=== PATIENT | female | born 1955 | race Caucasian/White ===

== ENCOUNTER 2019-10-25 16:50 | Emergency (ER) | payer MEDICARE, SELFPAY ==
[2019-10-25 16:54] VITALS: BP 123/104; PULSE 82; RESP 19; TEMP 36.8; O2SAT 89; BMI 40.4
--- NOTE | 2019-10-25 17:11 | ED.VIS.GEN ---
History of Present Illness Chief Complaint: Fall Informant: Patient Onset: Today Current Severity: Moderate Maximum Severity: Severe Narrative: Patient presents after a fall down 2 steps at home. She states she lost her balance and fell backwards. She complaining of pain to her right arm and her back. She had a reverse right shoulder replacement last year at the [facility]. She is right-hand dominant. - Past Medical History (1) Presence of IVC filter Status: Chronic (2) Kidney stone Status: Chronic (3) Hypothyroid Status: Chronic (4) Anxiety Status: Chronic Past Medical History - Allergies and Home Meds Allergies/Adverse Reactions: Allergies Sulfa (Sulfonamide Antibiotics) Allergy (Verified 10/25/19 16:52) Rash erythromycin base Adverse Reaction (Verified 10/25/19 16:52) Abd cramps/diarrhea Penicillins Adverse Reaction (Verified 10/25/19 16:52) Abd cramps/diarrhea Primary Care Physician: Sixto Viera III, MD [Primary Care Provider] - Prior records reviewed: Yes Surgical History: appendectomy, cholecystectomy, gastric bypass, - - Reverse right shoulder replacement Lives: Spouse/ Significant Other Review of Systems General: Denies: Chills, Fever Eyes: Denies: Visual changes - bilaterally ENT: Denies: Bilateral ear pain Cardiovascular: Denies: Chest pain Respiratory: Denies: Dyspnea Gastrointestinal: Denies: Abdominal pain Musculoskeletal: Reports: Back pain, Extremity Pain Neurological: Denies: Headache, Parasthesia Hematologic: Denies: Easy bruising, Easy bleeding Allergy: Denies: Uticaria Physical Exam Vital Signs/Narrative: Vital Signs Temp Pulse Resp BP Pulse Ox 10/25/19 16:54 98.2 F 82 19 H 123/104 H 89 Inital Vital Signs reviewed: Yes General: Well nourished, Well developed Head: Normocephalic ENT: Moist mucous membranes Neck: Supple Cardiovascular: Regular rate, Regular rhythm Respiratory: No distress, CTA bilaterally Abdomen: Soft, Nontender Extremities: - - Tenderness of the right proximal humerus with deformity noted. Strong distal pulses. No tenderness at the wrist or elbow. Can wiggle fingers. Neurological: Alert, Oriented x3 Psychological: Normal affect Diagnostic/Tx/Re-eval Portable chest x-ray per my review shows no pneumothorax. Right humerus fracture shows a midshaft humerus periprosthetic fracture. - Medical Decision Making Patient was given morphine and Zofran for pain control. X-ray results are discussed with her. She does have a periprosthetic midshaft humerus fracture. I will speak with orthopedics at [facility] where she had her procedure done for transfer. On repeat exam patient continues to have good distal pulses and can wiggle fingers. ED Disposition - Plan for ED Patient: Disposition: [facility] - Main Diagnosis: Periprosthetic fracture around internal prosthetic right shoulder joint Referrals: Sixto Viera III, MD [Primary Care Provider] -
[2019-10-25 17:13] VITALS: O2SAT 96
[2019-10-25] MEDS: Ondansetron 4 MG/2 ML Vial IV (17:55)
[2019-10-25] MEDS: 0.9% Normal Saline 1,000 ML 15 ML IV (17:55)
[2019-10-25] MEDS: Morphine 4 MG/ML Syringe IV (17:56)
[2019-10-25 18:03] LABS: Absolute Lymphocyte Count 1.55 X10^3/uL (0.83-4.51); Absolute Neutrophil Count 16.1 X10^3/uL (2.0-7.7); Basophil# 0.08 X10^3/uL; Basophil% 0.4 % (0-1); Eosinophil# 0.09 X10^3/uL; Eosinophils% 0.5 % (0-5); Hematocrit 42.5 % (37-47); Hemoglobin 13.7 g/dL (12.0-15.0); Lymphocyte # 1.55 X10^3/ul (4.0); Lymphocyte % 8.2 % (19-41); Mean Corp Hgb Conc 32.2 g/dL (32-36); Mean Corpuscular Hgb 31.1 pg (27.0-32.0); Mean Corpuscular Volume 96.6 fL (81-99); Mean Platelet Vol. 10.6 fl (6.2-12.0); Monocyte# 0.99 X10^3/uL; Monocyte% 5.2 % (0-10); NRBC Flagged by Analyzer 0 % (0-5); Neutrophil % 85.1 % (47-70); Platelet Count 268 K/mm3 (150-450); RBC Distribution Width CV 14.1 % (11.6-14.6); RBC Distribution Width SD 50.5 fl (35.1-43.9); White Blood Count 18.9 K/mm3 (4.4-11.0)
[2019-10-25 18:16] LABS: Anion Gap 4 (5-15); BUN 22 mg/dL (7-18); BUN/Creat Ratio 26.5 RATIO (10-20); Calcium,Total 8.5 mg/dL (8.5-10.1); Chloride 108 mmol/L (98-107); Creatinine, Serum 0.83 mg/dL (0.55-1.02); EST Glomerular Filtration Rate 73 mL/min (>60); Est Glom Filt Rate - Afr Amer 89 mL/min (>60); Estimated Creatinine Clearance 58.35 ml/min; Glucose 133 mg/dL (74-106); Potassium 4.7 mmol/L (3.5-5.1); Sodium Level 142 mmol/L (136-145)
--- NOTE | 2019-10-25 18:20 | RAD_ITS ---
STUDY: X-RAY - RIGHT HUMERUS REASON FOR EXAM: Female, 64 years old. Fall today. Rt arm pain. TECHNIQUE: 3 view(s) of the humerus. COMPARISON: None. FINDINGS: Examination is extremely limited due to positioning, body habitus and technique. There is shoulder prosthesis with probable fracture and angulation of the mid humerus. RAD/Humerus min 2 Views IMPRESSION: Possible mid humeral fracture at the prosthesis tip. Extremely limited exam. Refer to proper diagnostic imaging. Electronically Signed: Aleks Pérez, at 19:25 EDT Tel , Service support ,
--- NOTE | 2019-10-25 18:20 | RAD_ITS ---
STUDY: X-RAY CHEST REASON FOR EXAM: Female, 64 years old. fall today. Rt arm pain TECHNIQUE: Frontal view of the chest COMPARISON: None. FINDINGS: The lungs are clear and expanded. There is no demonstrated pleural abnormality. Normal size heart. Normal mediastinum and frida. Normal visualized pulmonary arteries. Normal visualized aortic arch and descending thoracic aorta. Normal visualized thoracic spine. Normal visualized ribs, clavicles, and shoulders. There is no demonstrated abnormality of the visualized soft tissue structures of the upper abdomen. RAD/Chest 1 View (Portable) IMPRESSION: Normal x-ray examination of the chest. Electronically Signed: Aleks Pérez, at 19:26 EDT Tel , Service support ,
[2019-10-25 20:02] VITALS: BP 113/65; PULSE 72; RESP 16; TEMP 37.3; O2SAT 98
[2019-10-25 23:00] VITALS: BP 108/79; PULSE 79; RESP 16; O2SAT 93
[2019-10-26] VITALS: BP 120/70; PULSE 82; RESP 18; O2SAT 96
[2019-10-26] MEDS: Morphine 4 MG/ML Syringe IV ×2 (01:54→07:40)
[2019-10-26 02:00] VITALS: BP 103/59; PULSE 78; RESP 15; O2SAT 96
[2019-10-26 04:00] VITALS: BP 122/76; PULSE 78; RESP 17; O2SAT 97
[2019-10-26 06:00] VITALS: BP 117/76; PULSE 72; RESP 13; O2SAT 99
--- NOTE | 2019-10-26 07:18 | ED.RN ---
[facility] TRANSFER LINE CONTACTED REGARDING STATUS OF BED AVAILABILITY, STATES PATIENT REMAINS ON LIST AND WAITING FOR DISCHARGES PRIOR TO BED ASSIGNMENT. WILL CONTINUE TO FOLLOW UP.
[2019-10-26 08:10] VITALS: BP 120/64; PULSE 81; RESP 12; O2SAT 98
--- NOTE | 2019-10-26 08:10 | ED.RN ---
BED ASSIGNMENT OBTAINED FROM [facility]. H-70 BED 38. [facility] 30 MIN ETA.
== END 2019-10-26 09:17 | disposition short-term general hospital (02) ==
PROVIDERS: Emergency Provider Emergency Medicine; PCP Family Medicine
DX: M97.31XA Periprosthetic fracture around internal prosthetic right shoulder joint, initial encounter (principal); S42.301A Unspecified fracture of shaft of humerus, right arm, initial encounter for closed fracture; W10.9XXA Fall (on) (from) unspecified stairs and steps, initial encounter; Y93.9 Activity, unspecified; Y92.009 Unspecified place in unspecified non-institutional (private) residence as the place of occurrence of the external cause; Y99.9 Unspecified external cause status; E03.9 Hypothyroidism, unspecified; F41.9 Anxiety disorder, unspecified; Z79.01 Long term (current) use of anticoagulants; Z79.899 Other long term (current) drug therapy; Z98.84 Bariatric surgery status; Z87.442 Personal history of urinary calculi
CPT/HCPCS: 51702; 71045; 73060; 80048; 85025; 96360; 96361; 96374; 96375; 96376; 99285; J7030; A4216; J2405

== ENCOUNTER 2019-11-17 10:53 | Emergency (ER) | payer MEDICARE, SELFPAY ==
[2019-11-17 10:54] VITALS: BP 136/69; PULSE 73; RESP 18; TEMP 36.8; O2SAT 93; BMI 37.8
--- NOTE | 2019-11-17 11:08 | ED.VIS.GEN ---
History of Present Illness Chief Complaint: Fever Informant: Patient, Significant Other Onset: Yesterday - T-max 101.6 ?F Context: Sudden Onset Timing: Intermittent Quality: Fever Location: Not applicable Current Severity: - - Presently no elevated temperature Maximum Severity: Moderate Worsened by: Nothing Relieved by: Nothing Associated Symptoms: No associated symptoms Narrative: Patient is a 64-year-old woman who was admitted 2 weeks ago to the [facility] due to a right arm fracture, finger fracture and multiple rib fractures. She presents because of documented temperature 101.6 ?F last evening as a T-max. She denies headache. She denies photophobia, neck pain or neck stiffness. She denies rhinorrhea, congestion postnasal drainage. Denies change in smell or taste. She denies ear pain or drainage. She denies cough or shortness of breath. She denies nausea, vomiting or diarrhea. She denies dysuria, frequency, urgency or hematuria. She has not noted any rashes. She has no ill contacts. Prior similar symptoms: No Recent Illness/Hospitalization: Yes - Past Medical History (1) Hypothyroid Status: Chronic (2) Kidney stone Status: Chronic (3) Presence of IVC filter Status: Chronic Past Medical History - Allergies and Home Meds Allergies/Adverse Reactions: Allergies Sulfa (Sulfonamide Antibiotics) Allergy (Verified 11/17/19 10:57) Rash erythromycin base Adverse Reaction (Verified 11/17/19 10:57) Abd cramps/diarrhea Penicillins Adverse Reaction (Verified 11/17/19 10:57) Abd cramps/diarrhea Primary Care Physician: Sixto Viera III, MD [Primary Care Provider] - Prior records reviewed: Yes Surgical History: appendectomy, cholecystectomy, gastric bypass, - - Reverse right shoulder replacement Lives: Spouse/ Significant Other Smoking Status: Never smoker Alcohol: None Drugs: None Review of Systems General: Reports: Fever. Denies: Chills, Malaise, Subjective, Sweats, Weight loss, - Eyes: Denies: Visual changes - bilaterally, Blurred Vision - bilaterally ENT: Denies: Bilateral ear pain, Rhinorrhea, Sore throat Cardiovascular: Reports: Chest pain - Due to multiple rib fractures on the right.. Denies: Palpitations Respiratory: Denies: Dyspnea, Cough, Dyspnea on exertion Gastrointestinal: Denies: Abdominal pain, Nausea, Vomiting, Diarrhea, Melena, Hematochezia Genitourinary: Denies: Dysuria, Hematuria, Frequency Musculoskeletal: Denies: Myalgias, Arthralgias, Neck pain, Back pain, Swelling, Extremity Pain Skin: Denies: Rash, Wounds Neurological: Denies: Headache, Weakness, Numbness Endocrine: Denies: Polyuria, Polydipsia Hematologic: Denies: Easy bruising, Easy bleeding Physical Exam Vital Signs/Narrative: Vital Signs Temp Pulse Resp BP Pulse Ox 11/17/19 10:54 98.3 F 73 18 136/69 H 93 Inital Vital Signs reviewed: Yes General: Well nourished, Well developed, Obese, No Acute Distress Head: Normocephalic, Atraumatic Eyes: Perrl, EOMI ENT: Moist mucous membranes, No rhinorrhea Neck: Supple, Nontender, No lymphadenopathy, No JVD Cardiovascular: Regular rate, Regular rhythm, No murmurs, Normal S1, Normal S2 Respiratory: No distress, CTA bilaterally, Chest tenderness Abdomen: Soft, Nontender, Nondistended, Normal bowel sounds Rectal: Deferred Back: Nontender, Normal Inspection. Negative for: CVA tenderness Extremities: Nontender, Edema - Pitting 2 mm Skin: Normal color, No rash, No Trauma. Negative for: Cyanosis, Diaphoresis, Jaundice Neurological: Alert, Oriented x3, Cranial nerves II-XII grossly intact, Normal Strength, Normal Sensation Psychological: Normal affect, Normal Mood Diagnostic/Tx/Re-eval Impressions Chest X-Ray 11/17/19 11:50 IMPRESSION: Small right pleural effusion with right basilar atelectasis/infiltrate. Stable increased linear markings at the left lung base. Electronically Signed: Carlos Villareal, at 12:12 EDT , Service support , 11/17/19 11:50 Chest PA and Lateral [RAD] Stat Laboratory Results 11/17/19 11/17/19 11/17/19 11:44 11:44 11:44 WBC 14.6 H RBC 4.04 L Hgb 12.4 Hct 39.3 MCV 97.3 MCH 30.7 MCHC 31.6 L RDW Std Deviation 53.8 H RDW Coeff of Steffany 15.0 H Plt Count 361 MPV 10.0 Immature Gran % (Auto) 1.000 H Neut % (Auto) 88.9 H Lymph % (Auto) 4.8 L [place] % (Auto) 4.7 Eos % (Auto) 0.1 Baso % (Auto) 0.5 Absolute Neuts (auto) 12.9 H Absolute Lymphs (auto) 0.70 L Nucleated RBC % 0 Sodium 138 Potassium 4.3 Chloride 103 Carbon Dioxide 32.0 Anion Gap 3 L BUN 16 Creatinine 0.74 Estim Creat Clear Calc 65.45 Est GFR (MDRD) Af Amer 101 Est GFR (MDRD) Non-Af 84 BUN/Creatinine Ratio 21.6 H Glucose 109 H Lactic Acid 1.4 Calcium 8.8 Urine Color Urine Clarity Urine pH Ur Specific [place] Urine Protein Urine Glucose (UA) Urine Ketones Urine Occult Blood Urine Nitrite Urine Bilirubin Urine Urobilinogen Ur Leukocyte Esterase Urine RBC Urine WBC Ur Squamous Epith Cells Urine Bacteria Urine Mucus 11/17/19 12:25 WBC RBC Hgb Hct MCV MCH MCHC RDW Std Deviation RDW Coeff of Steffany Plt Count MPV Immature Gran % (Auto) Neut % (Auto) Lymph % (Auto) [place] % (Auto) Eos % (Auto) Baso % (Auto) Absolute Neuts (auto) Absolute Lymphs (auto) Nucleated RBC % Sodium Potassium Chloride Carbon Dioxide Anion Gap BUN Creatinine Estim Creat Clear Calc Est GFR (MDRD) Af Amer Est GFR (MDRD) Non-Af BUN/Creatinine Ratio Glucose Lactic Acid Calcium Urine Color Yellow Urine Clarity Cloudy Urine pH 7.0 Ur Specific [place] 1.010 Urine Protein 15 H Urine Glucose (UA) Normal Urine Ketones Negative Urine Occult Blood 50 H Urine Nitrite Positive H Urine Bilirubin Negative Urine Urobilinogen 1 H Ur Leukocyte Esterase 500 H Urine RBC 0 SEEN Urine WBC 10-25 SEEN Ur Squamous Epith Cells 0 SEEN Urine Bacteria 2+ Urine Mucus 0 SEEN Urine appears to be the source. However because there is concern for right lower lobe infiltrate and she also has symptoms of diarrhea rhinorrhea COVID test was obtained. She was discharged with prescription for Augmentin and azithromycin. This will cover both urologic and respiratory pathogens. - Medical Decision Making Patient with complaint of fever. This may represent atelectasis versus pneumonia since she has multiple rib fracture on the right. Chest x-ray was obtained. Will obtain urine to evaluate for urinary tract infection since she is an elderly woman. Appropriate blood work was obtained. She has no symptoms to suggest COVID. Cover test was not performed. ED Disposition - Plan for ED Patient: Disposition: Home or Assisted Living Diagnosis: Suspected 2019 novel coronavirus infection, Infiltrate of lower lobe of right lung present on imaging study, Complicated urinary tract infection Instructions: ED CYSTITIS Female Adult, ED PNEUMONITIS Adult, ED URI Viral Prescriptions: Amox/Clavulanate Tablet [Augmentin Tablet] 875 mg PO Q12H #14 tab Transmission Status: Pending to [id number] Azithromycin [Zithromax Z-Dajuan] 250 mg PO UD #1 box Transmission Status: Pending to [id number] Referrals: Sixto Viera III, MD [Primary Care Provider] - 3-5 Days if not improving Additional Instructions: You should self quarantine yourself until your COVID test returns.
--- NOTE | 2019-11-17 11:50 | RAD_ITS ---
STUDY: X-RAY CHEST REASON FOR EXAM: Female, 64 years old. Recent fall with fx to right humerus, discharged from [facility] 2 weeks ago, today has fever and pain TECHNIQUE: PA and lateral views of the chest. COMPARISON: Comparison is made with prior examination of 10/25/2019. FINDINGS: EKG electrodes are seen. Small right pleural effusion with right basilar atelectasis and/or early infiltrate. Minimal increased linear markings at the left lung base suggestive of atelectasis. Normal size heart. Normal mediastinum and frida. Normal visualized pulmonary arteries. There is atherosclerotic calcification of the aortic arch with tortuosity. Normal visualized thoracic spine. The patient is status post right shoulder replacement. There is no demonstrated abnormality of the visualized soft tissue structures of the upper abdomen. RAD/Chest PA and Lateral IMPRESSION: Small right pleural effusion with right basilar atelectasis/infiltrate. Stable increased linear markings at the left lung base. Electronically Signed: Carlos Villareal, at 12:12 EDT , Service support ,
[2019-11-17 11:56] LABS: Absolute Neutrophil Count 12.9 X10^3/uL (2.0-7.7); Basophil# 0.07 X10^3/uL; Basophil% 0.5 % (0-1); Eosinophil# 0.02 X10^3/uL; Eosinophils% 0.1 % (0-5); Hematocrit 39.3 % (37-47); Hemoglobin 12.4 g/dL (12.0-15.0); Lymphocyte % 4.8 % (19-41); Mean Corp Hgb Conc 31.6 g/dL (32-36); Mean Corpuscular Hgb 30.7 pg (27.0-32.0); Mean Corpuscular Volume 97.3 fL (81-99); Monocyte# 0.69 X10^3/uL; Monocyte% 4.7 % (0-10); NRBC Flagged by Analyzer 0 % (0-5); Neutrophil # 12.94 X10^3/uL (2.7-7.7); Neutrophil % 88.9 % (47-70); Platelet Count 361 K/mm3 (150-450); RBC Distribution Width SD 53.8 fl (35.1-43.9); Red Blood Count 4.04 M/mm3 (4.2-5.4); White Blood Count 14.6 K/mm3 (4.4-11.0)
[2019-11-17 12:15] LABS: Anion Gap 3 (5-15); BUN 16 mg/dL (7-18); BUN/Creat Ratio 21.6 RATIO (10-20); Calcium,Total 8.8 mg/dL (8.5-10.1); Chloride 103 mmol/L (98-107); Creatinine, Serum 0.74 mg/dL (0.55-1.02); EST Glomerular Filtration Rate 84 mL/min (>60); Est Glom Filt Rate - Afr Amer 101 mL/min (>60); Estimated Creatinine Clearance 65.45 ml/min; Glucose 109 mg/dL (74-106); Potassium 4.3 mmol/L (3.5-5.1); Sodium Level 138 mmol/L (136-145)
[2019-11-17 12:18] LABS: Lactic Acid 1.4 mmol/L (0.4-1.9)
[2019-11-17 12:35] LABS: Mucous, Urine 0 SEEN /hpf (<or=2+); Red Blood Cells-Urine 0 SEEN /hpf (0-5); Squamous Epithelial Cells - UA 0 SEEN /hpf (5-10)
[2019-11-17 12:37] LABS: Color, Urine Yellow (Yellow); Glucose, Dipstick Normal (Normal); Ketone-Dipstick Negative (Negative); Leukocyte Esterase-Dipstick 500 /ul (Negative); Nitrite-Dipstick Positive (Negative); Occult Blood-Urine 50 /ul (Negative); Protein-Dipstick 15 mg/dl (Negative); Urine Bilirubin Dipstick Negative (Negative); Urine Clarity Cloudy (Clear); Urine Urobilinogen 1 mg/dl (Normal)
[2019-11-17 12:43] LABS: Bacteria 2+ /hpf (None Seen); White Blood Cells 10-25 SEEN /hpf (0-5)
[2019-11-17 12:53] VITALS: PULSE 85; RESP 18; O2SAT 93
[2019-11-17] MEDS: Ceftriaxone 1 GM/50 ML BAG IV (13:33)
[2019-11-17 13:55] VITALS: BP 95/33; PULSE 83; RESP 18; O2SAT 93
== END 2019-11-17 14:30 | disposition home or self-care (01) ==
PROVIDERS: Emergency Provider Emergency Medicine; PCP Family Medicine
DX: R50.9 Fever, unspecified (principal); E03.9 Hypothyroidism, unspecified; N39.0 Urinary tract infection, site not specified; R91.8 Other nonspecific abnormal finding of lung field; S22.49XD Multiple fractures of ribs, unspecified side, subsequent encounter for fracture with routine healing; S42.301D Unspecified fracture of shaft of humerus, right arm, subsequent encounter for fracture with routine healing; S62.609D Fracture of unspecified phalanx of unspecified finger, subsequent encounter for fracture with routine healing; X58.XXXD Exposure to other specified factors, subsequent encounter; Z79.899 Other long term (current) drug therapy; Z79.01 Long term (current) use of anticoagulants
CPT/HCPCS: 71046; 80048; 81001; 83605; 85025; 87086; 87088; 87186; 87635; 94799; 96365; 99285; J7040; P9612; A4216; U0003

== ENCOUNTER 2020-09-03 14:20 | Inpatient (IN) | payer MEDICARE, SELFPAY ==
[2020-09-03] VITALS (9 sets, daily range): BP systolic 90–103; BP diastolic 46–72; PULSE 58–89; RESP 15–20; TEMP 36.2–37.1; O2SAT 90–96; BMI 39.3; BMI 40.3
--- NOTE | 2020-09-03 15:29 | EKG12_ITS ---
Test Reason : Blood Pressure : / mmHG Vent. Rate : 073 BPM Atrial Rate : 073 BPM P-R Int : 174 ms QRS Dur : 132 ms QT Int : 432 ms P-R-T Axes : 039 072 022 degrees QTc Int : 475 ms Sinus rhythm with Premature atrial complexes Right bundle branch block Abnormal ECG Confirmed by KELLIE GONZALEZ, LILIANA ([id number]), editorial project manager TROY MARCELO ([id number]) on 09/07/2020 2:00:47 PM Referred By: SAKINA Confirmed By:LILIANA HOPKINS MD
--- NOTE | 2020-09-03 15:47 | EX.ED.DYSGE1 ---
HPI History of Present Illness Chief Complaint: Fever Narrative Narrative: 64-year-old female presenting with shortness of breath, fevers, myalgias, cough, malaise since Sunday. Patient states that she does not have any chest pain. Patient states that she normally has to use 1.5 L of O2 via nasal cannula at nighttime when she is sleeping because she had a sleep study that showed she was hypoxic at night. She states that she has had to use this during the week during waking hours. She keeps having to turn it up. Patient states that she does have history of pulmonary embolism and is on Coumadin. She checks her INR levels at home and they have been therapeutic. Patient denies a history of CHF or cardiac issues. She does not know new leg swelling. Patient also complains of dysuria and urinary frequency. She is concerned she might have a urinary tract infection. [facility] Medical History (Updated 09/03/20 @ 22:16 by Elke Varma) Anxiety Arthritis Asthma Cancer Chronic pain DVT (deep venous thrombosis) GERD (gastroesophageal reflux disease) [place] filter in place History of diabetes mellitus resolved following bariatric surgery Kidney disease On home oxygen therapy Pulmonary embolism Home Medications allopurinol 100 mg PO BID 10/25/19 [History Last Taken Unknown] cholecalciferol (vitamin D3) 2,000 unit PO DAILY 10/25/19 [History Last Taken Unknown] fluoxetine 20 mg PO DAILY 10/25/19 [History Last Taken Unknown] warfarin 5 mg PO DAILY 10/25/19 [History Last Taken Unknown] levothyroxine 100 mcg PO DAILY 09/03/20 [History Last Taken Unknown] Allergy/AdvReac Type Severity Reaction Status Date / Time Sulfa (Sulfonamide Allergy Rash Verified 09/03/20 14:23 Antibiotics) erythromycin base AdvReac Abd Verified 09/03/20 14:23 cramps/diarrhea Penicillins AdvReac Abd Verified 09/03/20 14:23 cramps/diarrhea Surgical History (Updated 09/03/20 @ 22:16 by Elke Varma) History of appendectomy History of cholecystectomy History of embolic filter insertion History of reverse total replacement of shoulder joint Hx of gastric bypass Knee joint replacement status Social History Smoking Status: Former smoker ROS ROS ED Constitutional Constitutional ED: Reports chills and fever(s); Denies sweats Eyes Eyes: Denies blurry vision or change in vision ENT ENT ED: Denies ear pain, rhinorrhea or sore throat Cardiovascular Cardiovascular: Denies chest pain, palpitations or racing heartbeat Respiratory/Chest Respiratory/Chest: Reports cough, dyspnea and dyspnea on exertion; Denies sputum Gastrointestinal Gastrointestinal: Denies abdominal pain, constipation, diarrhea or vomiting Genitourinary Genitourinary ED: Reports dysuria and urinary frequency; Denies hematuria Musculoskeletal Musculoskeletal: Reports myalgias; Denies arthralgias or neck pain Integumentary Denies abscess, Abrasions or rash Neurologic Neurologic: Denies headache(s), paresthesias or weakness Psychiatric Psychiatric: Denies anxiety, depression, suicidal ideation or suicidal thoughts Endocrine Endocrinology: Denies polydipsia or polyuria EXAM Physical Exam Const Vital Signs: 09/03/20 14:21 09/03/20 15:29 09/03/20 16:07 Temperature 98.3 F 98.7 F Temperature Source Temporal Oral Pulse Rate 89 77 Respiratory Rate 17 19 H Respiratory Effort Normal Respiratory Pattern Normal Blood Pressure 98/54 L 102/62 Blood Pressure Mean 68 75 Pulse Ox 90 96 Oxygen Delivery Method Room Air Room Air 09/03/20 16:31 09/03/20 17:34 09/03/20 18:27 Temperature 98.4 F 98.3 F Temperature Source Oral Oral Pulse Rate 73 62 68 Respiratory Rate 20 H 18 16 Respiratory Effort Respiratory Pattern Blood Pressure 94/46 L 95/52 L 96/59 L Blood Pressure Mean 62 66 71 Pulse Ox 95 95 96 Oxygen Delivery Method Room Air Room Air Room Air 09/03/20 20:40 Temperature 97.2 F L Temperature Source Temporal Pulse Rate 73 Respiratory Rate 15 Respiratory Effort Respiratory Pattern Blood Pressure 97/63 Blood Pressure Mean 74 Pulse Ox 96 Oxygen Delivery Method Room Air Positive obese General Appearance ED: NAD; Negative for cyanotic or pallor Nutritional Appearance: obese HEENT Reports normocephalic, head/scalp atraumatic and moist mucous membranes Negative for trauma Eyes PERRL and EOMs intact bilaterally Resp normal respiratory effort and clear to auscultation bilaterally Auscultation: Negative for rales, rhonchi or wheezes Cardio regular rate and regular rhythm GI normal to inspection, nondistended, normoactive bowel sounds and non-distended Auscultation: normoactive bowel sounds Palpation: soft Narrative: Deferred Back/Spine Cervical Spine: cervical spine tenderness Extremity normal to inspection General Extremety ED: Negative for edema or tenderness General Extremity: Negative for edema Neuro oriented x3 and CN's II-XII intact bilaterally Sensorium / Orientation: alert Motor Exam: strength 5/5 throughout Psych mental status grossly normal Attitude: No agitated Skin no rashes or lesions noted and no wounds General Skin Exam: Negative for jaundice or pallor MDM MDM MDM Narrative Medical decision making narrative: Patient presenting with shortness of breath. She states she normally only wears oxygen at night and she said this is only 1.5 L via nasal cannula. Patient states she has been having to wear her oxygen around the house because she is dyspneic. She describes dyspnea on exertion but not orthopnea. She also claims she has had fevers at home. She complains of body aches. Patient also is concerned for UTI. Patient's lab work today shows a leukocytosis of 14.4, hemoglobin hematocrit stable, platelets normal INR is 2.2 so she is therapeutic for her pulmonary embolism. She does have an acute kidney injury with a creatinine of 1.90 previously 0.7. She was initially given 500 cc of IV fluids while pending her Covid testing. After testing was negative she was given another liter of fluids. Patient's LFTs are slightly elevated. Her troponin is 0.154. I did speak with the patient again and she states she has not had any sort of chest pain. I rechecked her troponin and it had gone down 0.117. Patient's chest x-ray is interpreted by myself shows no acute cardiopulmonary process as interpreted by myself and radiologist does agree.. Patient's EKG is sinus rhythm at 73 bpm with PACs but there is no sign of ischemic change and no significant interval change from previous EKG performed 20 April 2007 as interpreted by myself. Patient does have urinary tract infection. Given her initial vitals she was pancultured. These are pending. She is started on Rocephin. Impression: 1. UTI 2. Acute kidney injury 3. Elevated troponin 4. Leukocytosis Lab Data Labs: Laboratory Results - last 24 hr 09/03/20 09/03/20 09/03/20 15:40 15:40 15:40 WBC 14.9 H RBC 4.23 Hgb 13.0 Hct 40.0 MCV 94.6 MCH 30.7 MCHC 32.5 RDW Std Deviation 49.3 H RDW Coeff of Steffany 14.1 Plt Count 168 MPV 12.0 Immature Gran % (Auto) 0.700 Neut % (Auto) 91.2 H Lymph % (Auto) 2.7 L [place] % (Auto) 4.2 Eos % (Auto) 0.9 Baso % (Auto) 0.3 Absolute Neuts (auto) 13.6 H Absolute Lymphs (auto) 0.40 L Nucleated RBC % 0 Differential Comment SCANNED PT 23.6 H INR 2.2 APTT 38.9 H Sodium 134 L Potassium 4.2 Chloride 101 Carbon Dioxide 25.0 Anion Gap 8 BUN 33 H Creatinine 1.90 H Estim Creat Clear Calc 25.49 Est GFR (MDRD) Af Amer 34 L Est GFR (MDRD) Non-Af 28 L BUN/Creatinine Ratio 17.4 Glucose 130 H Lactic Acid Calcium 8.5 Total Bilirubin 0.60 AST 189 H ALT 76 H Alkaline Phosphatase 121 H Troponin I 0.154 H Total Protein 6.2 L Albumin 2.4 L Globulin 3.8 Albumin/Globulin Ratio 0.6 L Urine Color Urine Clarity Urine pH Ur Specific [place] Urine Protein Urine Glucose (UA) Urine Ketones Urine Occult Blood Urine Nitrite Urine Bilirubin Urine Urobilinogen Ur Leukocyte Esterase Urine RBC Urine WBC Ur Squamous Epith Cells Amorphous Sediment Urine Bacteria Urine Mucus COVID-19 (ADRIEN) 09/03/20 09/03/20 09/03/20 15:40 16:00 16:40 WBC RBC Hgb Hct MCV MCH MCHC RDW Std Deviation RDW Coeff of Steffany Plt Count MPV Immature Gran % (Auto) Neut % (Auto) Lymph % (Auto) [place] % (Auto) Eos % (Auto) Baso % (Auto) Absolute Neuts (auto) Absolute Lymphs (auto) Nucleated RBC % Differential Comment PT INR APTT Sodium Potassium Chloride Carbon Dioxide Anion Gap BUN Creatinine Estim Creat Clear Calc Est GFR (MDRD) Af Amer Est GFR (MDRD) Non-Af BUN/Creatinine Ratio Glucose Lactic Acid 1.5 Calcium Total Bilirubin AST ALT Alkaline Phosphatase Troponin I Total Protein Albumin Globulin Albumin/Globulin Ratio Urine Color Yellow Urine Clarity Sl. Cloudy Urine pH 5.0 Ur Specific [place] 1.020 Urine Protein 30 H Urine Glucose (UA) Normal Urine Ketones 5 H Urine Occult Blood 25 H Urine Nitrite Negative Urine Bilirubin 1 H Urine Urobilinogen 1 H Ur Leukocyte Esterase 500 H Urine RBC 0-5 SEEN Urine WBC 50-100 SEEN Ur Squamous Epith Cells 5-10 SEEN Amorphous Sediment 1+ URATE Urine Bacteria 3+ Urine Mucus 0 SEEN COVID-19 (ADRIEN) Not Detected 09/03/20 19:25 WBC RBC Hgb Hct MCV MCH MCHC RDW Std Deviation RDW Coeff of Steffany Plt Count MPV Immature Gran % (Auto) Neut % (Auto) Lymph % (Auto) [place] % (Auto) Eos % (Auto) Baso % (Auto) Absolute Neuts (auto) Absolute Lymphs (auto) Nucleated RBC % Differential Comment PT INR APTT Sodium Potassium Chloride Carbon Dioxide Anion Gap BUN Creatinine Estim Creat Clear Calc Est GFR (MDRD) Af Amer Est GFR (MDRD) Non-Af BUN/Creatinine Ratio Glucose Lactic Acid Calcium Total Bilirubin AST ALT Alkaline Phosphatase Troponin I 0.117 H Total Protein Albumin Globulin Albumin/Globulin Ratio Urine Color Urine Clarity Urine pH Ur Specific [place] Urine Protein Urine Glucose (UA) Urine Ketones Urine Occult Blood Urine Nitrite Urine Bilirubin Urine Urobilinogen Ur Leukocyte Esterase Urine RBC Urine WBC Ur Squamous Epith Cells Amorphous Sediment Urine Bacteria Urine Mucus COVID-19 (ADRIEN) Radiography Diagnostic Testing: Radiology Impression Chest X-Ray 09/03/20 16:12 IMPRESSION: No active disease. Electronically Signed: Vivek Thomason MD at 16:27 EDT Tel , Service support , Discharge Plan Disposition Disposition: Acute Care Hospital [facility] Discharge Date/Time: 09/03/20 21:26
--- NOTE | 2020-09-03 16:12 | RAD_ITS ---
STUDY: X-RAY CHEST REASON FOR EXAM: Female, 64 years old. dyspnea TECHNIQUE: Single AP portable view of the chest. COMPARISON: 11/17/2019 FINDINGS: The lungs are clear and expanded. There is no demonstrated pleural abnormality. Normal size heart. Normal mediastinum and frida. Normal visualized pulmonary arteries. Normal visualized aortic arch and descending thoracic aorta. Normal visualized thoracic spine. Status post right shoulder reverse arthroplasty. There is no demonstrated abnormality of the visualized soft tissue structures of the upper abdomen. RAD/Chest 1 View (Portable) IMPRESSION: No active disease. Electronically Signed: Vivek Thomason MD at 16:27 EDT Tel , Service support ,
[2020-09-03 16:14] LABS: Absolute Neutrophil Count 13.6 X10^3/uL (2.0-7.7); Basophil# 0.04 X10^3/uL; Basophil% 0.3 % (0-1); Eosinophil# 0.13 X10^3/uL; Eosinophils% 0.9 % (0-5); Lymphocyte % 2.7 % (19-41); Mean Corp Hgb Conc 32.5 g/dL (32-36); Mean Corpuscular Hgb 30.7 pg (27.0-32.0); Mean Corpuscular Volume 94.6 fL (81-99); Monocyte# 0.62 X10^3/uL; Monocyte% 4.2 % (0-10); NRBC Flagged by Analyzer 0 % (0-5); Neutrophil # 13.58 X10^3/uL (2.7-7.7); Neutrophil % 91.2 % (47-70); POSITIVE DIFFERENTIAL YES; Platelet Count 168 K/mm3 (150-450); RBC Distribution Width CV 14.1 % (11.6-14.6); RBC Distribution Width SD 49.3 fl (35.1-43.9); Red Blood Count 4.23 M/mm3 (4.2-5.4); White Blood Count 14.9 K/mm3 (4.4-11.0)
[2020-09-03 16:19] LABS: Differential Indicated SCAN CRITERIA MET
[2020-09-03 16:31] LABS: International Normalized Ratio 2.2; Prothrombin Time (Protime)PT. 23.6 SECONDS (11.7-14.9)
[2020-09-03 16:32] LABS: ALB/GLOB Ratio 0.6 RATIO (0.9-2.4); AST(SGOT) 189 U/L (15-37); Alanine Aminotransfer ALT/SGPT 76 U/L (13-56); Albumin, Serum 2.4 g/dL (3.2-5.0); Alkaline Phosphatase 121 U/L (45-117); Anion Gap 8 (5-15); BUN 33 mg/dL (7-18); BUN/Creat Ratio 17.4 RATIO (10-20); Calcium,Total 8.5 mg/dL (8.5-10.1); Chloride 101 mmol/L (98-107); EST Glomerular Filtration Rate 28 mL/min (>60); Est Glom Filt Rate - Afr Amer 34 mL/min (>60); Estimated Creatinine Clearance 25.49 ml/min; Globulin 3.8 g/dL (2.2-4.2); Glucose 130 mg/dL (74-106); Potassium 4.2 mmol/L (3.5-5.1); Protein, Total 6.2 g/dL (6.4-8.2); Sodium Level 134 mmol/L (136-145)
[2020-09-03 16:33] LABS: Partial Thromboplast Time 38.9 Seconds (24.1-36.2)
[2020-09-03 16:43] LABS: Differential Comment SCANNED
[2020-09-03 16:44] LABS: Lactic Acid 1.5 mmol/L (0.4-1.9)
[2020-09-03 16:51] LABS: Mucous, Urine 0 SEEN /hpf (<or=2+)
[2020-09-03 16:58] LABS: Color, Urine Yellow (Yellow); Glucose, Dipstick Normal (Normal); Ketone-Dipstick 5 mg/dl (Negative); Leukocyte Esterase-Dipstick 500 /ul (Negative); Nitrite-Dipstick Negative (Negative); Occult Blood-Urine 25 /ul (Negative); Protein-Dipstick 30 mg/dl (Negative); Urine Clarity Sl. Cloudy (Clear); Urine Urobilinogen 1 mg/dl (Normal)
[2020-09-03 17:04] LABS: Urine Bilirubin Dipstick 1 mg/dL (Negative)
[2020-09-03 17:06] LABS: Red Blood Cells-Urine 0-5 SEEN /hpf (0-5); Squamous Epithelial Cells - UA 5-10 SEEN /hpf (5-10); White Blood Cells 50-100 SEEN /hpf (0-5)
[2020-09-03 17:07] LABS: Amorphous Sediment 1+ URATE; Bacteria 3+ /hpf (None Seen)
[2020-09-03] MEDS: Aspirin 81 MG TAB.CHEW 324 MG PO (17:32)
[2020-09-03] MEDS: Ceftriaxone 1 GM/50 ML BAG IV (17:44)
--- NOTE | 2020-09-03 21:05 | HP.PCM.HOS_ITS ---
[facility] - General General Date of Admission: 09/03/20 Date of Service: 09/03/20 Chief Complaint: Chills, dizziness and subjective fever. [facility] Narrative BEAU VENTURA, is a 64 F with past medical history as mentioned above presented to the emergency room mainly because of dizziness and chills. Her illness started 4 days ago with chills, associated with subjective fever as well as dizziness. She has been getting dizzy and lightheaded upon standing. She denied syncope or presyncope. She reported exertional shortness of breath over the last 4 days as well, with moderate activity, associated with dry cough, needed to use her oxygen up to 3 L although she has been using oxygen only at night at 1.5 L and she stated that her pulse during daytime without oxygen in the mid 80s percent. She denied chest pain, palpitation. In the emergency department, she has been afebrile, blood pressure was borderline, not tachycardic, pulse ox was 96% on room air. Her routine blood work was remarkable for leukocytosis, BUN of 33, creatinine is 1.90. LFT revealed elevated liver transaminases. EKG revealed normal sinus rhythm, RBBB, no acute ischemic changes. Troponin 0 0.117. Urinalysis revealed cloudy urine, there was 500 leukocyte esterase, 50-100 WBCs and 3+ bacteria seen. Chest x-ray showed no acute findings. She is being admitted for acute cystitis, acute kidney injury and abnormal cardiac enzymes as well as elevated LFT. [facility] Medical History (Updated 09/03/20 @ 21:[address] Esperanza Culver MD) Arthritis Asthma [place] filter in place History of diabetes mellitus resolved following bariatric surgery Home Medications allopurinol 100 mg PO BID 10/25/19 [History Last Taken Unknown] cholecalciferol (vitamin D3) 2,000 unit PO DAILY 10/25/19 [History Last Taken Unknown] fluoxetine 20 mg PO DAILY 10/25/19 [History Last Taken Unknown] warfarin 5 mg PO DAILY 10/25/19 [History Last Taken Unknown] Allergy/AdvReac Type Severity Reaction Status Date / Time Sulfa (Sulfonamide Allergy Rash Verified 09/03/20 14:23 Antibiotics) erythromycin base AdvReac Abd Verified 09/03/20 14:23 cramps/diarrhea Penicillins AdvReac Abd Verified 09/03/20 14:23 cramps/diarrhea no significant family history Surgical History (Updated 09/03/20 @ 16:29 by Mine Kee) History of appendectomy History of cholecystectomy History of reverse total replacement of shoulder joint Hx of gastric bypass Knee joint replacement status Social History Smoking Status: Former smoker ROS Constitutional Constitutional: Reports chills, fever(s) and malaise; Denies anorexia or fatigue Eyes Eyes: Denies blurry vision, change in eye color, change in vision, double vision or eye pain ENT HEENT: Denies ear pain, epistaxis, headache(s), nasal congestion, post nasal drip or sore throat Cardiovascular Cardiovascular: Reports lightheadedness; Denies chest pain, dyspnea on exertion, edema, orthopnea, palpitations, paroxysmal nocturnal dyspnea or syncope Respiratory/Chest Respiratory/Chest: Reports cough and shortness of breath with exertion; Denies dyspnea, hemoptysis, productive cough or wheezing Gastrointestinal Gastrointestinal: Denies abdominal pain, constipation, diarrhea, hematemesis, hematochezia, melena, nausea or vomiting Genitourinary Genitourinary: Reports burning urination and dysuria; Denies hematuria, urinary hesitancy or urinary urgency Musculoskeletal Musculoskeletal: Denies arthralgias, back pain, joint pain, joint swelling, myalgias or neck pain Neurologic Neurologic: Reports dizziness; Denies confusion, focal weakness, headache(s), numbness, paresthesias, seizures, tingling or tremor(s) Psychiatric Psychiatric: Reports depression; Denies anxiety, hallucinations, homicidal ideation or suicidal ideation Endocrine Endocrinology: Denies change in body appearance, cold intolerance, heat intolerance, polydipsia or polyuria Hematologic/Lymphatic Hematologic/Lymphatic: Denies easy bleeding, easy bruising or lymphadenopathy Allergic/Immunologic Allergic/Immunologic: Denies itchy eyes, rhinitis, throat swelling, tongue swelling, hives, urticaria or wheezing Vital Signs Vital Signs Vital Signs: 09/03/20 14:21 09/03/20 15:29 09/03/20 16:07 Temperature 98.3 F 98.7 F Temperature Source Temporal Oral Pulse Rate 89 77 Respiratory Rate 17 19 H Respiratory Effort Normal Respiratory Pattern Normal Blood Pressure 98/54 L 102/62 Blood Pressure Mean 68 75 Pulse Ox 90 96 Oxygen Delivery Method Room Air Room Air 09/03/20 16:31 09/03/20 17:34 09/03/20 18:27 Temperature 98.4 F 98.3 F Temperature Source Oral Oral Pulse Rate 73 62 68 Respiratory Rate 20 H 18 16 Respiratory Effort Respiratory Pattern Blood Pressure 94/46 L 95/52 L 96/59 L Blood Pressure Mean 62 66 71 Pulse Ox 95 95 96 Oxygen Delivery Method Room Air Room Air Room Air 09/03/20 20:40 Temperature 97.2 F L Temperature Source Temporal Pulse Rate 73 Respiratory Rate 15 Respiratory Effort Respiratory Pattern Blood Pressure 97/63 Blood Pressure Mean 74 Pulse Ox 96 Oxygen Delivery Method Room Air Weight Weight: 229 lb Body Mass Index (BMI) 39.3 Physical Exam Const alert, oriented x3, no apparent distress and no limitations General Appearance: cooperative, comfortable and well kempt HEENT normocephalic, head/scalp atraumatic and moist oral mucous membranes Head and Scalp: normocephalic and atraumatic Eyes PERRL, EOMs intact bilaterally, conjunctivae normal and no scleral icterus General Eye: normal appearance of both eyes Periorbital: periorbital findings normal Neck no lymphadenopathy, supple, no meningeal signs, no JVD and no carotid bruits General: trachea midline Thyroid: thyroid normal Resp normal respiratory effort, normal air movement and clear to auscultation bilaterally Auscultation: Negative for crackles, rales, rhonchi or wheezes Cardio regular rate, regular rhythm, S1 normal heart sound, S2 normal heart sound, no murmurs and no JVD Peripheral Pulses: pulses 2+ throughout GI normal to inspection, nondistended, normoactive bowel sounds, soft to palpation, non-tender and non-distended; Negative for hepatosplenomegaly Auscultation: normoactive bowel sounds Extremity normal to inspection, full ROM and no clubbing, cyanosis or edema Skin no rashes or lesions noted, no wounds and no petechiae Neuro oriented x3, CN's II-XII intact bilaterally and moves all extremities Sensorium / Orientation: alert Speech: speech normal Motor Exam: strength 5/5 throughout Psych mental status grossly normal, affect normal and denies hallucinations Lab / Micro Data Result Diagrams: 09/03/20 15:40 09/03/20 15:40 Labs: Laboratory Results - last 24 hr 05/28/21 05/28/21 05/28/21 15:40 15:40 15:40 WBC 14.9 H RBC 4.23 Hgb 13.0 Hct 40.0 MCV 94.6 MCH 30.7 MCHC 32.5 RDW Std Deviation 49.3 H RDW Coeff of Steffany 14.1 Plt Count 168 MPV 12.0 Immature Gran % (Auto) 0.700 Neut % (Auto) 91.2 H Lymph % (Auto) 2.7 L Dundy % (Auto) 4.2 Eos % (Auto) 0.9 Baso % (Auto) 0.3 Absolute Neuts (auto) 13.6 H Absolute Lymphs (auto) 0.40 L Nucleated RBC % 0 Differential Comment SCANNED PT 23.6 H INR 2.2 APTT 38.9 H Sodium 134 L Potassium 4.2 Chloride 101 Carbon Dioxide 25.0 Anion Gap 8 BUN 33 H Creatinine 1.90 H Estim Creat Clear Calc 25.49 Est GFR (MDRD) Af Amer 34 L Est GFR (MDRD) Non-Af 28 L BUN/Creatinine Ratio 17.4 Glucose 130 H Lactic Acid Calcium 8.5 Total Bilirubin 0.60 AST 189 H ALT 76 H Alkaline Phosphatase 121 H Troponin I 0.154 H Total Protein 6.2 L Albumin 2.4 L Globulin 3.8 Albumin/Globulin Ratio 0.6 L Urine Color Urine Clarity Urine pH Ur Specific [place] Urine Protein Urine Glucose (UA) Urine Ketones Urine Occult Blood Urine Nitrite Urine Bilirubin Urine Urobilinogen Ur Leukocyte Esterase Urine RBC Urine WBC Ur Squamous Epith Cells Amorphous Sediment Urine Bacteria Urine Mucus COVID-19 (ADRIEN) 09/03/20 09/03/20 09/03/20 15:40 16:00 16:40 WBC RBC Hgb Hct MCV MCH MCHC RDW Std Deviation RDW Coeff of Steffany Plt Count MPV Immature Gran % (Auto) Neut % (Auto) Lymph % (Auto) Dundy % (Auto) Eos % (Auto) Baso % (Auto) Absolute Neuts (auto) Absolute Lymphs (auto) Nucleated RBC % Differential Comment PT INR APTT Sodium Potassium Chloride Carbon Dioxide Anion Gap BUN Creatinine Estim Creat Clear Calc Est GFR (MDRD) Af Amer Est GFR (MDRD) Non-Af BUN/Creatinine Ratio Glucose Lactic Acid 1.5 Calcium Total Bilirubin AST ALT Alkaline Phosphatase Troponin I Total Protein Albumin Globulin Albumin/Globulin Ratio Urine Color Yellow Urine Clarity Sl. Cloudy Urine pH 5.0 Ur Specific [place] 1.020 Urine Protein 30 H Urine Glucose (UA) Normal Urine Ketones 5 H Urine Occult Blood 25 H Urine Nitrite Negative Urine Bilirubin 1 H Urine Urobilinogen 1 H Ur Leukocyte Esterase 500 H Urine RBC 0-5 SEEN Urine WBC 50-100 SEEN Ur Squamous Epith Cells 5-10 SEEN Amorphous Sediment 1+ URATE Urine Bacteria 3+ Urine Mucus 0 SEEN COVID-19 ([facility]) Not Detected 09/03/20 19:25 WBC RBC Hgb Hct MCV MCH MCHC RDW Std Deviation RDW Coeff of Steffany Plt Count MPV Immature Gran % (Auto) Neut % (Auto) Lymph % (Auto) Dundy % (Auto) Eos % (Auto) Baso % (Auto) Absolute Neuts (auto) Absolute Lymphs (auto) Nucleated RBC % Differential Comment PT INR APTT Sodium Potassium Chloride Carbon Dioxide Anion Gap BUN Creatinine Estim Creat Clear Calc Est GFR (MDRD) Af Amer Est GFR (MDRD) Non-Af BUN/Creatinine Ratio Glucose Lactic Acid Calcium Total Bilirubin AST ALT Alkaline Phosphatase Troponin I 0.117 H Total Protein Albumin Globulin Albumin/Globulin Ratio Urine Color Urine Clarity Urine pH Ur Specific [place] Urine Protein Urine Glucose (UA) Urine Ketones Urine Occult Blood Urine Nitrite Urine Bilirubin Urine Urobilinogen Ur Leukocyte Esterase Urine RBC Urine WBC Ur Squamous Epith Cells Amorphous Sediment Urine Bacteria Urine Mucus COVID-19 ([facility]) Radiology Impression Chest X-Ray 09/03/20 16:12 IMPRESSION: No active disease. Electronically Signed: Vivek Thomason MD at 16:27 EDT Tel , Service support , Assessment & Plan Assessment/Plan (1) Elevated LFTs: (2) Abnormal cardiac enzyme level: (3) REGINE (acute kidney injury): (4) Acute cystitis: (5) Hypothyroidism: (6) History of DVT (deep vein thrombosis): (7) Gout: (8) History of pulmonary embolism: (9) Presence of IVC filter: PLAN: This is a 64 years old female patient presented to the emergency room because of chills, dizziness, cough and shortness of breath, found to have acute cystitis, acute kidney injury as well as abnormal cardiac enzymes and she is being admitted for evaluation and treatment. #1 abnormal cardiac enzymes: EKG reviewed, revealed a right bundle branch block, no acute ST elevation. Patient denied any chest pain. She had no history of CAD. Chest x-ray was unremarkable. Blood pressure was borderline, mean audie rial pressure is 80. Lactic acid was normal. No evidence of septic shock. Plan: Admit to PCU, cardiac monitoring, serial cardiac enzymes, repeat EKG tomorrow morning, 2D echocardiogram, start baby aspirin, Lipitor, IV fluids, Zofran as needed, repeat CBC, CMP and INR tomorrow morning, PT OT evaluation and treatment. #2 acute cystitis: Start urine culture, start IV Rocephin, IV fluids. #3 acute kidney injury: Likely due to borderline hypotension and poor oral intake. Baseline kidney function is normal. Plan: IV fluids, input output chart, avoid nephrotoxic drugs, repeat BMP tomorrow morning. #4 elevated LFT: She history of cholecystectomy. Denied right upper quadrant pain. Plan: IV fluids, monitor LFT tomorrow morning. #5 history of PE/DVT/status post IVC filter: She is on Coumadin, INR is therapeutic. Currently, she is not hypoxic, not tachycardic. #6 hypothyroidism: Continue levothyroxine. #7 depression: Continue fluoxetine. #8 DVT prophylaxis: INR is 2.2. This note was generated with [employer] dictation software. It may contain incorrect words, spelling, and punctuation that were not noted in checking the note before signing. Visit Charges Inpatient E&M: 94801 Init Hosp L3
[2020-09-03] MEDS: 0.9% Normal Saline 1,000 ML 100 ML IV (22:15)
--- NOTE | 2020-09-03 23:05 | NURSING ---
THIS RN HAD TO REORDER ADMISSIONS ORDERS DUE TO THEM ALL GETTING CANCELLED.
[2020-09-03 23:11] LABS: Lipase 49 U/L (73-393)
[2020-09-03 23:17] LABS: Hemoglobin A1c 5.7 % (3.8-5.6)
[2020-09-04] VITALS (15 sets, daily range): BP systolic 88–126; BP diastolic 54–65; PULSE 61–85; RESP 16–18; TEMP 36.8–38.3; O2SAT 95–99
--- NOTE | 2020-09-04 00:29 | ECHOCS_ITS ---
Reason For Study: Abnn Cardiac Enzymes Procedure This was a 2D Doppler, Color Flow transthoracic echocardiogram. Contrast injection was performed. Exam performed portable in patient room. Left Ventricle Normal left ventricle. The estimated ejection fraction is EF 55-60% %. Right Ventricle Normal right ventricle. Atria Normal left atrium. Normal right atrium. Mitral Valve The mitral valve is structurally normal. No prolapse or stenosis seen. Tricuspid Valve Normal tricuspid valve. Aortic Valve Aortic sclerosis, no stenosis. Pulmonic Valve The pulmonic valve is not well visualized. Great Vessels Normal aortic root. Pericardium/Pleural No pericardial effusion. Medication Diluted definity 3ml given slow IV push to enhance endocardial definition. MMode/2D Measurements & Calculations LVIDd: 4.1 cm IVSd: 1.0 cm Ao root diam: 3.3 cm LVIDs: 2.1 cm LVPWd: 1.1 cm RVDd: 3.7 cm FS: 48.5 % LAV(MOD-bp): 50.6 ml LVAd ap4: 28.8 cm2 SV(MOD-sp4): 61.6 ml LAV(MOD-bp) Indexed: 24.2 ml/m2 LVLd ap4: 7.4 cm LAV(MOD-sp2): 47.9 ml EDV(MOD-sp4): 89.7 ml LAV(MOD-sp4): 52.3 ml EDV(sp4-el): 95.1 ml LVAs ap4: 14.6 cm2 LVLs ap4: 6.3 cm ESV(MOD-sp4): 28.1 ml ESV(sp4-el): 28.7 ml EF(MOD-sp4): 68.7 % EF(sp4-el): 69.9 % SV(sp4-el): 66.4 ml LA A4 area: 19.0 cm2 LA dimension(2D): 3.6 cm RA A4 area: 18.1 cm2 Doppler Measurements & Calculations MV E max rishi: 100.0 cm/sec Lat Peak E' Rishi: 13.6 cm/sec Med Peak E' Rishi: 13.4 cm/sec MV A max rishi: 120.2 cm/sec E/E' lat: 7.3 E/E' med: 7.5 MV E/A: 0.83 Ao V2 max: 158.3 cm/sec LV V1 max: 127.9 cm/sec PA V2 max: 93.4 cm/sec Ao max P.0 mmHg LV V1 max P.7 mmHg Ao V2 mean: 107.1 cm/sec Ao mean P.1 mmHg Ao V2 VTI: 29.1 cm TR max rishi: 292.4 cm/sec TR max P.2 mmHg ECHO/Echo Complete W/ Contrast Interpretation Summary The estimated ejection fraction is EF 55-60% %. Normal LV function No prior echo to compare Ordering Physician: Esperanza Culver Referring Physician: Sixto Viera Performed By: Andie Kimble, CHUY, RVT
--- NOTE | 2020-09-04 05:55 | EKG12_ITS ---
Test Reason : ABN LABS Blood Pressure : / mmHG Vent. Rate : 064 BPM Atrial Rate : 064 BPM P-R Int : 000 ms QRS Dur : 144 ms QT Int : 490 ms P-R-T Axes : 000 097 042 degrees QTc Int : 505 ms Sinus Rhythm with occasional PSVC's Right bundle branch block Abnormal ECG Confirmed by CAMELIA GONZALEZ, TIFFANY ([id number]), managing editor TROY MARCELO ([id number]) on 09/08/2020 1:13:42 PM Referred By: JAMES Confirmed By:TIFFANY DENISE MD
[2020-09-04 08:28] LABS: Absolute Lymphocyte Count 0.79 X10^3/uL (0.83-4.51); Absolute Neutrophil Count 9.1 X10^3/uL (2.0-7.7); Basophil# 0.04 X10^3/uL; Basophil% 0.4 % (0-1); Eosinophil# 0.11 X10^3/uL; Hematocrit 37.7 % (37-47); Lymphocyte # 0.79 X10^3/ul (0.83-4.51); Lymphocyte % 7.1 % (19-41); Mean Corp Hgb Conc 31.8 g/dL (32-36); Mean Corpuscular Hgb 30.8 pg (27.0-32.0); Mean Corpuscular Volume 96.9 fL (81-99); Mean Platelet Vol. 11.9 fl (6.2-12.0); Monocyte# 0.98 X10^3/uL; Monocyte% 8.8 % (0-10); NRBC Flagged by Analyzer 0 % (0-5); Neutrophil # 9.12 X10^3/uL (2.7-7.7); Neutrophil % 81.9 % (47-70); Platelet Count 180 K/mm3 (150-450); RBC Distribution Width CV 14.2 % (11.6-14.6); RBC Distribution Width SD 50.4 fl (35.1-43.9); Red Blood Count 3.89 M/mm3 (4.2-5.4); White Blood Count 11.1 K/mm3 (4.4-11.0)
[2020-09-04] MEDS: 0.9% Normal Saline 1,000 ML 100 ML IV ×2 (08:31→17:44)
[2020-09-04] MEDS: FLUoxetine 20 MG Capsule PO (08:34)
[2020-09-04 08:35] LABS: ALB/GLOB Ratio 0.6 RATIO (0.9-2.4); AST(SGOT) 75 U/L (15-37); Alanine Aminotransfer ALT/SGPT 62 U/L (13-56); Albumin, Serum 2.1 g/dL (3.2-5.0); Alkaline Phosphatase 104 U/L (45-117); Anion Gap 5 (5-15); BUN 34 mg/dL (7-18); BUN/Creat Ratio 20.7 RATIO (10-20); Chloride 106 mmol/L (98-107); Creatinine, Serum 1.64 mg/dL (0.55-1.02); EST Glomerular Filtration Rate 33 mL/min (>60); Est Glom Filt Rate - Afr Amer 40 mL/min (>60); Estimated Creatinine Clearance 29.53 ml/min; Globulin 3.6 g/dL (2.2-4.2); Glucose 84 mg/dL (74-106); Potassium 4.3 mmol/L (3.5-5.1); Protein, Total 5.7 g/dL (6.4-8.2); Sodium Level 139 mmol/L (136-145)
[2020-09-04 08:45] LABS: International Normalized Ratio 2.6; Prothrombin Time (Protime)PT. 27.2 SECONDS (11.7-14.9)
--- NOTE | 2020-09-04 09:50 | CASEMGMT ---
DAVIDA MARTÍNEZ Assessment: RN MAURICIO in to pt room for initial transition planning/care coordination assessment. DAVIDA MARTÍNEZ introduced self and role at [facility], pt voices understanding and consents to assessment. Pt sitting up in chair with in no distress. Care providers, pharmacy, and demographics verified/updated. Admitting Dx: acute cystitis, REGINE, abn cardiac enzymes PCP: Armida- Physician has retired. Pt is staying with practice but unsure who will be her PCP. Specialists: Tu pancreas MD in [place]; [facility]; Ivanna, bariatric Preferred Pharmacy: [facility] [place] Insurance: [facility] Prescription Benefit: yes LW/HPOA: Pt states she does have LW/DPOA. States DPOA is her and he is to bring in paperwork when he visits today. Aware that it is not on file at [facility]. LNOK: Norbert Pabon, ; Sherin Mccallum, dtr Living Arrangements: Pt lives in the bottom floor of a house with her and it has a ramp to enter. Pt states her son and his family live in the rest of the house. Pt is I in ADL's. Pt denies concerns at home. Transportation: Pt drives self and denies issues with transportation. DME/HHC/SNF: Pt has O2 at home through [facility]. She states she wears 1.5 L only at hs. States she has had HHC in the apst and is unsure who it was provided by. Pt denies SNF stays. Pt states no further concerns/needs. CM to follow O2 needs. Advised pt to contact CM if any further question/concerns/needs arise, voices understanding. Pt Goal: Home Plan: Home with family support, follow for increased O2 needs.
[2020-09-04] MEDS: Ceftriaxone 1 GM/50 ML BAG IV (10:23)
[2020-09-04] MEDS: Levothyroxine 100 MCG Tablet PO (10:24)
--- NOTE | 2020-09-04 16:27 | PN.HOSP_ITS ---
Subjective Subjective Patient reports that she feels much better today. When I arrived in the room she was walking around the room independently rearranging things. She has no complaints this morning other than she continues to be thirsty. Objective Data Objective Data Vital Signs: Vital Signs Temp Pulse Resp BP Pulse Ox 100.9 F H 61 18 126/61 H 96 09/04/20 14:45 09/04/20 14:45 09/04/20 14:45 09/04/20 14:45 09/04/20 14:45 Oxygen Flow Rate (L/min) 2 Oxygen Delivery Method Room Air Weight: 106.6 kg Body Mass Index (BMI) 40.3 Intake & Output: Intake and Output for Last 24 Hours 09/02/20 09/03/20 09/04/20 23:59 23:59 23:59 Intake Total 1050 / 1050 1050 / 1050 Balance 1050 / 1050 1050 / 1050 Lab / Micro Data Result Diagrams: 09/04/20 08:00 09/04/20 08:00 Labs: Laboratory Results - last 24 hr 09/03/20 09/03/20 09/03/20 15:40 15:40 15:40 WBC RBC Hgb Hct MCV MCH MCHC RDW Std Deviation RDW Coeff of Steffany Plt Count MPV Immature Gran % (Auto) Neut % (Auto) Lymph % (Auto) Beadle % (Auto) Eos % (Auto) Baso % (Auto) Absolute Neuts (auto) Absolute Lymphs (auto) Nucleated RBC % Differential Comment SCANNED PT 23.6 H INR 2.2 APTT 38.9 H Sodium 134 L Potassium 4.2 Chloride 101 Carbon Dioxide 25.0 Anion Gap 8 BUN 33 H Creatinine 1.90 H Estim Creat Clear Calc 25.49 Est GFR (MDRD) Af Amer 34 L Est GFR (MDRD) Non-Af 28 L BUN/Creatinine Ratio 17.4 Glucose 130 H Hemoglobin A1c Lactic Acid Calcium 8.5 Total Bilirubin 0.60 AST 189 H ALT 76 H Alkaline Phosphatase 121 H Troponin I 0.154 H Total Protein 6.2 L Albumin 2.4 L Globulin 3.8 Albumin/Globulin Ratio 0.6 L Lipase Urine Color Urine Clarity Urine pH Ur Specific [place] Urine Protein Urine Glucose (UA) Urine Ketones Urine Occult Blood Urine Nitrite Urine Bilirubin Urine Urobilinogen Ur Leukocyte Esterase Urine RBC Urine WBC Ur Squamous Epith Cells Amorphous Sediment Urine Bacteria Urine Mucus COVID-19 (ADRIEN) 09/03/20 09/03/20 09/03/20 15:40 16:00 16:40 WBC RBC Hgb Hct MCV MCH MCHC RDW Std Deviation RDW Coeff of Steffany Plt Count MPV Immature Gran % (Auto) Neut % (Auto) Lymph % (Auto) Beadle % (Auto) Eos % (Auto) Baso % (Auto) Absolute Neuts (auto) Absolute Lymphs (auto) Nucleated RBC % Differential Comment PT INR APTT Sodium Potassium Chloride Carbon Dioxide Anion Gap BUN Creatinine Estim Creat Clear Calc Est GFR (MDRD) Af Amer Est GFR (MDRD) Non-Af BUN/Creatinine Ratio Glucose Hemoglobin A1c Lactic Acid 1.5 Calcium Total Bilirubin AST ALT Alkaline Phosphatase Troponin I Total Protein Albumin Globulin Albumin/Globulin Ratio Lipase Urine Color Yellow Urine Clarity Sl. Cloudy Urine pH 5.0 Ur Specific [place] 1.020 Urine Protein 30 H Urine Glucose (UA) Normal Urine Ketones 5 H Urine Occult Blood 25 H Urine Nitrite Negative Urine Bilirubin 1 H Urine Urobilinogen 1 H Ur Leukocyte Esterase 500 H Urine RBC 0-5 SEEN Urine WBC 50-100 SEEN Ur Squamous Epith Cells 5-10 SEEN Amorphous Sediment 1+ URATE Urine Bacteria 3+ Urine Mucus 0 SEEN COVID-19 ([facility]RIEN) Not Detected 09/03/20 09/03/20 09/03/20 19:25 22:33 22:33 WBC RBC Hgb Hct MCV MCH MCHC RDW Std Deviation RDW Coeff of Steffany Plt Count MPV Immature Gran % (Auto) Neut % (Auto) Lymph % (Auto) Beadle % (Auto) Eos % (Auto) Baso % (Auto) Absolute Neuts (auto) Absolute Lymphs (auto) Nucleated RBC % Differential Comment PT INR APTT Sodium Potassium Chloride Carbon Dioxide Anion Gap BUN Creatinine Estim Creat Clear Calc Est GFR (MDRD) Af Amer Est GFR (MDRD) Non-Af BUN/Creatinine Ratio Glucose Hemoglobin A1c 5.7 H Lactic Acid Calcium Total Bilirubin AST ALT Alkaline Phosphatase Troponin I 0.117 H Total Protein Albumin Globulin Albumin/Globulin Ratio Lipase 49 L Urine Color Urine Clarity Urine pH Ur Specific [place] Urine Protein Urine Glucose (UA) Urine Ketones Urine Occult Blood Urine Nitrite Urine Bilirubin Urine Urobilinogen Ur Leukocyte Esterase Urine RBC Urine WBC Ur Squamous Epith Cells Amorphous Sediment Urine Bacteria Urine Mucus COVID-19 ([facility]RIEN) 09/03/20 09/04/20 09/04/20 22:33 08:00 08:00 WBC 11.1 H RBC 3.89 L Hgb 12.0 Hct 37.7 MCV 96.9 MCH 30.8 MCHC 31.8 L RDW Std Deviation 50.4 H RDW Coeff of Steffany 14.2 Plt Count 180 MPV 11.9 Immature Gran % (Auto) 0.800 Neut % (Auto) 81.9 H Lymph % (Auto) 7.1 L Beadle % (Auto) 8.8 Eos % (Auto) 1.0 Baso % (Auto) 0.4 Absolute Neuts (auto) 9.1 H Absolute Lymphs (auto) 0.79 L Nucleated RBC % 0 Differential Comment PT INR APTT Sodium Potassium Chloride Carbon Dioxide Anion Gap BUN Creatinine Estim Creat Clear Calc Est GFR (MDRD) Af Amer Est GFR (MDRD) Non-Af BUN/Creatinine Ratio Glucose Hemoglobin A1c Lactic Acid Calcium Total Bilirubin AST ALT Alkaline Phosphatase Troponin I 0.080 H 0.037 Total Protein Albumin Globulin Albumin/Globulin Ratio Lipase Urine Color Urine Clarity Urine pH Ur Specific [place] Urine Protein Urine Glucose (UA) Urine Ketones Urine Occult Blood Urine Nitrite Urine Bilirubin Urine Urobilinogen Ur Leukocyte Esterase Urine RBC Urine WBC Ur Squamous Epith Cells Amorphous Sediment Urine Bacteria Urine Mucus COVID-19 ([facility]) 09/04/20 09/04/20 08:00 08:00 WBC RBC Hgb Hct MCV MCH MCHC RDW Std Deviation RDW Coeff of Steffany Plt Count MPV Immature Gran % (Auto) Neut % (Auto) Lymph % (Auto) Beadle % (Auto) Eos % (Auto) Baso % (Auto) Absolute Neuts (auto) Absolute Lymphs (auto) Nucleated RBC % Differential Comment PT 27.2 H INR 2.6 APTT Sodium 139 Potassium 4.3 Chloride 106 Carbon Dioxide 28.0 Anion Gap 5 BUN 34 H Creatinine 1.64 H Estim Creat Clear Calc 29.53 Est GFR (MDRD) Af Amer 40 L Est GFR (MDRD) Non-Af 33 L BUN/Creatinine Ratio 20.7 H Glucose 84 Hemoglobin A1c Lactic Acid Calcium 8.0 L Total Bilirubin 0.30 AST 75 H ALT 62 H Alkaline Phosphatase 104 Troponin I Total Protein 5.7 L Albumin 2.1 L Globulin 3.6 Albumin/Globulin Ratio 0.6 L Lipase Urine Color Urine Clarity Urine pH Ur Specific [place] Urine Protein Urine Glucose (UA) Urine Ketones Urine Occult Blood Urine Nitrite Urine Bilirubin Urine Urobilinogen Ur Leukocyte Esterase Urine RBC Urine WBC Ur Squamous Epith Cells Amorphous Sediment Urine Bacteria Urine Mucus COVID-19 ([facility]) Micro: Microbiology 09/03/20 16:40 Urine, Clean Catch Urine Culture - Preliminary GNR lactose pelletizer tender 09/03/20 16:03 Blood Culture (Wb) - Left Hand Blood Culture - Preliminary Radiography Diagnostic Testing: Radiology Impression Chest X-Ray 09/03/20 16:12 IMPRESSION: No active disease. Electronically Signed: Vivek Thomason MD at 16:27 EDT Tel , Service support , Echocardiogram 09/04/20 00:29 Interpretation Summary The estimated ejection fraction is EF 55-60% %. Normal LV function No prior echo to compare Ordering Physician: Esperanza Culver Referring Physician: Sixto Viera Performed By: Andie Kimble, ELLYNCS, RVT Physical Exam Const alert, oriented x3 and no apparent distress Constitutional Narrative: Obese white female walking independently around her hospital room rearranging things. Appears well, nontoxic Exam Limitations: no limitations HEENT head/scalp atraumatic Head and Scalp: normocephalic Mouth: dry mucous membranes Eyes PERRL, EOMs intact bilaterally and conjunctivae normal Neck no lymphadenopathy, supple and no JVD Resp normal respiratory effort, no retractions, no use of accessory muscles and clear to auscultation bilaterally Auscultation: Negative for crackles, rales, rhonchi or wheezes Cardio regular rate, regular rhythm, S1 normal heart sound, S2 normal heart sound, no murmurs, no rub, no gallops, no clicks and no JVD GI normal to inspection, nondistended, normoactive bowel sounds, soft to palpation, non-tender and non-distended Extremity normal to inspection and no clubbing, cyanosis or edema Peripheral Pulses: Yes pulses 2+ throughout Skin no rashes or lesions noted, no wounds, skin turgor normal, no jaundice, no pe techiae and no mottling Neuro oriented x3, CN's II-XII intact bilaterally and moves all extremities Neuro Narrative: Ambulating independently around the room without any gait abnormalities Sensorium / Orientation: awake, alert, oriented to person, oriented to place and oriented to time Speech: speech normal Motor Exam: strength 5/5 throughout Psych affect normal Assessment & Plan Assessment/Plan (1) Acute cystitis: (2) REGINE (acute kidney injury): PLAN: Acute cystitis/UTI -Urine cultures current growth is gram-negative rafael-lactose pelletizer tender -Continue ceftriaxone -Await identification and sensitivities -We will convert to oral antibiotics once able -Leukocytosis is improved -Suspect patient will be able to be discharged tomorrow REGINE -Baseline serum creatinine is 0.7-0.9 -Serum creatinine on admission was 1.9 and has now trended down to 1.64 -Continue IV fluids -Recheck BMP in a.m. Lightheadedness -Suspect related to dehydration -Resolved -Echo performed and showed an ejection fraction of 55 to 60% and normal LV function without any valvular abnormalities Troponin elevation in the indeterminate range - trended do and now normalized - suspect related to REGINE - echo performed and shows no wall motion abnormality Hypokalemia -Resolved likely related to hypovolemia Transaminitis -Resolved -Likely related to dehydration History of DVT/PE -Status post IVC filter -Patient is currently on Coumadin -INR is therapeutic at 2.6 -Repeat INR in a.m. with antibiotic use patient may end up supratherapeutic History of gout -Continue allopurinol Hypothyroidism -Continue levothyroxine Vitamin D deficiency -Continue 2000 units daily Depression -Continue fluoxetine CODE STATUS -Full code Visit Charges Inpatient E&M: 12172 Subs Hosp L2
[2020-09-04] MEDS: Acetaminophen 325 MG Tablet 650 MG PO (21:25)
[2020-09-05] VITALS (7 sets, daily range): BP systolic 116–133; BP diastolic 54–81; PULSE 55–72; RESP 14–18; TEMP 36.4–36.9; O2SAT 93–99
[2020-09-05] MEDS: 0.9% Normal Saline 1,000 ML 100 ML IV (02:32)
[2020-09-05] MEDS: Levothyroxine 100 MCG Tablet PO (06:29)
[2020-09-05 06:31] LABS: Anion Gap 4 (5-15); BUN 28 mg/dL (7-18); BUN/Creat Ratio 17.2 RATIO (10-20); Calcium,Total 8.1 mg/dL (8.5-10.1); Chloride 110 mmol/L (98-107); Creatinine, Serum 1.63 mg/dL (0.55-1.02); EST Glomerular Filtration Rate 34 mL/min (>60); Est Glom Filt Rate - Afr Amer 41 mL/min (>60); Estimated Creatinine Clearance 29.71 ml/min; Glucose 89 mg/dL (74-106); Potassium 4.3 mmol/L (3.5-5.1); Sodium Level 139 mmol/L (136-145)
[2020-09-05] MEDS: FLUoxetine 20 MG Capsule PO (08:36)
[2020-09-05] MEDS: Acetaminophen 325 MG Tablet 650 MG PO (08:38)
--- NOTE | 2020-09-05 08:48 | CT_ITS ---
STUDY: CT ABDOMEN AND PELVIS WITHOUT CONTRAST REASON FOR EXAM: Female, 64 years old. flank pain RADIATION DOSAGE (If Supplied By Facility): CTDIvol = ( 23.15 ) mGy, DLP = ( 1151.14 ) mGycm TECHNIQUE: Transaxial images were obtained from the dome of the diaphragm to the symphysis pubis without oral contrast, and without intravenous contrast. Sagittal and coronal images were reconstructed. Individualized dose optimization techniques were used for this CT. COMPARISON: None. FINDINGS: Tiny bilateral pleural effusions with some bibasilar atelectasis. The visualized portions of the heart are within normal limits. Normal liver. There are surgical clips in the gallbladder fossa consistent with a prior cholecystectomy. Normal spleen. Normal pancreas. Normal bilateral adrenal glands. 15 mm obstructing stone of the proximal right ureter with severe hydronephrosis and perinephric edema. Normal left kidney. Status post gastric surgery likely gastric bypass. Normal small intestine. There are multiple colonic diverticula consistent with diverticulosis. There is non-visualization of the appendix. Normal abdominal aorta. There is an IVC filter in place. Normal retroperitoneum. Normal urinary bladder. Normal abdominal wall. Moderate levoscoliosis lumbar spine with degenerative disc disease. CT/Abdomen/Pelvis without Cont IMPRESSION: 15 mm obstructing stone of the proximal right ureter with severe hydronephrosis and perinephric edema. Electronically Signed: Vivek Thomason MD at 9:27 EDT Tel , Service support ,
[2020-09-05] MEDS: 0.9% Saline Lock 10 ML Syringe IV (10:21)
[2020-09-05] MEDS: Ceftriaxone 1 GM/50 ML BAG IV (10:21)
--- NOTE | 2020-09-05 13:02 | DS.PCM_ITS ---
Providers Date of Admission: 09/03/20 Primary Care Physician: Dr. Sixto Viera III, MD Reason For Visit: ACUTE CYSTITIS, REGINE, ABNORMAL CARDIAC ENZYMES Diagnosis Discharge Diagnosis (1) Acute cystitis: Status: Acute Code(s): N30.00 - Acute cystitis without hematuria (2) REGINE (acute kidney injury): Status: Acute Code(s): N17.9 - Acute kidney failure, unspecified (3) Hydronephrosis concurrent with and due to calculi of kidney and ureter: Status: Acute Code(s): N13.2 - Hydronephrosis with renal and ureteral calculous obstruction (4) Kidney stone: Status: Chronic Code(s): N20.0 - Calculus of kidney Medications at Discharge Home Medications allopurinol 100 mg PO BID 10/25/19 cholecalciferol (vitamin D3) 2,000 unit PO DAILY 10/25/19 fluoxetine 20 mg PO DAILY 10/25/19 warfarin 5 mg PO DAILY 10/25/19 levothyroxine 100 mcg PO DAILY 09/03/20 Hospital Course Operations None Procedures 2-D Echocardiogram (Ejection fraction 55 to 60%, normal LV function) and - (CT abdomen and pelvis without contrast-15 mm obstructing stone in the proximal right ureter with severe hydronephrosis and perinephritic edema) Summary of Care Provided Minutes Spent on Discharge: 50 Hospital Course: Mrs. Dong is a 64-year-old white female presented to the emergency department at [facility] on 09/03/2020 with a chief complaint of chills, lightheadedness, and fever. On admission she reported that she started having symptoms 4 days prior with chills and associated subjective fever as well as lightheadedness. She reported that she had been getting dizzy/lightheaded upon standing but denied any syncope or presyncopal episodes. She also complained of some exertional shortness of breath, dry cough and increased oxygen utilization. Upon admission her vital signs were stable. Her CBC was remarkable for a leukocytosis, elevated BUN and creatinine, mild transaminitis and a mildly elevated troponin. Her urinalysis was concerning for urinary tract infection and the patient was admitted to the medical floor for treatment for her acute urinary tract infection, kidney injury and to be further evaluated given her mild cardiac enzyme elevation. Her cardiac enzymes at their highest were 0.8 and trended down to normal. We suspect this was related to stress-induced ischemia with her infection. She was placed on ceftriaxone on admission and this was continued throughout her hospital course. Her serum creatinine improved from 1.9-1.64 within 24 hours but then stagnated at 1.63 and with this and subjective history of kidney stones a CT of the abdomen and pelvis was obtained. The CT of her abdomen pelvis showed severe right-sided hydronephrosis with a 15 mm stone and perinephritic stranding/edema. An echocardiogram was performed during her hospitalization given her slightly e levated cardiac enzymes but showed no wall motion abnormality and a normal EF at 55 to 60%. She is on chronic anticoagulation for history of PE/DVT. She also has an IVC filter in place. Her INR on 09/04/2020 was 2.6. Her last dose of Coumadin was on 09/04. Urology is not available this weekend here and we therefore transferred the patient for urological evaluation. She was discharged in stable condition on 09/05/2020 to [facility] with the accepting physician being Dr. Moody from urology. 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 Severe right-sided hydronephrosis Obstructive nephrolithiasis-right REGINE Troponin elevation Transaminitis Hypokalemia History of PE/DVT History of gout Hypothyroidism Vitamin D deficiency Depression Physical Exam Const alert, oriented x3, no apparent distress and no limitations Constitutional Narrative: Obese white female, sitting in bed, appears comfortable, eating breakfast and watching television, nontoxic-appearing General Appearance: cooperative, comfortable, well kempt and well developed Orientation / Consciousness: awake, oriented to person, oriented to place and oriented to time Exam Limitations: no limitations HEENT normocephalic and head/scalp atraumatic Eyes PERRL, EOMs intact bilaterally, conjunctivae normal and no scleral icterus General Eye: normal appearance of both eyes Periorbital: periorbital findings normal Neck no lymphadenopathy, supple and no meningeal signs General: trachea midline Thyroid: thyroid normal Resp normal respiratory effort, normal air movement, no retractions, no use of accessory muscles and clear to auscultation bilaterally Auscultation: Negative for crackles, rales, rhonchi or wheezes Cardio regular rate, regular rhythm, S1 normal heart sound, S2 normal heart sound, no murmurs, no rub, no gallops, no clicks and no JVD Peripheral Pulses: pulses 2+ throughout GI normal to inspection, nondistended, normoactive bowel sounds, soft to palpation, non-tender and non-distended; Negative for hepatosplenomegaly Auscultation: normoactive bowel sounds Extremity normal to inspection, full ROM and no clubbing, cyanosis or edema Skin no rashes or lesions noted, no wounds, skin turgor normal, no jaundice, no petechiae and no mottling Neuro oriented x3, CN's II-XII intact bilaterally and moves all extremities Neuro Narrative: Ambulating independently around the room without any gait abnormalities Sensorium / Orientation: awake, alert, oriented to person, oriented to place and oriented to time Speech: speech normal Psych mental status grossly normal, affect normal and denies hallucinations ABG / Lab / Microbiology Data Result Diagrams: 09/04/20 08:00 09/05/20 05:48 Laboratory: Laboratory Results - last 24 hr 09/05/20 05:48 Sodium 139 Potassium 4.3 Chloride 110 H Carbon Dioxide 25.0 Anion Gap 4 L BUN 28 H Creatinine 1.63 H Estim Creat Clear Calc 29.71 Est GFR (MDRD) Af Amer 41 L Est GFR (MDRD) Non-Af 34 L BUN/Creatinine Ratio 17.2 Glucose 89 Calcium 8.1 L Microbiology: Microbiology 09/03/20 16:40 Urine Culture - Final Urine, Clean Catch Escherichia coli Microbiology 09/03/20 16:40 Urine, Clean Catch Urine Culture - Final Escherichia coli 09/03/20 16:03 Blood Culture (Wb) - Left Hand Blood Culture - Preliminary Radiography Diagnostic Testing: Radiology Impression Echocardiogram 09/04/20 00:29 Interpretation Summary The estimated ejection fraction is EF 55-60% %. Normal LV function No prior echo to compare Ordering Physician: Ashelfah, Ghasem Referring Physician: Sixto Viera Performed By: Andie Kimble, CHUY, RVT Abdomen/Pelvis CT 09/05/20 08:48 IMPRESSION: 15 mm obstructing stone of the proximal right ureter with severe hydronephrosis and perinephric edema. Electronically Signed: Vivek Thomason MD at 9:27 EDT Tel , Service support , Meaningful Use Info Meaningful Use Diagnoses (Choose all that apply): None applicable Discharge Plan Admission Admit Date/Time: 09/03/20 20:59 Primary Reason for Your Visit: UTI Attending Provider: Alexa Cazares Primary Care Provider: Sixto Viera III Discharge Orders/Prescriptions Prescriptions: No Action allopurinol 100 MG tablet 100 mg PO BID RF: 0 warfarin 5 MG tablet 5 mg PO DAILY RF: 0 fluoxetine 20 MG capsule 20 mg PO DAILY RF: 0 cholecalciferol (vitamin D3) 2,000 UNIT capsule 2,000 unit PO DAILY RF: 0 levothyroxine 100 mcg Tablet 100 mcg PO DAILY RF: 0 Referrals / Follow Up: Sixto Viera III, MD [Primary Care Provider] - In 1 Week Disposition Disposition (needs filled in before D/C Order can be placed): Acute Care Hospital Visit Charges Inpatient E&M: 09255 Disch Hosp
--- NOTE | 2020-09-05 13:16 | NURSING ---
REPORT CALLED TO [place] AT [facility]. CONSENT SIGNED BY PT.
== END 2020-09-05 14:10 | disposition short-term general hospital (02) | DRG 690 ==
LOC: ED 16:48 → PCU 20:50
PROVIDERS: Admitting Provider Hospitalist; Emergency Provider Student in an Organized Health Care Education/Training Program; PCP Family Medicine; Visit Provider Internal Medicine
DX: N13.6 Pyonephrosis (principal); Z68.41 Body mass index [BMI] 40.0-44.9, adult; N17.9 Acute kidney failure, unspecified; K21.9 Gastro-esophageal reflux disease without esophagitis; F41.9 Anxiety disorder, unspecified; M19.90 Unspecified osteoarthritis, unspecified site; J45.909 Unspecified asthma, uncomplicated; E03.9 Hypothyroidism, unspecified; M10.9 Gout, unspecified; R79.89 Other specified abnormal findings of blood chemistry; I45.10 Unspecified right bundle-branch block; F32.9 Major depressive disorder, single episode, unspecified; E55.9 Vitamin D deficiency, unspecified; E66.9 Obesity, unspecified; Z79.01 Long term (current) use of anticoagulants; Z86.711 Personal history of pulmonary embolism; Z79.899 Other long term (current) drug therapy; Z86.718 Personal history of other venous thrombosis and embolism; Z98.84 Bariatric surgery status; Z86.39 Personal history of other endocrine, nutritional and metabolic disease; Z87.891 Personal history of nicotine dependence
CPT/HCPCS: 36415; 71045; 74176; 80048; 80053; 81001; 83036; 83605; 83690; 84484; 85025; 85610; 85730; 87040; 87077; 87086; 87088; 87186; 87635; 93005; 93306; 97161; 97166; 97802; 99251; 99285; J7030; J7040; Q9957; U0005; A4216; C8929; G0463; J3490; U0003

== ENCOUNTER 2021-05-18 07:59 | Outpatient (CLI) | payer MEDICARE, SELFPAY ==
--- NOTE | 2021-05-18 08:15 | RAD_ITS ---
STUDY: X-RAY - LUMBAR SPINE REASON FOR EXAM: Female, 65 years old. Back plane. TECHNIQUE: 3 view(s) of the lumbar spine were obtained. COMPARISON: None FINDINGS: Osteopenia. Normal lumbar lordosis. Rotatory levoscoliosis. 7 mm of anterolisthesis of L3 on L2, 1 cm of anterolisthesis of L4 on L3 and 9 mm of anterolisthesis of L5 on L4. Endplate concavities of multiple vertebral bodies compatible with osteoporosis. Anterior wedge compression deformity of L3, age undetermined. Diffuse intervertebral disc space narrowing with osteophyte formation. Clips in the right upper and left upper quadrants of the abdomen. IVC filter. Vascular calcification. RAD/Lumbar Spine 2 or 3 Views IMPRESSION: Osteopenia with diffuse moderate lumbosacral spondylosis. Anterior wedge compression deformity of L3, age undetermined. No evidence of fusion or erosive changes. Electronically Signed: Gordon Niño MD at 10:31 EST ,
--- NOTE | 2021-05-18 08:30 | RAD_ITS ---
STUDY: X-RAY - LEFT KNEE REASON FOR EXAM: Female, 65 years old. Knee pain. TECHNIQUE: 4 view(s) of the knee. COMPARISON: None. FINDINGS: Osteopenia. Moderate medial compartmental arthrosis with osteophyte formation. Moderate arthrosis of the lateral compartment with osteophyte formation. Slight lateral tilt and subluxation of the patella with moderate arthrosis of the patellofemoral compartment. Chondrocalcinosis. RAD/Knee 4 or More Views IMPRESSION: Osteopenia with tricompartmental arthrosis. Chondrocalcinosis. No acute abnormality or erosive changes. Electronically Signed: Gordon Niño MD at 10:29 EST ,
== END 2021-05-18 23:59 | disposition home or self-care (01) ==
PROVIDERS: PCP Family Medicine; Referring Provider Anesthesiology Pain Medicine; Visit Provider Anesthesiology Pain Medicine
DX: M54.9 Dorsalgia, unspecified (principal); M17.12 Unilateral primary osteoarthritis, left knee
CPT/HCPCS: 72100; 73564

== ENCOUNTER → 2022-11-03 | Outpatient (CLI) | payer MEDICARE, SELFPAY ==
[2022-11-03 16:35] LABS: Absolute Lymphocyte Count 2.85 X10^3/uL (0.83-4.51); Absolute Neutrophil Count 4.9 X10^3/uL (2.0-7.7); Basophil# 0.09 X10^3/uL; Eosinophil# 0.18 X10^3/uL; Eosinophils% 2.1 % (0-5); Hematocrit 44.3 % (37-47); Hemoglobin 13.8 g/dL (12.0-15.0); Lymphocyte # 2.85 X10^3/ul (0.83-4.51); Lymphocyte % 32.6 % (19-41); Mean Corp Hgb Conc 31.2 g/dL (32-36); Mean Corpuscular Hgb 30.5 pg (27.0-32.0); Mean Corpuscular Volume 97.8 fL (81-99); Mean Platelet Vol. 10.8 fl (6.2-12.0); Monocyte# 0.67 X10^3/uL; Monocyte% 7.7 % (0-10); NRBC Flagged by Analyzer 0 % (0-5); Neutrophil # 4.93 X10^3/uL (2.7-7.7); Neutrophil % 56.4 % (47-70); Platelet Count 284 K/mm3 (150-450); RBC Distribution Width CV 14.2 % (11.6-14.6); RBC Distribution Width SD 51.2 fl (35.1-43.9); Red Blood Count 4.53 M/mm3 (4.2-5.4); White Blood Count 8.7 K/mm3 (4.4-11.0)
[2022-11-03 16:50] LABS: Vitamin D,25 Hydroxy 75.8 ng/mL
[2022-11-03 16:52] LABS: Uric Acid 4.7 mg/dL (2.6-6.0)
[2022-11-03 16:57] LABS: AST(SGOT) 20 U/L (15-37); Alanine Aminotransfer ALT/SGPT 30 U/L (13-56); Albumin, Serum 3.5 g/dL (3.2-5.0); Alkaline Phosphatase 84 U/L (45-117); Anion Gap 5 (5-15); BUN 28 mg/dL (7-18); BUN/Creat Ratio 26.4 RATIO (10-20); Calcium,Total 9.5 mg/dL (8.5-10.1); Chloride 107 mmol/L (98-107); Cholesterol 189 mg/dL (200); Creatinine, Serum 1.06 mg/dL (0.55-1.02); EST Glomerular Filtration Rate 55 mL/min (>60); Est Glom Filt Rate - Afr Amer 66 mL/min (>60); Globulin 3.5 g/dL (2.2-4.2); Glucose 97 mg/dL (74-106); High Density Lipoprotein 51 mg/dL; Potassium 5.2 mmol/L (3.5-5.1); Sodium Level 142 mmol/L (136-145); Thyroid Stim Hormone (TSH) 0.85 uIU/mL (0.358-3.74); Triglycerides 125 mg/dL; Very Low Density Lipoprotein 25 mg/dL (5-40)
== END | disposition home or self-care (01) ==
PROVIDERS: PCP Internal Medicine; Referring Provider Internal Medicine; Visit Provider Internal Medicine
DX: M81.0 Age-related osteoporosis without current pathological fracture (principal); E11.9 Type 2 diabetes mellitus without complications; E03.9 Hypothyroidism, unspecified; I10 Essential (primary) hypertension; M10.9 Gout, unspecified
CPT/HCPCS: 36415; 80053; 80061; 82306; 83036; 84443; 84550; 85025

== ENCOUNTER → 2022-11-15 | Outpatient (CLI) | payer MEDICARE, SELFPAY | END | disposition home or self-care (01) | PROVIDERS: PCP Internal Medicine; Referring Provider Internal Medicine; Visit Provider Internal Medicine | DX: G47.10 Hypersomnia, unspecified (principal) | CPT/HCPCS: 95810 ==

== ENCOUNTER → 2023-01-10 | Outpatient (CLI) | payer MEDICARE, SELFPAY ==
[2023-01-10 13:31] LABS: Anion Gap 4 (5-15); BUN 28 mg/dL (7-18); Calcium,Total 9.4 mg/dL (8.5-10.1); Chloride 108 mmol/L (98-107); Creatinine, Serum 0.93 mg/dL (0.55-1.02); EST Glomerular Filtration Rate 63 mL/min (>60); Est Glom Filt Rate - Afr Amer 77 mL/min (>60); Glucose 99 mg/dL (74-106); Potassium 4.6 mmol/L (3.5-5.1); Sodium Level 142 mmol/L (136-145)
== END | disposition home or self-care (01) ==
LOC: BIMLAB 09:03
PROVIDERS: PCP Internal Medicine; Referring Provider Internal Medicine; Visit Provider Internal Medicine
DX: I10 Essential (primary) hypertension (principal)
CPT/HCPCS: 36415; 80048

== ENCOUNTER → 2023-02-06 | Outpatient (CLI) | payer MEDICARE, SELFPAY ==
--- NOTE | 2023-02-07 07:56 | PFT ---
INTRODUCTION: The patient is a 67-year-old female who presents for pulmonary function studies secondary to a diagnosis of respiratory disorder. Respiratory therapy reported good patient effort. Bronchodilators were used during testing. INTERPRETATION: Forced expiration spirometry demonstrates the presence of a mild large airways obstructive ventilatory defect. There was no significant response to aerosolized bronchodilators. Spirograms are of good quality and plateau gradually. Body plethysmography was performed and revealed lung volumes to be within normal limits. Diffusing capacity by single breath CO was also within normal limits. IMPRESSION: Irreversible mild large airways obstructive ventilatory defect with preserved lung volumes and diffusion capacity.
== END | disposition home or self-care (01) ==
LOC: PSN 09:45
PROVIDERS: PCP Internal Medicine; Referring Provider Internal Medicine Critical Care Medicine; Visit Provider Internal Medicine Critical Care Medicine
DX: G47.34 Idiopathic sleep related nonobstructive alveolar hypoventilation (principal)
CPT/HCPCS: 94060; 94726; 94729

== ENCOUNTER → 2023-02-08 | Outpatient (CLI) | payer MEDICARE, SELFPAY ==
[2023-02-08 12:50] VITALS: PULSE 107; PULSE 110; PULSE 63; PULSE 70; PULSE 85; PULSE 90; PULSE 92; PULSE 93; O2SAT 88; O2SAT 89; O2SAT 91; O2SAT 93; O2SAT 94; O2SAT 95; O2SAT 97
--- NOTE | 2023-02-08 12:52 | CPS ---
Patient wears O2 at home, currently only at night. DME provider Jose Juan. Patient walked a little over 500 feet in the first 3 minutes on room air before dropping to 88%. Patient recovered quickly upon stopping. Placed patient on 2 lpm O2 for the remainder of the walk. She was able to walk 600 ft in the last 3 minutes, maintaining an SpO2 >90%.
--- NOTE | 2023-02-09 10:33 | PCM.PSN.6M ---
PSN 6 Minute Walk Test 6 Minute Walk Test 6 Minute Walk Test: 6 Minute Walk Test PSN:6-Minute Walk Test Start: 02/08/23 12:50 Freq: Status: Active Protocol: [id number] Document 02/08/23 12:50 CHUYITA (Rec: 02/08/23 12:55 CHUYITA [id number]) 6 Minute Walk Test Date Performed 02/08/23 Time Performed 12:30 Height 5 ft 4 in Weight: 234 lb Weight in Pounds 234.0 lbs Assistive device used: None Pre-test Oxygen Delivery Method Room Air Pulse Ox 94 Pulse Rate (60-100) 63 Dyspnea Viri Scale (0-10) 0.5 Exertion Viri Scale (6-20) 6 1st minute Oxygen Delivery Method Room Air Pulse Ox 93 Pulse Rate (60-100) 85 2nd minute Oxygen Delivery Method Room Air Pulse Ox 89 Pulse Rate (60-100) 107 H 3rd minute Oxygen Delivery Method Room Air Pulse Ox 88 Pulse Rate (60-100) 110 H 4th minute Oxygen Flow Rate (L/min) 2 Oxygen Delivery Method Nasal Cannula Pulse Ox 95 Pulse Rate (60-100) 90 5th minute Oxygen Flow Rate (L/min) 2 Oxygen Delivery Method Nasal Cannula Pulse Ox 93 Pulse Rate (60-100) 92 6th minute Oxygen Flow Rate (L/min) 2 Oxygen Delivery Method Nasal Cannula Pulse Ox 91 Pulse Rate (60-100) 93 Dyspnea Viri Scale (0-10) 3 Exertion Viri Scale (6-20) 13 Post-test Oxygen Flow Rate (L/min) 2 Oxygen Delivery Method Nasal Cannula Pulse Ox 97 Pulse Rate (60-100) 70 Full Laps Walked 20 Partial Lap, Number of Tiles Walked 15 Total Distance Walked (ft) 1195 02/08/23 12:52 Cardiopulmonary Services by Ebony Lemus Patient wears O2 at home, currently only at night. DME provider Jose Juan. Patient walked a little over 500 feet in the first 3 minutes on room air before dropping to 88%. Patient recovered quickly upon stopping. Placed patient on 2 lpm O2 for the remainder of the walk. She was able to walk 600 ft in the last 3 minutes, maintaining an SpO2 >90%. Initialized on 02/08/23 12:52 - END OF NOTE Interpretation Interpretation: The patient ambulated 1195 feet over the course of 6 minutes beginning on room air without assistive devices. Pretesting oxygen saturation was noted to be 94% on room air. With ambulation, the elder oxygen saturation was 88%. 2 L/min of supplemental oxygen was applied, and the patient was able to complete the remainder of the test while maintaining appropriate oxygen saturations. Recommendations Recommendations: 2 L/min of supplemental oxygen should be utilized with exertion.
== END | disposition home or self-care (01) ==
PROVIDERS: PCP Internal Medicine; Referring Provider Internal Medicine Critical Care Medicine; Visit Provider Internal Medicine Critical Care Medicine
DX: G47.34 Idiopathic sleep related nonobstructive alveolar hypoventilation (principal)
CPT/HCPCS: 94618

== ENCOUNTER → 2023-02-21 | Outpatient (CLI) | payer MEDICARE, SELFPAY ==
--- NOTE | 2023-02-21 13:14 | BI_ITS ---
MAMMOGRAPHY - BILATERAL SCREENING REASON FOR EXAM: Female, 67 years old. Routine annual screening examination. PERTINENT HISTORY: Non-contributory. TECHNIQUE: Digital bilateral breast kamaljit (3D mammographic acquisition) in the CC and MLO projections. 2-D mediolateral oblique (MLO) and craniocaudad (CC) views of both breasts were obtained. CAD: Full Field Digital Mammography with Computer Added Detection was performed. COMPARISON: Comparison is made with prior abdomen examination dated April 27, 2021. FINDINGS: Breast Composition: The breasts are almost entirely fatty. There are no dominant masses or suspicious calcifications. Stable small benign-appearing bilateral axillary lymph nodes. No other significant abnormalities are identified. There has been no significant change since the prior study. BI/SCRN MAMM (CAD)W/KAMALJIT BILAT IMPRESSION: Stable bilateral screening mammogram. Yearly follow-up mammogram recommended. (A) ASSESSMENT CATEGORY: BIRADS Category 2: Benign. A letter regarding these results will be sent to the patient by the facility within 30 days. Approximately 10% of breast cancers are not detected by mammography. A normal mammogram should not delay biopsy of a clinically suspicious abnormality. [id number] Electronically Signed: Carlos Villareal MD at 15:24 EST ,
== END | disposition home or self-care (01) ==
LOC: OPBI 13:13
PROVIDERS: PCP Internal Medicine; Referring Provider Internal Medicine; Visit Provider Internal Medicine
DX: Z12.31 Encounter for screening mammogram for malignant neoplasm of breast (principal)
CPT/HCPCS: 77063; 77067

== ENCOUNTER → 2023-03-12 | Outpatient (CLI) | payer MEDICARE, SELFPAY ==
--- NOTE | 2023-03-12 13:44 | ECHOCS_ITS ---
Reason For Study: PHTN Procedure This was a 2D Doppler, Color Flow transthoracic echocardiogram. The study was technically difficult. Due to body habitus. Contrast injection was performed. Exam performed in department. Left Ventricle Normal LV size. Mild concentric left ventricular hypertrophy. The left ventricular ejection fraction is 65 %. Normal diastology for age. Right Ventricle Normal right ventricle. Atria The left and right atria are normal. Mitral Valve The mitral valve is structurally normal. No prolapse or stenosis seen. Tricuspid Valve Normal tricuspid valve. Aortic Valve Trisinus/trileaflet aortic valve. Pulmonic Valve The pulmonic valve is not well visualized. Great Vessels Normal sized aortic root. Pericardium/Pleural No pericardial effusion. Medication 22 gauge I.V. with prn adaptor inserted into left arm. Diluted definity 2.0ml given slow IV push to enhance endocardial definition. MMode/2D Measurements & Calculations LVIDd: 4.2 cm IVSd: 1.2 cm Ao root diam: 3.4 cm LVIDs: 2.8 cm LVPWd: 1.0 cm FS: 33.3 % LAV(MOD-bp): 53.5 ml LVAd ap4: 32.7 cm2 LVAd ap2: 28.1 cm2 LAV(MOD-bp) Indexed: 25.6 ml/m2 LVLd ap4: 8.3 cm LVLd ap2: 7.8 cm LAV(MOD-sp2): 56.3 ml EDV(MOD-sp4): 107.3 ml EDV(MOD-sp2): 82.3 ml LAV(MOD-sp4): 48.2 ml EDV(sp4-el): 108.9 ml EDV(sp2-el): 85.2 ml LVAs ap4: 16.5 cm2 LVAs ap2: 15.6 cm2 LVLs ap4: 7.0 cm LVLs ap2: 6.3 cm ESV(MOD-sp4): 32.2 ml ESV(MOD-sp2): 32.1 ml ESV(sp4-el): 33.2 ml ESV(sp2-el): 33.2 ml EF(MOD-sp4): 70.0 % EF(MOD-sp2): 61.0 % EF(sp4-el): 69.5 % SV(MOD-sp4): 75.2 ml SV(MOD-sp2): 50.2 ml SV(sp4-el): 75.7 ml LA A4 area: 17.3 cm2 LA dimension(2D): 3.7 cm RA A4 area: 14.4 cm2 TAPSE: 1.8 cm Time Measurements MV dec time: 0.25 sec Doppler Measurements & Calculations MV E max rishi: 83.8 cm/sec Lat Peak E' Rishi: 12.7 cm/sec Med Peak E' Rishi: 8.7 cm/sec MV A max rishi: 117.8 cm/sec E/E' lat: 6.6 E/E' med: 9.6 MV E/A: 0.71 MV V2 max: 118.3 cm/sec MV P1/2t max rishi: 91.3 cm/sec Ao V2 max: 138.1 cm/sec MV max P.6 mmHg MV P1/2t: 69.9 msec Ao max P.6 mmHg MV V2 mean: 64.1 cm/sec Ao V2 mean: 86.9 cm/sec MV mean P.9 mmHg MV dec slope: 382.4 cm/sec2 Ao mean P.5 mmHg MV V2 VTI: 37.1 cm MVA(P1/2t): 3.1 cm2 Ao V2 VTI: 30.3 cm AV (velocity ratio): 0.93 LV V1 max: 128.3 cm/sec PA V2 max: 87.4 cm/sec LV V1 max P.6 mmHg PA V2 mean: 64.8 cm/sec LV V1 mean P.3 mmHg LV V1 mean: 87.4 cm/sec LV V1 VTI: 28.1 cm ECHO/Echo Complete W/ Contrast Interpretation Summary Mild concentric left ventricular hypertrophy. The left ventricular ejection fraction is 65 %. Unable to assess pulmonary artery pressures as no tricuspid regurgitant jet not ed. Ordering Physician: Raghavendra Carrasco Referring Physician: Yanique Espinosa Performed By: Natasha Engel RDCS, RVT
== END | disposition home or self-care (01) ==
PROVIDERS: PCP Internal Medicine; Referring Provider Internal Medicine Critical Care Medicine; Visit Provider Internal Medicine Critical Care Medicine
DX: G47.34 Idiopathic sleep related nonobstructive alveolar hypoventilation (principal); Z86.711 Personal history of pulmonary embolism
CPT/HCPCS: 93306; Q9957; A4216; C8929

== ENCOUNTER → 2023-05-07 | Outpatient (CLI) | payer MEDICARE, SELFPAY ==
--- OUTSIDE RECORDS SUMMARY | 2023-05-07 14:50 | XMS RPT_ITS | CCD ---
Author Name Unknown Address [address] [place] [address] Organization [facility] Care Team Providers Care Curtain Cleaner Name Role Phone VIVIANE MAE Attending Unavailable IMCA Referring Unavailable CEBUL, SIXTO Primary Care Unavailable VIVIANE MAE Referring Unavailable CEBUL, SIXTO Primary Care Unavailable VIVIANE MAE Attending Unavailable IMCA Referring Unavailable CEBUShannan, SIXTO Primary Care Unavailable 13, Pharmacist Unavailable Bg Beverly MD Primary Care Provider 13, Pharmacist Unavailable Bg Beverly MD Primary Care Provider 13, Pharmacist Unavailable Bg Beverly MD Primary Care Provider 13, Pharmacist Unavailable Bg Beverly MD Primary Care Provider MORENO STILES DO Attending Unavailable MORENO STILES DO Primary Care Unavailable MORENO STILES DO Admitting Unavailable YOHANA COLLAZO Attending Unavailable BG BEVERLY Primary Care Unavailab Isai GONZALEZ, Yanique Adame Primary Care Provider VIVIANE MAE Referring Unavailable BG BEVERLY Primary Care Unavailab stoddard Allergies Allergy Classification Reported Allergen(s) Allergy Type Date of Onset Reaction(s) Facility (20 sources) Aspartame; Translations: [ASPARTAME] Drug Allergy 6 Other: See Comments [facility] Repository (20 sources) celecoxib; Translations: [CELECOXIB] Drug Allergy 5 Rash [facility] Repository (20 sources) Estrogens; Translations: [ESTROGENS] Drug Allergy 5 Shortness of Breath [facility] Repository (20 sources) Lisinopril; Translations: [LISINOPRIL] Drug Allergy 8 Cough [facility] Repository (20 sources) NSAIDs; Translations: [NSAIDS (NON-STEROIDAL ANTI-INFLAMMATOR Y DRUG)] Propensity to adverse reactions (disorder) 9 Unknown [facility] Repository (20 sources) Penicillins; Translations: [PENICILLINS] Propensity to adverse reactions (disorder) 5 Diarrhea [facility] Repository (20 sources) Sulfonamides (Antibiotic); Translations: [SULFA (SULFONAMIDE ANTIBIOTICS)] Propensity to adverse reactions (disorder) 5 Rash [facility] Repository (20 sources) ERYTHROMYCIN BASE; Translations: [ERYTHROMYCIN BASE] Propensity to adverse reactions (disorder) 5 Diarrhea [facility] Medications Current Medications Medication Drug Class(es) Dates Sig (Normalized) Sig (Original) traZODone hydrochloride 50 mg oral tablet (17 sources) Serotonin Reuptake Inhibitor Start: 04-29-2021 End: 12-06-2021 take 1 tablet by mouth once daily at bedtime traZODone (DESYREL) 50 mg tablet Indications: Chronic insomnia Take 1 tablet by mouth daily at bedtime. 90 tablet 1 06/09/2021 12/06/2021 Active Completed/Discontinued Medications Medication Drug Class(es) Dates Sig (Normalized) Sig (Original) 200 actuat albuterol 0.09 mg/actuat dry powder inhaler (20 sources) beta2-Adrenergic Agonist Start: 04-29-2021 End: 12-13-2022 take 2 puff(s) by inhalation every four hours as needed ProAir RespiClick 90 mcg/actuation breath activated (albuterol sulfate) Inhale 2 Puffs as instructed every 4 hours as needed. 1 Inhaler 1 06/09/2021 12/13/2022 Discontinued Problems Active Problems Problem Classification Problem Date Documented Da te Episodic/Chronic Anxiety disorders (20 sources) Mixed anxiety and depressive disorder; Translations: [Anxiety disorder, unspecified] Onset: 9 04-25-2018 Chronic Coagulation and hemorrhagic disorders (20 sources) Heterozygous Factor V Leiden mutation; Translations: [Activated protein C resistance] Onset: 3 Chronic Conduction disorders (20 sources) Right bundle branch block; Translations: [Unspecified right bundle-branch block] Onset: 2 08-14-2011 Chronic Diabetes mellitus without complication (20 sources) Type 2 diabetes mellitus without complication; Translations: [Type 2 diabetes mellitus without complications] Onset: 5 09-13-2017 Chronic Disorders of lipid metabolism (20 sources) Hyperlipidemia; Translations: [Hyperlipidemia, unspecified] Onset: 5 04-05-2015 Chronic Esophageal disorders (20 sources) Gastroesophageal reflux disease; Translations: [Gastro-esophageal reflux disease without esophagitis] 12-26-2004 Chronic Essential hypertension (20 sources) Benign essential hypertension; Translations: [Essential (primary) hypertension] Onset: 6 07-07-2005 Chronic Gout and other crystal arthropathies (20 sources) Gout; Translations: [Gout, unspecified] Onset: 6 02-19-2006 Chronic Immunizations and screening for infectious disease (1 source) Encounter for screening for other viral diseases; Translations: [Encounter for screening for other viral diseases] Onset: 3 Episodic Miscellaneous mental health disorders (1 source) Chronic insomnia; Translations: [Psychophysiologic insomnia] Chronic Mood disorders (20 sources) Recurrent major depression in partial remission; Translations: [Major depressive disorder, recurrent, in partial remission] Onset: 0 01-13-2020 Chronic Osteoarthritis (20 sources) Arthritis of shoulder region joint; Translations: [Primary osteoarthritis, unspecified shoulder] Onset: 6 04-25-2018 Chronic Other connective tissue disease (20 sources) History of right shoulder arthroplasty; Translations: [Presence of right artificial shoulder joint] Onset: 9 11-28-2018 Chronic Other gastrointestinal disorders (1 source) Bariatric surgery status; Translations: [Bariatric surgery status] Onset: 3 Episodic Other inflammatory condition of skin (20 sources) Rosacea; Translations: [Rosacea, unspecified] Onset: 2 03-25-2012 Chronic Other nutritional; endocrine; and metabolic disorders (20 sources) Metabolic syndrome X; Translations: [Metabolic syndrome] Onset: 6 04-04-2006 Chronic Other nutritional; endocrine; and metabolic disorders (20 sources) Body mass index 40+ - severely obese; Translations: [Morbid (severe) obesity due to excess calories] Onset: 8 01-09-2020 Chronic Other nutritional; endocrine; and metabolic disorders (20 sources) Obese class II; Translations: [Obesity, unspecified] Onset: 1 09-06-2020 Chronic Other nutritional; endocrine; and metabolic disorders (1 source) Body mass index (BMI) 40.0-44.9, adult; Translations: [Body mass index (BMI) 40.0-44.9, adult (HCC)] Onset: 3 Chronic Prolapse of female genital organs (20 sources) Instability of pelvic floor; Translations: [Other female genital prolapse] Onset: 0 04-24-2019 Chronic Residual codes; unclassified (20 sources) Hypoxia; Translations: [Idiopathic sleep related nonobstructive alveolar hypoventilation] Onset: 0 01-21-2020 Chronic Spondylosis; intervertebral disc disorders; other back problems (20 sources) Lumbar spondylosis; Translations: [Spondylosis without myelopathy or radiculopathy, lumbar region] Onset: 0 03-17-2010 Chronic Thyroid disorders (20 sources) Hypothyroidism; Translations: [Hypothyroidism, unspecified] Onset: 5 04-05-2015 Chronic Past or Other Problems Problem Classification Problem Date Documented Da te Episodic/Chronic Calculus of urinary tract (20 sources) Kidney stone; Translations: [Calculus of kidney] Onset: 02-24-2010 02-24-2010 Episodic Cancer of uterus (20 sources) History of malignant neoplasm of uterine body; Translations: [Personal history of malignant neoplasm of other parts of uterus] Onset: 09-14-2006 01-09-2020 Episodic Fracture of upper limb (20 sources) Fracture of shaft of humerus ; Translations: [Displaced comminuted fracture of shaft of humerus, left arm, subsequent encounter for fracture with routine healing] Onset: 10-26-2019 02-05-2020 Episodic Intestinal obstruction without hernia (20 sources) Obstructive defecation syndrome; Translations: [Fecal impaction] Onset: 05-07-2019 05-07-2019 Episodic Neoplasms of unspecified nature or uncertain behavior (20 sources) Benign neoplasm of pancreas; Translations: [Neoplasm of unspecified behavior of digestive system] Onset: 03-25-2012 03-25-2012 Episodic Other aftercare (20 sources) H/O: anticoagulant therapy; Translations: [detention (current) use of anticoagulants] Onset: 08-05-2018 08-05-2018 Episodic Other aftercare (20 sources) Post-discharge follow-up; Translations: [Encounter for follow-up examination after completed treatment for conditions other than malignant neoplasm] Onset: 01-13-2020 01-13-2020 Episodic Other aftercare (20 sources) Long-term current use of anticoagulant; Translations: [detention (current) use of anticoagulants] Onset: 10-05-2021 10-05-2021 Episodic Other and unspecified benign neoplasm (20 sources) Benign neoplasm of colon; Translations: [Benign neoplasm of colon, unspecified] Onset: 08-03-2006 08-03-2006 Episodic Other connective tissue disease (20 sources) Pelvic floor tension; Translations: [Other specified disorders of muscle] Onset: 05-07-2019 05-07-2019 Episodic Other gastrointestinal disorders (20 sources) History of bypass of stomach; Translations: [Bariatric surgery status] Onset: 03-16-2014 03-16-2014 Episodic Other gastrointestinal disorders (20 sources) Slow transit constipation; Translations: [Slow transit constipation] Onset: 05-07-2019 05-07-2019 Episodic Other gastrointestinal disorders (20 sources) Irregular bowel habits; Translations: [Other specified symptoms and signs involving the digestive system and abdomen] Onset: 05-07-2019 05-07-2019 Episodic Other lower respiratory disease (20 sources) Desaturation of blood; Translations: [Hypoxemia] Onset: 10-31-2019 10-31-2019 Episodic Pancreatic disorders (not diabetes) (20 sources) Cyst of pancreas; Translations: [Cyst and pseudocyst of pancreas] Onset: 04-04-2016 04-04-2016 Episodic Pulmonary heart disease (20 sources) H/O: pulmonary embolus; Translations: [Personal history of pulmonary embolism] Onset: 03-18-2013 Episodic Residual codes; unclassified (20 sources) Insomnia; Translations: [Insomnia, unspecified] Onset: 04-05-2015 04-05-2015 Episodic Spondylosis; intervertebral disc disorders; other back problems (20 sources) Chronic low back pain; Translations: [Chronic midline low back pain without sciatica] Onset: 09-26-2017 09-26-2017 Episodic Results Test Name Value Interpretation Reference Range Facil ity Encounters Encounter Date Encounter Type Care Provider Facility Start: 03-28-2023 Telephone encounter Pharmacist Pha [facility] Procedures Date Procedure Procedure Detail Performing Clinician Start: 12-06-2022 Mri abdomen w/o & w/contrast material Viviane Mae MD Work Phone: Start: 03-03-2022 Prothrombin time [facility] Start: 02-03-2022 Prothrombin time [facility] Start: 10-21-2021 Mri abdomen w/o & w/contrast material Viviane Mae MD Work Phone: Start: 07-06-2021 Prothrombin time [facility] Start: 04-27-2021 Mammography Raminshon england [facility] Start: 03-14-2019 Colonoscopy Ramin england [facility] Start: 11-28-2018 H/O: 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 [facility] Plan of Treatment Date Care Activity Detail Author Start: 03-14-2029 Colonoscopy COLONOSCOPY [facility] Start: 03-14-2029 COLORECTAL CANCER SCREENING COLORECTAL CANCER SCREENING [facility] Start: 03-14-2029 Screening for malignant neoplasm of colon [facility] Start: 04-24-2027 Urine microalbumin profile [facility] Start: 12-14-2023 End: 01-12-2024 Mri abdomen w/o & w/contrast material MRI PANC/ZAYRA WO/W IVCON Radiology Routine IPMN (intraductal papillary mucinous neoplasm) Expected: 12/14/2023, Expires: 01/12/2024 [facility] Work Phone: Immunizations Immunization Date Immunization Notes Care Provider Fa josie 01-23-2022 influenza virus vacc ine, unspecified formulation Ramin [facility] 02-25-2021 influenza, high dose seasonal, preservative-free Ramin [facility] 11-08-2020 COVID-19 vaccine, ag e 12+ yr (PFIZER-BIONTRebtel - PURPLE TOP) Ramin [facility] Work Phone: 01-13-2020 influenza, high-dose , quadrivalent vaccine (FLUZONE HIGH DOSE QUADRIVALENT) [facility] 04-24-2019 influenza, injectabl e, quadrivalent, contains preservative [facility] 04-25-2018 influenza, injectabl e, quadrivalent, contains preservative [facility] 04-23-2017 tetanus and diphther ia toxoids, adsorbed, preservative free, for adult use (5 Lf of tetanus toxoid and 2 Lf of diphtheria toxoid) [facility] 01-31-2017 influenza, injectabl e, quadrivalent, contains preservative [facility] 04-07-2016 influenza, injectabl e, quadrivalent, contains preservative [facility] 04-05-2015 influenza, injectabl e, quadrivalent, contains preservative [facility] 03-30-2014 influenza, seasonal, injectable [facility] 03-27-2013 influenza virus vacc ine, unspecified formulation [facility] 03-25-2012 influenza virus vacc ine, unspecified formulation [facility] 11-24-2010 pneumococcal polysaccharide vaccine, 23 valent [facility] 02-19-2006 tetanus and diphther ia toxoids, adsorbed, preservative free, for adult use (2 Lf of tetanus toxoid and 2 Lf of diphtheria toxoid) [facility] Work Phone: Payers Date Payer Category Payer Medicare UHC AARP MEDICAR E UHC AARP MEDICARE PPO [id number] 2020-Present [phone] [address] [address] [place] [address] PPO [id number] 2020 Medicare UHC AARP MEDICAR E UHC AARP MEDICARE PPO [id number] 2020-Present [phone] [address] [address] [place] [address] PPO [id number] 2020 Medicare [id number] 1955 Unknown [id number] 1955 Unknown [id number] 1954 Unknown [id number] 1955 Unknown [id number] Medicare [id number] Unknown [id number] Social History Date Type Detail Facility Start: 05-05-2019 Tobacco smoking status NHIS Ex-smoker [facility] Start: 05-05-2019 Tobacco use and exposure Smokeless tobacco non-user [facility] Start: 06-10-2021 End: 12-13-2022 Alcohol intake Current drinker of alcohol (finding) [facility] Start: 11-12-2020 End: 06-10-2021 History SDOH Alcohol Frequency 2 [facility] Start: 11-12-2020 End: 06-10-2021 History SDOH Alcohol Std Drinks 1 [facility] Start: 04-05-2015 History SDOH Alcohol Comment rarely [facility] Start: 11-12-2020 History SDOH Social Connections Phone 5 [facility] Start: 11-12-2020 History SDOH Social Connections [facility] 3 [facility] Start: 11-12-2020 Education 15 [facility] Start: 05-05-2019 Tobacco Comment Quit @ age 19 [facility] Start: 1955 Sex Assigned At Female [facility] Start: 05-10-2021 End: 11-29-2021 Exposure to SARS-CoV-2 (event) Not sure [facility] Start: 09-03-2021 End: 09-13-2021 Exposure to SARS-CoV-2 (event) Unable to assess [facility] History of tobacco use Current smoker [facility] Start: 04-25-2022 End: 12-13-2022 History of Social function [facility] Work Phone: Start: 04-25-2022 End: 12-13-2022 Area Deprivation Index [facility] Work Phone: National Score (1-10 0), lower number is lower risk 47 [facility] Work Phone: Start: 04-30-2020 Gender identity Identifies as female gender (finding) [facility] Start: 04-30-2020 Sexual orientation Heterosexual (finding) [facility] Do you belong to any clubs or organizations such as congregational groups, unions, fraSidelines or athletic groups, or school groups? Yes [facility] Work Phone: Are you now , , , , never or living with a partner? [facility] Work Phone: How often to you hav e a drink containing alcohol? Monthly or less [facility] Work Phone: How many standard dr inks containing alcohol do you have on a typical day? 1 or 2 [facility] Work Phone: How often do you hav e 6 or more drinks on 1 occasion? Never [facility] Work Phone: Do you feel stress - tense, restless, nervous, or anxious, or unable to sleep at night because your mind is troubled all the time - these days [OSQ] Only a little [facility] Work Phone: (I/We) worried wheth er (my/our) food would run out before (I/we) got money to buy more. Never true [facility] Work Phone: In the past 12 month s, was there a time when you were not able to pay the mortgage or rent on time? No [facility] Medical Equipment Procedure Code Equipment Code Equipment Origin al Text Equipment Identifier Dates Cable Lcp 1.7mm Stainless Steel 750mm Orthopedic Crimp Cerclage Sterile - [id number] Start: 10-28-2019 Graft Dbx Bone V oid Allograft Freeze Dried Putty 5ml - [id number] Start: 10-28-2019 Humeral Stem, Sm all Shell 12 X 108 Mm [id number] Start: 09-06-2018 Small Socket Ins ert 32 Mm Neutral +4 [id number] Start: 09-06-2018 Head Rsp 32mm -4 mm Offset Glenoid Retain Screw - [id number] Start: 09-06-2018 Pin Lcp 4.5mm Stainless Steel Positioning Cerclage Threaded Sterile - [id number] Start: 10-28-2019 Baseplate Rsp P2 30mm Glenoid Sterile - [id number] Start: 09-06-2018 Plate Lcp Narrow Stainless Steel 152x13.5x4.2mm Bone 8 Hole Limit Contact - [id number] Start: 10-28-2019 Screw Rsp 5mm 26 mm Bone Lock Glenoid Baseplate Shoulder - [id number] Start: 09-06-2018 Screw Rsp 5mm 18 mm Bone Lock Glenoid Baseplate Shoulder - [id number] Start: 09-06-2018 Screw Rsp 5mm 30 mm Bone Lock Glenoid Baseplate Shoulder - [id number] Start: 09-06-2018 Screw Rsp 5mm 34 mm Bone Lock Glenoid Baseplate Shoulder - [id number] Start: 09-06-2018 Screw Lcp 4.5mm 8mm Stainless Steel 30mm Bone Self Tapping Large Hexagonal - [id number] Start: 10-28-2019 Screw Lcp 4.5mm 8mm Stainless Steel 36mm Bone Self Tapping Large Hexagonal - [id number] Start: 10-28-2019 Screw Lcp 4.5mm Stainless Steel 28mm Bone Self Tapping Pediatric Large - [id number] Start: 10-28-2019 Screw Lcp 5mm Fu ll Thread T25 Stainless Steel 14mm Bone Lock Self Tap Tip - [id number] Start: 10-28-2019 Screw Lcp 5mm 4. 4mm T25 Blunt Cone Stainless Steel 12mm Bone Self Tap - [id number] Start: 10-28-2019 Start: 06-14-2021 End: 12-11-2021 Clinical Notes 09-06-2018 to 03-28-2023 Telephone Encounter - Barney Garcia RPh - 03/28/2023 12:15 PM ESTTelephone Encounter - Mimi [email or web address] Ernst - 03/28/2023 11:56 AM Yohana Denise MD - 12/13/2022 4:54 PM EDT Note Date & Type Note Facility 03-28-2023 Miscellaneous Notes The following approved medication requests have been transmitted electronically. Requested Prescriptions Signed Prescriptions Disp Refills warfarin (COUMADIN) 5 mg tablet 90 tablet 3 Sig: Take 5mg (1 tab) by mouth daily or as directed by [facility] Authorizing Provider: BG BEVERLY Ordering User: BARNEY GARCIA RPh PATIENT CALL Patient called call center regarding refill Patient requested a medication refill. Patient's pharmacy is [facility]. Refill Medication: warfarin 5 mg tablet(s) Refill request sent to pharmacist Yes PT INR (no units) Date Value 03/03/2022 1.5 biotel 02/03/2022 3.7 07/06/2021 2.4 (biotel) INR Home CoaguChek (no units) Date Value 03/22/2023 3.0 03/08/2023 4.9 02/19/2023 2.4 Kofi Le ([email or web address]) documented in this encounter [facility] 03-22-2023 Miscellaneous Notes [facility] Ambulatory Pharm[facility] Anticoagulation Clinic Anticoagulation Episode Summary Anticoagulation Care Providers Provider Role Specialty Phone number Bg Beverly MD Referring Family Medicine [phone] Ashley Pabon is a 67 year old year old female patient being evaluated today for a Telemanagement visit. Patient is currently on the following anticoagulant(s) Warfarin. Labs PT INR (no units) Date Value 03/03/2022 1.5 biotel 02/03/2022 3.7 07/06/2021 2.4 (biotel) INR Home CoaguChek (no units) Date Value 03/22/2023 3.0 03/08/2023 4.9 02/19/2023 2.4 Hemoglobin (g/dL) Date Value 11/26/2020 12.8 Hematocrit (%) Date Value 11/26/2020 42.2 Platelet Count (k/uL) Date Value 11/26/2020 352 Creatinine (mg/dL) Date Value 06/10/2021 0.83 04/27/2021 0.84 11/26/2020 0.89 09/13/2020 0.89 Bilirubin, Total (mg/dL) Date Value 06/10/2021 0.2 04/27/2021 0.4 ALT (U/L) Date Value 06/10/2021 23 04/27/2021 16 AST (U/L) Date Value 06/10/2021 23 04/27/2021 22 CrCl cannot be calculated (Patient's most recent lab result is older than the maximum 180 days allowed.). 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 Patient denies need for refills. Katie Ott RPh Clinical Pharmacist, Pharmacy Anticoagulation Clinic Pharmacy [facility] Pager: [phone]. documented in this encounter [facility] 03-08-2023 Miscellaneous Notes [facility]ulatory [facility] Anticoagulation Clinic Anticoagulation Episode Summary Anticoagulation Care Providers Provider Role Specialty Phone number Bg Beverly MD Referring Family Medicine [phone] Ashley Pabon is a 67 year old year old female patient being evaluated today for a Telemanagement visit. Patient is currently on the following anticoagulant(s) Warfarin. Labs PT INR (no units) Date Value 03/03/2022 1.5 biotel 02/03/2022 3.7 07/06/2021 2.4 (biotel) INR Home CoaguChek (no units) Date Value 03/08/2023 4.9 02/19/2023 2.4 02/08/2023 1.9 Hemoglobin (g/dL) Date Value 11/26/2020 12.8 Hematocrit (%) Date Value 11/26/2020 42.2 Platelet Count (k/uL) Date Value 11/26/2020 352 Creatinine (mg/dL) Date Value 06/10/2021 0.83 04/27/2021 0.84 11/26/2020 0.89 09/13/2020 0.89 Bilirubin, Total (mg/dL) Date Value 06/10/2021 0.2 04/27/2021 0.4 ALT (U/L) Date Value 06/10/2021 23 04/27/2021 16 AST (U/L) Date Value 06/10/2021 23 04/27/2021 22 CrCl cannot be calculated (Patient's most recent lab result is older than the maximum 180 days allowed.). 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 Patient denies need for refills. Katie Ott RPh Clinical Pharmacist, Pharmacy Anticoagulation Clinic Pharmacy Anticoagulation Clinic Pager: [phone]. documented in this encounter [facility] 02-19-2023 Miscellaneous Notes [facility] Ambulatory Pharmacy Anticoagulation Clinic Anticoagulation Episode Summary Anticoagulation Care Providers Provider Role Specialty Phone number Bg Beverly MD Referring Family Medicine [phone] Ashley Pabon is a 67 year old year old female patient being evaluated today for a Telemanagement visit. Patient is currently on the following anticoagulant(s) Warfarin. Labs PT INR (no units) Date Value 03/03/2022 1.5 biotel 02/03/2022 3.7 07/06/2021 2.4 (biotel) INR Home CoaguChek (no units) Date Value 02/19/2023 2.4 02/08/2023 1.9 02/01/2023 1.6 CrCl cannot be calculated (Patient's most recent lab result is older than the maximum 180 days allowed.). ALLERGIES Allergen Reactions Alesse-21 [Estrogen* Shortness of Breath Aspartame Other: See Comments headache Celebrex [Celecoxib] Rash Erythromycin [Eryth* Diarrhea Lisinopril Cough Nsaids (Non-Steroid* Unknown Due to bypass surgery Penicillins Diarrhea Sulfa (Sulfonamide * Rash Indication for Warfarin: Anticoagulation Episode Summary Current INR goal: 2.0-3.0 Assessment: INR result of 2.4 is therapeutic Plan: Current Warfarin Dosing As of 02/19/2023 Full warfarin instructions: 2.5 mg every Tue; 5 mg all other days Left voice message Advised patient to continue current weekly dose as noted above Next INR check due on 03/05/2023 Patient instructed to call [facility] at [phone] with any questions or concerns. Min Wells RPh Clinical Pharmacist, Pharmacy Anticoagulation Clinic [facility] Pager: [phone] documented in this encounter [facility] 02-12-2023 Note HNO ID: [id number] Author: Amanda Peralta Service: ? Author Type: ? Type: Progress Notes Filed: 02/12/2023 2:05 PM Note Text: POPULATION HEALTH NAVIGATION OUTREACH Action/FYI Updated PCP field per care everywhere documents. Patient Identified by Name and : NO Outreach Outcome/Action PCP field updated Did you use a PCP flex slot to schedule this appointment? N/A Reason for Outreach HCC or suspected condition Amanda Cerrato Population Health Navigjames February 12, 2023 2:04 PM [facility] 02-12-2023 History of Present illness Narrative POPULATION HEALTH NAVIGATION OUTREACH Action/FYI Updated PCP field per care everywhere documents. Patient Identified by Name and : NO Outreach Outcome/Action PCP field updated Did you use a PCP flex slot to schedule this appointment? N/A Reason for Outreach HCC or suspected condition Amanda Cerrato Population Health Magdalena February 12, 2023 2:04 PM documented in this encounter [facility] 02-12-2023 Note Patient Outreach (NE TNAV) ASHLEY PABON ([id number]) 1955 F Date Time Provider Department 02/12/23 AMANDA CERRATO During your visit today, we recorded the following information about you: Amanda Peralta 02/12/2023 2:05 PM Signed POPULATION HEALTH NAVIGATION OUTREACH Action/FYI Updated PCP field per care everywhere documents. Patient Identified by Name and : NO Outreach Outcome/Action PCP field updated Did you use a PCP flex slot to schedule this appointment? N/A Reason for Outreach HCC or suspected condition Amanda Cerrato Population Health Navigator February 12, 2023 2:04 PM Allergies As of Date: 02/12/2023 Noted Allergy Reaction ALESSE-21 (ESTROGENS) 05/16/2004 12 - Shortness of Breath ASPARTAME 03/28/2006 14 - Other: See Comments Comments: headache CELEBREX (CELECOXIB) 05/16/2004 2 - Rash ERYTHROMYCIN (ERYTHROMYCIN BASE) 05/16/2004 6 - Diarrhea LISINOPRIL 01/09/2008 3 - Cough NSAIDS (NON-STEROIDAL ANTI-INFLAM*02/09/2009 16 - Unknown Comments: Due to bypass surgery PENICILLINS 05/16/2004 6 - Diarrhea SULFA (SULFONAMIDE ANTIBIOTICS) 05/16/2004 2 - Rash Date Reviewed: 12/13/2022 Reviewed by: Yohana Collazo MD - Fully Assessed Reason for Visit: Population Health Navigation Outreach [3910] Cmt: HCC Prescriptions as of 02/20/2023 - iv contrast (will be provided with radiology test) MRI PANC/ZAYRA Inject, intravenously, once for 1 dose. No IV access, insert saline lock prior to the beginning of sedation, infusion, injection of imaging exam. Discontinue saline lock post exam. If Pt. has a central line or IVAD, may access for administration according to line specific nursing protocol. Once exam is complete flush line and de-access according to line specific nursing protocol in the MR contrast administration guidelines link. - warfarin (COUMADIN) 5 mg tablet Take 5mg (1 tab) by mouth daily or as directed by Coumadin Clinic - Lancets lancets Test blood sugar(s) 1 times daily. Dx: Type 2 DM - Controlled E11.9 Insulin: No - traMADol (ULTRAM) 50 mg tablet Take 1 tablet by mouth twice daily as needed. - levothyroxine (SYNTHROID) 100 mcg tablet Take 1 tablet by mouth once daily. Take on empty stomach - allopurinol (ZYLOPRIM) 100 mg tablet Take 2 tablets by mouth once daily. - OXYGEN, HOME THERAPY, Inhale as instructed as directed. 2L PM - diphenhyd/phenyleph/acetaminop (TYLENOL ALLERGY M-S NIGHTTIME ORAL) Take by mouth. - cyanocobalamin (VITAMIN B-12) 100 mcg tab Take 100 mcg by mouth once daily. - biotin 1 mg cap Take by mouth once daily. - Cholecalciferol, Vitamin D3, (VITAMIN D-3) 50 mcg (2,000 unit) cap Take 1 capsule by mouth once daily. - ferrous sulfate (IRON ORAL) Take by mouth once daily. Problem List As Of Date 02/12/2023 Noted Resolved PMH - PAST MEDICAL HISTORY OF 01/09/2020 ESOPHAGEAL REFLUX [K21.9] PULM EMBOLISM/INFARCT NOS [I26.99] 12/26/2004 04/14/2013 Hypothyroidism [E03.9] 02/16/2005 BENIGN HYPERTENSION [I10] 07/07/2005 Arthritis of shoulder [M19.019] 02/19/2006 GOUT NOS [M10.9] 02/19/2006 Screening for malignant neoplasm of the cervix *03/30/2006 04/14/2013 DYSMETABOLIC SYNDROME X [E88.810] 04/04/2006 BENIGN NEOPLASM LG BOWEL [D12.6] 08/03/2006 History of cancer of uterus [Z85.42] 09/14/2006 Renal calculus, right [N20.0] 02/24/2010 Right flank pain [R10.9] 02/24/2010 04/14/2013 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] 03/17/2010 Primary localized osteoarthrosis, lower leg [M1*12/27/2010 Right bundle branch block [I45.10] 08/14/2011 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] 03/25/2012 Rosacea [L71.9] 03/25/2012 Factor 5 Leiden mutation, heterozygous [D68.51] 02/18/2013 Kidney stones [N20.0] 02/27/2013 History of pulmonary embolus (PE) [Z86.711] 03/18/2013 Osteoarthritis [M19.90] 03/27/2013 01/09/2020 Fracture of humerus, proximal, left, closed [S4*10/15/2013 01/31/2017 History of gastric bypass [Z98.84] 03/16/2014 Hyperlipidemia LDL goal <100 [E78.5] 04/05/2015 Controlled type 2 diabetes mellitus without com*04/05/2015 DDD (degenerative disc disease), lumbar [M51.36]04/05/2015 Osteoarthritis of spine with radiculopathy, cer*04/05/2015 Insomnia [G47.00] 04/05/2015 Cyst and pseudocyst of pancreas [K86.2, K86.3] 04/04/2016 Anemia [D64.9] 01/31/2017 04/25/2018 Vitamin D deficiency [E55.9] 04/23/2017 04/25/2018 Hyperparathyroidism due to vitamin D deficiency*04/23/2017 04/25/2018 Pulmonary embolism on long-term anticoagulation*04/25/2017 01/09/2020 Morbid obesity with body mass index (BMI) of 40*08/22/2017 Chronic midline low back pain without sciatica *09/26/2017 Acute pain of right shoulder [M25.511] 09/26/2017 01/09/2020 Anxiety and depression [F41.9, F32.A] 04/25/2018 Rotator cuff tear arthropathy, right [M75.101, *08/01/2018 01/09/2020 On bridging treatment with lovenox (more content not included)... [facility] 02-01-2023 Miscellaneous Notes [facility] Ambulatory Pharmacy Anticoagulation Clinic Anticoagulation Episode Summary Anticoagulation Care Providers Provider Role Specialty Phone number Bg Beverly MD Referring Family Medicine [phone] Ashley Pabon is a 67 year old year old female patient being evaluated today for a Telemanagement visit. Patient is currently on the following anticoagulant(s) Warfarin. Labs PT INR (no units) Date Value 03/03/2022 1.5 biotel 02/03/2022 3.7 07/06/2021 2.4 (biotel) INR Home CoaguChek (no units) Date Value 02/01/2023 1.6 01/05/2023 3.2 12/20/2022 2.7 Hemoglobin (g/dL) Date Value 11/26/2020 12.8 Hematocrit (%) Date Value 11/26/2020 42.2 Platelet Count (k/uL) Date Value 11/26/2020 352 Creatinine (mg/dL) Date Value 06/10/2021 0.83 04/27/2021 0.84 11/26/2020 0.89 09/13/2020 0.89 Bilirubin, Total (mg/dL) Date Value 06/10/2021 0.2 04/27/2021 0.4 ALT (U/L) Date Value 06/10/2021 23 04/27/2021 16 AST (U/L) Date Value 06/10/2021 23 04/27/2021 22 CrCl cannot be calculated (Patient's most recent lab result is older than the maximum 180 days allowed.). ALLERGIES Allergen Reactions Alesse-21 [Estrogen* Shortness of Breath Aspartame Other: See Comments headache Celebrex [Celecoxib] Rash Erythromycin [Eryth* Diarrhea Lisinopril Cough Nsaids (Non-Steroid* Unknown Due to bypass surgery Penicillins Diarrhea Sulfa (Sulfonamide * Rash Indication for Warfarin: Anticoagulation Episode Summary Current INR goal: 2.0-3.0 Assessment: INR result of 1.6 is SUBtherapeutic due to: Increased vitamin k intake Plan: Current Warfarin Dosing As of 02/01/2023 Full warfarin instructions: 02/01: 7.5 mg; Otherwise 2.5 mg every e, Sun; 5 mg all other days Called and spoke to patient/caregiver Advised patient to increase dose for 1 day only then resume weekly regimen Next home INR check scheduled on 02/08/2023 Patient verbalizes understanding of the plan. Patient denies need for refills. Adriane Rivera RPh Clinical Pharmacist, Pharmacy Anticoagulation Clinic Pharmacy Anticoagulation Clinic Pager: [phone]. documented in this encounter [facility] 01-19-2023 Miscellaneous Notes Patient due to test INR today. Will continue to monitor for results. Zenobia Robertson RPh documented in this encounter [facility] 01-05-2023 Miscellaneous Notes [facility] Pharm[facility] Anticoagulation Clinic Anticoagulation Episode Summary Anticoagulation Care Providers Provider Role Specialty Phone number Bg Beverly MD Referring Family Medicine [phone] Ashley Pabon is a 67 year old year old female patient being evaluated today for a Telemanagement visit. Patient is currently on the following anticoagulant(s) Warfarin. Labs PT INR (no units) Date Value 03/03/2022 1.5 biotel 02/03/2022 3.7 07/06/2021 2.4 (biotel) INR Home CoaguChek (no units) Date Value 01/05/2023 3.2 12/20/2022 2.7 12/11/2022 4.8 Hemoglobin (g/dL) Date Value 11/26/2020 12.8 Hematocrit (%) Date Value 11/26/2020 42.2 Platelet Count (k/uL) Date Value 11/26/2020 352 Creatinine (mg/dL) Date Value 06/10/2021 0.83 04/27/2021 0.84 11/26/2020 0.89 09/13/2020 0.89 Bilirubin, Total (mg/dL) Date Value 06/10/2021 0.2 04/27/2021 0.4 ALT (U/L) Date Value 06/10/2021 23 04/27/2021 16 AST (U/L) Date Value 06/10/2021 23 04/27/2021 22 CrCl cannot be calculated (Patient's most recent lab result is older than the maximum 180 days allowed.). 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 Patient denies need for refills. Zenobia Robertson RPh Clinical Pharmacist, Pharmacy Anticoagulation Clinic Pharmacy Anticoagulation Clinic Pager: [phone]. documented in this encounter [facility] 12-20-2022 Miscellaneous Notes [facility] Anticoagulation Clinic Anticoagulation Episode Summary Anticoagulation Care Providers Provider Role Specialty Phone number Bg Beverly MD Referring Family Medicine [phone] Ashley Pabon is a 67 year old year old female patient being evaluated today for a Telemanagement visit. Patient is currently on the following anticoagulant(s) Warfarin. Labs PT INR (no units) Date Value 03/03/2022 1.5 biotel 02/03/2022 3.7 07/06/2021 2.4 (biotel) INR Home CoaguChek (no units) Date Value 12/20/2022 2.7 12/11/2022 4.8 11/27/2022 2.3 Hemoglobin (g/dL) Date Value 11/26/2020 12.8 Hematocrit (%) Date Value 11/26/2020 42.2 Platelet Count (k/uL) Date Value 11/26/2020 352 Creatinine (mg/dL) Date Value 06/10/2021 0.83 04/27/2021 0.84 11/26/2020 0.89 09/13/2020 0.89 Bilirubin, Total (mg/dL) Date Value 06/10/2021 0.2 04/27/2021 0.4 ALT (U/L) Date Value 06/10/2021 23 04/27/2021 16 AST (U/L) Date Value 06/10/2021 23 04/27/2021 22 CrCl cannot be calculated (Patient's most recent lab result is older than the maximum 180 days allowed.). ALLERGIES Allergen Reactions Alesse-21 [Estrogen* Shortness of Breath Aspartame Other: See Comments headache Celebrex [Celecoxib] Rash Erythromycin [Eryth* Diarrhea Lisinopril Cough Nsaids (Non-Steroid* Unknown Due to bypass surgery Penicillins Diarrhea Sulfa (Sulfonamide * Rash Indication for Warfarin: Anticoagulation Episode Summary Current INR goal: 2.0-3.0 Assessment: INR result of 2.7 is therapeutic following recent dose decrease. She said she hasn't restarted shakes with vitamin K. She didn't restart the hemp gummies that she started in early- also. Plan: Current Warfarin Dosing As of 12/12/2022 Full warfarin instructions: 2.5 mg every Tue, Fri; 5 mg all other days Called and spoke to patient/caregiver Advised patient to continue current weekly dose as noted above Next home INR check scheduled on Patient verbalizes understanding of the plan. Patient denies need for refills. Ramin Dorsey RPh Clinical Pharmacist, Pharmacy Anticoagulation Clinic Pharmacy Anticoagulation Clinic Pager: [phone]. documented in this encounter [facility] 12-13-2022 Note HNO ID: [id number] Author: Yohana Collazo MD Service: ? Author Type: Physician Type: Progress Notes Filed: 12/13/2022 8:50 PM Note Text: Yohana Collazo M.D. Surgical Oncology [address] [facility], [address] [place] [address] TELEPHONE VISIT NOTE SUBJECTIVE Ashley Pabon is a 67 year old female presenting for the follow-up of an IPMN Patient was last seen in clinic approximately 1 year ago. She has stable biliary and pancreatic ductal dilation with multiple small pancreatic cysts. She underwent her annual MRI surveillance and presents today to discuss these results. She reports no significant changes to her medical history since her last visit and no new or worsening symptoms. The ROS, medical, surgical, family, and social history were reviewed by Yohana Collazo MD Plan 67-year-old woman with IPMN. I reviewed patient's MRI personally and the report. Advised patient that there does not appear to be any significant changes to her pancreatic findings. Given her stable disease at this time over several years I would recommend continuing with annual surveillance. Answered all of her questions to her satisfaction and she was agreeable to this plan. Total time of telephone encounter: 15 minutes Yohana Collazo MD 12/13/2022 4:57 PM [facility] 12-13-2022 History of Present illness Narrative Images from the original note were not included. Yohana Collazo M.D. Surgical Oncology [address] [facility], [address] [place] [address] TELEPHONE VISIT NOTE SUBJECTIVE Ashley Pabon is a 67 year old female presenting for the follow-up of an IPMN Patient was last seen in clinic approximately 1 year ago. She has stable biliary and pancreatic ductal dilation with multiple small pancreatic cysts. She underwent her annual MRI surveillance and presents today to discuss these results. She reports no significant changes to her medical history since her last visit and no new or worsening symptoms. The ROS, medical, surgical, family, and social history were reviewed by Yohana Collazo MD Plan 67-year-old woman with IPMN. I reviewed patient's MRI personally and the report. Advised patient that there does not appear to be any significant changes to her pancreatic findings. Given her stable disease at this time over several years I would recommend continuing with annual surveillance. Answered all of her questions to her satisfaction and she was agreeable to this plan. Total time of telephone encounter: 15 minutes Yohana Collazo MD 12/13/2022 4:57 PM documented in this encounter [facility] 12-12-2022 Miscellaneous Notes [facility]ulatory Pharmacy Anticoagulation Clinic Anticoagulation Episode Summary Anticoagulation Care Providers Provider Role Specialty Phone number Bg Beverly MD Referring Family Medicine [phone] Ashley Pabon is a 67 year old year old female patient being evaluated today for a Telemanagement visit. Patient is currently on the following anticoagulant(s) Warfarin. Labs PT INR (no units) Date Value 03/03/2022 1.5 biotel 02/03/2022 3.7 07/06/2021 2.4 (biotel) INR Home CoaguChek (no units) Date Value 12/11/2022 4.8 11/27/2022 2.3 11/22/2022 6.4 Hemoglobin (g/dL) Date Value 11/26/2020 12.8 Hematocrit (%) Date Value 11/26/2020 42.2 Platelet Count (k/uL) Date Value 11/26/2020 352 Creatinine (mg/dL) Date Value 06/10/2021 0.83 04/27/2021 0.84 11/26/2020 0.89 09/13/2020 0.89 Bilirubin, Total (mg/dL) Date Value 06/10/2021 0.2 04/27/2021 0.4 ALT (U/L) Date Value 06/10/2021 23 04/27/2021 16 AST (U/L) Date Value 06/10/2021 23 04/27/2021 22 CrCl cannot be calculated (Patient's most recent lab result is older than the maximum 180 days allowed.). ALLERGIES Allergen Reactions Alesse-21 [Estrogen* Shortness of Breath Aspartame Other: See Comments headache Celebrex [Celecoxib] Rash Erythromycin [Eryth* Diarrhea Lisinopril Cough Nsaids (Non-Steroid* Unknown Due to bypass surgery Penicillins Diarrhea Sulfa (Sulfonamide * Rash Indication for Warfarin: Anticoagulation Episode Summary Current INR goal: 2.0-3.0 Assessment: INR result of 4.8 is SUPRAtherapeutic due to: Decreased vitamin k intake Protein shakes she has now do not contain vit K Plan: Current Warfarin Dosing As of 12/12/2022 Full warfarin instructions: 2.5 mg every Tue, Fri; 5 mg all other days Called and spoke to patient/caregiver Advised patient to hold 1 dose then decrease current regimen Next home INR check scheduled on 12/21/2022 Patient verbalizes understanding of the plan. Jelena Cobb RPh Clinical Pharmacist, Pharmacy Anticoagulation Clinic Pharmacy Anticoagulation Clinic Pager: [phone]. Patient returned the call and can be reached at [phone]. Linsey Cartagena RN Pharmacy Anticoagulation Clinic The patient was called to discuss recent INR test results. A voice message was left on patient's Home telephone voice mail. The patient was advised to call the Coumadin Clinic at [phone] and hold x1 (12/12). PT INR (no units) Date Value 03/03/2022 1.5 biotel 02/03/2022 3.7 07/06/2021 2.4 (biotel) INR Home CoaguChek (no units) Date Value 12/11/2022 4.8 11/27/2022 2.3 11/22/2022 6.4 Jelena Cobb, PharmD,CACP documented in this encounter [facility] 12-06-2022 Note HNO ID: [id number] Author: Megan Romero RT(Kanwal) Service: ? Author Type: Technologist Type: Progress Notes Filed: 12/06/2022 9:16 AM Note Text: Radiology Service Progress Note DATE OF SERVICE: December 06, 2022 TIME: 9:16 AM PATIENT IDENTITY VERIFICATION COMPLETED USING TWO (2) STANDARD IDENTIFIERS: Name and Date of confirmed by patient verbally. FALL SCREENING: Has the patient had 2 falls in the last year or 1 fall with injury or currently using an Ambulatory Assistive Device (Walker, Cane, Wheelchair, Crutches, etc.)? No PATIENT GENDER DATA: Female. status: : No status: NO. PATIENT RELEVANT IMPLANT DATA REVIEWED: Yes ALLERGIES: Reviewed and unchanged CONTRAST ALLERGY: NO. EXAM: MRI - CONTRAST TYPE: GROUP II PERIPHERAL IV DATA: Ambulatory: A peripheral IV was started in the Left antecubital site with a Angio cath: 22 gauge. RADIOLOGY DEPARTMENT: MR; Exam(s) Completed: Body: Pancreas/Biliary SIGNATURE: RT Glenda(R) PATIENT NAME: Ashley Pabon DATE: December 06, 2022 TIME: 9:16 AM [facility] 12-06-2022 History of Present illness Narrative Radiology Service Progress Note DATE OF SERVICE: December 06, 2022 TIME: 9:16 AM PATIENT IDENTITY VERIFICATION COMPLETED USING TWO (2) STANDARD IDENTIFIERS: Name and Date of confirmed by patient verbally. FALL SCREENING: Has the patient had 2 falls in the last year or 1 fall with injury or currently using an Ambulatory Assistive Device (Walker, Cane, Wheelchair, Crutches, etc.)? No PATIENT GENDER DATA: Female. status: : No status: NO. PATIENT RELEVANT IMPLANT DATA REVIEWED: Yes ALLERGIES: Reviewed and unchanged CONTRAST ALLERGY: NO. EXAM: MRI - CONTRAST TYPE: GROUP II PERIPHERAL IV DATA: Ambulatory: A peripheral IV was started in the Left antecubital site with a Angio cath: 22 gauge. RADIOLOGY DEPARTMENT: MR; Exam(s) Completed: Body: Pancreas/Biliary SIGNATURE: RT Glenda(R) PATIENT NAME: Ashley Pabon DATE: December 06, 2022 TIME: 9:16 AM documented in this encounter [facility] 11-27-2022 Miscellaneous Notes [facility] Ambulatory Pharmacy Anticoagulation Clinic Anticoagulation Episode Summary Anticoagulation Care Providers Provider Role Specialty Phone number Bg eBverly MD Referring Family Medicine [phone] Ashley Pabon is a 67 year old year old female patient being evaluated today for a Telemanagement visit. Patient is currently on the following anticoagulant(s) Warfarin. Labs PT INR (no units) Date Value 03/03/2022 1.5 biotel 02/03/2022 3.7 07/06/2021 2.4 (biotel) INR Home CoaguChek (no units) Date Value 11/27/2022 2.3 11/22/2022 6.4 10/27/2022 2.8 CrCl cannot be calculated (Patient's most recent lab result is older than the maximum 180 days allowed.). ALLERGIES Allergen Reactions Alesse-21 [Estrogen* Shortness of Breath Aspartame Other: See Comments headache Celebrex [Celecoxib] Rash Erythromycin [Eryth* Diarrhea Lisinopril Cough Nsaids (Non-Steroid* Unknown Due to bypass surgery Penicillins Diarrhea Sulfa (Sulfonamide * Rash Indication for Warfarin: Anticoagulation Episode Summary Current INR goal: 2.0-3.0 Assessment: INR result of 2.3 is therapeutic Plan: Current Warfarin Dosing As of 11/27/2022 Full warfarin instructions: 5 mg every day Left voice message Advised patient to continue current weekly dose as noted above Next INR check due on 12/12/2022 Patient instructed to call [facility] at [phone] with any questions or concerns. Min Wells RPh Clinical Pharmacist, Pharmacy Anticoagulation Clinic Pharmacy Anticoagulation Clinic Pager: [phone] documented in this encounter [facility] 11-22-2022 Miscellaneous Notes Kris's called regarding inr result from today. Result was addressed in 11/10/2022 encounter. No action needed. Kofi Le, Molding Fitter (treatment technician) Pharmacy Anticoagulation Clinic documented in this encounter [facility] 11-10-2022 Miscellaneous Notes Patient due to test INR today. Will continue to monitor for results. Zenobia Robertson RPh documented in this encounter [facility] 10-02-2022 Miscellaneous Notes [facility] Ambulatory Pharmacy Anticoagulation Clinic Anticoagulation Episode Summary Anticoagulation Care Providers Provider Role Specialty Phone number Bg Beverly MD Referring Family Medicine [phone] Ashley Pabon is a 67 year old year old female patient being evaluated today for a Telemanagement visit. Patient is currently on the following anticoagulant(s) Warfarin. Labs PT INR (no units) Date Value 03/03/2022 1.5 biotel 02/03/2022 3.7 07/06/2021 2.4 (biotel) INR Home CoaguChek (no units) Date Value 09/30/2022 3.2 09/13/2022 2.5 08/21/2022 3.1 CrCl cannot be calculated (Patient's most recent lab result is older than the maximum 180 days allowed.). ALLERGIES Allergen Reactions Alesse-21 [Estrogen* Shortness of Breath Aspartame Other: See Comments headache Celebrex [Celecoxib] Rash Erythromycin [Eryth* Diarrhea Lisinopril Cough Nsaids (Non-Steroid* Unknown Due to bypass surgery Penicillins Diarrhea Sulfa (Sulfonamide * Rash Indication for Warfarin: Anticoagulation Episode Summary Current INR goal: 2.0-3.0 Assessment: INR result of 3.2 is SUPRAtherapeutic due to: No obvious cause Plan: Current Warfarin Dosing As of 10/02/2022 Full warfarin instructions: 10/02: 2.5 mg; Otherwise 5 mg every day Called and spoke to patient/caregiver Advised patient to decrease dose for 1 day only then resume weekly regimen Next INR check due on 10/16/2022 Patient verbalizes understanding of the plan. Min Wells RPh Clinical Pharmacist, Pharmacy Anticoagulation Clinic Pharmacy Anticoagulation Clinic Pager: [phone]. documented in this encounter [facility] 09-13-2022 Miscellaneous Notes [facility] Ambulatory Pharmacy Anticoagulation Clinic Anticoagulation Episode Summary Anticoagulation Care Providers Provider Role Specialty Phone number Bg Beverly MD Referring Family Medicine [phone] Ashley Pabon is a 66 year old year old female patient being evaluated today for a Telemanagement visit. Patient is currently on the following anticoagulant(s) Warfarin. Labs PT INR (no units) Date Value 03/03/2022 1.5 biotel 02/03/2022 3.7 07/06/2021 2.4 (biotel) INR Home CoaguChek (no units) Date Value 09/13/2022 2.5 08/21/2022 3.1 08/01/2022 2.3 Hemoglobin (g/dL) Date Value 11/26/2020 12.8 Hematocrit (%) Date Value 11/26/2020 42.2 Platelet Count (k/uL) Date Value 11/26/2020 352 Creatinine (mg/dL) Date Value 06/10/2021 0.83 04/27/2021 0.84 11/26/2020 0.89 09/13/2020 0.89 Bilirubin, Total (mg/dL) Date Value 06/10/2021 0.2 04/27/2021 0.4 ALT (U/L) Date Value 06/10/2021 23 04/27/2021 16 AST (U/L) Date Value 06/10/2021 23 04/27/2021 22 CrCl cannot be calculated (Patient's most recent lab result is older than the maximum 180 days allowed.). ALLERGIES Allergen Reactions Alesse-21 [Estrogen* Shortness of Breath Aspartame Other: See Comments headache Celebrex [Celecoxib] Rash Erythromycin [Eryth* Diarrhea Lisinopril Cough Nsaids (Non-Steroid* Unknown Due to bypass surgery Penicillins Diarrhea Sulfa (Sulfonamide * Rash Indication for Warfarin: detention current use of anticoagulant History of pulmonary embolus (pe) Factor 5 leiden mutation, heterozygous (hcc) Anticoagulation Episode Summary Current INR goal: 2.0-3.0 Assessment: INR result of 2.5 is therapeutic Plan: Current Warfarin Dosing As of 09/12/2022 Full warfarin instructions: 5 mg every day Called and spoke to patient/caregiver Advised patient to continue current weekly dose as noted above She said she is drinking slim fast a couple times per week. Next home INR check scheduled on 09/27/2022 Patient verbalizes understanding of the plan. Patient denies need for refills. Ramin Dorsey RPh Clinical Pharmacist, Pharmacy Anticoagulation Clinic Pharmacy Anticoagulation Clinic Pager: [phone]. Ashley Pabon was called and reminded to test INR today or as soon as possible. Jelena Cobb RPh documented in this encounter [facility] 08-21-2022 Miscellaneous Notes [facility] Ambulatory Pharmacy Anticoagulation Clinic Anticoagulation Episode Summary Anticoagulation Care Providers Provider Role Specialty Phone number Bg Beverly MD Referring Family Medicine [phone] Ashley Pabon is a 66 year old year old female patient being evaluated today for a Telemanagement visit. Patient is currently on the following anticoagulant(s) Warfarin. Labs PT INR (no units) Date Value 03/03/2022 1.5 biotel 02/03/2022 3.7 07/06/2021 2.4 (biotel) INR Home CoaguChek (no units) Date Value 08/21/2022 3.1 08/01/2022 2.3 07/13/2022 2.7 CrCl cannot be calculated (Patient's most recent lab result is older than the maximum 180 days allowed.). ALLERGIES Allergen Reactions Alesse-21 [Estrogen* Shortness of Breath Aspartame Other: See Comments headache Celebrex [Celecoxib] Rash Erythromycin [Eryth* Diarrhea Lisinopril Cough Nsaids (Non-Steroid* Unknown Due to bypass surgery Penicillins Diarrhea Sulfa (Sulfonamide * Rash Indication for Warfarin: Anticoagulation Episode Summary Current INR goal: 2.0-3.0 Assessment: INR result of 3.1 is SUPRAtherapeutic due to: No obvious cause Plan: Current Warfarin Dosing As of 08/21/2022 Full warfarin instructions: 08/21: 2.5 mg; Otherwise 5 mg every day Called and spoke to patient/caregiver Advised patient to decrease dose for 1 day only then resume weekly regimen Next INR check due on 09/04/2022 Patient verbalizes understanding of the plan. Min Wells RPh Clinical Pharmacist, Pharmacy Anticoagulation Clinic Pharmacy Anticoagulation Clinic Pager: [phone]. documented in this encounter [facility] 08-01-2022 Miscellaneous Notes [facility] Ambulatory Pharmacy Anticoagulation Clinic Anticoagulation Episode Summary Anticoagulation Care Providers Provider Role Specialty Phone number Bg Beverly MD Referring Family Medicine [phone] Ashley Pabon is a 66 year old year old female patient being evaluated today for a Telemanagement visit. Patient is currently on the following anticoagulant(s) Warfarin. Labs PT INR (no units) Date Value 03/03/2022 1.5 biotel 02/03/2022 3.7 07/06/2021 2.4 (biotel) INR Home CoaguChek (no units) Date Value 08/01/2022 2.3 07/13/2022 2.7 06/29/2022 2.4 Hemoglobin (g/dL) Date Value 11/26/2020 12.8 Hematocrit (%) Date Value 11/26/2020 42.2 Platelet Count (k/uL) Date Value 11/26/2020 352 Creatinine (mg/dL) Date Value 06/10/2021 0.83 04/27/2021 0.84 11/26/2020 0.89 09/13/2020 0.89 Bilirubin, Total (mg/dL) Date Value 06/10/2021 0.2 04/27/2021 0.4 ALT (U/L) Date Value 06/10/2021 23 04/27/2021 16 AST (U/L) Date Value 06/10/2021 23 04/27/2021 22 CrCl cannot be calculated (Patient's most recent lab result is older than the maximum 180 days allowed.). ALLERGIES Allergen Reactions Alesse-21 [Estrogen* Shortness of Breath Aspartame Other: See Comments headache Celebrex [Celecoxib] Rash Erythromycin [Eryth* Diarrhea Lisinopril Cough Nsaids (Non-Steroid* Unknown Due to bypass surgery Penicillins Diarrhea Sulfa (Sulfonamide * Rash Indication for Warfarin: Anticoagulation Episode Summary Current INR goal: 2.0-3.0 Assessment: INR result of 2.3 is therapeutic Plan: Current Warfarin Dosing As of 08/01/2022 Full warfarin instructions: 5 mg every day Called and spoke to patient/caregiver Advised patient to continue current weekly dose as noted above Next home INR check scheduled on 08/15/2022 Patient verbalizes understanding of the plan. Jelena Cobb RPh Clinical Pharmacist, Pharmacy Anticoagulation Clinic Pharmacy Anticoagulation Clinic Pager: [phone]. documented in this encounter [facility] 07-13-2022 Miscellaneous Notes [facility] Ambulatory Pharmacy Anticoagulation Clinic Anticoagulation Episode Summary Anticoagulation Care Providers Provider Role Specialty Phone number Bg Beverly MD Referring Family Medicine [phone] Ashley Pabon is a 66 year old year old female patient being evaluated today for a Telemanagement visit. Patient is currently on the following anticoagulant(s) Warfarin. Labs PT INR (no units) Date Value 03/03/2022 1.5 biotel 02/03/2022 3.7 07/06/2021 2.4 (biotel) INR Home CoaguChek (no units) Date Value 07/13/2022 2.7 06/29/2022 2.4 06/20/2022 2.5 Hemoglobin (g/dL) Date Value 11/26/2020 12.8 Hematocrit (%) Date Value 11/26/2020 42.2 Platelet Count (k/uL) Date Value 11/26/2020 352 Creatinine (mg/dL) Date Value 06/10/2021 0.83 04/27/2021 0.84 11/26/2020 0.89 09/13/2020 0.89 Bilirubin, Total (mg/dL) Date Value 06/10/2021 0.2 04/27/2021 0.4 ALT (U/L) Date Value 06/10/2021 23 04/27/2021 16 AST (U/L) Date Value 06/10/2021 23 04/27/2021 22 CrCl cannot be calculated (Patient's most recent lab result is older than the maximum 180 days allowed.). ALLERGIES Allergen Reactions Alesse-21 [Estrogen* Shortness of Breath Aspartame Other: See Comments headache Celebrex [Celecoxib] Rash Erythromycin [Eryth* Diarrhea Lisinopril Cough Nsaids (Non-Steroid* Unknown Due to bypass surgery Penicillins Diarrhea Sulfa (Sulfonamide * Rash Indication for Warfarin: detention current use of anticoagulant History of pulmonary embolus (pe) Factor 5 leiden mutation, heterozygous (hcc) Anticoagulation Episode Summary Current INR goal: 2.0-3.0 Assessment: INR result of 2.7 is therapeutic Plan: Current Warfarin Dosing As of 07/13/2022 Full warfarin instructions: 2.5 mg every Sun; 5 mg all other days Left voice message Advised patient to continue current weekly dose as noted above Next home INR check scheduled on 07/27/2022 Katie Ott RPh Clinical Pharmacist, Pharmacy Anticoagulation Clinic Pharmacy Anticoagulation Clinic Pager: [phone]. documented in this encounter [facility] 06-29-2022 Miscellaneous Notes [facility] Ambulatory Pharmacy Anticoagulation Clinic Anticoagulation Episode Summary Anticoagulation Care Providers Provider Role Specialty Phone number Bg Beverly MD Referring Family Medicine [phone] Ashley Pabon is a 66 year old year old female patient being evaluated today for a Telemanagement visit. Patient is currently on the following anticoagulant(s) Warfarin. Labs PT INR (no units) Date Value 03/03/2022 1.5 biotel 02/03/2022 3.7 07/06/2021 2.4 (biotel) INR Home CoaguChek (no units) Date Value 06/29/2022 2.4 06/20/2022 2.5 06/13/2022 2.1 Hemoglobin (g/dL) Date Value 11/26/2020 12.8 Hematocrit (%) Date Value 11/26/2020 42.2 Platelet Count (k/uL) Date Value 11/26/2020 352 Creatinine (mg/dL) Date Value 06/10/2021 0.83 04/27/2021 0.84 11/26/2020 0.89 09/13/2020 0.89 Bilirubin, Total (mg/dL) Date Value 06/10/2021 0.2 04/27/2021 0.4 ALT (U/L) Date Value 06/10/2021 23 04/27/2021 16 AST (U/L) Date Value 06/10/2021 23 04/27/2021 22 CrCl cannot be calculated (Patient's most recent lab result is older than the maximum 180 days allowed.). ALLERGIES Allergen Reactions Alesse-21 [Estrogen* Shortness of Breath Aspartame Other: See Comments headache Celebrex [Celecoxib] Rash Erythromycin [Eryth* Diarrhea Lisinopril Cough Nsaids (Non-Steroid* Unknown Due to bypass surgery Penicillins Diarrhea Sulfa (Sulfonamide * Rash Indication for Warfarin: detention current use of anticoagulant History of pulmonary embolus (pe) Factor 5 leiden mutation, heterozygous (hcc) Anticoagulation Episode Summary Current INR goal: 2.0-3.0 Assessment: INR result of 2.4 is therapeutic Plan: Current Warfarin Dosing As of 06/29/2022 Full warfarin instructions: 2.5 mg every Wed; 5 mg all other days Left voice message Advised patient to continue current weekly dose as noted above Next home INR check scheduled on 07/13/2022 Katie Ott [facility] Clinical Pharmacist, Pharmacy Anticoagulation Clinic Pharmacy Anticoagulation Clinic Pager: [phone]. documented in this encounter [facility] 06-13-2022 Miscellaneous Notes [facility] Ambulatory Pharmacy Anticoagulation Clinic Anticoagulation Episode Summary Anticoagulation Care Providers Provider Role Specialty Phone number Bg Beverly MD Referring Family Medicine [phone] Ashley Pabon is a 66 year old year old female patient being evaluated today for a Telemanagement visit. Patient is currently on the following anticoagulant(s) Warfarin. Labs PT INR (no units) Date Value 03/03/2022 1.5 biotel 02/03/2022 3.7 07/06/2021 2.4 (biotel) INR Home CoaguChek (no units) Date Value 06/13/2022 2.1 06/06/2022 4.0 05/29/2022 2.7 Hemoglobin (g/dL) Date Value 11/26/2020 12.8 Hematocrit (%) Date Value 11/26/2020 42.2 Platelet Count (k/uL) Date Value 11/26/2020 352 Creatinine (mg/dL) Date Value 06/10/2021 0.83 04/27/2021 0.84 11/26/2020 0.89 09/13/2020 0.89 Bilirubin, Total (mg/dL) Date Value 06/10/2021 0.2 04/27/2021 0.4 ALT (U/L) Date Value 06/10/2021 23 04/27/2021 16 AST (U/L) Date Value 06/10/2021 23 04/27/2021 22 CrCl cannot be calculated (Patient's most recent lab result is older than the maximum 180 days allowed.). ALLERGIES Allergen Reactions Alesse-21 [Estrogen* Shortness of Breath Aspartame Other: See Comments headache Celebrex [Celecoxib] Rash Erythromycin [Eryth* Diarrhea Lisinopril Cough Nsaids (Non-Steroid* Unknown Due to bypass surgery Penicillins Diarrhea Sulfa (Sulfonamide * Rash Indication for Warfarin: Anticoagulation Episode Summary Current INR goal: 2.0-3.0 Assessment: INR result of 2.1 is therapeutic Plan: Current Warfarin Dosing As of 06/13/2022 Full warfarin instructions: 2.5 mg every Wed; 5 mg all other days Left voice message Advised patient to continue current weekly dose as noted above Next home INR check scheduled on 06/27/2022 Jelena Cobb RPh Clinical Pharmacist, Pharmacy Anticoagulation Clinic Pharmacy Anticoagulation Clinic Pager: [phone]. documented in this encounter [facility] 05-31-2022 Note Patient Outreach (IN [facility]) ASHLEY PABON ([id number]) 1955 F Date Time Provider Department 05/31/22 BG BEVERLY During your visit today, we recorded the following information about you: Allergies As of Date: 05/31/2022 Noted Allergy Reaction ALESSE-21 (ESTROGENS) 05/16/2004 12 - Shortness of Breath ASPARTAME 03/28/2006 14 - Other: See Comments Comments: headache CELEBREX (CELECOXIB) 05/16/2004 2 - Rash ERYTHROMYCIN (ERYTHROMYCIN BASE) 05/16/2004 6 - Diarrhea LISINOPRIL 01/09/2008 3 - Cough NSAIDS (NON-STEROIDAL ANTI-INFLAM*02/09/2009 16 - Unknown Comments: Due to bypass surgery PENICILLINS 05/16/2004 6 - Diarrhea SULFA (SULFONAMIDE ANTIBIOTICS) 05/16/2004 2 - Rash Date Reviewed: 06/10/2021 Reviewed by: Rosa Maria Jay LPN - Fully Assessed Visit Diagnosis:Encounter for screening mammogram for breast cancer [Z12.31] Order(s):[facility] SCREENING [[id number]] Order #: [id number] FUTURE Prescriptions as of 06/05/2022 - warfarin (COUMADIN) 5 mg tablet Take 5mg (1 tab) by mouth daily or as directed by Coumadin Clinic - Lancets lancets Test blood sugar(s) 1 times daily. Dx: Type 2 DM - Controlled E11.9 Insulin: No - traMADol (ULTRAM) 50 mg tablet Take 1 tablet by mouth twice daily as needed. - FLUoxetine (PROZAC) 20 mg capsule Take 1 capsule by mouth once daily. - levothyroxine (SYNTHROID) 100 mcg tablet Take 1 tablet by mouth once daily. Take on empty stomach - allopurinol (ZYLOPRIM) 100 mg tablet Take 2 tablets by mouth once daily. - ProAir RespiClick 90 mcg/actuation breath activated (albuterol sulfate) Inhale 2 Puffs as instructed every 4 hours as needed. - OXYGEN, HOME THERAPY, Inhale as instructed as directed. 2L PM - diphenhyd/phenyleph/acetaminop (TYLENOL ALLERGY M-S NIGHTTIME ORAL) Take by mouth. - alendronate (FOSAMAX) 70 mg tablet Take 1 tablet by mouth one time a week. Take with a full glass of water, on an empty stomach; do NOT lie down for 30minutes. - cyanocobalamin (VITAMIN B-12) 100 mcg tab Take 100 mcg by mouth once daily. - biotin 1 mg cap Take by mouth once daily. - Cholecalciferol, Vitamin D3, (VITAMIN D-3) 50 mcg (2,000 unit) cap Take 1 capsule by mouth once daily. - ferrous sulfate (IRON ORAL) Take by mouth once daily. - furosemide (LASIX) 20 mg tablet TAKE 1 TABLET DAILY NEEDED FOR EDEMA - PEPSIN/BETAINE HCL (PEPSIN-BETAINE ORAL) Take 1 tablet by mouth as needed. Problem List As Of Date 05/31/2022 Noted Resolved PMH - PAST MEDICAL HISTORY OF 01/09/2020 ESOPHAGEAL REFLUX [K21.9] PULM EMBOLISM/INFARCT NOS [I26.99] 12/26/2004 04/14/2013 Hypothyroidism [E03.9] 02/16/2005 BENIGN HYPERTENSION [I10] 07/07/2005 Arthritis of shoulder [M19.019] 02/19/2006 GOUT NOS [M10.9] 02/19/2006 Screening for malignant neoplasm of the cervix *03/30/2006 04/14/2013 DYSMETABOLIC SYNDROME X [E88.81] 04/04/2006 BENIGN NEOPLASM LG BOWEL [D12.6] 08/03/2006 History of cancer of uterus [Z85.42] 09/14/2006 Renal calculus, right [N20.0] 02/24/2010 Right flank pain [R10.9] 02/24/2010 04/14/2013 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] 03/17/2010 Primary localized osteoarthrosis, lower leg [M1*12/27/2010 Right bundle branch block [I45.10] 08/14/2011 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] 03/25/2012 Rosacea [L71.9] 03/25/2012 Factor 5 Leiden mutation, heterozygous [D68.51] 02/18/2013 Kidney stones [N20.0] 02/27/2013 History of pulmonary embolus (PE) [Z86.711] 03/18/2013 Osteoarthritis [M19.90] 03/27/2013 01/09/2020 Fracture of humerus, proximal, left, closed [S4*10/15/2013 01/31/2017 History of gastric bypass [Z98.84] 03/16/2014 Hyperlipidemia LDL goal <100 [E78.5] 04/05/2015 Controlled type 2 diabetes mellitus without com*04/05/2015 DDD (degenerative disc disease), lumbar [M51.36]04/05/2015 Osteoarthritis of spine with radiculopathy, cer*04/05/2015 Insomnia [G47.00] 04/05/2015 Cyst and pseudocyst of pancreas [K86.2, K86.3] 04/04/2016 Anemia [D64.9] 01/31/2017 04/25/2018 Vitamin D deficiency [E55.9] 04/23/2017 04/25/2018 Hyperparathyroidism due to vitamin D deficiency*04/23/2017 04/25/2018 Pulmonary embolism on long-term anticoagulation*04/25/2017 01/09/2020 Morbid obesity with body mass index (BMI) of 40*08/22/2017 Chronic midline low back pain without sciatica *09/26/2017 Acute pain of right shoulder [M25.511] 09/26/2017 01/09/2020 Anxiety and depression [F41.9, F32.A] 04/25/2018 Rotator cuff tear arthropathy, right [M75.101, *08/01/2018 01/09/2020 On bridging treatment with lovenox [Z79.01] 08/05/2018 Obesity, Class II, BMI 35-39.9 [E66.9] 09/06/2018 01/09/2020 Status post replacement of right shoulder joint*11/28/2018 Pelvic floor weakness in female [N81.89] 04/24/2019 Obstructive defecation [K56.41] 05/07/2019 Slow transit constipation [K59.01] 05/07/2019 Irregular bowel habits [R19.8] 05/07/2019 Pelvic floor tension [M6 (more content not included)... [facility] 05-24-2022 Miscellaneous Notes Ashley Pabon was called for anticoagulation follow-up. PT INR (no units) Date Value 03/03/2022 1.5 biotel 02/03/2022 3.7 07/06/2021 2.4 (biotel) INR Home CoaguChek (no units) Date Value 05/22/2022 5.1 05/05/2022 1.6 04/21/2022 2.9 Pt said she was ill for 3 days last week. Her appetite was down a little. Still is still taking nyquil at this time but starting to feel better and eat more normally. No bleeding/bruising/falls/injuries noted. Advised her to take 2.5mg today and then resume her normal dose. She will retest by 05/29. Ramin Dorsey PharmD Pharmacy Anticoagulation Clinic PATIENT CALL Patient called call center regarding message. Patient stated she was taking Dayquil/ Nyquil for about four days along with mucinex. Patient stated she did hold warfarin yesterday. Patient can be reached at [phone] Kofi Le ([place]) The patient was called to discuss recent INR test results. A voice message was left on patient's Home telephone voice mail. The patient was advised to call the Coumadin Clinic at [phone], hold warfarin today and go to ED if any bleeding or bruising. PT INR (no units) Date Value 03/03/2022 1.5 biotel 02/03/2022 3.7 07/06/2021 2.4 (biotel) INR Home CoaguChek (no units) Date Value 05/22/2022 5.1 05/05/2022 1.6 04/21/2022 2.9 Jelena Cobb, Pharmacist documented in this encounter [facility] 05-23-2022 Miscellaneous Notes PATIENT CALL Biot called call center regarding results PT INR (no units) Date Value 03/03/2022 1.5 biotel 02/03/2022 3.7 07/06/2021 2.4 (biotel) INR Home CoaguChek (no units) Date Value 05/22/2022 5.1 05/05/2022 1.6 04/21/2022 2.9 Patient can be reached at [phone] Kofi Le ([place]) Pt was due to test INR today. No result received. Will continue to monitor for result. documented in this encounter [facility] 05-05-2022 Miscellaneous Notes Davie Carey left a regarding the patient's INR result on 05/05. Noted result has been addressed below. Nga Cartagena, DAVIDA [facility] Ambulatory Pharmacy Anticoagulation Clinic Anticoagulation Episode Summary Anticoagulation Care Providers Provider Role Specialty Phone number Bg Beverly MD Referring Family Medicine [phone] Ashley Pabon is a 66 year old year old female patient being evaluated today for a Telemanagement visit. Patient is currently on the following anticoagulant(s) Warfarin. Labs PT INR (no units) Date Value 03/03/2022 1.5 biotel 02/03/2022 3.7 07/06/2021 2.4 (biotel) INR Home CoaguChek (no units) Date Value 05/05/2022 1.6 04/21/2022 2.9 04/06/2022 2.6 Hemoglobin (g/dL) Date Value 11/26/2020 12.8 Hematocrit (%) Date Value 11/26/2020 42.2 Platelet Count (k/uL) Date Value 11/26/2020 352 Creatinine (mg/dL) Date Value 06/10/2021 0.83 04/27/2021 0.84 11/26/2020 0.89 09/13/2020 0.89 Bilirubin, Total (mg/dL) Date Value 06/10/2021 0.2 04/27/2021 0.4 ALT (U/L) Date Value 06/10/2021 23 04/27/2021 16 AST (U/L) Date Value 06/10/2021 23 04/27/2021 22 CrCl cannot be calculated (Patient's most recent lab result is older than the maximum 180 days allowed.). ALLERGIES Allergen Reactions Alesse-21 [Estrogen* Shortness of Breath Aspartame Other: See Comments headache Celebrex [Celecoxib] Rash Erythromycin [Eryth* Diarrhea Lisinopril Cough Nsaids (Non-Steroid* Unknown Due to bypass surgery Penicillins Diarrhea Sulfa (Sulfonamide * Rash Indication for Warfarin: detention current use of anticoagulant History of pulmonary embolus (pe) Factor 5 leiden mutation, heterozygous (hcc) Anticoagulation Episode Summary Current INR goal: 2.0-3.0 Assessment: INR result of 1.6 is SUBtherapeutic due to: unknown cause - did not speak to patient Plan: Current Warfarin Dosing As of 05/05/2022 Full warfarin instructions: 05/05: 7.5 mg; Otherwise 5 mg every day; Starting 05/05/2022 Left voice message Advised patient to increase dose for 1 day only then resume weekly regimen Next home INR check scheduled on 05/19/2022. Zenobia Robertson RPh Clinical Pharmacist, Pharmacy Anticoagulation Clinic Pharmacy Anticoagulation Clinic Pager: [phone]. documented in this encounter [facility] 05-04-2022 Miscellaneous Notes Patient due to test INR today. Will continue to monitor for results. Katie Ott RPh documented in this encounter [facility] 04-21-2022 Miscellaneous Notes [facility] Ambulatory Pharmacy Anticoagulation Clinic Anticoagulation Episode Summary Anticoagulation Care Providers Provider Role Specialty Phone number Bg Beverly MD Referring Family Medicine [phone] Ashley Pabon is a 66 year old year old female patient being evaluated today for a Telemanagement visit. Patient is currently on the following anticoagulant(s) Warfarin. Labs PT INR (no units) Date Value 03/03/2022 1.5 biotel 02/03/2022 3.7 07/06/2021 2.4 (biotel) INR Home CoaguChek (no units) Date Value 04/21/2022 2.9 04/06/2022 2.6 03/30/2022 4.2 Hemoglobin (g/dL) Date Value 11/26/2020 12.8 Hematocrit (%) Date Value 11/26/2020 42.2 Platelet Count (k/uL) Date Value 11/26/2020 352 Creatinine (mg/dL) Date Value 06/10/2021 0.83 04/27/2021 0.84 11/26/2020 0.89 09/13/2020 0.89 Bilirubin, Total (mg/dL) Date Value 06/10/2021 0.2 04/27/2021 0.4 ALT (U/L) Date Value 06/10/2021 23 04/27/2021 16 AST (U/L) Date Value 06/10/2021 23 04/27/2021 22 CrCl cannot be calculated (Patient's most recent lab result is older than the maximum 180 days allowed.). ALLERGIES Allergen Reactions Alesse-21 [Estrogen* Shortness of Breath Aspartame Other: See Comments headache Celebrex [Celecoxib] Rash Erythromycin [Eryth* Diarrhea Lisinopril Cough Nsaids (Non-Steroid* Unknown Due to bypass surgery Penicillins Diarrhea Sulfa (Sulfonamide * Rash Indication for Warfarin: detention current use of anticoagulant History of pulmonary embolus (pe) Factor 5 leiden mutation, heterozygous (hcc) Anticoagulation Episode Summary Current INR goal: 2.0-3.0 Assessment: INR result of 2.9 is therapeutic Plan: Current Warfarin Dosing As of 04/20/2022 Full warfarin instructions: 5 mg every day; Starting 04/20/2022 Called and spoke to patient/caregiver Advised patient to continue current weekly dose as noted above Next home INR check scheduled on 05/04/2022 Patient verbalizes understanding of the plan. Patient denies need for refills. Katie Ott RPh Clinical Pharmacist, Pharmacy Anticoagulation Clinic Pharmacy Anticoagulation Clinic Pager: [phone]. Patient due to test INR today. Will continue to monitor for results. Katie Ott RPh documented in this encounter [facility] 04-06-2022 Miscellaneous Notes [facility] Ambulatory Pharmacy Anticoagulation Clinic Anticoagulation Episode Summary Anticoagulation Care Providers Provider Role Specialty Phone number Bg Beverly MD Referring Family Medicine [phone] Ashley Pabon is a 66 year old year old female patient being evaluated today for a Telemanagement visit. Patient is currently on the following anticoagulant(s) Warfarin. Labs PT INR (no units) Date Value 03/03/2022 1.5 biotel 02/03/2022 3.7 07/06/2021 2.4 (biotel) INR Home CoaguChek (no units) Date Value 04/06/2022 2.6 03/30/2022 4.2 03/23/2022 2.9 Hemoglobin (g/dL) Date Value 11/26/2020 12.8 Hematocrit (%) Date Value 11/26/2020 42.2 Platelet Count (k/uL) Date Value 11/26/2020 352 Creatinine (mg/dL) Date Value 06/10/2021 0.83 04/27/2021 0.84 11/26/2020 0.89 09/13/2020 0.89 Bilirubin, Total (mg/dL) Date Value 06/10/2021 0.2 04/27/2021 0.4 ALT (U/L) Date Value 06/10/2021 23 04/27/2021 16 AST (U/L) Date Value 06/10/2021 23 04/27/2021 22 CrCl cannot be calculated (Patient's most recent lab result is older than the maximum 180 days allowed.). 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 Patient denies need for refills. Katie Ott RPh Clinical Pharmacist, Pharmacy Anticoagulation Clinic Pharmacy Anticoagulation Clinic Pager: [phone]. documented in this encounter [facility] 03-30-2022 Miscellaneous Notes [facility] Ambulatory Pharmacy Anticoagulation Clinic Anticoagulation Episode Summary Anticoagulation Care Providers Provider Role Specialty Phone number Bg Beverly MD Referring Family Medicine [phone] Ashley Craven is a 66 year old year old female patient being evaluated today for a Telemanagement visit. Patient is currently on the following anticoagulant(s) Warfarin. Labs PT INR (no units) Date Value 03/03/2022 1.5 biotel 02/03/2022 3.7 07/06/2021 2.4 (biotel) INR Home CoaguChek (no units) Date Value 03/30/2022 4.2 03/23/2022 2.9 03/16/2022 1.7 Hemoglobin (g/dL) Date Value 11/26/2020 12.8 Hematocrit (%) Date Value 11/26/2020 42.2 Platelet Count (k/uL) Date Value 11/26/2020 352 Creatinine (mg/dL) Date Value 06/10/2021 0.83 04/27/2021 0.84 11/26/2020 0.89 09/13/2020 0.89 Bilirubin, Total (mg/dL) Date Value 06/10/2021 0.2 04/27/2021 0.4 ALT (U/L) Date Value 06/10/2021 23 04/27/2021 16 AST (U/L) Date Value 06/10/2021 23 04/27/2021 22 CrCl cannot be calculated (Patient's most recent lab result is older than the maximum 180 days allowed.). 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 But following recent dose increase. She has been drinking various drinks instead of just slimfast. She may stick with this but she will keep it up daily. Plan: Current Warfarin Dosing As of 03/30/2022 Full warfarin instructions: 5 mg every day; Starting 03/30/2022 Called and spoke to patient/caregiver Advised patient to hold 1 dose then continue current regimen Next home INR check scheduled on 04/06/2022 Patient verbalizes understanding of the plan. Patient denies need for refills. Ramin Dorsey [facility] Clinical Pharmacist, Pharmacy Anticoagulation Clinic Pharmacy Anticoagulation Clinic Pager: [phone]. documented in this encounter [facility] 03-23-2022 Miscellaneous Notes [facility] Ambulatory Pharmacy Anticoagulation Clinic Anticoagulation Episode Summary Anticoagulation Care Providers Provider Role Specialty Phone number Bg Beverly MD Referring Family Medicine [phone] Ashley Pabon is a 66 year old year old female patient being evaluated today for a Telemanagement visit. Patient is currently on the following anticoagulant(s) Warfarin. Labs PT INR (no units) Date Value 03/03/2022 1.5 biotel 02/03/2022 3.7 07/06/2021 2.4 (biotel) INR Home CoaguChek (no units) Date Value 03/23/2022 2.9 03/16/2022 1.7 03/09/2022 1.7 Hemoglobin (g/dL) Date Value 11/26/2020 12.8 Hematocrit (%) Date Value 11/26/2020 42.2 Platelet Count (k/uL) Date Value 11/26/2020 352 Creatinine (mg/dL) Date Value 06/10/2021 0.83 04/27/2021 0.84 11/26/2020 0.89 09/13/2020 0.89 Bilirubin, Total (mg/dL) Date Value 06/10/2021 0.2 04/27/2021 0.4 ALT (U/L) Date Value 06/10/2021 23 04/27/2021 16 AST (U/L) Date Value 06/10/2021 23 04/27/2021 22 CrCl cannot be calculated (Patient's most recent lab result is older than the maximum 180 days allowed.). ALLERGIES Allergen Reactions Alesse-21 [Estrogen* Shortness of Breath Aspartame Other: See Comments headache Celebrex [Celecoxib] Rash Erythromycin [Eryth* Diarrhea Lisinopril Cough Nsaids (Non-Steroid* Unknown Due to bypass surgery Penicillins Diarrhea Sulfa (Sulfonamide * Rash Indication for Warfarin: detention current use of anticoagulant History of pulmonary embolus (pe) Factor 5 leiden mutation, heterozygous (hcc) Anticoagulation Episode Summary Current INR goal: 2.0-3.0 Assessment: INR result of 2.9 is therapeutic Plan: Current Warfarin Dosing As of 03/23/2022 Full warfarin instructions: 5 mg every day; Starting 03/23/2022 Called and spoke to patient/caregiver Advised patient to continue current weekly dose as noted above Next home INR check scheduled on 03/30/2022 Patient verbalizes understanding of the plan. Patient denies need for refills. Katie Ott RPh Clinical Pharmacist, Pharmacy Anticoagulation Clinic Pharmacy Anticoagulation Clinic Pager: [phone]. documented in this encounter [facility] 03-16-2022 Miscellaneous Notes [facility] Ambulatory Pharmacy Anticoagulation Clinic Anticoagulation Episode Summary Anticoagulation Care Providers Provider Role Specialty Phone number Bg Beverly MD Referring Family Medicine [phone] Ashley Pabon is a 66 year old year old female patient being evaluated today for a Telemanagement visit. Patient is currently on the following anticoagulant(s) Warfarin. Labs PT INR (no units) Date Value 03/03/2022 1.5 biotel 02/03/2022 3.7 07/06/2021 2.4 (biotel) INR Home CoaguChek (no units) Date Value 03/16/2022 1.7 03/09/2022 1.7 03/03/2022 1.5 Hemoglobin (g/dL) Date Value 11/26/2020 12.8 Hematocrit (%) Date Value 11/26/2020 42.2 Platelet Count (k/uL) Date Value 11/26/2020 352 Creatinine (mg/dL) Date Value 06/10/2021 0.83 04/27/2021 0.84 11/26/2020 0.89 09/13/2020 0.89 Bilirubin, Total (mg/dL) Date Value 06/10/2021 0.2 04/27/2021 0.4 ALT (U/L) Date Value 06/10/2021 23 04/27/2021 16 AST (U/L) Date Value 06/10/2021 23 04/27/2021 22 CrCl cannot be calculated (Patient's most recent lab result is older than the maximum 180 days allowed.). 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 Pt states he has been using this for the last couple of weeks now. Counseled on consistency. Plan: Current Warfarin Dosing As of 03/16/2022 Full warfarin instructions: 03/16: 7.5 mg; Otherwise 5 mg every day; Starting 03/16/2022 Called and spoke to patient/caregiver Advised patient to increase dose for 1 day and increase total weekly regimen Next home INR check scheduled on 03/23/2022 Patient verbalizes understanding of the plan. Patient denies need for refills. Katie Ott RP Clinical Pharmacist, Pharmacy Anticoagulation Clinic Pharmacy Anticoagulation Clinic Pager: [phone]. documented in this encounter [facility] 03-09-2022 Miscellaneous Notes PATIENT CALL [facility] called call center regarding results. Result has been addressed below. Kofi Le ([place]) [facility] Ambulatory Pharmacy Anticoagulation Clinic Anticoagulation Episode Summary Anticoagulation Care Providers Provider Role Specialty Phone number Bg Beverly MD Referring Family Medicine [phone] Ashley Pabon is a 66 year old year old female patient being evaluated today for a Telemanagement visit. Patient is currently on the following anticoagulant(s) Warfarin. Labs PT INR (no units) Date Value 03/03/2022 1.5 biotel 02/03/2022 3.7 07/06/2021 2.4 (biotel) INR Home CoaguChek (no units) Date Value 03/09/2022 1.7 03/03/2022 1.5 02/23/2022 2.0 Hemoglobin (g/dL) Date Value 11/26/2020 12.8 Hematocrit (%) Date Value 11/26/2020 42.2 Platelet Count (k/uL) Date Value 11/26/2020 352 Creatinine (mg/dL) Date Value 06/10/2021 0.83 04/27/2021 0.84 11/26/2020 0.89 09/13/2020 0.89 Bilirubin, Total (mg/dL) Date Value 06/10/2021 0.2 04/27/2021 0.4 ALT (U/L) Date Value 06/10/2021 23 04/27/2021 16 AST (U/L) Date Value 06/10/2021 23 04/27/2021 22 CrCl cannot be calculated (Patient's most recent lab result is older than the maximum 180 days allowed.). ALLERGIES Allergen Reactions Alesse-21 [Estrogen* Shortness of Breath Aspartame Other: See Comments headache Celebrex [Celecoxib] Rash Erythromycin [Eryth* Diarrhea Lisinopril Cough Nsaids (Non-Steroid* Unknown Due to bypass surgery Penicillins Diarrhea Sulfa (Sulfonamide * Rash Indication for Warfarin: detention current use of anticoagulant History of pulmonary embolus (pe) Factor 5 leiden mutation, heterozygous (hcc) Anticoagulation Episode Summary Current INR goal: 2.0-3.0 Assessment: INR result of 1.7 is SUBtherapeutic due to: No obvious cause Plan: Current Warfarin Dosing As of 03/09/2022 Full warfarin instructions: 03/09: 7.5 mg; Otherwise 2.5 mg every Wed; 5 mg all other days; Starting 03/09/2022 Called and spoke to patient/caregiver Advised patient to increase dose for 1 day and increase total weekly regimen Next home INR check scheduled on 03/16/2022 Patient verbalizes understanding of the plan. Patient denies need for refills. Katie Ott RPh Clinical Pharmacist, Pharmacy Anticoagulation Clinic Pharmacy Anticoagulation Clinic Pager: [phone]. documented in this encounter [facility] 03-03-2022 Miscellaneous Notes [facility] Ambulatory Pharmacy Anticoagulation Clinic Anticoagulation Episode Summary Anticoagulation Care Providers Provider Role Specialty Phone number Bg Beverly MD Referring Family Medicine [phone] Ashley Pabon is a 66 year old year old female patient being evaluated today for a Telemanagement visit. Patient is currently on the following anticoagulant(s) Warfarin. Labs PT INR (no units) Date Value 03/03/2022 1.5 biotel 02/03/2022 3.7 07/06/2021 2.4 (biotel) INR Home CoaguChek (no units) Date Value 02/23/2022 2.0 02/17/2022 2.3 02/10/2022 3.9 Hemoglobin (g/dL) Date Value 11/26/2020 12.8 Hematocrit (%) Date Value 11/26/2020 42.2 Platelet Count (k/uL) Date Value 11/26/2020 352 Creatinine (mg/dL) Date Value 06/10/2021 0.83 04/27/2021 0.84 11/26/2020 0.89 09/13/2020 0.89 Bilirubin, Total (mg/dL) Date Value 06/10/2021 0.2 04/27/2021 0.4 ALT (U/L) Date Value 06/10/2021 23 04/27/2021 16 AST (U/L) Date Value 06/10/2021 23 04/27/2021 22 CrCl cannot be calculated (Patient's most recent lab result is older than the maximum 180 days allowed.). 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 Patient denies need for refills. Susan Chao RPh Clinical Pharmacist, Pharmacy Anticoagulation Clinic Pharmacy Anticoagulation Clinic Pager: [phone]. documented in this encounter [facility] 02-23-2022 Miscellaneous Notes [facility] Ambulatory Pharmacy Anticoagulation Clinic Anticoagulation Episode Summary Anticoagulation Care Providers Provider Role Specialty Phone number Bg Beverly MD Referring Family Medicine [phone] Ashley Pabon is a 66 year old year old female patient being evaluated today for a Telemanagement visit. Patient is currently on the following anticoagulant(s) Warfarin. Labs PT INR (no units) Date Value 02/03/2022 3.7 07/06/2021 2.4 (biotel) 06/07/2021 1.4 INR Home CoaguChek (no units) Date Value 02/23/2022 2.0 02/17/2022 2.3 02/10/2022 3.9 Hemoglobin (g/dL) Date Value 11/26/2020 12.8 Hematocrit (%) Date Value 11/26/2020 42.2 Platelet Count (k/uL) Date Value 11/26/2020 352 Creatinine (mg/dL) Date Value 06/10/2021 0.83 04/27/2021 0.84 11/26/2020 0.89 09/13/2020 0.89 Bilirubin, Total (mg/dL) Date Value 06/10/2021 0.2 04/27/2021 0.4 ALT (U/L) Date Value 06/10/2021 23 04/27/2021 16 AST (U/L) Date Value 06/10/2021 23 04/27/2021 22 CrCl cannot be calculated (Patient's most recent lab result is older than the maximum 180 days allowed.). 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 Patient denies need for refills. Katie Ott RPh Clinical Pharmacist, Pharmacy Anticoagulation Clinic Pharmacy Anticoagulation Clinic Pager: [phone]. documented in this encounter [facility] 02-17-2022 Miscellaneous Notes [facility] Ambulatory Pharmacy Anticoagulation Clinic Anticoagulation Episode Summary Anticoagulation Care Providers Provider Role Specialty Phone number Bg Beverly MD Referring Family Medicine [phone] Ashley Pabon is a 66 year old year old female patient being evaluated today for a Telemanagement visit. Patient is currently on the following anticoagulant(s) Warfarin. Labs PT INR (no units) Date Value 02/03/2022 3.7 07/06/2021 2.4 (biotel) 06/07/2021 1.4 INR Home CoaguChek (no units) Date Value 02/17/2022 2.3 02/10/2022 3.9 01/27/2022 3.3 Hemoglobin (g/dL) Date Value 11/26/2020 12.8 Hematocrit (%) Date Value 11/26/2020 42.2 Platelet Count (k/uL) Date Value 11/26/2020 352 Creatinine (mg/dL) Date Value 06/10/2021 0.83 04/27/2021 0.84 11/26/2020 0.89 09/13/2020 0.89 Bilirubin, Total (mg/dL) Date Value 06/10/2021 0.2 04/27/2021 0.4 ALT (U/L) Date Value 06/10/2021 23 04/27/2021 16 AST (U/L) Date Value 06/10/2021 23 04/27/2021 22 CrCl cannot be calculated (Patient's most recent lab result is older than the maximum 180 days allowed.). 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 documented in this encounter [facility] 02-10-2022 Miscellaneous Notes [facility] Ambulatory Pharmacy Anticoagulation Clinic Anticoagulation Episode Summary Anticoagulation Care Providers Provider Role Specialty Phone number Bg Beverly MD Referring Family Medicine [phone] Ashley Pabon is a 66 year old year old female patient being evaluated today for a Telemanagement visit. Patient is currently on the following anticoagulant(s) Warfarin. Labs PT INR (no units) Date Value 02/03/2022 3.7 07/06/2021 2.4 (biotel) 06/07/2021 1.4 INR Home CoaguChek (no units) Date Value 02/10/2022 3.9 01/27/2022 3.3 01/21/2022 3.3 Hemoglobin (g/dL) Date Value 11/26/2020 12.8 Hematocrit (%) Date Value 11/26/2020 42.2 Platelet Count (k/uL) Date Value 11/26/2020 352 Creatinine (mg/dL) Date Value 06/10/2021 0.83 04/27/2021 0.84 11/26/2020 0.89 09/13/2020 0.89 Bilirubin, Total (mg/dL) Date Value 06/10/2021 0.2 04/27/2021 0.4 ALT (U/L) Date Value 06/10/2021 23 04/27/2021 16 AST (U/L) Date Value 06/10/2021 23 04/27/2021 22 CrCl cannot be calculated (Patient's most recent lab result is older than the maximum 180 days allowed.). ALLERGIES Allergen Reactions Alesse-21 [Estrogen* Shortness of Breath Aspartame Other: See Comments headache Celebrex [Celecoxib] Rash Erythromycin [Eryth* Diarrhea Lisinopril Cough Nsaids (Non-Steroid* Unknown Due to bypass surgery Penicillins Diarrhea Sulfa (Sulfonamide * Rash Indication for Warfarin: detention current use of anticoagulant History of pulmonary embolus (pe) Factor 5 leiden mutation, heterozygous (hcc) Anticoagulation Episode Summary Current INR goal: 2.0-3.0 Assessment: INR result of 3.9 is SUPRAtherapeutic due to: No obvious cause Patient denies possible explanations for supratherapeutic INR such as decreased vitamin K intake, accidental overdose, change in OTC (including apap) / herbal products, change in warfarin stunt double, recent nausea/vomiting/diarrhea/fever, increased SOB or edema, recent change in alcohol consumption, or grapefruit/cranberry/pomegranate consumption. Plan: Current Warfarin Dosing As of 02/10/2022 Full warfarin instructions: 02/10: Hold; Otherwise 5 mg every Sun, Wed, Sun; 2.5 mg all other days Called and spoke to patient/caregiver Advised patient to hold 1 dose then decrease current regimen Next home INR check scheduled on 02/17/2022 Patient verbalizes understanding of the plan. Patient denies need for refills. Zenobia Robertson RPh Clinical Pharmacist, Pharmacy Anticoagulation Clinic Pharmacy Anticoagulation Clinic Pager: [phone]. documented in this encounter [facility] 02-03-2022 Miscellaneous Notes [facility] Ambulatory Pharmacy Anticoagulation Clinic Anticoagulation Episode Summary Anticoagulation Care Providers Provider Role Specialty Phone number Bg Beverly MD Referring Family Medicine [phone] Ashley Pabon is a 66 year old year old female patient being evaluated today for a Telemanagement visit. Patient is currently on the following anticoagulant(s) Warfarin. Labs PT INR (no units) Date Value 02/03/2022 3.7 07/06/2021 2.4 (biotel) 06/07/2021 1.4 INR Home CoaguChek (no units) Date Value 01/27/2022 3.3 01/21/2022 3.3 01/13/2022 4.3 Hemoglobin (g/dL) Date Value 11/26/2020 12.8 Hematocrit (%) Date Value 11/26/2020 42.2 Platelet Count (k/uL) Date Value 11/26/2020 352 Creatinine (mg/dL) Date Value 06/10/2021 0.83 04/27/2021 0.84 11/26/2020 0.89 09/13/2020 0.89 Bilirubin, Total (mg/dL) Date Value 06/10/2021 0.2 04/27/2021 0.4 ALT (U/L) Date Value 06/10/2021 23 04/27/2021 16 AST (U/L) Date Value 06/10/2021 23 04/27/2021 22 CrCl cannot be calculated (Patient's most recent lab result is older than the maximum 180 days allowed.). ALLERGIES Allergen Reactions Alesse-21 [Estrogen* Shortness of Breath Aspartame Other: See Comments headache Celebrex [Celecoxib] Rash Erythromycin [Eryth* Diarrhea Lisinopril Cough Nsaids (Non-Steroid* Unknown Due to bypass surgery Penicillins Diarrhea Sulfa (Sulfonamide * Rash Indication for Warfarin: detention current use of anticoagulant History of pulmonary embolus (pe) Factor 5 leiden mutation, heterozygous (hcc) Anticoagulation Episode Summary Current INR goal: 2.0-3.0 Assessment: INR result of 3.7 is SUPRAtherapeutic due to: No obvious cause Plan: Current Warfarin Dosing As of 02/03/2022 Full warfarin instructions: 02/03: Hold; Otherwise 2.5 mg every Mon, [place]; 5 mg all other days Called and spoke to patient/caregiver Advised patient to hold 1 dose then decrease current regimen Next home INR check scheduled on 02/10/2022 Patient verbalizes understanding of the plan. Patient denies need for refills. Zenobia Robertson RPh Clinical Pharmacist, Pharmacy Anticoagulation Clinic Pharmacy Anticoagulation Clinic Pager: [phone]. documented in this encounter [facility] 01-27-2022 Miscellaneous Notes [facility] Ambulatory Pharmacy Anticoagulation Clinic Anticoagulation Episode Summary Anticoagulation Care Providers Provider Role Specialty Phone number Bg Beverly MD Referring Family Medicine [phone] Ashley Pabon is a 66 year old year old female patient being evaluated today for a Telemanagement visit. Patient is currently on the following anticoagulant(s) Warfarin. Labs PT INR (no units) Date Value 07/06/2021 2.4 (biotel) 06/07/2021 1.4 04/07/2021 2.5 biotel INR Home CoaguChek (no units) Date Value 01/27/2022 3.3 01/21/2022 3.3 01/13/2022 4.3 Hemoglobin (g/dL) Date Value 11/26/2020 12.8 Hematocrit (%) Date Value 11/26/2020 42.2 Platelet Count (k/uL) Date Value 11/26/2020 352 Creatinine (mg/dL) Date Value 06/10/2021 0.83 04/27/2021 0.84 11/26/2020 0.89 09/13/2020 0.89 Bilirubin, Total (mg/dL) Date Value 06/10/2021 0.2 04/27/2021 0.4 ALT (U/L) Date Value 06/10/2021 23 04/27/2021 16 AST (U/L) Date Value 06/10/2021 23 04/27/2021 22 CrCl cannot be calculated (Patient's most recent lab result is older than the maximum 180 days allowed.). ALLERGIES Allergen Reactions Alesse-21 [Estrogen* Shortness of Breath Aspartame Other: See Comments headache Celebrex [Celecoxib] Rash Erythromycin [Eryth* Diarrhea Lisinopril Cough Nsaids (Non-Steroid* Unknown Due to bypass surgery Penicillins Diarrhea Sulfa (Sulfonamide * Rash Indication for Warfarin: detention current use of anticoagulant History of pulmonary embolus (pe) Factor 5 leiden mutation, heterozygous (hcc) Anticoagulation Episode Summary Current INR goal: 2.0-3.0 Assessment: INR result of 3.3 is SUPRAtherapeutic due to: No obvious cause Plan: Current Warfarin Dosing As of 01/27/2022 Full warfarin instructions: 01/27: Hold; Otherwise 2.5 mg every Fri; 5 mg all other days Called and spoke to patient/caregiver Advised patient to hold 1 dose then continue current regimen Next home INR check scheduled on 02/03/2022 Patient verbalizes understanding of the plan. Patient denies need for refills. Zenobia Robertson RPh Clinical Pharmacist, Pharmacy Anticoagulation Clinic Pharmacy [facility] Pager: [phone]. documented in this encounter [facility] 01-20-2022 Miscellaneous Notes Patient due to test INR today. Will continue to monitor for results. Zenobia Robertson RPh documented in this encounter [facility] 01-13-2022 Miscellaneous Notes [facility] Ambulatory Pharmacy Anticoagulation Clinic Anticoagulation Episode Summary Anticoagulation Care Providers Provider Role Specialty Phone number Bg Beverly MD Referring Family Medicine [phone] Ashley Pabon is a 66 year old year old female patient being evaluated today for a Telemanagement visit. Patient is currently on the following anticoagulant(s) Warfarin. Labs PT INR (no units) Date Value 07/06/2021 2.4 (biotel) 06/07/2021 1.4 04/07/2021 2.5 biotel INR Home CoaguChek (no units) Date Value 01/13/2022 4.3 12/28/2021 2.5 12/06/2021 3.6 Hemoglobin (g/dL) Date Value 11/26/2020 12.8 Hematocrit (%) Date Value 11/26/2020 42.2 Platelet Count (k/uL) Date Value 11/26/2020 352 Creatinine (mg/dL) Date Value 06/10/2021 0.83 04/27/2021 0.84 11/26/2020 0.89 09/13/2020 0.89 Bilirubin, Total (mg/dL) Date Value 06/10/2021 0.2 04/27/2021 0.4 ALT (U/L) Date Value 06/10/2021 23 04/27/2021 16 AST (U/L) Date Value 06/10/2021 23 04/27/2021 22 CrCl cannot be calculated (Patient's most recent lab result is older than the maximum 180 days allowed.). ALLERGIES Allergen Reactions Alesse-21 [Estrogen* Shortness of Breath Aspartame Other: See Comments headache Celebrex [Celecoxib] Rash Erythromycin [Eryth* Diarrhea Lisinopril Cough Nsaids (Non-Steroid* Unknown Due to bypass surgery Penicillins Diarrhea Sulfa (Sulfonamide * Rash Indication for Warfarin: detention current use of anticoagulant History of pulmonary embolus (pe) Factor 5 leiden mutation, heterozygous (hcc) Anticoagulation Episode Summary Current INR goal: 2.0-3.0 Assessment: INR result of 4.3 is SUPRAtherapeutic due to: Medication change or drug interaction and Decreased vitamin k intake Patient started on tramadol Plan: Current Warfarin Dosing As of 01/13/2022 Full warfarin instructions: 5 mg every day Called and spoke to patient/caregiver Advised patient to hold 1 dose then continue current regimen Next home INR check scheduled on 01/20/2022 Patient verbalizes understanding of the plan. Patient denies need for refills. Zenobia Robertson RPh Clinical Pharmacist, Pharmacy Anticoagulation Clinic Pharmacy Anticoagulation Clinic Pager: [phone]. documented in this encounter [facility] 01-11-2022 Miscellaneous Notes Patient was due to test INR today will continue to monitor for results. Ramin Dorsey PharmD Pharmacy Anticoagulation Clinic documented in this encounter [facility] 12-06-2021 History of Present illness Narrative VIRTUAL VISIT PROGRESS NOTE This is a virtual visit using [employer] video visit. It required patient-provider interaction for the medical decision making as documented below. Ashley Pabon is a 66 year old female seen for follow-up from pancreas cyst. She has no pain. She has no nausea or vomiting. She denies any jaundice.. HISTORY REVIEWED (electronic chart updated): PAST MEDICAL HISTORY Diagnosis Date Anxiety Arthritis Asthma Benign neoplasm of colon Blood dyscrasia Bowel incontinence Cyst and pseudocyst of pancreas 04/04/2016 Depressive disorder Diabetes mellitus type 2, controlled, without complications (HCC) 04/05/2015 DVT (deep venous thrombosis) (HCC) 2003 dvt and pulmonary embolus after train ride Esophageal reflux Factor 5 Leiden mutation, heterozygous (HCC) 02/18/2013 Factor H deficiency (HCC) Generalized anxiety disorder Gout elevated uric acid History of Tab-en-Y gastric bypass Hypertension Hypothyroid IBS (irritable bowel syndrome) Intraductal papillary mucinous tumor 03/25/2012 Malignant neoplasm of uterus, part unspecified (HCC) 2004 no mets, choriocarcinoma Morbid obesity (HCC) Obstruction of bile duct Osteoarthritis of lumbar spine 03/17/2010 Osteopenia of both hips 12/24/2020 Pancreatic cyst Pulmonary embolism (HCC) Pulmonary embolism on long-term anticoagulation therapy (HCC) 04/25/2017 in 2003 Pure hypercholesterolemia Right bundle branch block 08/14/2011 Rosacea 03/25/2012 Sleep apnea Pt reports she wears O2 @ @ 1.5lnc/c @ bedtime Unspecified constipation Urinary incontinence Uterus cancer (HCC) 2004 PAST SURGICAL HISTORY Procedure Laterality Date APPENDECTOMY 1982 ARTHROPLASTY TOTAL SHOULDER Right 09/06/2018 reverse ARTHRP KNE CONDYLE&PLATU MEDIAL&LAT COMPARTMENTS Right 2011 Knee replacement, total CHOLECYSTECTOMY 2008 COLONOSCOPY FLX DX W/COLLJ SPEC WHEN PFRMD 03/14/2019 Colonoscopy COLONOSCOPY W/BIOPSY SINGLE/MULTIPLE 08/03/2006 ESOPHAGOGASTRODUODENOSCOPY TRANSORAL DIAGNOSTIC EGD GASTRIC BYPASS HX 2008 GSTRCT TOT W/TAB-EN-Y RCNSTJ 02/01/2009 IR KANNAN FILTER FEMORAL 12/18/2008 Insert IVC filter LITHOTRIPSY XTRCORP SHOCK WAVE 2003 Lithotripsy LX REPAIR RECURRENT VENTRAL HERNIA MIDLINE INSERTION/CONSULT 10/27/2019 PAST SURGICAL HISTORY OF 2018 Dental sx REMOVAL SKN TAGS SENIOR PRICING ANALYST FIBRQ TAGS ANY AREA UPW/15 05/02/2006 Multiple tags TOTAL ABDOMINAL HYSTERECT W/WO RMVL TUBE OVARY 2004 Hysterectomy, ELMER, & Panniculectomy VAGINAL DELIVERY HX 1985 FAMILY HISTORY Problem Relation Age of Onset None Mother auto accident Coronary Artery Disease Father VT 51 DVT Father Hypertension Sister other (DDD) Sister Narcolepsy Sister other (pancreatic cyst) Sister Hypertension Sister other (Cancer of larynx) Brother DVT Brother other (CABG) Brother Ischemic Heart Disease Brother Accidental Brother No Known Problems Maternal Grandmother No Known Problems Maternal Grandfather No Known Problems Paternal Grandmother Thyroid Other other (Osteoarthritis) Other other (Heart disease) Other Social History Tobacco Use Smoking status: Former Smokeless tobacco: Never Tobacco comments: Quit @ age 19 Vaping Use Vaping Use: Never used Substance Use Topics Alcohol use: Yes Comment: rarely Drug use: Never Current Outpatient Medications Medication Sig iv contrast (will be provided with radiology test) MRI PANC/ZAYRA Inject, intravenously, once for 1 dose. No IV access, insert saline lock prior to the beginning of sedation, infusion, injection of imaging exam. Discontinue saline lock post exam. If Pt. has a central line or IVAD, may access for administration according to line specific nursing protocol. Once exam is complete flush line and de-access according to line specific nursing protocol in the MR contrast administration guidelines link. warfarin (COUMADIN) 5 mg tablet Take 5mg (1 tab) by mouth daily or as directed by Coumadin Clinic blood sugar diagnostic (ONETOUCH ULTRA TEST) test strip 1 Strip once daily. Pt has OneTouch Ultra 2 Meter. Lancets lancets Test blood sugar(s) 1 times daily. Dx: Type 2 DM - Controlled E11.9 Insulin: No traMADol (ULTRAM) 50 mg tablet Take 1 tablet by mouth twice daily as needed. FLUoxetine (PROZAC) 20 mg capsule Take 1 capsule by mouth once daily. levothyroxine (SYNTHROID) 100 mcg tablet Take 1 tablet by mouth once daily. Take on empty stomach allopurinol (ZYLOPRIM) 100 mg tablet Take 2 tablets by mouth once daily. ProAir RespiClick 90 mcg/actuation breath activated (albuterol sulfate) Inhale 2 Puffs as instructed every 4 hours as needed. traZODone (DESYREL) 50 mg tablet Take 1 tablet by mouth daily at bedtime. OXYGEN, HOME THERAPY, Inhale as instructed as directed. 2L PM diphenhyd/phenyleph/acetaminop (TYLENOL ALLERGY M-S NIGHTTIME ORAL) Take by mouth. alendronate (FOSAMAX) 70 mg tablet Take 1 tablet by mouth one time a week. Take with a full glass of water, on an empty stomach; do NOT lie down for 30minutes. cyanocobalamin (VITAMIN B-12) 100 mcg tab Take 100 mcg by mouth once daily. biotin 1 mg cap Take by mouth once daily. Cholecalciferol, Vitamin D3, (VITAMIN D-3) 50 mcg (2,000 unit) cap Take 1 capsule by mouth once daily. ferrous sulfate (IRON ORAL) Take by mouth once daily. furosemide (LASIX) 20 mg tablet TAKE 1 TABLET DAILY NEEDED FOR EDEMA PEPSIN/BETAINE HCL (PEPSIN-BETAINE ORAL) Take 1 tablet by mouth as needed. No current facility-administered medications for this visit. ALLERGIES Allergen Reactions Alesse-21 [Estrogen* Shortness of Breath Aspartame Other: See Comments headache Celebrex [Celecoxib] Rash Erythromycin [Eryth* Diarrhea Lisinopril Cough Nsaids (Non-Steroid* Unknown Due to bypass surgery Penicillins Diarrhea Sulfa (Sulfonamide * Rash REVIEW OF SYSTEMS: GENERAL: feeling well without fatigue, no recent change in weight HEENT: denies ROCA, change in hearing or vision, no other ENT complaints GI: normal appetite, tolerating PO well, BMs normal, and no abdominal pain PHYSICAL EXAMINATION: VIDEO EXAM: (if completed, performed via video enabled technology) No exam performed ASSESSMENT: (D49.0) IPMN (intraductal papillary mucinous neoplasm) (primary encounter diagnosis) (K85.90) Acute pancreatitis, unspecified complication status, unspecified pancreatitis type PLAN: I reviewed her recent MRI. There is no change in her dilated bile duct and her cyst in her pancreas. I had a long discussion with her and told her that she can be safely monitored with a repeat MRI in 1 year. This will be form closer to home for her. I will see her after that. There are no Patient Instructions on file for this visit. I spent a total of 30 minutes on the date of the service which included preparing to see the patient, [id number] patient care, completing clinical documentation, obtaining and/or reviewing separately obtained history, counseling and educating the patient/family/caregiver, ordering medications, tests, or procedures, independently interpreting results (not separately reported), and communicating results to the patient/family/caregiver Viviane Mae MD documented in this encounter [facility] 12-02-2021 Miscellaneous Notes Patient due to test INR today. Will continue to monitor for results. Zenobia Robertson RPh documented in this encounter [facility] 11-01-2021 Miscellaneous Notes Patient was due to test INR today. Will continue to monitor for results. Adriane Rivera PharmD documented in this encounter [facility] 10-25-2021 Miscellaneous Notes [facility] Ambulatory Pharmacy Anticoagulation Clinic Anticoagulation Episode Summary Anticoagulation Care Providers Provider Role Specialty Phone number Bg Beverly MD Referring [facility] [phone] Ashley Pabon is a 66 year old year old female patient being evaluated today for a Telemanagement visit. Patient is currently on the following anticoagulant(s) Warfarin. Labs PT INR (no units) Date Value 07/06/2021 2.4 (biotel) 06/07/2021 1.4 04/07/2021 2.5 biotel INR Home CoaguChek (no units) Date Value 10/25/2021 3.1 10/12/2021 2.3 10/05/2021 3.9 Hemoglobin (g/dL) Date Value 11/26/2020 12.8 Hematocrit (%) Date Value 11/26/2020 42.2 Platelet Count (k/uL) Date Value 11/26/2020 352 Creatinine (mg/dL) Date Value 06/10/2021 0.83 04/27/2021 0.84 11/26/2020 0.89 09/13/2020 0.89 Bilirubin, Total (mg/dL) Date Value 06/10/2021 0.2 04/27/2021 0.4 ALT (U/L) Date Value 06/10/2021 23 04/27/2021 16 AST (U/L) Date Value 06/10/2021 23 04/27/2021 22 CrCl cannot be calculated (Unknown ideal weight.). ALLERGIES Allergen Reactions Alesse-21 [Estrogen* Shortness of Breath Aspartame Other: See Comments headache Celebrex [Celecoxib] Rash Erythromycin [Eryth* Diarrhea Lisinopril Cough Nsaids (Non-Steroid* Unknown Due to bypass surgery Penicillins Diarrhea Sulfa (Sulfonamide * Rash Indication for Warfarin: detention current use of anticoagulant History of pulmonary embolus (pe) Factor 5 leiden mutation, heterozygous (hcc) Anticoagulation Episode Summary Current INR goal: 2.0-3.0 Assessment: INR result of 3.1 is slightly supra therapeutic Plan: Current Warfarin Dosing As of 10/25/2021 Warfarin maintenance plan: 5 mg (5 mg x 1) every day Called and spoke to patient/caregiver Advised patient to continue current weekly dose as noted above Next home INR check scheduled on 11/01/2021 Patient verbalizes understanding of the plan. Patient denies need for refills. Ramin Dorsey RPh Clinical Pharmacist, Pharmacy Anticoagulation Clinic Pharmacy Anticoagulation Clinic Pager: [phone] . documented in this encounter [facility] 10-21-2021 History of Present illness Narrative Radiology Service Progress Note DATE OF SERVICE: October 21, 2021 TIME: 10:03 AM PATIENT IDENTITY VERIFICATION COMPLETED USING TWO (2) STANDARD IDENTIFIERS: Name and Date of confirmed by patient verbally. FALL SCREENING: Has the patient had 2 falls in the last year or 1 fall with injury or currently using an Ambulatory Assistive Device (Walker, Cane, Wheelchair, Crutches, etc.)? No PATIENT GENDER DATA: Female. status: : No status: NO. PATIENT RELEVANT IMPLANT DATA REVIEWED: Not Applicable ALLERGIES: Reviewed and unchanged CONTRAST ALLERGY: NO. EXAM: MRI - CONTRAST TYPE: GROUP II PERIPHERAL IV DATA: Ambulatory: A peripheral IV was started in the Right forearm with a Angio cath: 22 gauge. RADIOLOGY DEPARTMENT: MR; Exam(s) Completed: Body: Pancreas/Biliary SIGNATURE: RT Isidro(R) PATIENT NAME: Ashley Pabon DATE: October 21, 2021 TIME: 10:03 AM documented in this encounter [facility] 10-12-2021 Miscellaneous Notes [facility] Ambulatory Pharmacy Anticoagulation Clinic Anticoagulation Episode Summary Anticoagulation Care Providers Provider Role Specialty Phone number Bg Beverly MD Referring [facility] [phone] Ashley Pabon is a 66 year old year old female patient being evaluated today for a Telemanagement visit. Patient is currently on the following anticoagulant(s) Warfarin. Labs PT INR (no units) Date Value 07/06/2021 2.4 (biotel) 06/07/2021 1.4 04/07/2021 2.5 biotel INR Home CoaguChek (no units) Date Value 10/12/2021 2.3 10/05/2021 3.9 09/28/2021 2.7 Hemoglobin (g/dL) Date Value 11/26/2020 12.8 Hematocrit (%) Date Value 11/26/2020 42.2 Platelet Count (k/uL) Date Value 11/26/2020 352 Creatinine (mg/dL) Date Value 06/10/2021 0.83 04/27/2021 0.84 11/26/2020 0.89 09/13/2020 0.89 Bilirubin, Total (mg/dL) Date Value 06/10/2021 0.2 04/27/2021 0.4 ALT (U/L) Date Value 06/10/2021 23 04/27/2021 16 AST (U/L) Date Value 06/10/2021 23 04/27/2021 22 CrCl cannot be calculated (Unknown ideal weight.). ALLERGIES Allergen Reactions Alesse-21 [Estrogen* Shortness of Breath Aspartame Other: See Comments headache Celebrex [Celecoxib] Rash Erythromycin [Eryth* Diarrhea Lisinopril Cough Nsaids (Non-Steroid* Unknown Due to bypass surgery Penicillins Diarrhea Sulfa (Sulfonamide * Rash Indication for Warfarin: detention current use of anticoagulant History of pulmonary embolus (pe) Factor 5 leiden mutation, heterozygous (hcc) Anticoagulation Episode Summary Current INR goal: 2.0-3.0 Assessment: INR result of 2.3 is therapeutic following recent held dose. Plan: Current Warfarin Dosing As of 10/12/2021 Warfarin maintenance plan: 5 mg (5 mg x 1) every day Left voice message Advised patient to continue current weekly dose as noted above Next home INR check scheduled on 10/26/2021 Ramin Dorsey RPh Clinical Pharmacist, Pharmacy Anticoagulation Clinic Pharmacy Anticoagulation Clinic Pager: [phone] . documented in this encounter [facility] 10-05-[address] Beverly, Please sign the Prior Authorization Form to update you as the patient's current PCP and referring physican. The PAF can be found under the letters tab in the patient's chart. Under comments it will show Home INR meter PAF. The PAF may be printed from there and once signed can be faxed back to the Pharmacy Anticoagulation Clinic at [phone]. If you have any questions about the home INR program, also known as the Pharmacist Managed Telemanagement Anticoagulation (PAC) service, please contact a member of our pharmacy team at [phone] Option #2. Thank you, Linsey Cartagena RN Pharmacy Anticoagulation Clinic Received call from Megan Broderick Remote INR to report home meter result for patient. [facility] has already addressed this result (see below); nothing further needed at this time. Hope Farah CPhT (Molding Fitter) Pharmacy Anticoagulation Clinic [facility] Ambulatory Pharmacy Anticoagulation Clinic Anticoagulation Episode Summary Anticoagulation Care Providers Provider Role Specialty Phone number Sixto Viera III, MD Referring Family Practice Ashley Pabon is a 66 year old year old female patient being evaluated today for a Telemanagement visit. Patient is currently on the following anticoagulant(s) Warfarin. Labs PT INR (no units) Date Value 07/06/2021 2.4 (biotel) 06/07/2021 1.4 04/07/2021 2.5 biotel INR Home CoaguChek (no units) Date Value 10/05/2021 3.9 09/28/2021 2.7 09/21/2021 5.1 Hemoglobin (g/dL) Date Value 11/26/2020 12.8 Hematocrit (%) Date Value 11/26/2020 42.2 Platelet Count (k/uL) Date Value 11/26/2020 352 Creatinine (mg/dL) Date Value 06/10/2021 0.83 04/27/2021 0.84 11/26/2020 0.89 09/13/2020 0.89 Bilirubin, Total (mg/dL) Date Value 06/10/2021 0.2 04/27/2021 0.4 ALT (U/L) Date Value 06/10/2021 23 04/27/2021 16 AST (U/L) Date Value 06/10/2021 23 04/27/2021 22 CrCl cannot be calculated (Unknown ideal weight.). ALLERGIES Allergen Reactions Alesse-21 [Estrogen* Shortness of Breath Aspartame Other: See Comments headache Celebrex [Celecoxib] Rash Erythromycin [Eryth* Diarrhea Lisinopril Cough Nsaids (Non-Steroid* Unknown Due to bypass surgery Penicillins Diarrhea Sulfa (Sulfonamide * Rash Indication for Warfarin: History of pulmonary embolus (pe) Factor 5 leiden mutation, heterozygous (hcc) Anticoagulation Episode Summary Current INR goal: 2.0-3.0 Assessment: INR result of 3.9 is SUPRAtherapeutic due to: a tylenol PM every night, maybe a little less vitamin K Plan: Called and spoke to patient/caregiver Advised patient to hold 1 dose then continue current regimen Next home INR check scheduled on 10/12/21 Patient verbalizes understanding of the plan. Patient requests need for refills. Ramin Dorsey RPh Clinical Pharmacist, Pharmacy Anticoagulation Clinic Pharmacy Anticoagulation Clinic Pager: [phone] . documented in this encounter [facility] 10-05-2021 Miscellaneous Notes Updated anticoag navigator. Will send updated PAF for Dr. Beverly's signature upon his return. Linsey Cartagena RN Pharmacy Anticoagulation Clinic Yes. He is out of the office this week. Krystal Schroeder APRN.RAFAEL Satnam Rice: Just confirming Dr. Beverly will be the referring physician on record? It has your name listed, so wanted to clarify. Thank you, Linsey Cartagena RN Pharmacy Anticoagulation Clinic I placed order to continue with the home coumadin monitoring with pharmacy. Thanks, Krystal Schroeder APRN.CNP Pharm phone call placed. Linsey Cartagena RN Pharmacy Anticoagulation Clinic Hi Dr. Beverly, Ashley Pabon [phone] was originally referred to the Pharmacy Anticoagulation Clinic by Dr. Viera who is no longer involved in the patient s care. It appears that you are the [facility] physician most involved in the patient's care. Would you agree to serve as referring physician for our ongoing anticoagulation follow up? Please place a new referral to Anticoagulation/Coumadin Clinic Pharm (order #[id number].) Diagnosis:Primary Hypercoagulable State: Factor V Leiden mutation ( heterozygous ) and Pulmonary Embolism INR Range: 2 to 3 Duration: Indefinite Please feel free to call/email/page if you have questions or concerns. Thank you, Ramin Dorsey PharmD Pharmacy Anticoagulation Clinic documented in this encounter [facility] 10-05-2021 Miscellaneous Notes The following approved medication requests have been transmitted electronically. Signed Prescriptions Disp Refills warfarin (COUMADIN) 5 mg tablet 90 tablet 1 Sig: Take 5mg (1 tab) by mouth daily or as directed by Coumadin Clinic PETRA: No Authorizing Provider: BG BEVERLY Ordering User: RAMIN DORSEY Pharmacy e- [facility] [place] [address] - [address] [place] [address] [address] [address] Ramin Dorsey RPh documented in this encounter [facility] 09-28-2021 Miscellaneous Notes [facility] Ambulatory Pharmacy Anticoagulation Clinic Anticoagulation Episode Summary Anticoagulation Care Providers Provider Role Specialty Phone number Sixto Viera III, MD Referring Family Practice Ashley Pabon is a 66 year old year old female patient being evaluated today for a Telemanagement visit. Patient is currently on the following anticoagulant(s) Warfarin. Labs PT INR (no units) Date Value 07/06/2021 2.4 (biotel) 06/07/2021 1.4 04/07/2021 2.5 biotel INR Home CoaguChek (no units) Date Value 09/28/2021 2.7 09/21/2021 5.1 09/14/2021 4.4 Hemoglobin (g/dL) Date Value 11/26/2020 12.8 Hematocrit (%) Date Value 11/26/2020 42.2 Platelet Count (k/uL) Date Value 11/26/2020 352 Creatinine (mg/dL) Date Value 06/10/2021 0.83 04/27/2021 0.84 11/26/2020 0.89 09/13/2020 0.89 Bilirubin, Total (mg/dL) Date Value 06/10/2021 0.2 04/27/2021 0.4 ALT (U/L) Date Value 06/10/2021 23 04/27/2021 16 AST (U/L) Date Value 06/10/2021 23 04/27/2021 22 CrCl cannot be calculated (Unknown ideal weight.). ALLERGIES Allergen Reactions Alesse-21 [Estrogen* Shortness of Breath Aspartame Other: See Comments headache Celebrex [Celecoxib] Rash Erythromycin [Eryth* Diarrhea Lisinopril Cough Nsaids (Non-Steroid* Unknown Due to bypass surgery Penicillins Diarrhea Sulfa (Sulfonamide * Rash Indication for Warfarin: History of pulmonary embolus (pe) Factor 5 leiden mutation, heterozygous (hcc) Anticoagulation Episode Summary Current INR goal: 2.0-3.0 Assessment: INR result of 2.7 is therapeutic Following held and lower dose this past week. Plan: Called and spoke to patient/caregiver Advised patient to decrease total weekly regimen Next home INR check scheduled on 10/05/2021 Patient verbalizes understanding of the plan. Patient denies need for refills. Ramin Dorsey RPh Clinical Pharmacist, Pharmacy Anticoagulation Clinic Pharmacy Anticoagulation Clinic Pager: [phone] . documented in this encounter [facility] 09-14-2021 Miscellaneous Notes [facility] Ambulatory Pharmacy Anticoagulation Clinic Anticoagulation Episode Summary Anticoagulation Care Providers Provider Role Specialty Phone number Sixto Viera III, MD Referring Family Practice Ashley Pabon is a 65 year old year old female patient being evaluated today for a Telemanagement visit. Patient is currently on the following anticoagulant(s) Warfarin. Labs PT INR (no units) Date Value 07/06/2021 2.4 (biotel) 06/07/2021 1.4 04/07/2021 2.5 biotel INR Home CoaguChek (no units) Date Value 09/14/2021 4.4 09/06/2021 2.3 09/02/2021 6.8 Hemoglobin (g/dL) Date Value 11/26/2020 12.8 Hematocrit (%) Date Value 11/26/2020 42.2 Platelet Count (k/uL) Date Value 11/26/2020 352 Creatinine (mg/dL) Date Value 06/10/2021 0.83 04/27/2021 0.84 11/26/2020 0.89 09/13/2020 0.89 Bilirubin, Total (mg/dL) Date Value 06/10/2021 0.2 04/27/2021 0.4 ALT (U/L) Date Value 06/10/2021 23 04/27/2021 16 AST (U/L) Date Value 06/10/2021 23 04/27/2021 22 CrCl cannot be calculated (Unknown ideal weight.). ALLERGIES Allergen Reactions Alesse-21 [Estrogen* Shortness of Breath Aspartame Other: See Comments headache Celebrex [Celecoxib] Rash Erythromycin [Eryth* Diarrhea Lisinopril Cough Nsaids (Non-Steroid* Unknown Due to bypass surgery Penicillins Diarrhea Sulfa (Sulfonamide * Rash Indication for Warfarin: History of pulmonary embolus (pe) Factor 5 leiden mutation, heterozygous (hcc) Anticoagulation Episode Summary Current INR goal: 2.0-3.0 Assessment: INR result of 4.4 is SUPRAtherapeutic due to: No obvious cause Pt denies medication change, grapefruit/cranberry ingestion, OTC medication use, accidental overdosage, change in Warfarin tablet shape or color, change in Vit K consumption, recent illness or fever, increased edema, NVD, or EtOH consumption. She was on a lower dose in the past. Plan: Called and spoke to patient/caregiver Advised patient to hold 1 dose then decrease current regimen Next point of care INR check scheduled on 09/21/2021 Patient verbalizes understanding of the plan. Patient denies need for refills. Ramin Dorsey RPh Clinical Pharmacist, Pharmacy Anticoagulation Clinic Pharm[facility] Pager: [phone] . Ashley Pabon was called and reminded to test INR today or as soon as possible. Jelena Cobb RPh documented in this encounter [facility] 09-02-2021 Miscellaneous Notes [facility] Ambulatory Pharmacy Anticoagulation Clinic Anticoagulation Episode Summary Anticoagulation Care Providers Provider Role Specialty Phone number Sixto Viera III, MD Referring [facility] Ashley Pabon is a 65 year old year old female patient being evaluated today for a Telemanagement visit. Patient is currently on the following anticoagulant(s) Warfarin. Labs PT INR (no units) Date Value 07/06/2021 2.4 (biotel) 06/07/2021 1.4 04/07/2021 2.5 biotel INR Home CoaguChek (no units) Date Value 09/02/2021 6.8 08/15/2021 3.1 07/28/2021 3.1 Hemoglobin (g/dL) Date Value 11/26/2020 12.8 Hematocrit (%) Date Value 11/26/2020 42.2 Platelet Count (k/uL) Date Value 11/26/2020 352 Creatinine (mg/dL) Date Value 06/10/2021 0.83 04/27/2021 0.84 11/26/2020 0.89 09/13/2020 0.89 Bilirubin, Total (mg/dL) Date Value 06/10/2021 0.2 04/27/2021 0.4 ALT (U/L) Date Value 06/10/2021 23 04/27/2021 16 AST (U/L) Date Value 06/10/2021 23 04/27/2021 22 Estimated Creatinine Clearance: 74.9 mL/min (based on SCr of 0.83 mg/dL). ALLERGIES Allergen Reactions Alesse-21 [Estrogen* Shortness of Breath Aspartame Other: See Comments headache Celebrex [Celecoxib] Rash Erythromycin [Eryth* Diarrhea Lisinopril Cough Nsaids (Non-Steroid* Unknown Due to bypass surgery Penicillins Diarrhea Sulfa (Sulfonamide * Rash Indication for Warfarin: History of pulmonary embolus (pe) Factor 5 leiden mutation, heterozygous (hcc) Anticoagulation Episode Summary Current INR goal: 2.0-3.0 Assessment: INR result of 6.8 is SUPRAtherapeutic due to: No obvious cause o Mitocore started 08/29 - unsure if this is the cause for high INR; the ingredient list includes resveratrol, which has been shown to possibly increase INR o Denies change in OTC/herbal/nutritional supplement use, accidental overdosage, change in warfarin stunt double, recent N/V/D/Fever, increased SOB or edema, recent change in alcohol consumption, or grapefruit/cranberry consumption o Patient does endorse small bruises, but no major bruising or bleeding Plan: Called and spoke to patient/caregiver Advised patient to hold warfarin x3 doses, then take 5mg on 09/05 Next home INR check scheduled on Patient verbalizes understanding of the plan. Patient denies need for refills. Zenobia Robertson RPh Clinical Pharmacist, Pharmacy Anticoagulation Clinic Pharmacy Anticoagulation Clinic Pager: [phone] . documented in this encounter [facility] 07-28-2021 Miscellaneous Notes [facility] Ambulatory Pharmacy Anticoagulation Clinic Anticoagulation Episode Summary Anticoagulation Care Providers Provider Role Specialty Phone number Sixto Viera III, MD Referring Family Practice Ashley Pabon is a 65 year old year old female patient being evaluated today for a Telemanagement visit. Patient is currently on the following anticoagulant(s) Warfarin. Labs PT INR (no units) Date Value 07/06/2021 2.4 (biotel) 06/07/2021 1.4 04/07/2021 2.5 biotel INR Home CoaguChek (no units) Date Value 07/28/2021 3.1 06/22/2021 2.1 06/13/2021 1.5 Hemoglobin (g/dL) Date Value 11/26/2020 12.8 Hematocrit (%) Date Value 11/26/2020 42.2 Platelet Count (k/uL) Date Value 11/26/2020 352 Creatinine (mg/dL) Date Value 06/10/2021 0.83 04/27/2021 0.84 11/26/2020 0.89 09/13/2020 0.89 Bilirubin, Total (mg/dL) Date Value 06/10/2021 0.2 04/27/2021 0.4 ALT (U/L) Date Value 06/10/2021 23 04/27/2021 16 AST (U/L) Date Value 06/10/2021 23 04/27/2021 22 Estimated Creatinine Clearance: 74.9 mL/min (based on SCr of 0.83 mg/dL). ALLERGIES Allergen Reactions Alesse-21 [Estrogen* Shortness of Breath Aspartame Other: See Comments headache Celebrex [Celecoxib] Rash Erythromycin [Eryth* Diarrhea Lisinopril Cough Nsaids (Non-Steroid* Unknown Due to bypass surgery Penicillins Diarrhea Sulfa (Sulfonamide * Rash Indication for Warfarin: History of pulmonary embolus (pe) Factor 5 leiden mutation, heterozygous (hcc) Anticoagulation Episode Summary Current INR goal: 2.0-3.0 Assessment: INR result of 3.1 is SUPRAtherapeutic due to: unknown cause - did not speak to patient Plan: Left voice message Advised patient to decrease dose for 1 day only then resume weekly regimen Next home INR check scheduled on 08/10/2021 Advised pt to Call Coumadin Clinic at [phone] to confirm dosing and follow-up Susan Chao RPh Clinical Pharmacist, Pharmacy Anticoagulation Clinic Pharmacy Anticoagulation Clinic Pager: [phone] . Ashley Pabon was called and reminded to test INR today or as soon as possible. LM for pt on her home number. Ramin Dorsey PharmD Pharmacy Anticoagulation Clinic Patient was due to test INR today will continue to monitor for results. Ramin Dorsey PharmD documented in this encounter [facility] 07-06-2021 Miscellaneous Notes [facility] Ambulatory Pharmacy Anticoagulation Clinic Anticoagulation Episode Summary Anticoagulation Care Providers Provider Role Specialty Phone number Sixto Viera III, MD Referring Family Practice Ashley Pabon is a 65 year old year old female patient being evaluated today for a Telemanagement visit. Patient is currently on the following anticoagulant(s) Warfarin. Labs PT INR (no units) Date Value 07/06/2021 2.4 (biotel) 06/07/2021 1.4 04/07/2021 2.5 biotel INR Home CoaguChek (no units) Date Value 06/22/2021 2.1 06/13/2021 1.5 05/31/2021 1.1 Hemoglobin (g/dL) Date Value 11/26/2020 12.8 Hematocrit (%) Date Value 11/26/2020 42.2 Platelet Count (k/uL) Date Value 11/26/2020 352 Creatinine (mg/dL) Date Value 06/10/2021 0.83 04/27/2021 0.84 11/26/2020 0.89 09/13/2020 0.89 Bilirubin, Total (mg/dL) Date Value 06/10/2021 0.2 04/27/2021 0.4 ALT (U/L) Date Value 06/10/2021 23 04/27/2021 16 AST (U/L) Date Value 06/10/2021 23 04/27/2021 22 Estimated Creatinine Clearance: 74.9 mL/min (based on SCr of 0.83 mg/dL). 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 documented in this encounter [facility] 06-09-2021 Miscellaneous Notes Patient states the 5 pended scripts were to be sent to [facility] on 04/29/21 however patient states the pharmacy states they never received the scripts. Patient asking them to be resent. Thank you. documented in this encounter [facility] documented as of this encounter (statuses as of 07/06/2021) [facility] History of Past illness Narrative* Problem Noted Date Resolved Date Obesity, Class II, BMI 35-39.9 09/06/2018 1 Rotator cuff tear arthropathy, right 08/01/2018 01/09/2020 Acute pain of right shoulder 09/26/201705/2019 Pulmonary embolism on long-term anticoagulation therapy 04/25/2017 01/09/2020 Vitamin D deficiency 04/23/2017 04/25/2018 Hyperparathyroidism due to vitamin D deficiency 04/23/2017 04/25/2018 Anemia 01/31/2017 04/25/2018 Fracture of humerus, proximal, left, closed 12/201301/31/2017 Osteoarthritis 03/27/2013 01/09/2020 Right flank pain 02/24/2010 04/14/2013 Screening for malignant neoplasm of the cervix 1 05/31/2005 04/14/2013 PULM EMBOLISM/INFARCT NOS 12/26/20042013 [facility] - PAST MEDICAL HISTORY OF Overview: hypothyriod documented as of this encounter (statuses as of 07/28/2021) [facility] History of Past illness Narrative* Problem Noted Date Resolved Date Obesity, Class II, BMI 35-39.9 09/06/2018 1 Rotator cuff tear arthropathy, right 08/01/2018 01/09/2020 Acute pain of right shoulder 09/26/201705/2019 Pulmonary embolism on long-term anticoagulation therapy 04/25/2017 01/09/2020 Vitamin D deficiency 04/23/2017 04/25/2018 Hyperparathyroidism due to vitamin D deficiency 04/23/2017 04/25/2018 Anemia 01/31/2017 04/25/2018 Fracture of humerus, proximal, left, closed 07/0 12/201301/31/2017 Osteoarthritis 03/27/2013 01/09/2020 Right flank pain 02/24/2010 04/14/2013 Screening for malignant neoplasm of the cervix 1 05/31/2005 04/14/2013 PULM EMBOLISM/INFARCT NOS 12/26/20042013 [facility] - PAST MEDICAL HISTORY OF Overview: hypothyriod documented as of this encounter (statuses as of 09/01/2021) [facility] History of Past illness Narrative* Problem Noted Date Resolved Date Obesity, Class II, BMI 35-39.9 09/06/2018 1 Rotator cuff tear arthropathy, right 08/01/2018 01/09/2020 Acute pain of right shoulder 09/26/201705/2019 Pulmonary embolism on long-term anticoagulation therapy 04/25/2017 01/09/2020 Vitamin D deficiency 04/23/2017 04/25/2018 Hyperparathyroidism due to vitamin D deficiency 04/23/2017 04/25/2018 Anemia 01/31/2017 04/25/2018 Fracture of humerus, proximal, left, closed 07/0 12/201301/31/2017 Osteoarthritis 03/27/2013 01/09/2020 Right flank pain 02/24/2010 04/14/2013 Screening for malignant neoplasm of the cervix 1 05/31/2005 04/14/2013 PULM EMBOLISM/INFARCT NOS 12/26/20042013 [facility] - PAST MEDICAL HISTORY OF Overview: hypothyriod documented as of this encounter (statuses as of 09/02/2021) [facility] History of Past illness Narrative* Problem Noted Date Resolved Date Obesity, Class II, BMI 35-39.9 09/06/2018 1 Rotator cuff tear arthropathy, right 08/01/2018 01/09/2020 Acute pain of right shoulder 09/26/201705/2019 Pulmonary embolism on long-term anticoagulation therapy 04/25/2017 01/09/2020 Vitamin D deficiency 04/23/2017 04/25/2018 Hyperparathyroidism due to vitamin D deficiency 04/23/2017 04/25/2018 Anemia 01/31/2017 04/25/2018 Fracture of humerus, proximal, left, closed 07/0 12/201301/31/2017 Osteoarthritis 03/27/2013 01/09/2020 Right flank pain 02/24/2010 04/14/2013 Screening for malignant neoplasm of the cervix 1 05/31/2005 04/14/2013 PULM EMBOLISM/INFARCT NOS 12/26/20042013 [facility] - PAST MEDICAL HISTORY OF Overview: hypothyriod documented as of this encounter (statuses as of 09/14/2021) [facility] History of Past illness Narrative* Problem Noted Date Resolved Date Obesity, Class II, BMI 35-39.9 09/06/2018 1 Rotator cuff tear arthropathy, right 08/01/2018 01/09/2020 Acute pain of right shoulder 09/26/201705/2019 Pulmonary embolism on long-term anticoagulation therapy 04/25/2017 01/09/2020 Vitamin D deficiency 04/23/2017 04/25/2018 Hyperparathyroidism due to vitamin D deficiency 04/23/2017 04/25/2018 Anemia 01/31/2017 04/25/2018 Fracture of humerus, proximal, left, closed 07/0 12/201301/31/2017 Osteoarthritis 03/27/2013 01/09/2020 Right flank pain 02/24/2010 04/14/2013 Screening for malignant neoplasm of the cervix 1 05/31/2005 04/14/2013 PULM EMBOLISM/INFARCT NOS 12/26/20042013 [facility] - PAST MEDICAL HISTORY OF Overview: hypothyriod documented as of this encounter (statuses as of 09/28/2021) [facility] History of Past illness Narrative* Problem Noted Date Resolved Date Obesity, Class II, BMI 35-39.9 09/06/2018 1 Rotator cuff tear arthropathy, right 08/01/2018 01/09/2020 Acute pain of right shoulder 09/26/201705/2019 Pulmonary embolism on long-term anticoagulation therapy 04/25/2017 01/09/2020 Vitamin D deficiency 04/23/2017 04/25/2018 Hyperparathyroidism due to vitamin D deficiency 04/23/2017 04/25/2018 Anemia 01/31/2017 04/25/2018 Fracture of humerus, proximal, left, closed 07/0 12/201301/31/2017 Osteoarthritis 03/27/2013 01/09/2020 Right flank pain 02/24/2010 04/14/2013 Screening for malignant neoplasm of the cervix 1 05/31/2005 04/14/2013 PULM EMBOLISM/INFARCT NOS 12/26/20042013 [facility] - PAST MEDICAL HISTORY OF Overview: hypothyriod documented as of this encounter (statuses as of 10/05/2021) [facility] History of Past illness Narrative* Problem Noted Date Resolved Date Obesity, Class II, BMI 35-39.9 09/06/2018 1 Rotator cuff tear arthropathy, right 08/01/2018 01/09/2020 Acute pain of right shoulder 09/26/201705/2019 Pulmonary embolism on long-term anticoagulation therapy 04/25/2017 01/09/2020 Vitamin D deficiency 04/23/2017 04/25/2018 Hyperparathyroidism due to vitamin D deficiency 04/23/2017 04/25/2018 Anemia 01/31/2017 04/25/2018 Fracture of humerus, proximal, left, closed 07/0 12/201301/31/2017 Osteoarthritis 03/27/2013 01/09/2020 Right flank pain 02/24/2010 04/14/2013 Screening for malignant neoplasm of the cervix 1 05/31/2005 04/14/2013 PULM EMBOLISM/INFARCT NOS 12/26/20042013 [facility] - PAST MEDICAL HISTORY OF Overview: hypothyriod documented as of this encounter (statuses as of 10/05/2021) [facility] History of Past illness Narrative* Problem Noted Date Resolved Date Obesity, Class II, BMI 35-39.9 09/06/2018 1 Rotator cuff tear arthropathy, right 08/01/2018 01/09/2020 Acute pain of right shoulder 09/26/201705/2019 Pulmonary embolism on long-term anticoagulation therapy 04/25/2017 01/09/2020 Vitamin D deficiency 04/23/2017 04/25/2018 Hyperparathyroidism due to vitamin D deficiency 04/23/2017 04/25/2018 Anemia 01/31/2017 04/25/2018 Fracture of humerus, proximal, left, closed 07/0 12/201301/31/2017 Osteoarthritis 03/27/2013 01/09/2020 Right flank pain 02/24/2010 04/14/2013 Screening for malignant neoplasm of the cervix 1 05/31/2005 04/14/2013 PULM EMBOLISM/INFARCT NOS 12/26/20042013 [facility] - PAST MEDICAL HISTORY OF Overview: hypothyriod documented as of this encounter (statuses as of 10/05/2021) [facility] History of Past illness Narrative* Problem Noted Date Resolved Date Obesity, Class II, BMI 35-39.9 09/06/2018 1 Rotator cuff tear arthropathy, right 08/01/2018 01/09/2020 Acute pain of right shoulder 09/26/201705/2019 Pulmonary embolism on long-term anticoagulation therapy 04/25/2017 01/09/2020 Vitamin D deficiency 04/23/2017 04/25/2018 Hyperparathyroidism due to vitamin D deficiency 04/23/2017 04/25/2018 Anemia 01/31/2017 04/25/2018 Fracture of humerus, proximal, left, closed 07/0 12/201301/31/2017 Osteoarthritis 03/27/2013 01/09/2020 Right flank pain 02/24/2010 04/14/2013 Screening for malignant neoplasm of the cervix 1 05/31/2005 04/14/2013 PULM EMBOLISM/INFARCT NOS 12/26/20042013 [facility] - PAST MEDICAL HISTORY OF Overview: hypothyriod documented as of this encounter (statuses as of 10/12/2021) [facility] History of Past illness Narrative* Problem Noted Date Resolved Date Obesity, Class II, BMI 35-39.9 09/06/2018 1 Rotator cuff tear arthropathy, right 08/01/2018 01/09/2020 Acute pain of right shoulder 09/26/201705/2019 Pulmonary embolism on long-term anticoagulation therapy 04/25/2017 01/09/2020 Vitamin D deficiency 04/23/2017 04/25/2018 Hyperparathyroidism due to vitamin D deficiency 04/23/2017 04/25/2018 Anemia 01/31/2017 04/25/2018 Fracture of humerus, proximal, left, closed 07/0 12/201301/31/2017 Osteoarthritis 03/27/2013 01/09/2020 Right flank pain 02/24/2010 04/14/2013 Screening for malignant neoplasm of the cervix 1 05/31/2005 04/14/2013 PULM EMBOLISM/INFARCT NOS 12/26/20042013 [facility] - PAST MEDICAL HISTORY OF Overview: hypothyriod documented as of this encounter (statuses as of 10/22/2021) [facility] History of Past illness Narrative* Problem Noted Date Resolved Date Obesity, Class II, BMI 35-39.9 09/06/2018 1 Rotator cuff tear arthropathy, right 08/01/2018 01/09/2020 Acute pain of right shoulder 09/26/201705/2019 Pulmonary embolism on long-term anticoagulation therapy 04/25/2017 01/09/2020 Vitamin D deficiency 04/23/2017 04/25/2018 Hyperparathyroidism due to vitamin D deficiency 04/23/2017 04/25/2018 Anemia 01/31/2017 04/25/2018 Fracture of humerus, proximal, left, closed 07/0 12/201301/31/2017 Osteoarthritis 03/27/2013 01/09/2020 Right flank pain 02/24/2010 04/14/2013 Screening for malignant neoplasm of the cervix 1 05/31/2005 04/14/2013 PULM EMBOLISM/INFARCT NOS 12/26/20042013 [facility] - PAST MEDICAL HISTORY OF Overview: hypothyriod documented as of this encounter (statuses as of 10/25/2021) [facility] History of Past illness Narrative* Problem Noted Date Resolved Date Obesity, Class II, BMI 35-39.9 09/06/2018 1 Rotator cuff tear arthropathy, right 08/01/2018 01/09/2020 Acute pain of right shoulder 09/26/201705/2019 Pulmonary embolism on long-term anticoagulation therapy 04/25/2017 01/09/2020 Vitamin D deficiency 04/23/2017 04/25/2018 Hyperparathyroidism due to vitamin D deficiency 04/23/2017 04/25/2018 Anemia 01/31/2017 04/25/2018 Fracture of humerus, proximal, left, closed 12/201301/31/2017 Osteoarthritis 03/27/2013 01/09/2020 Right flank pain 02/24/2010 04/14/2013 Screening for malignant neoplasm of the cervix 1 05/31/2005 04/14/2013 PULM EMBOLISM/INFARCT NOS 12/26/20042013 [facility] - PAST MEDICAL HISTORY OF Overview: hypothyriod documented as of this encounter (statuses as of 11/02/2021) [facility] History of Past illness Narrative* Problem Noted Date Resolved Date Obesity, Class II, BMI 35-39.9 09/06/2018 1 Rotator cuff tear arthropathy, right 08/01/2018 01/09/2020 Acute pain of right shoulder 09/26/201705/2019 Pulmonary embolism on long-term anticoagulation therapy 04/25/2017 01/09/2020 Vitamin D deficiency 04/23/2017 04/25/2018 Hyperparathyroidism due to vitamin D deficiency 04/23/2017 04/25/2018 Anemia 01/31/2017 04/25/2018 Fracture of humerus, proximal, left, closed 12/201301/31/2017 Osteoarthritis 03/27/2013 01/09/2020 Right flank pain 02/24/2010 04/14/2013 Screening for malignant neoplasm of the cervix 1 05/31/2005 04/14/2013 PULM EMBOLISM/INFARCT NOS 12/26/20042013 [facility] - PAST MEDICAL HISTORY OF Overview: hypothyriod documented as of this encounter (statuses as of 12/02/2021) [facility] of Past illness Narrative* Problem Noted Date Resolved Date Obesity, Class II, BMI 35-39.9 09/06/2018 1 Rotator cuff tear arthropathy, right 08/01/2018 01/09/2020 Acute pain of right shoulder 09/26/201705/2019 Pulmonary embolism on long-term anticoagulation therapy 04/25/2017 01/09/2020 Vitamin D deficiency 04/23/2017 04/25/2018 Hyperparathyroidism due to vitamin D deficiency 04/23/2017 04/25/2018 Anemia 01/31/2017 04/25/2018 Fracture of humerus, proximal, left, closed 07/12/201301/31/2017 Osteoarthritis 03/27/2013 01/09/2020 Right flank pain 02/24/2010 04/14/2013 Screening for malignant neoplasm of the cervix 1 05/31/2005 04/14/2013 PULM EMBOLISM/INFARCT NOS 12/26/20042013 [facility] - PAST MEDICAL HISTORY OF Overview: hypothyriod documented as of this encounter (statuses as of 12/06/2021) [facility] of Past illness Narrative* Problem Noted Date Resolved Date Obesity, Class II, BMI 35-39.9 09/06/2018 1 Rotator cuff tear arthropathy, right 08/01/2018 01/09/2020 Acute pain of right shoulder 09/26/201705/2019 Pulmonary embolism on long-term anticoagulation therapy 04/25/2017 01/09/2020 Vitamin D deficiency 04/23/2017 04/25/2018 Hyperparathyroidism due to vitamin D deficiency 04/23/2017 04/25/2018 Anemia 01/31/2017 04/25/2018 Fracture of humerus, proximal, left, closed 07/0 12/201301/31/2017 Osteoarthritis 03/27/2013 01/09/2020 Right flank pain 02/24/2010 04/14/2013 Screening for malignant neoplasm of the cervix 1 05/31/2005 04/14/2013 PULM EMBOLISM/INFARCT NOS 12/26/20042013 [facility] - PAST MEDICAL HISTORY OF Overview: hypothyriod documented as of this encounter (statuses as of 01/13/2022) [facility] of Past illness Narrative* Problem Noted Date Resolved Date Obesity, Class II, BMI 35-39.9 09/06/2018 1 Rotator cuff tear arthropathy, right 08/01/2018 01/09/2020 Acute pain of right shoulder 09/26/201705/2019 Pulmonary embolism on long-term anticoagulation therapy 04/25/2017 01/09/2020 Vitamin D deficiency 04/23/2017 04/25/2018 Hyperparathyroidism due to vitamin D deficiency 04/23/2017 04/25/2018 Anemia 01/31/2017 04/25/2018 Fracture of humerus, proximal, left, closed 07/0 12/201301/31/2017 Osteoarthritis 03/27/2013 01/09/2020 Right flank pain 02/24/2010 04/14/2013 Screening for malignant neoplasm of the cervix 1 05/31/2005 04/14/2013 PULM EMBOLISM/INFARCT NOS 12/26/20042013 [facility] - PAST MEDICAL HISTORY OF Overview: hypothyriod documented as of this encounter (statuses as of 01/20/2022) [facility] of Past illness Narrative* Problem Noted Date Resolved Date Obesity, Class II, BMI 35-39.9 09/06/2018 1 Rotator cuff tear arthropathy, right 08/01/2018 01/09/2020 Acute pain of right shoulder 09/26/201705/2019 Pulmonary embolism on long-term anticoagulation therapy 04/25/2017 01/09/2020 Vitamin D deficiency 04/23/2017 04/25/2018 Hyperparathyroidism due to vitamin D deficiency 04/23/2017 04/25/2018 Anemia 01/31/2017 04/25/2018 Fracture of humerus, proximal, left, closed 07/0 12/201301/31/2017 Osteoarthritis 03/27/2013 01/09/2020 Right flank pain 02/24/2010 04/14/2013 Screening for malignant neoplasm of the cervix 1 05/31/2005 04/14/2013 PULM EMBOLISM/INFARCT NOS 12/26/20042013 [facility] - PAST MEDICAL HISTORY OF Overview: hypothyriod documented as of this encounter (statuses as of 01/27/2022) [facility] of Past illness Narrative* Problem Noted Date Resolved Date Obesity, Class II, BMI 35-39.9 09/06/2018 1 Rotator cuff tear arthropathy, right 08/01/2018 01/09/2020 Acute pain of right shoulder 09/26/201705/2019 Pulmonary embolism on long-term anticoagulation therapy 04/25/2017 01/09/2020 Vitamin D deficiency 04/23/2017 04/25/2018 Hyperparathyroidism due to vitamin D deficiency 04/23/2017 04/25/2018 Anemia 01/31/2017 04/25/2018 Fracture of humerus, proximal, left, closed 07/0 12/201301/31/2017 Osteoarthritis 03/27/2013 01/09/2020 Right flank pain 02/24/2010 04/14/2013 Screening for malignant neoplasm of the cervix 1 05/31/2005 04/14/2013 PULM EMBOLISM/INFARCT NOS 12/26/20042013 [facility] - PAST MEDICAL HISTORY OF Overview: hypothyriod documented as of this encounter (statuses as of 02/03/2022) [facility] Past illness Narrative* Problem Noted Date Resolved Date Obesity, Class II, BMI 35-39.9 09/06/2018 1 Rotator cuff tear arthropathy, right 08/01/2018 01/09/2020 Acute pain of right shoulder 09/26/201705/2019 Pulmonary embolism on long-term anticoagulation therapy 04/25/2017 01/09/2020 Vitamin D deficiency 04/23/2017 04/25/2018 Hyperparathyroidism due to vitamin D deficiency 04/23/2017 04/25/2018 Anemia 01/31/2017 04/25/2018 Fracture of humerus, proximal, left, closed 07/0 12/201301/31/2017 Osteoarthritis 03/27/2013 01/09/2020 Right flank pain 02/24/2010 04/14/2013 Screening for malignant neoplasm of the cervix 1 05/31/2005 04/14/2013 PULM EMBOLISM/INFARCT NOS 12/26/20042013 PMH - PAST MEDICAL HISTORY OF Overview: hypothyriod documented as of this encounter (statuses as of 02/10/2022) [facility] History of Past illness Narrative* Problem Noted Date Resolved Date Obesity, Class II, BMI 35-39.9 09/06/2018 1 Rotator cuff tear arthropathy, right 08/01/2018 01/09/2020 Acute pain of right shoulder 09/26/201705/2019 Pulmonary embolism on long-term anticoagulation therapy 04/25/2017 01/09/2020 Vitamin D deficiency 04/23/2017 04/25/2018 Hyperparathyroidism due to vitamin D deficiency 04/23/2017 04/25/2018 Anemia 01/31/2017 04/25/2018 Fracture of humerus, proximal, left, closed 07/0 12/201301/31/2017 Osteoarthritis 03/27/2013 01/09/2020 Right flank pain 02/24/2010 04/14/2013 Screening for malignant neoplasm of the cervix 1 05/31/2005 04/14/2013 PULM EMBOLISM/INFARCT NOS 12/26/20042013 PMH - PAST MEDICAL HISTORY OF Overview: hypothyriod documented as of this encounter (statuses as of 02/17/2022) [facility] History of Past illness Narrative* Problem Noted Date Resolved Date Obesity, Class II, BMI 35-39.9 09/06/2018 1 Rotator cuff tear arthropathy, right 08/01/2018 01/09/2020 Acute pain of right shoulder 09/26/201705/2019 Pulmonary embolism on long-term anticoagulation therapy 04/25/2017 01/09/2020 Vitamin D deficiency 04/23/2017 04/25/2018 Hyperparathyroidism due to vitamin D deficiency 04/23/2017 04/25/2018 Anemia 01/31/2017 04/25/2018 Fracture of humerus, proximal, left, closed 07/0 12/201301/31/2017 Osteoarthritis 03/27/2013 01/09/2020 Right flank pain 02/24/2010 04/14/2013 Screening for malignant neoplasm of the cervix 1 05/31/2005 04/14/2013 PULM EMBOLISM/INFARCT NOS 12/26/20042013 PMH - PAST MEDICAL HISTORY OF Overview: hypothyriod documented as of this encounter (statuses as of 02/23/2022) [facility] History of Past illness Narrative* Problem Noted Date Resolved Date Obesity, Class II, BMI 35-39.9 09/06/2018 1 Rotator cuff tear arthropathy, right 08/01/2018 01/09/2020 Acute pain of right shoulder 09/26/201705/2019 Pulmonary embolism on long-term anticoagulation therapy 04/25/2017 01/09/2020 Vitamin D deficiency 04/23/2017 04/25/2018 Hyperparathyroidism due to vitamin D deficiency 04/23/2017 04/25/2018 Anemia 01/31/2017 04/25/2018 Fracture of humerus, proximal, left, closed 07/0 12/201301/31/2017 Osteoarthritis 03/27/2013 01/09/2020 Right flank pain 02/24/2010 04/14/2013 Screening for malignant neoplasm of the cervix 1 05/31/2005 04/14/2013 PULM EMBOLISM/INFARCT NOS 12/26/20042013 PMH - PAST MEDICAL HISTORY OF Overview: hypothyriod documented as of this encounter (statuses as of 03/03/2022) [facility] History of Past illness Narrative* Problem Noted Date Resolved Date Obesity, Class II, BMI 35-39.9 09/06/2018 1 Rotator cuff tear arthropathy, right 08/01/2018 01/09/2020 Acute pain of right shoulder 09/26/201705/2019 Pulmonary embolism on long-term anticoagulation therapy 04/25/2017 01/09/2020 Vitamin D deficiency 04/23/2017 04/25/2018 Hyperparathyroidism due to vitamin D deficiency 04/23/2017 04/25/2018 Anemia 01/31/2017 04/25/2018 Fracture of humerus, proximal, left, closed 07/0 12/201301/31/2017 Osteoarthritis 03/27/2013 01/09/2020 Right flank pain 02/24/2010 04/14/2013 Screening for malignant neoplasm of the cervix 1 05/31/2005 04/14/2013 PULM EMBOLISM/INFARCT NOS 12/26/20042013 PMH - PAST MEDICAL HISTORY OF Overview: hypothyriod documented as of this encounter (statuses as of 03/09/2022) [facility] History of Past illness Narrative* Problem Noted Date Resolved Date Obesity, Class II, BMI 35-39.9 09/06/2018 1 Rotator cuff tear arthropathy, right 08/01/2018 01/09/2020 Acute pain of right shoulder 09/26/201705/2019 Pulmonary embolism on long-term anticoagulation therapy 04/25/2017 01/09/2020 Vitamin D deficiency 04/23/2017 04/25/2018 Hyperparathyroidism due to vitamin D deficiency 04/23/2017 04/25/2018 Anemia 01/31/2017 04/25/2018 Fracture of humerus, proximal, left, closed 07/0 12/201301/31/2017 Osteoarthritis 03/27/2013 01/09/2020 Right flank pain 02/24/2010 04/14/2013 Screening for malignant neoplasm of the cervix 1 05/31/2005 04/14/2013 PULM EMBOLISM/INFARCT NOS 12/26/20042013 PMH - PAST MEDICAL HISTORY OF Overview: hypothyriod documented as of this encounter (statuses as of 03/13/2022) [facility] History of Past illness Narrative* Problem Noted Date Resolved Date Obesity, Class II, BMI 35-39.9 09/06/2018 1 Rotator cuff tear arthropathy, right 08/01/2018 01/09/2020 Acute pain of right shoulder 09/26/201705/2019 Pulmonary embolism on long-term anticoagulation therapy 04/25/2017 01/09/2020 Vitamin D deficiency 04/23/2017 04/25/2018 Hyperparathyroidism due to vitamin D deficiency 04/23/2017 04/25/2018 Anemia 01/31/2017 04/25/2018 Fracture of humerus, proximal, left, closed 07/0 12/201301/31/2017 Osteoarthritis 03/27/2013 01/09/2020 Right flank pain 02/24/2010 04/14/2013 Screening for malignant neoplasm of the cervix 1 05/31/2005 04/14/2013 PULM EMBOLISM/INFARCT NOS 12/26/20042013 PMH - PAST MEDICAL HISTORY OF Overview: hypothyriod documented as of this encounter (statuses as of 03/16/2022) [facility] History of Past illness Narrative* Problem Noted Date Resolved Date Obesity, Class II, BMI 35-39.9 09/06/2018 1 Rotator cuff tear arthropathy, right 08/01/2018 01/09/2020 Acute pain of right shoulder 09/26/201705/2019 Pulmonary embolism on long-term anticoagulation therapy 04/25/2017 01/09/2020 Vitamin D deficiency 04/23/2017 04/25/2018 Hyperparathyroidism due to vitamin D deficiency 04/23/2017 04/25/2018 Anemia 01/31/2017 04/25/2018 Fracture of humerus, proximal, left, closed 07/0 12/201301/31/2017 Osteoarthritis 03/27/2013 01/09/2020 Right flank pain 02/24/2010 04/14/2013 Screening for malignant neoplasm of the cervix 1 05/31/2005 04/14/2013 PULM EMBOLISM/INFARCT NOS 12/26/20042013 PMH - PAST MEDICAL HISTORY OF Overview: hypothyriod documented as of this encounter (statuses as of 03/23/2022) [facility] History of Past illness Narrative* Problem Noted Date Resolved Date Obesity, Class II, BMI 35-39.9 09/06/2018 1 Rotator cuff tear arthropathy, right 08/01/2018 01/09/2020 Acute pain of right shoulder 09/26/201705/2019 Pulmonary embolism on long-term anticoagulation therapy 04/25/2017 01/09/2020 Vitamin D deficiency 04/23/2017 04/25/2018 Hyperparathyroidism due to vitamin D deficiency 04/23/2017 04/25/2018 Anemia 01/31/2017 04/25/2018 Fracture of humerus, proximal, left, closed 07/0 12/201301/31/2017 Osteoarthritis 03/27/2013 01/09/2020 Right flank pain 02/24/2010 04/14/2013 Screening for malignant neoplasm of the cervix 1 05/31/2005 04/14/2013 PULM EMBOLISM/INFARCT NOS 12/26/20042013 PMH - PAST MEDICAL HISTORY OF Overview: hypothyriod documented as of this encounter (statuses as of 03/31/2022) [facility] History of Past illness Narrative* Problem Noted Date Resolved Date Obesity, Class II, BMI 35-39.9 09/06/2018 1 Rotator cuff tear arthropathy, right 08/01/2018 01/09/2020 Acute pain of right shoulder 09/26/201705/2019 Pulmonary embolism on long-term anticoagulation therapy 04/25/2017 01/09/2020 Vitamin D deficiency 04/23/2017 04/25/2018 Hyperparathyroidism due to vitamin D deficiency 04/23/2017 04/25/2018 Anemia 01/31/2017 04/25/2018 Fracture of humerus, proximal, left, closed 07/0 12/201301/31/2017 Osteoarthritis 03/27/2013 01/09/2020 Right flank pain 02/24/2010 04/14/2013 Screening for malignant neoplasm of the cervix 1 05/31/2005 04/14/2013 PULM EMBOLISM/INFARCT NOS 12/26/20042013 PMH - PAST MEDICAL HISTORY OF Overview: hypothyriod documented as of this encounter (statuses as of 04/12/2022) [facility] History of Past illness Narrative* Problem Noted Date Resolved Date Obesity, Class II, BMI 35-39.9 09/06/2018 1 Rotator cuff tear arthropathy, right 08/01/2018 01/09/2020 Acute pain of right shoulder 09/26/201705/2019 Pulmonary embolism on long-term anticoagulation therapy 04/25/2017 01/09/2020 Vitamin D deficiency 04/23/2017 04/25/2018 Hyperparathyroidism due to vitamin D deficiency 04/23/2017 04/25/2018 Anemia 01/31/2017 04/25/2018 Fracture of humerus, proximal, left, closed 07/0 12/201301/31/2017 Osteoarthritis 03/27/2013 01/09/2020 Right flank pain 02/24/2010 04/14/2013 Screening for malignant neoplasm of the cervix 1 05/31/2005 04/14/2013 PULM EMBOLISM/INFARCT NOS 12/26/20042013 PMH - PAST MEDICAL HISTORY OF Overview: hypothyriod documented as of this encounter (statuses as of 04/21/2022) [facility] History of Past illness Narrative* Problem Noted Date Resolved Date Obesity, Class II, BMI 35-39.9 09/06/2018 1 Rotator cuff tear arthropathy, right 08/01/2018 01/09/2020 Acute pain of right shoulder 09/26/201705/2019 Pulmonary embolism on long-term anticoagulation therapy 04/25/2017 01/09/2020 Vitamin D deficiency 04/23/2017 04/25/2018 Hyperparathyroidism due to vitamin D deficiency 04/23/2017 04/25/2018 Anemia 01/31/2017 04/25/2018 Fracture of humerus, proximal, left, closed 07/0 12/201301/31/2017 Osteoarthritis 03/27/2013 01/09/2020 Right flank pain 02/24/2010 04/14/2013 Screening for malignant neoplasm of the cervix 1 05/31/2005 04/14/2013 PULM EMBOLISM/INFARCT NOS 12/26/20042013 PMH - PAST MEDICAL HISTORY OF Overview: hypothyriod documented as of this encounter (statuses as of 05/05/2022) [facility] History of Past illness Narrative* Problem Noted Date Resolved Date Obesity, Class II, BMI 35-39.9 09/06/2018 1 Rotator cuff tear arthropathy, right 08/01/2018 01/09/2020 Acute pain of right shoulder 09/26/201705/2019 Pulmonary embolism on long-term anticoagulation therapy 04/25/2017 01/09/2020 Vitamin D deficiency 04/23/2017 04/25/2018 Hyperparathyroidism due to vitamin D deficiency 04/23/2017 04/25/2018 Anemia 01/31/2017 04/25/2018 Fracture of humerus, proximal, left, closed 07/0 12/201301/31/2017 Osteoarthritis 03/27/2013 01/09/2020 Right flank pain 02/24/2010 04/14/2013 Screening for malignant neoplasm of the cervix 1 05/31/2005 04/14/2013 PULM EMBOLISM/INFARCT NOS 12/26/20042013 PMH - PAST MEDICAL HISTORY OF Overview: hypothyriod documented as of this encounter (statuses as of 05/05/2022) [facility] History of Past illness Narrative* Problem Noted Date Resolved Date Obesity, Class II, BMI 35-39.9 09/06/2018 1 Rotator cuff tear arthropathy, right 08/01/2018 01/09/2020 Acute pain of right shoulder 09/26/201705/2019 Pulmonary embolism on long-term anticoagulation therapy 04/25/2017 01/09/2020 Vitamin D deficiency 04/23/2017 04/25/2018 Hyperparathyroidism due to vitamin D deficiency 04/23/2017 04/25/2018 Anemia 01/31/2017 04/25/2018 Fracture of humerus, proximal, left, closed 07/0 12/201301/31/2017 Osteoarthritis 03/27/2013 01/09/2020 Right flank pain 02/24/2010 04/14/2013 Screening for malignant neoplasm of the cervix 1 05/31/2005 04/14/2013 PULM EMBOLISM/INFARCT NOS 12/26/20042013 PMH - PAST MEDICAL HISTORY OF Overview: hypothyriod documented as of this encounter (statuses as of 05/23/2022) [facility] History of Past illness Narrative* Problem Noted Date Resolved Date Obesity, Class II, BMI 35-39.9 09/06/2018 1 Rotator cuff tear arthropathy, right 08/01/2018 01/09/2020 Acute pain of right shoulder 09/26/201705/2019 Pulmonary embolism on long-term anticoagulation therapy 04/25/2017 01/09/2020 Vitamin D deficiency 04/23/2017 04/25/2018 Hyperparathyroidism due to vitamin D deficiency 04/23/2017 04/25/2018 Anemia 01/31/2017 04/25/2018 Fracture of humerus, proximal, left, closed 07/0 12/201301/31/2017 Osteoarthritis 03/27/2013 01/09/2020 Right flank pain 02/24/2010 04/14/2013 Screening for malignant neoplasm of the cervix 1 05/31/2005 04/14/2013 PULM EMBOLISM/INFARCT NOS 12/26/20042013 PMH - PAST MEDICAL HISTORY OF Overview: hypothyriod documented as of this encounter (statuses as of 05/24/2022) [facility] History of Past illness Narrative* Problem Noted Date Resolved Date Obesity, Class II, BMI 35-39.9 09/06/2018 1 Rotator cuff tear arthropathy, right 08/01/2018 01/09/2020 Acute pain of right shoulder 09/26/201705/2019 Pulmonary embolism on long-term anticoagulation therapy 04/25/2017 01/09/2020 Vitamin D deficiency 04/23/2017 04/25/2018 Hyperparathyroidism due to vitamin D deficiency 04/23/2017 04/25/2018 Anemia 01/31/2017 04/25/2018 Fracture of humerus, proximal, left, closed 07/0 12/201301/31/2017 Osteoarthritis 03/27/2013 01/09/2020 Right flank pain 02/24/2010 04/14/2013 Screening for malignant neoplasm of the cervix 1 05/31/2005 04/14/2013 PULM EMBOLISM/INFARCT NOS 12/26/20042013 PMH - PAST MEDICAL HISTORY OF Overview: hypothyriod documented as of this encounter (statuses as of 06/13/2022) [facility] History of Past illness Narrative* Problem Noted Date Resolved Date Obesity, Class II, BMI 35-39.9 09/06/2018 1 Rotator cuff tear arthropathy, right 08/01/2018 01/09/2020 Acute pain of right shoulder 09/26/201705/2019 Pulmonary embolism on long-term anticoagulation therapy 04/25/2017 01/09/2020 Vitamin D deficiency 04/23/2017 04/25/2018 Hyperparathyroidism due to vitamin D deficiency 04/23/2017 04/25/2018 Anemia 01/31/2017 04/25/2018 Fracture of humerus, proximal, left, closed 07/0 12/201301/31/2017 Osteoarthritis 03/27/2013 01/09/2020 Right flank pain 02/24/2010 04/14/2013 Screening for malignant neoplasm of the cervix 1 05/31/2005 04/14/2013 PULM EMBOLISM/INFARCT NOS 12/26/20042013 PMH - PAST MEDICAL HISTORY OF Overview: hypothyriod documented as of this encounter (statuses as of 06/30/2022) [facility] History of Past illness Narrative* Problem Noted Date Resolved Date Obesity, Class II, BMI 35-39.9 09/06/2018 1 Rotator cuff tear arthropathy, right 08/01/2018 01/09/2020 Acute pain of right shoulder 09/26/201705/2019 Pulmonary embolism on long-term anticoagulation therapy 04/25/2017 01/09/2020 Vitamin D deficiency 04/23/2017 04/25/2018 Hyperparathyroidism due to vitamin D deficiency 04/23/2017 04/25/2018 Anemia 01/31/2017 04/25/2018 Fracture of humerus, proximal, left, closed 07/0 12/201301/31/2017 Osteoarthritis 03/27/2013 01/09/2020 Right flank pain 02/24/2010 04/14/2013 Screening for malignant neoplasm of the cervix 1 05/31/2005 04/14/2013 PULM EMBOLISM/INFARCT NOS 12/26/20042013 PMH - PAST MEDICAL HISTORY OF Overview: hypothyriod documented as of this encounter (statuses as of 07/13/2022) [facility] History of Past illness Narrative* Problem Noted Date Resolved Date Obesity, Class II, BMI 35-39.9 09/06/2018 1 Rotator cuff tear arthropathy, right 08/01/2018 01/09/2020 Acute pain of right shoulder 09/26/201705/2019 Pulmonary embolism on long-term anticoagulation therapy 04/25/2017 01/09/2020 Vitamin D deficiency 04/23/2017 04/25/2018 Hyperparathyroidism due to vitamin D deficiency 04/23/2017 04/25/2018 Anemia 01/31/2017 04/25/2018 Fracture of humerus, proximal, left, closed 07/0 12/201301/31/2017 Osteoarthritis 03/27/2013 01/09/2020 Right flank pain 02/24/2010 04/14/2013 Screening for malignant neoplasm of the cervix 1 05/31/2005 04/14/2013 PULM EMBOLISM/INFARCT NOS 12/26/20042013 PMH - PAST MEDICAL HISTORY OF Overview: hypothyriod documented as of this encounter (statuses as of 08/01/2022) [facility] History of Past illness Narrative* Problem Noted Date Resolved Date Obesity, Class II, BMI 35-39.9 09/06/2018 1 Rotator cuff tear arthropathy, right 08/01/2018 01/09/2020 Acute pain of right shoulder 09/26/201705/2019 Pulmonary embolism on long-term anticoagulation therapy 04/25/2017 01/09/2020 Vitamin D deficiency 04/23/2017 04/25/2018 Hyperparathyroidism due to vitamin D deficiency 04/23/2017 04/25/2018 Anemia 01/31/2017 04/25/2018 Fracture of humerus, proximal, left, closed 07/0 12/201301/31/2017 Osteoarthritis 03/27/2013 01/09/2020 Right flank pain 02/24/2010 04/14/2013 Screening for malignant neoplasm of the cervix 1 05/31/2005 04/14/2013 PULM EMBOLISM/INFARCT NOS 12/26/20042013 PMH - PAST MEDICAL HISTORY OF Overview: hypothyriod documented as of this encounter (statuses as of 08/22/2022) [facility] History of Past illness Narrative* Problem Noted Date Resolved Date Obesity, Class II, BMI 35-39.9 09/06/2018 1 Rotator cuff tear arthropathy, right 08/01/2018 01/09/2020 Acute pain of right shoulder 09/26/201705/2019 Pulmonary embolism on long-term anticoagulation therapy 04/25/2017 01/09/2020 Vitamin D deficiency 04/23/2017 04/25/2018 Hyperparathyroidism due to vitamin D deficiency 04/23/2017 04/25/2018 Anemia 01/31/2017 04/25/2018 Fracture of humerus, proximal, left, closed 07/0 12/201301/31/2017 Osteoarthritis 03/27/2013 01/09/2020 Right flank pain 02/24/2010 04/14/2013 Screening for malignant neoplasm of the cervix 1 05/31/2005 04/14/2013 PULM EMBOLISM/INFARCT NOS 12/26/20042013 PMH - PAST MEDICAL HISTORY OF Overview: hypothyriod documented as of this encounter (statuses as of 09/13/2022) [facility] History of Past illness Narrative* Problem Noted Date Resolved Date Obesity, Class II, BMI 35-39.9 09/06/2018 1 Rotator cuff tear arthropathy, right 08/01/2018 01/09/2020 Acute pain of right shoulder 09/26/201705/2019 Pulmonary embolism on long-term anticoagulation therapy 04/25/2017 01/09/2020 Vitamin D deficiency 04/23/2017 04/25/2018 Hyperparathyroidism due to vitamin D deficiency 04/23/2017 04/25/2018 Anemia 01/31/2017 04/25/2018 Fracture of humerus, proximal, left, closed 07/0 12/201301/31/2017 Osteoarthritis 03/27/2013 01/09/2020 Right flank pain 02/24/2010 04/14/2013 Screening for malignant neoplasm of the cervix 1 05/31/2005 04/14/2013 PULM EMBOLISM/INFARCT NOS 12/26/20042013 PMH - PAST MEDICAL HISTORY OF Overview: hypothyriod documented as of this encounter (statuses as of 10/02/2022) [facility] History of Past illness Narrative* Problem Noted Date Diagnosed Date Resolved Date Obesity, Class II, BMI 35-39.9 09/06/2018 01/09/2020 Rotator cuff tear arthropathy, right 08/01/2018 01/09/2020 Acute pain of right shoulder 09/26/2017 01/09/2020 Pulmonary embolism on long-t erm anticoagulation therapy 04/25/2017 01/09/2020 Vitamin D deficiency 04/23/2017 019 Hyperparathyroidism due to v itamin D deficiency 04/23/2017 04/25/2018 Anemia 01/31/2017 04/25/2018 Fracture of humerus, proximal, left, closed 10/15/2013 01/31/2017 Osteoarthritis 03/27/2013 01/09/2020 Right flank pain 02/24/2010 04/14/2013 Screening for malignant neop lasm of the cervix 03/30/2006 04/14/2013 PULM EMBOLISM/INFARCT NOS 12/26/2004 PMH - PAST MEDICAL HISTORY OF 01/09/2020 Overview: hypothyriod documented as of this encounter (statuses as of 11/10/2022) [facility] of Past illness Narrative* Problem Noted Date Diagnosed Date Resolved Date Obesity, Class II, BMI 35-39.9 09/06/2018 01/09/2020 Rotator cuff tear arthropathy, right 08/01/2018 01/09/2020 Acute pain of right shoulder 09/26/2017 01/09/2020 Pulmonary embolism on long-t erm anticoagulation therapy 04/25/2017 01/09/2020 Vitamin D deficiency 04/23/2017 019 Hyperparathyroidism due to v itamin D deficiency 04/23/2017 04/25/2018 Anemia 01/31/2017 04/25/2018 Fracture of humerus, proximal, left, closed 10/15/2013 01/31/2017 Osteoarthritis 03/27/2013 01/09/2020 Right flank pain 02/24/2010 04/14/2013 Screening for malignant neop lasm of the cervix 03/30/2006 04/14/2013 PULM EMBOLISM/INFARCT NOS 12/26/2004 PMH - PAST MEDICAL HISTORY OF 01/09/2020 Overview: hypothyriod documented as of this encounter (statuses as of 11/22/2022) [facility] History of Past illness Narrative* Problem Noted Date Diagnosed Date Resolved Date Obesity, Class II, BMI 35-39.9 09/06/2018 01/09/2020 Rotator cuff tear arthropathy, right 08/01/2018 01/09/2020 Acute pain of right shoulder 09/26/2017 01/09/2020 Pulmonary embolism on long-t erm anticoagulation therapy 04/25/2017 01/09/2020 Vitamin D deficiency 04/23/2017 019 Hyperparathyroidism due to v itamin D deficiency 04/23/2017 04/25/2018 Anemia 01/31/2017 04/25/2018 Fracture of humerus, proximal, left, closed 10/15/2013 01/31/2017 Osteoarthritis 03/27/2013 01/09/2020 Right flank pain 02/24/2010 04/14/2013 Screening for malignant neop lasm of the cervix 03/30/2006 04/14/2013 PULM EMBOLISM/INFARCT NOS 12/26/2004 PMH - PAST MEDICAL HISTORY OF 01/09/2020 Overview: hypothyriod documented as of this encounter (statuses as of 11/28/2022) [facility] History of Past illness Narrative* Problem Noted Date Diagnosed Date Resolved Date Obesity, Class II, BMI 35-39.9 09/06/2018 01/09/2020 Rotator cuff tear arthropathy, right 08/01/2018 01/09/2020 Acute pain of right shoulder 09/26/2017 01/09/2020 Pulmonary embolism on long-t erm anticoagulation therapy 04/25/2017 01/09/2020 Vitamin D deficiency 04/23/2017 019 Hyperparathyroidism due to v itamin D deficiency 04/23/2017 04/25/2018 Anemia 01/31/2017 04/25/2018 Fracture of humerus, proximal, left, closed 10/15/2013 01/31/2017 Osteoarthritis 03/27/2013 01/09/2020 Right flank pain 02/24/2010 04/14/2013 Screening for malignant neop lasm of the cervix 03/30/2006 04/14/2013 PULM EMBOLISM/INFARCT NOS 12/26/2004 PMH - PAST MEDICAL HISTORY OF 01/09/2020 Overview: hypothyriod documented as of this encounter (statuses as of 12/12/2022) [facility] History of Past illness Narrative* Problem Noted Date Diagnosed Date Resolved Date Obesity, Class II, BMI 35-39.9 09/06/2018 01/09/2020 Rotator cuff tear arthropathy, right 08/01/2018 01/09/2020 Acute pain of right shoulder 09/26/2017 01/09/2020 Pulmonary embolism on long-t erm anticoagulation therapy 04/25/2017 01/09/2020 Vitamin D deficiency 04/23/2017 019 Hyperparathyroidism due to v itamin D deficiency 04/23/2017 04/25/2018 Anemia 01/31/2017 04/25/2018 Fracture of humerus, proximal, left, closed 10/15/2013 01/31/2017 Osteoarthritis 03/27/2013 01/09/2020 Right flank pain 02/24/2010 04/14/2013 Screening for malignant neop lasm of the cervix 03/30/2006 04/14/2013 PULM EMBOLISM/INFARCT NOS 12/26/2004 PMH - PAST MEDICAL HISTORY OF 01/09/2020 Overview: hypothyriod documented as of this encounter (statuses as of 12/14/2022) [facility] History of Past illness Narrative* Problem Noted Date Diagnosed Date Resolved Date Obesity, Class II, BMI 35-39.9 09/06/2018 01/09/2020 Rotator cuff tear arthropathy, right 08/01/2018 01/09/2020 Acute pain of right shoulder 09/26/2017 01/09/2020 Pulmonary embolism on long-t erm anticoagulation therapy 04/25/2017 01/09/2020 Vitamin D deficiency 04/23/2017 019 Hyperparathyroidism due to v itamin D deficiency 04/23/2017 04/25/2018 Anemia 01/31/2017 04/25/2018 Fracture of humerus, proximal, left, closed 10/15/2013 01/31/2017 Osteoarthritis 03/27/2013 01/09/2020 Right flank pain 02/24/2010 04/14/2013 Screening for malignant neop lasm of the cervix 03/30/2006 04/14/2013 PULM EMBOLISM/INFARCT NOS 12/26/2004 PMH - PAST MEDICAL HISTORY OF 01/09/2020 Overview: hypothyriod documented as of this encounter (statuses as of 12/21/2022) [facility] History of Past illness Narrative* Problem Noted Date Diagnosed Date Resolved Date Obesity, Class II, BMI 35-39.9 09/06/2018 01/09/2020 Rotator cuff tear arthropathy, right 08/01/2018 01/09/2020 Acute pain of right shoulder 09/26/2017 01/09/2020 Pulmonary embolism on long-t erm anticoagulation therapy 04/25/2017 01/09/2020 Vitamin D deficiency 04/23/2017 019 Hyperparathyroidism due to v itamin D deficiency 04/23/2017 04/25/2018 Anemia 01/31/2017 04/25/2018 Fracture of humerus, proximal, left, closed 10/15/2013 01/31/2017 Osteoarthritis 03/27/2013 01/09/2020 Right flank pain 02/24/2010 04/14/2013 Screening for malignant neop lasm of the cervix 03/30/2006 04/14/2013 PULM EMBOLISM/INFARCT NOS 12/26/2004 PMH - PAST MEDICAL HISTORY OF 01/09/2020 Overview: hypothyriod documented as of this encounter (statuses as of 01/06/2023) [facility] History of Past illness Narrative* Problem Noted Date Diagnosed Date Resolved Date Obesity, Class II, BMI 35-39.9 09/06/2018 01/09/2020 Rotator cuff tear arthropathy, right 08/01/2018 01/09/2020 Acute pain of right shoulder 09/26/2017 01/09/2020 Pulmonary embolism on long-t erm anticoagulation therapy (HCC) 04/25/2017 01/09/2020 Vitamin D deficiency 04/23/2017 019 Hyperparathyroidism due to v itamin D deficiency 04/23/2017 04/25/2018 Anemia 01/31/2017 04/25/2018 Fracture of humerus, proximal, left, closed 10/15/2013 01/31/2017 Osteoarthritis 03/27/2013 01/09/2020 Right flank pain 02/24/2010 04/14/2013 Screening for malignant neop lasm of the cervix 03/30/2006 04/14/2013 PULM EMBOLISM/INFARCT NOS 12/26/2004 PMH - PAST MEDICAL HISTORY OF 01/09/2020 Overview: hypothyriod documented as of this encounter (statuses as of 01/19/2023) [facility] History of Past illness Narrative* Problem Noted Date Diagnosed Date Resolved Date Obesity, Class II, BMI 35-39.9 09/06/2018 01/09/2020 Rotator cuff tear arthropathy, right 08/01/2018 01/09/2020 Acute pain of right shoulder 09/26/2017 01/09/2020 Pulmonary embolism on long-t erm anticoagulation therapy (HCC) 04/25/2017 01/09/2020 Vitamin D deficiency 04/23/2017 019 Hyperparathyroidism due to v itamin D deficiency 04/23/2017 04/25/2018 Anemia 01/31/2017 04/25/2018 Fracture of humerus, proximal, left, closed 10/15/2013 01/31/2017 Osteoarthritis 03/27/2013 01/09/2020 Right flank pain 02/24/2010 04/14/2013 Screening for malignant neop lasm of the cervix 03/30/2006 04/14/2013 PULM EMBOLISM/INFARCT NOS 12/26/2004 PMH - PAST MEDICAL HISTORY OF 01/09/2020 Overview: hypothyriod documented as of this encounter (statuses as of 02/01/2023) [facility] History of Past illness Narrative* Problem Noted Date Diagnosed Date Resolved Date Obesity, Class II, BMI 35-39.9 09/06/2018 01/09/2020 Rotator cuff tear arthropathy, right 08/01/2018 01/09/2020 Acute pain of right shoulder 09/26/2017 01/09/2020 Pulmonary embolism on long-t erm anticoagulation therapy 04/25/2017 01/09/2020 Vitamin D deficiency 04/23/2017 019 Hyperparathyroidism due to v itamin D deficiency 04/23/2017 04/25/2018 Anemia 01/31/2017 04/25/2018 Fracture of humerus, proximal, left, closed 10/15/2013 01/31/2017 Osteoarthritis 03/27/2013 01/09/2020 Right flank pain 02/24/2010 04/14/2013 Screening for malignant neop lasm of the cervix 03/30/2006 04/14/2013 PULM EMBOLISM/INFARCT NOS 12/26/2004 PMH - PAST MEDICAL HISTORY OF 01/09/2020 Overview: hypothyriod documented as of this encounter (statuses as of 02/11/2023) [facility] History of Past illness Narrative* Problem Noted Date Diagnosed Date Resolved Date Obesity, Class II, BMI 35-39.9 09/06/2018 01/09/2020 Rotator cuff tear arthropathy, right 08/01/2018 01/09/2020 Acute pain of right shoulder 09/26/2017 01/09/2020 Pulmonary embolism on long-t erm anticoagulation therapy (HCC) 04/25/2017 01/09/2020 Vitamin D deficiency 04/23/2017 019 Hyperparathyroidism due to v itamin D deficiency 04/23/2017 04/25/2018 Anemia 01/31/2017 04/25/2018 Fracture of humerus, proximal, left, closed 10/15/2013 01/31/2017 Osteoarthritis 03/27/2013 01/09/2020 Right flank pain 02/24/2010 04/14/2013 Screening for malignant neop lasm of the cervix 03/30/2006 04/14/2013 PULM EMBOLISM/INFARCT NOS 12/26/2004 PMH - PAST MEDICAL HISTORY OF 01/09/2020 Overview: hypothyriod documented as of this encounter (statuses as of 02/13/2023) [facility] History of Past illness Narrative* Problem Noted Date Diagnosed Date Resolved Date Obesity, Class II, BMI 35-39.9 09/06/2018 01/09/2020 Rotator cuff tear arthropathy, right 08/01/2018 01/09/2020 Acute pain of right shoulder 09/26/2017 01/09/2020 Pulmonary embolism on long-t erm anticoagulation therapy (HCC) 04/25/2017 01/09/2020 Vitamin D deficiency 04/23/2017 019 Hyperparathyroidism due to v itamin D deficiency 04/23/2017 04/25/2018 Anemia 01/31/2017 04/25/2018 Fracture of humerus, proximal, left, closed 10/15/2013 01/31/2017 Osteoarthritis 03/27/2013 01/09/2020 Right flank pain 02/24/2010 04/14/2013 Screening for malignant neop lasm of the cervix 03/30/2006 04/14/2013 PULM EMBOLISM/INFARCT NOS 12/26/2004 PMH - PAST MEDICAL HISTORY OF 01/09/2020 Overview: hypothyriod documented as of this encounter (statuses as of 02/19/2023) [facility] History of Past illness Narrative* Problem Noted Date Diagnosed Date Resolved Date Obesity, Class II, BMI 35-39.9 09/06/2018 01/09/2020 Rotator cuff tear arthropathy, right 08/01/2018 01/09/2020 Acute pain of right shoulder 09/26/2017 01/09/2020 Pulmonary embolism on long-t erm anticoagulation therapy (HCC) 04/25/2017 01/09/2020 Vitamin D deficiency 04/23/2017 019 Hyperparathyroidism due to v itamin D deficiency 04/23/2017 04/25/2018 Anemia 01/31/2017 04/25/2018 Fracture of humerus, proximal, left, closed 10/15/2013 01/31/2017 Osteoarthritis 03/27/2013 01/09/2020 Right flank pain 02/24/2010 04/14/2013 Screening for malignant neop lasm of the cervix 03/30/2006 04/14/2013 PULM EMBOLISM/INFARCT NOS 12/26/2004 PMH - PAST MEDICAL HISTORY OF 01/09/2020 Overview: hypothyriod documented as of this encounter (statuses as of 03/08/2023) [facility] History of Past illness Narrative* Problem Noted Date Diagnosed Date Resolved Date Obesity, Class II, BMI 35-39.9 09/06/2018 01/09/2020 Rotator cuff tear arthropathy, right 08/01/2018 01/09/2020 Acute pain of right shoulder 09/26/2017 01/09/2020 Pulmonary embolism on long-t erm anticoagulation therapy (HCC) 04/25/2017 01/09/2020 Vitamin D deficiency 04/23/2017 019 Hyperparathyroidism due to v itamin D deficiency 04/23/2017 04/25/2018 Anemia 01/31/2017 04/25/2018 Fracture of humerus, proximal, left, closed 10/15/2013 01/31/2017 Osteoarthritis 03/27/2013 01/09/2020 Right flank pain 02/24/2010 04/14/2013 Screening for malignant neop lasm of the cervix 03/30/2006 04/14/2013 PULM EMBOLISM/INFARCT NOS 12/26/2004 PMH - PAST MEDICAL HISTORY OF 01/09/2020 Overview: hypothyriod documented as of this encounter (statuses as of 03/22/2023) [facility] History of Past illness Narrative* Problem Noted Date Diagnosed Date Resolved Date Obesity, Class II, BMI 35-39.9 09/06/2018 01/09/2020 Rotator cuff tear arthropathy, right 08/01/2018 01/09/2020 Acute pain of right shoulder 09/26/2017 01/09/2020 Pulmonary embolism on long-t erm anticoagulation therapy (HCC) 04/25/2017 01/09/2020 Vitamin D deficiency 04/23/2017 019 Hyperparathyroidism due to v itamin D deficiency 04/23/2017 04/25/2018 Anemia 01/31/2017 04/25/2018 Fracture of humerus, proximal, left, closed 10/15/2013 01/31/2017 Osteoarthritis 03/27/2013 01/09/2020 Right flank pain 02/24/2010 04/14/2013 Screening for malignant neop lasm of the cervix 03/30/2006 04/14/2013 PULM EMBOLISM/INFARCT NOS 12/26/2004 PMH - PAST MEDICAL HISTORY OF 01/09/2020 Overview: hypothyriod documented as of this encounter (statuses as of 03/29/2023) [facility] Diagnosis History of pulmonary embolus (PE) Personal history of pulmonary embolism Factor 5 Leiden mutation, heterozygous (HCC) Primary hypercoagulable state [facility] in this encounter [facility] Diagnosis History of pulmonary embolus (PE) Personal history of pulmonary embolism Factor 5 Leiden mutation, heterozygous (HCC) Primary hypercoagulable state [facility] encounter [facility] Diagnosis History of pulmonary embolus (PE) Personal history of pulmonary embolism Factor 5 Leiden mutation, heterozygous (HCC) Primary hypercoagulable state [facility] Diagnosis History of pulmonary embolus (PE) Personal history of pulmonary embolism Factor 5 Leiden mutation, heterozygous (HCC) Primary hypercoagulable state [facility] Diagnosis History of pulmonary embolus (PE) Personal history of pulmonary embolism Factor 5 Leiden mutation, heterozygous (HCC) Primary hypercoagulable state documented in this encounter [facility] note* Diagnosis detention current use of anticoagulant- Primary Long-term (current) use of anticoagulants History of pulmonary embolus (PE) Personal history of pulmonary embolism Factor 5 Leiden mutation, heterozygous (HCC) Primary hypercoagulable state [facility] Diagnosis Hypothyroidism, unspecified type Chronic insomnia Insomnia, unspecified [facility] 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 Long-term (current) use of anticoagulants History of pulmonary embolus (PE) Personal history of pulmonary embolism Factor 5 Leiden mutation, heterozygous (HCC) Primary hypercoagulable state [facility]* Diagnosis Pancreatic cyst Cyst and pseudocyst of pancreas [facility] 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 Long-term (current) use of anticoagulants History of pulmonary embolus (PE) Personal history of pulmonary embolism Factor 5 Leiden mutation, heterozygous (HCC) Primary hypercoagulable state [facility] Diagnosis IPMN (intraductal papillary mucinous neoplasm)- Primary Neoplasm of unspecified nature of digestive system Acute pancreatitis, unspecified complication status, unspecified pancreatitis type [facility]* Diagnosis detention current use of anticoagulant Long-term (current) use of anticoagulants History of pulmonary embolus (PE) Personal history of pulmonary embolism Factor 5 Leiden mutation, heterozygous (HCC) Primary hypercoagulable state [facility] 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 Long-term (current) use of anticoagulants History of pulmonary embolus (PE) Personal history of pulmonary embolism Factor 5 Leiden mutation, heterozygous (HCC) Primary hypercoagulable state documented in this encounter [facility] note* Diagnosis detention current use of anticoagulant Long-term (current) use of anticoagulants History of pulmonary embolus (PE) Personal history of pulmonary embolism Factor 5 Leiden mutation, heterozygous (HCC) Primary hypercoagulable state documented in this encounter [facility] note* Diagnosis detention current use of anticoagulant Long-term (current) use of anticoagulants History of pulmonary embolus (PE) Personal history of pulmonary embolism Factor 5 Leiden mutation, heterozygous (HCC) Primary hypercoagulable state documented in this encounter [facility] note* Diagnosis Factor 5 Leiden mutation, heterozygous (HCC)- Primary Primary hypercoagulable state History of pulmonary embolus (PE) Personal history of pulmonary embolism 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 Long-term (current) use of anticoagulants documented in this encounter [facility] note* Diagnosis IPMN (intraductal papillary mucinous neoplasm)- Primary Neoplasm of unspecified nature of digestive system Body mass index (BMI) 40.0-44.9, adult (HCC) documented in this encounter [facility] note* Diagnosis Factor 5 Leiden mutation, heterozygous (HCC)- Primary Primary hypercoagulable state History of pulmonary embolus (PE) Personal history of pulmonary embolism 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 Long-term (current) use of anticoagulants documented in this encounter [facility] note* Diagnosis Factor 5 Leiden mutation, heterozygous (HCC)- Primary Primary hypercoagulable state History of pulmonary embolus (PE) Personal history of pulmonary embolism 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 Long-term (current) use of anticoagulants documented in this encounter [facility] note* Diagnosis IPMN (intraductal papillary mucinous neoplasm) Neoplasm of unspecified nature of digestive system documented in this encounter [facility] note* Diagnosis Factor 5 Leiden mutation, heterozygous (HCC)- Primary Primary hypercoagulable state History of pulmonary embolus (PE) Personal history of pulmonary embolism 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 Long-term (current) use of anticoagulants documented in this encounter [facility] for referral (narrative)* Diagnostic Procedure Only (Routine) - Closed Specialty Diagnoses / Procedures Referred By Contbessy t Referred To Contact MR IMAGING Diagnoses Pancreatic cyst Procedures MRI ABDOMEN WO/W IVCON MRI,ABDOMEN,W&WO Viviane Sarmiento MD [address] [address] Mr Imaging Referral ID Status Reason Start Date Expiration Date V isits Requested Visits Authorized [id number] Closed Auto-Generate d Referral 10/05/2020 11/04/2021 1 1 [facility] for visit Narrative* Diagnostic Procedure Only (Routine) - Closed Specialty Diagnoses / Procedures Referred By Nichol bro Referred To Contact MR IMAGING Diagnoses Pancreatic cyst Procedures MRI ABDOMEN WO/W IVCON MRI,ABDOMEN,W&WO Viviane Sarmiento MD [address] [address] Mr Imaging Referral ID Status Reason Start Date Expiration Date V isits Requested Visits Authorized [id number] Closed Auto-Generate d Referral 10/05/2020 11/04/2021 1 1 [facility] Summary Purpose Family History No Family History Records FoundNo Family History Records FoundNo Family History Records FoundNo Family History Records Found Advance Directives No Advanced Directives Records FoundDocuments on File Type Date Recorded Patient Director Of Primary Expl anation Advance Directive(s) 11/01/2020 9:52 AM Advance Directive(s) 09/24/2020 7:04 AM AD V DIR ON FILE 2011 Advance Directive(s) 09/06/2020 11:18 AM Advance Directive(s) 09/05/2020 12:54 PM Advance Directive(s) 11/02/2019 8:12 AM Advance Directive(s) 03/14/2019 6:31 AM Advance Directive(s) 03/03/2019 2:06 PM Advance Directive(s) 08/30/2018 11:39 AM Advance Directive(s) 08/19/2018 3:39 PM Advance Directive(s) 11/29/2011 6:39 PM Documents on File Type Date Recorded Patient Director Of Primary Expl anation Advance Directive(s) 11/01/2020 9:52 AM Advance Directive(s) 09/24/2020 7:04 AM AD V DIR ON FILE 2011 Advance Directive(s) 09/06/2020 11:18 AM Advance Directive(s) 09/05/2020 12:54 PM Advance Directive(s) 11/02/2019 8:12 AM Advance Directive(s) 03/14/2019 6:31 AM Advance Directive(s) 03/03/2019 2:06 PM Advance Directive(s) 08/30/2018 11:39 AM Advance Directive(s) 08/19/2018 3:39 PM Advance Directive(s) 11/29/2011 6:39 PM Documents on File Type Date Recorded Patient Director Of Primary Expl anation Advance Directive(s) 11/29/2011 6:39 PM Documents on File Type Date Recorded Patient Director Of Primary Expl anation Advance Directive(s) 11/29/2011 6:39 PM Reason for Referral Specialty Diagnoses / Procedures Referred By Contac t Referred To Contact MR IMAGING Diagnoses IPMN (intraductal papillary mucinous neoplasm) Procedures MRI PANC/ZAYRA WO/W IVCON MRI ABDOMEN W/O & W/CONTRAST MATERIAL Viviane Mae MD [address] [place] [address] Mr Imaging Referral ID Status Reason Start Date Expiration Date Visits Requested Visits Authorized [id number] Pending Review Auto-Generat ed Referral 12/06/2022 01/05/2023 1 1 Specialty Diagnoses / Procedures Referred By Contac t Referred To Contact MR IMAGING Diagnoses IPMN (intraductal papillary mucinous neoplasm) Procedures MRI 3D POST PROCESSING 3D RENDERING W/INTERP&POSTPROC DIFF WORK STATION Yohana Collazo MD [address] [place] [address] Mr Imaging [facility] Referral ID Status Reason Start Date Expiration Date Visits Requested Visits Authorized [id number] Pending Review Auto-Generat ed Referral 12/13/2022 01/12/2024 1 1 Specialty Diagnoses / Procedures Referred By Contac t Referred To Contact MR IMAGING Diagnoses IPMN (intraductal papillary mucinous neoplasm) Procedures MRI PANC/ZAYRA WO/W IVCON MRI ABDOMEN W/O & W/CONTRAST MATERIAL Yohana Collazo MD [address] [place] [address] [place] [address] Referral ID Status Reason Start Date Expiration Date Visits Requested Visits Authorized [id number] Pending Review Auto-Generat ed Referral 12/14/2023 01/12/2024 1 1 [facility]ty Diagnoses / [facility] To Contact MR [facility]AG[facility] Diagnoses IPMN (intraductal papillary mucinous neoplasm) Procedures MRI PANC/ZAYRA WO/W IVCON MRI ABDOMEN W/O & W/CONTRAST MATERIAL Viviane Mae MD [address] [place] [address] [place] [id number] Referral ID Status Reason Start Date Expiration Date V isits Requested Visits Authorized [id number] Closed Auto-Generate d Referral 12/06/2022 01/05/2023 1 1 Additional Source Comments INFORMATION SOURCE (unrecogn ized section and content) DATE CREATED AUTHOR AUTHOR'S ORGANIZ ATION 08/10/2022 [place] [facility] DATE CREATED AUTHOR AUTHOR'S ORGANIZ ATION 12/17/2022 [facility] DATE CREATED AUTHOR AUTHOR'S ORGANIZ ATION 05/04/2023 [facility] Source Comments (unrecognize d section and content) In the event this informatio n is protected by the Federal Confidentiality of Alcohol and Drug Abuse Patient Records regulations: The Federal rules restrict any use of the information to criminally investigate or prosecute any alcohol or drug abuse patient.[facility] the event this information is protected by the Federal Confidentiality of Alcohol and Drug Abuse Patient Records regulations: The Federal rules restrict any use of the information to criminally investigate or prosecute any alcohol or drug abuse patient.[facility] the event this information is protected by the Federal Confidentiality of Alcohol and Drug Abuse Patient Records regulations: The Federal rules restrict any use of the information to criminally investigate or prosecute any alcohol or drug abuse patient.[facility] the event this information is protected by the Federal Confidentiality of Alcohol and Drug Abuse Patient Records regulations: The Federal rules restrict any use of the information to criminally investigate or prosecute any alcohol or drug abuse patient.[facility] the event this information is protected by the Federal Confidentiality of Alcohol and Drug Abuse Patient Records regulations: The Federal rules restrict any use of the information to criminally investigate or prosecute any alcohol or drug abuse patient.[facility] the event this information is protected by the Federal Confidentiality of Alcohol and Drug Abuse Patient Records regulations: The Federal rules restrict any use of the information to criminally investigate or prosecute any alcohol or drug abuse patient.[facility] the event this information is protected by the Federal Confidentiality of Alcohol and Drug Abuse Patient Records regulations: The Federal rules restrict any use of the information to criminally investigate or prosecute any alcohol or drug abuse patient.[facility] the event this information is protected by the Federal Confidentiality of Alcohol and Drug Abuse Patient Records regulations: The Federal rules restrict any use of the information to criminally investigate or prosecute any alcohol or drug abuse patient.[facility] the event this information is protected by the Federal Confidentiality of Alcohol and Drug Abuse Patient Records regulations: The Federal rules restrict any use of the information to criminally investigate or prosecute any alcohol or drug abuse patient.[facility] the event this information is protected by the Federal Confidentiality of Alcohol and Drug Abuse Patient Records regulations: The Federal rules restrict any use of the information to criminally investigate or prosecute any alcohol or drug abuse patient.[facility] the event this information is protected by the Federal Confidentiality of Alcohol and Drug Abuse Patient Records regulations: The Federal rules restrict any use of the information to criminally investigate or prosecute any alcohol or drug abuse patient.[facility] the event this information is protected by the Federal Confidentiality of Alcohol and Drug Abuse Patient Records regulations: The Federal rules restrict any use of the information to criminally investigate or prosecute any alcohol or drug abuse patient.[facility] the event this information is protected by the Federal Confidentiality of Alcohol and Drug Abuse Patient Records regulations: The Federal rules restrict any use of the information to criminally investigate or prosecute any alcohol or drug abuse patient.[facility] the event this information is protected by the Federal Confidentiality of Alcohol and Drug Abuse Patient Records regulations: The Federal rules restrict any use of the information to criminally investigate or prosecute any alcohol or drug abuse patient.[facility] the event this information is protected by the Federal Confidentiality of Alcohol and Drug Abuse Patient Records regulations: The Federal rules restrict any use of the information to criminally investigate or prosecute any alcohol or drug abuse patient.[facility] the event this information is protected by the Federal Confidentiality of Alcohol and Drug Abuse Patient Records regulations: The Federal rules restrict any use of the information to criminally investigate or prosecute any alcohol or drug abuse patient.[facility] the event this information is protected by the Federal Confidentiality of Alcohol and Drug Abuse Patient Records regulations: The Federal rules restrict any use of the information to criminally investigate or prosecute any alcohol or drug abuse patient.[facility] the event this information is protected by the Federal Confidentiality of Alcohol and Drug Abuse Patient Records regulations: The Federal rules restrict any use of the information to criminally investigate or prosecute any alcohol or drug abuse patient.[facility] the event this information is protected by the Federal Confidentiality of Alcohol and Drug Abuse Patient Records regulations: The Federal rules restrict any use of the information to criminally investigate or prosecute any alcohol or drug abuse patient.[facility] the event this information is protected by the Federal Confidentiality of Alcohol and Drug Abuse Patient Records regulations: The Federal rules restrict any use of the information to criminally investigate or prosecute any alcohol or drug abuse patient.[facility] Hospital[facility] the event this information is protected by the Federal Confidentiality of Alcohol and Drug Abuse Patient Records regulations: The Federal rules restrict any use of the information to criminally investigate or prosecute any alcohol or drug abuse patient.[facility] HospitalIn the event this information is protected by the Federal Confidentiality of Alcohol and Drug Abuse Patient Records regulations: The Federal rules restrict any use of the information to criminally investigate or prosecute any alcohol or drug abuse patient.[facility] HospitalIn the event this information is protected by the Federal Confidentiality of Alcohol and Drug Abuse Patient Records regulations: The Federal rules restrict any use of the information to criminally investigate or prosecute any alcohol or drug abuse patient.[facility] HospitalIn the event this information is protected by the Federal Confidentiality of Alcohol and Drug Abuse Patient Records regulations: The Federal rules restrict any use of the information to criminally investigate or prosecute any alcohol or drug abuse patient.[facility] HospitalIn the event this information is protected by the Federal Confidentiality of Alcohol and Drug Abuse Patient Records regulations: The Federal rules restrict any use of the information to criminally investigate or prosecute any alcohol or drug abuse patient.[facility] HospitalIn the event this information is protected by the Federal Confidentiality of Alcohol and Drug Abuse Patient Records regulations: The Federal rules restrict any use of the information to criminally investigate or prosecute any alcohol or drug abuse patient.[facility] HospitalIn the event this information is protected by the Federal Confidentiality of Alcohol and Drug Abuse Patient Records regulations: The Federal rules restrict any use of the information to criminally investigate or prosecute any alcohol or drug abuse patient.[facility] HospitalIn the event this information is protected by the Federal Confidentiality of Alcohol and Drug Abuse Patient Records regulations: The Federal rules restrict any use of the information to criminally investigate or prosecute any alcohol or drug abuse patient.[facility] HospitalIn the event this information is protected by the Federal Confidentiality of Alcohol and Drug Abuse Patient Records regulations: The Federal rules restrict any use of the information to criminally investigate or prosecute any alcohol or drug abuse patient.[facility] HospitalIn the event this information is protected by the Federal Confidentiality of Alcohol and Drug Abuse Patient Records regulations: The Federal rules restrict any use of the information to criminally investigate or prosecute any alcohol or drug abuse patient.[facility] HospitalIn the event this information is protected by the Federal Confidentiality of Alcohol and Drug Abuse Patient Records regulations: The Federal rules restrict any use of the information to criminally investigate or prosecute any alcohol or drug abuse patient.[facility] HospitalIn the event this information is protected by the Federal Confidentiality of Alcohol and Drug Abuse Patient Records regulations: The Federal rules restrict any use of the information to criminally investigate or prosecute any alcohol or drug abuse patient.[facility] HospitalIn the event this information is protected by the Federal Confidentiality of Alcohol and Drug Abuse Patient Records regulations: The Federal rules restrict any use of the information to criminally investigate or prosecute any alcohol or drug abuse patient.[facility] HospitalIn the event this information is protected by the Federal Confidentiality of Alcohol and Drug Abuse Patient Records regulations: The Federal rules restrict any use of the information to criminally investigate or prosecute any alcohol or drug abuse patient.[facility] HospitalIn the event this information is protected by the Federal Confidentiality of Alcohol and Drug Abuse Patient Records regulations: The Federal rules restrict any use of the information to criminally investigate or prosecute any alcohol or drug abuse patient.[facility] HospitalIn the event this information is protected by the Federal Confidentiality of Alcohol and Drug Abuse Patient Records regulations: The Federal rules restrict any use of the information to criminally investigate or prosecute any alcohol or drug abuse patient.[facility] HospitalIn the event this information is protected by the Federal Confidentiality of Alcohol and Drug Abuse Patient Records regulations: The Federal rules restrict any use of the information to criminally investigate or prosecute any alcohol or drug abuse patient.[facility] HospitalIn the event this information is protected by the Federal Confidentiality of Alcohol and Drug Abuse Patient Records regulations: The Federal rules restrict any use of the information to criminally investigate or prosecute any alcohol or drug abuse patient.[facility] HospitalIn the event this information is protected by the Federal Confidentiality of Alcohol and Drug Abuse Patient Records regulations: The Federal rules restrict any use of the information to criminally investigate or prosecute any alcohol or drug abuse patient.[facility] HospitalIn the event this information is protected by the Federal Confidentiality of Alcohol and Drug Abuse Patient Records regulations: The Federal rules restrict any use of the information to criminally investigate or prosecute any alcohol or drug abuse patient.[facility] HospitalIn the event this information is protected by the Federal Confidentiality of Alcohol and Drug Abuse Patient Records regulations: The Federal rules restrict any use of the information to criminally investigate or prosecute any alcohol or drug abuse patient.[facility] HospitalIn the event this information is protected by the Federal Confidentiality of Alcohol and Drug Abuse Patient Records regulations: The Federal rules restrict any use of the information to criminally investigate or prosecute any alcohol or drug abuse patient.[facility] HospitalIn the event this information is protected by the Federal Confidentiality of Alcohol and Drug Abuse Patient Records regulations: The Federal rules restrict any use of the information to criminally investigate or prosecute any alcohol or drug abuse patient.[facility] HospitalIn the event this information is protected by the Federal Confidentiality of Alcohol and Drug Abuse Patient Records regulations: The Federal rules restrict any use of the information to criminally investigate or prosecute any alcohol or drug abuse patient.[facility] HospitalIn the event this information is protected by the Federal Confidentiality of Alcohol and Drug Abuse Patient Records regulations: The Federal rules restrict any use of the information to criminally investigate or prosecute any alcohol or drug abuse patient.[facility] HospitalIn the event this information is protected by the Federal Confidentiality of Alcohol and Drug Abuse Patient Records regulations: The Federal rules restrict any use of the information to criminally investigate or prosecute any alcohol or drug abuse patient.[facility] HospitalIn the event this information is protected by the Federal Confidentiality of Alcohol and Drug Abuse Patient Records regulations: The Federal rules restrict any use of the information to criminally investigate or prosecute any alcohol or drug abuse patient.[facility] HospitalIn the event this information is protected by the Federal Confidentiality of Alcohol and Drug Abuse Patient Records regulations: The Federal rules restrict any use of the information to criminally investigate or prosecute any alcohol or drug abuse patient.[facility] HospitalIn the event this information is protected by the Federal Confidentiality of Alcohol and Drug Abuse Patient Records regulations: The Federal rules restrict any use of the information to criminally investigate or prosecute any alcohol or drug abuse patient.[facility] HospitalIn the event this information is protected by the Federal Confidentiality of Alcohol and Drug Abuse Patient Records regulations: The Federal rules restrict any use of the information to criminally investigate or prosecute any alcohol or drug abuse patient.[facility] HospitalIn the event this information is protected by the Federal Confidentiality of Alcohol and Drug Abuse Patient Records regulations: The Federal rules restrict any use of the information to criminally investigate or prosecute any alcohol or drug abuse patient.[facility] HospitalIn the event this information is protected by the Federal Confidentiality of Alcohol and Drug Abuse Patient Records regulations: The Federal rules restrict any use of the information to criminally investigate or prosecute any alcohol or drug abuse patient.[facility] HospitalIn the event this information is protected by the Federal Confidentiality of Alcohol and Drug Abuse Patient Records regulations: The Federal rules restrict any use of the information to criminally investigate or prosecute any alcohol or drug abuse patient.[facility] HospitalIn the event this information is protected by the Federal Confidentiality of Alcohol and Drug Abuse Patient Records regulations: The Federal rules restrict any use of the information to criminally investigate or prosecute any alcohol or drug abuse patient.[facility] HospitalIn the event this information is protected by the Federal Confidentiality of Alcohol and Drug Abuse Patient Records regulations: The Federal rules restrict any use of the information to criminally investigate or prosecute any alcohol or drug abuse patient.[facility] HospitalIn the event this information is protected by the Federal Confidentiality of Alcohol and Drug Abuse Patient Records regulations: The Federal rules restrict any use of the information to criminally investigate or prosecute any alcohol or drug abuse patient.[facility] HospitalIn the event this information is protected by the Federal Confidentiality of Alcohol and Drug Abuse Patient Records regulations: The Federal rules restrict any use of the information to criminally investigate or prosecute any alcohol or drug abuse patient.[facility] Reason for Visit (unrecogniz ed section and content) Reason Comments Anticoagulation Telephone Fu Home INR Reason Comments Opened In Error Reason Comments Anticoagulation Telephone Fu INR Home Te st Result Reason Comments Anticoagulation Telephone Fu Reason Onset Date Comments Refill Request 10/05/2021 Reason Comments Referral Update Reason Onset Date Comments Refill Request 06/09/2021 Reason Comments Anticoagulation Telephone Fu Home INR re sul Reason Comments Pancreatic Mass Reason Onset Date Comments Anticoagulation Telephone Fu 02/23/2022 Stephany e INR result Reason Onset Date Comments Anticoagulation Telephone Fu 03/09/2022 Stephany e INR result Reason Comments Anticoagulation Telephone Fu Home INR re sult expected Reason Onset Date Comments Anticoagulation Telephone Fu 03/16/2022 Stephany e INR result Reason Onset Date Comments Anticoagulation Telephone Fu 03/23/2022 Stephany e INR result Reason Onset Date Comments Anticoagulation Telephone Fu 04/06/2022 Stephany e INR result Reason Onset Date Comments Anticoagulation Telephone Fu 04/20/2022 Stephany e INR Reason Onset Date Comments Anticoagulation Telephone Fu 05/04/2022 Stephany e INR Reason Onset Date Comments Anticoagulation Telephone Fu 05/19/2022 Stephany e INR expected Reason Onset Date Comments Anticoagulation Telephone Fu 06/29/2022 Stephany e INR Reason Onset Date Comments Anticoagulation Telephone Fu 07/13/2022 Stephany e INR Reason Onset Date Comments Anticoagulation Telephone Fu 08/21/2022 Stephany e INR Result Reason Onset Date Comments Anticoagulation Telephone Fu 10/02/2022 Stephany e INR Result Reason Onset Date Comments Anticoagulation Telephone Fu 11/27/2022 Stephany e INR Result Reason Comments Results Reason Comments Anticoagulation Telephone Fu Home INR re sult Reason Comments Anticoagulation Telephone Fu Home INR Specialty Diagnoses / Procedures Referred By Nichol bro Referred To Contact MR IMAGING Diagnoses IPMN (intraductal papillary mucinous neoplasm) Procedures MRI PANC/ZAYRA WO/W IVCON MRI ABDOMEN W/O & W/CONTRAST MATERIAL Viviane Mae MD [address] [place] [address] [place] [address] Referral ID Status Reason Start Date Expiration Date V isits Requested Visits Authorized [id number] Closed Auto-Generate d Referral 12/06/2022 01/05/2023 1 1 Reason Onset Date Comments Population Health Navigation Outreach 02/12/2023 HCC Reason Onset Date Comments Anticoagulation Telephone Fu 02/19/2023 Stephany e INR Result Reason Onset Date Comments Anticoagulation Telephone Fu 03/08/2023 Stephany e INR Reason Onset Date Comments Anticoagulation Telephone Fu 03/22/2023 Stephany e INR Reason Comments Refill Request Care Teams (unrecognized sec tion and content) Curtain Cleaner Relationship Specialty Start Date End Date Bg Beverly MD [address] [place] [address] PCP - General Family Practice 09/23/20 13, Pharmacist [id number] [place] [address] Pharmacist Pharmacy 11/13/19 Curtain Cleaner Relationship Specialty Start Date End Date Bg Beverly MD [address] [place] [address] PCP - General Family Practice 09/23/20 13, Pharmacist [id number] [place] [address] Pharmacist Pharmacy 11/13/19 Curtain Cleaner Relationship Specialty Start Date End Date Bg Beverly MD [address] [place] [address] PCP - General Family Practice 09/23/20 13, Pharmacist [id number] [place] [address] Pharmacist Pharmacy 11/13/19 Curtain Cleaner Relationship Specialty Start Date End Date Bg Beverly MD [address] [place] [address] PCP - General Family Practice 09/23/20 13, Pharmacist [phone] [place] [address] Pharmacist Pharmacy 11/13/19 Curtain Cleaner Relationship Specialty Start Date End Date Bg Beverly MD [address] [place] [address] PCP - General Family Practice 09/23/20 13, Pharmacist [phone] [place] [address] Pharmacist Pharmacy 11/13/19 Curtain Cleaner Relationship Specialty Start Date End Date Bg Beverly MD [address] [facility] [place] [address] PCP - General Family Practice 09/23/20 13, Pharmacist [phone] [place] [address] Pharmacist Pharmacy 11/13/19 Curtain Cleaner Relationship Specialty Start Date End Date Bg Beverly MD [address] [place] [address] PCP - General Family Practice 09/23/20 13, Pharmacist [id number] [place] [address] Pharmacist Pharmacy 11/13/19 Curtain Cleaner Relationship Specialty Start Date End Date Bg Beverly MD [address] [facility] [place] [address] PCP - General Family Practice 09/23/20 13, Pharmacist [phone] [place] [address] Pharmacist Pharmacy 11/13/19 Curtain Cleaner Relationship Specialty Start Date End Date Bg Beverly MD [address] [place] [address] PCP - General Family Practice 09/23/20 13, Pharmacist [phone] [place] [address] Pharmacist Pharmacy 11/13/19 Curtain Cleaner Relationship Specialty Start Date End Date Bg Beverly MD [address] [facility] [place] [address] PCP - General Family Medicine 09/23/20 13, Pharmacist [phone] [place] [address] Pharmacist Pharmacy 11/13/19 Curtain Cleaner Relationship Specialty Start Date End Date Bg Beverly MD [address] [facility] [place] [address] PCP - General Family Medicine 09/23/20 13, Pharmacist [phone] [place] [address] Pharmacist Pharmacy 11/13/19 Curtain Cleaner Relationship Specialty Start Date End Date Bg Beverly MD [address] [facility] [place] [address] PCP - General Family Medicine 09/23/20 13, Pharmacist [phone] [place] [address] Pharmacist Pharmacy 11/13/19 Curtain Cleaner Relationship Specialty Start Date End Date Bg Beverly MD [address] [place] [address] PCP - General Family Medicine 09/23/20 13, Pharmacist [phone] [place] [address] Pharmacist Pharmacy 11/13/19 Curtain Cleaner Relationship Specialty Start Date End Date Bg Beverly MD [address] [facility] [address] PCP - General Family Medicine 09/23/20 13, Pharmacist [phone] [place] [address] Pharmacist Pharmacy 11/13/19 Curtain Cleaner Relationship Specialty Start Date End Date Bg Beverly MD [address] [facility] [address] PCP - General Family Medicine 09/23/20 13, Pharmacist [phone] [place] [address] Pharmacist Pharmacy 11/13/19 Curtain Cleaner Relationship Specialty Start Date End Date Bg Beverly MD [address] [facility] [address] PCP - General Family Medicine 09/23/20 13, Pharmacist [phone] [place] [address] Pharmacist Pharmacy 11/13/19 Curtain Cleaner Relationship Specialty Start Date End Date Bg Beverly MD [address] [place] [address] PCP - General Family Medicine 09/23/20 13, Pharmacist [phone] [place] [address] Pharmacist Pharmacy 11/13/19 Curtain Cleaner Relationship Specialty Start Date End Date Bg Beverly MD [address] [place] [address] PCP - General Family Medicine 09/23/20 13, Pharmacist [phone] [place] [address] Pharmacist Pharmacy 11/13/19 Curtain Cleaner Relationship Specialty Start Date End Date Bg Beverly MD [address] [place] [address] PCP - General Family Medicine 09/23/20 13, Pharmacist [phone] [place] [address] Pharmacist Pharmacy 11/13/19 Curtain Cleaner Relationship Specialty Start Date End Date Bg Beverly MD [address] [place] [address] PCP - General Family Medicine 09/23/20 13, Pharmacist [phone] [place] [address] Pharmacist Pharmacy 11/13/19 Curtain Cleaner Relationship Specialty Start Date End Date Bg Beverly MD [address] [place] [address] PCP - General Family Medicine 09/23/20 13, Pharmacist [phone] [place] [address] Pharmacist Pharmacy 11/13/19 Curtain Cleaner Relationship Specialty Start Date End Date Bg Beverly MD [address] [place] [address] PCP - General Family Medicine 09/23/20 13, Pharmacist [phone] [place] [address] Pharmacist Pharmacy 11/13/19 Curtain Cleaner Relationship Specialty Start Date End Date Yanique Espinosa MD [address] [address] PCP - General Internal Medicine 02/12/23 13, Pharmacist [phone] [place] [address] Pharmacist Pharmacy 11/13/19 Curtain Cleaner Relationship Specialty Start Date End Date Yanique Espinosa MD [address] [address] PCP - General Internal Medicine 02/12/23 13, Pharmacist [id number] [place] [address] Pharmacist Pharmacy 11/13/19 Curtain Cleaner Relationship Specialty Start Date End Date Yanique Espinosa MD [address] [address] PCP - General Internal Medicine 02/12/23 13, Pharmacist [phone] [place] [address] Pharmacist Pharmacy 11/13/19 Curtain Cleaner Relationship Specialty Start Date End Date Yanique Espinosa MD [address] [place] [address] PCP - General Internal Medicine 02/12/23 13, Pharmacist [phone] [address] [place] [place] [address] Pharmacist Pharmacy 11/13/19 FOR RECORDS PERTAINING TO PATIENTS WHO ARE OR HAVE BEEN ENROLLED IN A CHEMICAL DEPENDENCY/SUBSTANCEABUSE PROGRAM, SOME INFORMATION MAY BE OMITTED. This clinical summary was aggregated from multiple sources. Caution should be exercised in using it in the provision of clinical care. This summary normalizes information from multiple sources, and as a consequence, information in this document may materially change the coding, format and clinical context of patient data. In addition, data may be omitted in some cases. CLINICAL DECISIONS SHOULD BE BASED ON THE PRIMARY CLINICAL RECORDS. [facility]. provides no warranty or guarantee of the accuracy or completeness of information in this document.
[2023-05-07 16:32] LABS: Absolute Lymphocyte Count 2.63 X10^3/uL (0.83-4.51); Absolute Neutrophil Count 5.3 X10^3/uL (2.0-7.7); Basophil# 0.09 X10^3/uL; Eosinophil# 0.17 X10^3/uL; Eosinophils% 1.9 % (0-5); Hematocrit 43.7 % (37-47); Hemoglobin 13.8 g/dL (12.0-15.0); Lymphocyte # 2.63 X10^3/ul (0.83-4.51); Lymphocyte % 29.9 % (19-41); Mean Corp Hgb Conc 31.6 g/dL (32-36); Mean Corpuscular Hgb 30.9 pg (27.0-32.0); Mean Corpuscular Volume 97.8 fL (81-99); Mean Platelet Vol. 11.3 fl (6.2-12.0); Monocyte# 0.55 X10^3/uL; Monocyte% 6.3 % (0-10); NRBC Flagged by Analyzer 0 % (0-5); Neutrophil # 5.33 X10^3/uL (2.7-7.7); Neutrophil % 60.6 % (47-70); Platelet Count 321 K/mm3 (150-450); RBC Distribution Width CV 13.5 % (11.6-14.6); RBC Distribution Width SD 48.3 fl (35.1-43.9); Red Blood Count 4.47 M/mm3 (4.2-5.4); White Blood Count 8.8 K/mm3 (4.4-11.0)
[2023-05-07 17:12] LABS: Anion Gap 3 (5-15); BUN 42 mg/dL (7-18); BUN/Creat Ratio 40.4 RATIO (10-20); Calcium,Total 9.6 mg/dL (8.5-10.1); Chloride 108 mmol/L (98-107); Creatinine, Serum 1.04 mg/dL (0.55-1.02); EST Glomerular Filtration Rate 56 mL/min (>60); Est Glom Filt Rate - Afr Amer 68 mL/min (>60); Glucose 115 mg/dL (74-106); Potassium 4.9 mmol/L (3.5-5.1); Sodium Level 139 mmol/L (136-145); Thyroid Stim Hormone (TSH) 0.24 uIU/mL (0.358-3.74)
== END | disposition home or self-care (01) ==
LOC: BIMLAB 14:29
PROVIDERS: PCP Internal Medicine; Referring Provider Internal Medicine; Visit Provider Internal Medicine
DX: E11.9 Type 2 diabetes mellitus without complications (principal); M81.0 Age-related osteoporosis without current pathological fracture; E03.9 Hypothyroidism, unspecified
CPT/HCPCS: 36415; 80048; 84443; 85025

== ENCOUNTER → 2023-06-12 | Outpatient (CLI) | payer MEDICARE, SELFPAY ==
--- NOTE | 2023-06-12 08:23 | BD_ITS ---
STUDY: DUAL ENERGY X-RAY ABSORPTIOMETRY / DXA REASON FOR EXAM: Female, 67 years old. Osteoporosis TECHNIQUE: Bone Mineral Density (BMD) measurements of lumbar spine and bilateral hips were obtained. COMPARISON: None. FINDINGS: Lumbar Spine (L1-L4): g/cm2 (1.083) / T-score (0.2) / Z-score (2.) Findings are suggestive of normal bone density with a low fracture risk. Left Femur Total: g/cm2 (0.719) / T-score (-1.8) / Z-score (-0.4) Left Femoral Neck: g/cm2 (0.615) / T-score (-2.1) / Z-score (-0.4) Right Femur Total: g/cm2 (0.757) / T-score (-1.5) / Z-score (-0.1) Right Femoral Neck: g/cm2 (0.650) / T-score (-1.8) / Z-score (-0.1) BD/Dexa Bone Density Study IMPRESSION: The patient is considered osteopenic as outlined below according to World [employer] Organization (WHO) criteria with a high fracture risk. Reference Information: The T-score is the number of standard deviations above or below the standard which is normal for young adults at their peak bone mineral density. The World Health Organization (WHO) interprets the T-scores as follows: Above -1 Normal bone density Between -1 and -2.5 Osteopenia Equal to / or below -2.5 Osteoporosis As a practical clinical guideline, osteopenia may be graded as follows: Mild -1 through -1.5 Moderate -1.6 through -2.0 Severe -2.1 through -2.4 The Z-score is the number of standard deviations above or below age-matched controls. A Z-score of less than -1.5 would be considered abnormal. References: 1. NIH Osteoporosis and Related Bone Diseases www osteo.org 2. International Society for Clinical Densitometry www iscd.org 3. National Osteoporosis Foundation www nof.org Electronically Signed: Carlos Villareal MD at 9:55 EDT ,
== END | disposition home or self-care (01) ==
LOC: OPBD 08:17
PROVIDERS: PCP Internal Medicine; Referring Provider Internal Medicine; Visit Provider Internal Medicine
DX: M81.0 Age-related osteoporosis without current pathological fracture (principal)
CPT/HCPCS: 77080

== ENCOUNTER → 2023-06-20 | Outpatient (CLI) | payer MEDICARE, SELFPAY ==
[2023-06-20 12:53] LABS: Thyroid Stim Hormone (TSH) 0.46 uIU/mL (0.358-3.74)
== END | disposition home or self-care (01) ==
LOC: BIMLAB 09:14
PROVIDERS: PCP Internal Medicine; Visit Provider Internal Medicine
DX: E03.9 Hypothyroidism, unspecified (principal)
CPT/HCPCS: 36415; 84443

== ENCOUNTER → 2023-08-06 | Outpatient (CLI) | payer MEDICARE, SELFPAY ==
[2023-08-06 15:48] LABS: Anion Gap 5 (5-15); BUN 27 mg/dL (7-18); BUN/Creat Ratio 29.6 RATIO (10-20); Chloride 105 mmol/L (98-107); Creatinine, Serum 0.91 mg/dL (0.55-1.02); EST Glomerular Filtration Rate 65 mL/min (>60); Est Glom Filt Rate - Afr Amer 79 mL/min (>60); Glucose 84 mg/dL (74-106); Potassium 4.9 mmol/L (3.5-5.1); Sodium Level 141 mmol/L (136-145)
== END | disposition home or self-care (01) ==
PROVIDERS: PCP Internal Medicine; Visit Provider Internal Medicine
DX: E11.9 Type 2 diabetes mellitus without complications (principal)
CPT/HCPCS: 36415; 80048

== ENCOUNTER → 2023-08-14 | Outpatient (CLI) | payer MEDICARE, SELFPAY ==
--- NOTE | 2023-08-14 09:10 | US_ITS ---
STUDY: ABDOMINAL ULTRASOUND - RIGHT UPPER QUADRANT REASON FOR VISIT: Female, 67 years old RUQ Pain. Hx of cholecystectomy. TECHNIQUE: Ultrasound evaluation of the right upper quadrant was performed with real-time and static alvarado-scale imaging. TECHNICAL QUALITY: Adequate. COMPARISON: None. FINDINGS: Liver: The liver measures 15.7 cm. There is normal echogenicity of the liver. The bile ducts are within normal limits. There is hepatic color flow. The direction of portal flow is hepatopetal. There is no demonstrated mass lesion. Gallbladder: The patient is status post cholecystectomy. Common Bile Duct (C.B.D.): The common bile duct is dilated and measures 18 mm proximally and tapers to 6.4 mm distally. Pancreas: Multiple small cystic changes are seen in the pancreas. The largest measures 8 mm x 7 mm x 5 mm. There is normal echogenicity of the pancreas. Correlation with a CT scan of the pancreas is recommended. Right Kidney: There is atrophy of the right kidney. The right kidney measures 8.9 cm x 4.3 cm x 3.9 cm. There is thinning of the renal cortex. The right cortex measures 0.9 cm. There is no demonstrated renal mass or cyst. There is no right hydronephrosis. There is a 6 mm x 7 mm x 4 mm nonobstructive calculus in the lower pole. US/Abdomen Limited IMPRESSION: Status post cholecystectomy with dilatation of the proximal portion of the common bile duct with distal tapering. Multiple small cystic changes seen in the pancreas. Correlation with CT scan is recommended. Mild right renal atrophy with nonobstructive intrarenal calculus. Electronically Signed: Carlos Villareal MD at 10:48 EDT ,
== END | disposition home or self-care (01) ==
LOC: US 09:08
PROVIDERS: PCP Internal Medicine; Referring Provider Internal Medicine; Visit Provider Internal Medicine
DX: R10.11 Right upper quadrant pain (principal); Z90.49 Acquired absence of other specified parts of digestive tract
CPT/HCPCS: 76705

== ENCOUNTER → 2023-08-29 | Outpatient (CLI) | payer MEDICARE, SELFPAY ==
--- NOTE | 2023-08-29 14:10 | CT_ITS ---
EXAM: CT ABDOMEN WITHOUT INTRAVENOUS CONTRAST CLINICAL INDICATION: Abnormal US. Pancreatic Cysts TECHNIQUE: Helically acquired images were obtained of the abdomen without intravenous contrast. This CT exam was performed using one or more of the following dose reduction techniques: automated exposure control, adjustment of the mA and/or kV according to patient size, and/or use of iterative reconstruction technique. COMPARISON: CT Abdomen dated 09/05/2020 FINDINGS: LOWER THORAX: Normal. Lung bases are clear. No cardiomegaly. No significant pericardial effusion. LIVER: Normal. Homogeneous. GALLBLADDER AND BILE DUCTS: Cholecystectomy clips are in place. Stable prominence of the common bile duct within the range of normal for postcholecystectomy patient. PANCREAS: Stable two 12 mm cyst within the head of the pancreas. SPLEEN: Normal. Normal size without focal cystic or solid mass. ADRENALS: Normal. No nodules. KIDNEYS AND URETERS: Interval resolution of the large obstructing stone of the right renal pelvis. Take nonobstructive stones noted within both kidneys. 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 INTRAPERITONEAL SPACE: Normal. No ascites or other fluid collection. No free air. BONES/JOINTS: No suspicious lytic or blastic abnormality. SOFT TISSUES: Normal. No discrete abdominal wall hernia. VASCULATURE: IVC filter in place in satisfactory position. Please assess for management plan for the patient''s IVC filter. If no plan in place referral to interventional clinician on a nonemergent basis for evaluation is recommended. Abdominal aorta is non-dilated. LYMPH NODES: No enlarged lymph nodes. CT/Abdomen WITH ORAL Cont Only IMPRESSION: 1. Stable cystic change of the head of the pancreas. 2. Stable postcholecystectomy changes of the biliary tree. Electronically Signed: Gaurav Simons MD at 17:13 EDT ,
== END | disposition home or self-care (01) ==
LOC: CT 14:09
PROVIDERS: PCP Internal Medicine; Referring Provider Internal Medicine; Visit Provider Internal Medicine
DX: R10.9 Unspecified abdominal pain (principal); K86.2 Cyst of pancreas; R93.5 Abnormal findings on diagnostic imaging of other abdominal regions, including retroperitoneum
CPT/HCPCS: 74150

== ENCOUNTER 2023-09-12 13:03 | Outpatient (RCR) | payer MEDICARE, SELFPAY | END 2023-10-07 23:59 | LOC: NS 13:03 | PROVIDERS: PCP Internal Medicine; Visit Provider Internal Medicine | DX: Z71.3 Dietary counseling and surveillance (principal); E66.9 Obesity, unspecified; E11.9 Type 2 diabetes mellitus without complications; Z86.718 Personal history of other venous thrombosis and embolism; Z86.711 Personal history of pulmonary embolism | CPT/HCPCS: 97802 ==

== ENCOUNTER → 2023-10-04 | Outpatient (CLI) | payer MEDICARE, SELFPAY ==
--- NOTE | 2023-10-04 12:37 | ECHOCS_ITS ---
Reason For Study: DYSPNEA Procedure This was a 2D Doppler, Color Flow transthoracic echocardiogram. The study was technically difficult. Contrast injection was performed. Exam performed in department. Left Ventricle Normal LV size. Mild concentric left ventricular hypertrophy. The left ventricular ejection fraction is 55 %. No evidence for diastolic dysfunction. Right Ventricle Normal right ventricle. Atria Normal left atrium. The right atrium is mildly enlarged. Bubble contrast study is negative for PFO/ASD. Mitral Valve Trivial mitral valve insufficiency. Tricuspid Valve Normal tricuspid valve. Aortic Valve Trisinus/trileaflet aortic valve. Pulmonic Valve The pulmonic valve is not well visualized. Great Vessels Normal sized aortic root. Pericardium/Pleural No pericardial effusion. Medication 22 gauge I.V. with prn adaptor inserted into right arm. Diluted definity 1.5ml given slow IV push to enhance endocardial definition. Performed a rapid injection of agitated mix of 9 cc saline and 1cc air to assess for atrial septal defect. MMode/2D Measurements & Calculations LVIDd: 4.4 cm IVSd: 1.4 cm Ao root diam: 3.5 cm LVIDs: 2.9 cm LVPWd: 1.2 cm FS: 33.6 % LAV(MOD-bp): 47.8 ml LVAd ap4: 29.2 cm2 SV(MOD-sp4): 45.6 ml LAV(MOD-bp) Indexed: 23.3 ml/m2 LVLd ap4: 8.0 cm LAV(MOD-sp2): 35.8 ml EDV(MOD-sp4): 85.7 ml LAV(MOD-sp4): 52.4 ml EDV(sp4-el): 90.4 ml LVAs ap4: 18.1 cm2 LVLs ap4: 6.6 cm ESV(MOD-sp4): 40.1 ml ESV(sp4-el): 42.2 ml EF(MOD-sp4): 53.2 % EF(sp4-el): 53.3 % SV(sp4-el): 48.2 ml LA A4 area: 20.2 cm2 LA dimension(2D): 3.3 cm RA A4 area: 24.1 cm2 TAPSE: 2.5 cm Time Measurements MV dec time: 0.25 sec Doppler Measurements & Calculations MV E max rishi: 74.6 cm/sec Lat Peak E' Rishi: 10.9 cm/sec Med Peak E' Rishi: 11.1 cm/sec MV A max rishi: 116.4 cm/sec E/E' lat: 6.8 E/E' med: 6.7 MV E/A: 0.64 MV V2 max: 106.3 cm/sec MV dec slope: 302.9 cm/sec2 Ao V2 max: 133.0 cm/sec MV max P.5 mmHg Ao max P.1 mmHg MV V2 mean: 61.0 cm/sec Ao V2 mean: 84.3 cm/sec MV mean P.7 mmHg Ao mean P.4 mmHg MV V2 VTI: 41.5 cm Ao V2 VTI: 31.6 cm AV (velocity ratio): 0.80 LV V1 max: 117.0 cm/sec PA V2 max: 82.8 cm/sec LV V1 max P.5 mmHg PA V2 mean: 55.5 cm/sec LV V1 mean P.6 mmHg LV V1 mean: 74.1 cm/sec LV V1 VTI: 25.4 cm ECHO/Echo Complete W/ Contrast Interpretation Summary Mild concentric left ventricular hypertrophy. The left ventricular ejection fraction is 55 %. The right atrium is mildly enlarged. Ordering Physician: Harley Urbina Referring Physician: Harley Urbina Performed By: Tamica Emanuel RCS
== END | disposition home or self-care (01) ==
LOC: CVS 12:36
PROVIDERS: PCP Internal Medicine; Referring Provider Internal Medicine Critical Care Medicine; Visit Provider Internal Medicine Critical Care Medicine
DX: R06.02 Shortness of breath (principal)
CPT/HCPCS: 36415; 85610; 93306; Q9957; A4216; C8929

== ENCOUNTER → 2023-10-04 | Outpatient (CLI) | payer MEDICARE, SELFPAY ==
[2023-10-04 16:39] LABS: International Normalized Ratio 1.4; Prothrombin Time (Protime)PT. 17.2 SECONDS (11.7-14.9)
== END | disposition home or self-care (01) ==
LOC: BIMLAB 15:13
PROVIDERS: PCP Internal Medicine; Referring Provider Internal Medicine; Visit Provider Internal Medicine
DX: Z00.00 Encounter for general adult medical examination without abnormal findings (principal)
CPT/HCPCS: 36415; 85610

== ENCOUNTER → 2023-11-05 | Outpatient (CLI) | payer MEDICARE, SELFPAY ==
[2023-11-05 17:00] LABS: Anion Gap 2 (5-15); BUN 19 mg/dL (7-18); Calcium,Total 9.5 mg/dL (8.5-10.1); Chloride 107 mmol/L (98-107); Creatinine, Serum 0.95 mg/dL (0.55-1.02); EST Glomerular Filtration Rate 62 mL/min (>60); Est Glom Filt Rate - Afr Amer 75 mL/min (>60); Glucose 86 mg/dL (74-106); Potassium 5.3 mmol/L (3.5-5.1); Sodium Level 142 mmol/L (136-145); Thyroid Stim Hormone (TSH) 0.26 uIU/mL (0.358-3.74)
== END | disposition home or self-care (01) ==
LOC: BIMLAB 14:17
PROVIDERS: PCP Internal Medicine; Referring Provider Internal Medicine; Visit Provider Internal Medicine
DX: E03.9 Hypothyroidism, unspecified (principal); E11.69 Type 2 diabetes mellitus with other specified complication
CPT/HCPCS: 36415; 80048; 84443

== ENCOUNTER → 2024-01-14 | Outpatient (CLI) | payer MEDICARE, SELFPAY ==
[2024-01-14 16:28] LABS: Absolute Lymphocyte Count 2.15 X10^3/uL (0.83-4.51); Absolute Neutrophil Count 2.9 X10^3/uL (2.0-7.7); Basophil# 0.05 X10^3/uL; Basophil% 0.9 % (0-1); Eosinophil# 0.18 X10^3/uL; Eosinophils% 3.1 % (0-5); Hematocrit 41.7 % (37-47); Lymphocyte # 2.15 X10^3/ul (0.83-4.51); Lymphocyte % 37.1 % (19-41); Mean Corp Hgb Conc 31.2 g/dL (32-36); Mean Corpuscular Hgb 31.4 pg (27.0-32.0); Mean Corpuscular Volume 100.7 fL (81-99); Mean Platelet Vol. 11.2 fl (6.2-12.0); Monocyte# 0.47 X10^3/uL; Monocyte% 8.1 % (0-10); NRBC Flagged by Analyzer 0 % (0-5); Neutrophil # 2.94 X10^3/uL (2.7-7.7); Neutrophil % 50.6 % (47-70); Platelet Count 252 K/mm3 (150-450); RBC Distribution Width CV 13.6 % (11.6-14.6); RBC Distribution Width SD 50.8 fl (35.1-43.9); Red Blood Count 4.14 M/mm3 (4.2-5.4); White Blood Count 5.8 K/mm3 (4.4-11.0)
[2024-01-14 16:48] LABS: Vitamin D,25 Hydroxy 56.2 ng/mL
[2024-01-14 17:01] LABS: Uric Acid 3.7 mg/dL (2.6-6.0)
[2024-01-14 17:08] LABS: ALB/GLOB Ratio 1.1 RATIO (0.9-2.4); AST(SGOT) 21 U/L (15-37); Alanine Aminotransfer ALT/SGPT 26 U/L (13-56); Albumin, Serum 3.5 g/dL (3.2-5.0); Alkaline Phosphatase 81 U/L (45-117); Anion Gap 3 (5-15); BUN 24 mg/dL (7-18); Calcium,Total 9.6 mg/dL (8.5-10.1); Chloride 104 mmol/L (98-107); Creatinine, Serum 0.92 mg/dL (0.55-1.02); EST Glomerular Filtration Rate 64 mL/min (>60); Est Glom Filt Rate - Afr Amer 78 mL/min (>60); Globulin 3.1 g/dL (2.2-4.2); Glucose 89 mg/dL (74-106); Potassium 5.6 mmol/L (3.5-5.1); Protein, Total 6.6 g/dL (6.4-8.2); Sodium Level 139 mmol/L (136-145)
== END | disposition home or self-care (01) ==
LOC: BIMLAB 14:54
PROVIDERS: PCP Internal Medicine; Referring Provider Internal Medicine; Visit Provider Internal Medicine
DX: E03.9 Hypothyroidism, unspecified (principal); E11.69 Type 2 diabetes mellitus with other specified complication; I10 Essential (primary) hypertension; M10.9 Gout, unspecified; M85.80 Other specified disorders of bone density and structure, unspecified site
CPT/HCPCS: 36415; 80053; 82306; 84443; 84550; 85025

== ENCOUNTER → 2024-02-08 | Outpatient (CLI) | payer MEDICARE, SELFPAY ==
[2024-02-08 15:24] LABS: Anion Gap 1 (5-15); BUN 28 mg/dL (7-18); BUN/Creat Ratio 34.2 RATIO (10-20); Calcium,Total 9.4 mg/dL (8.5-10.1); Chloride 106 mmol/L (98-107); Creatinine, Serum 0.82 mg/dL (0.55-1.02); EST Glomerular Filtration Rate 74 mL/min (>60); Est Glom Filt Rate - Afr Amer 89 mL/min (>60); Glucose 102 mg/dL (74-106); Potassium 5.8 mmol/L (3.5-5.1); Sodium Level 140 mmol/L (136-145)
== END | disposition home or self-care (01) ==
LOC: BIMLAB 11:25
PROVIDERS: PCP Internal Medicine; Referring Provider Internal Medicine; Visit Provider Internal Medicine
DX: E87.5 Hyperkalemia (principal)
CPT/HCPCS: 36415; 80048

== ENCOUNTER → 2024-03-18 | Outpatient (CLI) | payer MEDICARE, SELFPAY ==
[2024-03-18 12:53] LABS: Anion Gap 2 (5-15); BUN 24 mg/dL (7-18); Calcium,Total 9.5 mg/dL (8.5-10.1); Chloride 108 mmol/L (98-107); Creatinine, Serum 0.89 mg/dL (0.55-1.02); EST Glomerular Filtration Rate 67 mL/min (>60); Est Glom Filt Rate - Afr Amer 81 mL/min (>60); Glucose 95 mg/dL (74-106); Osmolality, Serum 318 mOsm/KG (280-301); Osmolality, Urine 810 mOsm/KG; Potassium 4.9 mmol/L (3.5-5.1); Sodium Level 142 mmol/L (136-145)
[2024-03-18 19:26] LABS: Microalbumin,Random Urine 29.6 mg/L (NO RANGE EST.); Microalbumin:Creatinine Ratio 16.3 mg/g CRE (<30 mg/g CRE)
[2024-03-25 08:09] LABS: Aldosterone, Serum 4.1 ng/dL (0.0-30.0)
== END | disposition home or self-care (01) ==
PROVIDERS: PCP Internal Medicine; Visit Provider Internal Medicine Nephrology
DX: E87.5 Hyperkalemia (principal); E11.9 Type 2 diabetes mellitus without complications
CPT/HCPCS: 36415; 80048; 82043; 82088; 82570; 83930; 83935; 84133

== ENCOUNTER → 2024-05-20 | Outpatient (CLI) | payer MEDICARE, SELFPAY ==
[2024-05-20 11:55] LABS: Anion Gap 2 (5-15); BUN 32 mg/dL (7-18); BUN/Creat Ratio 40.2 RATIO (10-20); Calcium,Total 9.3 mg/dL (8.5-10.1); Chloride 110 mmol/L (98-107); EST Glomerular Filtration Rate 76 mL/min (>60); Est Glom Filt Rate - Afr Amer 92 mL/min (>60); Glucose 80 mg/dL (74-106); Potassium 4.4 mmol/L (3.5-5.1); Sodium Level 142 mmol/L (136-145)
== END | disposition home or self-care (01) ==
LOC: POLAB3 11:22
PROVIDERS: PCP Internal Medicine; Visit Provider Internal Medicine Nephrology
DX: E87.5 Hyperkalemia (principal)
CPT/HCPCS: 36415; 80048

== ENCOUNTER → 2024-08-21 | Outpatient (CLI) | payer MEDICARE, SELFPAY ==
--- NOTE | 2024-08-21 12:00 | BI_ITS ---
EXAM: SCRN MAMM (CAD)W/KAMALJIT BILAT DATE: 08/21/2024 CLINICAL HISTORY: F, Age 68 y/o , BREAST CANCER SCREENING No family history. BREAST CANCER RISK ASSESSMENT: Not assessed. TECHNIQUE: Bilateral screening digital breast tomosynthesis with 2D and 3D images. Computer aided detection. COMPARISON: Prior exam(s) dated February 21, 2023.. FINDINGS: TISSUE DENSITY: The breast tissue is almost entirely fatty. Bilateral Breast Mammographic Findings: No significant masses, calcifications or other abnormalities are identified. No suspicious masses, areas of developing architectural distortion, or suspicious calcifications. There has been no significant interval change. BI/SCRN MAMM (CAD)W/KAMALJIT BILAT IMPRESSION: OVERALL FINAL ASSESSMENT: BIRADS 1 NEGATIVE RECOMMENDATION: Routine annual follow-up in 1 Year A letter with findings and recommendations will be mailed to the patient. Reading Location: [id number]
== END | disposition home or self-care (01) ==
LOC: OPBI 11:43
PROVIDERS: PCP Internal Medicine; Referring Provider Internal Medicine; Visit Provider Internal Medicine
DX: Z12.31 Encounter for screening mammogram for malignant neoplasm of breast (principal)
CPT/HCPCS: 77063; 77067

== ENCOUNTER → 2024-12-02 | Outpatient (CLI) | payer MEDICARE, SELFPAY ==
[2024-12-02 17:57] LABS: Hematocrit 40.4 % (37-47); Hemoglobin 13.0 g/dL (12.0-15.0); Immature Granulocytes Count 0.020 X10^3/uL (0.0-0.0); Mean Corp Hgb Conc 32.2 g/dL (32-36); Mean Corpuscular Volume 100.2 fL (81-99); Mean Platelet Vol. 11.4 fl (6.2-12.0); NRBC Flagged by Analyzer 0 % (0-5); Platelet Count 217 K/mm3 (150-450); RBC Distribution Width CV 13.5 % (11.6-14.6); RBC Distribution Width SD 50.4 fl (35.1-43.9); Red Blood Count 4.03 M/mm3 (4.2-5.4); White Blood Count 6.4 K/mm3 (4.4-11.0)
[2024-12-02 18:20] LABS: AST(SGOT) 28 U/L (<=31); Alanine Aminotransfer ALT/SGPT 35 U/L (<=34); Albumin, Serum 4.0 g/dL (3.4-4.8); Alkaline Phosphatase 72 U/L (35-104); Anion Gap 8 (5-15); BUN 13 mg/dL (4-19); BUN/Creat Ratio 16.9 RATIO (10-20); Calcium,Total 9.3 mg/dL (7.6-11.0); Carbon Dioxide 27.3 mmol/L (21.0-32.0); Chloride 105 mmol/L (98-108); Globulin 2.3 g/dL (2.2-4.2); Glucose 88 mg/dL (70-99); Potassium 5.9 mmol/L (3.3-5.1)
--- OUTSIDE RECORDS SUMMARY | 2024-12-02 21:51 | XMS RPT_ITS | CCD ---
Author Organization [facility] Care Team Providers Care Fitter'S Assistant Name Role Phone VIVIANE MAE S Attending Unavailable IMCA Referring Unavailable CEBUL, ANASTACIA Primary Care Unavailable ALIOSBALDOAMAN S Referring Unavailable CEBUL, ANASTACIA Primary Care Unavailable ALIVIVIANE S Attending Unavailable IMCA Referring Unavailable CEBUL, ANASTACIA Primary Care Unavailable 13, Pharmacist Unavailable Bg Beverly MD Primary Care Provider 13, Pharmacist Unavailable Bg Beverly MD Primary Care Provider 13, Pharmacist Unavailable Bg Beverly MD Primary Care Provider 13, Pharmacist Unavailable Bg Beverly MD Primary Care Provider MORENO STILES DO Attending Unavailable MORENO STILES DO Primary Care Unavailable MORENO STILES DO Admitting Unavailable Dr. Yanique Espinosa Attending Provider [phone] Dr. Yanique Espinosa Attending Provider [phone] Dr. Yanique Espinosa Primary Care Provider Dr. Yanique Espinosa Referring Provider [phone] Dr. Raghavendra Carrasco Attending Provider Dr. Sabas Beverly Referring Provider Dr. Raghavendra Carrasco Referring Provider Dr. Raghavendra Carrasco Other Provider Dr. Harley Urbina Attending Provider Yanique Espinosa MD Primary Care Provider [phone] Dr. Yanique Espinosa Attending Provider [phone] Dr. José Luis Vaca Attending Provider [phone] [place] INFORMATION SYSTEMS AUDIT MANAGER, INFORMATION SYSTEMS AUDIT MANAGER-C Glenys Attending Provider Dr. Yanique Espinosa Primary Care Provider [phone] Dr. Yanique Espinosa Referring Provider [phone] Dr. Sabas Beverly Referring Provider Dr. Yanique Espinosa Attending Provider [phone] Dr. Yanique Espinosa Primary Care Provider [phone] Dr. José Luis Vaca Attending Provider [phone] Dr. Yanique Espinosa Referring Provider [phone] [place]la INFORMATION SYSTEMS AUDIT MANAGER, INFORMATION SYSTEMS AUDIT MANAGER-C Glenys Attending Provider Dr. Sabas Beverly Referring Provider Dr. Yanique Espinosa Attending Provider [phone] Yanique Espinosa MD Primary Care Provider [phone] Dr. Yanique Espinosa Primary Care Provider [phone] Dr. Yanique Espinosa Referring Provider [phone] VIVIANE MAE Referring Unavailable BG BEVERYL Primary Care Unavailab arlyn Viera III, MD, Anastacia Guillen Primary Care Provider Mindy vailable 13, Pharmacist Unavailable Dr. Yanique Espinosa MD Primary Care Provider Dr. Yanique Espinosa MD Attending Provider [phone] Dr. Yanique Espinosa MD Referring Provider [phone] Dr. Rajani Cazares DO Attending Provider Dr. Yanique Espinosa MD Primary Care Provider Francisca GONZALEZ, Dr. Chanel Attending Provider [phone] Francisca GONZALEZ, Dr. Chanel Referring Provider [phone] Dr. Harley Urbina DO Attending Provider Francisca GONZALEZ, Dr. Chanel Primary Care Provider Oleghe, Efewongbe Attending Unavailable Oleghe, Efewongbe Referring Unavailable Oleghe, Efewongbe Primary Care Unavailable Oleghe, Efewongbe Primary Care Unavailable Oleghe, Efewongbe Attending Unavailable Oleghe, Efewongbe Referring Unavailable Oleghe, Efewongbe Primary Care Unavailable Oleghe, Efewongbe Attending Unavailable Oleghe, Efewongbe Referring Unavailable Oleghe, Efewongbe Primary Care Unavailable Rajani Cazares Attending Unavailable Rajani Cazares Attending Unavailable Oleghe, Efewongbe Primary Care Unavailable Oleghe, Efewongbe Primary Care Unavailable Oleghe, Efewongbe Attending Unavailable Oleghe, Efewongbe Referring Unavailable Oleghe, Efewongbe Primary Care Unavailable Oleghe, Efewongbe Attending Unavailable Oleghe, Efewongbe Primary Care Unavailable Oleghe, Efewongbe Referring Unavailable Harley Urbina Attending Unavailable Oleghe, Efewongbe Primary Care Unavailable Oleghe, Efewongbe Attending Unavailable Oleghe, Efewongbe Referring Unavailable Oleghe, Efewongbe Primary Care Unavailable Oleghe, Efewongbe Attending Unavailable Oleghe, Efewongbe Referring Unavailable Oleghe, Efewongbe Primary Care Unavailable Glenys Kulkarni NP Attending Unavailable Oleghe, Efewongbe Referring Unavailable Oleghe, Efewongbe Primary Care Unavailable Oleghe, Efewongbe Attending Unavailable Oleghe, Efewongbe Referring Unavailable Allergies Allergy Classification Reported Allergen(s) Allergy Type Date of Onset Reaction(s) Facility Angiotensin Converting Enzyme (CARMEN) Inhibitors (1 source) Lisinopril Drug Allergy 8 Cough [facility] Aspartame (1 source) Aspartame Drug Allergy 6 Other: See Comments [facility] Estrogens (1 source) Estrogens Drug Allergy 5 Shortness of Breath [facility] Work Phone: Macrolides (antibiotic) (1 source) Erythromycin Drug Allergy 5 Diarrhea [facility] NSAIDs (1 source) celecoxib Drug Allergy 5 Rash [facility] Penicillins (antibiotic) (1 source) Penicillins Drug Allergy 5 Diarrhea [facility] Sulfonamides (antibiotic) (1 source) Sulfonamides (Antibiotic) Drug Allergy 5 [facility] (20 sources) Aspartame; Translations: [ASPARTAME] Drug Allergy 6 Other: See Comments [facility] (20 sources) celecoxib; Translations: [CELECOXIB] Drug Allergy 5 Rash [facility] (20 sources) Estrogens; Translations: [ESTROGENS] Drug Allergy 5 Shortness of Breath [facility] (20 sources) Lisinopril; Translations: [LISINOPRIL] Drug Allergy 8 Cough [facility] (20 sources) NSAIDs; Translations: [NSAIDS (NON-STEROIDAL ANTI-INFLAMMATOR Y DRUG)] Propensity to adverse reactions (disorder) 9 Unknown [facility] (20 sources) Penicillins; Translations: [PENICILLINS] Propensity to adverse reactions (disorder) 5 Diarrhea [facility] Comment on above: Has tolerated short term. (20 sources) Sulfonamides (Antibiotic); Translations: [SULFA (SULFONAMIDE ANTIBIOTICS)] Propensity to adverse reactions (disorder) 5 [facility] Repository (20 sources) ERYTHROMYCIN BASE; Translations: [ERYTHROMYCIN BASE] Propensity to adverse reactions (disorder) 5 Diarrhea [facility] Medications Current Medications Medication Drug Class(es) Dates Sig (Normalized) Sig (Original) acetaminophen 500 mg / diphenhydrAMINE hydrochloride 25 mg oral tablet (13 sources) Histamine-1 Receptor Antagonist Start: 11-03-2022 Diphenhydramine-Ac etaminophen (Tylenol Pm Extra Strength) 25-500 mg tablet Active 1 {tbl} PO AT BEDTIME as needed November 03, 2022 12:00am allopurinol 100 mg oral tablet (20 sources) Xanthine Oxidase Inhibitor Start: 04-29-2021 End: 02-05-2023 take 2 tablets by mouth once daily Allopurinol 100 mg tablet Discontinued 100 mg PO DAILY November 03, 2022 12:00am February 05, 2023 8:05am 2 tabs daily Start: 10-25-2019 End: 09-29-2024 take 1 tablet by mouth twice daily Allopurinol 100 mg tablet Active 100 mg PO TWICE A DAY 200 2 September 29, 2024 1:50pm Start: 10-23-2019 End: 09-13-2020 take 2 tablets by mouth once daily allopurinol (ZYLOPRIM) 100 mg tablet Take 2 tablets by mouth once daily. 180 tablet 3 10/23/2019 09/13/2020 Discontinued Comment on above: Take 2 tablets by mo ut once daily. cetirizine hydrochloride 10 mg oral tablet (11 sources) Histamine-1 Receptor Antagonist Start: 02-06-20 take 1 tablet by mouth twice daily Cetirizine 10 mg tablet Active 10 mg PO TWICE A DAY February 05, 2023 12:00am Cholecalciferol (20 sources) Vitamin D Start: 02-06-20 take 1 capsule by mouth once daily Cholecalciferol (Vitamin D3) 62.5 mcg (2,500 unit) capsule Active 2500 ug PO DAILY February 05, 2023 12:00am Start: 02-05-2023 take 2500 ug by mout h once daily Cholecalciferol (Vitamin D3) Active 2500 MCG PO DAILY February 05, 2023 12:00am Start: 02-05-2023 take 2500 ug by mout h once daily Cholecalciferol (Vitamin D3) Active 2500 MCG PO DAILY February 04, 2023 11:00pm Start: 11-03-2022 End: 02-05-2023 take 1 capsule by mouth once daily Cholecalciferol (Vitamin D3) 50 mcg (2,000 unit) capsule Discontinued 50 ug PO DAILY November 03, 2022 12:00am February 05, 2023 8:07am Start: 10-23-2019 End: 02-05-2023 take 1 capsule by mouth once daily Cholecalciferol (Vitamin D3) 2,000 UNIT capsule Discontinued 2000 U PO DAILY October 25, 2019 12:00am February 05, 2023 8:06am Comment on above: Take 1 capsule by mo uth once daily. 1 ml denosumab 60 mg/ml prefilled syringe (14 sources) RANK Ligand Inhibitor Start: 12-04-2022 End: 02-13-2024 Denosumab (Prolia) 60 mg/mL syringe Active 60 mg SC every 6 months 1 2 February 13, 2024 4:39pm diphenhyd/phenyleph/carmen taminop (TYLENOL ALLERGY M-S NIGHTTIME ORAL) (20 sources) diphenhyd/phenyl eph/carmen taminop (TYLENOL ALLERGY M-S NIGHTTIME ORAL) Take by mouth. Active diphenhyd/phenyl eph/acetaminop (TYLENOL ALLERGY M-S NIGHTTIME ORAL) Take by mouth. 0 Active Comment on above: Take by mouth. ferrous sulfate 325 mg oral tablet (20 sources) Start: 11-03-2022 take 1 tablet by mouth once daily Ferrous Sulfate 325 mg (65 mg iron) tablet Active 325 mg PO DAILY November 03, 2022 12:00am ferrous sulfate (IRON ORAL) Take by mouth once daily. Active ferrous sulfate (IRON ORAL) Take by mouth once daily. 0 Active Comment on above: Take by mouth once d aily. fluocinonide 0.0005 mg/mg topical ointment (20 sources) Corticosteroid Start: 02-06-20 End: 02-06-20 Fluocinonide 0.05 % ointment Active 1 NMA TOPICAL TWICE A DAY as needed for rash 60 February 05, 2023 1:41pm FLUoxetine 20 mg oral capsule (20 sources) Serotonin Reuptake Inhibitor Start: 10-23-19 End: 09-19-19 take 1 capsule by mouth once daily Fluoxetine 20 mg capsule Active 20 mg PO DAILY 90 3 September 18, 2024 8:09am Comment on above: Take 1 capsule by [facility] once daily. iv contrast (will be provided with radiology test) (20 sources) Start: 12-14-19 iv contrast (will be provided with radiology [...] in the MR contrast administration guidelines link. 1 Each 12/13/2022 Active Start: 12-13-2022 iv contrast (w ill be provided with radiology test) MRI PANC/ZAYRA [...] in the MR contrast administration guidelines link. 1 Each 0 12/13/2022 Active Start: 12-06-2021 End: 12-07-2021 iv contrast (will be provide d with radiology test) Indications: IPMN (intraductal papillary mucinous neoplasm) MRI PANC/ZAYRA Inject, intravenously, once for 1 [...] in the MR contrast administration guidelines link. 1 Each 0 12/06/2021 12/07/2021 Active Comment on above: MRI PANC/ZAYRA Inject, intravenously, once for 1 [...] in the MR contrast administration guidelines link. levothyroxine sodium 0.088 mg oral tablet (20 sources) l-Thyroxine Start: 03-11-20 End: 09-30-19 take 1 tablet by mouth once daily Levothyroxine 88 mcg tablet Active 88 ug PO daily 90 September 29, 2024 1:50pm Hypothyroidism Hypothyroidism, unspecified Start: 11-06-2023 End: 03-11-2024 take 1 tablet by mouth once daily Levothyroxine 75 mcg tablet Discontinued 75 ug PO DAILY 60 November 06, 2023 11:01am March 11, 2024 11:48am Start: 05-09-2023 End: 11-06-2023 take 1 tablet by mouth once daily Levothyroxine 88 mcg tablet Discontinued 88 ug PO DAILY 90 2 July 12, 2023 8:45am July 12, 2023 12:52pm Start: 11-03-2022 End: 02-19-2023 take 1 capsule by mouth once daily Levothyroxine 100 mcg capsule Discontinued 100 ug PO DAILY 90 1 February 05, 2023 10:54am February 19, 2023 5:33pm Start: 10-23-2019 End: 05-09-2023 take 1 tablet by mouth once daily Levothyroxine 100 mcg tablet Discontinued 100 ug PO DAILY 90 2 February 19, 2023 1:00am May 09, 2023 3:21pm Comment on above: Take 1 tablet by binta th once daily. Take on empty stomach OXYGEN, HOME THERAPY, (20 sources) OXYGEN, HOME THE RAPY, Inhale as instructed as directed. 2L PM Active OXYGEN, HOME THE RAPY, Inhale as instructed as directed. 2L PM 0 Active Comment on above: Inhale as instructed as directed. 2L PM traZODone hydrochloride 50 mg oral tablet (17 sources) Serotonin Reuptake Inhibitor Start: 2 End: 2 take 1 tablet by mouth once daily at bedtime traZODone (DESYREL) 50 mg tablet Indications: Chronic insomnia Take 1 tablet by mouth daily at bedtime. 90 tablet 1 06/09/2021 12/06/2021 Active Comment on above: Take 1 tablet by binta th daily at bedtime. Vitamin B Complex (B Complex-Vitamin B12) tablet (13 sources) Start: Vitamin B Complex (B Complex-Vitamin B12) tablet Active 1 {tbl} PO DAILY November 03, 2022 12:00am Start: 11-03-2022 take 1 tablet by binta th once daily Vitamin B Complex (B Complex-Vitamin B12) tablet Active 1 TABLET PO DAILY November 02, 2022 11:00pm Start: 11-03-2022 take 1 tablet by binta th once daily Vitamin B Complex (B Complex-Vitamin B12) tablet Active 1 TABLET PO DAILY November 03, 2022 12:00am vitamin b12 0.1 mg oral tablet (20 sources) Vitamin B12 take 1 tablet by mouth once daily cyanocobalamin (VITAMIN B-12) 100 mcg tab Take 100 mcg by mouth once daily. Active Comment on above: Take 100 mcg by mout h once daily. warfarin sodium 5 mg oral tablet (20 sources) Vitamin K Antagonist Start: Warfarin 5 mg tablet Active 0 PO DAILY November 05, 2024 2:29pm Take 5 mg 6 days a week and 2.5 mg 1 day a week Start: 03-11-2024 End: 11-05-2024 take 1 tablet by mouth once daily Warfarin 5 mg tablet Discontinued 0 PO DAILY July 14, 2024 9:52am November 05, 2024 2:29pm 5 mg daily Start: 12-07-2023 End: 03-11-2024 Warfarin 5 mg tablet Discont inued 0 PO DAILY December 07, 2023 11:03am March 11, 2024 11:50am 5 mg for 6 days; 2.5 mg on day 7 Start: 11-05-2023 End: 12-07-2023 Warfarin 5 mg tablet Discont inued 0 PO DAILY November 05, 2023 1:26pm December 07, 2023 11:03am orally daily; 5mg Start: 05-13-2021 End: 08-15-2021 warfarin (COUMADIN) 5 mg tab let 7.5 mg every Mon, Fri; 5 mg all other days 0 05/13/2021 08/15/2021 Discontinued (Adjust Sig - Block E-Cancel) Start: 10-25-2019 End: 11-05-2023 take 1 tablet by mouth once daily, then take 2.5 mg by mouth every month Warfarin 5 mg tablet Discontinued 0 PO DAILY September 11, 2023 11:12am November 05, 2023 1:27pm orally daily; 5mg Turner---SA, 2.5mg ---Turner Comment on above: 7.5 mg every Sun, i; 5 mg all other days 5 mg every [place], Sat; 7.5 mg all other days Take 5mg (1 tab) by mouth daily or as directed by [facility] Completed/Discontinued Medications Medication Drug Class(es) Dates Sig (Normalized) Sig (Original) 200 actuat albuterol 0.09 mg/actuat dry powder inhaler (20 sources) beta2-Adrenergic Agonist Start: 04-17-2019 End: 12-13-2022 take 2 puff(s) by inhalation every four hours as needed ProAir RespiClick 90 mcg/actuation breath activated (albuterol sulfate) Inhale 2 Puffs as instructed every 4 hours as needed. 1 Inhaler 1 06/09/2021 12/13/2022 Discontinued Comment on above: Inhale 2 Puffs as in structed every 4 hours as needed. alendronic acid 70 mg oral tablet (20 sources) Bisphosphonate Start: 12-24-2020 End: 12-13-2022 take 1 tablet by mouth every week alendronate (FOSAMAX) 70 mg tablet Take 1 tablet by mouth one time a week. Take with a full glass of water, on an empty stomach; do NOT lie down for 30minutes. 12 tablet 3 12/24/2020 12/13/2022 Discontinued Comment on above: Take 1 tablet by binta th one time a week. Take with a full glass of water, on an empty stomach; do NOT lie down for 30minutes. amoxicillin 500 mg oral capsule (5 sources) Penicillin-class Antibacterial Start: 08-08-2023 End: 01-14-2024 take 4 capsules by mouth once Amoxicillin 500 mg capsule Discontinued 2000 mg PO ONCE 4 0 August 08, 2023 12:00am January 14, 2024 2:26pm Start: 08-08-2023 take 2000 mg by mouth once Monika xicillin Active 2000 MG PO ONCE 4 August 08, 2023 12:00am Start: 10-23-2019 End: 04-29-2021 take 4 capsules by mouth every hour amoxicillin (POLYMOX, AMOXIL) 500 mg capsule 4 CAPSULES BY MOUTH ONE HOUR PRIOR TO DENTAL PROCEDURES 12 capsule 5 10/23/2019 04/29/2021 Discontinued biotin 1 mg oral capsule (20 sources) Start: 11-03-2022 End: 02-05-2023 take 1 capsule by mouth once daily Biotin 1 mg capsule Discontinued 1 mg PO DAILY November 03, 2022 12:00am February 05, 2023 8:06am Comment on above: Take by mouth once d aily. COD LIVER OIL ORAL (1 source) End: 05-16-2020 take 1 [tsp_us] by mouth once daily COD LIVER OIL ORAL Take by mouth once daily. 1 tsp daily 05/16/2020 Discontinued (Discontinued by Patient) desonide 0.5 mg/ml topical lotion (1 source) Corticosteroid Start: 04-23-2017 End: 09-13-2020 desonide (DESOWEN) 0.05 % lotion Daily only if needed to the face 180 mL 04/23/2017 09/13/2020 Discontinued furosemide 20 mg oral tablet (20 sources) Loop Diuretic Start: 04-21-2019 End: 06-09-2024 take 1 tablet by mouth once daily Furosemide 20 mg tablet Discontinued 20 mg PO daily April 17, 2024 10:30am June 09, 2024 2:21pm Comment on above: TAKE 1 TABLET DAILY NEEDED FOR EDEMA gabapentin 300 mg oral capsule (20 sources) Anti-epileptic Agent Start: 02-05-2023 End: 11-01-2023 take 2 capsules by mouth twice daily at bedtime Gabapentin 300 mg capsule Discontinued 0 PO TWICE A DAY 270 February 05, 2023 10:54am November 01, 2023 7:39am 1 cap in am; 2 cap at HS orally twice a day; Start: 02-05-2023 End: 02-05-2023 take 2 capsules by mouth twice daily at bedtime Gabapentin Discontinued 0 PO TWICE A DAY February 05, 2023 12:00am February 05, 2023 10:54am 1 cap in am; 2 cap at HS orally twice a day; Start: 02-05-2023 End: 02-05-2023 take 2 capsules by mouth twice daily at bedtime Gabapentin Discontinued 0 PO TWICE A DAY February 04, 2023 11:00pm February 05, 2023 9:54am 1 cap in am; 2 cap at HS orally twice a day; hydrocortisone 25 mg/ml topical cream (11 sources) Corticosteroid Start: 02-05-2023 End: 05-07-2023 Hydrocortisone 2.5 % cream Discontinued 1 NMA TOPICAL TWICE A DAY as needed for rash 08 05February 05, 2023 12:00am May 07, 2023 2:44pm Apply to face as needed hydrOXYzine hydrochloride 25 mg oral tablet (20 sources) Antihistamine Start: 02-05-2023 End: 09-11-2023 take 1 tablet by mouth at bedtime Hydroxyzine Hcl 25 mg tablet Discontinued 25 mg PO AT BEDTIME February 05, 2023 10:55am September 11, 2023 11:12am naloxone hydrochloride 40 mg/ml nasal spray (1 source) Opioid Antagonist Start: 10-31-2019 End: 05-16-2020 naloxone 4 mg/actuation nasal spray (NARCAN) Use 1 spray in one nostril as needed for overdose. May repeat every 2 to 3 min in alternating nostrils until medical assistance is available 1 Box 10/31/2019 05/16/2020 Discontinued (Discontinued by Patient) Omeprazole (1 source) Proton Pump Inhibitor End: 05-16-2020 omeprazole magnesium (PRILOSEC ORAL) Take by mouth once daily. OTC 05/16/2020 Discontinued (Discontinued by Patient) PEPSIN/BETAINE HCL (PEPSIN-BETAINE ORAL) (20 sources) End: 12-13-2022 PEPSIN/BETAINE HCL (PEPSIN-BETAINE ORAL) Take 1 tablet by mouth as needed. 12/13/2022 Discontinued End: 12-13-2022 PEPSIN/BETAINE HCL (PEPSIN-B ETAINE ORAL) Take 1 tablet by mouth as needed. 0 12/13/2022 Discontinued PEPSIN/BETAINE H CL (PEPSIN-BETAINE ORAL) Take 1 tablet by mouth as needed. 0 Active Comment on above: Take 1 tablet by binta th as needed. traMADol hydrochloride 50 mg oral tablet (20 sources) Opioid Agonist Start: 2 End: 4 take 1 tablet by mouth twice daily as needed for pain Tramadol 50 mg tablet Discontinued 50 mg PO TWICE A DAY as needed for pain 60 0 February 21, 2023 5:02pm August 06, 2023 2:26pm Osteoarthritis Unspecified osteoarthritis, unspecified site Comment on above: Take 1 tablet by binta th twice daily as needed. zolpidem tartrate 5 mg oral tablet (13 sources) gamma-Aminobutyr ic Acid-ergic Agonist Start: 3 End: 3 take 1 tablet by mouth at bedtime Zolpidem (Ambien) 5 mg tablet Discontinued 5 mg PO AT BEDTIME 1 0 November 10, 2022 12:00am February 05, 2023 8:09am Problems Active Problems Problem Classification Problem Date Documented Da te Episodic/Chronic Abdominal pain (12 sources) Right flank pain; Translations: [Unspecified abdominal pain] Onset: 0 Resolved: 4 04-14-2013 Episodic Acute and unspecified renal failure (18 sources) Injury of kidney; Translations: [Acute kidney failure, unspecified] 09-03-2020 Episodic Allergic reactions (20 sources) Urticaria; Translations: [Urticaria, unspecified] 11-07-2022 Episodic Anxiety disorders (20 sources) Mixed anxiety and depressive disorder; Translations: [Anxiety disorder, unspecified] Onset: 9 04-25-2018 Chronic Biliary tract disease (13 sources) Gallstone; Translations: [Calculus of gallbladder without cholecystitis without obstruction] 11-07-2022 Episodic Calculus of urinary tract (20 sources) Kidney stone; Translations: [Calculus of kidney] Onset: 0 02-24-2010 Episodic Chronic obstructive pulmonary disease and bronchiectasis (10 sources) Mild chronic obstructive pulmonary disease; Translations: [Chronic obstructive pulmonary disease, unspecified] 04-10-2023 Chronic Coagulation and hemorrhagic disorders (20 sources) Heterozygous Factor V Leiden mutation; Translations: [Activated protein C resistance] Onset: 3 Chronic Complications of surgical procedures or medical care (13 sources) Periprosthetic fracture; Translations: [Periprosthetic fracture around internal prosthetic right shoulder joint, initial encounter] 10-27-2019 Episodic Conduction disorders (20 sources) Right bundle branch block; Translations: [Unspecified right bundle-branch block] Onset: 2 08-14-2011 Chronic Diabetes mellitus with complications (1 source) Type 2 diabetes mellitus with other specified complication; Translations: [Type 2 diabetes mellitus with other specified complication] Onset: 5 Chronic Diabetes mellitus without complication (20 sources) [...] hypertension; Translations: [Essential (primary) hypertension] Onset: 6 03-31-2006 Chronic Fracture of upper limb (20 sources) Fracture of shaft of humerus ; Translations: [Displaced comminuted fracture of shaft of humerus, left arm, subsequent encounter for fracture with routine healing] Onset: 4 Resolved: 7 02-05-2020 Episodic Genitourinary symptoms and ill-defined conditions (13 sources) History of urinary tract infection; Translations: [Personal history of urinary (tract) infections] 11-07-2022 Episodic Gout and other crystal arthropathies (20 sources) Gout; Translations: [Gout, unspecified] Onset: 6 02-19-2006 Chronic Immunizations and screening for infectious disease (14 sources) Encounter for screening for other viral diseases; Translations: [Suspected disease caused by 2019-nCoV] Onset: 3 11-18-2019 Episodic Malaise and fatigue (16 sources) Fatigue; Translations: [Chronic fatigue, unspecified] 02-05-2023 Chronic Malignant neoplasm without specification of site (13 sources) Malignant neoplastic disease; Translations: [Malignant (primary) neoplasm, unspecified] 11-07-2022 Chronic Miscellaneous mental health disorders (1 source) Chronic insomnia; Translations: [Psychophysiologic insomnia] Chronic Mood disorders (20 sources) Recurrent major depression in partial remission; Translations: [Major depressive disorder, recurrent, in partial remission] Onset: 0 01-13-2020 Chronic Osteoarthritis (20 sources) Arthritis of shoulder region joint; Translations: [Primary osteoarthritis, unspecified shoulder] Onset: 6 Resolved: 0 04-25-2018 Chronic Osteoporosis (20 sources) Osteoporosis; Translations: [Age-related osteoporosis without current pathological fracture] Onset: 5 11-07-2022 Chronic Other bone disease and musculoskeletal deformities (13 sources) Osteopenia; Translations: [Other specified disorders of bone density and structure, unspecified site] 11-07-2022 Episodic Other circulatory disease (13 sources) Inferior vena cava filter in situ; Translations: [Presence of other vascular implants and grafts] 10-25-2019 Chronic Other connective tissue disease (20 sources) History of right shoulder arthroplasty; Translations: [Presence of right artificial shoulder joint] Onset: 9 11-28-2018 Chronic Other connective tissue disease (3 sources) H/O: back problem; Translations: [Personal history of other diseases of the musculoskeletal system and connective tissue] 11-07-2022 Episodic Other diseases of kidney and ureters (13 sources) Hydronephrosis co-occurrent and due to calculus of kidney and ureter; Translations: [Hydronephrosis with renal and ureteral calculous obstruction] 09-05-2020 Episodic Other gastrointestinal disorders (13 sources) Irritable bowel syndrome; Translations: [Irritable bowel syndrome without diarrhea] 11-07-2022 Chronic Other gastrointestinal disorders (1 source) Bariatric surgery status; Translations: [Bariatric surgery status] Onset: Episodic Other gastrointestinal disorders (13 sources) Gastrointestinal tract problem; Translations: [Other specified symptoms and signs involving the digestive system and abdomen] 11-07-2022 Episodic Other gastrointestinal disorders (4 sources) Incontinence of feces; Translations: [Full incontinence of feces] 08-06-2023 Episodic Other gastrointestinal disorders (1 source) Full incontinence of feces; Translations: [Full incontinence of feces] 08-06-2023 Episodic Other inflammatory condition of skin (20 sources) Rosacea; Translations: [Rosacea, unspecified] Onset: 2 03-25-2012 Chronic Other injuries and conditions due to external causes (13 sources) H/O: fracture; Translations: [Personal history of (healed) traumatic fracture] 11-07-2022 Episodic Other liver diseases (13 sources) Cardiac enzymes abnormal; Translations: [Abnormal levels of other serum enzymes] 09-03-2020 Episodic Other liver diseases (5 sources) Abnormal levels of other serum enzymes; Translations: [Other nonspecific abnormal serum enzyme levels] 11-03-2022 Episodic Other lower respiratory disease (13 sources) Single lobe lung infiltrate; Translations: [Other nonspecific abnormal finding of lung field] 11-18-2019 Episodic Other nutritional; endocrine; and metabolic disorders (20 sources) Metabolic syndrome X; Translations: [Metabolic syndrome] Onset: 6 04-04-2006 Chronic Other nutritional; endocrine; and metabolic disorders (20 sources) Body mass index 40+ - severely obese; Translations: [Morbid (severe) obesity due to excess calories] Onset: 8 01-09-2020 Chronic Other nutritional; endocrine; and metabolic disorders (7 sources) Obesity; Translations: [Obesity, unspecified] 04-10-2023 Chronic Other nutritional; endocrine; and metabolic disorders (3 sources) Obesity, unspecified; Translations: [Obesity, unspecified] 04-10-2023 Chronic Other screening for suspected conditions (not mental disorders or infectious disease) (20 sources) Other specified abnormal findings of blood chemistry; Translations: [Elevated liver function tests] Onset: 6 Resolved: 4 09-03-2020 Episodic Pancreatic disorders (not diabetes) (20 sources) Cyst of pancreas; Translations: [Cyst and pseudocyst of pancreas] Onset: 6 04-04-2016 Episodic Prolapse of female genital organs (20 sources) Instability of pelvic floor; Translations: [Other female genital prolapse] Onset: 0 04-24-2019 Chronic Pulmonary heart disease (20 sources) H/O: pulmonary embolus; Translations: [Personal history of pulmonary embolism] Onset: 5 Resolved: 0 Episodic Residual codes; unclassified (20 sources) Hypoxia; Translations: [Idiopathic sleep related nonobstructive alveolar hypoventilation] Onset: 0 01-21-2020 Chronic Residual codes; unclassified (13 sources) Hypersomnia; Translations: [Hypersomnia, unspecified] 11-07-2022 Chronic Residual codes; unclassified (10 sources) Idiopathic sleep related nonobstructive alveolar hypoventilation; Translations: [Idiopathic sleep related non-obstructive alveolar hypoventilation] 02-05-2023 Chronic Residual codes; unclassified (1 source) FH: premature coronary heart disease; Translations: [Family history of ischemic heart disease and other diseases of the circulatory system] 11-17-2024 Episodic Residual codes; unclassified (1 source) Family history of ischemic heart disease and other diseases of the circulatory system; Translations: [Family history of ischemic heart disease and other diseases of the circulatory system] Onset: 5 Episodic Respiratory failure; insufficiency; arrest (adult) (1 source) Chronic respiratory failure with hypoxia; Translations: [Chronic respiratory failure with hypoxia] Onset: 4 Chronic Respiratory failure; insufficiency; arrest (adult) (18 sources) Hypoxemic respiratory failure; Translations: [Respiratory failure, unspecified with hypoxia] 04-10-2023 Episodic Comment on above: 1 LPM 2 LPM Spondylosis; intervertebral disc disorders; other back problems (20 sources) Lumbar spondylosis; Translations: [Spondylosis without myelopathy or radiculopathy, lumbar region] Onset: 0 03-17-2010 Chronic Thyroid disorders (20 sources) Hypothyroidism; Translations: [Hypothyroidism, unspecified] Onset: 5 04-05-2015 Chronic Unclassified (10 sources) H/O: back problem; Translations: [History of back problems] 11-07-2022 Urinary tract infections (20 sources) Acute cystitis; Translations: [Acute cystitis without hematuria] 09-03-2020 Episodic Past or Other Problems Problem Classification Problem Date Documented Date Episodic/Chronic Cancer of uterus (20 sources) History of malignant neoplasm of uterine body; Translations: [Personal history of malignant neoplasm of other parts of uterus] Onset: 7 01-09-2020 Episodic Deficiency and other anemia (7 sources) Anemia; Translations: [Anemia, unspecified] Onset: 7 Resolved: 9 04-25-2018 Episodic Fluid and electrolyte disorders (4 sources) Hyperkalemia; Translations: [Hyperkalemia] Onset: 5 01-15-2024 Episodic Intestinal obstruction without hernia (20 sources) Obstructive defecation syndrome; Translations: [Fecal impaction] Onset: 0 05-07-2019 Episodic Neoplasms of unspecified nature or uncertain behavior (20 sources) Benign neoplasm of pancreas; Translations: [Neoplasm of unspecified behavior of digestive system] Onset: 2 03-25-2012 Episodic Nutritional deficiencies (7 sources) Vitamin D deficiency; Translations: [Vitamin D deficiency, unspecified] Onset: 8 Resolved: 9 04-25-2018 Chronic Other aftercare (20 sources) H/O: anticoagulant therapy; Translations: [buttermaker continuous churn (current) use of anticoagulants] Onset: 9 08-05-2018 Episodic Other aftercare (20 sources) Post-discharge follow-up; Translations: [Encounter for follow-up examination after completed treatment for conditions other than malignant neoplasm] Onset: 0 01-13-2020 Episodic Other aftercare (20 sources) Long-term current use of anticoagulant; Translations: [buttermaker continuous churn (current) use of anticoagulants] Onset: 2 10-05-2021 Episodic Other and unspecified benign neoplasm (20 sources) Benign neoplasm of colon; Translations: [Benign neoplasm of colon, unspecified] Onset: 7 08-03-2006 Episodic Other bone disease and musculoskeletal deformities (1 source) Other specified disorders of bone density and structure, unspecified site; Translations: [Other specified disorders of bone density and structure, unspecified site] Onset: 4 Episodic Other connective tissue disease (20 sources) Pelvic floor tension; Translations: [Other specified disorders of muscle] Onset: 0 05-07-2019 Episodic Other connective tissue disease (7 sources) Rotator cuff arthropathy of right shoulder; Translations: [Unspecified rotator cuff tear or rupture of right shoulder, not specified as traumatic] Onset: 9 Resolved: 0 01-09-2020 Episodic Other endocrine disorders (7 sources) Hyperparathyroidism due to vitamin D deficiency; Translations: [Secondary hyperparathyroidism, not elsewhere classified] Onset: 8 Resolved: 9 04-25-2018 Chronic Other gastrointestinal disorders (20 sources) History of bypass of stomach; Translations: [Bariatric surgery status] Onset: 4 03-16-2014 Episodic Other gastrointestinal disorders (20 sources) Slow transit constipation; Translations: [Slow transit constipation] Onset: 0 05-07-2019 Episodic Other gastrointestinal disorders (20 sources) Irregular bowel habits; Translations: [Other specified symptoms and signs involving the digestive system and abdomen] Onset: 0 05-07-2019 Episodic Other lower respiratory disease (20 sources) Desaturation of blood; Translations: [Hypoxemia] Onset: 0 10-31-2019 Episodic Other non-traumatic joint disorders (7 sources) Pain in right shoulder; Translations: [Pain in joint, shoulder region] Onset: 8 Resolved: 0 01-09-2020 Episodic Other nutritional; endocrine; and metabolic disorders (20 sources) Obese class II; Translations: [Obesity, unspecified] Onset: 9 Resolved: 0 09-06-2020 Chronic Phlebitis; thrombophlebitis and thromboembolism (20 sources) H/O: Deep vein thrombosis; Translations: [Personal history of other venous thrombosis and embolism] Onset: 4 09-03-2020 Episodic Residual codes; unclassified (20 sources) Insomnia; Translations: [Insomnia, unspecified] Onset: 5 04-05-2015 Episodic Spondylosis; intervertebral disc disorders; other back problems (20 sources) Chronic low back pain; Translations: [Chronic midline low back pain without sciatica] Onset: 8 09-26-2017 Episodic Unclassified (7 sources) PMH - PAST MEDICAL HISTORY OF Resolved: 0 01-09-2020 Results Test Name Value Interpretation Reference Range Facility Internal Medicine Office Vis true 11-17-2024 Internal Medicine Office Visit [facility] [place] [address] [place] [address] OFFICE VISIT Date of Service: 11/17/24 MR#: [id number] Acct: [id number] Name: ASHLEY PABON Rep #: [id number] : 1955 Provider: Dr. Yanique mccord MD Age/Sex: 69/F Location: [facility] Status: Signed Intake Vital Signs 08/06/24 14:31 09/17/24 08:45 11/17/24 10:02 Height 5 ft 4 in 5 ft 4 in 5 ft 4 in Weight: 213 lb BMI 36.6 BP 108/58 L Blood Pressure Location Lt brachial Position Sitting Respiration 16 Pulse 63 Pulse Source Monitor Temp 97.4 F L Temp Source Temporal Pulse Oximetry (%) 94 Oxygen Delivery Method room air Intake Visit Reasons: 3 M FU Chief Complaint: 3 M FU [employer] [place] Attendant Required: No Accompanied by: Self Is patient in pain?: No Allergies Sulfa (Sulfonamide Antibiotics) Allergy (Verified 11/17/24 10:03) Rash erythromycin base Adverse Reaction (Verified 11/17/24 10:03) Abd cramps/diarrhea Penicillins Adverse Reaction (Verified 11/17/24 10:03) Abd cramps/diarrhea Medications ???Medication ???Instructions ???Recorded ???Confirmed ???Type diphenhydramine 25 1 tab PO QHS PRN 11/03/22 11/17/24 History mg-acetaminophen 500 mg tablet (Tylenol PM Extra Strength) ferrous sulfate 325 mg (65 mg 325 mg PO DAILY 11/03/22 11/17/24 History iron) tablet vitamin B complex (B 1 tab PO DAILY 11/03/22 11/17/24 H istory Complex-Vitamin B12 tablet) cetirizine 10 mg tablet 10 mg PO BID 02/05/23 11/17/24 His tory cholecalciferol (vitamin D3) 62.5 2,500 mcg PO DAILY 02/05/2311/17 History mcg (2,500 unit) capsule fluocinonide 0.05 % topical 1 applic topical BID PRN rash #60 02/05/23 11/17/24 Rx ointment grams tramadol 50 mg tablet 50 mg PO BID PRN pain #60 tabs 11/17/24 Rx gabapentin 300 mg capsule See Rx Instructions PO BID #270 11/17/24 Rx caps denosumab 60 mg/mL subcutaneous 60 mg subcut [id number] #1 mL 11/17/24 Rx syringe (Prolia) furosemide 20 mg tablet 20 mg PO QDAY #90 tabs 06/09/24 Rx fluoxetine 20 mg capsule 20 mg PO DAILY #90 caps 09/18/24 0 11/17/24 Rx allopurinol 100 mg tablet 100 mg PO BID #200 TABLETS 5 11/17/24 Rx levothyroxine 88 mcg tablet 88 mcg PO QDAY #90 tabs 09/29/24 0 11/17/24 Rx warfarin 5 mg tablet See Rx Instructions PO DAILY #90 0 11/05/24 11/17/24 Rx tabs Have you fallen in the past year?: No Nurse's Note: Patient presents for a 3 month FU. Has no concerns. [facility] Medical History (Updated 11/17/24 @ 10:[address] Yanique Espinosa MD) Family history of early CAD Hyperkalemia Hypertension Abnormal US (ultrasound) of abdomen Pancreatic cyst Bowel incontinence Abdominal pain Chronic fatigue Nocturnal hypoxemia Health care maintenance Hypothyroidism Type 2 diabetes mellitus Hypersomnolence GERD (gastroesophageal reflux disease) Osteoporosis Osteopenia Osteoarthritis Kidney stones Irritable bowel syndrome Hives Gout Gastrointestinal problem Gallstones Diabetes Cancer Hx of blood clots Hx: UTI (urinary tract infection) Hx of fracture History of back problems Arthritis Allergies Cancer Anxiety Chronic pain Kidney disease GERD (gastroesophageal reflux disease) On home oxygen therapy Pulmonary embolism DVT (deep venous thrombosis) Arthritis Kannan filter in place Asthma History of diabetes mellitus resolved following bariatric surgery Surgical History History of embolic filter insertion 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 History of cholecystectomy History of appendectomy Hx of gastric bypass Family History Brother Bleeding disorder Cancer throat Diabetes Father Bleeding disorder factor 5 Diabetes Grandfather Diabetes Sister CVA (cerebral vascular accident) Other Anxiety Arthritis Bowel disease Heart disease Hx of blood clots Hypertension Kidney disease Myocardial infarction Thyroid disorder Social History Smoking Status: Former smoker alcohol intake: current details: 1-2 a year substance use type: does not use what type of physical activity do you participate in: walking and bicycling HPI HPI Chief Complaint: 3 M FU Details: ASHLEY PABON, is a 69 F who presents to the office today for follow-up of her chronic medical conditions. No acute concerns at this time. History of hypertension, blood pressure today is at 108/58 mmHg. At another visit, she states that her systolic was in the 90s. No significant concerns for near syncopal episodes but she states that she occasionally catches herself being unst (more content not included)... [facility] Pulmonary Visit Reporton Pulmonary Visit Report [facility] [address] [place] [address] OFFICE VISIT Date of Service: 09/17/24 MR#: [id number] Acct: [id number] Name: ASHLEY PABON Rep #: [id number] : 1955 Provider: Dr. Harley Urbina DO Age/Sex: 69/F Location: [facility] Status: Signed Assessment and Plan Assessment and Plan (1) Hypoxic respiratory failure: Status: Chronic Qualifiers: Chronicity: chronic Qualified Code(s): J96.11 - Chronic respiratory failure with hypoxia Comment: 2 LPM Plan: The patient has a history of chronic hypoxemic respiratory failure requiring supplemental oxygen with exertion and nightly. She has no history of sleep apnea. She has no significant parenchymal lung disease on chest imaging. Echocardiogram has never been able to estimate RVSP, but has showed intact systolic function without evidence for cardiac level shunt. She remains systemically anticoagulated. Given that her respiratory symptoms are minimal, we will hold off on initiating any type of inhaler regimen for her COPD. The patient is not overtly interested in pursuing any additional cardiac workup or heart catheterization at this time. Plan Details Follow Up: 1 Year HPI HPI Comments Details: The patient is a 69-year-old female who presents to the clinic today for a routine scheduled follow- up office visit. If you recall, the patient was previously under the care of Dr. Carrasco until his departure. She was being followed due to the presence of nocturnal hypoxemia. The patient completed a prior sleep study, which failed to demonstrate evidence for sleep apnea, but did document persistent hypoxemia for an over an hour. She has a known history of factor V Leiden. She has a very limited smoking history, having quit completely in her 20s. Sleep study completed on 11/15/2022 showing no significant sleep apnea with an AHI of 1.2 events per hour, periodic limb movements of 41.3, but none resulting in arousals. Of concern, patient spent over an hour with saturations less than 88%. Pulmonary function studies completed in February 2023 demonstrated an irreversible mild large airways obstructive ventilatory defect with preserved lung volumes and diffusing capacity. 6-minute walk test demonstrated the need for 2 L/min of supplemental oxygen with exertion. Surface echocardiogram completed in March 2023 demonstrated mild concentric LVH with an ejection fraction of 65%. Today, the patient continues to only reporting mild degree of exertional shortness of breath. Her weight and appetite have been stable. She has remained compliant with use of her supplemental oxygen and prescribed anticoagulation regimen. 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 Intake Vital Signs 03/11/24 07:42 09/17/24 08:45 Height 5 ft 4 in 5 ft 4 in Weight: 226 lb BMI 38.7 BP 116/64 Blood Pressure Location Lt brachial Position Sitting Respiration 20 H Pulse 70 Pulse Source Monitor Temp 97.4 F L Temperature Source Temporal Artery Pulse Oximetry (%) 97 Oxygen Delivery Method nasal canula Oxygen Flow Rate (L/min) 2 Intake Visit Reasons: 6 m fu Chief Complaint: Follow-up chronic conditions [employer] [place] Attendant Required: No HAO Vendor: Radhaesme Accompanied by: Self Allergies Sulfa (Sulfonamide Antibiotics) Allergy (Verified 09/17/24 10:35) Rash erythromycin base Adverse Reaction (Verified 09/17/24 10:35) Abd cramps/diarrhea Penicillins Adverse Reaction (Verified 09/17/24 10:35) Abd cramps/diarrhea Medications ???Medication ???Instructions ???Recorded ???Confirmed ???Type diphenhydramine 25 1 tab PO QHS PRN 11/03/22 09/17/24 History mg-acetaminophen 500 mg tablet (Tylenol PM Extra Strength) ferrous sulfate 325 mg (65 mg 325 mg PO DAILY 11/03/22 09/17/24 History iron) tablet vitamin B complex (B 1 tab PO DAILY 11/03/22 09/17/24 H istory Complex-Vitamin B12 tablet) cetirizine 10 mg tablet 10 mg PO BID 02/05/23 09/17/24 His tory cholecalciferol (vitamin D3) 62.5 2,500 mcg PO DAILY 02/05/2309/17 History mcg (2,500 unit) capsule fluocinonide 0.05 % topical 1 applic topical BID PRN rash #60 02/05/23 09/17/24 Rx ointment grams allopurinol 100 mg tablet 100 mg PO BID #200 TABLETS 4 09/17/24 Rx tramadol 50 mg tablet 50 mg PO BID PRN pain #60 tabs 09/17/24 Rx gabapentin 300 mg capsule See Rx Instructions PO BID #270 09/17/24 Rx caps fluoxetine 20 mg capsule 20 mg PO DAILY #90 caps 11/08/23 0 09/17/24 Rx denosumab 60 mg/mL subcutaneous 60 mg subcut [id number] #1 mL 09/17/24 Rx syringe (Prolia) levothyroxine 88 mcg tablet 88 mcg PO QDAY 03/11/24 09/17/24 H istory furosemide 20 mg tablet 20 mg PO QDAY #90 tabs 06/09/24 Rx (more content not included)... [facility] Breast imaging reportOrdered By: Carlos Villareal on 08-21-2024 Study report [facility] Imaging Services [address] [place] [address] SCRN MAMM (CAD)W/KAMALJIT BILAT MR#: [id number] Acct: [id number] Name: ASHLEY PABON Rep #: [id number] : 1955 F 68 From: Fidel Villareal MD PCP: Dr. Yanique Espinosa MD Status: R EG CLI Study:SCRN MAMM (CAD)W/KAMALJIT BILAT Date of Exa m: 08/21/24 Exam# [id number] Ordering Dr: Marky Espinosa MD EXAM: SCRN MAMM (CAD)W/KAMALJIT BILAT DATE: 08/21/2024 CLINICAL HISTORY: F, Age 68 y/o , BREAST CANCER SCREENING No family history. BREAST CANCER RISK ASSESSMENT: Not assessed. TECHNIQUE: Bilateral screening digital breast tomosynthesis with 2D and 3D images. Computeraided detection. COMPARISON: Prior exam(s) dated February 21, 2023.. FINDINGS: TISSUE DENSITY: The breast tissue is almost entirely fatty. Bilateral Breast Mammographic Findings: No significant masses, calcifications or other abnormalities are identified. No suspicious masses, areas of developing architectural distortion, or suspicious calcifications. There has been no significant interval change. BI/SCRN MAMM (CAD)W/KAMALJIT BILAT IMPRESSION: OVERALL FINAL ASSESSMENT: BIRADS 1 NEGATIVE RECOMMENDATION: Routine annual follow-up in 1 Year A letter with findings and recommendations will be mailed to the patient. Reading Location: [id number] CC: Dr. Yanique Espinosa MD ~ Track Worker: Signed [facility] SCRN MAMM (CAD)W/KAMALJIT BILATo n 08-21-2024 SCRN MAMM (CAD)W/KAMALJIT BILAT [facility] Imaging Services [address] [place], [place] [address] SCRN MAMM (CAD)W/KAMALJIT BILAT MR#: [id number] Acct: [id number] Name: ASHLEY PABON Rep #: [id number] : 1955 F 68 From: Carlos snyder MD PCP: Dr. Yanique Espinosa MD Status: REG CLI Study: SCRN MAMM (CAD)W/KAMALJIT BILAT Date of Exam: 08/07 08/31 Exam# [id number] Ordering Dr: Yanique Espinosa MD EXAM: SCRN MAMM (CAD)W/KAMALJIT BILAT DATE: 08/21/2024 CLINICAL HISTORY: F, Age 68 y/o , BREAST CANCER SCREENING No family history. BREAST CANCER RISK ASSESSMENT: Not assessed. TECHNIQUE: Bilateral screening digital breast tomosynthesis with 2D and 3D images. Computer aided detection. COMPARISON: Prior exam(s) dated February 21, 2023.. FINDINGS: TISSUE DENSITY: The breast tissue is almost entirely fatty. Bilateral Breast Mammographic Findings: No significant masses, calcifications or other abnormalities are identified. No suspicious masses, areas of developing architectural distortion, or suspicious calcifications. There has been no significant interval change. BI/SCRN MAMM (CAD)W/KAMALJIT BILAT IMPRESSION: OVERALL FINAL ASSESSMENT: BIRADS 1 NEGATIVE RECOMMENDATION: Routine annual follow-up in 1 Year A letter with findings and recommendations will be mailed to the patient. Reading Location: [facility] CC: Dr. Yanique Espinosa MD Track Worker: Signed [facility] Internal Medicine Office Vis [facility] 08-06-2024 Internal Medicine Office Visit [facility] [place], [place] [address] OFFICE VISIT Date of Service: 08/06/24 MR#: [id number] Acct: [id number] Name: ASHLEY PABON Rep #: [id number] : 1955 Provider: Dr. Yanique mccord MD Age/Sex: 68/F Location: [facility] Status: Signed with Addenda ADDENDUM by JAROD Huitron on 08/11/24 at 1342 Office Procedure Documentation entered by Nga Huitron MA 08/11/24 13:42: Results POC A1C POC A1C Cancelled % Last Edit by Nga Huitron MA on 08/11/24 13:42 POC A1C previously reported as 6.0 Nga Huitron 08/11/24 13:42 CANCELLED duplicate Date cc: * Signed Intake Vital Signs 05/07/24 09:13 08/06/24 14:31 Height 5 ft 4 in 5 ft 4 in Weight: 220 lb 8 oz BMI 37.8 BP 138/78 H Blood Pressure Location Lt brachial Position Sitting Respiration 16 Pulse 67 Pulse Source Monitor Temp 97 F L Temp Source Temporal Pulse Oximetry (%) 67 Oxygen Delivery Method room air Intake Visit Reasons: 3 M FU Chief Complaint: Follow-up chronic conditions [place] Attendant Required: No Accompanied by: Allergies Sulfa (Sulfonamide Antibiotics) Allergy (Verified 08/06/24 14:18) Rash erythromycin base Adverse Reaction (Verified 08/06/24 14:18) Abd cramps/diarrhea Penicillins Adverse Reaction (Verified 08/06/24 14:18) Abd cramps/diarrhea Medications ???Medication ???Instructions ???Recorded ???Confirmed ???Type diphenhydramine 25 1 tab PO QHS PRN 11/03/22 08/06/24 History mg-acetaminophen 500 mg tablet (Tylenol PM Extra Strength) ferrous sulfate 325 mg (65 mg 325 mg PO DAILY 11/03/22 08/06/24 History iron) tablet vitamin B complex (B 1 tab PO DAILY 11/03/22 08/06/24 H istory Complex-Vitamin B12 tablet) cetirizine 10 mg tablet 10 mg PO BID 02/05/23 08/06/24 His tory cholecalciferol (vitamin D3) 62.5 2,500 mcg PO DAILY 02/05/2308/06 History mcg (2,500 unit) capsule fluocinonide 0.05 % topical 1 applic topical BID PRN rash #60 02/05/23 08/06/24 Rx ointment grams allopurinol 100 mg tablet 100 mg PO BID #200 TABLETS 4 08/06/24 Rx tramadol 50 mg tablet 50 mg PO BID PRN pain #60 tabs 08/06/24 Rx gabapentin 300 mg capsule See Rx Instructions PO BID #270 08/06/24 Rx caps fluoxetine 20 mg capsule 20 mg PO DAILY #90 caps 11/08/23 0 08/06/24 Rx denosumab 60 mg/mL subcutaneous 60 mg subcut [id number] #1 mL 08/06/24 Rx syringe (Prolia) levothyroxine 88 mcg tablet 88 mcg PO QDAY 03/11/24 08/06/24 H istory furosemide 20 mg tablet 20 mg PO QDAY #90 tabs 06/09/24 Rx warfarin 5 mg tablet See Rx Instructions PO DAILY #90 0 07/14/24 08/06/24 Rx tabs Have you fallen in the past year?: No PFSH Medical History Hyperkalemia Hypertension Abnormal US (ultrasound) of abdomen Pancreatic cyst Bowel incontinence Abdominal pain Chronic fatigue Nocturnal hypoxemia Health care maintenance Hypothyroidism Type 2 diabetes mellitus Hypersomnolence GERD (gastroesophageal reflux disease) Osteoporosis Osteopenia Osteoarthritis Kidney stones Irritable bowel syndrome Hives Gout Gastrointestinal problem Gallstones Diabetes Cancer Hx of blood clots Hx: UTI (urinary tract infection) Hx of fracture History of back problems Arthritis Allergies Cancer Anxiety Chronic pain Kidney disease GERD (gastroesophageal reflux disease) On home oxygen therapy Pulmonary embolism DVT (deep venous thrombosis) Arthritis Kannan filter in place Asthma History of diabetes mellitus resolved following bariatric surgery Surgical History History of embolic filter insertion 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 History of cholecystectomy History of appendectomy Hx of gastric bypass Family History Brother Bleeding disorder Cancer throat Diabetes Father Bleeding disorder factor 5 Diabetes Grandfather Diabetes Sister CVA (cerebral vascular accident) Other Anxiety Arthritis Bowel disease Heart disease Hx of blood clots Hypertension Kidney disease Myocardial infarction Thyroid disorder Social History Smoking Status: Former smoker alcohol intake: current details: 1-2 a year substance use type: does not use what type of physical activity do you participate in: walking and bicycling HPI HPI Chief Complaint: Follow-up chronic conditions Details: ASHLEY FERRER (more content not included)... Normal [facility] - Hematology and Cell countsOrdered By: Yanique Espinosa on 08-06-2024 HbA1c (Bld) [Mass fraction] 6.0 % 4.2-6.3 [facility] Basic Metabolic Profile (BMP )on 05-20-2024 BUN/CRE 40.2 RATIO High 10-20 [facility] Comment on above: Performed By: #### L 500.2500 ####[facility] [address] [place], [address] CA,Total 9.3 mg/dL Normal 8.5-10.1 [facility] Comment on above: Performed By: #### L 500.2500 ####[facility] [address] [place], [address] Chloride [Moles/Vol] 110 mmol/L High 98-107 [facility] Comment on above: Performed By: #### L 500.2500 ####[facility] [address] [place], [address] CO2 [Moles/Vol] 30.0 mmol/L Normal 21.0-32.0 [facility] Comment on above: Performed By: #### L 500.2500 ####[facility] [address] [place], [address] Creatinine [Mass/Vol] 0.80 mg/dL Normal 0.55-1.[address] [facility] Comment on above: Result Comment: The validity of the calculated GFR GFRAA in patients over 70 years has not been determined. Clinical correlation is essential. Performed By: #### L 500.2500 ####[facility] [address] [place], [address] EST GFR - AA 92 mL/min Normal >60 [facility] Comment on above: Result Comment: Afri can Egyptian GFR Calc Performed By: #### L 500.2500 ####[facility] [address] [place], [address] GAP 2 Low 5-15 [facility] Comment on above: Performed By: #### L 500.2500 ####[facility] [address] [place], [address] GFR/1.73 sq M.predicted among non-blacks MDRD (S/P/Bld) [Vol rate/Area] 76 mL/min/{1.73_m2} Normal >60 [facility] Comment on above: Result Comment: Non- GFR Calc Performed By: #### L 500.2500 ####[facility] [address] [place], [address] Glucose [Mass/Vol] 80 mg/dL Normal 74-106 [facility] Comment on above: Performed By: #### L 500.2500 ####[facility] [address] [place], [address] Potassium [Moles/Vol] 4.4 mmol/L Normal 3.5-5.[address] [facility] Comment on above: Performed By: #### L 500.2500 ####[facility] [address] [place], [address] Sodium [Moles/Vol] 142 mmol/L Normal 136-145 [facility] Comment on above: Performed By: #### L 500.2500 ####[facility] [address] [place], [address] Urea nitrogen [Mass/Vol] 32 mg/dL High 7-18 [facility] Comment on above: Performed By: #### L 500.2500 ####[facility] [address] [place], [address] Blood urea nitrogen (BUN)/cr eatinine ratioOrdered By: Rajani hung 05-20-2024 Urea nitrogen/Creatinine [Mass ratio] 40.2 mg/mg High 10-20 [facility] Carbon dioxide measurementOr dered By: Rajani Cazares on 05-20-2024 CO2 [Moles/Vol] 30.0 mmol/L 21.0-32.0 [facility] Chloride measurementOrdered By: Rajani Cazares on 05-20-2024 Chloride [Moles/Vol] 110 mmol/L High 98-107 [facility] Glomerular filtration rate ( GFR) estimationOrdered By: Rajani Cazares on 05-20-2024 GFR/1.73 sq M.predicted among non-blacks MDRD (S/P/Bld) [Vol rate/Area] 76 mL/min/{1.73_m2} >60 [facility] Comment on above: Non- GFR Calc Glucose measurementOrdered B y: Rajani Cazares on 05-20-2024 Glucose [Mass/Vol] 80 mg/dL 74-106 [facility] Potassium measurementOrdered By: Rajani Cazares on 05-20-2024 Potassium [Moles/Vol] 4.4 mmol/L 3.5-5.[address] [facility] Serum anion gap measurementO rdered By: Rajani Cazares on 05-20-2024 Anion gap [Moles/Vol] 2 mmol/L Low 5-[address] [facility] Serum or plasma calcium des urement (mass/volume)Ordered By: Rajani Cazares on 05-20-2024 Calcium [Mass/Vol] 9.3 mg/dL 8.5-10.1 [facility] Serum or plasma creatinine m easurement (mass/volume)Ordered By: Rajani Cazares on 05-20-2024 Creatinine [Mass/Vol] 0.80 mg/dL 0.55-1.[address] [facility] Comment on above: The validity of the calculated GFR & GFRAA in patients over 70 years has not been determined. Clinical correlation is essential. Serum or plasma urea nitroge n measurement (mass/volume)Ordered By: Rajani Cazares on 05-20-2024 Urea nitrogen [Mass/Vol] 32 mg/dL High 7-18 [facility] Sodium levelOrdered By: Ariela Cazares on 05-20-2024 Sodium [Moles/Vol] 142 mmol/L 136-145 [facility] Vis iton 05-07-2024 Internal Medicine Office Visit [facility] [address] [place], [place] [address] OFFICE VISIT Date of Service: 05/07/24 MR#: [id number] Acct: [id number] Name: ASHLEY PABON Rep #: [id number] : 1955 Provider: Dr. Yanique mccord MD Age/Sex: 68/F Location: [facility] Status: Signed Intake Vital Signs 11/05/23 13:33 03/11/24 07:42 05/07/24 09:13 Height 5 ft 4 in 5 ft 4 in 5 ft 4 in Weight: 230 lb 225 lb 7 oz BMI 39.4 38.7 BP 120/77 110/62 Blood Pressure Location Lt brachial Lt brachial Position Sitting Sitting Respiration 22 H 14 Pulse 97 67 Pulse Source Monitor Monitor Temp 97.7 F L 96.8 F L Temp Source Temporal Pulse Oximetry (%) 94 98 Oxygen Delivery Method nasal canula room air Oxygen Flow Rate (L/min) 2 Intake Visit Reasons: 6 M FU Chief Complaint: FU Chronic Conditions Accompanied by: Is patient in pain?: No Allergies Sulfa (Sulfonamide Antibiotics) Allergy (Verified 05/07/24 09:03) Rash erythromycin base Adverse Reaction (Verified 05/07/24 09:03) Abd cramps/diarrhea Penicillins Adverse Reaction (Verified 05/07/24 09:03) Abd cramps/diarrhea Medications ???Medication ???Instructions ???Recorded ???Confirmed ???Type diphenhydramine 25 1 tab PO QHS PRN 11/03/22 05/07/24 History mg-acetaminophen 500 mg tablet (Tylenol PM Extra Strength) ferrous sulfate 325 mg (65 mg 325 mg PO DAILY 11/03/22 05/07/24 History iron) tablet vitamin B complex (B 1 tab PO DAILY 11/03/22 05/07/24 History Complex-Vitamin B12 tablet) cetirizine 10 mg tablet 10 mg PO BID 02/05/23 05/07/24 History cholecalciferol (vitamin D3) 62.5 2,500 mcg PO DAILY 02/05/23 05/07/24 History mcg (2,500 unit) capsule fluocinonide 0.05 % topical 1 applic topical BID PRN rash #60 02/05/23 05/07/24 Rx ointment grams allopurinol 100 mg tablet 100 mg PO BID #200 TABLETS 06/21/23 05/07/24 Rx tramadol 50 mg tablet 50 mg PO BID PRN pain #60 tabs 08/06/23 05/07/24 Rx gabapentin 300 mg capsule See Rx Instructions PO BID #270 11/01/23 05/07/24 Rx caps fluoxetine 20 mg capsule 20 mg PO DAILY #90 caps 11/08/23 05/07/24 Rx denosumab 60 mg/mL subcutaneous 60 mg subcut [id number] #1 mL 02/13/24 05/07/24 Rx syringe (Prolia) levothyroxine 88 mcg tablet 88 mcg PO QDAY 03/11/24 05/07/24 History warfarin 5 mg tablet See Rx Instructions PO DAILY 03/11/24 05/07/24 History furosemide 20 mg tablet 20 mg PO QDAY #90 tabs 04/17/24 05/07/24 Rx Have you fallen in the past year?: Yes Nurse's Note: no injuries attributes falling to being clumsiness antibiotics needed for dental appts [facility] Medical History Hyperkalemia Hypertension Abnormal US (ultrasound) of abdomen Pancreatic cyst Bowel incontinence Abdominal pain Chronic fatigue Nocturnal hypoxemia Health care maintenance Hypothyroidism Type 2 diabetes mellitus Hypersomnolence GERD (gastroesophageal reflux disease) Osteoporosis Osteopenia Osteoarthritis Kidney stones Irritable bowel syndrome Hives Gout Gastrointestinal problem Gallstones Diabetes Cancer Hx of blood clots Hx: UTI (urinary tract infection) Hx of fracture History of back problems Arthritis Allergies Cancer Anxiety Chronic pain Kidney disease GERD (gastroesophageal reflux disease) On home oxygen therapy Pulmonary embolism DVT (deep venous thrombosis) Arthritis [place] filter in place Asthma History of diabetes mellitus resolved following bariatric surgery Surgical History History of embolic filter insertion 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 History of cholecystectomy History of appendectomy Hx of gastric bypass Family History Brother Bleeding disorder Cancer throat Diabetes Father Bleeding disorder factor 5 Diabetes Grandfather Diabetes Sister CVA (cerebral vascular accident) Other Anxiety Arthritis Bowel disease Heart disease Hx of blood clots Hypertension Kidney disease Myocardial infarction Thyroid disorder Social History Smoking Status: Former smoker alcohol intake: current details: 1-2 a year substance use type: does not use what type of physical activity do you participate in: walking and bicycling HPI HPI Chief Complaint: FU Chronic Conditions Details: ASHLEY PABON, is a 68 F who presents to the office today for follow-up of her chronic conditions. No acute concerns at this time. History of hypertension, blood pressure today is at 110/62 mmHg. Currently takes furosemide daily, no chest pain, palpitation syncopal and near syncopal episodes. Als (more content not included)... Normal [facility] Aldosterone, Serumon 024 ALDOSTERONE,S 4.1 ng/dL Normal 0.0-30.0 [facility] Comment on above: Order Comment: Test( s) [id number] developed and its performance characteristicsdetermined by [facility]. It has not been cleared or approvedby the Food and Drug Administration. Result Comment: Perf ormed at: - [facility] [id number] Hotel Staff Member: Niall Du MD, Phone: [phone] Performed By: #### L 501.7300, L501.5800, L500.2500, L3300.1100, L501.7400, L502.0250 ####[facility] [address] [place], [place], [id number] Basic Metabolic Profile (BMP )on 03-18-2024 BUN/CRE 27.0 RATIO High 01-26 [facility] Comment on above: Performed By: #### L 501.7300, L501.5800, L500.2500, L3300.1100, L501.7400, L502.0250 #### [facility] [address] [place], [place], [id number] CA,Total 9.5 mg/dL Normal 8.5-10.1 [facility] Comment on above: Performed By: #### L 501.7300, L501.5800, L500.2500, L3300.1100, L501.7400, L502.0250 #### [facility] [address] [place], [address] Chloride [Moles/Vol] 108 mmol/L High 98-107 [facility] Comment on above: Performed By: #### L 501.7300, L501.5800, L500.2500, L3300.1100, L501.7400, L502.0250 #### [facility] [address] [place], [address] CO2 [Moles/Vol] 32.0 mmol/L Normal 21.0-32.0 [facility] Comment on above: Performed By: #### L 501.7300, L501.5800, L500.2500, L3300.1100, L501.7400, L502.0250 #### [facility] [address] [place], [address] Creatinine [Mass/Vol] 0.89 mg/dL Normal 0.55-1.[address] [facility] Comment on above: Result Comment: The validity of the calculated GFR GFRAA in patients over 70 years has not been determined. Clinical correlation is essential. Performed By: #### L 501.7300, L501.5800, L500.2500, L3300.1100, L501.7400, L502.0250 #### [facility] [address] [place], [address] EST GFR - AA 81 mL/min Normal >60 [facility] Comment on above: Result Comment: Afri can Egyptian GFR Calc Performed By: #### L 501.7300, L501.5800, L500.2500, L3300.1100, L501.7400, L502.0250 #### [facility] [address] [place], [address] GAP 2 Low 5-15 [facility] Comment on above: Performed By: #### L 501.7300, L501.5800, L500.2500, L3300.1100, L501.7400, L502.0250 #### [facility] [address] [place], [address] GFR/1.73 sq M.predicted among non-blacks MDRD (S/P/Bld) [Vol rate/Area] 67 mL/min/{1.73_m2} Normal >60 [facility] Comment on above: Result Comment: Non- GFR Calc Performed By: #### L 501.7300, L501.5800, L500.2500, L3300.1100, L501.7400, L502.0250 #### [facility] [address] [place], [address] Glucose [Mass/Vol] 95 mg/dL Normal 74-106 [facility] Comment on above: Performed By: #### L 501.7300, L501.5800, L500.2500, L3300.1100, L501.7400, L502.0250 #### [facility] [address] [place], [address] Potassium [Moles/Vol] 4.9 mmol/L Normal 3.5-5.[address] [facility] Comment on above: Result Comment: Slig ht Hemolysis, Result may be falsely increased. Performed By: #### L 501.7300, L501.5800, L500.2500, L3300.1100, L501.7400, L502.0250 #### [facility] [address] [place], [address] Sodium [Moles/Vol] 142 mmol/L Normal 136-145 [facility] Comment on above: Performed By: #### L 501.7300, L501.5800, L500.2500, L3300.1100, L501.7400, L502.0250 #### [facility] [address] [place], [address] Urea nitrogen [Mass/Vol] 24 mg/dL High 7-18 [facility] Comment on above: Performed By: #### L 501.7300, L501.5800, L500.2500, L3300.1100, L501.7400, L502.0250 #### [facility] [address] [place], [address] Microalb:Creat Ratio,Random URon 03-18-2024 Creatinine [Mass/Vol] 182.00 mg/dL Normal NO RAN GE EST. [facility] Comment on above: Performed By: #### L 501.7300, L501.5800, L500.2500, L3300.1100, L501.7400, L502.0250 ####[facility] [address] [place], [address] MALB:CRE 16.3 mg/g CRE Normal <30 mg/g CRE [facility] Comment on above: Performed By: #### L 501.7300, L501.5800, L500.2500, L3300.1100, L501.7400, L502.0250 ####[facility] [address] [place], [address] MICROALBUMIN,UR 29.6 mg/L Normal NO RANGE EST. [facility] Comment on above: Performed By: #### L 501.7300, L501.5800, L500.2500, L3300.1100, L501.7400, L502.0250 ####[facility] [address] [place], [address] Osmolality, Serumon 03-18-20 24 OSMOLALITY,SER 318 mOsm/KG High 280-301 [facility] Comment on above: Performed By: #### L 501.7300, L501.5800, L500.2500, L3300.1100, L501.7400, L502.0250 #### [facility] [address] [place], [address] Osmolality, Urineon 03-18-20 24 OSMOLALITY,UR 810 mOsm/KG Normal [facility] Comment on above: Result Comment: Normal Urine Reference Ranges Random: 50 - 1200 mOsm/kg H20 depending on fluid intake Random: >850 mOsm/kg after 12 hour fluid restriction 24 hour: 300 - 900 mOsm/kg H2O Performed By: #### L 501.7300, L501.5800, L500.2500, L3300.1100, L501.7400, L502.0250 #### [facility] [address] [place], [place], [address] Urine Potassiumon 03-18-2024 UR K 82.0 mmol/L Normal Not Establ. [facility] Comment on above: Performed By: #### L 501.7300, L501.5800, L500.2500, L3300.1100, L501.7400, L502.0250 #### [facility] [address] [place], [address] Pulmonary Visit Reporton Pulmonary Visit Report [facility] [place] [address] [place] [address] OFFICE VISIT Date of Service: 03/11/24 MR#: [id number] Acct: [id number] Name: ASHLEY PABON Rep #: [id number] : 1955 Provider: LUIS FERNANDO Kulkarni Age/Sex: 68/F [facility] Status: Signed Assessment and Plan Assessment and Plan (1) Hypoxic respiratory failure: Status: Chronic Qualifiers: Chronicity: chronic Qualified Code(s): J96.11 - Chronic respiratory failure with hypoxia Comment: 1 LPM Plan: Of unclear etiology, suspect pulmonary hypertension. Echocardiogram was unrevealing. The patient is using and benefiting from oxygen. Continue to utilize to maintain a saturation of 89-92%. We discussed that the gold standard for evaluating pulmonary hypertension is a right-sided heart catheterization. 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 She reports that in the next few months she will be working 50 to 70 hours a week. She would prefer to delay additional testing. She has agreed to follow-up with Dr. Urbina in 6 months. They can discuss further testing at that time. She will contact the office with any new or worsening symptoms in the meantime. 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 (3) Obesity: Status: Chronic Qualifiers: Obesity type: due to excess calories Obesity classification: adult class 2 (BMI 35 - 39.9) Serious obesity comorbidity presence: with serious comorbidity Body mass index: BMI 39.0-39.9 Qualified Code(s): E66.01 - Morbid (severe) obesity due to excess calories; Z68.39 - Body mass index [BMI] 39.0-39.9, adult Plan: Continue to encourage weight loss. Plan Details Follow Up: 6 Months (DMB) HPI 6 M FU Chief Complaint: Shortness of breath HPI Comments Details: This patient presents to the office today to discuss recent test results. She is ambulatory, currently on supplemental oxygen and accompanied today by her . She has not recently been seen in the ED or urgent care for any respiratory illness. She has not required any antibiotics or prednisone for any breathing problems. She is not currently on any maintenance inhalers. She does not use albuterol. She is compliant with Lasix 20 mg daily. She does not add salt to her food. However, seems hesitant when asked if she is watching low-sodium diet. She does have shortness of breath on exertion. She has an occasional nonproductive cough. She denies any wheezing, chest tightness, chest pain or palpitations. She has not had any fever, chills or body aches. She is compliant with 2 L/min of supplemental oxygen on exertion and with sleep. Test results personally reviewed with the patient: Echocardiogram completed on October 04, 2023. EF of 55%. No evidence of diastolic dysfunction. Right atrium is mildly enlarged. Intake Vital Signs 09/11/23 07:43 01/14/24 14:28 03/11/24 07:42 Height 5 ft 4 in 5 ft 4 in 5 ft 4 in Weight: 230 lb BMI 39.4 BP 120/77 Blood Pressure Location Lt brachial Position Sitting Respiration 22 H Pulse 97 Pulse Source Monitor Temp 97.7 F L Temperature Source Temporal Artery Pulse Oximetry (%) 94 Oxygen Delivery Method nasal canula Oxygen Flow Rate (L/min) 2 Intake Visit Reasons: 6 M FU Chief Complaint: FU Chronic Conditions [employer] [place] Attendant Required: No DME Vendor: [employer] Accompanied by: Allergies Sulfa (Sulfonamide Antibiotics) Allergy (Verified 03/11/24 10:47) Rash erythromycin base Adverse Reaction (Verified 03/11/24 10:47) Abd cramps/diarrhea Penicillins Adverse Reaction (Verified 03/11/24 10:47) Abd cramps/diarrhea Medications ???Medication ???Instructions ???Recorded ???Confirmed ???Type diphenhydramine 25 1 tab PO QHS PRN 11/03/22 03/11/24 History mg-acetaminophen 500 mg tablet (Tylenol PM Extra Strength) ferrous sulfate 325 mg (65 mg 325 mg PO DAILY 11/03/22 03/11/24 History iron) tablet vitamin B complex (B 1 tab PO DAILY 11/03/22 03/11/24 History Complex-Vitamin B12 tablet) cetirizine 10 mg tablet 10 mg PO BID 02/05/23 03/11/24 History cholecalciferol (vitamin D3) 62.5 2,500 mcg PO DAILY 02/05/23 03/11/24 History mcg (2,500 unit) capsule fluocinonide 0.05 % topical 1 applic topical BID PRN rash #60 02/05/23 03/11/24 Rx ointment grams allopurinol 100 mg tablet 100 mg PO BID #200 TABLETS 06/21/23 03/11/24 Rx tramadol 50 mg tablet 50 mg PO BID PRN pain #60 tabs 08/06/23 03/11/24 Rx gabapentin 300 mg capsule See Rx Instructions PO BID #270 11/01/23 03/11/24 Rx caps fluoxetine 20 mg capsule 20 mg PO DAILY #90 caps 11/08/23 03/11/24 Rx furosemide 20 mg tablet 20 mg PO QDAY #90 (more content not included)... Normal [facility] Basic Metabolic Profile (BMP )on 02-08-2024 BUN/CRE 34.2 RATIO High 01-26 [facility] Comment on above: Performed By: #### L 500.2500 ####[facility] [address] [place], [address] CA,Total 9.4 mg/dL Normal 8.5-10.1 [facility] Comment on above: Performed By: #### L 500.2500 ####[facility] [address] [place], [address] Chloride [Moles/Vol] 106 mmol/L Normal 98-107 [facility] Comment on above: Performed By: #### L 500.2500 ####[facility] [address] [place], [address] CO2 [Moles/Vol] 32.0 mmol/L Normal 21.0-32.0 [facility] Comment on above: Performed By: #### L 500.2500 ####[facility] [address] [place], [address] Creatinine [Mass/Vol] 0.82 mg/dL Normal 0.55-1.[address] [facility] Comment on above: Result Comment: The validity of the calculated GFR GFRAA in patients over 70 years has not been determined. Clinical correlation is essential. Performed By: #### L 500.2500 ####[facility] [address] [place], [address] EST GFR - AA 89 mL/min Normal >60 [facility] Comment on above: Result Comment: Afri can Egyptian GFR Calc Performed By: #### L 500.2500 ####[facility] [address] [place], [address] GAP 1 Low 5-15 [facility] Comment on above: Performed By: #### L 500.2500 ####[facility] [address] [place], [address] GFR/1.73 sq M.predicted among non-blacks MDRD (S/P/Bld) [Vol rate/Area] 74 mL/min/{1.73_m2} Normal >60 [facility] Comment on above: Result Comment: Non- GFR Calc Performed By: #### L 500.2500 ####[facility] [address] [place], [address] Glucose [Mass/Vol] 102 mg/dL Normal 74-106 [facility] Comment on above: Result Comment: Fast ing Glucose result from 100 to 125 mg/dL suggests IMPAIRED HOMEOSTASIS per A.D.A. criteria. Performed By: #### L 500.2500 ####[facility] [address] [place], [address] Potassium [Moles/Vol] 5.8 mmol/L High 3.5-5.[address] [facility] Comment on above: Performed By: #### L 500.2500 ####[facility] [address] [place], [address] Sodium [Moles/Vol] 140 mmol/L Normal 136-145 [facility] Comment on above: Performed By: #### L 500.2500 ####[facility] [address] [place], [address] Urea nitrogen [Mass/Vol] 28 mg/dL High 7-18 [facility] Comment on above: Performed By: #### L 500.2500 ####[facility] [address] [place], [address] CBC W/Diff, Automatedon 10-0 Absolute Lymph 2.15 X10 3/uL Normal 0.83-4.51 [facility] Comment on above: Performed By: #### L 500.4050, L100.0100, L501.9520 #### [facility] [address] [place], [address] Absolute Neut 2.9 X10 3/uL Normal 2.0-7.7 [facility] Comment on above: Performed By: #### L 500.4050, L100.0100, L501.9520 #### [facility] [address] [place], [address] Basophils/100 WBC (Bld) 0.9 % Normal 0-1 [facility] Comment on above: Performed By: #### L 500.4050, L100.0100, L501.9520 #### [facility] [address] [place], [address] Eosinophils/100 WBC (Bld) 3.1 % Normal 0-5 [facility] Comment on above: Performed By: #### L 500.4050, L100.0100, L501.9520 #### [facility] [address] [place], [address] Erythrocyte distribution width (RBC) [Ratio] 13.6 % Normal 11.6-14.6 [facility] Comment on above: Performed By: #### L 500.4050, L100.0100, L501.9520 #### [facility] [address] [place], [address] Hematocrit (Bld) [Volume fraction] 41.7 % Normal 37-47 [facility] Comment on above: Performed By: #### L 500.4050, L100.0100, L501.9520 #### [facility] [address] [place], [address] Hemoglobin (Bld) [Mass/Vol] 13.0 g/dL Normal 12.0-15.0 [facility] Comment on above: Performed By: #### L 500.4050, L100.0100, L501.9520 #### [facility] [address] [place], [address] IG% 0.200 Normal 0.0-0.9 [facility] Comment on above: Result Comment: IG% - Immature Granulocytes (promyelocytes, myelocytes and metamyelocytes) > 1% indicates that a LEFT SHIFT is Present. Performed By: #### L 500.4050, L100.0100, L501.9520 #### [facility] [address] [place], [address] Lymphocytes/100 WBC (Bld) 37.1 % Normal 19-41 [facility] Comment on above: Performed By: #### L 500.4050, L100.0100, L501.9520 #### [facility] [address] [place], [address] MCH (RBC) [Entitic mass] 31.4 pg Normal 27.0-32.0 [facility] Comment on above: Performed By: #### L 500.4050, L100.0100, L501.9520 #### [facility] [address] [place], [address] MCHC (RBC) [Mass/Vol] 31.2 g/dL Low 32-[address] [facility] Comment on above: Performed By: #### L 500.4050, L100.0100, L501.9520 #### [facility] [address] [place], [address] MCV (RBC) [Entitic vol] 100.7 fL High 81-99 [facility] Comment on above: Performed By: #### L 500.4050, L100.0100, L501.9520 #### [facility] [address] [place], [address] Monocytes/100 WBC (Bld) 8.1 % Normal 0-10 [facility] Comment on above: Performed By: #### L 500.4050, L100.0100, L501.9520 #### [facility] [address] [place], [address] Neutrophils/100 WBC (Bld) 50.6 % Normal 47-70 [facility] Comment on above: Performed By: #### L 500.4050, L100.0100, L501.9520 #### [facility] [address] [place], [address] Nucleated RBC (Bld) [#/Vol] 0 10*3/uL Normal 0-5 [facility] Comment on above: Performed By: #### L 500.4050, L100.0100, L501.9520 #### [facility] [address] [place], [address] Platelet mean volume (Bld) [Entitic vol] 11.2 fL Normal 6.2-12.0 [facility] Comment on above: Performed By: #### L 500.4050, L100.0100, L501.9520 #### [facility] [address] [place], [address] Platelets (Bld) [#/Vol] 252 10*3/uL Normal 150-450 [facility] Comment on above: Performed By: #### L 500.4050, L100.0100, L501.9520 #### [facility] [address] [place], [address] RBC (Bld) [#/Vol] 4.14 10*6/uL Low 4.2-5.4 [facility] Comment on above: Performed By: #### L 500.4050, L100.0100, L501.9520 #### [facility] [address] [place], [address] RDW SD 50.8 fl High 35.1-43.9 [facility] Comment on above: Performed By: #### L 500.4050, L100.0100, L501.9520 #### [facility] [address] [place], [address] WBC (Bld) [#/Vol] 5.8 10*3/uL Normal 4.4-11.0 [facility] Comment on above: Performed By: #### L 500.4050, L100.0100, L501.9520 #### [facility] [address] [place], [address] Comprehensive Metabolic Prof ilon 01-14-2024 Albumin [Mass/Vol] 3.5 g/dL Normal 3.2-5.0 [facility] Comment on above: Performed By: #### L 500.4050, L100.0100, L501.9520 #### [facility] [address] [place], [address] Albumin/Globulin [Mass ratio] 1.1 {ratio} Normal 0.9-2.4 [facility] Comment on above: Performed By: #### L 500.4050, L100.0100, L501.9520 #### [facility] [address] [place], [address] ALK P 81 U/L Normal 45-117 [facility] Comment on above: Performed By: #### L 500.4050, L100.0100, L501.9520 #### [facility] [address] [place], [address] ALT [Catalytic activity/Vol] 26 U/L Normal 13-56 [facility] Comment on above: Performed By: #### L 500.4050, L100.0100, L501.9520 #### [facility] [address] [place], [address] AST [Catalytic activity/Vol] 21 U/L Normal 15-37 [facility] Comment on above: Performed By: #### L 500.4050, L100.0100, L501.9520 #### [facility] [address] [place], [address] Bilirubin [Mass/Vol] 0.40 mg/dL Normal 0.20-1.00 [facility] Comment on above: Result Comment: For patients on eltrombopag therapy, use of Dimension Hardin TBIL is not recommended. Performed By: #### L 500.4050, L100.0100, L501.9520 #### [facility] [address] [place], [address] BUN/CRE 26.0 RATIO High 10-20 [facility] Comment on above: Performed By: #### L 500.4050, L100.0100, L501.9520 #### [facility] [address] [place], [address] CA,Total 9.6 mg/dL Normal 8.5-10.1 [facility] Comment on above: Performed By: #### L 500.4050, L100.0100, L501.9520 #### [facility] [address] [place], [address] Chloride [Moles/Vol] 104 mmol/L Normal 98-107 [facility] Comment on above: Performed By: #### L 500.4050, L100.0100, L501.9520 #### [facility] [address] [place], [address] CO2 [Moles/Vol] 32.0 mmol/L Normal 21.0-32.0 [facility] Comment on above: Performed By: #### L 500.4050, L100.0100, L501.9520 #### [facility] [address] [place], [address] Creatinine [Mass/Vol] 0.92 mg/dL Normal 0.55-1.[address] [facility] Comment on above: Result Comment: The validity of the calculated GFR GFRAA in patients over 70 years has not been determined. Clinical correlation is essential. Performed By: #### L 500.4050, L100.0100, L501.9520 #### [facility] [address] [place], [address] EST GFR - AA 78 mL/min Normal >60 [facility] Comment on above: Result Comment: Afri can Egyptian GFR Calc Performed By: #### L 500.4050, L100.0100, L501.9520 #### [facility] [address] [place], [address] GAP 3 Low 5-15 [facility] Comment on above: Performed By: #### L 500.4050, L100.0100, L501.9520 #### [facility] [address] [place], [address] GFR/1.73 sq M.predicted among non-blacks MDRD (S/P/Bld) [Vol rate/Area] 64 mL/min/{1.73_m2} Normal >60 [facility] Comment on above: Result Comment: Non- GFR Calc Performed By: #### L 500.4050, L100.0100, L501.9520 #### [facility] [address] [place], [address] Globulin (S) [Mass/Vol] 3.1 g/dL Normal 2.2-4.2 [facility] Comment on above: Performed By: #### L 500.4050, L100.0100, L501.9520 #### [facility] [address] [place], [address] Glucose [Mass/Vol] 89 mg/dL Normal 74-106 [facility] Comment on above: Performed By: #### L 500.4050, L100.0100, L501.9520 #### [facility] [address] [place], [address] Potassium [Moles/Vol] 5.6 mmol/L High 3.5-5.[address] [facility] Comment on above: Performed By: #### L 500.4050, L100.0100, L501.9520 #### [facility] [address] [place], [address] Sodium [Moles/Vol] 139 mmol/L Normal 136-145 [facility] Comment on above: Performed By: #### L 500.4050, L100.0100, L501.9520 #### [facility] [address] [place], [address] T PROT 6.6 g/dL Normal 6.4-8.2 [facility] Comment on above: Performed By: #### L 500.4050, L100.0100, L501.9520 #### [facility] [address] [place], [address] Urea nitrogen [Mass/Vol] 24 mg/dL High 7-18 [facility] Comment on above: Performed By: #### L 500.4050, L100.0100, L501.9520 #### [facility] [address] [place], [address] Internal Medicine Office Vis itokevin 01-14-2024 Internal Medicine Office Visit [facility] [address] [place] [address] [place] [address] OFFICE VISIT Date of Service: 01/14/24 MR#: [id number] Acct: [id number] Name: ASHLEY PABON Rep #: [id number] : 1955 Provider: Dr. 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: No Is patient in pain?: No Allergies Sulfa (Sulfonamide Antibiotics) Allergy (Verified 01/14/24 14:16) Rash erythromycin base Adverse Reaction (Verified 01/14/24 14:16) Abd cramps/diarrhea Penicillins Adverse Reaction (Verified 01/14/24 14:25) Abd cramps/diarrhea Medications ???Medication ???Instructions ???Recorded ???Confirmed ???Type diphenhydramine 25 1 tab PO QHS PRN 11/03/22 01/14/24 History mg-acetaminophen 500 mg tablet (Tylenol PM Extra Strength) ferrous sulfate 325 mg (65 mg 325 mg PO DAILY 11/03/22 01/14/24 History iron) tablet furosemide 20 mg tablet 20 mg PO .PRN 11/03/22 01/14/24 History vitamin B complex (B 1 tab PO DAILY 11/03/22 01/14/24 History Complex-Vitamin B12 tablet) denosumab 60 mg/mL subcutaneous 60 mg subcut [id number] #1 mL 12/04/22 01/14/24 Rx syringe (Prolia) cetirizine 10 mg tablet 10 mg PO BID 02/05/23 01/14/24 History cholecalciferol (vitamin D3) 62.5 2,500 mcg PO DAILY 02/05/23 01/14/24 History mcg (2,500 unit) capsule fluocinonide 0.05 % topical 1 applic topical BID PRN rash #60 02/05/23 01/14/24 Rx ointment grams allopurinol 100 mg tablet 100 mg PO BID #200 TABLETS 06/21/23 01/14/24 Rx tramadol 50 mg tablet 50 mg PO BID PRN pain #60 tabs 08/06/23 01/14/24 Rx gabapentin 300 mg capsule See Rx Instructions PO BID #270 11/01/23 01/14/24 Rx caps levothyroxine 75 mcg tablet 75 mcg PO DAILY #60 tabs 11/06/23 01/14/24 Rx fluoxetine 20 mg capsule 20 mg PO DAILY #90 caps 11/08/23 01/14/24 Rx warfarin 5 mg tablet See Rx Instructions PO DAILY 12/07/23 01/14/24 History Have you fallen in the past year?: Yes (12/2023) [facility] Medical History Hypertension Abnormal US (ultrasound) of abdomen Pancreatic cyst Bowel incontinence Abdominal pain Chronic fatigue Nocturnal hypoxemia Health care maintenance Hypothyroidism Type 2 diabetes mellitus Hypersomnolence GERD (gastroesophageal reflux disease) Osteoporosis Osteopenia Osteoarthritis Kidney stones Irritable bowel syndrome Hives Gout Gastrointestinal problem Gallstones Diabetes Cancer Hx of blood clots Hx: UTI (urinary tract infection) Hx of fracture History of back problems Arthritis Allergies Cancer Anxiety Chronic pain Kidney disease GERD (gastroesophageal reflux disease) On home oxygen therapy Pulmonary embolism DVT (deep venous thrombosis) Arthritis Kannan filter in place Asthma History of diabetes mellitus resolved following bariatric surgery Surgical History History of embolic filter insertion 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 History of cholecystectomy History of appendectomy Hx of gastric bypass Family History Brother Bleeding disorder Cancer throat Diabetes Father Bleeding disorder factor 5 Diabetes Grandfather Diabetes Sister CVA (cerebral vascular accident) Other Anxiety Arthritis Bowel disease Heart disease Hx of blood clots Hypertension Kidney disease Myocardial infarction Thyroid disorder Social History Smoking Status: Former smoker alcohol intake: current details: 1-2 a year substance use type: does not use what type of physical activity do you participate in: walking and bicycling HPI HPI Chief Complaint: FU Chronic Conditions Details: ASHLEY PABON, is a 68 F who presents to the office today for follow-up of her chronic medical conditions. No acute concerns at this time. History of osteoporosis on Prolia. Received her injection today and tolerated it well. No recent fractures. Also on calcium and vitamin D supplements. History of DVT/PE on Coumadin, checks her INR at home and she states that her INR today was at 4.8. Denies increased bleeding or bruising. Admits t (more content not included)... Normal [facility] Thyroid Stim Hormone (TSH)on 01-14-2024 TSH 1.180 uIU/mL Normal 0.358-3.740 [facility] Comment on above: Performed By: #### L 500.4050, L100.0100, L501.9520 #### [facility] [address] [place], [address] Uric Acidon 01-14-2024 URIC 3.7 mg/dL Normal 2.6-6.0 [facility] Comment on above: Result Comment: The drugs N-Acetylcysteine and Metamizole may falsely depress this assay. Performed By: #### L 506.1000, L501.1400 ####[facility] [id number] [place], [place], [address] Vitamin D,25 Hydroxyon 01-13 Vitamin D 25-OH 56.2 ng/mL Normal [facility] Comment on above: Result Comment: Greta min D 25(OH) Status Range Deficiency <20 ng/mL (50nmol/L) Insufficiency 20 - 30 ng/mL (50 - 75 nmol/L) Sufficiency 30 - 100 ng/mL (75 - 250 nmol/L) Toxicity >100 ng/mL (>250 nmol/L) Performed By: #### L 506.1000, L501.1400 ####[facility] [id number] [place], [place], [address] [facility] ASHLEY PABON ([id number]) 1955 F Date Time Provider Department 12/28/23 BLAS BARBA3 During your visit today, we recorded the following information about you: Jossy Han 12/28/2023 9:29 AM Signed Called to go over Scheduled Imaging appt and to schedule follow up appt with nataliaChidi Calin Han. 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 - Lancets lancets Test blood sugar(s) 1 [...] as instructed as directed. 2L PM - diphenhyd/phenyleph/acetami nop (TYLENOL ALLERGY M-S NIGHTTIME ORAL) Take by [...] once daily. Problem List As Of Date 12/28/2023 Noted Resolved PMH - PAST MEDICAL HISTORY [...] bowel habits [R19.8] 05/07/2019 Pelvic floor tension [M62.89] more content not included)... [facility] Telephone (PHAMTE) ASHLEY PABON ([id number]) 1955 F Date Time Provider Department 11/23/23 SILVA COBB During your visit today, we recorded the following information about you: Silva Cobb [facility] 11/23/2023 3:00 PM Signed Spoke to Kathia in Dr. Espinosa's office. Patient's INRs and warfarin are managed by that office since october. Will discharge her from coumadin clinic. Mimi (Shrimping Boat Captain)Kofi 11/23/2023 3:02 PM Signed Pharmacy Anticoagulation Clinic Discharge completed at this time. Patient may be re-referred, if deemed appropriate. Kofi Le, Tennis Ball Coverer Hand (manager internet) [facility] Allergies As of Date: 11/23/2023 Noted Allergy Reaction ALESSE-21 (ESTROGENS) 05/16/2004 12 [...] - Rash Date Reviewed: 12/13/2022 Reviewed by: Blas Barba MD - Fully Assessed Reason for Visit: PAC TRANSFER OF CARE [Other] Prescriptions as of 11/23/2023 - warfarin (COUMADIN) 5 mg tablet Take 5mg (1 tab) by mouth daily or as directed by Coumadin Clinic - iv contrast (will be provided with [...] the MR contrast administration guidelines link. - Lancets lancets Test blood sugar(s) 1 [...] as instructed as directed. 2L PM - diphenhyd/phenyleph/acetami nop (TYLENOL ALLERGY M-S NIGHTTIME ORAL) Take by [...] once daily. Problem List As Of Date 11/23/2023 Noted Resolved PMH - PAST MEDICAL HISTORY [...] *08/01/2018 01/09/2020 On bridging treatment with lovenox [Z79.01 (more content not included)... Normal [facility] CNPNon 10-26-2023 CNPN Telephone (PHAMTE) PEPPERASHLEY Shannan ([id number]) 1955 F Date Time Provider Department 10/26/23 DINA ANGULO During your visit today, we recorded the following information about you: Dina Angulo [facility] 10/26/2023 1:37 PM Signed [facility] Anticoagulation Episode Summary Anticoagulation Care Providers Provider Role Specialty Phone number Bg Beverly MD Referring Family Medicine [phone] Ashley Campbell Pepper is a 68 year old year old female patient being evaluated today for a Telemanagement visit. Patient is currently on the following anticoagulant(s) Warfarin. 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 Dina Angulo RPh 11/09/2023 11:38 AM Signed Patient was due to test INR today. Will continue to monitor for results. Follow up in one week if no results received. 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 - Lancets lancets Test blood sugar(s) 1 [...] as instructed as directed. 2L PM - diphenhyd/phenyleph/acetami nop (TYLENOL ALLERGY M-S NIGHTTIME ORAL) Take by mouth. - cyanocobalamin (VITAMIN B-12) 100 mcg tab Take 100 mcg by mouth once daily. - biotin 1 mg cap Take by mouth once daily. - Cholecalciferol, Vitamin D3, (VITAMIN D-3) 50 mcg (2,000 unit) cap Take 1 capsule by mouth (more content not included)... Normal [facility] CNCOon 10-05-2023 CNCO Letter Text Normal [facility] CNPNon 09-07-2023 CNPN Telephone (PHAMTE) ASHLEY PABON ([id number]) 1955 F Date Time Provider Department 09/07/23 SILVA COBB PHAMTE During your visit today, we recorded the following information about you: Silva Cobb [facility] 09/07/2023 1:43 PM Signed [facility] Anticoagulation Episode Summary Anticoagulation Care Providers Provider Role Specialty Phone number Bg Beverly MD Referring Family Medicine [phone] Ashley Pabon is a 67 year old year old female patient being evaluated today for a Telemanagement visit. Patient is currently on the following anticoagulant(s) Warfarin. Labs PT INR (no units) Date Value 03/03/2022 1.5 biotel 02/03/2022 3.7 07/06/2021 2.4 (biotel) INR Home CoaguChek (no units) Date Value 09/07/2023 2.2 08/28/2023 4.3 08/14/2023 4.3 Hemoglobin (g/dL) Date Value 11/26/2020 12.8 [...] INR goal: 2.0-3.0 Assessment: INR result of 2.2 is therapeutic Plan: Current Warfarin Dosing As of 09/07/2023 Full warfarin instructions: 2.5 mg every Mon, Wed, Fri; 5 mg all other days Left voice message Advised patient to continue current weekly dose as noted above Next home INR check scheduled on 09/20/2023 Silva Cobb [facility] Clinical Pharmacist, Pharmacy Anticoagulation Clinic Pharmacy [facility]tico[facility] Clinic Pager: [phone]. Janis Ott [facility] 09/20/2023 12:18 PM Signed Patient was due to test INR today. Will continue to monitor for results. Follow up in one week if no results received. Janis Ott [facility] Janis Ott [facility] 09/27/2023 2:42 PM Signed Ashley Pabon was called and reminded to test INR today or as soon as possible. Janis Ott [facility] Janis Ott [facility] 10/04/2023 9:55 AM Signed Ashley Pabon was called, lvmx + MyChart and reminded to test INR today or as soon as possible. Patient added to discharge list Janis Ott [facility] Mimi (Kadmon)Kofi 10/05/2023 9:50 AM Signed DISCHARGE No pending home meter results. Letter sent. Updated tracker. Patient will need to either establish care with a [facility] MD PR[facility] if she responds to our letter. Patient's last OV with referring provider was in 2021 and patient no longer is established with PCP. Kofi Le (Kadmon) Allergies As of Date: 09/07/2023 Noted Allergy Reaction ALESSE-21 (ESTROGENS) 05/16/2004 12 [...] - Rash Date Reviewed: 12/13/2022 Reviewed by: Blas Barba MD - Fully Assessed Prescriptions as of 10/23/2023 - warfarin (COUMADIN) 5 mg tablet Take 5mg (1 tab) by mouth daily or as directed by Coumadin Clinic - iv contrast (will be provided with [...] the MR contrast administration guidelines link. - Lancets lancets Test blood sugar(s) 1 [...] as instructed as directed. 2L PM - diphenhyd/phenyleph/acetam (more content not included)... Normal [facility] Qiana 08-28-2023 RAFAELN Telephone (InktankPRE) ASHLEY PABON ([id number]) 1955 F Date Time Provider Department 08/28/23 SILVA COBB During your visit today, we recorded the following information about you: Silva Cobb, [facility] 08/28/2023 10:40 AM Signed [facility] Anticoagulation Clinic Anticoagulation Episode Summary Anticoagulation Care Providers Provider Role Specialty Phone number Bg Beverly MD Referring Family Medicine [phone] Ashley Pabon is a 67 year old year old female patient being evaluated today for a Telemanagement visit. Patient is currently on the following anticoagulant(s) Warfarin. Labs PT INR (no units) Date Value 03/03/2022 1.5 biotel 02/03/2022 3.7 07/06/2021 2.4 (biotel) INR Home CoaguChek (no units) Date Value 08/28/2023 4.3 08/14/2023 4.3 07/18/2023 2.7 Hemoglobin (g/dL) Date Value 11/26/2020 12.8 [...] result of 4.3 is SUPRAtherapeutic due to: APAP or NSAID use Plan: Current Warfarin Dosing As of 08/28/2023 Full warfarin instructions: 08/27: Hold; Otherwise 2.5 mg every Mon, Wed, Fri; 5 mg all other days Called and spoke to patient/caregiver Advised patient to hold 1 dose then decrease current regimen as noted above Next home INR check scheduled on 09/04/2023 Patient verbalizes understanding of the plan. Silva Cobb [facility] Clinical Pharmacist, Pharmacy Anticoagulation Clinic Pharmacy Anticoagulation Clinic Pager: [phone]. Adriane Cintron RPh 09/04/2023 3:00 PM Signed Patient was due to test INR today. Will continue to monitor for results. Follow up in one week if no results received. Adriane Cintron tae Allergies As of Date: 08/28/2023 Noted Allergy Reaction ALESSE-21 (ESTROGENS) 05/16/2004 12 [...] - Rash Date Reviewed: 12/13/2022 Reviewed by: Blas Barba MD - Fully Assessed Reason for Visit: Anticoagulation Telephone Fu [148] Cmt: Home INR result Prescriptions as of 09/04/2023 - warfarin (COUMADIN) 5 mg tablet Take 5mg (1 tab) by mouth daily or as directed by Coumadin Clinic - iv contrast (will be provided with [...] the MR contrast administration guidelines link. - Lancets lancets Test blood sugar(s) 1 [...] as instructed as directed. 2L PM - diphenhyd/phenyleph/acetami nop (TYLENOL ALLERGY M-S NIGHTTIME ORAL) Take by [...] once daily. 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 Normal [facility] 08-14-2023 CNPN Telephone (PHARST) PEPPERASHLEY Shannan ([id number]) 1955 F Date Time Provider Department 08/14/23 SILVA COBB PHARSBella During your visit today, we recorded the following information about you: Silva Cobb [facility] 08/14/2023 12:15 PM Signed [facility] Anticoagulation Episode Summary Anticoagulation Care Providers Provider Role Specialty Phone number Bg Beverly MD Referring Family Medicine [phone] sAhley Pabon is a 67 year old year old female patient being evaluated today for a Telemanagement visit. Patient is currently on the following anticoagulant(s) Warfarin. Labs PT INR (no units) Date Value 03/03/2022 1.5 biotel 02/03/2022 3.7 07/06/2021 2.4 (biotel) INR Home CoaguChek (no units) Date Value 08/14/2023 4.3 07/18/2023 2.7 07/11/2023 2.3 Hemoglobin (g/dL) Date Value 11/26/2020 12.8 [...] result of 4.3 is SUPRAtherapeutic due to: Decreased vitamin k intake Plan: Current Warfarin Dosing As of 08/14/2023 Full warfarin instructions: 08/13: Hold; Otherwise 2.5 mg every Tue; 5 mg all other days Called and spoke to patient/caregiver Advised patient to hold a dose, decrease a dose then resume current warfarin dose Next home INR check scheduled on 08/21/2023 Patient verbalizes understanding of the plan. Silva Cobb RPh Clinical Pharmacist, Pharmacy Anticoagulation Clinic [facility] Pager: [phone]. Silva Cobb RPh 08/21/2023 3:37 PM Signed Patient was due to test INR today. Will continue to monitor for results. Follow up in one week if no results received. Silva Cobb RPh Allergies As of Date: 08/14/2023 Noted Allergy Reaction ALESSE-21 (ESTROGENS) 05/16/2004 12 [...] - Rash Date Reviewed: 12/13/2022 Reviewed by: lBas Barba MD - Fully Assessed Reason for Visit: Anticoagulation Telephone Fu [148] Cmt: Home INR result Prescriptions as of 08/21/2023 - warfarin (COUMADIN) 5 mg tablet Take 5mg (1 tab) by mouth daily or as directed by [facility] - iv contrast (will be provided with [...] the MR contrast administration guidelines link. - Lancets lancets Test blood sugar(s) 1 [...] as instructed as directed. 2L PM - diphenhyd/phenyleph/acetami nop (TYLENOL ALLERGY M-S NIGHTTIME ORAL) Take by [...] once daily. 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 Normal [facility] Basophil percentageOrdered B y: Yanique Espinosa on 08-06-2023 Chloride [Moles/Vol] 105 mmol/L 98-107 [facility] Glucose [Mass/Vol] 84 mg/dL 74-106 [facility] Potassium [Moles/Vol] 4.9 mmol/L 3.5-5.[address] [facility] Sodium [Moles/Vol] 141 mmol/L 136-145 [facility] Laboratory - Chemistry and C hemistry - challengeOrdered By: Yanique Espinosa on 08-06-2023 CO2 [Moles/Vol] 31.0 mmol/L 21.0-32.0 [facility] Urea nitrogen/Creatinine [Mass ratio] 29.6 mg/mg 10-20 [facility] Laboratory - Hematology and Cell countson 08-06-2023 HbA1c (Bld) [Mass fraction] 5.8 % 4.2-6.3 [facility] No Panel InformationOrdered By: Yanique Espinosa on 08-06-2023 Estimated GFR (MDRD) Amer 79 mL/min >60 [facility] Comment on above: GFR Calc Estimated GFR (MDRD) Non-Af Amer 65 mL/min >60 [facility] Comment on above: Non- GFR Calc Serum or plasma calcium des urement (mass/volume)Ordered By: Yanique Espinosa on 08-06-2023 Calcium [Mass/Vol] 9.0 mg/dL 8.5-10.1 [facility] Serum or plasma creatinine m easurement (mass/volume)Ordered By: Yanique Espinosa on 08-06-2023 Creatinine [Mass/Vol] 0.91 mg/dL 0.55-1.[address] [facility] Comment on above: The validity of the calculated GFR & GFRAA in patients over 70 years has not been determined. Clinical correlation is essential. Serum or plasma urea nitroge n measurement (mass/volume)Ordered By: Yanique Espinosa on 08-06-2023 Urea nitrogen [Mass/Vol] 27 mg/dL 7-18 [facility] Thin prep Papanicolaou smear with manual screeningOrdered By: Yanique Espinosa on 08-06-2023 Thin prep Papanicolaou smear with manual screening 5 5-15 [facility] CNPNon 07-19-2023 CNPN Telephone (PHAMTE) ASHLEY PABON ([id number]) 1955 F Date Time Provider Department 07/19/23 JANIS OTT During your visit today, we recorded the following information about you: Janis Ott, [facility] 07/19/2023 8:22 AM Signed [facility] Anticoagulation Clinic Anticoagulation Episode Summary Anticoagulation Care Providers Provider Role Specialty Phone number Bg Beverly MD Referring Family Medicine [phone] Ashley Pabon is a 67 year old year old female patient being evaluated today for a Telemanagement visit. Patient is currently on the following anticoagulant(s) Warfarin. 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 Silva Cobb tae 07/26/2023 10:50 AM Signed Patient was due to test INR today. Will continue to monitor for results. Follow up in one week if no results received. Silva Cobb [facility] Janis Ott [facility] 08/02/2023 2:20 PM Signed Ashley Pabon was called, lvmx and reminded to test INR today or as soon as possible. Janis Ott [facility] Jains Ott [facility] 08/09/2023 12:11 PM Signed Ashley Pabon was called, lvmx and reminded to test INR today or as soon as possible. Patient added to PAC discharge list. 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 - Lancets lancets Test blood sugar(s) 1 [...] as instructed as directed. 2L PM - diphe (more content not included)... Normal [facility] 07-11-2023 CNPN Telephone (PHAPRE) ASHLEY PABON ([id number]) 1955 F Date Time Provider Department 07/11/23 MARVIN ROBERTSON During your visit today, we recorded the following information about you: Marvin Robertson [facility] 07/11/2023 10:18 AM Signed [facility] Anticoagulation Clinic Anticoagulation Episode Summary Anticoagulation Care Providers Provider Role Specialty Phone number Bg Beverly MD Referring Family Medicine [phone] Ashley Pabon is a 67 year old year old female patient being evaluated today for a Telemanagement visit. Patient is currently on the following anticoagulant(s) Warfarin. 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 Kristy Carrillo RPh 07/18/2023 10:17 AM Signed Patient was due to test INR today will continue to monitor for results. Kristy Carrillo, PharmD Pharmacy Anticoagulation Clinic Allergies As of Date: 07/11/2023 Noted Allergy Reaction ALESSE-21 (ESTROGENS) 05/16/2004 12 [...] - Rash Date Reviewed: 12/13/2022 Reviewed by: Blas Barba MD - Fully Assessed Reason for Visit: Anticoagulation Telephone Fu [148] Cmt: INR Home Test Result Primary Visit Diagnosis:Factor 5 Leiden mutation, heterozygous (HCC) [D68.51] Other Visit Diagnoses:History of pulmonary embolus (PE) [Z86.711] correction current use of anticoagulant [Z79.01] Prescriptions as of 07/18/2023 - warfarin (COUMADIN) 5 mg tablet Take 5mg (1 tab) by mouth daily or as directed by Coumadin Clinic - iv contrast (will be provided with [...] the MR contrast administration guidelines link. - Lancets lancets Test blood sugar(s) 1 [...] as instructed as directed. 2L PM - diphenhyd/phenyleph/acetami nop (TYLENOL ALLERGY M-S NIGHTTIME ORAL) Take by mouth. - cyanocobalamin (VITAMIN B-12) 100 mcg tab Take 100 mcg by mouth once daily. - biotin 1 mg cap Take by mouth once daily. - Cholecalciferol, Vitamin D3, (VITAMIN D-3) 50 mcg (2,000 unit) cap Take 1 capsule by mouth once daily. - ferrous sulfate (IRON ORAL) Take by mouth once daily. Problem List (more content not included)... Normal [facility] Serum or plasma thyroid stim ulating hormone (TSH) measurement (units/volume)Ordered By: Yanique Espinosa on 06-20-2023 TSH Qn 0.46 uIU/mL 0.358-3.74 [facility] 06-11-2023 [facility] Telephone (BONNY) ASHLEY PABON ([id number]) 1955 F Date Time Provider Department 06/11/23 ERICA TEJEDA During your visit today, we recorded the following information about you: Erica Tejeda RPh 06/11/2023 10:04 AM Signed [facility]ulatory Pharmacy Anticoagulation Clinic Anticoagulation Episode Summary Anticoagulation Care Providers Provider Role Specialty Phone number Bg Beverly MD Referring Family Medicine [phone] Ashley Pabon is a 67 year old year old female patient being evaluated today for a Telemanagement visit. Patient is currently on the following anticoagulant(s) Warfarin. Labs PT INR (no units) Date Value 03/03/2022 1.5 biotel 02/03/2022 3.7 07/06/2021 2.4 (biotel) INR Home CoaguChek (no units) Date Value 06/10/2023 3.8 05/20/2023 2.4 05/02/2023 2.3 CrCl cannot be calculated (Patient's most recent [...] INR goal: 2.0-3.0 Assessment: INR result of 3.8 is SUPRAtherapeutic due to: unknown cause - did not speak to patient Plan: Current Warfarin Dosing As of 06/11/2023 Full warfarin instructions: 06/10: 2.5 mg; Otherwise 2.5 mg every Tue; 5 mg all other days Left voice message Advised patient to decrease dose for 1 day only then resume weekly regimen Next INR check due on 06/25/2023 Patient instructed to call [facility] at [phone] with any questions or concerns. Erica Tejeda [facility] Clinical Pharmacist, Pharmacy Anticoagulation Clinic Pharmacy Anticoagulation Clinic Pager: [phone] Janis Ott [facility] 06/25/2023 2:22 PM Signed Patient was due to test INR today. Will continue to monitor for results. Follow up in one week if no results received. Janis Ott RPh Allergies As of Date: 06/11/2023 Noted Allergy Reaction ALESSE-21 (ESTROGENS) 05/16/2004 12 [...] - Rash Date Reviewed: 12/13/2022 Reviewed by: Blas Barba MD - Fully Assessed Reason for Visit: Anticoagulation Telephone Fu [148] Cmt: Home INR Result Prescriptions as of 07/02/2023 - warfarin (COUMADIN) 5 mg tablet Take 5mg (1 tab) by mouth daily or as directed by Coumadin Clinic - iv contrast (will be provided with [...] the MR contrast administration guidelines link. - Lancets lancets Test blood sugar(s) 1 [...] as instructed as directed. 2L PM - diphenhyd/phenyleph/acetami nop (TYLENOL ALLERGY M-S NIGHTTIME ORAL) Take by [...] once daily. 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 Normal [facility] CNPNon 05-21-2023 CNPN Telephone (BONNY) ASHLEY PABON ([id number]) 1955 F Date Time Provider Department 05/21/23 ERICA TEJEDA During your visit today, we recorded the following information about you: Erica Tejeda RPh 05/21/2023 11:42 AM Signed [facility]ulatory Pharmacy Anticoagulation Clinic Anticoagulation Episode Summary Anticoagulation Care Providers Provider Role Specialty Phone number Bg Beverly MD Referring Family Medicine [phone] Ashley Pabon is a 67 year old year old female patient being evaluated today for a Telemanagement visit. Patient is currently on the following anticoagulant(s) Warfarin. Labs PT INR (no units) Date Value 03/03/2022 1.5 biotel 02/03/2022 3.7 07/06/2021 2.4 (biotel) INR Home CoaguChek (no units) Date Value 05/20/2023 2.4 05/02/2023 2.3 04/12/2023 2.7 CrCl cannot be calculated (Patient's most [...] therapeutic Plan: Current Warfarin Dosing As of 05/21/2023 Full warfarin instructions: 2.5 mg every Tue; 5 mg all other days Left voice message Advised patient to continue current weekly dose as noted above Next INR check due on 06/04/2023 Patient instructed to call [facility] at [phone] with any questions or concerns. Erica Tejeda [facility] Clinical Pharmacist, Pharmacy Anticoagulation Clinic Pharmacy Anticoagulation Clinic Pager: [phone] Erica Tejeda RPh 06/04/2023 3:49 PM Signed Patient was due to test INR today. Will continue to monitor for results. Will follow up in one week if no results received. Allergies As of Date: 05/21/2023 Noted Allergy Reaction ALESSE-21 (ESTROGENS) 05/16/2004 12 [...] - Rash Date Reviewed: 12/13/2022 Reviewed by: Blas Barba MD - Fully Assessed Reason for Visit: Anticoagulation Telephone Fu [148] Cmt: Home INR Result Prescriptions as of 06/04/2023 - warfarin (COUMADIN) 5 mg tablet Take 5mg (1 tab) by mouth daily or as directed by Coumadin Clinic - iv contrast (will be provided with [...] the MR contrast administration guidelines link. - Lancets lancets Test blood sugar(s) 1 [...] as instructed as directed. 2L PM - diphenhyd/phenyleph/acetami nop (TYLENOL ALLERGY M-S NIGHTTIME ORAL) Take by [...] once daily. Problem List As Of Date 05/21/2023 Noted Resolved PMH - PAST MEDICAL HISTORY [...] [R10.9] 02/24/2010 04/14/2013 Osteoarthritis of lumbar spine (more content not included)... Normal [facility] Absolute lymphocyte countOrd ered By: Yanique Espinosa on 05-07-2023 Lymphocytes Auto (Unsp spec) [#/Vol] 2.63 10*3/uL 0.83-4.51 [facility] Automated lymphocyte count a s percentage of total leukocytesOrdered By: Yanique Wisemarky on 05-07-2023 Lymphocytes/100 WBC Auto (Unsp spec) 29.9 % 19-41 [facility] Basophil percentageOrdered B y: Deamary Farnsworthdevin on 05-07-2023 Basophils/100 WBC (Bld) 1.0 % 0-1 [facility] Chloride [Moles/Vol] 108 mmol/L 98-107 [facility] Eosinophils/100 WBC (Bld) 1.9 % 0-5 [facility] Glucose [Mass/Vol] 115 mg/dL 74-106 [facility] Comment on above: Fasting Glucose resu lt from 100 to 125 mg/dL suggests IMPAIRED HOMEOSTASIS per A.D.A. criteria. Hemoglobin (Bld) [Mass/Vol] 13.8 g/dL 12.0-15.0 [facility] Monocytes/100 WBC (Bld) 6.3 % 0-10 [facility] Neutrophils (Bld) [#/Vol] 5.3 10*3/uL 2.0-7.7 [facility] Neutrophils/100 WBC (Bld) 60.6 % 47-70 [facility] Potassium [Moles/Vol] 4.9 mmol/L 3.5-5.[address] [facility] Sodium [Moles/Vol] 139 mmol/L 136-145 [facility] WBC (Bld) [#/Vol] 8.8 10*3/uL 4.4-11.0 [facility] Determination of erythrocyte mean corpuscular volume (MCV)Ordered By: lakshmilehighmary Espinosa on 05-07-2023 MCV (RBC) [Entitic vol] 97.8 fL 81-99 [facility] Erythrocyte distribution wid th ratioOrdered By: [facility] Javadlakhwindermarky on 05-07-2023 Erythrocyte distribution width (RBC) [Ratio] 13.5 % 11.6-14.6 [facility] Erythrocyte distribution wid th standard deviationOrdered By: [facility] Javadmarky on 05-07-2023 Erythrocyte distribution width (RBC) [Entitic vol] 48.3 fL 35.1-43.9 [facility] Hematocrit Auto (Bld) [Volum e fraction]Ordered By: Yanique Espinosa on 05-07-2023 Hematocrit (Bld) [Volume fraction] 43.7 % 37-47 [facility] Immature granulocytes/100 WB C Auto (Bld)Ordered By: Yanique Espinosa on 05-07-2023 Immature granulocytes/100 WBC (Bld) 0.300 % 0.0-0.9 [facility] Comment on above: IG% - Immature Granu locytes (promyelocytes, myelocytes and metamyelocytes) > 1% indicates that a LEFT SHIFT is Present. Laboratory - Chemistry and C hemistry - challengeOrdered By: Yanique Espinosa on 05-07-2023 CO2 [Moles/Vol] 28.0 mmol/L 21.0-32.0 [facility] Urea nitrogen/Creatinine [Mass ratio] 40.4 mg/mg 10-20 [facility] Laboratory - Hematology and Cell countson 05-07-2023 HbA1c (Bld) [Mass fraction] 6.0 % 4.2-6.3 [facility] Laboratory - Hematology and Cell countsOrdered By: Yanique Espinosa on 05-07-2023 MCH (RBC) [Entitic mass] 30.9 pg 27.0-32.0 [facility] MCHC (RBC) [Mass/Vol] 31.6 g/dL 32-[address] [facility] Nucleated RBC/100 WBC (Bld) [Ratio] 0 % 0-5 [facility] Platelets (Bld) [#/Vol] 321 10*3/uL 150-450 [facility] No Panel InformationOrdered By: Yanique Espinosa on 05-07-2023 Estimated GFR (MDRD) Amer 68 mL/min >60 [facility] Comment on above: GFR Calc Estimated GFR (MDRD) Non-Af Amer 56 mL/min >60 [facility] Comment on above: Non- GFR Calc Platelet mean volume Mu-Ec ker (Bld) [Entitic vol]Ordered By: Yanique Espinosa on 05-07-2023 Platelet mean volume (Bld) [Entitic vol] 11.3 fL 6.2-12.0 [facility] RBC Auto (Bld) [#/Vol]Ordere d By: Yanique Espinosa on 05-07-2023 RBC (Bld) [#/Vol] 4.47 10*6/uL 4.2-5.4 [facility] Serum or plasma calcium des urement (mass/volume)Ordered By: Yanique Espinosa on 05-07-2023 Calcium [Mass/Vol] 9.6 mg/dL 8.5-10.1 [facility] Serum or plasma creatinine m easurement (mass/volume)Ordered By: Yanique Espinosa on 05-07-2023 Creatinine [Mass/Vol] 1.04 mg/dL 0.55-1.[address] [facility] Comment on above: The validity of the calculated GFR & GFRAA in patients over 70 years has not been determined. Clinical correlation is essential. Serum or plasma thyroid stim ulating hormone (TSH) measurement (units/volume)Ordered By: Yanique Espinosa on 05-07-2023 TSH Qn 0.24 uIU/mL 0.358-3.74 [facility] Serum or plasma urea nitroge n measurement (mass/volume)Ordered By: Yanique Espinosa on 05-07-2023 Urea nitrogen [Mass/Vol] 42 mg/dL 7-18 [facility] Thin prep Papanicolaou smear with manual screeningOrdered By: Yanique Espinosa on 05-07-2023 Thin prep Papanicolaou smear with manual screening 3 5-15 [facility] CNPNon 05-02-2023 CNPN Telephone (PHAMTE) ASHLEY PABON ([id number]) 1955 F Date Time Provider Department 05/02/23 KRISTY CARRILLO During your visit today, we recorded the following information about you: Kristy Carrillo [facility] 05/02/2023 1:43 PM Signed [facility] Pharm[facility] Anticoagulation Clinic Anticoagulation Episode Summary Anticoagulation Care Providers Provider Role Specialty Phone number Bg Beverly MD Referring Family Medicine [phone] Ashley Pabon is a 67 year old year old female patient being evaluated today for a Telemanagement visit. Patient is currently on the following anticoagulant(s) Warfarin. 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 Patient denies need for refills. Kristy Carrillo RPh Clinical Pharmacist, Pharmacy Anticoagulation Clinic Pharm[facility] Pager: [phone]. Kristy Carrillo RPh 05/16/2023 1:34 PM Signed Patient was due to test INR today will continue to monitor for results. Kristy Carrillo, PharmD Allergies As of Date: 05/02/2023 Noted Allergy Reaction ALESSE-21 (ESTROGENS) 05/16/2004 12 [...] - Rash Date Reviewed: 12/13/2022 Reviewed by: Blas Barba MD - Fully Assessed Reason for Visit: Anticoagulation Telephone Fu [148] Cmt: Home INR result Primary Visit Diagnosis:Factor 5 Leiden mutation, heterozygous (HCC) [D68.51] Other Visit Diagnoses:History of pulmonary embolus (PE) [Z86.711] correction current use of anticoagulant [Z79.01] Prescriptions as of 05/16/2023 - warfarin (COUMADIN) 5 mg tablet Take 5mg (1 tab) by mouth daily or as directed by [facility] Clinic - iv contrast (will be provided with [...] the MR contrast administration guidelines link. - Lancets lancets Test blood sugar(s) 1 [...] as instructed as directed. 2L PM - diphenhyd/phenyleph/acetami nop (TYLENOL ALLERGY M-S NIGHTTIME ORAL) Take by mouth. - cyanocobalamin (VITAMIN B-12) 100 mcg tab Take 100 mcg by mouth once daily. - biotin 1 mg cap Take by mouth once daily. - Cholecalciferol, Vitamin D3, (VITAMIN D-3) 50 mcg (2,000 unit) cap Take 1 capsule by mouth once daily. (more content not included)... Normal [facility] ASHLEY PABON ([id number]) 1955 F Date Time Provider Department 04/12/23 JANIS OTT During your visit today, we recorded the following information about you: Janis Ott [facility] 04/12/2023 1:34 PM Signed [facility] Anticoagulation [facility] Anticoagulation Episode Summary Anticoagulation Care Providers Provider Role Specialty Phone number Bg Beverly MD Referring Family Medicine [phone] Ashley Pabon is a 67 year old year old female patient being evaluated today for a Telemanagement visit. Patient is currently on the following anticoagulant(s) Warfarin. Labs PT INR (no units) Date Value 03/03/2022 1.5 biotel 02/03/2022 3.7 07/06/2021 2.4 (biotel) INR Home CoaguChek (no units) Date Value 04/12/2023 2.7 03/22/2023 3.0 03/08/2023 4.9 Hemoglobin (g/dL) Date Value 11/26/2020 12.8 Hematocrit [...] heterozygous (hcc) History of pulmonary embolus (pe) correction current use of anticoagulant Anticoagulation Episode Summary Current INR goal: 2.0-3.0 Assessment: INR result of 2.7 is therapeutic Plan: Current Warfarin Dosing As of 04/12/2023 Full warfarin instructions: 2.5 mg every Tue; 5 mg all other days Called and spoke to patient/caregiver Advised patient to continue current weekly dose as noted above Next home INR check scheduled on 04/26/2023 Patient verbalizes understanding of the plan. Patient denies need for refills. Janis Ott RPh Clinical Pharmacist, Pharmacy Anticoagulation Clinic Pharmacy [facility] Pager: [phone]. Janis Ott RPh 04/26/2023 4:30 PM Signed Patient was due to test INR today. Will continue to monitor for results. Follow up in one week if no results received. 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 - Lancets lancets Test blood sugar(s) 1 [...] as instructed as directed. 2L PM - diphenhyd/phenyleph/acetami nop (TYLENOL ALLERGY M-S NIGHTTIME ORAL) Take by mouth. - cyanocobalamin (VITAMIN B-12) 100 mcg tab Take 100 mcg by mouth once daily. - biotin 1 mg cap Take by mouth once daily. - Cholecalciferol, Vitamin D3, (VITAMIN D-3) 50 mcg (more content not included)... Normal [facility] 03-28-2023 CNPN Telephone (PHARMN) ASHLEY PABON ([id number]) 1955 F Date Time Provider Department 03/28/23 PHARMACIST PHARMN During your visit today, we recorded the following information about you: Mimi (Shrimping Boat [employer])Kofi 03/28/2023 11:57 AM Signed PATIENT CALL Patient called call center regarding refill Patient requested a medication refill. Patient's pharmacy is [facility]. Refill Medication: warfarin 5 mg tablet(s) Refill request sent to pharmacist Yes PT INR (no units) Date Value 03/03/2022 1.5 biotel 02/03/2022 3.7 07/06/2021 2.4 (biotel) INR Home CoaguChek (no units) Date Value 03/22/2023 3.0 03/08/2023 4.9 02/19/2023 2.4 Kofi Le (Kadmon) Tawny Garcia [facility] 03/28/2023 12:16 PM Signed The following approved medication requests have been transmitted electronically. Requested Prescriptions Signed Prescriptions Disp Refills warfarin (COUMADIN) 5 mg tablet 90 tablet 3 Sig: Take 5mg (1 tab) by mouth daily or as directed by Coumadin Clinic Authorizing Provider: BG BEVERLY Ordering User: TAWNY GARCIA [facility] aJnis Ott [facility] 04/05/2023 4:46 PM Signed Patient due to test INR today. Will continue to monitor for results. Janis Ott [facility] Allergies As of Date: 03/28/2023 Noted Allergy Reaction ALESSE-21 (ESTROGENS) 05/16/2004 12 [...] - Rash Date Reviewed: 12/13/2022 Reviewed by: Blas Barba MD - Fully Assessed Reason for Visit: Refill Request [94] Order(s):Order #: [id number] Prescriptions as of 04/05/2023 - warfarin (COUMADIN) 5 mg tablet Take 5mg (1 tab) by mouth daily or as directed by Coumadin Clinic - iv contrast (will be provided with [...] the MR contrast administration guidelines link. - Lancets lancets Test blood sugar(s) 1 [...] as instructed as directed. 2L PM - diphenhyd/phenyleph/acetami nop (TYLENOL ALLERGY M-S NIGHTTIME ORAL) Take by [...] once daily. Problem List As Of Date 03/28/2023 Noted Resolved PMH - PAST MEDICAL HISTORY [...] Insomnia [G47.00] 04/05/2015 Cyst and pseudocyst of [place] (more content not included)... [facility] 03-22-2023 CNPN Telephone (PHAMTE) ASHLEY PABON ([id number]) 1955 F Date Time Provider Department 03/22/23 JANIS OTT PHAMTE During your visit today, we recorded the following information about you: Janis Ott, [facility] 03/22/2023 11:10 AM Signed [facility]ulatory Pharmacy Anticoagulation Clinic Anticoagulation Episode Summary Anticoagulation Care Providers Provider Role Specialty Phone number Bg Beverly MD Referring Family Medicine [phone] Ashley Pabon is a 67 year old [...] heterozygous (hcc) History of pulmonary embolus (pe) 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 Patient denies need for refills. Janis Ott [facility] Clinical Pharmacist, Pharmacy Anticoagulation Clinic Pharmacy Anticoagulation Clinic Pager: [phone]. 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 2L PM - diphenhyd/phenyleph/acetami nop (TYLENOL ALLERGY M-S NIGHTTIME ORAL) Take by [...] once daily. Problem List As Of Date 03/22/2023 Noted Resolved PMH - PAST MEDICAL HIST (more content not included)... [facility] 03-08-2023 [facility] Telephone (PHAPHILLIPE) ASHLEY PABON ([id number]) 1955 F Date Time Provider Department 03/08/23 JANIS OTT During your visit today, we recorded the following information about you: Janis Ott, [facility] 03/08/2023 11:32 AM Signed [facility] Ambulatory Pharmacy Anticoagulation Clinic Anticoagulation Episode Summary Anticoagulation Care Providers Provider Role Specialty Phone number Bg Beverly MD Referring Family Medicine [phone] Ashley Pabon is a 67 year old [...] heterozygous (hcc) History of pulmonary embolus (pe) correction current use of anticoagulant Anticoagulation Episode Summary [...] the plan. Patient denies need for refills. Janis Ott, [facility] Clinical Pharmacist, Pharmacy Anticoagulation Clinic Pharmacy Anticoagulation Clinic Pager: [phone]. 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 2L PM - diphenhyd/phenyleph/acetami nop (TYLENOL ALLERGY M-S NIGHTTIME ORAL) Take by mouth. - cyanocobalamin (VITAMIN B-12) 100 mcg tab Take 100 mcg by mouth once daily. - biotin 1 mg cap Take by mouth once daily. - Cholecalciferol, Vitamin D3, (VITAMIN D-3) 50 mcg (2,000 unit) cap Take 1 capsule by mouth once daily. - ferrous sulfate (IRON ORAL (more content not included)... [facility] 02-19-2023 CNPN Telephone (AJITE) ASHLEY PABON ([id number]) 1955 F Date Time Provider Department 02/19/23 ERICA TEJEDA During your visit today, we recorded the following information about you: Erica Tejeda RPh 02/19/2023 1:15 PM Signed [facility] Ambulatory Pharmacy Anticoagulation Clinic Anticoagulation Episode Summary Anticoagulation Care Providers Provider Role Specialty Phone number Bg Beverly MD Referring Family Medicine [phone] Ashley Shannan Pabon is a 67 year old year [...] instructed to call [facility] at [phone] with any questions or concerns. Erica Tejeda [facility] Clinical Pharmacist, Pharmacy Anticoagulation Clinic Pharmacy Anticoagulation Clinic Pager: [phone] Silva Cobb RPh 03/05/2023 2:33 PM Signed Patient due to test INR today. Will continue to monitor for results. Silva Cobb [facility] Allergies As of Date: 02/19/2023 Noted Allergy Reaction ALESSE-21 (ESTROGENS) 05/16/2004 12 [...] - Rash Date Reviewed: 12/13/2022 Reviewed by: Blas Barba MD - Fully Assessed Reason for Visit: Anticoagulation Telephone Fu [148] Cmt: Home INR Result Prescriptions as of 03/05/2023 - iv contrast (will be provided with [...] as instructed as directed. 2L PM - diphenhyd/phenyleph/acetami nop (TYLENOL ALLERGY M-S NIGHTTIME ORAL) Take by [...] once daily. Problem List As Of Date 02/19/2023 Noted Resolved PMH - PAST MEDICAL HISTORY [...] 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] 03/17/2010 Primary localize (more content not included)... [facility] ASH[facility] PAB[facility] ([id number]) 1955 F Date Time Provider Department 02/08/23 JANIS OTT During your visit today, we recorded the following information about you: Janis Ott, [facility] 02/08/2023 12:26 PM Signed [facility] Ambulatory Pharmacy Anticoagulation Clinic Anticoagulation Episode Summary Anticoagulation Care Providers Provider Role Specialty Phone number Bg Beverly MD Referring Family Medicine [phone] Ashley Pabon is a 67 year old year old female patient being evaluated today for a Telemanagement visit. Patient is currently on the following anticoagulant(s) Warfarin. Labs PT INR (no units) Date Value 03/03/2022 1.5 biotel 02/03/2022 3.7 07/06/2021 2.4 (biotel) INR Home CoaguChek (no units) Date Value 02/08/2023 1.9 02/01/2023 1.6 01/05/2023 3.2 Hemoglobin (g/dL) Date Value 11/26/2020 12.8 Hematocrit [...] heterozygous (hcc) History of pulmonary embolus (pe) correction current use of anticoagulant Anticoagulation Episode Summary Current INR goal: 2.0-3.0 Assessment: INR result of 1.9 is SUBtherapeutic due to: unknown cause - did not speak to patient Plan: Current Warfarin Dosing As of 02/08/2023 Full warfarin instructions: 2.5 mg every Tue; 5 mg all other days Left voice message Advised patient to increase total weekly regimen Next home INR check scheduled on 02/15/2023 Janis Ott [facility] Clinical Pharmacist, Pharmacy Anticoagulation Clinic Pharmacy Anticoagulation Clinic Pager: [phone]. Janis Ott [facility] 02/15/2023 5:28 PM Signed Patient due to test INR today. Will continue to monitor for results. 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 2L PM - diphenhyd/phenyleph/acetami nop (TYLENOL ALLERGY M-S NIGHTTIME ORAL) Take by mouth. - cyanocobalamin (VITAMIN B-12) 100 mcg tab Take 100 mcg by mouth once daily. - biotin 1 mg cap Take by mouth once daily. - Cholecalciferol, Vitamin D3, (VITAMIN D-3) 50 mcg (2,000 unit) cap Take 1 capsule by mouth once daily. - ferrous sulfate (IRON ORAL) Take by mouth once d (more content not included)... Normal [facility] - Hematology and Cell countson 02-05-2023 HbA1c (Bld) [Mass fraction] 6.0 % 4.2-6.3 [facility] 02-01-2023 [facility] Telephone (PHAMTE) ASHLEY PABON ([id number]) 1955 F Date Time Provider Department 02/01/23 ADRIANE CINTRON During your visit today, we recorded the following information about you: Adriane Cintron tae 02/01/2023 9:40 AM Signed [facility] Ambulatory Pharmacy Anticoagulation Clinic Anticoagulation Episode Summary Anticoagulation Care Providers Provider Role Specialty Phone number Bg Beverly MD Referring Family Medicine [phone] Ashley Pabon is a 67 year old [...] 02/01: 7.5 mg; Otherwise 2.5 mg every Tue, Fri; 5 mg all other days Called and spoke to patient/caregiver Advised patient to increase dose for 1 day only then resume weekly regimen Next home INR check scheduled on 02/08/2023 Patient verbalizes understanding of the plan. Patient denies need for refills. Adriane Cintron [facility] Clinical Pharmacist, Pharmacy Anticoagulation Clinic Pharmacy Anticoagulation Clinic Pager: [phone]. Allergies As of Date: 02/01/2023 Noted Allergy Reaction ALESSE-21 (ESTROGENS) 05/16/2004 12 [...] - Rash Date Reviewed: 12/13/2022 Reviewed by: Blas Barba MD - Fully Assessed Reason for Visit: Anticoagulation Telephone Fu [148] Cmt: Home INR Prescriptions as of 02/01/2023 - iv contrast (will be provided with [...] as instructed as directed. 2L PM - diphenhyd/phenyleph/acetami nop (TYLENOL ALLERGY M-S NIGHTTIME ORAL) Take by [...] once daily. 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 [facility]19[facility]2023 [facility] ASHLEY PABON ([id number]) 1955 F Date Time Provider Department 01/19/23 MARVIN ROBERTSON During your visit today, we recorded the following information about you: Marvin Robertson RPh 01/19/2023 1:36 PM Signed Patient due to test INR today. Will continue to monitor for results. David Kaplan Sara, RPh 01/26/2023 3:09 PM Signed Ashley Pabon was sent [employer] message and reminded to test INR today or as soon as possible. 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 2L PM - diphenhyd/phenyleph/acetami nop (TYLENOL ALLERGY M-S NIGHTTIME ORAL) Take by [...] once daily. 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 Normal [facility] Basophil percentageOrdered B y: Yanique Espinosa on 01-10-2023 Chloride [Moles/Vol] 108 mmol/L 98-107 [facility] Glucose [Mass/Vol] 99 mg/dL 74-106 [facility] Potassium [Moles/Vol] 4.6 mmol/L 3.5-5.[address] [facility] Sodium [Moles/Vol] 142 mmol/L 136-145 [facility] Laboratory - Chemistry and C hemistry - challengeOrdered By: Yanique Espinosa on 01-10-2023 CO2 [Moles/Vol] 30.0 mmol/L 21.0-32.0 [facility] Urea nitrogen/Creatinine [Mass ratio] 30.0 mg/mg 01-26 [facility] No Panel InformationOrdered By: Yanique Espinosa on 01-10-2023 Estimated GFR (MDRD) Amer 77 mL/min >60 [facility] Comment on above: GFR Calc Estimated GFR (MDRD) Non-Af Amer 63 mL/min >60 [facility] Comment on above: Non- GFR Calc Serum or plasma calcium des urement (mass/volume)Ordered By: Yanique Espinosa on 01-10-2023 Calcium [Mass/Vol] 9.4 mg/dL 8.5-10.1 [facility] Serum or plasma creatinine m easurement (mass/volume)Ordered By: Yanique Espinosa on 01-10-2023 Creatinine [Mass/Vol] 0.93 mg/dL 0.55-1.[address] [facility] Comment on above: The validity of the calculated GFR & GFRAA in patients over 70 years has not been determined. Clinical correlation is essential. Serum or plasma urea nitroge n measurement (mass/volume)Ordered By: Yanique Espinosa on 01-10-2023 Urea nitrogen [Mass/Vol] 28 mg/dL 7-18 [facility] Thin prep Papanicolaou smear with manual screeningOrdered By: Yanique Espinosa on 01-10-2023 Thin prep Papanicolaou smear with manual screening 4 5- [facility] CNPNon 01-05-2023 CNPN Telephone (PHAMTE) PEPPERASHLEY Shannan ([id number]) 1955 F Date Time Provider Department 01/05/23 MARVIN ROBERTSON During your visit today, we recorded the following information about you: Marvin Robertson [facility] 01/05/2023 4:43 PM Signed [facility] Ambulatory Pharmacy Anticoagulation Clinic Anticoagulation Episode Summary Anticoagulation Care Providers Provider Role Specialty Phone number Bg Beverly MD Referring Family Medicine [phone] Ashley Pabon is a 67 year old [...] heterozygous (hcc) History of pulmonary embolus (pe) correction current use of anticoagulant Anticoagulation Episode Summary [...] the plan. Patient denies need for refills. Marvin Robertson [facility] Clinical Pharmacist, Pharmacy Anticoagulation Clinic Pharmacy Anticoagulation Clinic Pager: [phone]. Allergies As of Date: 01/05/2023 Noted Allergy Reaction ALESSE-21 (ESTROGENS) 05/16/2004 12 [...] - Rash Date Reviewed: 12/13/2022 Reviewed by: Blas Barba MD - Fully Assessed Reason for Visit: Anticoagulation Telephone Fu [148] Cmt: INR Home Test Result Primary Visit Diagnosis:Factor 5 Leiden mutation, heterozygous (HCC) [D68.51] Other Visit Diagnoses:History of pulmonary embolus (PE) [Z86.711] correction current use of anticoagulant [Z79.01] Prescriptions as of 01/05/2023 - iv contrast (will be provided with [...] as instructed as directed. 2L PM - diphenhyd/phenyleph/acetami nop (TYLENOL ALLERGY M-S NIGHTTIME ORAL) Take by mouth. - cyanocobalamin (VITAMIN B-12) 100 mcg tab Take 100 mcg by mouth once daily. - biotin 1 mg cap Take by mouth once daily. - Cholecalciferol, Vitamin D3, (VITAMIN D-3) 50 mcg (2,000 unit) cap Take 1 capsule by mouth once daily. - ferrous sulfate (IRON ORAL) Take by mouth once daily. Problem (more content not included)... [facility]PHAMTE[facility] ASHLEY PABON ([id number]) 1955 F Date Time Provider Department 12/20/22 KRISTY CARRILLO PHAMTE During your visit today, we recorded the following information about you: Kristy Carrillo [facility] 12/20/2022 3:03 PM Signed [facility] Ambulatory Pharmacy Anticoagulation Clinic Anticoagulation Episode Summary Anticoagulation Care Providers Provider Role Specialty Phone number Bg Beverly MD Referring Family Medicine [phone] Ashley Pabon is a 67 year old [...] hemp gummies that she started in early- Aguu also. Plan: Current Warfarin Dosing As of 12/12/2022 Full warfarin instructions: 2.5 mg every e, Fri; 5 mg all other days Called and spoke to patient/caregiver Advised patient to continue current weekly dose as noted above Next home INR check scheduled on Patient verbalizes understanding of the plan. Patient denies need for refills. Kristy Carrillo [facility] Clinical Pharmacist, Pharmacy Anticoagulation Clinic Pharmacy Anticoagulation Clinic Pager: [phone]. Kristy Carrillo [facility] 01/03/2023 11:49 AM Signed Patient was due to test INR today will continue to monitor for results. 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 2L PM - diphenhyd/phenyleph/acetami nop (TYLENOL ALLERGY M-S NIGHTTIME ORAL) Take by mouth. - cyanocobalamin (VITAMIN B-12) 100 mcg tab Take 100 mcg by mouth once daily. - biotin 1 mg cap Take by mouth once daily. - Cholecalciferol, Vitamin D3, (VITAMIN D-3) 50 mcg (2,000 unit) ca (more content not included)... Normal [facility] [place] 12-12-2022 [facility] Telephone (AJITE) ASHLEY PABON ([id number]) 1955 F Date Time Provider Department 12/12/22 SILVA COBB During your visit today, we recorded the following information about you: Silva Cobb RPh 12/12/2022 9:17 AM Signed The patient was called to discuss recent INR test results. A voice message was left on patient's Home telephone voice mail. The patient was advised to call the Coumadin Clinic at [phone] and hold x1 (12/12). PT INR (no units) Date Value 03/03/2022 1.5 biotel 02/03/2022 3.7 07/06/2021 2.4 (biotel) INR Home CoaguChek (no units) Date Value 12/11/2022 4.8 11/27/2022 2.3 11/22/2022 6.4 Silva Cobb, PharmD,CACP Nga Cartagena RN 12/12/2022 12:53 PM Signed Patient returned the call and can be reached at [phone]. Linsey Cartagena RN Pharmacy Anticoagulation Clinic Silva Cobb RPh 12/12/2022 1:05 PM Signed [facility] Ambulatory Pharmacy Anticoagulation Clinic Anticoagulation Episode Summary Anticoagulation Care Providers Provider Role Specialty Phone number Bg Beverly MD Referring Family Medicine [phone] Ashley Pabon is a 67 year old [...] 12/21/2022 Patient verbalizes understanding of the plan. Silva Cobb [facility] Clinical Pharmacist, Pharmacy Anticoagulation Clinic Pharmacy Anticoagulation Clinic Pager: [phone]. Allergies As of Date: 12/12/2022 Noted Allergy Reaction ALESSE-21 (ESTROGENS) 05/16/2004 12 [...] Rosa Maria Jay LPN - Fully Assessed Reason for Visit: Anticoagulation Telephone Fu [148] Cmt: Home INR result Prescriptions as of 12/12/2022 - warfarin (COUMADIN) 5 mg tablet Take [...] as instructed as directed. 2L PM - diphenhyd/phenyleph/acetami nop (TYLENOL ALLERGY M-S NIGHTTIME ORAL) Take by [...] Take by mouth once daily. - Cholecalciferol, (more content not included)... [facility] MRI PANC/ZAYRA WO/W IVCONon MRI PANC/ZAYRA WO/W IVCON * * *Final Report* * * DATE OF EXAM: Dec 06 2022 9:30AM WRM 0730 - MRI PANC/ZAYRA WO/W IVCON / PROCEDURE REASON: IPMN (intraductal papillary mucinous neoplasm) * * * * Physician Interpretation * * * * Examination: MRI PANC/ZAYRA WO/W IVCON History: IPMN (intraductal papillary mucinous neoplasm) Technique: MRI PANC/ZAYRA WO/W IVCON Comparison: 10/21/[address] scans of 09/05/2020 TECHNIQUE: Using the torso phased array coil, axial STIR, T1 weighted in- and lna-li-nzniz and axial and coronal HASTE (multslice MRCP) images were obtained. Thick-slab heavily T2 weighted images (projection MRCP) were also obtained. Then, using a 3-D GRE T1 weighted sequence, dynamic images were obtained before, during and after the administration of intravenous Dotarem 20 cc Three dimensional imaging was created on a dedicated stand-alone 3D workstation and supervised . RESULT: Similar appearance of dilated intrahepatic and extrahepatic biliary radicles. Common duct measures up to 1.8 cm. It tapers smoothly at the ampulla. Cystic duct is again noted to be also dilated. Stable. No filling defects within either. Main pancreatic duct is again noted to be diffusely dilated up to 0.7 cm. Stable. Numerous branch nonenhancing cystic foci up to 1.1 cm in size are seen. Stable. These are consistent with sidebranch IPMN. No pathologic enhancement or focal pancreatic enlargement. No focal hepatic lesion. No focal splenic lesion. The adrenal glands are normal. No gross obstructive uropathy or suspicious renal lesion. Several renal cysts. At or near 1 cm. 1 cm hemorrhagic left renal cyst. No suspicious renal lesion or gross obstructive uropathy. Renal scarring on the right is again noted. Lung bases are unremarkable. The aorta is normal in caliber. Celiac artery and SMA are patent. Portal vein, splenic vein and superior mesenteric vein are patent. IVC is patent. Hepatic veins are patent. Multilevel degenerative change throughout the spine, and scoliosis. Incidental duodenal diverticulum. No ascites or lymphadenopathy IMPRESSION: Numerous stable sidebranch IPMN throughout the pancreas, at or near 1 cm. Stable intrahepatic and extrahepatic biliary dilatation. No focal filling defect. Stable main duct pancreatic dilatation. No developing suspicious mass or adenopathy within the abdomen. Stable right renal cortical scarring. Renal cysts. Track Worker: PSCB Transcribe Date/Time: Dec 07 2022 3:51P Dictated by : KRIS GLOVER MD This examination was interpreted and the report reviewed and electronically signed by: KRIS GLOVER MD on Dec 07 2022 4:13PM EST [id number] Normal [facility] Qiana 11-27-2022 RAFAELN Telephone (PHAPHILLIPE) ASHLEY PABON ([id number]) 1955 F Date Time Provider Department 11/27/22 ERICA TEJEDA During your visit today, we recorded the following information about you: Erica Tejeda RPh 11/27/2022 2:11 PM Signed [facility] Anticoagulation Episode Summary Anticoagulation Care Providers Provider Role Specialty Phone number Bg Beverly MD Referring Family Medicine [phone] Ashley Pabon is a 67 year old [...] instructed to call [facility] at [phone] with any questions or concerns. Erica Tejeda [facility] Clinical Pharmacist, Pharmacy Anticoagulation Clinic Pharmacy Anticoagulation Clinic Pager: [phone] Allergies As of Date: 11/27/2022 Noted Allergy Reaction ALESSE-21 (ESTROGENS) 05/16/2004 12 [...] Rosa Maria Jay LPN - Fully Assessed Reason for Visit: Anticoagulation Telephone Fu [148] Cmt: Home INR Result Prescriptions as of 11/27/2022 - warfarin (COUMADIN) 5 mg tablet Take [...] as instructed as directed. 2L PM - diphenhyd/phenyleph/acetami nop (TYLENOL ALLERGY M-S NIGHTTIME ORAL) Take by [...] as needed. 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 Normal [facility] Absolute lymphocyte countOrd ered By: Yanique Espinosa on 11-03-2022 Lymphocytes Auto (Unsp spec) [#/Vol] 2.85 10*3/uL 0.83-4.51 [facility] Basophil percentageOrdered B y: Yanique Espinosa on 11-03-2022 Basophils/100 WBC (Bld) 1.0 % 0-1 [facility] Bilirubin [Mass/Vol] 0.30 mg/dL 0.20-1.00 [facility] Comment on above: For patients on eltr ombopag therapy, use of Dimension Hardin TBIL is not recommended. Chloride [Moles/Vol] 107 mmol/L 98-107 [facility] Cholesterol [Mass/Vol] 189 mg/dL <200 [facility] Comment on above: <200 mg/dL Desirable 200-240 mg/dL Borderline >240 mg/dL High Risk Eosinophils/100 WBC (Bld) 2.1 % 0-5 [facility] Glucose [Mass/Vol] 97 mg/dL 74-106 [facility] Neutrophils (Bld) [#/Vol] 4.9 10*3/uL 2.0-7.7 [facility] Neutrophils/100 WBC (Bld) 56.4 % 47-70 [facility] Potassium [Moles/Vol] 5.2 mmol/L 3.5-5.[address] [facility] Protein [Mass/Vol] 7.0 g/dL 6.4-8.2 [facility] Sodium [Moles/Vol] 142 mmol/L 136-145 [facility] Triglyceride [Mass/Vol] 125 mg/dL <199 [facility] Comment on above: The drugs N-Acetylcy steine and Metamizole may falsely depress this assay.Serum Triglycerides Reference Interval Normal <150 mg/dL Borderline high 150 - 199 mg/dL High 200 - 499 mg/dL Very High > or = 500 mg/dL WBC (Bld) [#/Vol] 8.7 10*3/uL 4.4-11.0 [facility] Blood erythrocytes count (nu mber/volume)Ordered By: Yanique Espinosa on 11-03-2022 RBC (Bld) [#/Vol] 4.53 10*6/uL 4.2-5.4 [facility] Blood hemoglobin measurement (mass/volume)Ordered By: Yanique Espinosa on 11-03-2022 Hemoglobin (Bld) [Mass/Vol] 13.8 g/dL 12.0-15.0 [facility] Blood lymphocytes/100 leukoc ytesOrdered By: Yanique Espinosa on 11-03-2022 Lymphocytes/100 WBC (Bld) 32.6 % 19-41 [facility] Blood monocytes/100 leukocyt esOrdered By: Yanique Espinosa on 11-03-2022 Monocytes/100 WBC (Bld) 7.7 % 0-10 [facility] Blood platelet mean volumeOr dered By: Yanique Espinosa on 11-03-2022 Platelet mean volume (Bld) [Entitic vol] 10.8 fL 6.2-12.0 [facility] Determination of erythrocyte mean corpuscular volume (MCV)Ordered By: Yanique Espinosa on 11-03-2022 MCV (RBC) [Entitic vol] 97.8 fL 81-99 [facility] Hematocrit Auto (Bld) [Volum e fraction]Ordered By: Yanique Espinosa on 11-03-2022 Hematocrit (Bld) [Volume fraction] 44.3 % 37-47 [facility] Laboratory - Chemistry and C hemistry - challengeOrdered By: Yanique Espinosa on 11-03-2022 ALP [Catalytic activity/Vol] 84 U/L 45-117 [facility] ALT [Catalytic activity/Vol] 30 U/L 13-56 [facility] CO2 [Moles/Vol] 30.0 mmol/L 21.0-32.0 [facility] Globulin (S) [Mass/Vol] 3.5 g/dL 2.2-4.2 [facility] Urea nitrogen/Creatinine [Mass ratio] 26.4 mg/mg 10-20 [facility] - Hematology and Cell countsOrdered By: Yanique Espinosa on 11-03-2022 Erythrocyte distribution width (RBC) [Entitic vol] 51.2 fL 35.1-43.9 [facility] Erythrocyte distribution width (RBC) [Ratio] 14.2 % 11.6-14.6 [facility] Immature granulocytes/100 WBC (Bld) 0.200 % 0.0-0.9 [facility] Comment on above: IG% - Immature Granu locytes (promyelocytes, myelocytes and metamyelocytes) > 1% indicates that a LEFT SHIFT is Present. MCH (RBC) [Entitic mass] 30.5 pg 27.0-32.0 [facility] Nucleated RBC/100 WBC (Bld) [Ratio] 0 % 0-5 [facility] MCHC Auto (RBC) [Mass/Vol]Or dered By: Yanique Espinosa on 11-03-2022 MCHC (RBC) [Mass/Vol] 31.2 g/dL 32-[address] [facility] No Panel InformationOrdered By: Yanique Espinosa on 11-03-2022 Estimated GFR (MDRD) Amer 66 mL/min >60 [facility] Comment on above: GFR Calc Estimated GFR (MDRD) Non-Af Amer 55 mL/min >60 [facility] Comment on above: Non- GFR Calc Thyroid Stimulating Hormone (TSH) 0.85 uIU/mL 0.358-3.74 [facility] Vitamin D 25-Hydroxy 75.8 ng/mL [facility] Comment on above: Vitamin D 25(OH) Sta tus Range Deficiency <20 ng/mL (50nmol/L) Insufficiency 20 - 30 ng/mL (50 - 75 nmol/L) Sufficiency 30 - 100 ng/mL (75 - 250 nmol/L) Toxicity >100 ng/mL (>250 nmol/L) Platelets bldOrdered By: Fredo Espinosa on 11-03-2022 Platelets (Bld) [#/Vol] 284 10*3/uL 150-450 [facility] Serum or plasma albumin des urement (mass/volume)Ordered By: Yanique Espinosa on 11-03-2022 Albumin [Mass/Vol] 3.5 g/dL 3.2-5.0 [facility] Serum or plasma albumin/glob ulin mass ratioOrdered By: Yanique Espinosa on 11-03-2022 Albumin/Globulin [Mass ratio] 1.0 {ratio} 0.9-2.4 [facility] Serum or plasma calcium des urement (mass/volume)Ordered By: Yanique Espinosa on 11-03-2022 Calcium [Mass/Vol] 9.5 mg/dL 8.5-10.1 [facility] Serum or plasma cholesterol in HDL measurement (mass/volume)Ordered By: Yanique Espinosa on 11-03-2022 Cholesterol in HDL [Mass/Vol] 51 mg/dL >40 [facility] Comment on above: The drugs N-Acetylcy steine and Metamizole may falsely depress this assay. Reference Range HDL <40 mg/dL Low HDL Cholesterol HDL >or= 60 mg/dL High HDL Cholesterol Serum or plasma cholesterol in VLDL measurement (mass/volume)Ordered By: Yanique Espinosa on 11-03-2022 Cholesterol in VLDL [Mass/Vol] 25 mg/dL 5-40 [facility] Serum or plasma creatinine m easurement (mass/volume)Ordered By: Yanique Espinosa on 11-03-2022 Creatinine [Mass/Vol] 1.06 mg/dL 0.55-1.[address] [facility] Comment on above: The validity of the calculated GFR & GFRAA in patients over 70 years has not been determined. Clinical correlation is essential. Serum or plasma low density lipoprotein (LDL) cholesterol measurement (mass/volume)Ordered By: jeffrey Espinosa on 11-03-2022 Cholesterol in LDL [Mass/Vol] 113 mg/dL 0-130 [facility] Serum or plasma urea nitroge n measurement (mass/volume)Ordered By: [facility] on 11-03-2022 Urea nitrogen [Mass/Vol] 28 mg/dL 7-18 [facility] Serum or plasma uric acid me asurement (mass/volume)Ordered By: [facility] Espinosa on 11-03-2022 Urate [Mass/Vol] 4.7 mg/dL 2.6-6.0 [facility] Comment on above: The drugs N-Acetylcy steine and Metamizole may falsely depress this assay. Thin prep Papanicolaou smear with manual screeningOrdered By: Yanique Espinosa on 11-03-2022 Thin prep Papanicolaou smear with manual screening 20 U/L 15-37 [facility] Thin prep Papanicolaou smear with manual screening 5 5-15 [facility] Whole blood hemoglobin A1c/t otal hemoglobin ratio (mass fraction)Ordered By: [facility] Espinosa on 11-03-2022 HbA1c (Bld) [Mass fraction] 6.0 % 3.8-5.6 [facility] Comment on above: Normal < 5.7 % Predi abetic 5.7 - 6.4 % Diabetic >or= 6.5 % Please note range changes. VITAMIN B6 [CCL]on 3 Vitamin B6 Plasma 20.3 nmol/L Normal 20.0-125.0 [facility] Comment on above: Result Comment: Spec imen received in the laboratory not protected from light. Test results should be interpreted with caution. Assay was performed at client's request on a sub-optimal specimen. INTERPRETIVE INFORMATION: Vitamin B6 (Pyridoxal 5-Phosphate) Pyridoxal 5'-phosphate measured in a specimen collected following an 8-hour or overnight fast accurately indicates vitamin B6 nutritional status. Non-fasting specimen concentration reflects recent vitamin intake. This test was developed and its performance characteristics determined by [facility]. It has not been cleared or approved by the US Food and Drug Administration. This test was performed in a CLIA certified laboratory and is intended for clinical purposes. Performed By: [facility] [facility] [address] [place] [address] Senior Category Manager: Henri Schaefer MD, PhD Test results should be interpreted with caution. Assay was performed at client's request on a sub-optimal specimen. [address] [address] Ashkan Caputo III, M.D. [id number] Performed By: #### 2 [id number] #### [address] [address] HEPATITIS C AB IA W/CONFIRM [CCL]on 08-04-2022 REFLEX HCQPCR? NO Normal [facility] Comment on above: Performed By: #### 2 04721 #### [place] [id number] Hepatitis C Ab IA Negative Normal Negative [facility] Comment on above: Result Comment: The result suggests no evidence of active infection with Hepatitis C virus. Should recent infection be suspected, repeat testing may be considered 4-6 weeks after this draw. [facility] [employer] [address] [place] [address] Ashkan Caputo III, M.D. [id number] Performed By: #### 2 06919 #### [address] [address] HGB A1C [CCL]on 08-04-2022 HbA1c (Bld) [Mass fraction] 5.9 % High 4.3-5.6 [facility] Comment on above: Result Comment: Amer [place] Diabetes Association guidelines indicate that patients with HgbA1c in the range 5.7-6.4% are at increased risk for development of diabetes, and intervention by lifestyle modification may be beneficial. HgbA1c greater or equal to 6.5% is considered diagnostic of diabetes. Performed By: #### 2 39152 #### [address] [address] Hemoglobin A0 123 mg/dL Normal [facility] Comment on above: Result Comment: eAG: (Estimated average glucose) is a calculated value from HgbA1c and is promotional representative of the average blood glucose level in the last 2-3 month period. [facility] [employer] [address] [place] [address] Ashkan Caputo III, M.D. [id number] Performed By: #### 2 84736 #### [facility],[address] [place] [address] VITAMIN D, 1,25 - DIHYDROXY [CCL]on 08-04-2022 Vit D,1,25 Dihydroxy 70.1 pg/mL Normal 19.9-79.3 [facility] Comment on above: Result Comment: [facility] [address] [place] [address] Ashkan Caputo III, M.D. [id number] Performed By: #### 2 27912 #### [facility],[address] [place] [address] CBC + DIFFon 08-02-2022 Baso # 0.10 x10EE3/UL Normal 0.00 - 0.10 [facility] Comment on above: Performed By: #### 2 31295 #### [facility],[address] [place] [address] Basophils/100 WBC (Bld) 1.0 % Normal 0.0 - 2.0 [facility] Comment on above: Performed By: #### 2 01758 #### [facility],[address] [place] [address] CBC + DIFF Normal [facility] Comment on above: Result Comment: CBC- COMPLETE BLOOD COUNT Performed By: #### 2 92683 #### [facility],[address] [place] [address] EO # 0.20 x10EE3/UL Normal 0.00 - 0.50 [facility] Comment on above: Performed By: #### 2 27686 #### [facility],[address] [place] [address] Eosinophils/100 WBC (Bld) 2.9 % Normal 0.0 - 7.0 [facility] Comment on above: Performed By: #### 2 77941 #### [facility],[address] [place] [address] Erythrocyte distribution width (RBC) [Ratio] 14.4 % Normal 12.0 - 15.6 [facility] Comment on above: Performed By: #### 2 27489 #### [facility],[address] [place] [address] Hematocrit (Bld) [Volume fraction] 44.9 % Normal 34.0 - 46.0 [facility] Comment on above: Performed By: #### 2 83019 #### [facility],[address] [place] [address] Hemoglobin (Bld) [Mass/Vol] 14.4 g/dL Normal 12.0 - 16.0 [facility] Comment on above: Performed By: #### 2 78998 #### [facility],[address] [place] [address] Lymph # 2.20 x10EE3/UL Normal 0.80 - 2.80 [facility] Comment on above: Performed By: #### 2 13384 #### [facility],[address] [place] [address] Lymphocytes/100 WBC (Bld) 30.2 % Normal 20.0 - 45.0 [facility] Comment on above: Performed By: #### 2 31533 #### [facility],[address] [place] [address] MANUAL DIFF N/A Normal [facility] Comment on above: Performed By: #### 2 64259 #### [facility],[address] [place] [address] MCH (RBC) [Entitic mass] 30 pg Normal 27 - 33 [facility] Comment on above: Performed By: #### 2 53813 #### [facility],[address] [place] [address] MCHC 32 X10 3 Normal 32 - 36 [facility] Comment on above: Performed By: #### 2 65116 #### [facility],[address] [place] [address] MCV (RBC) [Entitic vol] 95 fL Normal 80 - 99 [facility] Comment on above: Performed By: #### 2 78695 #### [facility],[address] [place] [address] Ceiba # 0.60 x10EE3/UL Normal 0.20 - 1.00 [facility] Comment on above: Performed By: #### 2 58597 #### [facility],[address] [place], [place] [id number] MONOS % 8.8 % Normal 0.0 - 10.0 [facility] Comment on above: Performed By: #### 2 26629 #### [facility],[address] [place] [address] Morphology Melvin (Bld) [Interp] N/A Normal [facility] Comment on above: Performed By: #### 2 58227 #### [facility],[address] [place] [address] Neut # 4.10 x10EE3/UL Normal 1.50 - 7.10 [facility] Comment on above: Performed By: #### 2 60601 #### [facility],[address] [place], [place] [id number] Neutrophils/100 WBC (Bld) 57.1 % Normal 46.0 - 76.0 [facility] Comment on above: Performed By: #### 2 34689 #### [facility],[address] [place], [place] [id number] PLATELET 272 x10EE3/UL Normal 150 - 450 [facility] Comment on above: Performed By: #### 2 56694 #### [facility],[address] [place] [address] Platelet mean volume (Bld) [Entitic vol] 10.1 fL Normal 6.6 - 10.5 [facility] Comment on above: Result Comment: AUTO MATED DIFFERENTIAL Performed By: #### 2 25685 #### [facility],[address] [place] [address] RBC 4.75 x 10EE6/UL Normal 4.10 - 5.30 [facility] Comment on above: Performed By: #### 2 46981 #### [facility],[address] [place] [address] WBC 7.2 x 10EE3/UL Normal 4.5 - 10.8 [facility] Comment on above: Performed By: #### 2 58547 #### [facility],[address] [place] [address] CMP with eGFRon 08-02-2022 AGE 66 years Normal [facility] Comment on above: Performed By: #### 2 57021 #### [facility],[address] [place] [address] Albumin [Mass/Vol] 3.9 g/dL Normal 3.4 - 5.0 [facility] Comment on above: Performed By: #### 2 69925 #### [facility],[address] [place] [address] Albumin/Globulin [Mass ratio] 1.3 {ratio} Normal 0.9 - 1.6 [facility] Comment on above: Performed By: #### 2 59341 #### [facility],[address] [place] [address] ALK PHOS 85 U/L Normal 46 - 116 [facility] Comment on above: Performed By: #### 2 19819 #### [facility],[address] [place] [address] ALT [Catalytic activity/Vol] 24 U/L Normal 14 - 59 [facility] Comment on above: Performed By: #### 2 73494 #### [facility],[address] [place] [address] Anion gap [Moles/Vol] 12 mmol/L Normal 10 - 20 [facility] Comment on above: Performed By: #### 2 62554 #### [facility],[address] [place] [address] AST [Catalytic activity/Vol] 22 U/L Normal 13 - 39 [facility] Comment on above: Performed By: #### 2 59781 #### [facility],[address] [place] [address] B/C RATIO 23 ratio Normal 0 - 30 [facility] Comment on above: Performed By: #### 2 88171 #### [facility],[address] [place] [address] Bilirubin [Mass/Vol] 0.3 mg/dL Normal 0.2 - 1.0 [facility] Comment on above: Performed By: #### 2 47863 #### [facility],[address] [place] [address] Calcium [Mass/Vol] 9.2 mg/dL Normal 8.5 - 10.1 [facility] Comment on above: Performed By: #### 2 72855 #### [facility],[address] [place] [address] Chloride [Moles/Vol] 104 mmol/L Normal 98 - 107 [facility] Comment on above: Performed By: #### 2 88022 #### [facility],[address] [place] [address] CMP with eGFR Normal [facility] Comment on above: Result Comment: COMP REHENSIVE METABOLIC PANEL Performed By: #### 2 26729 #### [facility],[address] [place] [address] CO2 [Moles/Vol] 32.1 mmol/L High 21.0 - 32.0 [facility] Comment on above: Performed By: #### 2 12184 #### [facility],[address] [place] [address] Creatinine [Mass/Vol] 0.94 mg/dL Normal 0.55 - 1.02 [facility] Comment on above: Performed By: #### 2 05430 #### [facility],[address] [place] [address]796 eGFR 59 ML/MINUTE Low 60 - 999 [facility] Comment on above: Performed By: #### 2 29806 #### [address] [address] GFR/1.73 sq M.predicted among non-blacks MDRD (S/P/Bld) [Vol rate/Area] mL/min/{1.73_m2} Normal 60 - 999 [facility] Comment on above: Result Comment: ACCO RDING TO THE NATIONAL KIDNEY DISEASE EDUCATION PROGRAM(NKDE), A NORMAL eGFR IS A VALUE GREATER THAN OR EQUAL TO 60 ML/MIN/1.73 SQ METERS. CHRONIC KIDNEY DISEASE: <60mL/MIN/1.73 SQ METERS KIDNEY FAILURE: <15mL/MIN/1.73 SQ METERS THIS TEST SHOULD ONLY BE USED FOR PATIENTS 18 YEARS OF AGE AND OLDER. Performed By: #### 2 86873 #### [facility],[address] [place] [address] Globulin (S) [Mass/Vol] 3.0 g/dL Normal 1.5 - 3.8 [facility] Comment on above: Performed By: #### 2 73258 #### [facility],[address] [place] [address] Glucose [Mass/Vol] 89 mg/dL Normal 74 - 106 [facility] Comment on above: Performed By: #### 2 65328 #### [address] [address] Potassium [Moles/Vol] 5.0 mmol/L Normal 3.5 - 5.1 [facility] Comment on above: Performed By: #### 2 28249 #### [facility],[address] [place] [address] Protein [Mass/Vol] 6.9 g/dL Normal 6.4 - 8.2 [facility] Comment on above: Performed By: #### 2 32244 #### [facility],[address] [place] [address] Sodium [Moles/Vol] 143 mmol/L Normal 136 - 145 [facility] Comment on above: Performed By: #### 2 02827 #### [facility],[address] [place] [address] Urea nitrogen [Mass/Vol] 22 mg/dL High 7 - 18 [facility] Comment on above: Performed By: #### 2 34140 #### [facility],[address] [place], [place] [id number] FERRITINon 08-02-2022 Ferritin [Mass/Vol] 73 ng/mL Normal 8 - 388 [facility] Comment on above: Performed By: #### 2 77409 #### [facility],[address] [place], [place] [id number] FOLATESon 08-02-2022 FOLATES 14.8 ng/ml Normal 8.6 - 58.9 [facility] Comment on above: Performed By: #### 2 [id number] #### [facility],[address] [place], [place] [id number] IRONon 08-02-2022 Iron [Mass/Vol] 125 ug/dL Normal 50 - 170 [facility] Comment on above: Performed By: #### 2 [id number] #### [facility],[address] [place], [place] [id number] LIPID PROFILEon 08-02-2022 Cholesterol [Mass/Vol] 188 mg/dL Normal 0 - 240 [facility] Comment on above: Performed By: #### 2 [id number] #### [facility],[address] [place] [address]66 Cholesterol in HDL [Mass/Vol] 50 mg/dL Normal 40 - 60 [facility] Comment on above: Performed By: #### 2 [id number] #### [facility],[address] [place] [address]23 Cholesterol in LDL [Mass/Vol] 113 mg/dL Normal 0 - 129 [facility] Comment on above: Performed By: #### 2 [id number] #### [facility],[address] [place] [address]2389 Cholesterol.total/Cho lesterol in HDL [Mass ratio] 3.8 {ratio} Normal 0.0 - 5.0 [facility] Comment on above: Performed By: #### 2 [id number] #### [facility],[address] [place] [address]487 Lipid 1996 panel Normal [facility] Comment on above: Result Comment: LIPI D PROFILE Performed By: #### 2 [id number] #### [facility],[address] [place] [address]27 Triglyceride [Mass/Vol] 124 mg/dL Normal 0 - 150 [facility] Comment on above: Performed By: #### 2 [id number] #### [facility],[address] [place] [address] MAGNESIUMon 08-02-2022 Magnesium [Mass/Vol] 2.0 mg/dL Normal 1.8 - 2.4 [facility] Comment on above: Performed By: #### 2 [id number] #### [facility],[address] [place] [address]86 T4-FREE (FREE THYROXINE)on 0 08-02-2022 Free T4 [Mass/Vol] 1.09 ng/dL Normal 0.76 - 1.46 [facility] Comment on above: Result Comment: P otential of falsely elevated results when biotin concentrations are > 10 ng/mL. Performed By: #### 2 [id number] #### [facility],[address] [place] [address]179 TSHon 08-02-2022 TSH Qn 0.17 m[IU]/L Low 0.35 - 3.74 [facility] Comment on above: Performed By: #### 2 [id number] #### [facility],[address] [place] [address] 14183 URIC ACIDon 08-02-2022 Urate [Mass/Vol] 3.9 mg/dL Normal 2.6 - 6.0 [facility] Comment on above: Performed By: #### 2 [id number] #### [facility],[address] [place] [address] 79390 VITAMIN B-12on 08-02-2022 Cobalamin (Vitamin B12) [Mass/Vol] 607 pg/mL Normal 193 - 986 [facility] Comment on above: Performed By: #### 2 [id number] #### [facility],[address] [place] [address] INR FINGERSTICK B/Oon 2021 INR Coag (Bld) [Relative time] 1.5 biotel [facility] INR FINGERSTICK B/Oon 2021 INR Coag (Bld) [Relative time] 3.7 {INR} [facility] INR FINGERSTICK B/Oon 2021 INR Coag (Bld) [Relative time] 2.4 (biotel) [facility] Quality Check No [facility] INR (SUKI)on 02-04-2020 INR Coag (BldC) [Relative time] 1.9 Abnormal 2.0 - 3.0 [facility] INR Coag (BldC) [Relative ti me]on 02-04-2020 Interpretation and review of laboratory results Abnormal [facility] No Panel Informationon 02-03 IMPRESSION: 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 Healing postsurgical changes right humerus. Track Worker: YVETTE Transcribe Date/Time: Feb 04 2020 1:33P Dictated by : KRISTIN BLANCO MD This examination was interpreted and the report reviewed and electronically signed by: KRISTIN BLANCO MD on Feb 04 2020 1:36PM [facility] DIVISION OF RADIOLOGY Radiology Study observation (narrative) [facility] No Panel InformationOrdered By: [facility] Provider on 02-04-2020 [facility] XR Humerus - right AP and La teralon 02-04-2020 * * *Final Report* * * DATE OF EXAM: Feb 04 2020 11:13AM WOX [id number] - XR HUMERUS 2V AP/LAT RT / PROCEDURE REASON: Closed displaced comminuted fracture of shaft of left humerus with routine heali * * * * Physician Interpretation * * * * EXAMINATION: XR SHLDR >/=3V AP/BEHZAD AP/OTHR RT, XR HUMERUS 2V AP/LAT RT CLINICAL HISTORY: recheck on healing of right humerus fx Closed displaced comminuted fracture of shaft of left humerus with routine healing, subsequent encounter Technique: XR SHLDR >/=3V AP/BEHZAD AP/OTHR RT, XR HUMERUS 2V AP/LAT RT -- RIGHT with 3 (accession [id number]), 2 (accession [id number]) views on 3 (accession [id number]), 2 (accession [id number]) images Comparison: 12/18/2019 RESULT: The reverse right total shoulder arthroplasty is unchanged in position alignment. No evidence of loosening or failure. Acromioclavicular joint is maintained. The lateral plate and screw fixation transfixing the mid humeral fracture is unchanged in position alignment; there is progressive callus formation without complete healing. No new fracture identified. Adjacent ribs and lungs are unremarkable. DIVISION OF RADIOLOGY Provider, [facility] - 02/04/2020 * * *Final Report* * * DATE OF EXAM: Feb 04 2020 11:13AM WOX [id number] - XR HUMERUS 2V AP/LAT RT / PROCEDURE REASON: Closed displaced comminuted fracture of shaft of left humerus with routine heali * * * * Physician Interpretation * * * * EXAMINATION: XR SHLDR >/=3V AP/BEHZAD AP/OTHR RT, XR HUMERUS 2V AP/LAT RT CLINICAL HISTORY: recheck on healing of right humerus fx Closed displaced comminuted fracture of shaft of left humerus with routine healing, subsequent encounter Technique: XR SHLDR >/=3V AP/BEHZAD AP/OTHR RT, XR HUMERUS 2V AP/LAT RT -- RIGHT with 3 (accession [id number]), 2 (accession [id number]) views on 3 (accession [id number]), 2 (accession [id number]) images Comparison: 12/18/2019 RESULT: The reverse right total shoulder arthroplasty is unchanged in position alignment. No evidence of loosening or failure. Acromioclavicular joint is maintained. The lateral plate and screw fixation transfixing the mid humeral fracture is unchanged in position alignment; there is progressive callus formation without complete healing. No new fracture identified. Adjacent ribs and lungs are unremarkable. 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 Healing postsurgical changes right humerus. [facility] Transcribe Date/Time: Feb 04 2020 1:33P Dictated by : KRISTIN BLANCO MD This examination was interpreted and the report reviewed and electronically signed by: KRISTIN BLANCO MD on Feb 04 2020 1:36PM EST [facility] XR Shoulder - right 3 Viewso n 02-04-2020 * * *Final Report* * * DATE OF EXAM: Feb 04 2020 11:13AM WOX 5253 - XR SHLDR >/=3V AP/BEHZAD AP/OTHR RT / PROCEDURE REASON: Closed displaced comminuted fracture of shaft of left humerus with routine heali * * * * Physician Interpretation * * * * EXAMINATION: XR SHLDR >/=3V AP/BEHZAD AP/OTHR RT, XR HUMERUS 2V AP/LAT RT CLINICAL HISTORY: recheck on healing of right humerus fx Closed displaced comminuted fracture of shaft of left humerus with routine healing, subsequent encounter Technique: XR SHLDR >/=3V AP/BEHZAD AP/OTHR RT, XR HUMERUS 2V AP/LAT RT -- RIGHT with 3 (accession [id number]), 2 (accession [id number]) views on 3 (accession [id number]), 2 (accession [id number]) images Comparison: 12/18/2019 RESULT: The reverse right total shoulder arthroplasty is unchanged in position alignment. No evidence of loosening or failure. Acromioclavicular joint is maintained. The lateral plate and screw fixation transfixing the mid humeral fracture is unchanged in position alignment; there is progressive callus formation without complete healing. No new fracture identified. Adjacent ribs and lungs are unremarkable. DIVISION OF RADIOLOGY Provider, [facility] - 02/04/2020 * * *Final Report* * * DATE OF EXAM: Feb 04 2020 11:13AM WOX 5253 - XR SHLDR >/=3V AP/BEHZAD AP/OTHR RT / PROCEDURE REASON: Closed displaced comminuted fracture of shaft of left humerus with routine heali * * * * Physician Interpretation * * * * EXAMINATION: XR SHLDR >/=3V AP/BEHZAD AP/OTHR RT, XR HUMERUS 2V AP/LAT RT CLINICAL HISTORY: recheck on healing of right humerus fx Closed displaced comminuted fracture of shaft of left humerus with routine healing, subsequent encounter Technique: XR SHLDR >/=3V AP/BEHZAD AP/OTHR RT, XR HUMERUS 2V AP/LAT RT -- RIGHT with 3 (accession [id number]), 2 (accession [id number]) views on 3 (accession [id number]), 2 (accession [id number]) images Comparison: 12/18/2019 RESULT: The reverse right total shoulder arthroplasty is unchanged in position alignment. No evidence of loosening or failure. Acromioclavicular joint is maintained. The lateral plate and screw fixation transfixing the mid humeral fracture is unchanged in position alignment; there is progressive callus formation without complete healing. No new fracture identified. Adjacent ribs and lungs are unremarkable. 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 Healing postsurgical changes right humerus. Track Worker: [facility] Transcribe Date/Time: Feb 04 2020 1:33P Dictated by : KRISTIN BLANCO MD This examination was interpreted and the report reviewed and electronically signed by: KRISTIN BLANCO MD on Feb 04 2020 1:36PM [facility] Vital Signs Date Time Vital Sign Value Performing Clinician Richard orellana 11-17-2024 10:02040 Body height 162.[address] Yanique Espinosa MD Work Phone: [facility] 11-17-2024 10:02-0400 Body mass index (BMI) [Ratio] 36.6 kg/m2 Dr. Yanique Espinosa MD Work Phone: [facility] 11-17-2024 10:02-0400 Body temperature 97.4 [degF] Dr. Yanique Espinosa MD Work Phone: [facility] 11-17-2024 10:02-0400 Body weight 96.[address] Yanique Espinosa MD Work Phone: [facility] 11-17-2024 10:02-0400 Diastolic blood pressure 58 mm[Hg] Dr. Yanique Espinosa MD Work Phone: [facility] 11-17-2024 10:02-0400 Heart rate 63 /min Dr. Yanique Espinosa MD Work Phone: [facility] 11-17-2024 10:02-0400 Respiratory rate 16 /min Dr. Yanique Espinosa MD Work Phone: [facility] 11-17-2024 10:02-0400 SaO2% (BldA) [Mass fraction] 94 % Dr. Yanique Espinosa MD Work Phone: [facility] 11-17-2024 10:02-0400 Systolic blood pressure 108 mm[Hg] Dr. Yanique Espinosa MD Work Phone: [facility] 09-17-2024 08:45-0400 Body mass index (BMI) [Ratio] 38.7 kg/m2 Dr. Yanique Espinosa MD Work Phone: [facility] 09-17-2024 08:45-0400 Body temperature 97.4 [degF] Dr. Yanique Espinosa MD Work Phone: [facility] 09-17-2024 08:45-0400 Body weight 102.[address] Yanique Espinosa MD Work Phone: [facility] 09-17-2024 08:45-0400 Diastolic blood pressure 64 mm[Hg] Dr. Yanique Espinosa MD Work Phone: [facility] 09-17-2024 08:45-0400 Heart rate 70 /min Dr. Yanique Espinosa MD Work Phone: [facility] 09-17-2024 08:45-0400 Inhaled oxygen flow rate 2 L/min Dr. Yanique Espinosa MD Work Phone: [facility] 09-17-2024 08:45-0400 Respiratory rate 20 /min Dr. Yanique Espinosa MD Work Phone: [facility] 09-17-2024 08:45-0400 SaO2% (BldA) [Mass fraction] 97 % Dr. Yanique Espinosa MD Work Phone: [facility] 09-17-2024 08:45-0400 Systolic blood pressure 116 mm[Hg] Dr. Yanique Espinosa MD Work Phone: [facility] 08-06-2024 14:31-0400 Body height 162.[address] Yanique Espinosa MD Work Phone: [facility] 08-06-2024 14:31-0400 Body mass index (BMI) [Ratio] 37.8 kg/m2 Dr. Yanique Espinosa MD Work Phone: [facility] 08-06-2024 14:31-0400 Body temperature 97 [degF] Dr. Yanique Espinosa MD Work Phone: [facility] 08-06-2024 14:31-0400 Body weight 100.[address] Yanique Espinosa MD Work Phone: [facility] 08-06-2024 14:31-0400 Diastolic blood pressure 78 mm[Hg] Dr. Yanique Espinosa MD Work Phone: [facility] 08-06-2024 14:31-0400 Heart rate 67 /min Dr. Yanique Espinosa MD Work Phone: [facility] 08-06-2024 14:31-0400 Respiratory rate 16 /min Dr. Yanique Espinosa MD Work Phone: [facility] 08-06-2024 14:31-0400 SaO2% (BldA) [Mass fraction] 67 % Dr. Yanique Espinosa MD Work Phone: [facility] 08-06-2024 14:31-0400 Systolic blood pressure 138 mm[Hg] Dr. Yanique Espinosa MD Work Phone: [facility] 05-07-2024 09:13-0500 Body mass index (BMI) [Ratio] 38.7 kg/m2 Dr. Yanique Espinosa MD Work Phone: [facility] 05-07-2024 09:13-0500 Body temperature 96.8 [degF] Dr. Yanique Espinosa MD Work Phone: [facility] 05-07-2024 09:13-0500 Body weight 102.[address] Yanique Espinosa MD Work Phone: [facility] 05-07-2024 09:13-0500 Diastolic blood pressure 62 mm[Hg] Dr. Yanique Espinosa MD Work Phone: [facility] 05-07-2024 09:13-0500 Heart rate 67 /min Dr. Yanique Espinosa MD Work Phone: [facility] 05-07-2024 09:13-0500 Respiratory rate 14 /min Dr. Yanique Espinosa MD Work Phone: [facility] 05-07-2024 09:13-0500 SaO2% (BldA) [Mass fraction] 98 % Dr. Yanique Espinosa MD Work Phone: [facility] 05-07-2024 09:13-0500 Systolic blood pressure 110 mm[Hg] Dr. Yanique Espinosa MD Work Phone: [facility] 08-06-2023 13:26-0400 Body height 162.[address] Sabas Beverly Work Phone: [facility] 08-06-2023 13:26-0400 Body mass index (BMI) [Ratio] 39.3 kg/m2 Dr. Sabas Beverly Work Phone: [facility] 08-06-2023 13:26-0400 Body temperature 98.9 [degF] Dr. Sabas Beverly Work Phone: [facility] 08-06-2023 13:26-0400 Body weight 103.[address] Sabas Beverly Work Phone: [facility] 08-06-2023 13:26-0400 Diastolic blood pressure 70 mm[Hg] Dr. Sabas Beverly Work Phone: [facility] 08-06-2023 13:26-0400 Heart rate 77 /min Dr. Sabas Beverly Work Phone: [facility] 08-06-2023 13:26-0400 Inhaled oxygen flow rate 2 L/min Dr. Sabas Beverly Work Phone: [facility] 08-06-2023 13:26-0400 Respiratory rate 16 /min Dr. Sabas Beverly Work Phone: [facility] 08-06-2023 13:26-0400 SaO2% (BldA) [Mass fraction] 97 % Dr. Sabas Beverly Work Phone: [facility] 08-06-2023 13:26-0400 Systolic blood pressure 112 mm[Hg] Dr. Sabas Beverly Work Phone: [facility] 05-07-2023 13:46-0500 Body height 162.[address] Yanique Espinosa Work Phone: [facility] 05-07-2023 13:46-0500 Body mass index (BMI) [Ratio] 38.7 kg/m2 Dr. Yanique Espinosa Work Phone: [facility] 05-07-2023 13:46-0500 Body temperature 98.5 [degF] Dr. Yanique Espinosa Work Phone: [facility] 05-07-2023 13:46-0500 Body weight 102.[address] Yanique Espinosa Work Phone: [facility] 05-07-2023 13:46-0500 Diastolic blood pressure 72 mm[Hg] Dr. Yanique Espinosa Work Phone: [facility] 05-07-2023 13:46-0500 Heart rate 75 /min Dr. Yanique Espinosa Work Phone: [facility] 05-07-2023 13:46-0500 Inhaled oxygen flow rate 2 L/min Dr. Yanique sEpinosa Work Phone: [facility] 05-07-2023 13:46-0500 Respiratory rate 16 /min Dr. Yanique Espinosa Work Phone: [facility] 05-07-2023 13:46-0500 SaO2% (BldA) [Mass fraction] 96 % Dr. Yanique Espinosa Work Phone: [facility] 05-07-2023 13:46-0500 Systolic blood pressure 100 mm[Hg] Dr. Yanique Espinosa Work Phone: [facility] 04-10-2023 07:55-0500 Body mass index (BMI) [Ratio] 39.9 kg/m2 Dr. Yanique Espinosa Work Phone: [facility] 04-10-2023 07:55-0500 Body temperature 97.3 [degF] Dr. Yanique Espinosa Work Phone: [facility] 04-10-2023 07:55-0500 Body weight 105.[address] Yanique Espinosa Work Phone: [facility] 04-10-2023 07:55-0500 Diastolic blood pressure 62 mm[Hg] Dr. Yanique Espinosa Work Phone: [facility] 04-10-2023 07:55-0500 Heart rate 59 /min Dr. Yanique Espinosa Work Phone: [facility] 04-10-2023 07:55-0500 Respiratory rate 20 /min Dr. Yanique Espinosa Work Phone: [facility] 04-10-2023 07:55-0500 SaO2% (BldA) [Mass fraction] 99 % Dr. Yanique Espinosa Work Phone: [facility] 04-10-2023 07:55-0500 Systolic blood pressure 127 mm[Hg] Dr. Yanique Espinosa Work Phone: [facility] 02-08-2023 12:50-0400 Body height 162.[address] Yanique Espinosa Work Phone: [facility] 02-08-2023 12:50-0400 Body weight 106.[address] Yanique Espinosa Work Phone: [facility] 02-08-2023 12:50-0400 Heart rate 63 /min Dr. Yanique Espinosa Work Phone: [facility] 02-08-2023 12:50-0400 Inhaled oxygen flow rate 2 L/min Dr. Yanique Espinosa Work Phone: [facility] 02-08-2023 12:50-0400 SaO2% (BldA) [Mass fraction] 94 % Dr. Yanique Espinosa Work Phone: [facility] 02-05-2023 10:26-0400 Body mass index (BMI) [Ratio] 40.3 kg/m2 Dr. Yanique Espinosa Work Phone: [facility] 02-05-2023 10:26-0400 Body temperature 97.3 [degF] Dr. Yanique Espinosa Work Phone: [facility] 02-05-2023 10:26-0400 Body weight 106.[address] Yanique Espinosa Work Phone: [facility] 02-05-2023 10:26-0400 Diastolic blood pressure 80 mm[Hg] Dr. Yanique Espinosa Work Phone: [facility] 02-05-2023 10:26-0400 Heart rate 70 /min Dr. Yanique Espinosa Work Phone: [facility] 02-05-2023 10:26-0400 Respiratory rate 16 /min Dr. Yanique Espinosa Work Phone: [facility] 02-05-2023 10:26-0400 SaO2% (BldA) [Mass fraction] 97 % Dr. Yanique Espinosa Work Phone: [facility] 02-05-2023 10:26-0400 Systolic blood pressure 128 mm[Hg] Dr. Yanique Espinosa Work Phone: [facility] 02-05-2023 08:02-0400 Body mass index (BMI) [Ratio] 40.3 kg/m2 Dr. Yanique Espinosa Work Phone: [facility] 02-05-2023 08:02-0400 Body temperature 97.4 [degF] Dr. Yanique Espinosa Work Phone: [facility] 02-05-2023 08:02-0400 Body weight 106.[address] Yanique Espinosa Work Phone: [facility] 02-05-2023 08:02-0400 Diastolic blood pressure 73 mm[Hg] Dr. Yanique Espinosa Work Phone: [facility] 02-05-2023 08:02-0400 Heart rate 74 /min Dr. Yanique Espinosa Work Phone: [facility] 02-05-2023 08:02-0400 Respiratory rate 15 /min Dr. Yanique Espinosa Work Phone: [facility] 02-05-2023 08:02-0400 SaO2% (BldA) [Mass fraction] 97 % Dr. Yanique Espinosa Work Phone: [facility] 02-05-2023 08:02-0400 Systolic blood pressure 118 mm[Hg] Dr. Yanique Espinosa Work Phone: [facility] 11-03-2022 14:45-0400 Body height 161.[address] Yanique Espinosa Work Phone: [facility] 11-03-2022 14:45-0400 Body mass index (BMI) [Ratio] 41.7 kg/m2 Dr. Yanique Espinosa Work Phone: [facility] 11-03-2022 14:45-0400 Body temperature 96.7 [degF] Dr. Yanique Espinosa Work Phone: [facility] 11-03-2022 14:45-0400 Body weight 108.[address] Yanique Espinosa Work Phone: [facility] 11-03-2022 14:45-0400 Diastolic blood pressure 76 mm[Hg] Dr. Yanique Espinosa Work Phone: [facility] 11-03-2022 14:45-0400 Heart rate 78 /min Dr. Yanique Espinosa Work Phone: [facility] 11-03-2022 14:45-0400 Respiratory rate 18 /min Dr. Yanique Espinosa Work Phone: [facility] 11-03-2022 14:45-0400 SaO2% (BldA) [Mass fraction] 96 % Dr. Yanique Espinosa Work Phone: [facility] 11-03-2022 14:45-0400 Systolic blood pressure 118 mm[Hg] Dr. Yanique Espinosa Work Phone: [facility] Encounters Encounter Date Encounter Type Care Provider Facility Start: 12-12-2024 ambulatory Yanique Decker ty:[facility] Start: 11-17-2024 End: 11-17-[address] Yanique Espinosa MD -[facility] Work Phone: Start: 11-17-2024 End: 11-17-[address] Yanique Espinosa MD Work Phone: -[facility] Start: 09-17-2024 End: 09-17-[address] Harley Urbina DO -[facility] Work Phone: Start: 09-17-2024 End: 09-17-[address] Yanique Espinosa MD Work Phone: [facility] Work Phone: Start: 08-21-2024 End: 08-21-[address] Yanique Espinosa MD Work Phone: [facility] Work Phone: Start: 08-21-2024 End: 08-21-[address] Yanique Espinosa MD -[facility] Work Phone: Start: 08-21-2024 End: 08-21-2024 ambulatory Yanique Espinosa Facility:[facility] Start: 08-06-2024 End: 08-06-[address] Yanique Espinosa MD -[facility] Work Phone: Start: 08-06-2024 End: 08-06-[address] Yanique Espinosa MD [facility] Start: 08-06-2024 End: 08-06-2024 ambulatory [facility] Facility:[facility] Start: 05-20-2024 End: 05-20-[address] Rajani Cazares DO -Laboratory Phy Office 3rd Flr Start: 05-20-2024 End: 05-20-2024 ambulatory Rajani Cazares Facility:[facility] Start: 05-07-2024 End: 05-07-[address] Yanique Espinosa MD -[facility] Work Phone: Start: 05-07-2024 End: 05-07-2024 ambulatory [facility] Facility:[facility] Start: 03-18-2024 End: 03-18-2024 ambulatory [facility] Facility:[facility] Start: 03-11-2024 End: 03-11-2024 ambulatory [facility] Facility:[facility] Start: 02-08-2024 End: 02-08-2024 ambulatory [facility] Facility:[facility] Start: 01-14-2024 Encounter for genera l adult medical examination without abnormal findings [facility] Start: 01-14-2024 End: 01-14-2024 ambulatory [facility] Facility:[facility] Start: 01-14-2024 End: 01-14-2024 ambulatory [facility] Facility:[facility] Start: 12-28-2023 End: 12-28-2023 Telephone encounter Blas Barba MD Work Phone: [facility] GENERAL SURGERY DEPARTMENT Start: 11-23-2023 Telephone encounter Silva Cobb [facility] Ambulatory Telemanagement Comment on above: PAC TRANSFER OF CARE Start: 10-26-2023 Telephone encounter Dina Angulo [facility] Pharm[facility] Ambulatory Telemanagement Comment on above: Anticoagulation Tele phone Fu Start: 09-07-2023 Telephone encounter Silva Cobb [facility] Ambulatory [facility] Start: 08-28-2023 Telephone encounter Silva Cobb [facility] Ambulatory [facility] Comment on above: Anticoagulation Tele phone Fu (Home INR result) Start: 08-14-2023 Telephone encounter Silva Cobb [facility] Comment on above: Anticoagulation Tele phone Fu (Home INR result) Start: 08-14-[address] Sabas Beverly Work Phone: [facility] Work Phone: Start: 08-06-2023 End: 08-06-[address] Sabas Beverly Work Phone: [facility] Work Phone: Start: 08-06-2023 End: 08-06-[address] Sabas Beverly Work Phone: [facility] Internal [facility] Work Phone: Start: 07-19-2023 Telephone encounter Janis Ott [facility] Ambulatory Telemanagement Comment on above: Anticoagulation Tele phone Fu (Home INR) Start: 07-12-2023 End: 07-12-[address] Sabas Beverly Work Phone: [facility] Work Phone: Start: 07-11-2023 Telephone encounter Marvin Robertson [facility] Ambulatory Telemanagement Comment on above: Anticoagulation Tele phone Fu (INR Home Test Result) Start: 06-20-2023 End: 06-20-[address] Yanique Espinosa Work Phone: [facility] Work Phone: Start: 06-20-2023 End: 06-20-[address] Yanique Espinosa Work Phone: [facility], [facility] Start: 06-12-2023 End: 06-12-[address] Yanique Espinosa Work Phone: [facility] Work Phone: Start: 06-12-2023 End: 06-12-[address] Yanique Espinosa Work Phone: [facility] Work Phone: Start: 06-11-2023 Telephone encounter [facility] Comment on above: Anticoagulation Tele phone Fu (Home INR Result ) Start: 05-21-2023 Telephone encounter [facility] Comment on above: Anticoagulation Tele phone Fu (Home INR Result ) Start: 05-07-2023 End: 05-07-[address] Yanique Espinosa Work Phone: [facility] Work Phone: Start: 05-07-2023 End: 05-07-[address] Yanique Espinosa Work Phone: [facility] Internal Medicine Work Phone: Start: 04-10-2023 End: 04-10-[address] Yanique [facility]spinosa [facility] Work Phone: Start: 03-28-2023 Telephone encounter Pharmacist [facility] Comment on above: Refill Request Start: 03-22-2023 Telephone encounter Janis Ott [facility] Ambulatory Telemanagement Comment on above: Anticoagulation Tele phone Fu (Home INR) Start: 03-12-2023 Non-patient / Non-visit Dr. Asha Espinosa Work Phone: [facility] Start: 03-12-2023 End: 03-12-[address] Yanique Espinosa Work Phone: [facility] Work Phone: Start: 03-12-2023 End: 03-12-[address] Yanique Espinosa Work Phone: [facility] Work Phone: Start: 03-08-2023 Telephone encounter Janis Ott [facility] Ambulatory Telemanagement Comment on above: Anticoagulation Tele phone Fu (Home INR) Start: 02-21-2023 End: 02-21-[address] Yanique Espinosa Work Phone: [facility] Work Phone: Start: 02-21-2023 End: 02-21-[address] Ynaique Espinosa Work Phone: [facility] Work Phone: Start: 02-19-2023 Telephone encounter [facility] Comment on above: Anticoagulation Tele phone Fu (Home INR Result ) Start: 02-12-2023 ambulatory Iftikhar Cerrato [facility] [place] Comment on above: Population Health Na vigation Outreach (HCC) Start: 02-09-2023 Non-patient / Non-visit Dr. Asha Espinosa Work Phone: [facility] Start: 02-08-2023 End: 02-08-[address] Yanique Espinosa Work Phone: [facility] Work Phone: Start: 02-08-2023 End: 02-08-[address] Yanique Espinosa Work Phone: [facility]/Neurology Work Phone: Start: 02-07-2023 Non-patient / Non-visit Dr. Asha Espinosa Work Phone: [facility] Start: 02-06-2023 End: 02-06-[address] Yanique Espinosa Work Phone: [facility] Work Phone: Start: 02-06-2023 End: 02-06-[address] Yanique Espinosa Work Phone: [facility]/Neurology Work Phone: Start: 02-05-2023 End: 02-05-[address] Yanique Espinosa Work Phone: [facility] Internal Medicine Work Phone: Start: 02-05-2023 End: 02-05-[address] Yanique Espinosa Work Phone: [facility] [place] Work Phone: Start: 02-01-2023 Telephone encounter Adriane Cintron [facility] Ambulatory Telemanagement Comment on above: Anticoagulation Tele phone Fu (Home INR) Start: 01-19-2023 Telephone encounter Marvin Robertson [facility] Ambulatory Telemanagement Comment on above: Anticoagulation Tele phone Fu Start: 01-10-2023 End: 01-10-[address] Yanique Espinosa Work Phone: [facility] Internal Medicine Work Phone: Start: 01-05-2023 Telephone encounter Marvin Robertson [facility] Ambulatory Telemanagement Comment on above: Anticoagulation Tele phone Fu (INR Home Test Result) Start: 12-20-2022 Telephone encounter [facility] Comment on above: Anticoagulation Tele phone Fu (Home INR result ) Start: 12-13-2022 End: 12-13-2022 Phys/qhp telephone evaluation 11-20 min Blas Barba MD Work Phone: [facility] Comment on above: IPMN (intraductal pa pillary mucinous neoplasm) (Primary Dx); Body mass index (BMI) 40.0-44.9, adult (HCC) Start: 12-12-2022 Telephone encounter Silva Cobb [facility] Ambulatory Telemanagement Comment on above: Anticoagulation Tele phone Fu (Home INR result) Start: 12-06-2022 End: 12-06-2022 ambulatory NOAMAN ALI Facility:[facility] Start: 12-06-2022 End: 12-06-2022 Subsequent hospital visit by physician Mri Radio Replaced By [facility] (I-Stat/1.5t) Work Phone: Radiology Comment on above: IPMN (intraductal pa pillary mucinous neoplasm) [D49.0] Start: 11-27-2022 Telephone encounter [facility] Comment on above: Anticoagulation Tele phone Fu (Home INR Result ) Start: 11-22-2022 Telephone encounter Pharmacist [facility] Comment on above: Anticoagulation Tele phone Fu Start: 11-15-2022 End: 11-15-[address] Yanique Espinosa Work Phone: [facility] Work Phone: Start: 11-15-2022 End: 11-15-[address] Yanique Espinosa Work Phone: [facility] Work Phone: Start: 11-10-2022 Telephone encounter Marvin Robertson [facility] Ambulatory Telemanagement Comment on above: Anticoagulation Tele phone Fu Start: 11-03-[address] Marky Espinosa Work Phone: [facility] Start: 11-03-2022 End: 11-03-[address] Yanique Espinosa Work Phone: [facility] Work Phone: Start: 11-03-2022 End: 11-03-[address] Yanique Espinosa Work Phone: [facility] [place] Start: 11-03-2022 End: 11-03-[address] Yanique Espinosa Work Phone: [facility] Internal Medicine Work Phone: Start: 10-02-2022 Telephone encounter [facility] Comment on above: Anticoagulation Tele phone Fu (Home INR Result ) Start: 09-12-2022 Telephone encounter Silva Cobb [facility] Ambulatory Telemanagement Comment on above: Anticoagulation Tele phone Fu (Home INR ) Start: 08-21-2022 Telephone encounter [facility] Comment on above: Anticoagulation Tele phone Fu (Home INR Result ) Start: 08-02-2022 End: 08-02-2022 ambulatory MORENO Swan [facility] Start: 08-01-2022 Telephone encounter Silva Cobb [facility] Ambulatory Telemanagement Comment on above: Anticoagulation Tele phone Fu (Home INR result) Start: 07-13-2022 Telephone encounter Janis Ott [facility] Ambulatory Telemanagement Comment on above: Anticoagulation Tele phone Fu (Home INR) Start: 06-29-2022 Telephone encounter Janis Ott [facility] Ambulatory Telemanagement Comment on above: Anticoagulation Tele phone Fu (Home INR) Start: 06-13-2022 Telephone encounter Silva Cobb [facility] Ambulatory Telemanagement Comment on above: Anticoagulation Tele phone Fu (Home INR result) Start: 05-23-2022 Telephone encounter Silva Cobb [facility] Ambulatory Telemanagement Comment on above: Anticoagulation Tele phone Fu Start: 05-19-2022 Telephone encounter Ashtyn Jackson [facility] Comment on above: Anticoagulation Tele phone Fu (Home INR expected) Start: 05-05-2022 Telephone encounter Marvin Marcelo [facility] Ambulatory Telemanagement Comment on above: Anticoagulation Tele phone Fu (INR Home Test Result) Start: 05-04-2022 Telephone encounter Janis Ott [facility] Ambulatory Telemanagement Comment on above: Anticoagulation Tele phone Fu (Home INR) Start: 04-20-2022 Telephone encounter Janis Ott [facility] Ambulatory Telemanagement Comment on above: Anticoagulation Tele phone Fu (Home INR) Start: 04-06-2022 Telephone encounter Janis Ott [facility] Ambulatory Telemanagement Comment on above: Anticoagulation Tele phone Fu (Home INR result) Start: 03-30-2022 Telephone encounter [facility] Comment on above: Anticoagulation Tele phone Fu (Home INR result) Start: 03-23-2022 Telephone encounter Janis Ott [facility] Ambulatory Telemanagement Comment on above: Anticoagulation Tele phone Fu (Home INR result) Start: 03-16-2022 Telephone encounter Janis Ott [facility] Ambulatory Telemanagement Comment on above: Anticoagulation Tele phone Fu (Home INR result) Start: 03-09-2022 Telephone encounter Janis Ott [facility] Ambulatory Telemanagement Comment on above: Anticoagulation Tele phone Fu (Home INR result) Start: 03-03-2022 Telephone encounter Susan Jeremie [facility] Ambulatory Telemanagement Comment on above: Anticoagulation Tele phone Fu Start: 02-23-2022 Telephone encounter Janis Ott [facility]ulatory Telemanagement Comment on above: Anticoagulation Tele phone Fu (Home INR result) Start: 02-17-2022 Telephone encounter [facility] Ambulatory Telemanagement Comment on above: Anticoagulation Tele phone Fu (INR Home Test Result) Start: 02-10-2022 Telephone encounter Marvin Cross [facility] Ambulatory Telemanagement Comment on above: Anticoagulation Tele phone Fu (INR Home Test Result) Start: 02-03-2022 Telephone encounter Marvin Cross [facility] Ambulatory Telemanagement Comment on above: Anticoagulation Tele phone Fu (INR Home Test Result) Start: 01-27-2022 Telephone encounter [facility] Comment on above: Anticoagulation Tele phone Fu (INR Home Test Result) Start: 01-20-2022 Telephone encounter Marvin Cross [facility] Ambulatory Telemanagement Comment on above: Anticoagulation Tele phone Fu Start: 01-13-2022 Telephone encounter Marvin Cross [facility] Ambulatory Telemanagement Comment on above: Anticoagulation Tele phone Fu (INR Home Test Result) Start: 01-11-2022 Telephone encounter [facility] Comment on above: Anticoagulation Tele phone Fu (Home INR result expected) Start: 12-06-2021 End: 12-06-2021 ambulatory Viviane Mae MD Work Phone: [facility] Comment on above: IPMN (intraductal pa pillary mucinous neoplasm) (Primary Dx); Acute pancreatitis, unspecified complication status, unspecified pancreatitis type Start: 12-06-2021 End: 12-06-2021 Telemedicine consultation with patient Viviane Mae MD Work Phone: [facility] Start: 12-02-2021 Telephone encounter Marvin Cross [facility] Ambulatory Telemanagement Comment on above: Anticoagulation Tele phone Fu Start: 11-01-2021 Telephone encounter Adriane Cintron [facility] Ambulatory Telemanagement Comment on above: Anticoagulation Tele phone Fu (Home INR ) Start: 10-25-2021 Telephone encounter [facility] Amb[facility] Telemanagement Comment on above: Anticoagulation Tele phone Fu (Home INR resul) Start: 10-21-2021 End: 10-21-2021 Subsequent hospital visit by physician Mri Bath (1.5t/Lg Bore 70cm) Work Phone: [facility] Comment on above: Pancreatic cyst [K86 .2] Start: 10-12-2021 Telephone encounter [facility] Tele[facility] Comment on above: Anticoagulation Tele phone Fu (Home INR result) Start: 10-05-2021 Telephone encounter [facility] Tele[facility] Comment on above: Anticoagulation Tele phone Fu (Home INR result) Refill Request Referral Update Start: 09-28-2021 Telephone encounter [facility] Tele[facility] Comment on above: Anticoagulation Tele phone Fu Start: 09-13-2021 Telephone encounter Silva Cobb [facility] Ambulatory Telemanagement Comment on above: Anticoagulation Tele phone Fu (Home INR result) Start: 09-02-2021 Telephone encounter Marvin Marcelo [facility] Ambulatory Telemanagement Comment on above: Anticoagulation Tele phone Fu (INR Home Test Result) Start: 09-01-2021 ambulatory Kat Quintana RN NURSE MYSQL DBA Comment on above: Opened In Error Start: 07-20-2021 Telephone encounter [facility] Comment on above: Anticoagulation Tele phone Fu (Home INR ) Start: 07-06-2021 Telephone encounter [facility] Tele[facility] Comment on above: Anticoagulation Tele phone Fu (Home INR result) Start: 06-09-2021 Refill Bg Beverly MD Work Phone: [facility] [place] Comment on above: Refill Request Start: 02-04-2020 End: 02-04-2020 Subsequent hospital visit by physician Chetan Replaced By [facility] [place] Work Phone: Radiology Comment on above: Closed displaced com minuted fracture of shaft of left humerus with routine healing, subsequent encounter [S42.352D] Start: 08-20-2018 Patient encounter procedure VIVIANE MAE Facility:[facility] Start: 08-05-2018 End: 08-06-2018 Patient encounter procedure VIVIANE MAE Facility:[facility] Start: 07-23-2018 End: 07-23-2018 Patient encounter procedure VIVIANE MAE Facility:[facility] Procedures Date Procedure Procedure Detail Performing Clinician Start: 08-21-2024 Screening mammography Meli Espinosa MD Work Phone: Start: 05-20-2024 Measurement of renal function Dr. Yanique Espinosa MD Work Phone: Comment on above: GFR Calc Start: 08-14-[address] Sabas Beverly Work Phone: Start: 06-12-2023 Dual energy X-ray absorptiometry Dr. Yanique Espinosa Work Phone: Start: 02-21-2023 Screening mammography Meli Espinosa Work Phone: Start: 12-06-2022 Mri abdomen w/o & w/contrast material Viviane Mae MD Work Phone: Start: 03-03-2022 Prothrombin time [facility] Start: 02-03-2022 Prothrombin time [facility] Start: 10-21-2021 Mri abdomen w/o & w/contrast material Viviane Mae MD Work Phone: Start: 07-06-2021 Prothrombin time [facility] Start: 04-27-2021 Mammography Kristy T samanta [facility] Start: 02-04-2020 INR in Platelet poor plasma by Coagulation assay Pharmacist [facility] Start: 02-04-2020 Radex humerus minimu m 2 views Tanner Case MD Work Phone: Start: 03-14-2019 Colonoscopy Kristy T samanta [facility] Start: 11-28-2018 H/O: 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 Kristy Carrillo [facility] Plan of Treatment Date Care Activity Detail Author Start: 03-14-2029 Colonoscopy COLONOSCOPY [facility] Start: 03-14-2029 COLORECTAL CANCER SCREENING COLORECTAL CANCER SCREENING [facility] Start: 03-14-2029 Screening for malign ant neoplasm of colon [facility] Start: 04-24-2027 Urine microalbumin profile [facility] Start: 12-14-2023 End: 01-12-2024 Mri abdomen w/o & w/contrast material MRI PANC/ZAYRA WO/W IVCON Radiology Routine IPMN (intraductal papillary mucinous neoplasm) Expected: 12/14/2023, Expires: 01/12/2024 [facility] Work Phone: Comment on above: Expected: 12/14/2023 , Expires: 01/12/2024 Start: 12-09-2023 Covid-19 Vaccine () Covid-19 Vaccine () [facility] Start: 12-09-2023 Covid-19 Vaccine () Covid-19 Vaccine () [facility] Start: 12-09-2023 Influenza vaccination C [facility] Start: 08-06-2023 Patient referral [facility] Work Phone: Start: 06-12-2023 Dual energy X-ray absorptiometry Dexa Bone Density Study [facility] Start: 04-09-2023 Advance Directive Discussion Advance Directive Discussion [facility] Start: 02-01-2023 Hemoglobin A1c measurement HbA1C [facility] Start: 02-01-2023 Hemoglobin A1c/Hemoglobin.total in Blood HBA1C [facility] Start: 12-08-2022 Covid-19 Vaccine () Covid-19 Vaccine () [facility] Start: 12-08-2022 Influenza vaccination C [facility] Start: 12-06-2022 End: 01-05-2023 Mri abdomen w/o & w/contrast material MRI PANC/ZAYRA WO/W IVCON Radiology Routine IPMN (intraductal papillary mucinous neoplasm) Expected: 12/06/2022, Expires: 01/05/2023 [facility] Work Phone: Comment on above: Expected: 12/06/2022 , Expires: 01/05/2023 Start: 06-10-2022 ANNUAL PCP TEAM RES COUNSELOR IVETTE DISEASE VISIT ANNUAL PCP TEAM CHRONIC DISEASE VISIT [facility] Start: 06-10-2022 BP CONTROLLED (<130/80) BP CONTROLLE D (<130/80) [facility] Start: 04-29-2022 3 comp foot exam completed DIABETIC FOOT EXAM [facility] Start: 04-29-2022 Diabetic foot examination Diabetic Foot Exam [facility] Start: 04-29-2022 Hepatitis B screening URINE ALBUMIN:CREATININE RATIO [facility] Start: 04-27-2022 Mammography [facility] Start: 04-27-2022 Screening for malign ant neoplasm of breast Mammogram Screening [facility] Start: 04-09-2022 ADVANCE DIRECTIVE DISCUSSION ADVANCE DIRECTIVE DISCUSSION [facility] Start: 03-20-2022 Shingrix Vaccine (2 of 2) Shingrix Vaccine (2 of 2) [facility] Start: 01-20-2022 Glaucoma screening Dilated Retinal E xam [facility] Start: 01-20-2022 Hepatitis C antibody , confirmatory test DILATED RETINAL EXAM [facility] Start: 12-08-2021 Influenza vaccination INFLUENZA (#1) [facility] Start: 11-29-2021 BP CONTROLLED (<130/80) BP CONTROLLE D (<130/80) [facility] Start: 11-26-2021 Hepatitis B surface antibody level LDL CHOLESTEROL [facility] Start: 10-25-2021 Hemoglobin A1c/Hemoglobin.total in Blood HBA1C [facility] Start: 05-01-2021 COVID-19 VACCINE (3 - Booster for Pfizer series) COVID-19 VACCINE (3 - Booster for Pfizer series) [facility] Start: 04-09-2021 ADVANCE DIRECTIVE DISCUSSION ADVANCE DIRECTIVE DISCUSSION [facility] Start: 01-24-2021 COVID-19 VACCINE (3 - Booster for Pfizer series) COVID-19 VACCINE (3 - Booster for Pfizer series) [facility] Start: 01-24-2021 COVID-19 VACCINE (3 - Pfizer series) COVID-19 VACCINE (3 - Pfizer series) [facility] Start: 09-16-2019 PNEUMOVAX AGE 65 AND OVER WITH 5YR LOOKBACK (#1) PNEUMOVAX AGE 65 AND OVER WITH 5YR LOOKBACK (#1) [facility] Start: 2014 Hepatitis B Vaccine (1 of 3 - Risk 3-dose series) Hepatitis B Vaccine (1 of 3 - Risk 3-dose series) [facility] Start: 2014 RSV Vaccine (1 - 1-d ose 60+ series) RSV Vaccine (1 - 1-dose 60+ series) [facility] Start: 2014 RSV Vaccine (1 - Ris k 60-74 years 1-dose series) RSV Vaccine (1 - Risk 60-74 years 1-dose series) [facility] Start: 11-25-2011 Pneumococcal Vaccine : 65+ (2 - PCV) Pneumococcal Vaccine: 65+ (2 - PCV) [facility] Start: 11-25-2011 Pneumococcal Vaccine : 65+ (2 of 2 - PCV) Pneumococcal Vaccine: 65+ (2 of 2 - PCV) [facility] Start: 11-25-2011 PNEUMOCOCCAL: 65+ (2 - PCV) PNEUMOCOCCAL: 65+ (2 - PCV) [facility] Start: 2004 SHINGRIX VACCINE (1 of 2) SHINGRIX VACCINE (1 of 2) [facility] Start: 09-16-1999 COLOGUARD (FIT-DNA) COLOGUARD (FIT-D NA) [facility] Start: 09-16-[address] COLONOGRAPHY [facility] Start: 09-16-1999 FECAL OCCULT BLOOD FECAL OCCULT BLOO D [facility] Start: 09-16-1999 Screening for malign ant neoplasm of colon [facility] Start: 09-16-1999 SIGMOIDOSCOPY SIGMOIDOSCOPY [facility] Start: 1972 HEPATITIS C SCREENING HEPATITIS C SC JOSUÉ [facility] Start: 1960 PNEUMOCOCCAL: 65+ (1 - PCV) PNEUMOCOCCAL: 65+ (1 - PCV) [facility] CBC W Auto Different ial panel - Blood [facility] Comprehensive metabo lic 1999 panel - Serum or Plasma [facility] CT angiography of coronary arteries [facility] DXA Bone [Mass/Area] Bone density [facility] MG Breast - bilatera l Screening [facility] End: 01-12-2024 MRI 3D POST PROCESSING MRI 3D POST PROCESSING Radiology Routine IPMN (intraductal papillary mucinous neoplasm) 1 Occurrences starting 12/13/2022 until 01/12/2024 [facility] Work Phone: Comment on above: 1 Occurrences starti ng 12/13/2022 until 01/12/2024 Mri abdomen w/o & w/contrast material MRI ABDOMEN WO/W IVCON Radiology Routine Pancreatic cyst 10/21/2021 10:48 AM EDT [facility] Work Phone: Patient referral [facility] Work Phone: Thyroid stimulating hormone measurement [facility] Immunizations Immunization Date Immunization Notes Care Provider Fa [facility] 02-05-2023 influenza, injectabl e, quadrivalent, preservative free Dr. Yanique Espinosa Work Phone: [facility] 02-05-2023 influenza virus vacc ine, unspecified formulation Blas Barba MD Work Phone: [facility] 01-23-2022 influenza, injectabl e, quadrivalent, preservative free Dr. Yanique Espinosa MD Work Phone: [facility] 01-23-2022 influenza virus vacc ine, unspecified formulation [facility] 02-25-2021 influenza, high dose seasonal, preservative-free [facility] 11-29-2020 Covid (Pfizer) Dr. Yanique Espinosa MD Work Phone: [facility] 11-08-2020 COVID-19 vaccine, ag e 12+ yr (PFIZER-BIONTECH - PURPLE TOP) [facility] Work Phone: 01-13-2020 influenza, high-dose , quadrivalent vaccine (FLUZONE HIGH DOSE QUADRIVALENT) [facility] 04-24-2019 influenza, injectabl e, quadrivalent, contains preservative [facility] 04-25-2018 influenza, injectabl e, quadrivalent, contains preservative Kristy [facility] 04-23-2017 tetanus and diphther ia toxoids, adsorbed, preservative free, for adult use (5 Lf of tetanus toxoid and 2 Lf of diphtheria toxoid) [facility] 01-31-2017 influenza, injectabl e, quadrivalent, contains preservative Kristy [facility] 01-31-2017 influenza, injectabl e, quadrivalent, preservative free Dr. Yanique Espinosa MD Work Phone: [facility] 04-07-2016 influenza, injectabl e, quadrivalent, contains preservative Kristy [facility] 04-07-2016 influenza, injectabl e, quadrivalent, preservative free Dr. Yanique Espinosa MD Work Phone: [facility] 04-05-2015 influenza, injectabl e, quadrivalent, contains preservative Kristy [facility] 04-05-2015 influenza, injectabl e, quadrivalent, preservative free Dr. Yanique Espinosa MD Work Phone: [facility] 03-30-2014 influenza, seasonal, injectable [facility] 03-27-2013 influenza virus vacc ine, unspecified formulation [facility] 03-25-2012 influenza virus vacc ine, unspecified formulation [facility] 11-24-2010 pneumococcal polysaccharide vaccine, 23 valent [facility] 02-19-2006 tetanus and diphther ia toxoids, adsorbed, preservative free, for adult use (2 Lf of tetanus toxoid and 2 Lf of diphtheria toxoid) [facility] Work Phone: Payers Date Payer Category Payer Self-pay [id number] 2020 Medicare UHC AARP MEDICAR E [facility] MEDICARE PPO [id number] 2020-[facility] [phone] [address] [address] [place] [address] PPO [id number] 2020 Unknown [id number] 2019 Medicare [id number] 2013 Unknown [id number] 1954 Unknown [id number] [id number] 1954 Unknown [id number] [id number] 1954 Unknown [id number] 2.840.1.962345.3.579.2.278 1954 Unknown [id number] 2.840.1.907874.3.579.2.651 Medicare [id number] Unknown [id number] Unknown [id number] [id number] Unknown [id number] 2.16840.1.131510.3.579.2.462 Unknown [id number] 2.16840.1.038737.3.579.2.462 Unknown [id number] 2.16840.1.481498.3.579.2.462 Unknown [id number] 2.16840.1.867473.3.579.2.462 Unknown [id number] 2.16840.1.346876.3.579.2.462 Unknown [id number] [id number]2 Unknown [id number] 2.16.840.1.255983.3.579.2.462 Unknown [id number] 2.16840.1.941829.3.579.2.462 Unknown [id number] [id number] Unknown [id number] [id number] Unknown [id number] Social History Date Type Detail Facility Start: 05-05-2019 End: 07-12-2023 Tobacco smoking status NHIS Ex-smoker [facility] Start: 05-05-2019 Tobacco use and exposure Smokeless tobacco non-user [facility] Start: 06-10-2021 End: 12-13-2022 Alcohol intake Current drinker of alcohol (finding) [facility] Start: 11-12-2020 End: 06-10-2021 History SDOH Alcohol Frequency 2 [facility] Start: 11-12-2020 End: 06-10-2021 History SDOH Alcohol Std Drinks 1 [facility] Start: 04-05-2015 History SDOH Alcohol Comment rarely [facility] Start: 11-12-2020 History SDOH Social Connections Phone 5 [facility] Start: 11-12-2020 History SDOH Social Connections Mandaen 3 [facility] Start: 11-12-2020 Education 15 [facility] Start: 05-05-2019 Tobacco Comment Quit @ age 19 [facility] Start: 1955 Sex Assigned At Female [facility] Start: 01-05-2020 End: 11-29-2021 Exposure to SARS-CoV-2 (event) Not sure [facility] Start: 09-03-2021 End: 09-13-2021 Exposure to SARS-CoV-2 (event) Unable to assess [facility] History of tobacco use Current smoker [facility] Start: 09-06-2018 End: 04-25-2022 History of Social function [facility] Work Phone: Start: 09-06-2018 End: 04-25-2022 Area Deprivation Index [facility] Work Phone: National Score (1-10 0), lower number is lower risk 47 [facility] Work Phone: Start: 04-30-2020 Gender identity Identifies as female gender (finding) [facility] Start: 04-30-2020 Sexual orientation Heterosexual (finding) [facility] Start: 11-03-2022 End: 07-12-2023 Tobacco smoking status NHIS Unknown if ever smoked [facility] Start: 11-17-2019 None [facility] Start: 11-17-2019 Spouse/ Significant Other [facility] Do you belong to any clubs or organizations such as mosque groups, unions, fraternal or athletic groups, or school groups? Yes [facility] Work Phone: Are you now , , , , never or living with a partner? [facility] Work Phone: How often to you hav e a drink containing alcohol? Monthly or less [facility] Work Phone: How many standard dr inks containing alcohol do you have on a typical day? 1 or 2 [facility] Work Phone: How often do you hav e 6 or more drinks on 1 occasion? Never [facility] Work Phone: Do you feel stress - tense, restless, nervous, or anxious, or unable to sleep at night because your mind is troubled all the time - these days [OSQ] Only a little [facility] Work Phone: (I/We) worried [place] (my/our) food would run out before (I/we) got money to buy more. Never true [facility] Work Phone: In the past 12 month s, was there a time when you were not able to pay the mortgage or rent on time? No [facility] Start: 01-14-2020 Alcoholic beverage intake Current non-drinker of alcohol (finding) [facility] Medical Equipment Procedure Code Equipment Code Equipment Origin al Text Equipment Identifier Dates Cable Lcp 1.7mm Stainless Steel 750mm Orthopedic Crimp Cerclage Sterile - [id number] Start: 10-28-2019 Graft Dbx Bone V oid Allograft Freeze Dried Putty 5ml - [id number] Start: 10-28-2019 Humeral Stem, Sm all Shell 12 X 108 Mm [id number] Start: 09-06-2018 Small Socket Ins ert 32 Mm Neutral +4 [id number] Start: 09-06-2018 Head Rsp 32mm -4 mm Offset Glenoid Retain Screw - [id number] Start: 09-06-2018 Pin Lcp 4.5mm Stainless Steel Positioning Cerclage Threaded Sterile - [id number] Start: 10-28-2019 Baseplate Rsp P2 30mm Glenoid Sterile - [id number] Start: 09-06-2018 Plate Lcp Narrow Stainless Steel 152x13.5x4.2mm Bone 8 Hole Limit Contact - [id number] Start: 10-28-2019 Screw Rsp 5mm 26 mm Bone Lock Glenoid Baseplate Shoulder - [id number] Start: 09-06-2018 Screw Rsp 5mm 18 mm Bone Lock Glenoid Baseplate Shoulder - [id number] Start: 09-06-2018 Screw Rsp 5mm 30 mm Bone Lock Glenoid Baseplate Shoulder - [id number] Start: 09-06-2018 Screw Rsp 5mm 34 mm Bone Lock Glenoid Baseplate Shoulder - [id number] Start: 09-06-2018 Screw Lcp 4.5mm 8mm Stainless Steel 30mm Bone Self Tapping Large Hexagonal - [id number] Start: 10-28-2019 Screw Lcp 4.5mm 8mm Stainless Steel 36mm Bone Self Tapping Large Hexagonal - [id number] Start: 10-28-2019 Screw Lcp 4.5mm Stainless Steel 28mm Bone Self Tapping Pediatric Large - [id number] Start: 10-28-2019 Screw Lcp 5mm Fu ll Thread T25 Stainless Steel 14mm Bone Lock Self Tap Tip - [id number] Start: 10-28-2019 Screw Lcp 5mm 4. 4mm T25 Blunt Cone Stainless Steel 12mm Bone Self Tap - [id number] Start: 10-28-2019 [id number] Start: 06-14-2021 End: 12-11-2021 Comment on above: 1 Strip once daily. Pt has [employer] 2 Meter. Test blood sugar(s) 1 times daily. Dx: Type 2 DM - Controlled E11.9 Insulin: No Clinical Notes 09-06-2018 to 08-06-2024 Note Date & Type Note Facility 08-06-2024 Evaluation note Diagnosis Onset Date Resolution Health care maintenance acute A pril 2024 2:15pm History of DVT (deep vein thrombosis) chronic August 06 2:15pm Hypertension chronic August 06, 2024 2:15pm Hypothyroidism chronic July 2:15pm Osteoporosis chronic August 06, 2024 2:15pm Type 2 diabetes mellitus chronic August 06, 2024 2:15pm Hypoxic respiratory failure chronic September 17, 2024 10:27am [facility] Work Phone: 1(687) 689-847701-29-2025 Evaluation note* Diagnosis Onset Date Resolution Status Admit Date History of DVT (deep vein thrombosis) chronic May 07 9:03am Hypertension chronic April 9:03am Hypothyroidism chronic May 072024 9:03am Hypoxic respiratory failure chronic May 07, 2024 9:03am Osteoporosis chronic April 9:03am Type 2 diabetes mellitus chronic May 07, 2024 9:03am Health care maintenance acute A pri 2024 2:15pm History of DVT (deep vein thrombosis) chronic August 06, 2024 2:15pm Hypertension chronic August 06, 2024 2:15pm Hypothyroidism chronic July 2:15pm Osteoporosis chronic August 06, 2024 2:15pm Type 2 diabetes mellitus chronic August 06, 2024 2:15pm [facility] Work Phone: 1(862) 212-347009-20-2024 Telephone encounter Note* Telephone Encounter - Jossy Han - 12/28/2023 9:29 AM EDT Called LM to go over Scheduled Imaging appt and to schedule follow up appt with natalia. Calin Han. MASTER HEARTH TECHNICIAN [facility]09-20-2024 Miscellaneous Notes* Telephone Encounter - Jossy Han - 12/28/2023 9:29 AM EDT Called LM to go over Scheduled Imaging appt and to schedule follow up appt with patient. Calin Han. MASTER HEARTH TECHNICIAN documented [facility] Telephone encounter Note * Telephone Encounter - Mimi (Shrimping Boat CaptainKofi Ernst - 11/23/2023 3:01 PM EDT [facility] Discharge completed at this time. Patient may be re-referred, if deemed appropriate. Kofi Le, Tennis Ball Coverer Hand (manager internet) [facility]08-16-2024 Miscellaneous Notes* Telephone Encounter - Mimi RamosShrimping Boat CaptainKofi Ernst - 11/23/2023 3:01 PM EDT [facility]acy [facility]tico[facility] Discharge completed at this time. Patient may be re-referred, if deemed appropriate. Kofi Le Tennis Ball Coverer Hand (manager internet) [facility] * Telephone Encounter - Silva Cobb RPh - 11/23/2023 2:58 PM EDT Spoke to Kathia in Dr. Espinosa's office. Patient's INRs and warfarin are managed by that office since october. Will discharge her from coumadin clinic. documented [facility] Telephone encounter Note * Telephone Encounter - Silva Cobb RPh - 11/23/2023 2:58 PM EDT Spoke to Kathia in Dr. Espinosa's office. Patient's INRs and warfarin are managed by that office since october. Will discharge her from coumadin clinic. [facility]07-19-2024 Telephone encounter Note* Telephone Encounter - Dina Angulo RPh - 10/26/2023 1:33 PM EDT [facility] Anticoagulation Episode Summary Anticoagulation Care Providers Provider Role Specialty Phone number Bg Beverly MD Referring Family Medicine [phone] Ashley Pabon is a 68 year old year old female patient being evaluated today for a Telemanagement visit. Patient is currently on the following anticoagulant(s) Warfarin. 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 [facility]07-19-2024 Miscellaneous Notes* Telephone Encounter - Dina Angulo RPh - 10/26/2023 1:33 PM EDT [facility] Anticoagulation Episode Summary Anticoagulation Care Providers Provider Role Specialty Phone number Bg Beverly MD Referring Family Medicine [phone] Ashley Pabon is a 68 year old year old female patient being evaluated today for a Telemanagement visit. Patient is currently on the following anticoagulant(s) Warfarin. Labs PT INR (no units) Date Value 03/03/2022 1.5 biotel 02/03/2022 3.7 07/06/2021 2.4 (biotel) INR Home CoaguChek (no units) Date Value 10/26/2023 2.4 09/07/2023 2.2 08/28/2023 4.3 Hemoglobin (g/dL) Date Value 11/26/2020 12.8 [...] heterozygous (hcc) History of pulmonary embolus (pe) correction current use of anticoagulant Anticoagulation Episode Summary Current INR goal: 2.0-3.0 Assessment: INR result of 2.4 is therapeutic Plan: Current Warfarin Dosing As of 10/26/2023 Full warfarin instructions: 2.5 mg every Mon, Wed, Fri; 5 mg all other days Sent [employer] message Advised patient to continue current weekly dose as noted above Next home INR check scheduled on 11/09/2023 Advised patient needs to follow with [facility] MD [facility] for us to continue to manage her Dina Angulo tae Clinical Pharmacist, Pharmacy Anticoagulation Clinic [facility] Pager: [phone]. documented [facility] Telephone encounter Note * Telephone Encounter - Silva Cobb RPh - 09/07/2023 1:41 PM EDT [facility] Anticoagulation Episode Summary Anticoagulation Care Providers Provider Role Specialty Phone number Bg Beverly MD Referring Family Medicine [phone] Ashley Pabon is a 67 year old year old female patient being evaluated today for a Telemanagement visit. Patient is currently on the following anticoagulant(s) Warfarin. Labs PT INR (no units) Date Value 03/03/2022 1.5 biotel 02/03/2022 3.7 07/06/2021 2.4 (biotel) INR Home CoaguChek (no units) Date Value 09/07/2023 2.2 08/28/2023 4.3 08/14/2023 4.3 Hemoglobin (g/dL) Date Value 11/26/2020 12.8 [...] INR goal: 2.0-3.0 Assessment: INR result of 2.2 is therapeutic Plan: Current Warfarin Dosing As of 09/07/2023 Full warfarin instructions: 2.5 mg every Mon, Wed, Fri; 5 mg all other days Left voice message Advised patient to continue current weekly dose as noted above Next home INR check scheduled on 09/20/2023 Silva Cobb RPh Clinical Pharmacist, Pharmacy Anticoagulation Clinic [facility] Pager: [phone]. [facility]05-31-2024 Miscellaneous Notes* Telephone Encounter - Silva Cobb RPh - 09/07/2023 1:41 PM EDT [facility] Anticoagulation Episode Summary Anticoagulation Care Providers Provider Role Specialty Phone number Bg Beverly MD Referring Family Medicine [phone] Ashley Pabon is a 67 year old year old female patient being evaluated today for a Telemanagement visit. Patient is currently on the following anticoagulant(s) Warfarin. Labs PT INR (no units) Date Value 03/03/2022 1.5 biotel 02/03/2022 3.7 07/06/2021 2.4 (biotel) INR Home CoaguChek (no units) Date Value 09/07/2023 2.2 08/28/2023 4.3 08/14/2023 4.3 Hemoglobin (g/dL) Date Value 11/26/2020 12.8 [...] INR goal: 2.0-3.0 Assessment: INR result of 2.2 is therapeutic Plan: Current Warfarin Dosing As of 09/07/2023 Full warfarin instructions: 2.5 mg every Mon, Wed, Fri; 5 mg all other days Left voice message Advised patient to continue current weekly dose as noted above Next home INR check scheduled on 09/20/2023 Silva Cobb RPh Clinical Pharmacist, Pharmacy Anticoagulation Clinic [facility] Pager: [phone]. documented in [facility] encounterPaul[facility]05-[facility] Telephone encounter Note * Telephone Encounter - Silva Cobb RPh - 08/28/2023 10:37 AM EDT [facility] Anticoagulation Episode Summary Anticoagulation Care Providers Provider Role Specialty Phone number Bg Beverly MD Referring Family Medicine [phone] Ashley Pabon is a 67 year old year old female patient being evaluated today for a Telemanagement visit. Patient is currently on the following anticoagulant(s) Warfarin. Labs PT INR (no units) Date Value 03/03/2022 1.5 biotel 02/03/2022 3.7 07/06/2021 2.4 (biotel) INR Home CoaguChek (no units) Date Value 08/28/2023 4.3 08/14/2023 4.3 07/18/2023 2.7 Hemoglobin (g/dL) Date Value 11/26/2020 12.8 [...] result of 4.3 is SUPRAtherapeutic due to: APAP or NSAID use Plan: Current Warfarin Dosing As of 08/28/2023 Full warfarin instructions: 08/27: Hold; Otherwise 2.5 mg every Mon, Wed, Fri; 5 mg all other days Called and spoke to patient/caregiver Advised patient to hold 1 dose then decrease current regimen as noted above Next home INR check scheduled on 09/04/2023 Patient verbalizes understanding of the plan. Silva Cobb RPh Clinical Pharmacist, Pharmacy Anticoagulation Clinic [facility] Pager: [phone]. [facility]05-21-2024 Miscellaneous Notes* Telephone Encounter - Silva Cobb RPh - 08/28/2023 10:37 AM EDT [facility] Anticoagulation Episode Summary Anticoagulation Care Providers Provider Role Specialty Phone number Bg Beverly MD Referring Family Medicine [phone] Ashley Pabon is a 67 year old year old female patient being evaluated today for a Telemanagement visit. Patient is currently on the following anticoagulant(s) Warfarin. Labs PT INR (no units) Date Value 03/03/2022 1.5 biotel 02/03/2022 3.7 07/06/2021 2.4 (biotel) INR Home CoaguChek (no units) Date Value 08/28/2023 4.3 08/14/2023 4.3 07/18/2023 2.7 Hemoglobin (g/dL) Date Value 11/26/2020 12.8 [...] result of 4.3 is SUPRAtherapeutic due to: APAP or NSAID use Plan: Current Warfarin Dosing As of 08/28/2023 Full warfarin instructions: 08/27: Hold; Otherwise 2.5 mg every Mon, Wed, Fri; 5 mg all other days Called and spoke to patient/caregiver Advised patient to hold 1 dose then decrease current regimen as noted above Next home INR check scheduled on 09/04/2023 Patient verbalizes understanding of the plan. Silva Cobb RPh Clinical Pharmacist, Pharmacy Anticoagulation Clinic [facility] Pager: [phone]. documented in [facility] encounterPaul[facility]05-[facility]24 Telephone encounter Note * Telephone Encounter - Silva Cobb RPh - 08/14/2023 12:08 PM EDT [facility] Anticoagulation Episode Summary Anticoagulation Care Providers Provider Role Specialty Phone number Bg Beverly MD Referring Family Medicine [phone] Ashley Pabon is a 67 year old year old female patient being evaluated today for a Telemanagement visit. Patient is currently on the following anticoagulant(s) Warfarin. Labs PT INR (no units) Date Value 03/03/2022 1.5 biotel 02/03/2022 3.7 07/06/2021 2.4 (biotel) INR Home CoaguChek (no units) Date Value 08/14/2023 4.3 07/18/2023 2.7 07/11/2023 2.3 Hemoglobin (g/dL) Date Value 11/26/2020 12.8 [...] result of 4.3 is SUPRAtherapeutic due to: Decreased vitamin k intake Plan: Current Warfarin Dosing As of 08/14/2023 Full warfarin instructions: 08/13: Hold; Otherwise 2.5 mg every Tue; 5 mg all other days Called and spoke to patient/caregiver Advised patient to hold a dose, decrease a dose then resume current warfarin dose Next home INR check scheduled on 08/21/2023 Patient verbalizes understanding of the plan. Silva Cobb RPh Clinical Pharmacist, Pharmacy Anticoagulation Clinic [facility] Pager: [phone]. [facility]05-07-2024 Miscellaneous Notes* Telephone Encounter - Silva Cobb RPh - 08/14/2023 12:08 PM EDT [facility] Anticoagulation Episode Summary Anticoagulation Care Providers Provider Role Specialty Phone number Bg Beverly MD Referring Family Medicine [phone] Ashley Pabon is a 67 year old year old female patient being evaluated today for a Telemanagement visit. Patient is currently on the following anticoagulant(s) Warfarin. Labs PT INR (no units) Date Value 03/03/2022 1.5 biotel 02/03/2022 3.7 07/06/2021 2.4 (biotel) INR Home CoaguChek (no units) Date Value 08/14/2023 4.3 07/18/2023 2.7 07/11/2023 2.3 Hemoglobin (g/dL) Date Value 11/26/2020 12.8 [...] result of 4.3 is SUPRAtherapeutic due to: Decreased vitamin k intake Plan: Current Warfarin Dosing As of 08/14/2023 Full warfarin instructions: 08/13: Hold; Otherwise 2.5 mg every Tue; 5 mg all other days Called and spoke to patient/caregiver Advised patient to hold a dose, decrease a dose then resume current warfarin dose Next home INR check scheduled on 08/21/2023 Patient verbalizes understanding of the plan. Silva Cobb RPh Clinical Pharmacist, Pharmacy Anticoagulation Clinic Pharmacy An[facility] Pager: [phone]. documented in this encounterPaul[facility]04-11-2024 Miscellaneous Notes* Telephone Encounter - Janis Ott, [facility] - 07/19/2023 8:20 AM EDT [facility] Anticoagulation Episode Summary Anticoagulation Care Providers Provider Role Specialty Phone number Bg Beverly MD Referring Family Medicine [phone] Ashley Pabon is a 67 year old year old female patient being evaluated today for a Telemanagement visit. Patient is currently on the following anticoagulant(s) Warfarin. Labs PT INR (no units) Date Value 03/03/2022 1.5 biotel 02/03/2022 3.7 07/06/2021 2.4 (biotel) INR Home CoaguChek (no units) Date Value 07/18/2023 2.7 07/11/2023 2.3 07/09/2023 6.2 Hemoglobin (g/dL) Date Value 11/26/2020 12.8 Hematocrit [...] heterozygous (hcc) History of pulmonary embolus (pe) correction current use of anticoagulant Anticoagulation Episode Summary Current INR goal: 2.0-3.0 Assessment: INR result of 2.7 is therapeutic Plan: Current Warfarin Dosing As of 07/19/2023 Full warfarin instructions: 2.5 mg every Tue; 5 mg all other days Left voice message Advised patient to continue current weekly dose as noted above Next home INR check scheduled on 07/26/2023 Janis Ott tae Clinical Pharmacist, Pharmacy Anticoagulation Clinic Pharmacy [facility] Pager: [phone]. documented in this encounterPaulding [facility]04-[facility]-2024 Miscellaneous Notes* Telephone Encounter - Marvin Robertson RPh - 07/11/2023 10:15 AM EDT [facility] Anticoagulation Episode Summary Anticoagulation Care Providers Provider Role Specialty Phone number Bg Beverly MD Referring Family Medicine [phone] Ashley Pabon is a 67 year old year old female patient being evaluated today for a Telemanagement visit. Patient is currently on the following anticoagulant(s) Warfarin. 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 documented in this encounterPaul[facility]03-04-2024 Miscellaneous Notes* Telephone Encounter - Erica Tejeda RPh - 06/11/2023 10:03 AM EST [facility] Anticoagulation Episode Summary Anticoagulation Care Providers Provider Role Specialty Phone number Bg Beverly MD Referring Family Medicine [phone] Ashley Pabon is a 67 year old year old female patient being evaluated today for a Telemanagement visit. Patient is currently on the following anticoagulant(s) Warfarin. Labs PT INR (no units) Date Value 03/03/2022 1.5 biotel 02/03/2022 3.7 07/06/2021 2.4 (biotel) INR Home CoaguChek (no units) Date Value 06/10/2023 3.8 05/20/2023 2.4 05/02/2023 2.3 CrCl cannot be calculated (Patient's most recent [...] INR goal: 2.0-3.0 Assessment: INR result of 3.8 is SUPRAtherapeutic due to: unknown cause - did not speak to patient Plan: Current Warfarin Dosing As of 06/11/2023 Full warfarin instructions: 06/10: 2.5 mg; Otherwise 2.5 mg every Tue; 5 mg all other days Left voice message Advised patient to decrease dose for 1 day only then resume weekly regimen Next INR check due on 06/25/2023 Patient instructed to call [facility] at [phone] with any questionsor concerns. Erica Tejeda RPh Clinical Pharmacist, Pharmacy Anticoagulation Clinic Pharmacy [facility] Pager: [phone] documented in this encounterPaulding [facility] Hospital02-12-2024 Miscellaneous Notes* Telephone Encounter - Erica Tejeda RPh - 05/21/2023 11:41 AM EST [facility] Anticoagulation Episode Summary Anticoagulation Care Providers Provider Role Specialty Phone number Bg Beverly MD Referring Family Medicine [phone] Ashley Pabon is a 67 year old year old female patient being evaluated today for a Telemanagement visit. Patient is currently on the following anticoagulant(s) Warfarin. Labs PT INR (no units) Date Value 03/03/2022 1.5 biotel 02/03/2022 3.7 07/06/2021 2.4 (biotel) INR Home CoaguChek (no units) Date Value 05/20/2023 2.4 05/02/2023 2.3 04/12/2023 2.7 CrCl cannot be calculated (Patient's most [...] therapeutic Plan: Current Warfarin Dosing As of 05/21/2023 Full warfarin instructions: 2.5 mg every Tue; 5 mg all other days Left voice message Advised patient to continue current weekly dose as noted above Next INR check due on 06/04/2023 Patient instructed to call [facility] at [phone] with any questionsor concerns. Erica Tejeda RPh Clinical Pharmacist, [facility]acy [facility] Pager: [phone] documented in this encounterPaulding County Hospital12-20-2023 Miscellaneous Notes* Telephone Encounter - Tawny Garcia RPh - 03/28/2023 12:15 PM EST The following approved medication requests have been transmitted electronically. Requested Prescriptions Signed Prescriptions Disp Refills warfarin (COUMADIN) 5 mg tablet 90 tablet 3 Sig: Take 5mg (1 tab) by mouth daily or as directed by [facility] Clinic Authorizing Provider: BG BEVERLY Ordering User: TAWNY GARCIA [facility] * Telephone Encounter - Mimi RamosKadmonKofi Ernst - 03/28/2023 11:56 AM EST PATIENT CALL Patient called call center regarding refill Patient requested a medication refill. Patient's pharmacy is [facility]. Refill Medication: warfarin 5 mg tablet(s) Refill request sent to pharmacist Yes PT INR (no units) Date Value 03/03/2022 1.5 biotel 02/03/2022 3.7 07/06/2021 2.4 (biotel) INR Home CoaguChek (no units) Date Value 03/22/2023 3.0 03/08/2023 4.9 02/19/2023 2.4 Kofi Le (Kadmon) documented in this encounterPaulding County Hospital12-14-2023 Miscellaneous Notes* Telephone Encounter - Janis Ott R, [facility] - 03/22/2023 11:03 AM EST [facility] Anticoagulation Episode Summary Anticoagulation Care Providers Provider Role Specialty Phone number Bg Beverly MD Referring Family Medicine [phone] Ashley Pabon is a 67 year old [...] heterozygous (hcc) History of pulmonary embolus (pe) correction current use of anticoagulant Anticoagulation Episode Summary [...] the plan. Patient denies need for refills. Janis Ott RPh Clinical Pharmacist, Pharmacy Anticoagulation Clinic [facility] Pager: [phone]. 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 Patient denies need for refills. Janis Ott [facility] Clinical Pharmacist, Pharmacy Anticoagulation Clinic [facility] Pager: [phone]. documented in this encounterPaulding County Hospital11-13-2023 Miscellaneous Notes* Telephone Encounter - Erica Tejeda RPh - 02/19/2023 1:15 PM EST [facility] Anticoagulation Episode Summary Anticoagulation Care Providers Provider Role Specialty Phone number Bg Beverly MD Referring Family Medicine [phone] Ashley Pabon is a 67 year old [...] instructed to call [facility] at [phone] with any questionsor concerns. Erica Tejeda RP Clinical Pharmacist, Pharmacy [facility] Clinic [facility] Pager: [phone] documented in this encounterPaulding County Hospital11-06-2023 NoteHNO ID: [id number] Author: [facility] Iftikhar Nichols Service: ? Author Type: ? Type: Progress Notes Filed: 02/12/2023 2:05 PM Note Text: POPULATION HEALTH NAVIGATION OUTREACH Action/FYI Updated PCP field per care everywhere documents. Patient Identified by Name and : NO Outreach Outcome/Action PCP field updated Did you use a PCP flex slot to schedule this appointment? N/A Reason for Outreach HCC or suspected condition Iftikhar Cerrato Population Health Navigjames February 12, 2023 2:04 [facility]11-06-2023 History of Present illness Narrative* [facility] Iftikhar Nichols - 02/12/2023 2:04 PM EST POPULATION HEALTH NAVIGATION OUTREACH Action/FYI Updated PCP field per care everywhere documents. Patient Identified by Name and : NO Outreach Outcome/Action PCP field updated Did you use a PCP flex slot to schedule this appointment? N/A Reason for Outreach HCC or suspected condition Iftikhar Cerrato Population Health Navigjames February 12, 2023 2:04 PM documented in this encounterPaulding County Hospital11-06-2023 NotePatient Outreach (NETNAV) ASHLEY PABON ([id number]) 1955 F Date Time Provider Department 02/12/23 IFTIKHAR CERRATO During your visit today, we recorded the following information about you: [facility] Tamiko Nicholssey Shannan 02/12/2023 2:05 PM Signed POPULATION HEALTH NAVIGATION OUTREACH Action/FYI Updated PCP field per care everywhere documents. Patient Identified by Name and : NO Outreach Outcome/Action PCP field updated Did you use a PCP flex slot to schedule this appointment? N/A Reason for Outreach HCC or suspected condition Iftikhar Cerrato Population Health Navigator February 12, 2023 [...] - Rash Date Reviewed: 12/13/2022 Reviewed by: Blas Barba MD - Fully Assessed Reason for Visit: [...] bridging treatment with lovenox (more content not included)...[facility]11-03-2023 Procedure [facility]11-01-2023 Procedure [facility]10-26-2023 Miscellaneous Notes* Telephone Encounter - Adriane Cintron RPh - 02/01/2023 9:39 AM EDT [facility] Anticoagulation Episode Summary Anticoagulation Care Providers Provider Role Specialty Phone number Bg Beverly MD Referring Family Medicine [phone] Ashley Pabon is a 67 year old [...] 7.5 mg; Otherwise 2.5 mg every e, Fri; 5 mg all other days Called and spoke to patient/caregiver Advised patient to increase dose for 1 day only then resume weekly regimen Next home INR check scheduled on 02/08/2023 Patient verbalizes understanding of the plan. Patient denies need for refills. Adriane Cintron RPh Clinical Pharmacist, Pharmacy Anticoagulation Clinic [facility] Pager: [phone]. documented in this encounterPaulding County Hospital10-13-2023 Miscellaneous Notes* Telephone Encounter - Marvin Robertson RPh - 01/19/2023 1:36 PM EDT Patient due to test INR today. Will continue to monitor for results. 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 Patient denies need for refills. Marvin Robertson RPh Clinical Pharmacist, Pharmacy Anticoagulation Clinic [facility] Pager: [phone]. documented in this encounterPaulding County Hospital09-13-2023 Miscellaneous Notes* Telephone Encounter - Kristy Carrillo RPh - 12/20/2022 2:38 PM EDT [facility] Anticoagulation Episode Summary Anticoagulation Care Providers Provider Role Specialty Phone number Bg Beverly MD Referring Family Medicine [phone] Ashley Pabon is a 67 year old [...] the plan. Patient denies need for refills. Kristy Carrillo [facility] Clinical Pharmacist, Pharmacy Anticoagulation Clinic [facility] Pager: [phone]. documented in this encounterPaulding County Hospital09-06-2023 History of Present illness Narrative* Blas Barba MD - 12/13/2022 4:54 PM EDT Images from the original note were not included. Blas Barba M.D. Surgical Oncology [address] [facility], [address] [place] [address] TELEPHONE VISIT NOTE SUBJECTIVE Ashley Pabon is [...] family, and social history were reviewed by Blas Barba MD Plan 67-year-old woman with IPMN. I [...] Total time of telephone encounter: 15 minutes Blas Barba MD 12/13/2022 4:57 PM documented in this encounterPaulding County Hospital09-05-2023 Miscellaneous Notes* Telephone Encounter - Silva Cobb RPh - 12/12/2022 1:03 PM EDT [facility] Anticoagulation Episode Summary Anticoagulation Care Providers Provider Role Specialty Phone number Bg Beverly MD Referring Family Medicine [phone] Ashley Pabon is a 67 year old [...] 12/21/2022 Patient verbalizes understanding of the plan. Silva Cobb RPh Clinical Pharmacist, Pharmacy Anticoagulation Clinic [facility] Pager: [phone]. * Telephone Encounter - Nga Cartagena RN - 12/12/2022 12:53 PM EDT Patient returned the call and can be reached at [phone]. Linsey Cartagena, RN [facility] * Telephone Encounter - Silva Cobb RPh - 12/12/2022 9:14 AM EDT The patient was called to discuss recent INR test results. A voice message was left on patient's Home telephone voice mail. The patient was advised to call the Coumadin Clinic at [phone] and hold x1 (12/12). PT INR (no units) Date Value 03/03/2022 1.5 biotel 02/03/2022 3.7 07/06/2021 2.4 (biotel) INR Home CoaguChek (no units) Date Value 12/11/2022 4.8 11/27/2022 2.3 11/22/2022 6.4 Silva Cobb, PharmD,CACP documented in this encounterPaulding County Hospital08-30-2023 History of Present illness Narrative* Megan Romero, RT(R) - 12/06/2022 8:40 AM EDT Radiology Service Progress Note DATE OF SERVICE: [...] 2022 TIME: 9:16 AM documented in this encounterPaulding County Hospital08-30-2023 NoteHNO ID: [id number] Author: Megan Romero RT (R) Service: ? Author Type: Technologist Type: Progress [...] Pabon DATE: December 06, 2022 TIME: 9:16 [facility]08-21-2023 Miscellaneous Notes* Telephone Encounter - Erica Tejeda RPh - 11/27/2022 2:10 PM EDT [facility] Anticoagulation Episode Summary Anticoagulation Care Providers Provider Role Specialty Phone number Bg Beverly MD Referring Family Medicine [phone] Ashley Pabon is a 67 year old [...] instructed to call [facility] at [phone] with any questionsor concerns. Erica Tejeda RPh Clinical Pharmacist, Pharmacy Anticoagulation Clinic [facility] Pager: [phone] documented in this encounterPaulding County Hospital08-16-2023 Miscellaneous Notes* Telephone Encounter - Mimi RamosShrimping Boat CaptainKofi Ernst - 11/22/2022 11:08 AM EDT [facility] called regarding inr result from today. Result was addressed in 11/10/2022 encounter. No action needed. Kofi Le, Tennis Ball Coverer Hand (manager internet) [facility] documented in this encounterPaulding County Hospital08-04-2023 Miscellaneous Notes* Telephone Encounter - Marvin Robertson RPh - 11/10/2022 3:35 PM EDT Patient due to test INR today. Will continue to monitor for results. Marvin Robertson RPh documented in this encounterPaulding County Hospital06-26-2023 Miscellaneous Notes* Telephone Encounter - Erica Tejeda RPh - 10/02/2022 1:28 PM EDT [facility] Anticoagulation Episode Summary Anticoagulation Care Providers Provider Role Specialty Phone number Bg Beverly MD Referring Family Medicine [phone] Ashley Pabon is a 67 year old [...] 10/16/2022 Patient verbalizes understanding of the plan. Erica Tejeda RPh Clinical Pharmacist, Pharmacy Anticoagulation Clinic [facility] Pager: [phone]. 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 Patient denies need for refills. Kristy Carrillo RPh Clinical Pharmacist, Pharmacy Anticoagulation Clinic [facility] Pager: [phone]. * Telephone Encounter - Silva Cobb RPh - 09/12/2022 3:57 PM EDT Ashley Pabon was called and reminded to test INR today or as soon as possible. Silva Cobb RPh documented in this encounterPaulding County Hospital05-15-2023 Miscellaneous Notes* Telephone Encounter - Erica Tejeda RP - 08/21/2022 4:43 PM EDT [facility] Anticoagulation Episode Summary Anticoagulation Care Providers Provider Role Specialty Phone number Bg Beverly MD Referring Family Medicine [phone] Ashley Pabon is a 66 year old [...] 09/04/2022 Patient verbalizes understanding of the plan. Erica Tejeda RPh Clinical Pharmacist, Pharmacy Anticoagulation Clinic [facility] Pager: [phone]. documented in this encounterPaulding County Hospital04-25-2023 Miscellaneous Notes* Telephone Encounter - Silva Cobb RPh - 08/01/2022 11:48 AM EDT [facility] Anticoagulation Episode Summary Anticoagulation Care Providers Provider Role Specialty Phone number Bg Beverly MD Referring Family Medicine [phone] Ashley Pabon is a 66 year old [...] 08/15/2022 Patient verbalizes understanding of the plan. Silva Cobb RP Clinical Pharmacist, Pharmacy Anticoagulation Clinic [facility] Pager: [phone]. documented in this encounterPaulding County Hospital04-06-2023 Miscellaneous Notes* Telephone Encounter - Janis Ott RP - 07/13/2022 9:01 AM EDT [facility] Anticoagulation Episode Summary Anticoagulation Care Providers Provider Role Specialty Phone number Bg Beverly MD Referring Family Medicine [phone] Ashley Pabon is a 66 year old [...] Sulfa (Sulfonamide * Rash Indication for Warfarin: correction current use of anticoagulant History of pulmonary embolus (pe) Factor 5 leiden mutation, heterozygous (hcc) Anticoagulation Episode Summary Current INR goal: 2.0-3.0 Assessment: INR result of 2.7 is therapeutic Plan: Current Warfarin Dosing As of 07/13/2022 Full warfarin instructions: 2.5 mg every Wed; 5 mg all other days Left voice message Advised patient to continue current weekly dose as noted above Next home INR check scheduled on 07/27/2022 Janis Ott [facility] Clinical Pharmacist, Pharmacy Anticoagulation Clinic Pharmacy An[facility] Clinic Pager: [phone]. 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 documented in this encounterPaulding County Hospital03-07-2023 Miscellaneous Notes* Telephone Encounter - Silva Cobb RPh - 06/13/2022 10:34 AM EST [facility] Anticoagulation Episode Summary Anticoagulation Care Providers Provider Role Specialty Phone number Bg Beverly MD Referring Family Medicine [phone] Ashley Pabon is a 66 year old [...] Next home INR check scheduled on 06/27/2022 Silva Cobb RPh Clinical Pharmacist, Pharmacy Anticoagulation Clinic [facility] Pager: [phone]. documented in this encounterPaulding County Hospital02-15-2023 Miscellaneous Notes* Telephone Encounter - Kristy Carrillo RPh - 05/24/2022 10:48 AM EST Ashley Pabon was called for anticoagulation follow-up. [...] normal dose. She will retest by 05/29. Kristy Carrillo, PharmD [facility] * Telephone Encounter - Kofi Le (Shrimping Boat Captain) - 05/24/2022 9:19 AM EST PATIENT CALL Patient called call center regarding message. Patient stated she was taking Dayquil/ Nyquil for about four days along with mucinex. Patient stated she did hold warfarin yesterday. Patient can be reached at [phone] Kofi Le (Shrimping Boat Captain) * Telephone Encounter - Silva Cobb RP - 05/23/2022 9:08 AM EST The patient was called to discuss recent INR test results. A voice message was left on patient's Home telephone voice mail. The patient was advised to call the Coumadin Clinic at [phone], hold warfarin today and go to ED if any bleeding or bruising. PT INR (no units) Date Value 03/03/2022 1.5 biotel 02/03/2022 3.7 07/06/2021 2.4 (biotel) INR Home CoaguChek (no units) Date Value 05/22/2022 5.1 05/05/2022 1.6 04/21/2022 2.9 Silva Cobb, Pharmacist documented in this encounterPaulding County Hospital02-14-2023 Miscellaneous Notes* Telephone Encounter - Kofi Le (Kadmon) - 05/23/2022 8:49 AM EST PATIENT CALL Frankie called call center regarding results PT INR (no units) Date Value 03/03/2022 1.5 biotel 02/03/2022 3.7 07/06/2021 2.4 (biotel) INR Home CoaguChek (no units) Date Value 05/22/2022 5.1 05/05/2022 1.6 04/21/2022 2.9 Patient can be reached at [phone] Kofi Le (Kadmon) * Telephone Encounter - Ashtyn Jackson RPh - 05/19/2022 4:19 PM EST Pt was due to test INR today. No result received. Will continue to monitor for result. documented in this encounterPaulding County Hospital01-27-2023 Miscellaneous Notes* Telephone Encounter - Nga Cartagena RN - 05/05/2022 1:16 PM EST Davie Carey left a VM regarding the patient's INR result on 05/05. Noted result has been addressed below. 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 Marvin Robertson RPh Clinical Pharmacist, Pharmacy Anticoagulation Clinic Pharmacy Anticoagulation Clinic Pager: [phone]. documented in this encounterPaulding County Hospital01-26-2023 Miscellaneous Notes* Telephone Encounter - Janis Ott RP - 05/04/2022 4:13 PM EST Patient due to test INR today. Will continue to monitor for results. Janis Ott [facility] documented in this encounterPaulding County Hospital01-13-2023 Miscellaneous Notes* Telephone Encounter - Janis Ott RP - 04/21/2022 12:51 PM EST [facility] Anticoagulation Episode Summary Anticoagulation Care Providers Provider Role Specialty Phone number Bg Beverly MD Referring Family Medicine [phone] Ashley Pabon is a 66 year old [...] Sulfa (Sulfonamide * Rash Indication for Warfarin: correction current use of anticoagulant History of pulmonary [...] the plan. Patient denies need for refills. Janis Ott RPh Clinical Pharmacist, Pharmacy Anticoagulation Clinic Pharmacy Anticoagulation Clinic Pager: [phone]. * Telephone Encounter - Janis Ott RPh - 04/20/2022 3:35 PM EST Patient due to test INR today. Will continue to monitor for results. 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 Patient denies need for refills. Janis Ott [facility] Clinical Pharmacist, Pharmacy Anticoagulation Clinic Pharmacy Anticoagulation Clinic Pager: [phone]. documented in this encounterPaulding County Hospital12-22-2022 Miscellaneous Notes* Telephone Encounter - Kristy Carrillo RP - 03/30/2022 11:03 AM EST [facility] Anticoagulation Episode Summary Anticoagulation Care Providers Provider Role Specialty Phone number Bg Beverly MD Referring Family Medicine [phone] Ashley Craven is a 66 year old year old female patient being evaluated today for a Telemanagementvisit. 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 But following recent dose increase. She has been drinking various drinks instead of just slimfast. She may stick with this but she willkeep it up daily. Plan: Current Warfarin Dosing As of 03/30/2022 Full warfarin instructions: 5 mg every day; Starting 03/30/2022 Called and spoke to patient/caregiver Advised patient to hold 1 dose then continue current regimen Next home INR check scheduled on 04/06/2022 Patient verbalizes understanding of the plan. Patient denies need for refills. Kristy Carrillo RPh Clinical Pharmacist, Pharmacy Anticoagulation Clinic Pharmacy Anticoagulation Clinic Pager: [phone]. documented in this encounterPaulding County Hospital12-15-2022 Miscellaneous Notes* Telephone Encounter - Janis Ott RPh - 03/23/2022 12:54 PM EST [facility] Anticoagulation Episode Summary Anticoagulation Care Providers Provider Role Specialty Phone number Bg Beverly MD Referring Family Medicine [phone] Ashley Pabon is a 66 year old [...] Sulfa (Sulfonamide * Rash Indication for Warfarin: correction current use of anticoagulant History of pulmonary [...] the plan. Patient denies need for refills. Janis Ott tae Clinical Pharmacist, Pharmacy Anticoagulation Clinic Pharmacy Anticoagulation Clinic Pager: [phone]. documented in this encounterPaulding County Hospital12-08-2022 Miscellaneous Notes* Telephone Encounter - Janis Ott RPh - 03/16/2022 3:40 PM EST [facility] Anticoagulation Episode Summary Anticoagulation Care Providers Provider Role Specialty Phone number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 [...] of this encounter (statuses as of 03/03/2022) [facility] History of Past illness Narrative* Problem [...] of this encounter (statuses as of 03/09/2022) [facility] of Past illness Narrative* Problem [...] of this encounter (statuses as of 03/13/2022) [facility] History of Past illness Narrative* Problem [...] of this encounter (statuses as of 03/16/2022) [facility] History of Past illness Narrative* Problem [...] of this encounter (statuses as of 03/23/2022) [facility] History of Past illness Narrative* Problem [...] of this encounter (statuses as of 03/31/2022) [facility] History of Past illness Narrative* Problem [...] of this encounter (statuses as of 04/12/2022) [facility] of Past illness Narrative* Problem [...] of this encounter (statuses as of 04/21/2022) [facility] of Past illness Narrative* Problem [...] of this encounter (statuses as of 05/05/2022) [facility] of Past illness Narrative* Problem [...] of this encounter (statuses as of 05/05/2022) [facility] of Past illness Narrative* Problem [...] of this encounter (statuses as of 05/23/2022) [facility] of Past illness Narrative* Problem [...] of this encounter (statuses as of 05/24/2022) [facility] of Past [facility] Narrative* Problem [...] of this encounter (statuses as of 06/13/2022) [facility] of Past illness Narrative* Problem [...] of this encounter (statuses as of 06/30/2022) [facility] of Past illness Narrative* Problem [...] of this encounter (statuses as of 07/13/2022) [facility] History of Past illness Narrative* Problem [...] of this encounter (statuses as of 08/01/2022) [facility] of Past illness Narrative* Problem [...] of this encounter (statuses as of 08/22/2022) [facility] of Past illness Narrative* Problem [...] of this encounter (statuses as of 09/13/2022) [facility] History of Past illness Narrative* Problem [...] of this encounter (statuses as of 10/02/2022) [facility] of Past illness Narrative* Problem [...] of this encounter (statuses as of 11/10/2022) [facility] History of Past illness Narrative* Problem [...] of this encounter (statuses as of 11/22/2022) [facility] of Past illness Narrative* Problem [...] of this encounter (statuses as of 11/28/2022) [facility] of Past illness Narrative* Problem [...] of this encounter (statuses as of 12/12/2022) [facility] Past illness Narrative* Problem [...] of this encounter (statuses as of 12/14/2022) [facility] History of Past illness Narrative* Problem [...] of this encounter (statuses as of 12/21/2022) [facility] History of Past illness Narrative* Problem [...] of this encounter (statuses as of 01/06/2023) [facility] of Past illness Narrative* Problem [...] of this encounter (statuses as of 01/19/2023) [facility] History of Past illness Narrative* Problem [...] of this encounter (statuses as of 02/01/2023) [facility] History of Past illness Narrative* Problem [...] of this encounter (statuses as of 02/11/2023) [facility] History of Past illness Narrative* Problem [...] of this encounter (statuses as of 02/13/2023) [facility] History of Past illness Narrative* Problem [...] of this encounter (statuses as of 02/19/2023) [facility] of Past illness Narrative* Problem [...] of this encounter (statuses as of 03/08/2023) [facility] History of Past illness Narrative* Problem [...] of this encounter (statuses as of 03/22/2023) [facility] of Past illness Narrative* Problem [...] of this encounter (statuses as of 03/29/2023) [facility] of Past illness Narrative* Problem [...] as of this encounter (statuses as of 05/21/2023) [facility] Narrative* Problem [...] as of this encounter (statuses as of 06/11/2023) [facility] Past [facility] Narrative* Problem [...] as of this encounter (statuses as of 07/11/2023) [facility] Past [facility] Narrative* Problem [...] as of this encounter (statuses as of 07/19/2023) [facility] Diagnosis History of pulmonary embolus (PE) Personal history of pulmonary embolism Factor 5 Leiden mutation, heterozygous (HCC) Primary hypercoagulable state [facility] Diagnosis History of pulmonary embolus (PE) Personal history of pulmonary embolism Factor 5 Leiden mutation, heterozygous (HCC) Primary hypercoagulable state [facility] History of pulmonary embolus (PE) Personal history of pulmonary embolism Factor 5 Leiden mutation, heterozygous (HCC) Primary hypercoagulable state [facility] Diagnosis History of pulmonary embolus (PE) Personal history of pulmonary embolism Factor 5 Leiden mutation, heterozygous (HCC) Primary hypercoagulable state [facility] Diagnosis History of pulmonary embolus (PE) Personal history of pulmonary embolism Factor 5 Leiden mutation, heterozygous (HCC) Primary hypercoagulable state [facility] Diagnosis correction current use of anticoagulant- Primary Long-term (current) use of anticoagulants History of pulmonary embolus (PE) Personal history of pulmonary embolism Factor 5 Leiden mutation, heterozygous (HCC) Primary hypercoagulable state [facility] Diagnosis Hypothyroidism, unspecified type Chronic insomnia Insomnia, unspecified [facility] Diagnosis correction current use of anticoagulant Long-term (current) use of anticoagulants History of pulmonary embolus (PE) Personal history of pulmonary embolism Factor 5 Leiden mutation, heterozygous (HCC) Primary hypercoagulable state [facility] Diagnosis Pancreatic cyst Cyst and pseudocyst of pancreas [facility] Diagnosis correction current use of anticoagulant Long-term (current) use of anticoagulants History of pulmonary embolus (PE) Personal history of pulmonary embolism Factor 5 Leiden mutation, heterozygous (HCC) Primary hypercoagulable state documented in this encounter [facility] [place] [facility] note* Diagnosis IPMN (intraductal papillary mucinous neoplasm)- Primary Neoplasm of unspecified nature of digestive system Acute pancreatitis, unspecified complication status, unspecified pancreatitis type [facility] Diagnosis correction current use of anticoagulant Long-term (current) use of anticoagulants History of pulmonary embolus (PE) Personal history of pulmonary embolism Factor 5 Leiden mutation, heterozygous (HCC) Primary hypercoagulable state documented in this encounter [facility] [place] note* Diagnosis correction current use of anticoagulant Long-term (current) use of anticoagulants History of pulmonary embolus (PE) Personal history of pulmonary embolism Factor 5 Leiden mutation, heterozygous (HCC) Primary hypercoagulable state documented in this encounter [facility] [place] note* 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 Long-term (current) use of anticoagulants History of pulmonary embolus (PE) Personal history of pulmonary embolism Factor 5 Leiden mutation, heterozygous (HCC) Primary hypercoagulable state [facility] Diagnosis correction current use of anticoagulant Long-term (current) use of anticoagulants History of pulmonary embolus (PE) Personal history of pulmonary embolism Factor 5 Leiden mutation, heterozygous (HCC) Primary hypercoagulable state documented in this encounter [facility] [place] note* Diagnosis Factor 5 Leiden mutation, heterozygous (HCC)- Primary Primary hypercoagulable state History of pulmonary embolus (PE) Personal history of pulmonary embolism 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 Long-term (current) use of anticoagulants documented in this encounter [facility] [place] note* Diagnosis Onset Date Resolution Status Abnormal cardiac enzyme level acute Acute cystitis acute REGINE (acute kidney injury) ac [place] Hypothyroidism [facility] Work Phone: Evaluation note* Diagnosis IPMN (intraductal papillary mucinous neoplasm)- Primary Neoplasm of unspecified nature of digestive system Body mass index (BMI) 40.0-44.9, adult (HCC) documented in this encounter [facility] [place] note* Diagnosis Factor 5 Leiden mutation, heterozygous (HCC)- Primary Primary hypercoagulable state History of pulmonary embolus (PE) Personal history of pulmonary embolism correction current use of anticoagulant Long-term (current) use of anticoagulants [facility] Factor 5 Leiden mutation, heterozygous (HCC)- Primary Primary hypercoagulable state History of pulmonary embolus (PE) Personal history of pulmonary embolism correction current use of anticoagulant Long-term (current) use of anticoagulants [facility] Diagnosis IPMN (intraductal papillary mucinous neoplasm) Neoplasm of unspecified nature of digestive system [facility] Diagnosis Onset Date Resolution Status Abnormal cardiac enzyme level acute Acute cystitis acute REGINE (acute kidney injury) ac [place] Hypothyroidism chronic Osteoporosis chronic Nocturnal hypoxemia chronic Chronic fatigue chronic Gout chronic Hypothyroidism chronic Nocturnal hypoxemia chronic Osteoarthritis chronic Type 2 diabetes mellitus [facility] Work Phone: Evaluation note* Diagnosis Factor 5 Leiden mutation, heterozygous (HCC)- Primary Primary hypercoagulable state History of pulmonary embolus (PE) Personal history of pulmonary embolism 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 Long-term (current) use of anticoagulants [facility] Diagnosis Onset Date Resolution Status Osteoporosis chronic Nocturnal hypoxemia chronic Chronic fatigue chronic Gout chronic Hypothyroidism chronic Nocturnal hypoxemia chronic Osteoarthritis chronic Type 2 diabetes mellitus [facility] Work Phone: Evaluation note* Diagnosis Onset Date Resolution Status Osteoporosis chronic Nocturnal hypoxemia chronic Chronic fatigue chronic Gout chronic Hypothyroidism chronic Nocturnal hypoxemia chronic Osteoarthritis chronic Type 2 diabetes mellitus [facility] Hypoxic respiratory failure chronic Obesity chronic Stage 1 mild COPD by GOLD classification chronic Gout chronic High blood pressure chronic History of DVT (deep vein thrombosis) chronic Hypothyroidism chronic Hypoxic respiratory failure chronic Osteoporosis chronic Type 2 diabetes mellitus [facility] Work Phone: Evaluation note* Diagnosis Onset Date Resolution Status Hypoxic respiratory failure chronic Obesity chronic Stage 1 mild COPD by GOLD classification chronic Gout chronic High blood pressure chronic History of DVT (deep vein thrombosis) chronic Hypothyroidism chronic Hypoxic respiratory failure chronic Osteoporosis chronic Type 2 diabetes mellitus [facility] Work Phone: Evaluation note* Diagnosis Onset Date Resolution Status Gout chronic High blood pressure chronic History of DVT (deep vein thrombosis) chronic Hypothyroidism chronic Hypoxic respiratory failure chronic Osteoporosis chronic Type 2 diabetes mellitus [facility] Abdominal pain acute Bowel incontinence acute Hypothyroidism chronic Hypoxic respiratory failure chronic Osteoarthritis chronic Type 2 diabetes mellitus [facility] Work Phone: Evaluation note* Diagnosis Closed displaced comminuted fracture of shaft of left humerus with routine healing, subsequent encounter documented in this encounter [facility] for referral (narrative)* Diagnostic Procedure Only (Routine) - Closed Specialty Diagnoses / Procedures Referred By Contac t Referred To Contact MR IMAGING Diagnoses Pancreatic cyst Procedures MRI ABDOMEN WO/W IVCON MRI,ABDOMEN,W&WO Viviane Sarmiento MD [address] [employer] [address] [place] [id number] Mr Imaging Referral ID Status Reason Start Date Expiration Date V isits Requested Visits Authorized [id number] Closed Auto-Generate d Referral 10/05/2020 11/04/2021 1 1 [facility] for referral (narrative)No reason for referral information [facility] Work [facility]: Reason for visit Narrative* Diagnostic Procedure Only (Routine) - Closed Specialty Diagnoses / Procedures Referred By Contac t Referred To Contact MR IMAGING Diagnoses Pancreatic cyst Procedures MRI ABDOMEN WO/W IVCON MRI,ABDOMEN,W&WO Viviane Sarmiento MD 1 [employer] [address] [address] Mr Imaging Referral ID Status Reason Start Date Expiration Date V isits Requested Visits Authorized [id number] Closed Auto-Generate d Referral 10/05/2020 11/04/2021 1 1 [facility] Summary Purpose Family History No Family History Records Found Relationship Condition Age at Onset Recorded Date/T lana Not Specified History of blood clots Unknown Disorder of intestine Unknown Anxiety Unknown Arthritis Unknown Cardiac disease Unknown Kidney disorder Unknown Myocardial infarction Unknown Hypertension Unknown Disorder of thyroid Unknown brother Hemorrhagic disorder Unknown Malignant neoplasm Unknown Diabetes mellitus Unknown father Hemorrhagic disorder Unknown grandfather Diabetes mellitus Unknown sister Cerebrovascular accident (CVA) Unknown Advance Directives No Advanced Directives Records FoundDocuments on File Type Date Recorded 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 Advance Directive(s) 11/01/2020 9:52 AM [...] Documents on File Type Date Recorded 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 Advance Directive(s) 11/01/2020 9:52 AM [...] Documents on File Type Date Recorded 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 Yes September 03, 2020 9:47pm Reason for Referral Specialty Diagnoses / Procedures Referred By Nichol t Referred To Contact MR IMAGING Diagnoses IPMN (intraductal papillary mucinous neoplasm) Procedures MRI PANC/ZAYRA WO/W IVCON MRI ABDOMEN W/O & W/CONTRAST MATERIAL Viviane Mae MD [address] [address] Mr Imaging Referral ID Status Reason Start Date Expiration Date Visits Requested Visits Authorized [id number] Pending Review Auto-Generat ed Referral 12/06/2022 01/05/2023 1 1 Specialty Diagnoses / Procedures Referred By Contac t Referred To Contact MR IMAGING Diagnoses IPMN (intraductal papillary mucinous neoplasm) Procedures MRI 3D POST PROCESSING 3D RENDERING W/INTERP&POSTPROC DIFF WORK STATION Blas Barba MD [address] [place] [address] Mr Imaging [id number] Referral ID Status Reason Start Date Expiration Date Visits Requested Visits Authorized [id number] Pending Review Auto-Generat ed Referral 12/13/2022 01/12/2024 1 1 Specialty Diagnoses / Procedures Referred By Contac t Referred To Contact MR IMAGING Diagnoses IPMN (intraductal papillary mucinous neoplasm) Procedures MRI PANC/ZAYRA WO/W IVCON MRI ABDOMEN W/O & W/CONTRAST MATERIAL Blas Barba MD [address] [place] [address] [place] [address] Referral ID Status Reason Start Date Expiration Date Visits Requested Visits Authorized [id number] Pending Review Auto-Generat ed Referral 12/14/2023 01/12/2024 1 1 Specialty Diagnoses / Procedures [facility] To Contact [facility] Diagnoses IPMN (intraductal papillary mucinous neoplasm) Procedures MRI PANC/ZAYRA WO/W IVCON MRI ABDOMEN W/O & W/CONTRAST MATERIAL Viviane Mae MD [address] [address] [place] [address] Referral ID Status Reason Start Date Expiration Date V isits Requested Visits Authorized [id number] Closed Auto-Generate d Referral 12/06/2022 01/05/2023 1 1 Chief Complaint and Reason for Visit 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 Hypersomnia, unspecified prolia idopathic sleep 3 M FU G47.34 G47.34 G47.34 G47.34 SCREENING Reason for Visit Abnormal cardiac enz yme level Acute cystitis REGINE (acute kidney injury) Hypothyroidism Osteoporosis Nocturnal hypoxemia Chronic fatigue Gout Hypothyroidism Nocturnal hypoxemia Osteoarthritis Type 2 diabetes mellitus Chief Complaint Hypersomnia, unspeci fied prolia idopathic sleep 3 M FU G47.34 G47.34 G47.34 G47.34 SCREENING HX PE Reason for Visit Osteoporosis Nocturnal hypoxemia Chronic fatigue Gout Hypothyroidism Nocturnal hypoxemia Osteoarthritis Type 2 diabetes mellitus Chief Complaint prolia idopathic sleep 3 M FU G47.34 G47.34 G47.34 G47.34 SCREENING HX PE 3 M FU 6 M FU Reason for Visit Osteoporosis Nocturnal hypoxemia Chronic fatigue Gout Hypothyroidism Nocturnal hypoxemia Osteoarthritis Type 2 diabetes mellitus Hypoxic respiratory failure Obesity Stage 1 mild COPD by GOLD classification Gout High blood pressure History of DVT (deep vein thrombosis) Hypothyroidism Hypoxic respiratory failure Osteoporosis Type 2 diabetes mellitus Chief Complaint SCREENING HX PE 3 M FU 6 M FU OSTEOPOROSIS Reason for Visit Hypoxic respiratory failure Obesity Stage 1 mild COPD by GOLD classification Gout High blood pressure History of DVT (deep vein thrombosis) Hypothyroidism Hypoxic respiratory failure Osteoporosis Type 2 diabetes mellitus Chief Complaint HX PE 3 M FU 6 M FU OSTEOPOROSIS Reason for Visit Hypoxic respiratory failure Obesity Stage 1 mild COPD by GOLD classification Gout High blood pressure History of DVT (deep vein thrombosis) Hypothyroidism Hypoxic respiratory failure Osteoporosis Type 2 diabetes mellitus Chief Complaint 6 M FU OSTEOPOROSIS PROLIA SHOT 3 M FU RUQ PAIN Reason for Visit Gout High blood pressure History of DVT (deep vein thrombosis) Hypothyroidism Hypoxic respiratory failure Osteoporosis Type 2 diabetes mellitus Abdominal pain Bowel incontinence Hypothyroidism Hypoxic respiratory failure Osteoarthritis Type 2 diabetes mellitus Chief Complaint Admit Date 6 M FU May 07, 2024 9 :03am 3 M FU August 06, 2024 2:1 5pm Breast Cancer Screening August 21, 2024 1 1:43am Reason for Visit Admit Date History of DVT (deep vein thrombosis) Micky farris 2024 9:03am Hypertension May 07, 2024 9 :03am Hypothyroidism May 07, 2024 9 :03am Hypoxic respiratory failure April 9:03am Osteoporosis May 07, 2024 9 :03am Type 2 diabetes mellitus May 07, 2 025 9:03am Health care maintenance August 06, 2024 2:15pm History of DVT (deep vein thrombosis) Ap 2024 2:15pm Hypertension August 06, 2024 2:1 5pm Hypothyroidism August 06, 2024 2:1 5pm Osteoporosis August 06, 2024 2:1 5pm Type 2 diabetes mellitus August 06 2:15pm Chief Complaint Admit Date 3 M FU August 06, 2024 2:1 5pm Breast Cancer Screening August 21, 2024 1 1:43am 6 m fu September 17, 2024 10:2 7am Reason for Visit Admit Date Health care maintenance August 06, 2024 2:15pm History of DVT (deep vein thrombosis) Ap [facility] 2024 2:15pm Hypertension August 06, 2024 2:1 5pm Hypothyroidism August 06, 2024 2:1 5pm Osteoporosis August 06, 2024 2:1 5pm Type 2 diabetes mellitus August 06 2:15pm Hypoxic respiratory failure September 17, 2 025 10:27am Chief Complaint Admit Date 3 M FU August 06, 2024 2:1 5pm Breast Cancer Screening August 21, 2024 1 1:43am 6 m fu September 17, 2024 10:2 7am 3 M FU November 17, 2024 9: 50am Additional Source Comments INFORMATION SOURCE (unrecogn ized section and content) DATE CREATED AUTHOR 08/16/2018 [facility] DATE CREATED AUTHOR AUTHOR'S ORGANIZ ATION 08/10/2022 [facility] DATE CREATED AUTHOR AUTHOR'S ORGANIZ ATION 11/25/2023 [facility] DATE CREATED AUTHOR AUTHOR'S ORGANIZ ATION 12/30/2023 [facility] DATE CREATED AUTHOR AUTHOR'S ORGANIZ ATION 11/21/2024 [facility] Source Comments (unrecognize d section and content) In the event this informatio n is protected by the Federal Confidentiality of Alcohol and Drug Abuse Patient Records regulations: The Federal rules restrict any use of the information to criminally investigate or prosecute any alcohol or drug abuse patient.[facility] the event this information is protected by the Federal Confidentiality of Alcohol and Drug Abuse Patient Records regulations: The Federal rules restrict any use of the information to criminally investigate or prosecute any alcohol or drug abuse patient.[facility] HospitalIn the event this information is protected by the Federal Confidentiality of Alcohol and Drug Abuse Patient Records regulations: The Federal rules restrict any use of the information to criminally investigate or prosecute any alcohol or drug abuse patient.[facility] HospitalIn the event this information is protected by the Federal Confidentiality of Alcohol and Drug Abuse Patient Records regulations: The Federal rules restrict any use of the information to criminally investigate or prosecute any alcohol or drug abuse patient.[facility] HospitalIn the event this information is protected by the Federal Confidentiality of Alcohol and Drug Abuse Patient Records regulations: The Federal rules restrict any use of the information to criminally investigate or prosecute any alcohol or drug abuse patient.[facility] HospitalIn the event this information is protected by the Federal Confidentiality of Alcohol and Drug Abuse Patient Records regulations: The Federal rules restrict any use of the information to criminally investigate or prosecute any alcohol or drug abuse patient.[facility] HospitalIn the event this information is protected by the Federal Confidentiality of Alcohol and Drug Abuse Patient Records regulations: The Federal rules restrict any use of the information to criminally investigate or prosecute any alcohol or drug abuse patient.[facility] HospitalIn the event this information is protected by the Federal Confidentiality of Alcohol and Drug Abuse Patient Records regulations: The Federal rules restrict any use of the information to criminally investigate or prosecute any alcohol or drug abuse patient.[facility] HospitalIn the event this information is protected by the Federal Confidentiality of Alcohol and Drug Abuse Patient Records regulations: The Federal rules restrict any use of the information to criminally investigate or prosecute any alcohol or drug abuse patient.[facility] HospitalIn the event this information is protected by the Federal Confidentiality of Alcohol and Drug Abuse Patient Records regulations: The Federal rules restrict any use of the information to criminally investigate or prosecute any alcohol or drug abuse patient.[facility] HospitalIn the event this information is protected by the Federal Confidentiality of Alcohol and Drug Abuse Patient Records regulations: The Federal rules restrict any use of the information to criminally investigate or prosecute any alcohol or drug abuse patient.[facility] HospitalIn the event this information is protected by the Federal Confidentiality of Alcohol and Drug Abuse Patient Records regulations: The Federal rules restrict any use of the information to criminally investigate or prosecute any alcohol or drug abuse patient.[facility] HospitalIn the event this information is protected by the Federal Confidentiality of Alcohol and Drug Abuse Patient Records regulations: The Federal rules restrict any use of the information to criminally investigate or prosecute any alcohol or drug abuse patient.[facility] HospitalIn the event this information is protected by the Federal Confidentiality of Alcohol and Drug Abuse Patient Records regulations: The Federal rules restrict any use of the information to criminally investigate or prosecute any alcohol or drug abuse patient.[facility] HospitalIn the event this information is protected by the Federal Confidentiality of Alcohol and Drug Abuse Patient Records regulations: The Federal rules restrict any use of the information to criminally investigate or prosecute any alcohol or drug abuse patient.[facility] HospitalIn the event this information is protected by the Federal Confidentiality of Alcohol and Drug Abuse Patient Records regulations: The Federal rules restrict any use of the information to criminally investigate or prosecute any alcohol or drug abuse patient.[facility] HospitalIn the event this information is protected by the Federal Confidentiality of Alcohol and Drug Abuse Patient Records regulations: The Federal rules restrict any use of the information to criminally investigate or prosecute any alcohol or drug abuse patient.[facility] HospitalIn the event this information is protected by the Federal Confidentiality of Alcohol and Drug Abuse Patient Records regulations: The Federal rules restrict any use of the information to criminally investigate or prosecute any alcohol or drug abuse patient.[facility] HospitalIn the event this information is protected by the Federal Confidentiality of Alcohol and Drug Abuse Patient Records regulations: The Federal rules restrict any use of the information to criminally investigate or prosecute any alcohol or drug abuse patient.[facility] HospitalIn the event this information is protected by the Federal Confidentiality of Alcohol and Drug Abuse Patient Records regulations: The Federal rules restrict any use of the information to criminally investigate or prosecute any alcohol or drug abuse patient.[facility] HospitalIn the event this information is protected by the Federal Confidentiality of Alcohol and Drug Abuse Patient Records regulations: The Federal rules restrict any use of the information to criminally investigate or prosecute any alcohol or drug abuse patient.[facility] HospitalIn the event this information is protected by the Federal Confidentiality of Alcohol and Drug Abuse Patient Records regulations: The Federal rules restrict any use of the information to criminally investigate or prosecute any alcohol or drug abuse patient.[facility] HospitalIn the event this information is protected by the Federal Confidentiality of Alcohol and Drug Abuse Patient Records regulations: The Federal rules restrict any use of the information to criminally investigate or prosecute any alcohol or drug abuse patient.[facility] HospitalIn the event this information is protected by the Federal Confidentiality of Alcohol and Drug Abuse Patient Records regulations: The Federal rules restrict any use of the information to criminally investigate or prosecute any alcohol or drug abuse patient.[facility] HospitalIn the event this information is protected by the Federal Confidentiality of Alcohol and Drug Abuse Patient Records regulations: The Federal rules restrict any use of the information to criminally investigate or prosecute any alcohol or drug abuse patient.[facility] HospitalIn the event this information is protected by the Federal Confidentiality of Alcohol and Drug Abuse Patient Records regulations: The Federal rules restrict any use of the information to criminally investigate or prosecute any alcohol or drug abuse patient.[facility] HospitalIn the event this information is protected by the Federal Confidentiality of Alcohol and Drug Abuse Patient Records regulations: The Federal rules restrict any use of the information to criminally investigate or prosecute any alcohol or drug abuse patient.[facility] HospitalIn the event this information is protected by the Federal Confidentiality of Alcohol and Drug Abuse Patient Records regulations: The Federal rules restrict any use of the information to criminally investigate or prosecute any alcohol or drug abuse patient.[facility] HospitalIn the event this information is protected by the Federal Confidentiality of Alcohol and Drug Abuse Patient Records regulations: The Federal rules restrict any use of the information to criminally investigate or prosecute any alcohol or drug abuse patient.[facility] HospitalIn the event this information is protected by the Federal Confidentiality of Alcohol and Drug Abuse Patient Records regulations: The Federal rules restrict any use of the information to criminally investigate or prosecute any alcohol or drug abuse patient.[facility] HospitalIn the event this information is protected by the Federal Confidentiality of Alcohol and Drug Abuse Patient Records regulations: The Federal rules restrict any use of the information to criminally investigate or prosecute any alcohol or drug abuse patient.[facility] HospitalIn the event this information is protected by the Federal Confidentiality of Alcohol and Drug Abuse Patient Records regulations: The Federal rules restrict any use of the information to criminally investigate or prosecute any alcohol or drug abuse patient.[facility] HospitalIn the event this information is protected by the Federal Confidentiality of Alcohol and Drug Abuse Patient Records regulations: The Federal rules restrict any use of the information to criminally investigate or prosecute any alcohol or drug abuse patient.[facility] HospitalIn the event this information is protected by the Federal Confidentiality of Alcohol and Drug Abuse Patient Records regulations: The Federal rules restrict any use of the information to criminally investigate or prosecute any alcohol or drug abuse patient.[facility] HospitalIn the event this information is protected by the Federal Confidentiality of Alcohol and Drug Abuse Patient Records regulations: The Federal rules restrict any use of the information to criminally investigate or prosecute any alcohol or drug abuse patient.[facility] HospitalIn the event this information is protected by the Federal Confidentiality of Alcohol and Drug Abuse Patient Records regulations: The Federal rules restrict any use of the information to criminally investigate or prosecute any alcohol or drug abuse patient.[facility] HospitalIn the event this information is protected by the Federal Confidentiality of Alcohol and Drug Abuse Patient Records regulations: The Federal rules restrict any use of the information to criminally investigate or prosecute any alcohol or drug abuse patient.[facility] HospitalIn the event this information is protected by the Federal Confidentiality of Alcohol and Drug Abuse Patient Records regulations: The Federal rules restrict any use of the information to criminally investigate or prosecute any alcohol or drug abuse patient.[facility] HospitalIn the event this information is protected by the Federal Confidentiality of Alcohol and Drug Abuse Patient Records regulations: The Federal rules restrict any use of the information to criminally investigate or prosecute any alcohol or drug abuse patient.[facility] HospitalIn the event this information is protected by the Federal Confidentiality of Alcohol and Drug Abuse Patient Records regulations: The Federal rules restrict any use of the information to criminally investigate or prosecute any alcohol or drug abuse patient.[facility] HospitalIn the event this information is protected by the Federal Confidentiality of Alcohol and Drug Abuse Patient Records regulations: The Federal rules restrict any use of the information to criminally investigate or prosecute any alcohol or drug abuse patient.[facility] HospitalIn the event this information is protected by the Federal Confidentiality of Alcohol and Drug Abuse Patient Records regulations: The Federal rules restrict any use of the information to criminally investigate or prosecute any alcohol or drug abuse patient.[facility] HospitalIn the event this information is protected by the Federal Confidentiality of Alcohol and Drug Abuse Patient Records regulations: The Federal rules restrict any use of the information to criminally investigate or prosecute any alcohol or drug abuse patient.[facility] HospitalIn the event this information is protected by the Federal Confidentiality of Alcohol and Drug Abuse Patient Records regulations: The Federal rules restrict any use of the information to criminally investigate or prosecute any alcohol or drug abuse patient.[facility] HospitalIn the event this information is protected by the Federal Confidentiality of Alcohol and Drug Abuse Patient Records regulations: The Federal rules restrict any use of the information to criminally investigate or prosecute any alcohol or drug abuse patient.[facility] HospitalIn the event this information is protected by the Federal Confidentiality of Alcohol and Drug Abuse Patient Records regulations: The Federal rules restrict any use of the information to criminally investigate or prosecute any alcohol or drug abuse patient.[facility] HospitalIn the event this information is protected by the Federal Confidentiality of Alcohol and Drug Abuse Patient Records regulations: The Federal rules restrict any use of the information to criminally investigate or prosecute any alcohol or drug abuse patient.[facility] HospitalIn the event this information is protected by the Federal Confidentiality of Alcohol and Drug Abuse Patient Records regulations: The Federal rules restrict any use of the information to criminally investigate or prosecute any alcohol or drug abuse patient.[facility] HospitalIn the event this information is protected by the Federal Confidentiality of Alcohol and Drug Abuse Patient Records regulations: The Federal rules restrict any use of the information to criminally investigate or prosecute any alcohol or drug abuse patient.[facility] HospitalIn the event this information is protected by the Federal Confidentiality of Alcohol and Drug Abuse Patient Records regulations: The Federal rules restrict any use of the information to criminally investigate or prosecute any alcohol or drug abuse patient.[facility] HospitalIn the event this information is protected by the Federal Confidentiality of Alcohol and Drug Abuse Patient Records regulations: The Federal rules restrict any use of the information to criminally investigate or prosecute any alcohol or drug abuse patient.[facility] HospitalIn the event this information is protected by the Federal Confidentiality of Alcohol and Drug Abuse Patient Records regulations: The Federal rules restrict any use of the information to criminally investigate or prosecute any alcohol or drug abuse patient.[facility] HospitalIn the event this information is protected by the Federal Confidentiality of Alcohol and Drug Abuse Patient Records regulations: The Federal rules restrict any use of the information to criminally investigate or prosecute any alcohol or drug abuse patient.[facility] HospitalIn the event this information is protected by the Federal Confidentiality of Alcohol and Drug Abuse Patient Records regulations: The Federal rules restrict any use of the information to criminally investigate or prosecute any alcohol or drug abuse patient.[facility] HospitalIn the event this information is protected by the Federal Confidentiality of Alcohol and Drug Abuse Patient Records regulations: The Federal rules restrict any use of the information to criminally investigate or prosecute any alcohol or drug abuse patient.[facility] HospitalIn the event this information is protected by the Federal Confidentiality of Alcohol and Drug Abuse Patient Records regulations: The Federal rules restrict any use of the information to criminally investigate or prosecute any alcohol or drug abuse patient.[facility] HospitalIn the event this information is protected by the Federal Confidentiality of Alcohol and Drug Abuse Patient Records regulations: The Federal rules restrict any use of the information to criminally investigate or prosecute any alcohol or drug abuse patient.[facility] HospitalIn the event this information is protected by the Federal Confidentiality of Alcohol and Drug Abuse Patient Records regulations: The Federal rules restrict any use of the information to criminally investigate or prosecute any alcohol or drug abuse patient.[facility] HospitalIn the event this information is protected by the Federal Confidentiality of Alcohol and Drug Abuse Patient Records regulations: The Federal rules restrict any use of the information to criminally investigate or prosecute any alcohol or drug abuse patient.[facility] HospitalIn the event this information is protected by the Federal Confidentiality of Alcohol and Drug Abuse Patient Records regulations: The Federal rules restrict any use of the information to criminally investigate or prosecute any alcohol or drug abuse patient.[facility] HospitalIn the event this information is protected by the Federal Confidentiality of Alcohol and Drug Abuse Patient Records regulations: The Federal rules restrict any use of the information to criminally investigate or prosecute any alcohol or drug abuse patient.[facility] HospitalIn the event this information is protected by the Federal Confidentiality of Alcohol and Drug Abuse Patient Records regulations: The Federal rules restrict any use of the information to criminally investigate or prosecute any alcohol or drug abuse patient.[facility] HospitalIn the event this information is protected by the Federal Confidentiality of Alcohol and Drug Abuse Patient Records regulations: The Federal rules restrict any use of the information to criminally investigate or prosecute any alcohol or drug abuse patient.[facility] HospitalIn the event this information is protected by the Federal Confidentiality of Alcohol and Drug Abuse Patient Records regulations: The Federal rules restrict any use of the information to criminally investigate or prosecute any alcohol or drug abuse patient.[facility] HospitalIn the event this information is protected by the Federal Confidentiality of Alcohol and Drug Abuse Patient Records regulations: The Federal rules restrict any use of the information to criminally investigate or prosecute any alcohol or drug abuse patient.[facility] HospitalIn the event this information is protected by the Federal Confidentiality of Alcohol and Drug Abuse Patient Records regulations: The Federal rules restrict any use of the information to criminally investigate or prosecute any alcohol or drug abuse patient.[facility] HospitalIn the event this information is protected by the Federal Confidentiality of Alcohol and Drug Abuse Patient Records regulations: The Federal rules restrict any use of the information to criminally investigate or prosecute any alcohol or drug abuse patient.[facility] HospitalIn the event this information is protected by the Federal Confidentiality of Alcohol and Drug Abuse Patient Records regulations: The Federal rules restrict any use of the information to criminally investigate or prosecute any alcohol or drug abuse patient.[facility] Reason for Visit (unrecogniz ed section [...] & W/CONTRAST MATERIAL Viviane Mae MD [address] [address] [place] [address] Referral ID Status Reason Start Date Expiration Date V isits Requested Visits Authorized [id number] Closed Auto-Generate d Referral 12/06/2022 01/05/2023 1 1 Reason Onset Date Comments Population Health Navigation Outreach 02/12/2023 HCC Reason Onset Date Comments Anticoagulation Telephone Fu 02/19/2023 Stephany e INR Result Reason Onset Date Comments Anticoagulation Telephone Fu 03/08/2023 Stephany e INR Reason Onset Date Comments Anticoagulation Telephone Fu 03/22/2023 Stephany e INR Reason Comments Refill Request Reason Onset Date Comments Anticoagulation Telephone Fu 05/21/2023 Stephany e INR Result Reason Onset Date Comments Anticoagulation Telephone Fu 06/11/2023 Stephany e INR Result Reason Onset Date Comments Anticoagulation Telephone Fu 07/19/2023 Stephany e INR Reason Comments PAC TRANSFER OF CARE Reason Comments Radiology XR Specialty Diagnoses / Procedures Referred By Nichol bro Referred To Contact Radiology / [facility] Diagnoses Main Lobby Closed displaced comminuted fracture of shaft of left humerus with routine heali... Procedures XR GENERAL 7 Tanner Case MD [address] [place] [address] Radio General Replaced By [facility] [address] [place] [address] Referral ID Status Reason Start Date Expiration Date Visits Re quested Visits Authorized [id number] Closed 02/04/2020 04/08/2020 1 1 Care Teams (unrecognized sec tion and content) Fitter'S Assistant Relationship Specialty Start Date End Date Bg Beverly MD [address] [place] [address] PCP - General Family Practice 09/23/20 13, Pharmacist [id number] [place] [address] Pharmacist Pharmacy 11/13/19 Fitter'S Assistant Relationship Specialty Start Date End Date Bg Beverly MD [address] [place] [address] PCP - General Family Practice 09/23/20 13, Pharmacist [id number] [place] [address] Pharmacist Pharmacy 11/13/19 Fitter'S Assistant Relationship Specialty Start Date End Date Bg Beverly MD [address] [place] [address] PCP - General Family Practice 09/23/20 13, Pharmacist [id number] [place] [address] Pharmacist Pharmacy 11/13/19 Fitter'S Assistant Relationship Specialty Start Date End Date Bg Beverly MD [address] [place] [address] PCP - General Family Practice 09/23/20 13, Pharmacist [phone] [place] [address] Pharmacist Pharmacy 11/13/19 Fitter'S Assistant Relationship Specialty Start Date End Date Bg Beverly MD [address] [place] [address] PCP - General Family Practice 09/23/20 13, Pharmacist [phone] [place] [address] Pharmacist Pharmacy 11/13/19 Fitter'S Assistant Relationship Specialty Start Date End Date Bg Beverly MD [address] [facility] [place] [address] PCP - General Family Practice 09/23/20 13, Pharmacist [id number] [place] [address] Pharmacist Pharmacy 11/13/19 Fitter'S Assistant Relationship Specialty Start Date End Date Bg Beverly MD [address] [facility] [place] [address] PCP - General Family Practice 09/23/20 13, Pharmacist [id number] [place] [address] Pharmacist Pharmacy 11/13/19 Fitter'S Assistant Relationship Specialty Start Date End Date Bg Beverly MD [address] [place] [address] PCP - General Family Practice 09/23/20 13, Pharmacist [id number] [place] [address] Pharmacist Pharmacy 11/13/19 Fitter'S Assistant Relationship Specialty Start Date End Date Bg Beverly MD [address] [place] [address] PCP - General Family Practice 09/23/20 13, Pharmacist [id number] [place] [address] Pharmacist Pharmacy 11/13/19 Fitter'S Assistant Relationship Specialty Start Date End Date Bg Beverly MD [address] [place] [address] PCP - General Family Practice 09/23/20 13, Pharmacist [phone] [place] [address] Pharmacist Pharmacy 11/13/19 Fitter'S Assistant Relationship Specialty Start Date End Date Bg Beverly MD [address] [place] [address] PCP - General Family Medicine 09/23/20 13, Pharmacist [id number] [facility] [place] [address] Pharmacist Pharmacy 11/13/19 Fitter'S Assistant Relationship Specialty Start Date End Date Bg Beverly MD [address] [facility] [place] [address] PCP - General Family Medicine 09/23/20 13, Pharmacist [phone] [place] [address] Pharmacist Pharmacy 11/13/19 Fitter'S Assistant Relationship Specialty Start Date End Date Bg Beverly MD [address] [place] [address] PCP - General Family Medicine 09/23/20 13, Pharmacist [phone] [place] [address] Pharmacist Pharmacy 11/13/19 Fitter'S Assistant Relationship Specialty Start Date End Date Bg Beverly MD [address] [place] [address] PCP - General Family Medicine 09/23/20 13, Pharmacist [phone] [place] [address] Pharmacist Pharmacy 11/13/19 Fitter'S Assistant Relationship Specialty Start Date End Date Bg Beveryl MD [address] [place] [address] PCP - General Family Medicine 09/23/20 13, Pharmacist [phone] [place] [address] Pharmacist Pharmacy 11/13/19 Fitter'S Assistant Relationship Specialty Start Date End Date Bg Beverly MD [address] [place] [address] PCP - General Family Medicine 09/23/20 13, Pharmacist [phone] [place] [address] Pharmacist Pharmacy 11/13/19 Team Status: Active Member Role Status Dates Dr. Anastacia Viera III, MD Family Provider Active Dr. Yanique Espinosa MD Primary Care Provider Active Team Status: Inactive Member Role Status Dates Dr. Yanique Espinosa MD Attending Provider Active Team Status: Active Member Role Status Dates Dr. Yanique Espinosa MD Primary Care P rovider, Attending Provider, Referring Provider Active Team Status: Inactive Member Role Status Dates Dr. Yanique Espinosa MD Primary Care P rovider, Attending Provider, Referring Provider Active Fitter'S Assistant Relationship Specialty Start Date End Date Bg Beverly MD [address] [place] [address] PCP - General Family Medicine 09/23/20 13, Pharmacist [id number] [place] [address] Pharmacist Pharmacy 11/13/19 Fitter'S Assistant Relationship Specialty Start Date End Date Bg Beverly MD [address] [place] [address] PCP - General Family Medicine 09/23/20 13, Pharmacist [id number] [place] [address] Pharmacist Pharmacy 11/13/19 Fitter'S Assistant Relationship Specialty Start Date End Date Bg Beverly MD [address] [place] [address] PCP - General Family Medicine 09/23/20 13, Pharmacist [id number] [place] [address] Pharmacist Pharmacy 11/13/19 Fitter'S Assistant Relationship Specialty Start Date End Date Bg Beverly MD [address] [place] [address] PCP - General Family Medicine 09/23/20 13, Pharmacist [id number] [place] [address] Pharmacist Pharmacy 11/13/19 Fitter'S Assistant Relationship Specialty Start Date End Date Bg Beverly MD [address] [place] [address] PCP - General Family Medicine 09/23/20 13, Pharmacist [phone] [place] [address] Pharmacist Pharmacy 11/13/19 Fitter'S Assistant Relationship Specialty Start Date End Date Bg Beverly MD [address] [place] [address] PCP - General Family Medicine 09/23/20 13, Pharmacist [id number] [place], [place] [id number] Pharmacist Pharmacy 11/13/19 Fitter'S Assistant Relationship Specialty Start Date End Date Bg Beverly MD [address] [place] [address] PCP - General Family Medicine 09/23/20 13, Pharmacist [phone] [place] [address] Pharmacist Pharmacy 11/13/19 Team Status: Inactive Member Role Status Dates Dr. Sabas Beverly MD Referring Provider Active Dr. Yanique Espinosa MD Primary Care Provider, Atten ding Provider Active Team Status: Inactive Member Role Status Dates Dr. Yanique Espinosa MD Primary Care Provider, Refer ring Provider Active Dr. Raghavendra Carrasco MD Attending Provider Active Team Status: Active Member Role Status Dates Dr. Yanique Espinosa MD Primary Care Provider Active Dr. Raghavendra Carrasco MD Referring Provider, Other Provid er Active Dr. Harley Urbina DO Attending Provider Active Team Status: Active Member Role Status Dates Dr. Yanique Espinosa MD Primary Care Provider Active Dr. Raghavendra Carrasco MD Attending Provider, Referring Pr ovider Active Team Status: Inactive Member Role Status Dates Dr. Yanique Espinosa MD Primary Care Provider Active Dr. Raghavendra Carrasco MD Attending Provider, Referring Pr ovider Active Fitter'S Assistant Relationship Specialty Start Date End Date Yanique Espinosa MD [address] [facility] [address] [place] [address] PCP - General Internal Medicine 02/12/23 13, Pharmacist [phone] [facility] [place] [address] Pharmacist Pharmacy 11/13/19 Fitter'S Assistant Relationship Specialty Start Date End Date Yanique Espinosa MD [address] [facility] [address] [place] [address] PCP - General Internal Medicine 02/12/23 13, Pharmacist [phone] [facility] [place] [address] Pharmacist Pharmacy 11/13/19 Team Status: Active Member Role Status Dates Dr. Yanique Espinosa MD Primary Care Provider Active Dr. José Luis Vaca MD Attending Provider Active Fitter'S Assistant Relationship Specialty Start Date End Date Yanique Espinosa [facility] [address] [facility] [address] [place] [address] PCP - General Internal Medicine 02/12/23 13, Pharmacist [phone] [place] [address] Pharmacist Pharmacy 11/13/19 Fitter'S Assistant Relationship Specialty Start Date End Date Yanique Espinosa MD [address] [facility] [address] [place] [address] PCP - General Internal Medicine 02/12/23 13, Pharmacist [phone] [place] [address] Pharmacist Pharmacy 11/13/19 Team Status: Inactive Member Role Status Dates Dr. Yanique Espinosa MD Primary Care Provider, Refer ring Provider Active Glenys Kulkarni INFORMATION SYSTEMS AUDIT MANAGER, INFORMATION SYSTEMS AUDIT MANAGER-C Attending Provider Active Fitter'S Assistant Relationship Specialty Start Date End Date Yanique Espinosa MD [address] [facility] [address] [place] [address] PCP - General Internal Medicine 02/12/23 13, Pharmacist [phone] [place] [address] Pharmacist Pharmacy 11/13/19 Team Status: Inactive Member Role Status Dates Dr. Yanique Espinosa MD Primary Care Provider, Atten ding Provider Active Fitter'S Assistant Relationship Specialty Start Date End Date Yanique Espinosa MD [address] [facility] [address] [place] [address] PCP - General Internal Medicine 02/12/23 13, Pharmacist [phone] [place] [address] Pharmacist Pharmacy 11/13/19 Fitter'S Assistant Relationship Specialty Start Date End Date Yanique Espinosa MD [address] [facility] [address] [place] [address] PCP - General Internal Medicine 02/12/23 Fitter'S Assistant Relationship Specialty Start Date End Date Yanique Espinosa MD [address] [place] [address] PCP - General Internal Medicine 02/12/23 Fitter'S Assistant Relationship Specialty Start Date End Date Anastacia Viera III, MD PCP - General Family Medicine 02/01/15 09/22/20 13, Pharmacist [phone] [place] [address] Pharmacist Pharmacy 11/13/19 11/22/23 Team Status: Active Member Role Status Dates Dr. Yanique Espinosa MD Primary Care Provider Active Team Status: Inactive Member Role Status Dates Dr. Yanique Espinosa MD Primary Care Provider Active Start: May 07, 2024 End: May 07, 2024 Dr. Yanique Espinosa MD Attending Provider Active Start: May 07, 2024 End: May 07, 2024 Dr. Yanique Espinosa MD Referring Provider Active Start: May 07, 2024 End: May 07, 2024 Team Status: Inactive Member Role Status Dates Dr. Yanique Espinosa MD Primary Care Provider Active Start: May 20, 2024 End: May 20, 2024 Dr. Rajani aCzares DO Attending Provider Active Start: May 20, 2024 End: May 20, 2024 Team Status: Inactive Member Role Status Dates Dr. Yanique Espinosa MD Primary Care Provider Active Start: August 06, 2024 End: August 06, 2024 Dr. Yanique Espinosa MD Attending Provider Active Start: August 06, 2024 End: August 06, 2024 Dr. Yanique Espinosa MD Referring Provider Active Start: August 06, 2024 End: August 06, 2024 Team Status: Inactive Member Role Status Dates Dr. Yanique Espinosa MD Primary Care Provider Active Start: August 21, 2024 End: August 21, 2024 Dr. Yanique Espinosa MD Attending Provider Active Start: August 21, 2024 End: August 21, 2024 Dr. Yanique Espinosa MD Referring Provider Active Start: August 21, 2024 End: August 21, 2024 Team Status: Inactive Member Role Status Dates Dr. Yanique Espinosa MD Primary Care Provider Active Start: September 17, 2024 End: September 17, 2024 Dr. Yanique Espinosa MD Referring Provider Active Start: September 17, 2024 End: September 17, 2024 Dr. Harley Urbina DO Attending Provider Active S tart: September 17, 2024 End: September 17, 2024 Team Status: Active Member Role/Relationship Status Dates Dr. Yanique Espinosa MD Primary Care Provider Active Team Status: Inactive Member Role/Relationship Status Dates Dr. Yanique Espinosa MD Primary Care Provider Active Start: August 06, 2024 End: August 06, 2024 Dr. Yanique Espinosa MD Attending Provider Active Start: August 06, 2024 End: August 06, 2024 Dr. Yanique Espinosa MD Referring Provider Active Start: August 06, 2024 End: August 06, 2024 Team Status: Inactive Member Role/Relationship Status Dates Dr. Yanique Espinosa MD Primary Care Provider Active Start: August 21, 2024 End: August 21, 2024 Dr. Yanique Espinosa MD Attending Provider Active Start: August 21, 2024 End: August 21, 2024 Dr. Yanique Espinosa MD Referring Provider Active Start: August 21, 2024 End: August 21, 2024 Team Status: Inactive Member Role/Relationship Status Dates Dr. Yanique Espinosa MD Primary Care Provider Active Start: September 17, 2024 End: September 17, 2024 Dr. Yanique Espinosa MD Referring Provider Active Start: September 17, 2024 End: September 17, 2024 Dr. Harley Urbina DO Attending Provider Active S tart: September 17, 2024 End: September 17, 2024 Team Status: Inactive Member Role/Relationship Status Dates Dr. Yanique Espinosa MD Primary Care Provider Active Start: November 17, 2024 End: November 17, 2024 Dr. Yanique Espinosa MD Attending Provider Active Start: November 17, 2024 End: November 17, 2024 Dr. Yanique Espinosa MD Referring Provider Active Start: November 17, 2024 End: November 17, 2024 Goals (unrecognized section and content) Goals may be documented in a n alternate sectionGoals may be documented in an alternate sectionGoals may be documented in an alternate sectionGoals may be documented in an alternate sectionGoals may be documented in an alternate sectionGoals may be documented in an alternate sectionGoals may be documented in an alternate sectionGoals may be documented in an alternate sectionGoals may be documented in an alternate sectionGoals may be documented in an alternate sectionGoals may be documented in an alternate sectionGoals may be documented in an alternate sectionGoals may be documented in an alternate section FOR RECORDS PERTAINING TO PATIENTS WHO ARE [...] BE BASED ON THE PRIMARY CLINICAL RECORDS. [facility] [employer] [facility] provides no warranty or guarantee of the accuracy or completeness of information in this document.
== END | disposition home or self-care (01) ==
LOC: MTLAB 14:16
PROVIDERS: PCP Internal Medicine; Referring Provider Internal Medicine; Visit Provider Internal Medicine
DX: E03.9 Hypothyroidism, unspecified (principal); I10 Essential (primary) hypertension
CPT/HCPCS: 36415; 80053; 84443; 85025

== ENCOUNTER → 2024-12-26 | Outpatient (CLI) | payer MEDICARE, SELFPAY ==
[2024-12-26 13:15] LABS: AST(SGOT) 22 U/L (<=31); Alanine Aminotransfer ALT/SGPT 20 U/L (<=34); Albumin, Serum 3.8 g/dL (3.4-4.8); Alkaline Phosphatase 63 U/L (35-104); Anion Gap 8 (5-15); BUN 27 mg/dL (4-19); BUN/Creat Ratio 31.3 RATIO (10-20); Calcium,Total 10.0 mg/dL (7.6-11.0); Carbon Dioxide 28.8 mmol/L (21.0-32.0); Chloride 104 mmol/L (98-108); Cholesterol 150 mg/dL (<=200); Globulin 2.4 g/dL (2.2-4.2); Glucose 93 mg/dL (70-99); Low Density Lipoprotein Calc. 82 mg/dL; Potassium 5.4 mmol/L (3.3-5.1); Triglycerides 96 mg/dL; Very Low Density Lipoprotein 19 mg/dL (5-40); cholesterol:hdl ratio screen 3.09
== END | disposition home or self-care (01) ==
LOC: MTLAB 09:38
PROVIDERS: PCP Internal Medicine; Referring Provider Internal Medicine; Visit Provider Internal Medicine
DX: E78.5 Hyperlipidemia, unspecified (principal); E03.9 Hypothyroidism, unspecified
CPT/HCPCS: 36415; 80053; 80061; 84443

== ENCOUNTER → 2025-02-02 | Outpatient (CLI) | payer MEDICARE, SELFPAY ==
[2025-02-02 15:49] LABS: Anion Gap 10 (5-15); BUN 25 mg/dL (4-19); BUN/Creat Ratio 33.3 RATIO (10-20); Calcium,Total 9.9 mg/dL (7.6-11.0); Carbon Dioxide 29.1 mmol/L (21.0-32.0); Chloride 102 mmol/L (98-108); Glucose 105 mg/dL (70-99); Potassium 4.6 mmol/L (3.3-5.1)
== END | disposition home or self-care (01) ==
LOC: MTLAB 13:18
PROVIDERS: PCP Internal Medicine; Referring Provider Internal Medicine; Visit Provider Internal Medicine
DX: E87.5 Hyperkalemia (principal); E03.9 Hypothyroidism, unspecified
CPT/HCPCS: 36415; 80048; 84439; 84443

== ENCOUNTER → 2025-02-25 | Outpatient (CLI) | payer MEDICARE, SELFPAY ==
--- OUTSIDE RECORDS SUMMARY | 2025-02-25 06:08 | XMS RPT_ITS | CCD ---
Author Organization [facility] CliniSyvt Care Team Providers Care Pipe Smoking Machine Offbearer Name Role Phone VIVIANE MAE S Attending Unavailable IMCA Referring Unavailable CEBUL, ANASTACIA Primary Care Unavailable ALIOSBALDOAMAN S Referring Unavailable CEBUL, ANASTACIA Primary Care Unavailable ALI, OSBALDOAMAN S Attending Unavailable IMCA Referring Unavailable CEBUL, [...] Unavailable Dr. Yanique Espinosa Attending Provider [phone] Dr. Yanique Espinosa Attending Provider [phone] Dr. Yanique Espinosa Primary Care Provider Dr. Yanique Espinosa Referring Provider Dr. Raghavendra Carrasco Attending Provider [phone] Dr. Sabas Beverly Referring Provider Dr. Raghavendra Carrasco Referring Provider Dr. Raghavendra Carrasco Other Provider Dr. Harley Urbina Attending Provider Yanique Espinosa MD Primary Care Provider [phone] Dr. Yanique Espinosa Attending Provider [phone] Dr. José Luis Vaca Attending Provider [phone] Cayla DATA SOLUTIONS ARCHITECT, DATA SOLUTIONS ARCHITECT-C Glenys Attending Provider Dr. Yanique Espinosa Primary Care Provider [phone] Dr. Yanique Espinosa Referring Provider [phone] Dr. Sabas Beverly Referring Provider Dr. Yanique Espinosa Attending Provider [phone] Dr. Yanique Espinosa Primary Care Provider [phone] Dr. José Luis Vaca Attending Provider [phone] Dr. Yanique Espinosa Referring Provider [phone] Cayla DATA SOLUTIONS ARCHITECT, DATA SOLUTIONS ARCHITECT-C Glenys Attending Provider Dr. Sabas Beverly Referring Provider Dr. Yanique Espinosa Attending Provider [phone] Yanique Espinosa MD Primary Care Provider [phone] Dr. Yanique Espinosa Primary Care Provider [phone]) Dr. Yanique Espinosa Referring Provider [phone] VIVIANE MAE Referring Unavailable BG BEVERLY Primary Care Unavailab arlyn Viera III, MD, Anastacia Guillen Primary Care Provider Mindy vailable 13, Pharmacist Unavailable Francisca GONZALEZ, Dr. Chanel Primary Care Provider Dr. Yanique Espinosa MD Attending Provider [phone]) Dr. Yanique Espinosa MD Referring Provider [phone] 0) Dr. Rajani Cazares DO Attending Provider Francisca GONZALEZ, Dr. Chanel Primary Care Provider Francisca GONZALEZ, Dr. Chanel Attending Provider [phone]) Francisca GONZALEZ, Dr. Chanel Referring Provider 1(33 0) Dr. Harley Urbina DO Attending Provider Francisca GONZALEZ, Dr. Chanel Primary Care Provider Francisca GONZALEZ, Dr. Chanel Primary Care Provider Francisca GONZALEZ, Dr. Chanel Attending Provider [phone] 0) Francisca GONZALEZ, Dr. Chanel Referring Provider 1(33 0) Francisca GONZALEZ, Dr. Chanel Primary Care Physician Francisca GONZALEZ, Dr. Chanel Referring Provider [phone] 0) Dr. Harley Urbina DO Attending Physician Francisca GONZALEZ, Dr. Chanel Attending Physician [phone] Agustin GONZALEZ, Dr. Barker Attending Physician Oleghe, Efewongbe Referring Unavailable Oleghe, Efewongbe Primary Care Unavailable Oleghe, Efewongbe Attending Unavailable Oleghe, Efewongbe Referring Unavailable Oleghe, Efewongbe Primary Care Unavailable Oleghe, Efewongbe Attending Unavailable Oleghe, Efewongbe Primary Care Unavailable Oleghe, Efewongbe Referring Unavailable Oleghe, Efewongbe Attending Unavailable Rajani Cazares Attending Unavailable Oleghe, Efewongbe Primary Care Unavailable Oleghe, Efewongbe Attending Unavailable Oleghe, Efewongbe Referring Unavailable Oleghe, Efewongbe Primary Care Unavailable Oleghe, Efewongbe Attending Unavailable Oleghe, Efewongbe Primary Care Unavailable Oleghe, Efewongbe Referring Unavailable Oleghe, Efewongbe Primary Care Unavailable Harley Urbina Attending Unavailable Oleghe, Efewongbe Referring Unavailable Oleghe, Efewongbe Attending Unavailable Oleghe, Efewongbe Primary Care Unavailable Oleghe, Efewongbe Referring Unavailable Oleghe, Efewongbe Referring Unavailable Oleghe, Efewongbe Primary Care Unavailable Oleghe, Efewongbe Attending Unavailable Glenys Kulkarni NP Attending Unavailable Oleghe, Efewongbe Referring Unavailable Oleghe, Efewongbe Primary Care Unavailable Oleghe, Efewongbe Primary Care Unavailable Rajani Cazares Attending Unavailable Oleghe, Efewongbe Attending Unavailable Oleghe, Efewongbe Primary Care Unavailable Oleghe, Efewongbe Referring Unavailable Oleghe, Efewongbe Referring Unavailable Oleghe, Efewongbe Primary Care Unavailable Oleghe, Efewongbe Attending Unavailable Oleghe, Efewongbe Referring Unavailable Oleghe, Efewongbe Primary Care Unavailable Oleghe, Efewongbe Attending Unavailable Allergies Allergy Classification Reported Allergen(s) Allergy Type Date of Onset Reaction(s) Facility Angiotensin Converting Enzyme (CARMEN) Inhibitors (1 source) Lisinopril Drug Allergy 8 Cough [facility] Aspartame (1 source) Aspartame Drug Allergy 6 Other: See Comments [facility] Estrogens (1 source) Estrogens Drug Allergy 5 Shortness of Breath [facility] Work Phone: Macrolides (antibiotic) (1 source) Erythromycin Drug Allergy 5 Diarrhea [facility] NSAIDs (1 source) celecoxib Drug Allergy 5 [facility] Penicillins (antibiotic) (1 source) Penicillins Drug Allergy 5 Diarrhea [facility] Sulfonamides (antibiotic) (1 source) Sulfonamides (Antibiotic) Drug Allergy 5 [facility] (20 sources) Aspartame; Translations: [ASPARTAME] Drug Allergy 6 Other: See Comments [facility] (20 sources) celecoxib; Translations: [CELECOXIB] Drug Allergy 5 Rash [facility] (20 sources) Estrogens; Translations: [ESTROGENS] Drug Allergy 5 Shortness of Breath [facility] (20 sources) Lisinopril; Translations: [LISINOPRIL] Drug Allergy 8 Cough [facility] (20 sources) NSAIDs; Translations: [NSAIDS (NON-STEROIDAL ANTI-INFLAMMATOR Y DRUG)] Propensity to adverse reactions (disorder) 9 Unknown [facility] (20 sources) Penicillins; Translations: [PENICILLINS] Propensity to adverse reactions (disorder) 5 Diarrhea [facility] Comment on above: Has tolerated short term. (20 sources) Sulfonamides (Antibiotic); Translations: [SULFA (SULFONAMIDE ANTIBIOTICS)] Propensity to adverse reactions (disorder) 5 Rash [facility] (20 sources) ERYTHROMYCIN BASE; Translations: [ERYTHROMYCIN BASE] Propensity to adverse reactions (disorder) 5 Diarrhea [facility] Medications Current Medications Medication Drug Class(es) Dates Sig (Normalized) Sig (Original) acetaminophen 500 mg / diphenhydrAMINE hydrochloride 25 mg oral tablet (15 sources) Histamine-1 Receptor Antagonist Start: 11-03-2022 cetirizine hydrochloride 10 mg oral tablet (13 sources) Histamine-1 Receptor Antagonist Start: 02-05-2023 take 1 tablet by mouth twice daily Cholecalciferol (20 sources) Vitamin D Start: 02-05-2023 take 1 capsule by mouth once daily Start: 02-05-2023 take 1 capsule by mo ut once daily Cholecalciferol (Vitamin D3) 62.5 mcg [...] 1 ml denosumab 60 mg/ml prefilled syringe (18 sources) RANK Ligand Inhibitor Start: 12-04-2022 End: 02-13-2024 diphenhyd/phenyleph/carmen taminop (TYLENOL ALLERGY M-S NIGHTTIME ORAL) (20 sources) diphenhyd/phenyl eph/carmen taminop (TYLENOL ALLERGY M-S NIGHTTIME ORAL) Take by mouth. Active diphenhyd/phenyl eph/acetaminop (TYLENOL ALLERGY M-S NIGHTTIME ORAL) Take by mouth. 0 Active Comment on above: Take by mouth. ferrous sulfate 325 mg oral tablet (20 sources) Start: 11-03-2022 take 1 tablet by binta th once daily ferrous sulfate (IRON ORAL) Take by mouth once daily. Active ferrous sulfate (IRON ORAL) Take by mouth once daily. 0 Active Comment on above: Take by mouth once d aily. fluocinonide 0.0005 mg/mg topical ointment (20 sources) Corticosteroid Start: 02-05-2023 End: 02-05-2023 iv contrast (will be provided with radiology test) (20 sources) Start: 12-13-2022 iv contrast (will be provided with radiology [...] mg oral tablet (20 sources) l-Thyroxine Start: 03-11-2024 End: 09-29-2024 take 1 tablet by mouth once daily Start: 11-06-2023 End: 03-11-2024 take 1 tablet [...] capsule Discontinued 100 ug PO DAILY 90 February 05, 2023 10:54am February 19, 2023 [...] Vitamin B Complex (B Complex-Vitamin B12) tablet (15 sources) Start: 3 Start: 11-03-2022 Vitamin B Comp jose (B Complex-Vitamin B12) tablet Active 1 {tbl} [...] tablet (20 sources) Vitamin K Antagonist Start: 5 Start: 03-11-2024 End: 11-05-2024 take 1 tablet by mouth once daily Warfarin 5 mg tablet Discontinued 0 PO DAILY 90 1 July 14, 2024 9:52am November 05, 2024 [...] November 05, 2023 1:27pm orally daily; 5mg -, 2.5mg - Comment on above: 7.5 mg every Sun, i; 5 mg all other days 5 mg every Sun, Sun; 7.5 mg all other days Take 5mg [...] Comment on above: [facility] Take with a full glass of water, on an empty stomach; do NOT lie down for 30minutes. allopurinol 100 mg oral tablet (20 sources) Xanthine Oxidase Inhibitor Start: 04-29-2021 End: 02-05-2023 take 2 tablets by mouth once daily Allopurinol 100 mg tablet Discontinued 100 mg PO DAILY November 03, 2022 12:00am February 05, 2023 8:05am 2 tabs daily Start: 10-25-2019 End: 09-29-2024 take 1 tablet by mouth twice daily Allopurinol 100 mg tablet Discontinued 100 mg PO TWICE A DAY 200 2 June 21, 2023 12:41pm September 29, 2024 1:51pm Start: 10-23-2019 End: 09-13-2020 take 2 tablets by mouth once daily allopurinol (ZYLOPRIM) 100 mg tablet Take 2 tablets by mouth once daily. 180 tablet 3 10/23/2019 09/13/2020 Discontinued Comment on above: Take 2 tablets by mo uth once daily. amoxicillin 500 mg oral capsule (7 sources) Penicillin-class Antibacterial Start: 08-08-19 End: 01-14-20 take 4 capsules by mouth once Amoxicillin 500 mg capsule Discontinued 2000 mg PO ONCE 4 August 08, 2023 12:00am January 14, 2024 2:26pm Start: 08-08-2023 take 2000 mg by mouth once Robeline xicillin Active 2000 MG PO ONCE 4 [...] the face 180 mL 04/23/2017 09/13/2020 Discontinued FLUoxetine 20 mg oral capsule (20 sources) Serotonin Reuptake Inhibitor Start: 10-23-2019 End: 09-18-2024 take 1 capsule by mouth once daily Fluoxetine 20 mg capsule Discontinued 20 mg PO DAILY 90 November 08, 2023 12:27pm September 18, 2024 8:09am Comment on above: Take 1 capsule by [facility] once daily. furosemide 20 mg oral tablet (20 sources) [...] capsule Discontinued 0 PO TWICE A DAY February 05, 2023 10:54am November 01, 2023 [...] a day; hydrocortisone 25 mg/ml topical cream (13 sources) Corticosteroid Start: 02-05-2023 End: 05-07-2023 Hydrocortisone [...] tablet Discontinued 25 mg PO AT BEDTIME 90 3 February 05, 2023 10:55am September 11, 2023 [...] needed. zolpidem tartrate 5 mg oral tablet (15 sources) gamma-Aminobutyr ic Acid-ergic Agonist Start: 3 End: 3 take 1 tablet by mouth at bedtime Zolpidem (Ambien) 5 mg tablet Discontinued 5 mg PO AT BEDTIME 1 0 November 10, 2022 12:00am February 05, 2023 8:09am Problems Active Problems Problem Classification Problem Date Documented Da te Episodic/Chronic Abdominal pain (14 sources) Right flank pain; Translations: [Unspecified abdominal pain] Onset: 0 Resolved: 4 04-14-2013 Episodic Acute and unspecified renal failure (20 sources) Injury of kidney; Translations: [Acute kidney failure, unspecified] 09-03-2020 Episodic Allergic reactions (20 sources) Urticaria; Translations: [Urticaria, unspecified] 11-07-2022 Episodic Anxiety disorders (20 sources) Mixed anxiety and depressive disorder; Translations: [Anxiety disorder, unspecified] Onset: 9 04-25-2018 Chronic Biliary tract disease (15 sources) Gallstone; Translations: [Calculus of gallbladder without cholecystitis without obstruction] 11-07-2022 Episodic Calculus of urinary tract (20 sources) Kidney stone; Translations: [Calculus of kidney] Onset: 0 02-24-2010 Episodic Chronic obstructive pulmonary disease and bronchiectasis (12 sources) Mild chronic obstructive pulmonary disease; Translations: [Chronic obstructive pulmonary disease, unspecified] 04-10-2023 Chronic Coagulation and hemorrhagic disorders (20 sources) Heterozygous Factor V Leiden mutation; Translations: [Activated protein C resistance] Onset: 3 Chronic Complications of surgical procedures or medical care (15 sources) Periprosthetic fracture; Translations: [Periprosthetic fracture around [...] [Essential (primary) hypertension] Onset: 6 07-07-2005 Chronic Fluid and electrolyte disorders (6 sources) Hyperkalemia; Translations: [Hyperkalemia] Onset: 5 01-15-2024 Episodic Fracture of upper limb (20 sources) Fracture of shaft of humerus ; Translations: [Displaced comminuted fracture of shaft of humerus, left arm, subsequent encounter for fracture with routine healing] Onset: 4 Resolved: 7 02-05-2020 Episodic Genitourinary symptoms and ill-defined conditions (15 sources) History of urinary tract infection; Translations: [Personal history of urinary (tract) infections] 11-07-2022 Episodic Gout and other crystal arthropathies (20 sources) Gout; Translations: [Gout, unspecified] Onset: 6 02-19-2006 Chronic Immunizations and screening for infectious disease (16 sources) Encounter for screening for other viral diseases; Translations: [Suspected disease caused by 2019-nCoV] Onset: 3 11-18-2019 Episodic Malaise and fatigue (18 sources) Fatigue; Translations: [Chronic fatigue, unspecified] 02-05-2023 Chronic Malignant neoplasm without specification of site (15 sources) Malignant neoplastic disease; Translations: [Malignant (primary) neoplasm, unspecified] 11-07-2022 Chronic Miscellaneous mental health disorders (1 source) Chronic insomnia; Translations: [Psychophysiologic insomnia] Chronic Mood disorders (20 sources) Recurrent major depression in partial remission; Translations: [Major depressive disorder, recurrent, in partial remission] Onset: 0 01-13-2020 Chronic Nonspecific chest pain (2 sources) Other chest pain; Translations: [Other chest pain] Onset: 5 Episodic Osteoarthritis (20 sources) Arthritis of shoulder region joint; Translations: [Primary osteoarthritis, unspecified shoulder] Onset: 6 Resolved: 0 04-25-2018 Chronic Osteoporosis (20 sources) Osteoporosis; Translations: [Age-related osteoporosis without current pathological fracture] Onset: 5 11-07-2022 Chronic Other bone disease and musculoskeletal deformities (15 sources) Osteopenia; Translations: [Other specified disorders of bone density and structure, unspecified site] 11-07-2022 Episodic Other circulatory disease (15 sources) Inferior vena cava filter in situ; Translations: [Presence of other vascular implants and grafts] 10-25-2019 Chronic Other connective tissue disease (20 sources) History of right shoulder arthroplasty; Translations: [Presence of right artificial shoulder joint] Onset: 9 11-28-2018 Chronic Other connective tissue disease (5 sources) H/O: back problem; Translations: [Personal history of other diseases of the musculoskeletal system and connective tissue] 11-07-2022 Episodic Other diseases of kidney and ureters (15 sources) Hydronephrosis co-occurrent and due to calculus of kidney and ureter; Translations: [Hydronephrosis with renal and ureteral calculous obstruction] 09-05-2020 Episodic Other gastrointestinal disorders (15 sources) Irritable bowel syndrome; Translations: [Irritable bowel syndrome without diarrhea] 11-07-2022 Chronic Other gastrointestinal disorders (1 source) Bariatric surgery status; Translations: [Bariatric surgery status] Onset: 3 Episodic Other gastrointestinal disorders (15 sources) Gastrointestinal tract problem; Translations: [Other specified symptoms and signs involving the digestive system and abdomen] 11-07-2022 Episodic Other gastrointestinal disorders (6 sources) Incontinence of feces; Translations: [Full incontinence of feces] 08-06-2023 Episodic Other gastrointestinal disorders (1 source) Full incontinence of feces; Translations: [Full incontinence of feces] 08-06-2023 Episodic Other inflammatory condition of skin (20 sources) Rosacea; Translations: [Rosacea, unspecified] Onset: 2 03-25-2012 Chronic Other injuries and conditions due to external causes (15 sources) H/O: fracture; Translations: [Personal history of (healed) traumatic fracture] 11-07-2022 Episodic Other liver diseases (15 sources) Cardiac enzymes abnormal; Translations: [Abnormal levels of other serum enzymes] 09-03-2020 Episodic Other liver diseases (5 sources) Abnormal levels of other serum enzymes; Translations: [Other nonspecific abnormal serum enzyme levels] 11-03-2022 Episodic Other lower respiratory disease (15 sources) Single lobe lung infiltrate; Translations: [Other [...] Chronic Other nutritional; endocrine; and metabolic disorders (9 sources) Obesity; Translations: [Obesity, unspecified] 04-10-2023 Chronic [...] pseudocyst of pancreas] Onset: 6 04-04-2016 Episodic Phlebitis; thrombophlebitis and thromboembolism (20 sources) H/O: Deep vein thrombosis; Translations: [Personal history of other venous thrombosis and embolism] 09-03-2020 Episodic Prolapse of female genital organs (20 sources) Instability of pelvic floor; Translations: [Other female genital prolapse] Onset: 0 04-24-2019 Chronic Pulmonary heart disease (20 sources) H/O: pulmonary embolus; Translations: [Personal history of pulmonary embolism] Onset: 5 Resolved: 0 Episodic Residual codes; unclassified (20 sources) Hypoxia; Translations: [Idiopathic sleep related nonobstructive alveolar hypoventilation] Onset: 0 01-21-2020 Chronic Residual codes; unclassified (15 sources) Hypersomnia; Translations: [Hypersomnia, unspecified] 11-07-2022 Chronic Residual codes; unclassified (10 sources) Idiopathic sleep related nonobstructive alveolar hypoventilation; Translations: [Idiopathic sleep related non-obstructive alveolar hypoventilation] 02-05-2023 Chronic Residual codes; unclassified (5 sources) FH: premature coronary heart disease; Translations: [Family history of ischemic heart disease and other diseases of the circulatory system] 11-17-2024 Episodic Residual codes; unclassified (1 source) Family history of ischemic heart disease and other diseases of the circulatory system; Translations: [Family history of ischemic heart disease and other diseases of the circulatory system] Onset: Episodic Respiratory failure; insufficiency; arrest (adult) (20 sources) Hypoxemic respiratory failure; Translations: [Respiratory failure, [...] unspecified] Onset: 7 Resolved: 9 04-25-2018 Episodic Intestinal obstruction without hernia (20 sources) [...] aftercare (20 sources) H/O: anticoagulant therapy; 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] unspecified] Onset: 9 Resolved: 0 09-06-2020 Chronic Residual codes; unclassified (20 sources) Insomnia; Translations: [Insomnia, unspecified] Onset: 5 04-05-2015 Episodic Spondylosis; intervertebral disc disorders; other back problems (20 sources) Chronic low back pain; Translations: [Chronic midline low back pain without sciatica] Onset: 8 09-26-2017 Episodic Unclassified (7 sources) PMH - PAST MEDICAL HISTORY OF Resolved: 0 01-09-2020 Results Test Name Value Interpretation Reference Range Facility Internal Medicine Office Vis true 02-04-2025 Internal Medicine Office Visit [facility] Internal Medicine [address] [place] [address] [place] [address] OFFICE VISIT Date of Service: 02/04/25 MR#: [id number] Acct: [id number] Name: ASHLEY PABON Rep #: [id number] : 1955 Provider: Dr. Yanique mccord MD Age/Sex: 69/F [place] [facility] [place] [place]: Signed Intake Vital Signs 08/06/24 14:31 11/17/24 10:02 02/04/25 13:24 Height 5 ft 4 in 5 ft 4 in 5 ft 4 in Weight: 209 lb 6 oz BMI 35.9 BP 102/58 L Blood Pressure Location Lt brachial Position Sitting Respiration 16 Pulse 55 L Pulse Source Monitor Temp 97.2 F L Temp Source Temporal Pulse Oximetry (%) 96 Oxygen Delivery Method room air Intake Visit Reasons: 3 M FU Chief Complaint: 3 M FU Payroll Services Analyst Required: No Accompanied by: Is patient in pain?: No Allergies Sulfa (Sulfonamide Antibiotics) Allergy (Verified 02/04/25 13:21) Rash erythromycin base Adverse Reaction (Verified 02/04/25 13:21) Abd cramps/diarrhea Penicillins Adverse Reaction (Verified 02/04/25 13:21) Abd cramps/diarrhea Medications ???Medication ???Instructions ???Recorded ???Confirmed ???Type diphenhydramine 25 1 tab PO QHS PRN 11/03/22 02/04/25 History mg-acetaminophen 500 mg tablet (Tylenol PM Extra Strength) ferrous sulfate 325 mg (65 mg 325 mg PO DAILY 11/03/22 02/04/25 History iron) tablet vitamin B complex (B 1 tab PO DAILY 11/03/22 02/04/25 H istory Complex-Vitamin B12 tablet) cetirizine 10 mg tablet 10 mg PO BID 02/05/23 02/04/25 His tory cholecalciferol (vitamin D3) 62.5 2,500 mcg PO DAILY 02/05/2302/04 History mcg (2,500 unit) capsule fluocinonide 0.05 % topical 1 applic topical BID PRN rash #60 02/05/23 02/04/25 Rx ointment grams tramadol 50 mg tablet 50 mg PO BID PRN pain #60 tabs 02/04/25 Rx gabapentin 300 mg capsule See Rx Instructions PO BID #270 02/04/25 Rx caps denosumab 60 mg/mL subcutaneous 60 mg subcut [id number] #1 mL 02/04/25 Rx syringe (Prolia) furosemide 20 mg tablet 20 mg PO QDAY #90 tabs 06/09/24 Rx fluoxetine 20 mg capsule 20 mg PO DAILY #90 caps 09/18/24 1 Rx allopurinol 100 mg tablet 100 mg PO BID #200 TABLETS 5 02/04/25 Rx warfarin 5 mg tablet See Rx Instructions PO DAILY #90 1 02/04/25 Rx tabs levothyroxine 75 mcg tablet 75 mcg PO QDAY #60 tabs 02/04/25 1 Rx Have you fallen in the past year?: No Nurse's Note: needs refill on levothyroxine and questions concerning ct scan in december [facility] Medical History (Updated 02/04/25 @ 16:[address] Yanique Espinosa MD) Borderline type [address] diabetes mellitus Abnormal cardiac CT angiography Chest tightness Family history of early CAD Hyperkalemia Hypertension [...] Pulmonary embolism DVT (deep venous thrombosis) Arthritis [place] filter in place Asthma History of diabetes [...] M FU Details: ASHLEY PABON, is a 69-year-old female with a history of HTN, borderline diabetes, and hypothyroidism, presenting for follow-up and medication refills. The patient reports feeling pretty good overall but (more content not included)... Normal [facility] Basic Metabolic Profile (BMP )on 02-02-2025 BUN/CRE 33.3 RATIO High 01-26 [facility] Comment on above: Performed By: #### L [id number], L506.0400, L500.2500 #### [facility] [address] [place], [address] Calcium [Mass/Vol] 9.9 mg/dL Normal 7.6-11.0 [facility] Comment on above: Performed By: #### L [id number], [id number], L500.2500 #### [facility] [address] [place], [address] Chloride [Moles/Vol] 102 mmol/L Normal 98-108 [facility] Comment on above: Performed By: #### L [id number], [id number], L500.2500 #### [facility] [address] [place], [address] CO2 [Moles/Vol] 29.1 mmol/L Normal 21.0-32.0 [facility] Comment on above: Performed By: #### L [id number], [id number], L500.2500 #### [facility] [address] [place], [address] Creatinine [Mass/Vol] 0.74 mg/dL Normal 0.70-1.20 [facility] Comment on above: Performed By: #### L [id number], [id number], L500.2500 #### [facility] [address] [place], [address] GAP 10 Normal 5-15 [facility] Comment on above: Performed By: #### L [id number], [id number], L500.2500 #### [facility] [address] [place], [address] GFR/1.73 sq M.predicted among non-blacks MDRD (S/P/Bld) [Vol rate/Area] 86 mL/min/{1.73_m2} Normal >60 [facility] Comment on above: Result Comment: mL/m in/1.73m2 CKD-EPI Creatinine Equation (2020) Performed By: #### L 501.9520, L506.0400, L500.2500 #### [facility] [address] [place], [address] Glucose [Mass/Vol] 105 mg/dL High 70-99 [facility] Comment on above: Performed By: #### L 501.9520, L506.0400, L500.2500 #### [facility] [address] [place], [address] Potassium [Moles/Vol] 4.6 mmol/L Normal 3.3-5.1 [facility] Comment on above: Performed By: #### L 501.9520, L506.0400, L500.2500 #### [facility] [address] [place], [address] Sodium [Moles/Vol] 140 mmol/L Normal 133-145 [facility] Comment on above: Performed By: #### L 501.9520, L506.0400, L500.2500 #### [facility] [address] [place], [address] Urea nitrogen [Mass/Vol] 25 mg/dL High 07-26 [facility] Comment on above: Performed By: #### L 501.9520, L506.0400, L500.2500 #### [facility] [address] [place], [address] T4 Free Directon 02-02-2025 T4 FREE DIRECT 1.10 ng/dL Normal 0.76-1.46 [facility] Comment on above: Performed By: #### L 501.9520, L506.0400, L500.2500 #### [facility] [address] [place], [address] Thyroid Stim Hormone (TSH)on 02-02-2025 TSH 0.185 uIU/mL Low 0.300-4.200 [facility] Comment on above: Performed By: #### L 501.9520, L506.0400, L500.2500 #### [facility] [address] [place], [address] Anion gap in Serum or Plasma Ordered By: Yanique Espinosa on 12-26-2024 Anion gap [Moles/Vol] 8 mmol/L 5-15 [facility] BUN/creatinine ratioOrdered By: Yanique Espinosa on 12-26-2024 Urea nitrogen/Creatinine [Mass ratio] 31.3 mg/mg High 10-20 [facility] Bilirubin, totalOrdered By: Yanique Espinosa on 12-26-2024 Bilirubin [Mass/Vol] 0.41 mg/dL 0.00-1.30 [facility] Calculated very low density lipoprotein (VLDL) cholesterol measurementOrdered By: Yanique Espinosa on 12-26-2024 Calculated very low density lipoprotein (VLDL) cholesterol measurement 19 mg/dL 5-40 [facility] Carbon dioxide, total [Moles /volume] in Central venous bloodOrdered By: Yanique Espinosa on 12-26-2024 CO2 [Moles/Vol] 28.8 mmol/L 21.0-32.0 [facility] Chloride assayOrdered By: Asha Espinosa on 12-26-2024 Chloride [Moles/Vol] 104 mmol/L 98-108 [facility] Comprehensive Metabolic Prof ilon 12-26-2024 Albumin [Mass/Vol] 3.8 g/dL Normal 3.4-4.8 [facility] Comment on above: Performed By: #### L 500.4050, L501.9520, L500.4100 ####[facility] [address] [place], [address] Albumin/Globulin [Mass ratio] 1.6 {ratio} Normal 0.9-2.4 [facility] Comment on above: Performed By: #### L 500.4050, L501.9520, L500.4100 ####[facility] [address] [place], [address] ALK PHOS 63 U/L Normal 35-104 [facility] Comment on above: Performed By: #### L 500.4050, L501.9520, L500.4100 ####[facility] [address] [place], [address] ALT [Catalytic activity/Vol] 20 U/L Normal <=34 [facility] Comment on above: Performed By: #### L 500.4050, L501.9520, L500.4100 ####[facility] [address] [place], [address] AST [Catalytic activity/Vol] 22 U/L Normal <=31 [facility] Comment on above: Performed By: #### L 500.4050, L501.9520, L500.4100 ####[facility] [address] [place], [address] Bilirubin [Mass/Vol] 0.41 mg/dL Normal 0.00-1.30 [facility] Comment on above: Performed By: #### L 500.4050, L501.9520, L500.4100 ####[facility] [address] [place], [address] BUN/CRE 31.3 RATIO High 10-20 [facility] Comment on above: Performed By: #### L 500.4050, L501.9520, L500.4100 ####[facility] [address] [place], [address] Calcium [Mass/Vol] 10.0 mg/dL Normal 7.6-11.0 [facility] Comment on above: Performed By: #### L 500.4050, L501.9520, L500.4100 ####[facility] [address] [place], [address] Chloride [Moles/Vol] 104 mmol/L Normal 98-108 [facility] Comment on above: Performed By: #### L 500.4050, L501.9520, L500.4100 ####[facility] [address] [place], [address] CO2 [Moles/Vol] 28.8 mmol/L Normal 21.0-32.0 [facility] Comment on above: Performed By: #### L 500.4050, L501.9520, L500.4100 ####[facility] [address] [place], [address] Creatinine [Mass/Vol] 0.85 mg/dL Normal 0.70-1.20 [facility] Comment on above: Performed By: #### L 500.4050, L501.9520, L500.4100 ####[facility] [address] [place], [address] GAP 8 Normal 5-15 [facility] Comment on above: Performed By: #### L 500.4050, L501.9520, L500.4100 ####[facility] [address] [place], [address] GFR/1.73 sq M.predicted among non-blacks MDRD (S/P/Bld) [Vol rate/Area] 74 mL/min/{1.73_m2} Normal >60 [facility] Comment on above: Result Comment: mL/m in/1.73m2 CKD-EPI Creatinine Equation (2020) Performed By: #### L 500.4050, L501.9520, L500.4100 ####[facility] [address] [place], [address] Globulin (S) [Mass/Vol] 2.4 g/dL Normal 2.2-4.2 [facility] Comment on above: Performed By: #### L 500.4050, L501.9520, L500.4100 ####[facility] [address] [place], [address] Glucose [Mass/Vol] 93 mg/dL Normal 70-99 [facility] Comment on above: Performed By: #### L 500.4050, L501.9520, L500.4100 ####[facility] [address] [place], [address] Potassium [Moles/Vol] 5.4 mmol/L High 3.3-5.1 [facility] Comment on above: Performed By: #### L 500.4050, L501.9520, L500.4100 ####[facility] [address] [place], [address] Sodium [Moles/Vol] 141 mmol/L Normal 133-145 [facility] Comment on above: Performed By: #### L 500.4050, L501.9520, L500.4100 ####[facility] [address] [place], [address] T PROT 6.3 g/dL Normal 5.9-8.4 [facility] Comment on above: Performed By: #### L 500.4050, L501.9520, L500.4100 ####[facility] [address] [place], [address] Urea nitrogen [Mass/Vol] 27 mg/dL High - [facility] Comment on above: Performed By: #### L 500.4050, L501.9520, L500.4100 ####[facility] [address] [place], [address] Glomerular filtration rate ( GFR) estimation/1.73 sq m using serum, plasma, or whole bOrdered By: Yanique Espinosa on 12-26-2024 GFR/1.73 sq M.predicted among non-blacks MDRD (S/P/Bld) [Vol rate/Area] 74 mL/min/{1.73_m2} >60 [facility] Comment on above: mL/min/1.73m2 CKD-EP I Creatinine Equation (2020) LDL calc ser/plasOrdered By: Yanique Espinosa on 12-26-2024 Cholesterol in LDL [Mass/Vol] 82 mg/dL [facility] Comment on above: Awiawmlaza=222-524 m g/dL & Higher Weey=420 mg/dL or greaterFriedwald Equation for LDL-C Laboratory - Chemistry and C hemistry - challengeOrdered By: Yanique Espinosa on 12-26-2024 AST [Catalytic activity/Vol] 22 U/L <32 [facility] Lipid Profileon 12-26-2024 CHOL:HDL 3.09 Normal [facility] Comment on above: Performed By: #### L 500.4050, L501.9520, L500.4100 ####[facility] [address] [place], [address] Cholesterol [Mass/Vol] 150 mg/dL Normal <=200 [facility] Comment on above: Result Comment: Chol esterol level, Desirable <200 mg/dL Borderline high cholesterol 200-239 mg/dL High cholesterol >=240 mg/dL Recommendations of the NCEP Adult Treatment Panel for the following risk-cutoff thresholds for the [place] population. Performed By: #### L 500.4050, L501.9520, L500.4100 ####[facility] [address] [place], [address] Cholesterol in HDL [Mass/Vol] 49 mg/dL Normal [facility] Comment on above: Result Comment: Julianne onal Cholesterol Education Program (NCEP) guidelines: <40 mg/dL: Low HDL-cholesterol (major risk factor for CHD) >= 60 mg/dL: High HDL-cholesterol (negative risk factor for CHD) HDL-cholesterol is affected by a number of factors, e.g. smoking, exercise, hormones, sex and age. Performed By: #### L 500.4050, L501.9520, L500.4100 ####[facility] [address] [place], [address] Cholesterol in LDL [Mass/Vol] 82 mg/dL Normal [facility] Comment on above: Result Comment: Bord wclazv=941-114 mg/dL Higher Leoz=620 mg/dL or greater Friedwald Equation for LDL-C Performed By: #### L 500.4050, L501.9520, L500.4100 ####[facility] [address] [place], [address] Cholesterol in VLDL [Mass/Vol] 19 mg/dL Normal 5-40 [facility] Comment on above: Performed By: #### L 500.4050, L501.9520, L500.4100 ####[facility] [address] [place], [address] Triglyceride [Mass/Vol] 96 mg/dL Normal [facility] Comment on above: Result Comment: The drugs N-Acetylcysteine and Metamizole may falsely depress this assay. Normal range: <150 mg/dL Borderline High: 150-199 mg/dL High: 200-499 mg/dL Very High: >500 mg/dL Performed By: #### L 500.4050, L501.9520, L500.4100 ####[facility] [address] [place], [place], [address] Potassium measurement (mass/ volume)Ordered By: Yanique Espinosa on 12-26-2024 Potassium (Unsp spec) [Mass/Vol] 5.4 mmol/L High 3.3-5.1 [facility] Screening total cholesterol/ high density lipoprotein (HDL) cholesterol ratioOrdered By: Yanique Espinosa on 12-26-2024 Cholesterol.total/Chol esterol in HDL [Mass ratio] 3.09 {ratio} [facility] Serum creatinine measurement (mass/volume)Ordered By: Yanique Espinosa on 12-26-2024 Creatinine [Mass/Vol] 0.85 mg/dL 0.70-1.20 [facility] Serum globulin measurementOr dered By: Yanique Espinosa on 12-26-2024 Globulin (S) [Mass/Vol] 2.4 g/dL 2.2-4.2 [facility] Serum glucose measurement (m ass/volume)Ordered By: Yanique Espinosa on 12-26-2024 Glucose [Mass/Vol] 93 mg/dL 70-99 [facility] Serum or plasma alanine bond otransferase (ALT) measurementOrdered By: Yanique Espinosa on 12-26-2024 ALT [Catalytic activity/Vol] 20 U/L <35 [facility] Serum or plasma albumin des urement (mass/volume)Ordered By: Yanique Espinosa on 12-26-2024 Albumin [Mass/Vol] 3.8 g/dL 3.4-4.8 [facility] Serum or plasma albumin/glob ulin mass ratioOrdered By: mary Espinosa on 12-26-2024 Albumin/Globulin [Mass ratio] 1.6 {ratio} 0.9-2.4 [facility] Serum or plasma alkaline archana sphatase measurementOrdered By: Ashaneda Javaddevin 12-26-2024 ALP [Catalytic activity/Vol] 63 U/L 35-104 [facility] Serum or plasma calcium des urement (mass/volume)Ordered By: Yanique Espinosa on 12-26-2024 Calcium [Mass/Vol] 10.0 mg/dL 7.6-11.0 [facility] Serum or plasma cholesterol in HDL measurement (mass/volume)Ordered By: Yanique Javaddevin on 12-26-2024 Cholesterol in HDL [Mass/Vol] 49 mg/dL >40 [facility] Comment on above: National Cholesterol Education Program (NCEP) guidelines:<40 mg/dL: Low HDL-cholesterol (major risk factor for CHD)>= 60 mg/dL: High HDL-cholesterol (negative risk factor for CHD)HDL-cholesterol is affected by a number of factors, e.g. smoking, exercise, hormones, sex and age. Serum or plasma cholesterol measurement (mass/volume)Ordered By: Yanique Javaddevin on 12-26-2024 Cholesterol [Mass/Vol] 150 mg/dL <201 [facility] Comment on above: Cholesterol level, D esirable <200 mg/dLBorderline high cholesterol 200-239 mg/dLHigh cholesterol >=240 mg/dLRecommendations of the NCEP Adult Treatment Panel for the following risk-cutoff thresholds for the [place] population. Serum or plasma urea nitroge n measurement (mass/volume)Ordered By: Deamary Farnsworthlakhwindermarky on 12-26-2024 Urea nitrogen [Mass/Vol] 27 mg/dL High 4-19 [facility] Sodium levelOrdered By: Ashalakshmi cuate Javadlakhwindermarky on 12-26-2024 Sodium [Moles/Vol] 141 mmol/L 133-145 [facility] TSH DL <= 0.005 mIU/L QnOrde red By: Nikunjrosettamary Espinosa on 12-26-2024 TSH Qn 0.250 uIU/mL Low 0.300-4.200 [facility] Thyroid Stim Hormone (TSH)on 12-26-2024 TSH 0.250 uIU/mL Low 0.300-4.200 [facility] Comment on above: Performed By: #### L 500.4050, L501.9520, L500.4100 ####[facility] [address] [place], [address] Total proteinOrdered By: Fredo villatoro Javaddevin on 12-26-2024 Protein [Mass/Vol] 6.3 g/dL 5.9-8.4 [facility] Triglycerides measurementOrd ered By: Nikunjrosettamary Espinosa on 12-26-2024 Triglyceride [Mass/Vol] 96 mg/dL <199 [facility] Comment on above: The drugs N-Acetylcy steine and Metamizole may falsely depress this assay. Normal range: <150 mg/dLBorderline High: 150-199 mg/dLHigh: 200-499 mg/dLVery High: >500 mg/dL Coronary Angiography CTon Coronary Angiography CT [facility] Imaging Services [address] [place] [address] 12/24/24 1853 MR#: [id number] Acct: [id number] Name: ASHLEY PABON Rep #: [id number] : 1955 69 From: Mj Velez MD PCP: Dr. Yanique Espinosa MD Status:REG REF Y Location: CT Calcium Scoring Date of Study:: 12/12/24 Indications Indications: Cardiac risk assessment Coronary Calcium Scoring: High-resolution Computed Tomographic imaging of the chest was performed on [12/12/2024], with particular attention paid to the coronary arteries. Images from the examination were analyzed for the presence and extent of coronary artery calcification , using coronary calcium quantification software. The patient tolerated the procedure well and there were no complications. The results of the coronary calcification analysis are provided below. Findings Coronary Artery Left Main (LM): 0 Left Anterior Descending (LAD): 55.6 Left Circumflex (LCX): 1.2 Right Coronary Artery (RCA): 65.4 Total Agatston Score: 122.2 Percentile Rankin to 75% Calcium Scoring Interpretation: Different methods to categorize the overall amount of coronary plaque. Overall amount CAC SIS Visual of coronary plaque P1 Mild -100 <2 1-2 vessels with mild amount of plaque P2 Moderate 101-300 3-4 1-2 vessels with moderate amount, 3 vessels with mild amount of plaque P3 Severe 301-999 5-7 3 vessels with moderate amount, 1 vessel with severe amount of plaque P4 Extensive >1000 >8 2-3 vessels with severe amount of plaque Calcium Score: Moderate: 1-2 vessels w/moderate amt, 3 vessels w/mild amt of plaque Conclusion: Mild to moderate two-vessel disease noted. 12/24/24 9974 Date Mj Velez MD Cosigner Signature (if applicable): Date CC: Dr. Mj Velez MD; Dr. Yanique Espinosa MD Signed Normal [facility] Limited Chest CT Cardiac Onl yon 12-12-[address] Cardiac Only [facility] Imaging Services [address] [place] [id number] Cardiac Only MR#: [id number] Acct: [id number] Name: ASHLEY PABON Rep #: [id number] : 1955 F 69 From: Carlos snyder MD PCP: Dr. Yanique Espinosa MD Status: REG REF Study: Limited Chest CT Cardiac Only Date of Exam: Exam# [id number] Ordering Dr: Yanique Espinosa MD PROCEDURE: LIMITED CHEST CT CARDIAC ONLY 12/12/2024 REASON FOR EXAM: CARDIAC RISK ASSESEMENT Family history. TECHNIQUE: Procedure Code: CTCCTACHLIM Modality: CT Procedure: LIMITED CHEST CT CARDIAC ONLY CONTRAST: None One or more dose reduction techniques were used (e.g., Automated exposure control, adjustment of the mA and/or kV according to patient size, use of iterative reconstruction technique). RADIATION DOSE SUMMARY: CTDlvol: 12.19 mGy DLP: 219.42 mGycm COMPARISON: None FINDINGS: Small benign-appearing mediastinal lymph nodes. Coronary artery calcification. The lungs are clear. Evidence of prior hiatal hernia repair. CT/Limited Chest CT Cardiac Only IMPRESSION: Coronary artery calcification. Reading Location: [place] [address] CC: Dr. Yanique Espinosa MD Injection Molding Supervisor: Signed Normal [facility] Absolute lymphocyte countOrd ered By: Yanique Espinosa on 12-02-2024 Lymphocytes Auto (Unsp spec) [#/Vol] 2.21 10*3/uL 0.83-4.51 [facility] Absolute neutrophil countOrd ered By: Yanique Espinosa on 12-02-2024 Neutrophils (Bld) [#/Vol] 3.4 10*3/uL 2.0-7.7 [facility] Anion gap in Serum or Plasma Ordered By: Yanique Espinosa on 12-02-2024 Anion gap [Moles/Vol] 8 mmol/L 5-15 [facility] Automated lymphocyte count a s percentage of total leukocytesOrdered By: Yanique Espinosa on 12-02-2024 Lymphocytes/100 WBC Auto (Unsp spec) 34.6 % 19-41 [facility] BUN/creatinine ratioOrdered By: Yanique Espinosa on 12-02-2024 Urea nitrogen/Creatinine [Mass ratio] 16.9 mg/mg 10-20 [facility] Basophil percentageOrdered B y: Yanique Espinosa on 12-02-2024 Basophils/100 WBC (Bld) 0.9 % 0-1 [facility] Bilirubin, totalOrdered By: Yanique Espinosa on 12-02-2024 Bilirubin [Mass/Vol] 0.29 mg/dL 0.00-1.30 [facility] CBC W/Diff, Automatedon 08-2 -2024 Absolute Lymph 2.21 X10 3/uL Normal 0.83-4.51 [facility] Comment on above: Performed By: #### L 100.0100, L501.9520, L500.4050 ####[facility] [address] [place], [address] Absolute Neut 3.4 X10 3/uL Normal 2.0-7.7 [facility] Comment on above: Performed By: #### L 100.0100, L501.9520, L500.4050 ####[facility] [address] [place], [address] Basophils/100 WBC (Bld) 0.9 % Normal 0-1 [facility] Comment on above: Performed By: #### L 100.0100, L501.9520, L500.4050 ####[facility] [address] [place], [address] Eosinophils/100 WBC (Bld) 3.0 % Normal 0-5 [facility] Comment on above: Performed By: #### L 100.0100, L501.9520, L500.4050 ####[facility] [address] [place], [address] Erythrocyte distribution width (RBC) [Ratio] 13.5 % Normal 11.6-14.6 [facility] Comment on above: Performed By: #### L 100.0100, L501.9520, L500.4050 ####[facility] [address] [place], [address] Hematocrit (Bld) [Volume fraction] 40.4 % Normal 37-47 [facility] Comment on above: Performed By: #### L 100.0100, L501.9520, L500.4050 ####[facility] [address] [place], [address] Hemoglobin (Bld) [Mass/Vol] 13.0 g/dL Normal 12.0-15.0 [facility] Comment on above: Performed By: #### L 100.0100, L501.9520, L500.4050 ####[facility] [address] [place], [address] IG% 0.300 Normal 0.0-0.9 [facility] Comment on above: Result Comment: IG% - Immature Granulocytes (promyelocytes, myelocytes and metamyelocytes) > 1% indicates that a LEFT SHIFT is Present. Performed By: #### L 100.0100, L501.9520, L500.4050 ####[facility] [address] [place], [address] Lymphocytes/100 WBC (Bld) 34.6 % Normal 19-41 [facility] Comment on above: Performed By: #### L 100.0100, L501.9520, L500.4050 ####[facility] [address] [place], [address] MCH (RBC) [Entitic mass] 32.3 pg High 27.0-32.0 [facility] Comment on above: Performed By: #### L 100.0100, L501.9520, L500.4050 ####[facility] [address] [place], [address] MCHC (RBC) [Mass/Vol] 32.2 g/dL Normal 32-36 [facility] Comment on above: Performed By: #### L 100.0100, L501.9520, L500.4050 ####[facility] [address] [place], [address] MCV (RBC) [Entitic vol] 100.2 fL High 81-99 [facility] Comment on above: Performed By: #### L 100.0100, L501.9520, L500.4050 ####[facility] [address] [place], [address] Monocytes/100 WBC (Bld) 7.4 % Normal 0-10 [facility] Comment on above: Performed By: #### L 100.0100, L501.9520, L500.4050 ####[facility] [address] [place], [address] Neutrophils/100 WBC (Bld) 53.8 % Normal 47-70 [facility] Comment on above: Performed By: #### L 100.0100, L501.9520, L500.4050 ####[facility] [address] [place], [address] Nucleated RBC (Bld) [#/Vol] 0 10*3/uL Normal 0-5 [facility] Comment on above: Performed By: #### L 100.0100, L501.9520, L500.4050 ####[facility] [address] [place], [address] Platelet mean volume (Bld) [Entitic vol] 11.4 fL Normal 6.2-12.0 [facility] Comment on above: Performed By: #### L 100.0100, L501.9520, L500.4050 ####[facility] [address] [place], [address] Platelets (Bld) [#/Vol] 217 10*3/uL Normal 150-450 [facility] Comment on above: Performed By: #### L 100.0100, L501.9520, L500.4050 ####[facility] [address] [place], [address] RBC (Bld) [#/Vol] 4.03 10*6/uL Low 4.2-5.4 [facility] Comment on above: Performed By: #### L 100.0100, L501.9520, L500.4050 ####[facility] [address] [place], [address] RDW SD 50.4 fl High 35.1-43.9 [facility] Comment on above: Performed By: #### L 100.0100, L501.9520, L500.4050 ####[facility] [address] [place], [address] WBC (Bld) [#/Vol] 6.4 10*3/uL Normal 4.4-11.0 [facility] Comment on above: Performed By: #### L 100.0100, L501.9520, L500.4050 ####[facility] [address] [place], [address] Carbon dioxide, total [Moles /volume] in Central venous bloodOrdered By: Yanique Espinosa on 12-02-2024 CO2 [Moles/Vol] 27.3 mmol/L 21.0-32.0 [facility] Chloride assayOrdered By: Asha Espinosa on 12-02-2024 Chloride [Moles/Vol] 105 mmol/L 98-108 [facility] Comprehensive Metabolic Prof ilon 12-02-2024 Albumin [Mass/Vol] 4.0 g/dL Normal 3.4-4.8 [facility] Comment on above: Performed By: #### L 100.0100, L501.9520, L500.4050 ####[facility] [address] [place], [address] Albumin/Globulin [Mass ratio] 1.7 {ratio} Normal 0.9-2.4 [facility] Comment on above: Performed By: #### L 100.0100, L501.9520, L500.4050 ####[facility] [address] [place], [address] ALK PHOS 72 U/L Normal 35-104 [facility] Comment on above: Performed By: #### L 100.0100, L501.9520, L500.4050 ####[facility] [address] [place], [address] ALT [Catalytic activity/Vol] 35 U/L Normal <=34 [facility] Comment on above: Performed By: #### L 100.0100, L501.9520, L500.4050 ####[facility] [address] [place], [address] AST [Catalytic activity/Vol] 28 U/L Normal <=31 [facility] Comment on above: Performed By: #### L 100.0100, L501.9520, L500.4050 ####[facility] [address] [place], [address] Bilirubin [Mass/Vol] 0.29 mg/dL Normal 0.00-1.30 [facility] Comment on above: Performed By: #### L 100.0100, L501.9520, L500.4050 ####[facility] [address] [place], [address] BUN/CRE 16.9 RATIO Normal 10-20 [facility] Comment on above: Performed By: #### L 100.0100, L501.9520, L500.4050 ####[facility] [address] [place], [address] Calcium [Mass/Vol] 9.3 mg/dL Normal 7.6-11.0 [facility] Comment on above: Performed By: #### L 100.0100, L501.9520, L500.4050 ####[facility] [address] [place], [address] Chloride [Moles/Vol] 105 mmol/L Normal 98-108 [facility] Comment on above: Performed By: #### L 100.0100, L501.9520, L500.4050 ####[facility] [address] [place], [address] CO2 [Moles/Vol] 27.3 mmol/L Normal 21.0-32.0 [facility] Comment on above: Performed By: #### L 100.0100, L501.9520, L500.4050 ####[facility] [address] [place], [address] Creatinine [Mass/Vol] 0.77 mg/dL Normal 0.70-1.20 [facility] Comment on above: Performed By: #### L 100.0100, L501.9520, L500.4050 ####[facility] [address] [place], [address] GAP 8 Normal 5-15 [facility] Comment on above: Performed By: #### L 100.0100, L501.9520, L500.4050 ####[facility] [address] [place], [address] GFR/1.73 sq M.predicted among non-blacks MDRD (S/P/Bld) [Vol rate/Area] 83 mL/min/{1.73_m2} Normal >60 [facility] Comment on above: Result Comment: mL/m in/1.73m2 CKD-EPI Creatinine Equation (2020) Performed By: #### L 100.0100, L501.9520, L500.4050 ####[facility] [address] [place], [address] Globulin (S) [Mass/Vol] 2.3 g/dL Normal 2.2-4.2 [facility] Comment on above: Performed By: #### L 100.0100, L501.9520, L500.4050 ####[facility] [address] [place], [address] Glucose [Mass/Vol] 88 mg/dL Normal 70-99 [facility] Comment on above: Performed By: #### L 100.0100, L501.9520, L500.4050 ####[facility] [address] [place], [address] Potassium [Moles/Vol] 5.9 mmol/L High 3.3-5.1 [facility] Comment on above: Performed By: #### L 100.0100, L501.9520, L500.4050 ####[facility] [address] [place], [address] Sodium [Moles/Vol] 141 mmol/L Normal 133-145 [facility] Comment on above: Performed By: #### L 100.0100, L501.9520, L500.4050 ####[facility] [address] [place], [address] T PROT 6.3 g/dL Normal 5.9-8.4 [facility] Comment on above: Performed By: #### L 100.0100, L501.9520, L500.4050 ####[facility] [address] [place], [address] Urea nitrogen [Mass/Vol] 13 mg/dL Normal 4-19 [facility] Comment on above: Performed By: #### L 100.0100, L501.9520, L500.4050 ####[facility] [address] [place], [address] Eosinophil percentageOrdered By: Yanique Espinosa on 12-02-2024 Eosinophils/100 WBC (Bld) 3.0 % 0-5 [facility] Erythrocyte distribution wid th ratioOrdered By: Efewongbe Oleghe on 12-02-2024 Erythrocyte distribution width (RBC) [Ratio] 13.5 % 11.6-14.6 [facility] Erythrocyte distribution wid th standard deviationOrdered By: Efjeffrey Wisee on 12-02-2024 Erythrocyte distribution width (RBC) [Ratio] 50.4 fl High 35.1-43.9 [facility] Glomerular filtration rate ( GFR) estimation/1.73 sq m using serum, plasma, or whole bOrdered By: Yanique Espinosa on 12-02-2024 GFR/1.73 sq M.predicted among non-blacks MDRD (S/P/Bld) [Vol rate/Area] 83 mL/min/{1.73_m2} >60 [facility] Comment on above: mL/min/1.73m2 CKD-EP I Creatinine Equation (2020) Hematocrit Auto (Bld) [Volum e fraction]Ordered By: Nikunjpinckardmary Espinosa on 12-02-2024 Hematocrit (Bld) [Volume fraction] 40.4 % 37-47 [facility] Hemoglobin measurementOrdere d By: Yanique Espinosa on 12-02-2024 Hemoglobin (Bld) [Mass/Vol] 13.0 g/dL 12.0-15.0 [facility] Immature granulocytes/100 WB C Auto (Bld)Ordered By: Yanique Espinosa on 12-02-2024 Immature granulocytes/100 WBC (Bld) 0.300 % 0.0-0.9 [facility] Comment on above: IG% - Immature Granu locytes (promyelocytes, myelocytes and metamyelocytes) > 1% indicates that a LEFT SHIFT is Present. Laboratory - Chemistry and C hemistry - challengeOrdered By: Yanique Espinosa on 12-02-2024 AST [Catalytic activity/Vol] 28 U/L <32 [facility] MCV (mean corpuscular volume ) determinationOrdered By: Yanique Espinosa on 12-02-2024 MCV (RBC) [Entitic vol] 100.2 fL High 81-99 [facility] Mean corpuscular hemoglobin (MCH) determinationOrdered By: jeffrey Espinosa 12-02-2024 MCH (RBC) [Entitic mass] 32.3 pg High 27.0-32.0 [facility] Mean corpuscular hemoglobin concentration (MCHC) determinationOrdered By: Yanique Espinosa 12-02-2024 MCHC (RBC) [Mass/Vol] 32.2 g/dL 32-36 [facility] Mean platelet volume determi nationOrdered By: Yanique Espinosa on 12-02-2024 Platelet mean volume (Bld) [Entitic vol] 11.4 fL 6.2-12.0 [facility] Monocyte percentageOrdered B y: Yanique Espinosa on 12-02-2024 Monocytes/100 WBC (Bld) 7.4 % 0-10 [facility] Neutrophil percentageOrdered By: Yanique Espinosa on 12-02-2024 Neutrophils/100 WBC (Bld) 53.8 % 47-70 [facility] Nucleated red blood cell per centageOrdered By: Yanique Espinosa on 12-02-2024 Nucleated RBC/100 WBC (Bld) [Ratio] 0 % 0-5 [facility] Platelet countOrdered By: Asha Espinosa on 12-02-2024 Platelets (Bld) [#/Vol] 217 10*3/uL 150-450 [facility] Potassium measurement (mass/ volume)Ordered By: Yanique Espinosa on 12-02-2024 Potassium (Unsp spec) [Mass/Vol] 5.9 mmol/L High 3.3-5.1 [facility] RBC Auto (Bld) [#/Vol]Ordere d By: Yanique Espinosa on 12-02-2024 RBC (Bld) [#/Vol] 4.03 10*6/uL Low 4.2-5.4 [facility] Serum creatinine measurement (mass/volume)Ordered By: Yanique Espinosa on 12-02-2024 Creatinine [Mass/Vol] 0.77 mg/dL 0.70-1.20 [facility] Serum globulin measurementOr dered By: Yanique Espinosa on 12-02-2024 Globulin (S) [Mass/Vol] 2.3 g/dL 2.2-4.2 [facility] Serum glucose measurement (m ass/volume)Ordered By: Yanique Espinosa on 12-02-2024 Glucose [Mass/Vol] 88 mg/dL 70-99 [facility] Serum or plasma alanine bond otransferase (ALT) measurementOrdered By: Yanique Espinosa on 12-02-2024 ALT [Catalytic activity/Vol] 35 U/L <35 [facility] Serum or plasma albumin des urement (mass/volume)Ordered By: Yanique Javaddevin on 12-02-2024 Albumin [Mass/Vol] 4.0 g/dL 3.4-4.8 [facility] Serum or plasma albumin/glob ulin mass ratioOrdered By: Ashalakshmirosettamary Farnsworhtdevin on 12-02-2024 Albumin/Globulin [Mass ratio] 1.7 {ratio} 0.9-2.4 [facility] Serum or plasma alkaline archana sphatase measurementOrdered By: Ashalakshmirosettamary Farnsworthdevin on 12-02-2024 ALP [Catalytic activity/Vol] 72 U/L 35-104 [facility] Serum or plasma calcium des urement (mass/volume)Ordered By: Deamary Farnsworthdevin on 12-02-2024 Calcium [Mass/Vol] 9.3 mg/dL 7.6-11.0 [facility] Serum or plasma urea nitroge n measurement (mass/volume)Ordered By: Ashalakshmineda Javaddevin on 12-02-2024 Urea nitrogen [Mass/Vol] 13 mg/dL 4-19 [facility] Sodium levelOrdered By: Nikunj red Javaddevin on 12-02-2024 Sodium [Moles/Vol] 141 mmol/L 133-145 [facility] TSH DL <= 0.005 mIU/L QnOrde red By: Ashalakshmirosettamary Farnsworthdevin on 12-02-2024 TSH Qn 0.112 uIU/mL Low 0.300-4.200 [facility] Thyroid Stim Hormone (TSH)on 12-02-2024 TSH 0.112 uIU/mL Low 0.300-4.200 [facility] Comment on above: Performed By: #### L 100.0100, L501.9520, L500.4050 ####[facility] [address] [place], [address] Total proteinOrdered By: Fredo valientemary Farnsworthlakhwindermarky on 12-02-2024 Protein [Mass/Vol] 6.3 g/dL 5.9-8.4 [facility] White blood cell (WBC) count Ordered By: Yanique Espinosa on 12-02-2024 WBC (Bld) [#/Vol] 6.4 10*3/uL 4.4-11.0 [facility] Internal Medicine Office Vis iton 11-17-2024 Internal Medicine Office Visit [facility] [address] [place] [address] [place] [address] OFFICE VISIT Date of Service: 11/17/24 MR#: [id number] Acct: [id number] Name: ASHLEY PABON Rep #: [id number] : 1955 Provider: Dr. Yanique mccord MD Age/Sex: 69/F [place] [facility] [place]: Signed Intake Vital Signs 08/06/24 14:31 [...] M FU Chief Complaint: 3 M FU Payroll Services Analyst Required: No Accompanied by: Self Is patient [...] denosumab 60 mg/mL subcutaneous 60 mg subcut [id number] #1 mL 11/17/24 Rx syringe (Prolia) furosemide [...] a 3 month FU. Has no concerns. [facility] Medical History (Updated 11/17/24 @ 10:39 by [...] Chief Complaint: 3 M FU Details: ASHLEY PABON is a 69 F who presents to [...] being unst (more content not included)... Normal [facility] Laboratory - Hematology and Cell countsOrdered By: Yanique Espinosa on 11-17-2024 HbA1c (Bld) [Mass fraction] 5.8 % 4.2-6.3 [facility] Pulmonary Visit Reporton Pulmonary Visit Report [facility] Pul[facility] Medicine of [address] [place] [address] OFFICE VISIT Date of Service: 09/17/24 MR#: [id number] Acct: [id number] Name: ASHLEY PABON Rep #: [id number] : 1955 Provider: Dr. Harley Urbina DO Age/Sex: 69/F [place] [facility] Status: Signed Assessment and Plan Assessment and [...] m fu Chief Complaint: Follow-up chronic conditions Payroll Services Analyst Required: No DME Vendor: Jose Juan Accompanied by: Self Allergies Sulfa (Sulfonamide Antibiotics) [...] denosumab 60 mg/mL subcutaneous 60 mg subcut H2CFJBPL #1 mL 09/17/24 Rx syringe (Prolia) levothyroxine 88 mcg tablet 88 mcg PO QDAY 03/11/24 09/17/24 H istory furosemide 20 mg tablet 20 mg PO QDAY #90 tabs 06/09/24 Rx (more content not included)... Normal [facility] Breast imaging reportOrdered By: Carlos Villareal on 08-21-2024 Study report [facility] Imaging Services [address] [place], [place] [id number] SCRN MAMM (CAD)W/KAMALJIT BILAT MR#: [id number] Acct: [id number] Name: ASHLEY PABON Rep #: [id number] : 1955 F 68 From: Fidel Villareal MD PCP: Dr. Yanique Espinosa MD Status: R EG CLI Study:SCRN MAMM (CAD)W/KAMALJIT BILAT Date of Exa m: 08/21/24 Exam# [id number] Ordering Dr: Marky Espinosa MD EXAM: SCRN [...] be mailed to the patient. Reading Location: [facility] CC: Dr. Yanique Espinosa MD ~ Injection Molding Supervisor: Signed [facility] SCRN MAMM (CAD)W/KAMALJIT BILATo n 08-21-2024 SCRN MAMM (CAD)W/KAMALJIT BILAT [facility] Imaging Services [address] [place] [address] SCRN MAMM (CAD)W/KAMALJIT BILAT MR#: [id number] Acct: [id number] Name: ASHLEY PABON Rep #: [id number] : 1955 F 68 From: Carlos snyder MD PCP: Dr. Yanique Espinosa MD Status: REG CLI Study: SCRN MAMM (CAD)W/KAMALJIT BILAT Date of Exam: 08/07 08/31 Exam# [id number] Ordering Dr: Yanique Espinosa MD EXAM: SCRN [...] be mailed to the patient. Reading Location: [id number] CC: Dr. Yanique Espinosa MD Injection Molding Supervisor: Signed Normal [facility] Internal Medicine Office Vis [facility] 08-06-2024 Internal Medicine Office Visit [facility] [address] [place] [address] [place] [address] OFFICE VISIT Date of Service: 08/06/24 MR#: [id number] Acct: [id number] Name: ASHLEY PABON Rep #: [id number] : 1955 Provider: Dr. Yanique mccord MD Age/Sex: 68/F [place] [facility] [facility] [place] Status: Signed with Addenda ADDENDUM by JAROD [...] M FU Chief Complaint: Follow-up chronic conditions Payroll Services Analyst Required: No Accompanied by: Allergies Sulfa (Sulfonamide [...] denosumab 60 mg/mL subcutaneous 60 mg subcut H0NOGHSV #1 mL 08/06/24 Rx syringe (Prolia) levothyroxine [...] Chief Complaint: Follow-up chronic conditions Details: ASHLEY FERERR (more content not included)... Normal [facility] Laboratory - Hematology and Cell countsOrdered By: Yanique Farnsworthdevin on 08-06-2024 HbA1c (Bld) [Mass fraction] 6.0 % 4.2-6.3 [facility] Basic Metabolic Profile (BMP )on 05-20-2024 BUN/CRE 40.2 RATIO High 10-20 [facility] Comment on above: Performed By: #### L 500.2500 ####[facility] [address] [place], [address] CA,Total 9.3 mg/dL Normal 8.5-10.1 [facility] Comment on above: Performed By: #### L 500.2500 ####[facility] [address] [place], [address] Chloride [Moles/Vol] 110 mmol/L High 98-107 [facility] Comment on above: Performed By: #### L 500.2500 ####[facility] [address] [place], [address] CO2 [Moles/Vol] 30.0 mmol/L Normal 21.0-32.0 [facility] Comment on above: Performed By: #### L 500.2500 ####[facility] [address] [place], [address] Creatinine [Mass/Vol] 0.80 mg/dL Normal 0.55-1.02 [facility] Comment on above: Result Comment: The validity of the calculated GFR GFRAA in patients over 70 years has not been determined. Clinical correlation is essential. Performed By: #### L 500.2500 ####[facility] [address] [place], [address] EST GFR - AA 92 mL/min Normal >60 [facility] Comment on above: Result Comment: Afri can Jordanian GFR Calc Performed By: #### L 500.2500 ####[facility] [address] [place], [address] GAP 2 Low 5-15 [facility] Comment on above: Performed By: #### L 500.2500 ####[facility] [address] [place], [address] GFR/1.73 sq M.predicted among non-blacks MDRD (S/P/Bld) [Vol rate/Area] 76 mL/min/{1.73_m2} Normal >60 [facility] Comment on above: Result Comment: Non- GFR Calc Performed By: #### L 500.2500 ####[facility] [address] [place], [address] Glucose [Mass/Vol] 80 mg/dL Normal 74-106 [facility] Comment on above: Performed By: #### L 500.2500 ####[facility] [address] [place], [address] Potassium [Moles/Vol] 4.4 mmol/L Normal 3.5-5.1 [facility] Comment on above: Performed By: #### L 500.2500 ####[facility] [address] [place], [address] Sodium [Moles/Vol] 142 mmol/L Normal 136-145 [facility] Comment on above: Performed By: #### L 500.2500 ####[facility] [address] [place], [address] Urea nitrogen [Mass/Vol] 32 mg/dL High 7-18 [facility] Comment on above: Performed By: #### L 500.2500 ####[facility] [address] [place], [address] Blood urea nitrogen (BUN)/cr eatinine ratioOrdered By: Rajani Cazares on 05-20-2024 Urea nitrogen/Creatinine [Mass ratio] 40.2 mg/mg High 10-20 [facility] Carbon dioxide measurementOr dered By: Rajani Cazares on 05-20-2024 CO2 [Moles/Vol] 30.0 mmol/L 21.0-32.0 [facility] Chloride measurementOrdered By: Rajani Cazares on 05-20-2024 Chloride [Moles/Vol] 110 mmol/L High 98-107 [facility] Glomerular filtration rate ( GFR) estimationOrdered By: Rajani Cazares on 05-20-2024 GFR/1.73 sq M.predicted among non-blacks MDRD (S/P/Bld) [Vol rate/Area] 76 mL/min/{1.73_m2} >60 [facility] Comment on above: Non- GFR Calc Glucose measurementOrdered B y: Rajani Cazares on 05-20-2024 Glucose [Mass/Vol] 80 mg/dL 74-106 [facility] Potassium measurementOrdered By: Rajani Cazares on 05-20-2024 Potassium [Moles/Vol] 4.4 mmol/L 3.5-5.1 [facility] Serum anion gap measurementO rdered By: Rajani Cazares on 05-20-2024 Anion gap [Moles/Vol] 2 mmol/L Low 5-15 [facility] Serum or plasma calcium des urement (mass/volume)Ordered By: Rajani Cazares on 05-20-2024 Calcium [Mass/Vol] 9.3 mg/dL 8.5-10.1 [facility] Serum or plasma creatinine m easurement (mass/volume)Ordered By: Rajani Cazares on 05-20-2024 Creatinine [Mass/Vol] 0.80 mg/dL 0.55-1.02 [facility] Comment on above: The validity of the calculated GFR & GFRAA in patients over 70 years has not been determined. Clinical correlation is essential. Serum or plasma urea nitroge n measurement (mass/volume)Ordered By: Rajani Cazares on 05-20-2024 Urea nitrogen [Mass/Vol] 32 mg/dL High 7-18 [facility] Sodium levelOrdered By: Ariela Cazares on 05-20-2024 Sodium [Moles/Vol] 142 mmol/L 136-145 [facility] Internal Medicine Office Vis true 05-07-2024 Internal Medicine Office Visit [facility] [address] [place] [address] [address] [place], [place] [address] OFFICE VISIT Date of Service: 05/07/24 MR#: [id number] Acct: [id number] Name: ASHLEY PABON Rep #: [id number] : 1955 Provider: Dr. Yanique mccord MD Age/Sex: 68/F [place] [facility] [place] Status: Signed Intake Vital Signs 11/05/23 13:33 [...] denosumab 60 mg/mL subcutaneous 60 mg subcut F4YQVAEN #1 mL 02/13/24 05/07/24 Rx syringe (Prolia) [...] being clumsiness antibiotics needed for dental appts [facility] Medical History Hyperkalemia Hypertension Abnormal US (ultrasound) [...] Pulmonary embolism DVT (deep venous thrombosis) Arthritis [place] filter in place Asthma History of diabetes [...] episodes. Als (more content not included)... Normal [facility] Aldosterone, Serumon 024 ALDOSTERONE,S 4.1 ng/dL Normal 0.0-30.0 [facility] Comment on above: Order Comment: Test( s) [id number]-Johyfkkbjszxxa developed and its performance characteristicsdetermined by [employer]. It has not been cleared or approvedby the Food and Drug Administration. Result Comment: Perf ormed at: - [facility] [id number] [place]: Niall Du MD, Phone: [phone] Performed By: #### L 501.7300, L501.5800, L500.2500, L3300.1100, L501.7400, L502.0250 ####[facility] [address] [place], [place], [id number] Basic Metabolic Profile (BMP )on 03-18-2024 BUN/CRE 27.0 RATIO High 10-20 [facility] Comment on above: Performed By: #### L 501.7300, L501.5800, L500.2500, L3300.1100, L501.7400, L502.0250 #### [facility] [address] [place], [address] CA,Total 9.5 mg/dL Normal 8.5-10.1 [facility] Comment on above: Performed By: #### L 501.7300, L501.5800, L500.2500, L3300.1100, L501.7400, L502.0250 #### [facility] [address] [place], [address] Chloride [Moles/Vol] 108 mmol/L High 98-107 [facility] Comment on above: Performed By: #### L 501.7300, L501.5800, L500.2500, L3300.1100, L501.7400, L502.0250 #### [facility] [address] [place], [address] CO2 [Moles/Vol] 32.0 mmol/L Normal 21.0-32.0 [facility] Comment on above: Performed By: #### L 501.7300, L501.5800, L500.2500, L3300.1100, L501.7400, L502.0250 #### [facility] [address] [place], [address] Creatinine [Mass/Vol] 0.89 mg/dL Normal 0.55-1.02 [facility] Comment on above: Result Comment: The validity of the calculated GFR GFRAA in patients over 70 years has not been determined. Clinical correlation is essential. Performed By: #### L 501.7300, L501.5800, L500.2500, L3300.1100, L501.7400, L502.0250 #### [facility] [address] [place], [address] EST GFR - AA 81 mL/min Normal >60 [facility] Comment on above: Result Comment: Afri can Jordanian GFR Calc Performed By: #### L 501.7300, L501.5800, L500.2500, L3300.1100, L501.7400, L502.0250 #### [facility] [address] [place], [address] GAP 2 Low 5-15 [facility] Comment on above: Performed By: #### L 501.7300, L501.5800, L500.2500, L3300.1100, L501.7400, L502.0250 #### [facility] [address] [place], [address] GFR/1.73 sq M.predicted among non-blacks MDRD (S/P/Bld) [Vol rate/Area] 67 mL/min/{1.73_m2} Normal >60 [facility] Comment on above: Result Comment: Non- GFR Calc Performed By: #### L 501.7300, L501.5800, L500.2500, L3300.1100, L501.7400, L502.0250 #### [facility] [address] [place], [address] Glucose [Mass/Vol] 95 mg/dL Normal 74-106 [facility] Comment on above: Performed By: #### L 501.7300, L501.5800, L500.2500, L3300.1100, L501.7400, L502.0250 #### [facility] [address] [place], [address] Potassium [Moles/Vol] 4.9 mmol/L Normal 3.5-5.1 [facility] Comment on above: Result Comment: Slig ht Hemolysis, Result may be falsely increased. Performed By: #### L 501.7300, L501.5800, L500.2500, L3300.1100, L501.7400, L502.0250 #### [facility] [address] [place], [address] Sodium [Moles/Vol] 142 mmol/L Normal 136-145 [facility] Comment on above: Performed By: #### L 501.7300, L501.5800, L500.2500, L3300.1100, L501.7400, L502.0250 #### [facility] [address] [place], [address] Urea nitrogen [Mass/Vol] 24 mg/dL High 7-18 [facility] Comment on above: Performed By: #### L 501.7300, L501.5800, L500.2500, L3300.1100, L501.7400, L502.0250 #### [facility] [address] [place], [address] Microalb:Creat Ratio,Random URon 03-18-2024 Creatinine [Mass/Vol] 182.00 mg/dL Normal NO RAN GE EST. [facility] Comment on above: Performed By: #### L 501.7300, L501.5800, L500.2500, L3300.1100, L501.7400, L502.0250 ####[facility] [address] [place], [address] MALB:CRE 16.3 mg/g CRE Normal <30 mg/g CRE [facility] Comment on above: Performed By: #### L 501.7300, L501.5800, L500.2500, L3300.1100, L501.7400, L502.0250 ####[facility] [address] [place], [address] MICROALBUMIN,UR 29.6 mg/L Normal NO RANGE EST. [facility] Comment on above: Performed By: #### L 501.7300, L501.5800, L500.2500, L3300.1100, L501.7400, L502.0250 ####[facility] [address] [place], [address] Osmolality, Serumon 03-18-20 24 OSMOLALITY,SER 318 mOsm/KG High 280-301 [facility] Comment on above: Performed By: #### L 501.7300, L501.5800, L500.2500, L3300.1100, L501.7400, L502.0250 #### [facility] [address] [place], [address] Osmolality, Urineon 03-18-20 24 OSMOLALITY,UR 810 mOsm/KG Normal [facility] Comment on above: Result Comment: Normal Urine Reference Ranges Random: 50 - 1200 mOsm/kg H20 depending on fluid intake Random: >850 mOsm/kg after 12 hour fluid restriction 24 hour: 300 - 900 mOsm/kg H2O Performed By: #### L 501.7300, L501.5800, L500.2500, L3300.1100, L501.7400, L502.0250 #### [facility] [address] [place], [address] Urine Potassiumon 03-18-2024 UR K 82.0 mmol/L Normal Not Establ. [facility] [facility] Comment on above: Performed By: #### L 501.7300, L501.5800, L500.2500, L3300.1100, L501.7400, L502.0250 #### [facility] [address] [place], [place], [address] Pulmonary Visit Reporton Pulmonary Visit Report [facility] [place] 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 She reports that in the next [...] M FU Chief Complaint: FU Chronic Conditions Payroll Services Analyst Required: No DME Vendor: [employer] Accompanied by: Allergies Sulfa (Sulfonamide Antibiotics) [...] PO QDAY #90 (more content not included)... [facility] 12-28-2023 [facility] Telephone (AGGENS3) ASHLEY PABON ([id number]) 1955 F Date Time Provider Department 12/28/23 BLAS BARBA3 During your visit today, we recorded the following information about you: Jossy Han 12/28/2023 9:29 AM Signed Called LM to go over Scheduled Imaging appt and to schedule follow up appt with patientChidi Han. SQL ARCHITECT Allergies As of Date: 12/28/2023 Noted Allergy [...] tension [M62.89] more content not included)... Normal [facility] Qiana 11-23-2023 RAFAELN Telephone (AJITE) ASHLEY PABON ([id number]) 1955 F Date Time Provider Department 11/23/23 SILVA COBB During your visit today, we recorded the following information about you: Begany, Silva David 11/23/2023 3:00 PM Signed Spoke to Kathia in Dr. Espinosa's office. Patient's INRs and warfarin are managed by that office since begin october. Will discharge her from coumadin clinic. Mimi (Cable Reeler)Kofi 11/23/2023 3:02 PM Signed Pharmacy [facility]tico[facility] Clinic Discharge completed at this time. Patient may be re-referred, if deemed appropriate. Kofi Le, Letterer (paste up worker) [facility]acy [facility] Allergies As of Date: [...] lovenox [Z79.01 (more content not included)... Normal [facility] (AJITE[facility] ASHLEY PABON ([id number]) 1955 F Date Time Provider Department 10/26/23 DNIA ANGULO During your visit today, we recorded the following information about you: Dina Angulo [facility] 10/26/2023 1:37 PM Signed [facility] Anticoagulation Episode Summary Anticoagulation Care Providers Provider Role Specialty Phone number Bg Beverly MD Referring Family Medicine [phone] Ashley Pabon is a 68 year old [...] heterozygous (hcc) History of pulmonary 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 (pe) 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 Tesha DinaDavid 11/09/2023 11:38 AM Signed Patient was due to test INR today. Will continue to monitor for results. Follow up in one week if no results received. Dina David Angulo Allergies As of Date: 10/26/2023 Noted Allergy [...] Visit Diagnoses:History of pulmonary embolus (PE) [Z86.711] longterm current use of anticoagulant [Z79.01] Prescriptions as [...] by mouth (more content not included)... Normal [facility] CNCOon 10-05-2023 CNCO Letter Text Normal [facility] CNPNon 09-07-2023 CNPN Telephone (PHAMTE) PEPPERASHLEY Shannan ([id number]) 1955 F Date Time Provider Department 09/07/23 SILVA COBB During your visit today, we recorded the following information about you: Silva Cobb [facility] 09/07/2023 1:43 PM Signed [facility] Anticoagulation Episode Summary Anticoagulation Care Providers Provider Role Specialty Phone number Bg Beverly MD Referring Family Medicine [phone] Ashley Pabon is a 67 year old [...] INR check scheduled on 09/20/2023 Silva Cobb [facility] Clinical Pharmacist, Pharmacy Anticoagulation Clinic Pharmacy Anticoagulation Clinic Pager: [phone]. Janis Ott [facility] 09/20/2023 12:18 PM Signed Patient was due to test INR today. Will continue to monitor for results. Follow up in one week if no results received. Janis Ott [facility] Janis Ott [facility] 09/27/2023 2:42 PM Signed Ashley Pabon was called and reminded to test INR today or as soon as possible. Janis Ott [facility] Janis Ott [facility] 10/04/2023 9:55 AM Signed Ashley Pabon was called, lvmx + MyChart and reminded to test INR today or as soon as possible. Patient added to discharge list Janis Kamara Namrata tae Le ([employer])Kofi 10/05/2023 9:50 AM Signed DISCHARGE No pending home meter results. Letter sent. Updated tracker. Patient will need to either establish care with a [facility] if she responds to our letter. Patient's last OV with referring provider was in 2021 and patient no longer is established with PCP. Kofi Le ([employer]) Allergies As of Date: 09/07/2023 Noted Allergy [...] - diphenhyd/phenyleph/acetam (more content not included)... Normal [facility] CNPNon 08-28-2023 CNPN Telephone (PHAMTE) ASHLEY PABNO ([id number]) 1955 F Date Time Provider Department 08/28/23 SILVA COBB During your visit today, we recorded the following information about you: Silva Cobb [facility] 08/28/2023 10:40 AM Signed [facility] Anticoagulation Episode Summary Anticoagulation Care Providers Provider Role Specialty Phone number Bg Beverly MD Referring Family Medicine [phone] Ashley Pabon is a 67 year old [...] verbalizes understanding of the plan. Silva Cobb [facility] Clinical Pharmacist, Pharmacy Anticoagulation Clinic Pharmacy Anticoagulation Clinic Pager: [phone]. Adriane Cintron tae 09/04/2023 3:00 PM Signed Patient was due to test INR today. Will continue to monitor for results. Follow up in one week if no results received. Adriane Cintron [facility] Allergies As of Date: 08/28/2023 Noted Allergy [...] 12/26/2004 04/14/2013 (more content not included)... Normal [facility] CNPTali 08-14-2023 CNPN Telephone (PHARST) ASHLEY PABON ([id number]) 1955 F Date Time Provider Department 08/14/23 SILVA COBB During your visit today, we recorded the following information about you: Silva Cobb [facility] 08/14/2023 12:15 PM Signed [facility] Anticoagulation Episode Summary Anticoagulation Care Providers Provider Role Specialty Phone number Bg Beverly MD Referring Family Medicine [phone] Ashley Pabon is a 67 year old [...] Pharmacy Anticoagulation Clinic Pharmacy Anticoagulation Clinic Pager: [phone]. Silva Cobb RPh 08/21/2023 3:37 PM Signed [...] 04/14/2013 H (more content not included)... [facility] Basophil percentageOrdered B y: Yanique Espinosa on 08-06-2023 Chloride [Moles/Vol] 105 mmol/L 98-107 [facility] Glucose [Mass/Vol] 84 mg/dL 74-106 [facility] Potassium [Moles/Vol] 4.9 mmol/L 3.5-5.1 [facility] Sodium [Moles/Vol] 141 mmol/L 136-145 [facility] Laboratory - Chemistry and C hemistry - challengeOrdered By: Yanique Espinosa on 08-06-2023 CO2 [Moles/Vol] 31.0 mmol/L 21.0-32.0 [facility] Urea nitrogen/Creatinine [Mass ratio] 29.6 mg/mg 10-20 [facility] - Hematology and Cell countson 08-06-2023 HbA1c (Bld) [Mass fraction] 5.8 % 4.2-6.3 [facility] No Panel InformationOrdered By: Yanique Espinosa on 08-06-2023 Estimated GFR (MDRD) Amer 79 mL/min >60 [facility] Comment on above: GFR Calc Estimated GFR (MDRD) Non-Af Amer 65 mL/min >60 [facility] Comment on above: Non- GFR Calc Serum or plasma calcium des urement (mass/volume)Ordered By: Yanique Espinosa on 08-06-2023 Calcium [Mass/Vol] 9.0 mg/dL 8.5-10.1 [facility] Serum or plasma creatinine m easurement (mass/volume)Ordered By: Yanique Espinosa on 08-06-2023 Creatinine [Mass/Vol] 0.91 mg/dL 0.55-1.02 [facility] Comment on above: The validity of the calculated GFR & GFRAA in patients over 70 years has not been determined. Clinical correlation is essential. Serum or plasma urea nitroge n measurement (mass/volume)Ordered By: Yanique Espinosa on 08-06-2023 Urea nitrogen [Mass/Vol] 27 mg/dL 7-18 [facility] Thin prep Papanicolaou smear with manual screeningOrdered By: Yanique Espinosa on 08-06-2023 Thin prep Papanicolaou smear with manual screening 5 5-15 [facility] CNPNon 07-19-2023 CNPN Telephone (PHAMTE) ASHLEY PABON ([id number]) 1955 F Date Time Provider Department 07/19/23 JANIS OTT During your visit today, we recorded the following information about you: Janis Ott, [facility] 07/19/2023 8:22 AM Signed [facility] Anticoagulation Episode Summary Anticoagulation Care Providers Provider Role Specialty Phone number Bg Beverly MD Referring Family Medicine [phone] Ashley Pabon is a 67 year old [...] heterozygous (hcc) History of pulmonary embolus (pe) longterm current use of anticoagulant Anticoagulation Episode Summary Current INR goal: 2.0-3.0 Assessment: INR result of 2.7 is therapeutic Plan: Current Warfarin Dosing As of 07/19/2023 Full warfarin instructions: 2.5 mg every Tue; 5 mg all other days Left voice message Advised patient to continue current weekly dose as noted above Next home INR check scheduled on 07/26/2023 Janis Ott RP Clinical Pharmacist, Pharmacy Anticoagulation Clinic Pharmacy Anticoagulation Clinic Pager: [phone]. Silva Cobb RPh 07/26/2023 10:50 AM Signed Patient was due to test INR today. Will continue to monitor for results. Follow up in one week if no results received. David Flannery, Janis R, [facility] 08/02/2023 2:20 PM Signed Ashley Pabon was called, lvmx and reminded to test INR today or as soon as possible. Janis Kamara Namrata [facility] Janis Ott, [facility] 08/09/2023 12:11 PM Signed Ashley Pabon was called, lvmx and reminded to test INR today or as soon as possible. Patient added to PAC discharge list. Janis Kamara Namrata [facility] Allergies As of Date: 07/19/2023 Noted Allergy [...] Visit Diagnoses:History of pulmonary embolus (PE) [Z86.711] longterm current use of anticoagulant [Z79.01] Prescriptions as [...] - diphe (more content not included)... 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 Kristy Carrillo [facility] 07/18/2023 10:17 AM Signed Patient was due to test INR today will continue to monitor for results. Kristy Carrillo PharmD [facility] Allergies As of [...] Visit Diagnoses:History of pulmonary embolus (PE) [Z86.711] longterm current use of anticoagulant [Z79.01] Prescriptions as [...] Problem List (more content not included)... Normal [facility] Serum or plasma thyroid stim ulating hormone (TSH) measurement (units/volume)Ordered By: Yanique Espinosa on 06-20-2023 TSH Qn 0.46 uIU/mL 0.358-3.74 [facility] 06-11-2023 [facility] Tele[facility] (PHAMTE) ASHLEY PABON ([id number]) 1955 F Date Time Provider Department 06/11/23 ERICA TEJEDA During your visit today, we recorded the following information about you: Erica Tejeda [facility] 06/11/2023 10:04 AM Signed [facility] Anticoagulation Episode Summary Anticoagulation Care Providers Provider Role Specialty Phone number Bg Beverly MD Referring Family Medicine [phone] Ashley Pabon is a 67 year old [...] instructed to call [facility] at [phone] with any questions or concerns. Erica Tejeda [facility] Clinical Pharmacist, Pharmacy Anticoagulation Clinic Pharmacy Anticoagulation Clinic Pager: [phone] Janis Ott [facility] 06/25/2023 2:22 PM Signed Patient was due to test INR today. Will continue to monitor for results. Follow up in one week if no results received. Janis Ott [facility] Allergies As of Date: 06/11/2023 Noted Allergy [...] Renal ca (more content not included)... Normal [facility]2023 [facility] (BONNY) ASHLEY PABON ([id number]) 1955 F Date Time Provider Department 05/21/23 ERICA TEJEDA During your visit today, we recorded the following information about you: Erica Tejeda [facility] 05/21/2023 11:42 AM Signed [facility] Anticoagulation Episode Summary Anticoagulation Care Providers Provider Role Specialty Phone number Bg Beverly MD Referring Family Medicine [phone] Ashley Pabon is a 67 year old [...] instructed to call [facility] at [phone] with any questions or concerns. Erica Tejeda tae Clinical Pharmacist, Pharmacy Anticoagulation Clinic Pharmacy Anticoagulation Clinic Pager: [phone] Erica Tejeda RPh 06/04/2023 3:49 PM Signed [...] lumbar spine (more content not included)... Normal [facility] Absolute lymphocyte countOrd ered By: Yanique Espinosa on 05-07-2023 Lymphocytes Auto (Unsp spec) [#/Vol] 2.63 10*3/uL 0.83-4.51 [facility] Automated lymphocyte count a s percentage of total leukocytesOrdered By: Nikunjpinckardmary Espinosa on 05-07-2023 Lymphocytes/100 WBC Auto (Unsp spec) 29.9 % 19-41 [facility] Basophil percentageOrdered B y: Yanique Espinosa on 05-07-2023 Basophils/100 WBC (Bld) 1.0 % 0-1 [facility] Chloride [Moles/Vol] 108 mmol/L 98-107 [facility] Eosinophils/100 WBC (Bld) 1.9 % 0-5 [facility] Glucose [Mass/Vol] 115 mg/dL 74-106 [facility] Comment on above: Fasting Glucose resu lt from 100 to 125 mg/dL suggests IMPAIRED HOMEOSTASIS per A.D.A. criteria. Hemoglobin (Bld) [Mass/Vol] 13.8 g/dL 12.0-15.0 [facility] Monocytes/100 WBC (Bld) 6.3 % 0-10 [facility] Neutrophils (Bld) [#/Vol] 5.3 10*3/uL 2.0-7.7 [facility] Neutrophils/100 WBC (Bld) 60.6 % 47-70 [facility] Potassium [Moles/Vol] 4.9 mmol/L 3.5-5.1 [facility] Sodium [Moles/Vol] 139 mmol/L 136-145 [facility] WBC (Bld) [#/Vol] 8.8 10*3/uL 4.4-11.0 [facility] Determination of erythrocyte mean corpuscular volume (MCV)Ordered By: Yanique Espinosa on 05-07-2023 MCV (RBC) [Entitic vol] 97.8 fL 81-99 [facility] Erythrocyte distribution wid th ratioOrdered By: [facility] Javadmarky on 05-07-2023 Erythrocyte distribution width (RBC) [Ratio] 13.5 % 11.6-14.6 [facility] Erythrocyte distribution wid th standard deviationOrdered By: [facility] Javadmarky on 05-07-2023 Erythrocyte distribution width (RBC) [Entitic vol] 48.3 fL 35.1-43.9 [facility] Hematocrit Auto (Bld) [Volum e fraction]Ordered By: [facility] Javadmarky on 05-07-2023 Hematocrit (Bld) [Volume fraction] 43.7 % 37-47 [facility] Immature granulocytes/100 WB C Auto (Bld)Ordered By: [facility] Javadmarky on 05-07-2023 Immature granulocytes/100 WBC (Bld) 0.300 % 0.0-0.9 [facility] Comment on above: IG% - Immature Granu locytes (promyelocytes, myelocytes and metamyelocytes) > 1% indicates that a LEFT SHIFT is Present. Laboratory - Chemistry and C hemistry - challengeOrdered By: [facility] Farnsworthmarky on 05-07-2023 CO2 [Moles/Vol] 28.0 mmol/L 21.0-32.0 [facility] Urea nitrogen/Creatinine [Mass ratio] 40.4 mg/mg 10-20 [facility] - Hematology and Cell countson 05-07-2023 HbA1c (Bld) [Mass fraction] 6.0 % 4.2-6.3 [facility] - Hematology and Cell countsOrdered By: [facility] Javadmarky on 05-07-2023 MCH (RBC) [Entitic mass] 30.9 pg 27.0-32.0 [facility] MCHC (RBC) [Mass/Vol] 31.6 g/dL 32-36 [facility] Nucleated RBC/100 WBC (Bld) [Ratio] 0 % 0-5 [facility] Platelets (Bld) [#/Vol] 321 10*3/uL 150-450 [facility] No Panel InformationOrdered By: Yanique Espinosa on 05-07-2023 Estimated GFR (MDRD) Amer 68 mL/min >60 [facility] Comment on above: GFR Calc Estimated GFR (MDRD) Non-Af Amer 56 mL/min >60 [facility] Comment on above: Non- GFR Calc Platelet mean volume Mu-Ec ker (Bld) [Entitic vol]Ordered By: Yanique Espinosa on 05-07-2023 Platelet mean volume (Bld) [Entitic vol] 11.3 fL 6.2-12.0 [facility] RBC Auto (Bld) [#/Vol]Ordere d By: Yanique Espinosa on 05-07-2023 RBC (Bld) [#/Vol] 4.47 10*6/uL 4.2-5.4 [facility] Serum or plasma calcium des urement (mass/volume)Ordered By: Yanique Espinosa on 05-07-2023 Calcium [Mass/Vol] 9.6 mg/dL 8.5-10.1 [facility] Serum or plasma creatinine m easurement (mass/volume)Ordered By: Yanique Espinosa on 05-07-2023 Creatinine [Mass/Vol] 1.04 mg/dL 0.55-1.02 [facility] Comment on above: The validity of the calculated GFR & GFRAA in patients over 70 years has not been determined. Clinical correlation is essential. Serum or plasma thyroid stim ulating hormone (TSH) measurement (units/volume)Ordered By: Yanique Espinosa on 05-07-2023 TSH Qn 0.24 uIU/mL 0.358-3.74 [facility] Serum or plasma urea nitroge n measurement (mass/volume)Ordered By: Yanique Espinosa on 05-07-2023 Urea nitrogen [Mass/Vol] 42 mg/dL 7-18 [facility] Thin prep Papanicolaou smear with manual screeningOrdered By: Yanique Espinosa on 05-07-2023 Thin prep Papanicolaou smear with manual screening 3 5-15 [facility] CNPNon 05-02-2023 CNPN Telephone (PHAMTE) ASHLEY PABON ([id number]) 1955 F Date Time Provider Department 05/02/23 KRISTY CARRILLO PHAMTE During your visit today, we recorded the following information about you: Kristy Carrillo tae 05/02/2023 1:43 PM Signed [facility] Anticoagulation Episode Summary Anticoagulation Care Providers Provider Role Specialty Phone number Bg Beverly MD Referring Family Medicine [phone] Ashley Pabon is a 67 year old [...] heterozygous (hcc) 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 Kristy Carrillo [facility] Clinical Pharmacist, Pharmacy Anticoagulation Clinic Pharmacy Anticoagulation Clinic Pager: [phone]. 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 (more content not included)... Normal [facility] 04-12-2023 [facility] Telephone (AJITE) PEPPERASHLEY Shannan ([id number]) 1955 F Date Time Provider Department 04/12/23 JANIS OTT During your visit today, we recorded the following information about you: Janis Ott, [facility] 04/12/2023 1:34 PM Signed [facility] Anticoagulation Episode Summary Anticoagulation Care Providers Provider Role Specialty Phone number Bg Beverly MD Referring Family Medicine [phone] Ashley Pabon is a 67 year old [...] heterozygous (hcc) 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 Janis Ott [facility] Clinical Pharmacist, Pharmacy Anticoagulation Clinic Pharmacy Anticoagulation Clinic Pager: [phone]. Janis Ott [facility] 04/26/2023 4:30 PM Signed Patient was due to test INR today. Will continue to monitor for results. Follow up in one week if no results received. 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 Normal [facility] 03-28-2023 CNPN Telephone (PHARMN) ASHLEY PABON ([id number]) 1955 F Date Time Provider Department 03/28/23 PHARMACIST PHARMN During your visit today, we recorded the following information about you: Mimi ([employer])Kofi 03/28/2023 11:57 AM Signed PATIENT CALL Patient called call center regarding refill Patient requested a medication refill. Patient's pharmacy is [facility]. Refill Medication: warfarin 5 mg tablet(s) Refill request sent to pharmacist Yes PT INR (no units) Date Value 03/03/2022 1.5 biotel 02/03/2022 3.7 07/06/2021 2.4 (biotel) INR Home CoaguChek (no units) Date Value 03/22/2023 3.0 03/08/2023 4.9 02/19/2023 2.4 Kofi Le ([employer]) Tawny Garcia [facility] 03/28/2023 12:16 PM Signed The following approved medication requests have been transmitted electronically. Requested Prescriptions Signed Prescriptions Disp Refills warfarin (COUMADIN) 5 mg tablet 90 tablet 3 Sig: Take 5mg (1 tab) by mouth daily or as directed by Coumadin Clinic Authorizing Provider: BG BEVERLY Ordering User: TAWNY GARCIA [facility] Janis Ott [facility] 04/05/2023 4:46 PM Signed Patient due to test INR today. Will continue to monitor for results. Janis Ott [facility] Allergies As of Date: 03/28/2023 Noted Allergy [...] for Visit: Refill Request [94] Order(s):Order #: [id number] Prescriptions as of 04/05/2023 - warfarin (COUMADIN) [...] of chester (more content not included)... Normal [facility] CNPNon 03-22-2023 CNPN Telephone (PHAMTE) ASHLEY PABON ([id number]) 1955 F Date Time Provider Department 03/22/23 JANIS OTT During your visit today, we recorded the following information about you: Janis Ott, [facility] 03/22/2023 11:10 AM Signed [facility] [facility] Anticoagulation Episode Summary Anticoagulation Care Providers Provider Role Specialty Phone number Bg Beverly MD Referring Family Medicine [phone] Ashley Pabon is a 67 year old [...] heterozygous (hcc) History of pulmonary embolus (pe) longterm current use of anticoagulant Anticoagulation Episode Summary [...] Patient denies need for refills. Janis Ott [facility] Clinical Pharmacist, Pharmacy Anticoagulation Clinic Pharmacy Anticoagulation Clinic Pager: [phone]. Allergies As of Date: 03/22/2023 Noted Allergy [...] Visit Diagnoses:History of pulmonary embolus (PE) [Z86.711] longterm current use of anticoagulant [Z79.01] Prescriptions as [...] MEDICAL HIST (more content not included)... Normal [facility] Qiana 03-08-2023 REECE Telephone (PHAAZE) ASHLEY PABON ([id number]) 1955 F Date Time Provider Department 03/08/23 JANIS OTT During your visit today, we recorded the following information about you: Janis Ott, [facility] 03/08/2023 11:32 AM Signed [facility] Anticoagulation Episode Summary Anticoagulation Care Providers Provider Role Specialty Phone number Bg Beverly MD Referring Family Medicine [phone] Ashley Pabon is a 67 year old [...] heterozygous (hcc) History of pulmonary embolus (pe) longterm current use of anticoagulant Anticoagulation Episode Summary [...] Patient denies need for refills. Janis Ott [facility] Clinical Pharmacist, Pharmacy Anticoagulation Clinic Pharmacy Anticoagulation Clinic Pager: [phone]. 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 Normal [facility] PEPPERASHLEY Shannan ([id number]) 1955 F Date Time Provider Department 02/19/23 ERICA TEJEDA During your visit today, we recorded the following information about you: Erica Tejeda RPh 02/19/2023 1:15 PM Signed [facility] Anticoagulation Episode Summary Anticoagulation Care Providers Provider Role Specialty Phone number Bg Beverly MD Referring Family Medicine [phone] Ashley Campbell Pepper is a 67 year old year old [...] instructed to call [facility] at [phone] with any questions or concerns. Erica Tejeda RP Clinical Pharmacist, Pharmacy Anticoagulation Clinic Pharmacy Anticoagulation Clinic Pager: [phone] Silva Cobb RPh 03/05/2023 2:33 PM Signed Patient due to test INR today. Will continue to monitor for results. Silva Cobb RPh Allergies As of Date: 02/19/2023 Noted Allergy [...] Primary localize (more content not included)... Normal [facility] CNPNon 02-08-2023 CNPN Telephone (PHAMTE) ASHLEY PABON ([id number]) 1955 F Date Time Provider Department 02/08/23 JANIS OTT During your visit today, we recorded the following information about you: Janis Ott, [facility] 02/08/2023 12:26 PM Signed [facility] Anticoagulation Episode Summary Anticoagulation Care Providers Provider Role Specialty Phone number Bg Beverly MD Referring Family Medicine [phone] Ashley Pabon is a 67 year old [...] heterozygous (hcc) History of pulmonary embolus (pe) longterm current use of anticoagulant Anticoagulation Episode Summary [...] INR check scheduled on 02/15/2023 Janis Ott [facility] Clinical Pharmacist, Pharmacy Anticoagulation Clinic Pharmacy Anticoagulation Clinic Pager: [phone]. Janis Ott [facility] 02/15/2023 5:28 PM Signed Patient due to test INR today. Will continue to monitor for results. 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 Normal [facility] Laboratory - Hematology and Cell countson 02-05-2023 HbA1c (Bld) [Mass fraction] 6.0 % 4.2-6.3 [facility] 02-01-2023 CNPN Telephone (PHAMTE) ASHLEY PABON ([id number]) 1955 F Date Time Provider Department 02/01/23 ADRIANE CINTRON PHAMTE During your visit today, we recorded the following information about you: Adriane Cintron [facility] 02/01/2023 9:40 AM Signed [facility] Anticoagulation Episode Summary Anticoagulation Care Providers Provider Role Specialty Phone number Bg Beverly MD Referring Family Medicine [phone] Ashley Pabon is a 67 year old [...] Patient denies need for refills. Adriane Cintron [facility] Clinical Pharmacist, Pharmacy Anticoagulation Clinic Pharmacy Anticoagulation Clinic Pager: [phone]. Allergies As of Date: 02/01/2023 Noted Allergy [...] [M10.9] 02/19/2006 (more content not included)... Normal [facility] [place] 01-19-2023 RAFAELN Telephone (PHAPHILLIPE) ASHLEY PABON ([id number]) 1955 F Date Time Provider Department 01/19/23 MARVIN ROBERTSON During your visit today, we recorded the following information about you: Marvin Robertson RPh 01/19/2023 1:36 PM Signed Patient due to test INR today. Will continue to monitor for results. 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 Normal [facility] Basophil percentageOrdered B y: Yanique Espinosa on 01-10-2023 Chloride [Moles/Vol] 108 mmol/L 98-107 [facility] Glucose [Mass/Vol] 99 mg/dL 74-106 [facility] Potassium [Moles/Vol] 4.6 mmol/L 3.5-5.1 [facility] Sodium [Moles/Vol] 142 mmol/L 136-145 [facility] Laboratory - Chemistry and C hemistry - challengeOrdered By: Yanique Espinosa on 01-10-2023 CO2 [Moles/Vol] 30.0 mmol/L 21.0-32.0 [facility] Urea nitrogen/Creatinine [Mass ratio] 30.0 mg/mg 01-26 [facility] No Panel InformationOrdered By: Yanique Espinosa on 01-10-2023 Estimated GFR (MDRD) Amer 77 mL/min >60 [facility] Comment on above: GFR Calc Estimated GFR (MDRD) Non-Af Amer 63 mL/min >60 [facility] Comment on above: Non- GFR Calc Serum or plasma calcium des urement (mass/volume)Ordered By: Yanique Espinosa on 01-10-2023 Calcium [Mass/Vol] 9.4 mg/dL 8.5-10.1 [facility] Serum or plasma creatinine m easurement (mass/volume)Ordered By: Yanique Espinosa on 01-10-2023 Creatinine [Mass/Vol] 0.93 mg/dL 0.55-1.02 [facility] Comment on above: The validity of the calculated GFR & GFRAA in patients over 70 years has not been determined. Clinical correlation is essential. Serum or plasma urea nitroge n measurement (mass/volume)Ordered By: Yanique Espinosa on 01-10-2023 Urea nitrogen [Mass/Vol] 28 mg/dL 7-18 [facility] Thin prep Papanicolaou smear with manual screeningOrdered By: Yanique Espinosa on 01-10-2023 Thin prep Papanicolaou smear with manual screening 4 5-15 [facility] CNPNon 01-05-2023 CNPN Telephone (PHAMTE) ASHLEY PABON ([id number]) 1955 F Date Time Provider Department 01/05/23 MARVIN ROBERTSON During your visit today, we recorded the following information about you: Marvin Robertson [facility] 01/05/2023 4:43 PM Signed [facility]tico[facility] Anticoagulation Episode Summary Anticoagulation Care Providers Provider Role Specialty Phone number Bg Beverly MD Referring Family Medicine [phone] Ashley Pabon is a 67 year old [...] heterozygous (hcc) History of pulmonary embolus (pe) longterm current use of anticoagulant Anticoagulation Episode Summary [...] Patient denies need for refills. Marvin Robertson [facility] Clinical Pharmacist, Pharmacy Anticoagulation Clinic Pharmacy Anticoagulation Clinic Pager: [phone]. 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 Problem (more content not included)... Normal [facility] 12-20-2022 CNPN Telephone (PHAMTE) ASHLEY PABON ([id number]) 1955 F Date Time Provider Department 12/20/22 KRISTY CARRILLO During your visit today, we recorded the following information about you: Kristy Carrillo RPh 12/20/2022 3:03 PM Signed [facility]ticoagulation [facility] Anticoagulation Episode Summary Anticoagulation Care Providers Provider Role Specialty Phone number Bg Beverly MD Referring Family Medicine [phone] Ashley Pabon is a 67 year old [...] Pharmacy Anticoagulation Clinic Pharmacy Anticoagulation Clinic Pager: [phone]. Kristy Carrillo RPh 01/03/2023 11:49 AM Signed Patient was due to test INR today will continue to monitor for results. 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 Normal [facility] [place] 12-12-2022 CNPN Telephone (PHAMTE) ASHLEY PABON ([id number]) 1955 F Date Time Provider Department 12/12/22 SILVA COBB During your visit today, we recorded the following information about you: Silva Cobb [facility] 12/12/2022 9:17 AM Signed The patient was called to discuss recent INR test results. A voice message was left on patient's Home telephone voice mail. The patient was advised to call the Coumadin Clinic at [phone] and hold x1 (12/12). PT INR (no units) Date Value 03/03/2022 1.5 biotel 02/03/2022 3.7 07/06/2021 2.4 (biotel) INR Home CoaguChek (no units) Date Value 12/11/2022 4.8 11/27/2022 2.3 11/22/2022 6.4 Silva Cobb, PharmD,CACP Nga Cartagena RN 12/12/2022 12:53 PM Signed Patient returned the call and can be reached at [phone]. Linsey Cartagena RN Pharmacy Anticoagulation Clinic Silva Cobb [facility] 12/12/2022 1:05 PM Signed [facility] Ambulatory [facility]ticoagulation [facility] Anticoagulation Episode Summary Anticoagulation Care Providers Provider Role Specialty Phone number Bg Beverly MD Referring Family Medicine [phone] Ashley Pabon is a 67 year old [...] verbalizes understanding of the plan. Silva Cobb [facility] Clinical Pharmacist, Pharmacy Anticoagulation Clinic Pharmacy Anticoagulation Clinic Pager: [phone]. Allergies As of Date: 12/12/2022 Noted Allergy [...] - Cholecalciferol, (more content not included)... Normal [facility] MRI PANC/ZAYRA WO/W IVCONon MRI PANC/ZAYRA WO/W [...] coil, axial STIR, T1 weighted in- and kmz-yl-yotji and axial and coronal HASTE (multslice MRCP) [...] Stable right renal cortical scarring. Renal cysts. Injection Molding Supervisor: PSYCHIATRICWendi Transcribe Date/Time: Dec 07 2022 3:51P Dictated by : KRIS GLOVER MD This examination was interpreted and the report reviewed and electronically signed by: KRIS GLOVER MD on Dec 07 2022 4:13PM EST [id number] Normal [facility] CNPNon 11-27-2022 CNPN Telephone (PHAMTE) ASHLEY PABON ([id number]) 1955 F Date Time Provider Department 11/27/22 ERICA TEJEDA During your visit today, we recorded the following information about you: Erica Tejeda RPh 11/27/2022 2:11 PM Signed [facility] Amb[facility] Pharm[facility] Anticoagulation [facility] Anticoagulation Episode Summary Anticoagulation Care Providers Provider Role Specialty Phone number Bg Beverly MD Referring Family Medicine [phone] Ashley Pabon is a 67 year old [...] instructed to call [facility] at [phone] with any questions or concerns. 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 Normal [facility] Absolute lymphocyte countOrd ered By: Yanique Espinosa on 11-03-2022 Lymphocytes Auto (Unsp spec) [#/Vol] 2.85 10*3/uL 0.83-4.51 [facility] Basophil percentageOrdered B y: Yanique Espinosa on 11-03-2022 Basophils/100 WBC (Bld) 1.0 % 0-1 [facility] Bilirubin [Mass/Vol] 0.30 mg/dL 0.20-1.00 [facility] Comment on above: For patients on eltr ombopag therapy, use of Dimension [place] TBIL is not recommended. Chloride [Moles/Vol] 107 mmol/L 98-107 [facility] Cholesterol [Mass/Vol] 189 mg/dL <200 [facility] Comment on above: <200 mg/dL Desirable 200-240 mg/dL Borderline >240 mg/dL High Risk Eosinophils/100 WBC (Bld) 2.1 % 0-5 [facility] Glucose [Mass/Vol] 97 mg/dL 74-106 [facility] Neutrophils (Bld) [#/Vol] 4.9 10*3/uL 2.0-7.7 [facility] Neutrophils/100 WBC (Bld) 56.4 % 47-70 [facility] Potassium [Moles/Vol] 5.2 mmol/L 3.5-5.1 [facility] Protein [Mass/Vol] 7.0 g/dL 6.4-8.2 [facility] Sodium [Moles/Vol] 142 mmol/L 136-145 [facility] Triglyceride [Mass/Vol] 125 mg/dL <199 [facility] Comment on above: The drugs N-Acetylcy steine and Metamizole may falsely depress this assay.Serum Triglycerides Reference Interval Normal <150 mg/dL Borderline high 150 - 199 mg/dL High 200 - 499 mg/dL Very High > or = 500 mg/dL WBC (Bld) [#/Vol] 8.7 10*3/uL 4.4-11.0 [facility] Blood erythrocytes count (nu mber/volume)Ordered By: Yanique Espinosa on 11-03-2022 RBC (Bld) [#/Vol] 4.53 10*6/uL 4.2-5.4 [facility] Blood hemoglobin measurement (mass/volume)Ordered By: Yanique Espinosa on 11-03-2022 Hemoglobin (Bld) [Mass/Vol] 13.8 g/dL 12.0-15.0 [facility] Blood lymphocytes/100 leukoc ytesOrdered By: Yanique Espinosa on 11-03-2022 Lymphocytes/100 WBC (Bld) 32.6 % 19-41 [facility] Blood monocytes/100 leukocyt esOrdered By: Yanique Espinosa on 11-03-2022 Monocytes/100 WBC (Bld) 7.7 % 0-10 [facility] Blood platelet mean volumeOr dered By: Yanique Espinosa on 11-03-2022 Platelet mean volume (Bld) [Entitic vol] 10.8 fL 6.2-12.0 [facility] Determination of erythrocyte mean corpuscular volume (MCV)Ordered By: Yanique Espinosa on 11-03-2022 MCV (RBC) [Entitic vol] 97.8 fL 81-99 [facility] Hematocrit Auto (Bld) [Volum e fraction]Ordered By: Yanique Espinosa on 11-03-2022 Hematocrit (Bld) [Volume fraction] 44.3 % 37-47 [facility] Laboratory - Chemistry and C hemistry - challengeOrdered By: Yanique Espinosa on 11-03-2022 ALP [Catalytic activity/Vol] 84 U/L 45-117 [facility] ALT [Catalytic activity/Vol] 30 U/L 13-56 [facility] CO2 [Moles/Vol] 30.0 mmol/L 21.0-32.0 [facility] Globulin (S) [Mass/Vol] 3.5 g/dL 2.2-4.2 [facility] Urea nitrogen/Creatinine [Mass ratio] 26.4 mg/mg 10-20 [facility] Laboratory - Hematology and Cell countsOrdered By: Yanique Espinosa on 11-03-2022 Erythrocyte distribution width (RBC) [Entitic vol] 51.2 fL 35.1-43.9 [facility] Erythrocyte distribution width (RBC) [Ratio] 14.2 % 11.6-14.6 [facility] Immature granulocytes/100 WBC (Bld) 0.200 % 0.0-0.9 [facility] Comment on above: IG% - Immature Granu locytes (promyelocytes, myelocytes and metamyelocytes) > 1% indicates that a LEFT SHIFT is Present. MCH (RBC) [Entitic mass] 30.5 pg 27.0-32.0 [facility] Nucleated RBC/100 WBC (Bld) [Ratio] 0 % 0-5 [facility] MCHC Auto (RBC) [Mass/Vol]Or dered By: Yanique Espinosa on 11-03-2022 MCHC (RBC) [Mass/Vol] 31.2 g/dL 32-36 [facility] No Panel InformationOrdered By: Yanique Espinosa on 11-03-2022 Estimated GFR (MDRD) Amer 66 mL/min >60 [facility] Comment on above: GFR Calc Estimated GFR (MDRD) Non-Af Amer 55 mL/min >60 [facility] Comment on above: Non- GFR Calc Thyroid Stimulating Hormone (TSH) 0.85 uIU/mL 0.358-3.74 [facility] Vitamin D 25-Hydroxy 75.8 ng/mL [facility] Comment on above: Vitamin D 25(OH) Sta tus Range Deficiency <20 ng/mL (50nmol/L) Insufficiency 20 - 30 ng/mL (50 - 75 nmol/L) Sufficiency 30 - 100 ng/mL (75 - 250 nmol/L) Toxicity >100 ng/mL (>250 nmol/L) Platelets bldOrdered By: Fredo Espinosa on 11-03-2022 Platelets (Bld) [#/Vol] 284 10*3/uL 150-450 [facility] Serum or plasma albumin des urement (mass/volume)Ordered By: Yanique Espinosa on 11-03-2022 Albumin [Mass/Vol] 3.5 g/dL 3.2-5.0 [facility] Serum or plasma albumin/glob ulin mass ratioOrdered By: Yanique Espinosa on 11-03-2022 Albumin/Globulin [Mass ratio] 1.0 {ratio} 0.9-2.4 [facility] Serum or plasma calcium des urement (mass/volume)Ordered By: Yanique Espinosa on 11-03-2022 Calcium [Mass/Vol] 9.5 mg/dL 8.5-10.1 [facility] Serum or plasma cholesterol in HDL measurement (mass/volume)Ordered By: Yanique Espinosa on 11-03-2022 Cholesterol in HDL [Mass/Vol] 51 mg/dL >40 [facility] Comment on above: The drugs N-Acetylcy steine and Metamizole may falsely depress this assay. Reference Range HDL <40 mg/dL Low HDL Cholesterol HDL >or= 60 mg/dL High HDL Cholesterol Serum or plasma cholesterol in VLDL measurement (mass/volume)Ordered By: Yanique Espinosa on 11-03-2022 Cholesterol in VLDL [Mass/Vol] 25 mg/dL 5-40 [facility] Serum or plasma creatinine m easurement (mass/volume)Ordered By: Yanique Espinosa on 11-03-2022 Creatinine [Mass/Vol] 1.06 mg/dL 0.55-1.02 [facility] Comment on above: The validity of the calculated GFR & GFRAA in patients over 70 years has not been determined. Clinical correlation is essential. Serum or plasma low density lipoprotein (LDL) cholesterol measurement (mass/volume)Ordered By: Yaniqeu Espinosa on 11-03-2022 Cholesterol in LDL [Mass/Vol] 113 mg/dL 0-130 [facility] Serum or plasma urea nitroge n measurement (mass/volume)Ordered By: Yanique Espinosa on 11-03-2022 Urea nitrogen [Mass/Vol] 28 mg/dL 7-18 [facility] Serum or plasma uric acid me asurement (mass/volume)Ordered By: Yanique Espinosa on 11-03-2022 Urate [Mass/Vol] 4.7 mg/dL 2.6-6.0 [facility] Comment on above: The drugs N-Acetylcy steine and Metamizole may falsely depress this assay. Thin prep Papanicolaou smear with manual screeningOrdered By: Yanique Espinosa on 11-03-2022 Thin prep Papanicolaou smear with manual screening 20 U/L 15-37 [facility] Thin prep Papanicolaou smear with manual screening 5 5-15 [facility] Whole blood hemoglobin A1c/t otal hemoglobin ratio (mass fraction)Ordered By: Yanique Espinosa on 11-03-2022 HbA1c (Bld) [Mass fraction] 6.0 % 3.8-5.6 [facility] Comment on above: Normal < 5.7 % Predi abetic 5.7 - 6.4 % Diabetic >or= 6.5 % Please note range changes. VITAMIN B6 [CCL]on Vitamin B6 Plasma 20.3 nmol/L Normal 20.0-125.0 [facility] Comment on above: Result Comment: [...] developed and its performance characteristics determined by [facility]. It has not been cleared or approved by the [place] Food and Drug Administration. This test was performed in a CLIA certified laboratory and is intended for clinical purposes. Performed By: [facility] [address] [place] [address] Store Receiving Clerk: Henri Schaefer MD, PhD Test results should be interpreted with caution. Assay was performed at client's request on a sub-optimal specimen. [facility] [employer] [address] [place] [address] Ashkan Caputo III, M.D. [id number] Performed By: #### 2 [id number] #### [address] [address] HEPATITIS C AB IA W/CONFIRM [CCL]on 08-04-2022 REFLEX HCQPCR? NO Normal [facility] Comment on above: Performed By: #### 2 [id number] #### [place] [id number] Hepatitis C Ab IA Negative Normal Negative [facility] Comment on above: Result Comment: The result suggests no evidence of active infection with Hepatitis C virus. Should recent infection be suspected, repeat testing may be considered 4-6 weeks after this draw. [facility] [employer] [address] [place] [address] Ashkan Caputo III, M.D. [id number] Performed By: #### 2 [id number] #### [address] [address] HGB A1C [CCL]on 08-04-2022 HbA1c (Bld) [Mass fraction] 5.9 % High 4.3-5.6 [facility] Comment on above: Result Comment: [place] Diabetes Association guidelines indicate that patients with HgbA1c in the range 5.7-6.4% are at increased risk for development of diabetes, and intervention by lifestyle modification may be beneficial. HgbA1c greater or equal to 6.5% is considered diagnostic of diabetes. Performed By: #### 2 26426 #### [address] [address] Hemoglobin A0 123 mg/dL Normal [facility] Comment on above: Result Comment: eAG: (Estimated average glucose) is a calculated value from HgbA1c and is outbound sales representative of the average blood glucose level in the last 2-3 month period. [facility] [employer] [address] [place] [address] Ashkan Caputo III, M.D. [id number] Performed By: #### 2 [address]402 #### [address] [address] VITAMIN D, 1,25 - DIHYDROXY [CCL]on 08-04-2022 Vit D,1,25 Dihydroxy 70.1 pg/mL Normal 19.9-79.3 [facility] Comment on above: Result Comment: [facility] [employer] [address] [place] [address] Ashkan Caputo III, M.D. [id number] Performed By: #### 2 [address]306 #### [address] [address] CBC + DIFFon 08-02-2022 Baso # 0.10 x10EE3/UL Normal 0.00 - 0.10 [facility] Comment on above: Performed By: #### 2 [address]7066 #### [address] [address] Basophils/100 WBC (Bld) 1.0 % Normal 0.0 - 2.0 [facility] Comment on above: Performed By: #### 2 66480 #### [facility],[address] [place] [address] CBC + DIFF Normal [facility] Comment on above: Result Comment: CBC- COMPLETE BLOOD COUNT Performed By: #### 2 65583 #### [facility],[address] [place] [address] EO # 0.20 x10EE3/UL Normal 0.00 - 0.50 [facility] Comment on above: Performed By: #### 2 57490 #### [facility],[address] [place] [address] Eosinophils/100 WBC (Bld) 2.9 % Normal 0.0 - 7.0 [facility] Comment on above: Performed By: #### 2 38561 #### [facility],[address] [place] [address] Erythrocyte distribution width (RBC) [Ratio] 14.4 % Normal 12.0 - 15.6 [facility] Comment on above: Performed By: #### 2 10621 #### [facility],[address] [place], [place] [id number] Hematocrit (Bld) [Volume fraction] 44.9 % Normal 34.0 - 46.0 [facility] Comment on above: Performed By: #### 2 43973 #### [facility],[address] [place] [address] Hemoglobin (Bld) [Mass/Vol] 14.4 g/dL Normal 12.0 - 16.0 [facility] Comment on above: Performed By: #### 2 11826 #### [facility],[address] [place] [address] Lymph # 2.20 x10EE3/UL Normal 0.80 - 2.80 [facility] Comment on above: Performed By: #### 2 12251 #### [facility],[address] [place] [address] 52280 Lymphocytes/100 WBC (Bld) 30.2 % Normal 20.0 - 45.0 [facility] Comment on above: Performed By: #### 2 85544 #### [facility],[address] [place] [address] MANUAL DIFF N/A Normal [facility] Comment on above: Performed By: #### 2 62789 #### [facility],[address] [place] [address] MCH (RBC) [Entitic mass] 30 pg Normal 27 - 33 [facility] Comment on above: Performed By: #### 2 20178 #### [facility],[address] [place] [address] MCHC 32 X10 3 Normal 32 - 36 [facility] Comment on above: Performed By: #### 2 54265 #### [place] [address] MCV (RBC) [Entitic vol] 95 fL Normal 80 - 99 [facility] Comment on above: Performed By: #### 2 84088 #### [facility],[address] [place] [address] Cross # 0.60 x10EE3/UL Normal 0.20 - 1.00 [facility] Comment on above: Performed By: #### 2 71939 #### [facility],[address] [place] [address] MONOS % 8.8 % Normal 0.0 - 10.0 [facility] Comment on above: Performed By: #### 2 69022 #### [facility],[address] [place], [place] [id number] Morphology Melvin (Bld) [Interp] N/A Normal [facility] Comment on above: Performed By: #### 2 71292 #### [facility],[address] [place] [address] Neut # 4.10 x10EE3/UL Normal 1.50 - 7.10 [facility] Comment on above: Performed By: #### 2 85543 #### [address] [address] Neutrophils/100 WBC (Bld) 57.1 % Normal 46.0 - 76.0 [facility] Comment on above: Performed By: #### 2 61170 #### [facility],[address] [place], [place] [id number] PLATELET 272 x10EE3/UL Normal 150 - 450 [facility] Comment on above: Performed By: #### 2 27886 #### [place] [address] Platelet mean volume (Bld) [Entitic vol] 10.1 fL Normal 6.6 - 10.5 [facility] Comment on above: Result Comment: AUTO MATED DIFFERENTIAL Performed By: #### 2 58423 #### [place] [address] RBC 4.75 x 10EE6/UL Normal 4.10 - 5.30 [facility] Comment on above: Performed By: #### 2 64848 #### [place] [id number] WBC 7.2 x 10EE3/UL Normal 4.5 - 10.8 [facility] Comment on above: Performed By: #### 2 76819 #### [place] [id number] CMP with eGFRon 08-02-2022 AGE 66 years Normal [facility] Comment on above: Performed By: #### 2 17393 #### [place] [id number] Albumin [Mass/Vol] 3.9 g/dL Normal 3.4 - 5.0 [facility] Comment on above: Performed By: #### 2 52768 #### [place] [id number] Albumin/Globulin [Mass ratio] 1.3 {ratio} Normal 0.9 - 1.6 [facility] Comment on above: Performed By: #### 2 89481 #### [facility],[address] [place] [address]997 ALK PHOS 85 U/L Normal 46 - 116 [facility] Comment on above: Performed By: #### 2 79313 #### [facility],[address] [place] [address] 58146 ALT [Catalytic activity/Vol] 24 U/L Normal 14 - 59 [facility] Comment on above: Performed By: #### 2 78289 #### [facility],[address] [place] [address] Anion gap [Moles/Vol] 12 mmol/L Normal 10 - 20 [facility] Comment on above: Performed By: #### 2 26798 #### [facility],[address] [place] [address] AST [Catalytic activity/Vol] 22 U/L Normal 13 - 39 [facility] Comment on above: Performed By: #### 2 33173 #### [facility],[address] [place] [address] 18354 B/C RATIO 23 ratio Normal 0 - 30 [facility] Comment on above: Performed By: #### 2 52828 #### [facility],[address] [place] [address] 35736 Bilirubin [Mass/Vol] 0.3 mg/dL Normal 0.2 - 1.0 [facility] Comment on above: Performed By: #### 2 12898 #### [address] [address] Calcium [Mass/Vol] 9.2 mg/dL Normal 8.5 - 10.1 [facility] Comment on above: Performed By: #### 2 95176 #### [facility],[address] [place] [address]1043 Chloride [Moles/Vol] 104 mmol/L Normal 98 - 107 [facility] Comment on above: Performed By: #### 2 15856 #### [facility],[address] [place], [place] [phone] CMP with eGFR Normal [facility] Comment on above: Result Comment: COMP REHENSIVE METABOLIC PANEL Performed By: #### 2 30691 #### [facility],[address] [place] [address] CO2 [Moles/Vol] 32.1 mmol/L High 21.0 - 32.0 [facility] Comment on above: Performed By: #### 2 86343 #### [facility],[address] [place] [address] Creatinine [Mass/Vol] 0.94 mg/dL Normal 0.55 - 1.02 [facility] Comment on above: Performed By: #### 2 36444 #### [facility],[address] [place] [address] eGFR 59 ML/MINUTE Low 60 - 999 [facility] Comment on above: Performed By: #### 2 53203 #### [facility],[address] [place], [place] [id number] GFR/1.73 sq M.predicted among non-blacks MDRD (S/P/Bld) [Vol rate/Area] mL/min/{1.73_m2} Normal 60 - 999 [facility] Comment on above: Result Comment: ACCO RDING TO THE NATIONAL KIDNEY DISEASE EDUCATION PROGRAM(NKDE), A NORMAL eGFR IS A VALUE GREATER THAN OR EQUAL TO 60 ML/MIN/1.73 SQ METERS. CHRONIC KIDNEY DISEASE: <60mL/MIN/1.73 SQ METERS KIDNEY FAILURE: <15mL/MIN/1.73 SQ METERS THIS TEST SHOULD ONLY BE USED FOR PATIENTS 18 YEARS OF AGE AND OLDER. Performed By: #### 2 93477 #### [facility],[address] [place], [place] [phone] Globulin (S) [Mass/Vol] 3.0 g/dL Normal 1.5 - 3.8 [facility] Comment on above: Performed By: #### 2 97549 #### [facility],[address] [place] [address]19 Glucose [Mass/Vol] 89 mg/dL Normal 74 - 106 [facility] Comment on above: Performed By: #### 2 05450 #### [facility],[address] [place] [address] Potassium [Moles/Vol] 5.0 mmol/L Normal 3.5 - 5.1 [facility] Comment on above: Performed By: #### 2 04709 #### [facility],[address] [place] [address]17 Protein [Mass/Vol] 6.9 g/dL Normal 6.4 - 8.2 [facility] Comment on above: Performed By: #### 2 49648 #### [facility],[address] [place] [address] 24685 Sodium [Moles/Vol] 143 mmol/L Normal 136 - 145 [facility] Comment on above: Performed By: #### 2 16736 #### [facility],[address] [place] [address] 62006 Urea nitrogen [Mass/Vol] 22 mg/dL High 7 - 18 [facility] Comment on above: Performed By: #### 2 15835 #### [facility],[address] [place] [address]2917 FERRITINon 08-02-2022 Ferritin [Mass/Vol] 73 ng/mL Normal 8 - 388 [facility] Comment on above: Performed By: #### 2 22579 #### [facility],[address] [place] [address] 76270 FOLATESon 08-02-2022 FOLATES 14.8 ng/ml Normal 8.6 - 58.9 [facility] Comment on above: Performed By: #### 2 44351 #### [facility],[address] [place] [address] 17154 IRONon 08-02-2022 Iron [Mass/Vol] 125 ug/dL Normal 50 - 170 [facility] Comment on above: Performed By: #### 2 28073 #### [facility],[address] [place] [address] 33700 LIPID PROFILEon 08-02-2022 Cholesterol [Mass/Vol] 188 mg/dL Normal 0 - 240 [facility] Comment on above: Performed By: #### 2 37713 #### [facility],[address] [place] [address]9668 Cholesterol in HDL [Mass/Vol] 50 mg/dL Normal 40 - 60 [facility] Comment on above: Performed By: #### 2 59975 #### [facility],[address] [place] [address] 41082 Cholesterol in LDL [Mass/Vol] 113 mg/dL Normal 0 - 129 [facility] Comment on above: Performed By: #### 2 20287 #### [facility],[address] [place] [address] 075[address] Cholesterol.total/Chol esterol in HDL [Mass ratio] 3.8 {ratio} Normal 0.0 - 5.0 [facility] Comment on above: Performed By: #### 2 75138 #### [facility],[address] [place] [address] 43060 Lipid 1996 panel Normal [facility] Comment on above: Result Comment: LIPI D PROFILE Performed By: #### 2 34960 #### [facility],[address] [place] [address] 59457 Triglyceride [Mass/Vol] 124 mg/dL Normal 0 - 150 [facility] Comment on above: Performed By: #### 2 82595 #### [facility],[address] [place] [address] MAGNESIUMon 08-02-2022 Magnesium [Mass/Vol] 2.0 mg/dL Normal 1.8 - 2.4 [facility] Comment on above: Performed By: #### 2 49137 #### [facility],[address] [place] [address] 13973 T4-FREE (FREE THYROXINE)on 0 08-02-2022 Free T4 [Mass/Vol] 1.09 ng/dL Normal 0.76 - 1.46 [facility] Comment on above: Result Comment: P otential of falsely elevated results when biotin concentrations are > 10 ng/mL. Performed By: #### 2 15900 #### [facility],[address] [place] [address] TSHon 08-02-2022 TSH Qn 0.17 m[IU]/L Low 0.35 - 3.74 [facility] Comment on above: Performed By: #### 2 71810 #### [facility],[address] [place] [address]321 URIC ACIDon 08-02-2022 Urate [Mass/Vol] 3.9 mg/dL Normal 2.6 - 6.0 [facility] Comment on above: Performed By: #### 2 16357 #### [facility],[address] [place] [address] 09186 VITAMIN B-12on 08-02-2022 Cobalamin (Vitamin B12) [Mass/Vol] 607 pg/mL Normal 193 - 986 [facility] Comment on above: Performed By: #### 2 28287 #### [facility],[address] [place] [address] 10729 INR FINGERSTICK B/Oon 2021 INR Coag (Bld) [Relative time] 1.5 biotel [facility] INR FINGERSTICK B/Oon 2021 INR Coag (Bld) [Relative time] 3.7 {INR} [facility] INR FINGERSTICK B/Oon 2021 INR Coag (Bld) [Relative time] 2.4 (biotnataliia) [facility] Quality Check No [facility] INR (SUKI)on 02-04-2020 INR Coag (BldC) [Relative time] 1.9 Abnormal 2.0 - 3.0 [facility] INR Coag (BldC) [Relative ti me]on 02-04-2020 Interpretation and review of laboratory results Abnormal [facility] No Panel Informationon 02-03 IMPRESSION: 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 Healing postsurgical changes right humerus. Injection Molding Supervisor: YVETTE Transcribe Date/Time: Feb 04 2020 1:33P Dictated by : KRISTIN BLANCO MD This examination was interpreted and the report reviewed and electronically signed by: KRISTIN BLANCO MD on Feb 04 2020 1:36PM [facility] DIVISION OF RADIOLOGY Radiology Study observation (narrative) [facility] No Panel InformationOrdered By: [facility] Provider on 02-04-2020 [facility] XR Humerus - right AP and La [...] AP/LAT RT -- RIGHT with 3 (accession [id number]), 2 (accession [id number]) views on 3 (accession [id number]), 2 (accession [id number]) images Comparison: 12/18/2019 RESULT: The reverse right total shoulder arthroplasty is unchanged in position alignment. No evidence of loosening or failure. Acromioclavicular joint is maintained. The lateral plate and screw fixation transfixing the mid humeral fracture is unchanged in position alignment; there is progressive callus formation without complete healing. No new fracture identified. Adjacent ribs and lungs are unremarkable. DIVISION OF RADIOLOGY Provider, [facility] - 02/04/2020 * * *Final Report* * [...] AP/LAT RT -- RIGHT with 3 (accession [id number]), 2 (accession [id number]) views on 3 (accession [id number]), 2 (accession [id number]) images Comparison: 12/18/2019 RESULT: The reverse right [...] apparent complication. Healing postsurgical changes right humerus. Injection Molding Supervisor: YVETTE Transcribe Date/Time: Feb 04 2020 1:33P Dictated by : KRISTIN BLANCO MD This examination was interpreted and the report reviewed and electronically signed by: KRISTIN BLANCO MD on Feb 04 2020 1:36PM [facility] XR Shoulder - right 3 Viewso [...] AP/LAT RT -- RIGHT with 3 (accession [id number]), 2 (accession [id number]) views on 3 (accession [id number]), 2 (accession [id number]) images Comparison: 12/18/2019 RESULT: The reverse right total shoulder arthroplasty is unchanged in position alignment. No evidence of loosening or failure. Acromioclavicular joint is maintained. The lateral plate and screw fixation transfixing the mid humeral fracture is unchanged in position alignment; there is progressive callus formation without complete healing. No new fracture identified. Adjacent ribs and lungs are unremarkable. DIVISION OF RADIOLOGY Provider, [facility] - 02/04/2020 * * *Final Report* * [...] AP/LAT RT -- RIGHT with 3 (accession [id number]), 2 (accession [id number]) views on 3 (accession [id number]), 2 (accession [id number]) images Comparison: 12/18/2019 RESULT: The reverse right [...] apparent complication. Healing postsurgical changes right humerus. Injection Molding Supervisor: YVETTE Transcribe Date/Time: Feb 04 2020 1:33P Dictated by : KRISTIN BLANCO MD This examination was interpreted and the report reviewed and electronically signed by: KRISTIN BLANCO MD on Feb 04 2020 1:36PM [facility] Vital Signs Date Time Vital Sign Value Performing Clinician Richard orellana 11-17-2024 10:02-0400 Body height 162.[address] Yanique Espinosa MD Work Phone: [facility] 11-17-2024 10:02-0400 Body mass index (BMI) [Ratio] 36.6 kg/m2 Dr. Yanique Espinosa MD Work Phone: [facility] 11-17-2024 10:02-0400 Body temperature 97.4 [degF] Dr. Yanique Espinosa MD Work Phone: [facility] 11-17-2024 10:02-0400 Body weight 96.[address] Yanique Espinosa MD Work Phone: [facility] 11-17-2024 10:02-0400 Diastolic blood pressure 58 mm[Hg] Dr. Yanique Espinosa MD Work Phone: [facility] 11-17-2024 10:02-0400 Heart rate 63 /min Dr. Yanique Espinosa MD Work Phone: [facility] 11-17-2024 10:02-0400 Respiratory rate 16 /min Dr. Yanique Espinosa MD Work Phone: [facility] 11-17-2024 10:02-0400 SaO2% (BldA) [Mass fraction] 94 % Dr. Yanique Espinosa MD Work Phone: [facility] 11-17-2024 10:02-0400 Systolic blood pressure 108 mm[Hg] Dr. Yanique Espinosa MD Work Phone: [facility] 09-17-2024 08:45-0400 Body mass index (BMI) [Ratio] 38.7 kg/m2 Dr. Yanique Espinosa MD Work Phone: [facility] 09-17-2024 08:45-0400 Body temperature 97.4 [degF] Dr. Yanique Espinosa MD Work Phone: [facility] 09-17-2024 08:45-0400 Body weight 102.[address] Yanique Espinosa MD Work Phone: [facility] 09-17-2024 08:45-0400 Diastolic blood pressure 64 mm[Hg] Dr. Yanique Espinosa MD Work Phone: [facility] 09-17-2024 08:45-0400 Heart rate 70 /min Dr. Yanique Espinosa MD Work Phone: [facility] 09-17-2024 08:45-0400 Inhaled oxygen flow rate 2 L/min Dr. Yanique Espinosa MD Work Phone: [facility] 09-17-2024 08:45-0400 Respiratory rate 20 /min Dr. Yanique Espinosa MD Work Phone: [facility] 09-17-2024 08:45-0400 SaO2% (BldA) [Mass fraction] 97 % Dr. Yanique Espinosa MD Work Phone: [facility] 09-17-2024 08:45-0400 Systolic blood pressure 116 mm[Hg] Dr. Yanique Espinosa MD Work Phone: [facility] 08-06-2024 14:31-0400 Body height 162.[address] Yanique Espinosa MD Work Phone: [facility] 08-06-2024 14:31-0400 Body mass index (BMI) [Ratio] 37.8 kg/m2 Dr. Yanique Espinosa MD Work Phone: [facility] 08-06-2024 14:31-0400 Body temperature 97 [degF] Dr. Yanique Espinosa MD Work Phone: [facility] 08-06-2024 14:31-0400 Body weight 100.[address] Yanique Espinosa MD Work Phone: [facility] 08-06-2024 14:31-0400 Diastolic blood pressure 78 mm[Hg] Dr. Yanique Espinosa MD Work Phone: [facility] 08-06-2024 14:31-0400 Heart rate 67 /min Dr. Yanique Espinosa MD Work Phone: [facility] 08-06-2024 14:31-0400 Respiratory rate 16 /min Dr. Yanique Espinosa MD Work Phone: [facility] 08-06-2024 14:31-0400 SaO2% (BldA) [Mass fraction] 67 % Dr. Yanique Espinosa MD Work Phone: [facility] 08-06-2024 14:31-0400 Systolic blood pressure 138 mm[Hg] Dr. Yanique Espinosa MD Work Phone: [facility] 05-07-2024 09:13-0500 Body mass index (BMI) [Ratio] 38.7 kg/m2 Dr. Yanique Espinosa MD Work Phone: [facility] 05-07-2024 09:13-0500 Body temperature 96.8 [degF] Dr. Yanique Espinosa MD Work Phone: [facility] 05-07-2024 09:13-0500 Body weight 102.[address] Yanique Espinosa MD Work Phone: [facility] 05-07-2024 09:13-0500 Diastolic blood pressure 62 mm[Hg] Dr. Yanique Espinosa MD Work Phone: [facility] 05-07-2024 09:13-0500 Heart rate 67 /min Dr. Yanique Espinosa MD Work Phone: [facility] 05-07-2024 09:13-0500 Respiratory rate 14 /min Dr. Yanique Espinosa MD Work Phone: [facility] 05-07-2024 09:13-0500 SaO2% (BldA) [Mass fraction] 98 % Dr. Yanique Espinosa MD Work Phone: [facility] 05-07-2024 09:13-0500 Systolic blood pressure 110 mm[Hg] Dr. Yanique Espinosa MD Work Phone: [facility] 08-06-2023 13:26-0400 Body height 162.[address] Sabas Beverly Work Phone: [facility] 08-06-2023 13:26-0400 Body mass index (BMI) [Ratio] 39.3 kg/m2 Dr. Sabas Beverly Work Phone: [facility] 08-06-2023 13:26-0400 Body temperature 98.9 [degF] Dr. Sabas Beverly Work Phone: [phone] [place] [address] 08-06-2023 13:26-0400 Body weight 103.[address] Sabas Beverly Work Phone: [facility] 08-06-2023 13:26-0400 Diastolic blood pressure 70 mm[Hg] Dr. Sabas Beverly Work Phone: [facility] 08-06-2023 13:26-0400 Heart rate 77 /min Dr. Sabas Beverly Work Phone: [facility] 08-06-2023 13:26-0400 Inhaled oxygen flow rate 2 L/min Dr. Sabas Beverly Work Phone: [facility] 08-06-2023 13:26-0400 Respiratory rate 16 /min Dr. Sabas Beverly Work Phone: [facility] 08-06-2023 13:26-0400 SaO2% (BldA) [Mass fraction] 97 % Dr. Sabas Beverly Work Phone: [facility] 08-06-2023 13:26-0400 Systolic blood pressure 112 mm[Hg] Dr. Sabas Beverly Work Phone: [facility] 05-07-2023 13:46-0500 Body height 162.[address] Yanique Espinosa Work Phone: [facility] 05-07-2023 13:46-0500 Body mass index (BMI) [Ratio] 38.7 kg/m2 Dr. Yanique Espinosa Work Phone: [facility] 05-07-2023 13:46-0500 Body temperature 98.5 [degF] Dr. Yanique Espinosa Work Phone: [facility] 05-07-2023 13:46-0500 Body weight 102.[address] Yanique Espinosa Work Phone: [facility] 05-07-2023 13:46-0500 Diastolic blood pressure 72 mm[Hg] Dr. Yanique Espinosa Work Phone: [facility] 05-07-2023 13:46-0500 Heart rate 75 /min Dr. Yanique Espinosa Work Phone: [facility] 05-07-2023 13:46-0500 Inhaled oxygen flow rate 2 L/min Dr. Yanique Espinosa Work Phone: [facility] 05-07-2023 13:46-0500 Respiratory rate 16 /min Dr. Yanique Espinosa Work Phone: [facility] 05-07-2023 13:46-0500 SaO2% (BldA) [Mass fraction] 96 % Dr. Yanique Espinosa Work Phone: [facility] 05-07-2023 13:46-0500 Systolic blood pressure 100 mm[Hg] Dr. Yanique Espinosa Work Phone: [facility] 04-10-2023 07:55-0500 Body mass index (BMI) [Ratio] 39.9 kg/m2 Dr. Yanique Espinosa Work Phone: [facility] 04-10-2023 07:55-0500 Body temperature 97.3 [degF] Dr. Yanique Espinosa Work Phone: [facility] 04-10-2023 07:55-0500 Body weight 105.[address] Yanique Espinosa Work Phone: [facility] 04-10-2023 07:55-0500 Diastolic blood pressure 62 mm[Hg] Dr. Yanique Espinosa Work Phone: [facility] 04-10-2023 07:55-0500 Heart rate 59 /min Dr. Yanique Espinosa Work Phone: [facility] 04-10-2023 07:55-0500 Respiratory rate 20 /min Dr. Yanique Espinosa Work Phone: [facility] 04-10-2023 07:55-0500 SaO2% (BldA) [Mass fraction] 99 % Dr. Yanique Espinosa Work Phone: [facility] 04-10-2023 07:55-0500 Systolic blood pressure 127 mm[Hg] Dr. Yanique Espinosa Work Phone: [facility] 02-08-2023 12:50-0400 Body height 162.[address] Yanique Espinosa Work Phone: [facility] 02-08-2023 12:50-0400 Body weight 106.[address] Yanique Espinosa Work Phone: [facility] 02-08-2023 12:50-0400 Heart rate 63 /min Dr. Yanique Espinosa Work Phone: [facility] 02-08-2023 12:50-0400 Inhaled oxygen flow rate 2 L/min Dr. Yanique Espinosa Work Phone: [facility] 02-08-2023 12:50-0400 SaO2% (BldA) [Mass fraction] 94 % Dr. Yanique Espinosa Work Phone: [facility] 02-05-2023 10:26-0400 Body mass index (BMI) [Ratio] 40.3 kg/m2 Dr. Yanique Espinosa Work Phone: [facility] 02-05-2023 10:26-0400 Body temperature 97.3 [degF] Dr. Yanique Espinosa Work Phone: [facility] 02-05-2023 10:26-0400 Body weight 106.[address] Yanique Espinosa Work Phone: [facility] 02-05-2023 10:26-0400 Diastolic blood pressure 80 mm[Hg] Dr. Yanique Espinosa Work Phone: [facility] 02-05-2023 10:26-0400 Heart rate 70 /min Dr. Yanique Espinosa Work Phone: [facility] 02-05-2023 10:26-0400 Respiratory rate 16 /min Dr. Yanique Espinosa Work Phone: [facility] 02-05-2023 10:26-0400 SaO2% (BldA) [Mass fraction] 97 % Dr. Yanique Espinosa Work Phone: [facility] 02-05-2023 10:26-0400 Systolic blood pressure 128 mm[Hg] Dr. Yanique Espinosa Work Phone: [facility] 02-05-2023 08:02-0400 Body mass index (BMI) [Ratio] 40.3 kg/m2 Dr. Yanique Espinosa Work Phone: [facility] 02-05-2023 08:02-0400 Body temperature 97.4 [degF] Dr. Yanique Espinosa Work Phone: [facility] 02-05-2023 08:02-0400 Body weight 106.[address] Yanique Espinosa Work Phone: [facility] 02-05-2023 08:02-0400 Diastolic blood pressure 73 mm[Hg] Dr. Yanique Espinosa Work Phone: [facility] 02-05-2023 08:02-0400 Heart rate 74 /min Dr. Yanique Espinosa Work Phone: [facility] 02-05-2023 08:02-0400 Respiratory rate 15 /min Dr. Yanique Espinosa Work Phone: [facility] 02-05-2023 08:02-0400 SaO2% (BldA) [Mass fraction] 97 % Dr. Yanique Espinosa Work Phone: [facility] 02-05-2023 08:02-0400 Systolic blood pressure 118 mm[Hg] Dr. Yanique Espinosa Work Phone: [facility] 11-03-2022 14:45-0400 Body height 161.[address] Yanique Espinosa Work Phone: [facility] 11-03-2022 14:45-0400 Body mass index (BMI) [Ratio] 41.7 kg/m2 Dr. Yanique Espinosa Work Phone: [facility] 11-03-2022 14:45-0400 Body temperature 96.7 [degF] Dr. Yanique Espinosa Work Phone: [facility] 11-03-2022 14:45-0400 Body weight 108.[address] Yanique Espinosa Work Phone: [facility] 11-03-2022 14:45-0400 Diastolic blood pressure 76 mm[Hg] Dr. Yanique Espinosa Work Phone: [facility] 11-03-2022 14:45-0400 Heart rate 78 /min Dr. Yanique Espinosa Work Phone: [facility] 11-03-2022 14:45-0400 Respiratory rate 18 /min Dr. Yanique Espinosa Work Phone: [facility] 11-03-2022 14:45-0400 SaO2% (BldA) [Mass fraction] 96 % Dr. Yanique Espinosa Work Phone: [facility] 11-03-2022 14:45-0400 Systolic blood pressure 118 mm[Hg] Dr. Yanique Espinosa Work Phone: [facility] Encounters Encounter Date Encounter Type Care Provider Facility Start: 02-25-2025 [facility] Start: 02-04-2025 End: 02-04-20[facility] [place] Start: 02-02-2025 End: 02-02-2025 ambulatory [facility] Facility:[facility] Start: 12-26-2024 End: 12-26-[address] Yanique Espinosa MD Work Phone: -[facility] Start: 12-26-2024 End: 12-26-[address] Yanique Espinosa MD -[facility] Work Phone: Start: 12-26-2024 End: 12-26-2024 ambulatory Yanique Espinosa Facility:[facility] Start: 12-12-2024 Non-patient / Non-visit Dr. Dorothea GONZALEZ -[facility] Work Phone: Start: 12-12-[address] Vicente Espinosa MD -Cat Scan [facility] Work Phone: Start: 12-12-2024 ambulatory Yanique Decker ty:[facility] Start: 12-02-2024 End: 12-02-[address] Yanique Espinosa MD Work Phone: -[facility] Start: 12-02-2024 End: 12-02-[address] Yanique Espinosa MD -[facility] Work Phone: Start: 12-02-2024 End: 12-02-2024 ambulatory Yanique Espinosa Facility:[facility] Start: 11-17-2024 End: 11-17-[address] Yanique Espinosa MD -[facility] Work Phone: Start: 11-17-2024 End: 11-17-[address] Yanique Espinosa MD Work Phone: -[facility] Start: 09-17-2024 End: 09-17-[address] Harley Urbina DO -[facility] Work Phone: Start: 09-17-2024 End: 09-17-[address] Yanique Espinosa MD Work Phone: [facility] Work Phone: Start: 08-21-2024 End: 08-21-[address] Yanique Espinosa MD Work Phone: [facility] Work Phone: Start: 08-21-2024 End: 08-21-[address] Yanique Espinosa MD -Outpatient Breast Imaging Work Phone: Start: 08-21-2024 End: 08-21-2024 ambulatory Yanique Espinosa Facility:[facility] Start: 08-06-2024 End: 08-06-[address] Yanique Espinosa MD -[facility] Work Phone: Start: 08-06-2024 End: 08-06-[address] Yanique Espinosa MD [facility] Start: 08-06-2024 End: 08-06-2024 ambulatory Yanique Espinosa [place] [place] Start: 05-20-2024 End: 05-20-[address] Rajani Cazares DO -Laboratory [facility] 3rd Flr Start: 05-20-2024 End: 05-20-2024 [facility] Start: 05-07-2024 End: 05-07-[address] Yanqiue Espinosa MD -[facility] Work Phone: Start: 05-07-2024 End: 05-07-2024 [facility] [place] Start: 03-18-2024 End: 03-18-2024 ambulatory Rajani Cazares Facility:[facility] Start: 03-11-2024 End: 03-11-2024 ambulatory Glenys Kulkarni NP Facility[place] [place] Start: 12-28-2023 End: 12-28-2023 Telephone encounter Blas Barba MD Work Phone: [facility] Start: 11-23-2023 Telephone encounter Silva Jordyn RPh P harm[facility] Amb[facility] Comment on above: PAC TRANSFER OF CARE Start: 10-26-2023 Telephone encounter Dina Angulo [facility] Ambulatory [facility] Comment on above: Anticoagulation Tele phone Fu Start: 09-07-2023 Telephone encounter Silva Cobb RPh [facility] Start: 08-28-2023 Telephone encounter Silva Cobb RPh [facility] Comment on above: Anticoagulation Tele phone Fu (Home INR result) Start: 08-14-2023 Telephone encounter Silva Cobb [facility] Comment on above: Anticoagulation Tele phone Fu (Home INR result) Start: 08-14-[address] Sabas Beverly Work Phone: [facility] Work Phone: Start: 08-06-2023 End: 08-06-[address] Sabas Beverly Work Phone: [facility] Work Phone: Start: 08-06-2023 End: 08-06-[address] Sabas Beverly Work Phone: [facility] Work Phone: Start: 07-19-2023 Telephone encounter Janis Ott [facility] Ambulatory [facility] Comment on above: Anticoagulation Tele phone Fu (Home INR) Start: 07-12-2023 End: 07-12-[address] Sabas Beverly Work Phone: [facility] Work Phone: Start: 07-11-2023 Telephone encounter Marvin Robertson [facility] Ambulatory [facility] Comment on above: Anticoagulation Tele phone Fu (INR Home Test Result) Start: 06-20-2023 End: 06-20-[address] Yanique Espinosa Work Phone: [facility] Work Phone: Start: 06-20-2023 End: 06-20-[address] Yanique Espinosa Work Phone: [facility]-Laboratory, [facility] Start: 06-12-2023 End: 06-12-[address] Yanique Espinosa Work Phone: [facility] Work Phone: Start: 06-12-2023 End: 06-12-[address] Yanique Espinosa Work Phone: [facility]-Outpatient Bone Densitometry Work Phone: Start: 06-11-2023 Telephone encounter [facility] Comment on above: Anticoagulation Tele phone Fu (Home INR Result ) Start: 05-21-2023 Telephone encounter [facility] Comment on above: Anticoagulation Tele phone Fu (Home INR Result ) Start: 05-07-2023 End: 05-07-[address] Yanique Espinosa Work Phone: [facility] Work Phone: Start: 05-07-2023 End: 05-07-[address] Yanique Espinosa Work Phone: [facility] Work Phone: Start: 04-10-2023 End: 04-10-[address] Yanique Espinosa Work Phone: [facility] Work Phone: Start: 03-28-2023 Telephone encounter Pharmacist [facility] Comment on above: Refill Request Start: 03-22-2023 Telephone encounter Janis Ott [facility] Ambulatory [facility] Comment on above: Anticoagulation Tele phone Fu (Home INR) Start: 03-12-2023 Non-patient / Non-visit Dr. Asha Espinosa Work Phone: [facility] Start: 03-12-2023 End: 03-12-[address] Yanique Espinosa Work Phone: [facility] Work Phone: Start: 03-12-2023 End: 03-12-[address] Yanique Espinosa Work Phone: [facility]-Cardiovascular Services Work Phone: Start: 03-08-2023 Telephone encounter Janis Ott [facility] Comment on above: Anticoagulation Tele phone Fu (Home INR) Start: 02-21-2023 End: 02-21-[address] Yanique Espinosa Work Phone: [facility] Work Phone: Start: 02-21-2023 End: 02-21-[address] Yanique Espinosa Work Phone: [facility]-Outpatient Breast Imaging Work Phone: Start: 02-19-2023 Telephone encounter [facility] Comment on above: Anticoagulation Tele phone Fu (Home INR Result ) Start: 02-12-2023 [facility] Comment on above: Population Health Na vigation Outreach (HCC) Start: 02-09-2023 Non-patient / Non-visit Dr. Asha Espinosa Work Phone: [facility] Start: 02-08-2023 End: 02-08-[address] Yanique Espinosa Work Phone: [facility] Work Phone: Start: 02-08-2023 End: 02-08-[address] [facility] Work Phone: Start: 02-07-2023 Non-patient / Non-visit Dr. Asha Espinosa Work Phone: [facility] Start: 02-06-2023 End: 02-06-[address] Yanique Espinosa Work Phone: [facility] Work Phone: Start: 02-06-2023 End: 02-06-[address] Yanique [facility]spinosa [facility] Work Phone: Start: 02-05-2023 End: 02-05-[address] Yanique Espinosa Work Phone: [facility] Work Phone: Start: 02-05-2023 End: 02-05-[address] Yanique Espinosa Work Phone: [facility] [place] Work Phone: Start: 02-01-2023 Telephone encounter Adriane Miguel [facility] Ambulatory [facility] Comment on above: Anticoagulation Tele phone Fu (Home INR) Start: 01-19-2023 Telephone encounter Marvin Marcelo [facility] harm[facility] Ambulatory [facility] Comment on above: Anticoagulation Tele phone Fu Start: 01-10-2023 End: 01-10-[address] Yanique Espinosa Work Phone: [facility] Work Phone: Start: 01-05-2023 Telephone encounter Marvin Marcelo [facility] harm[facility] Ambulatory [facility] Comment on above: Anticoagulation Tele phone Fu (INR Home Test Result) Start: 12-20-2022 Telephone encounter [facility] Comment on above: Anticoagulation Tele phone Fu (Home INR result ) Start: 12-13-2022 End: 12-13-2022 Phys/qhp telephone evaluation 11-20 min Blas Barba MD Work Phone: [facility] Comment on above: IPMN (intraductal pa pillary mucinous neoplasm) (Primary Dx); Body mass index (BMI) 40.0-44.9, adult (HCC) Start: 12-12-2022 Telephone encounter Silva Jordyn [facility] Ambulatory [facility] Comment on above: Anticoagulation Tele phone Fu (Home INR result) Start: 12-06-2022 End: 12-06-2022 ambulatory NOAMAN ALI Facility:[facility] Start: 12-06-2022 End: 12-06-2022 Subsequent hospital visit by physician Mri [facility] (I-Stat/1.5t) Work Phone: Radiology Comment on above: IPMN (intraductal pa pillary mucinous neoplasm) [D49.0] Start: 11-27-2022 Telephone encounter [facility] Amb[facility] Comment on above: Anticoagulation Tele phone Fu (Home INR Result ) Start: 11-22-2022 Telephone encounter Pharmacist [facility] Comment on above: Anticoagulation Tele phone Fu Start: 11-15-2022 End: 11-15-[address] Yanique Espinosa Work Phone: [facility] Work Phone: Start: 11-15-2022 End: 11-15-[address] Yanique Espinosa Work Phone: [facility]-Sleep Lab Work Phone: Start: 11-10-2022 Telephone encounter Marvin Robertson RPh P [facility] Amb[facility] Comment on above: Anticoagulation Tele phone Fu Start: 11-03-[address] Marky Espinosa Work Phone: [facility] Start: 11-03-2022 End: 11-03-[address] Yanique Espinosa Work Phone: [facility] Work Phone: Start: 11-03-2022 End: 11-03-[address] Yanique Espinosa Work Phone: [facility]-Laboratory, [facility] Start: 11-03-2022 End: 11-03-[address] Yanique Espinosa Work Phone: [facility] Work Phone: Start: 10-02-2022 Telephone encounter [facility] Comment on above: Anticoagulation Tele phone Fu (Home INR Result ) Start: 09-12-2022 Telephone encounter Silva Cobb RPh [facility] Comment on above: Anticoagulation Tele phone Fu (Home INR ) Start: 08-21-2022 Telephone encounter [facility] Comment on above: Anticoagulation Tele phone Fu (Home INR Result ) Start: 08-02-2022 End: 08-02-2022 [facility] Start: 08-01-2022 Telephone encounter Silva Cobb h [facility] Amb[facility] Comment on above: Anticoagulation Tele phone Fu (Home INR result) Start: 07-13-2022 Telephone encounter Janis Ott [facility] Ambulatory [facility] Comment on above: Anticoagulation Tele phone Fu (Home INR) Start: 06-29-2022 Telephone encounter Janis Ott [facility] Ambulatory [facility] Comment on above: Anticoagulation Tele phone Fu (Home INR) Start: 06-13-2022 Telephone encounter Silva Cobb [facility] Ambulatory [facility] Comment on above: Anticoagulation Tele phone Fu (Home INR result) Start: 05-23-2022 Telephone encounter Silva Cobb [facility] Ambulatory [facility] Comment on above: Anticoagulation Tele phone Fu Start: 05-19-2022 Telephone encounter Ashtyn Jackson [facility] Comment on above: Anticoagulation Tele phone Fu (Home INR expected) Start: 05-05-2022 Telephone encounter Marvin Robertson [facility] Ambulatory [facility] Comment on above: Anticoagulation Tele phone Fu (INR Home Test Result) Start: 05-04-2022 Telephone encounter Janis Ott [facility] Comment on above: Anticoagulation Tele phone Fu (Home INR) Start: 04-20-2022 Telephone encounter Janis Ott [facility] Comment on above: Anticoagulation Tele phone Fu (Home INR) Start: 04-06-2022 Telephone encounter Janis Ott [facility] Comment on above: Anticoagulation Tele phone Fu (Home INR result) Start: 03-30-2022 Telephone encounter [facility] Comment on above: Anticoagulation Tele phone Fu (Home INR result) Start: 03-23-2022 Telephone encounter Janis Ott [facility] Comment on above: Anticoagulation Tele phone Fu (Home INR result) Start: 03-16-2022 Telephone encounter Janis Ott [facility] Comment on above: Anticoagulation Tele phone Fu (Home INR result) Start: 03-09-2022 Telephone encounter Janis Ott [facility] Comment on above: Anticoagulation Tele phone Fu (Home INR result) Start: 03-03-2022 Telephone encounter Susan Chao [facility] Ambulatory [facility] Comment on above: Anticoagulation Tele phone Fu Start: 02-23-2022 Telephone encounter Janis Ott [facility] Comment on above: Anticoagulation [...] 12-06-2021 ambulatory Viviane Mae MD Work Phone: [facility] Comment on above: IPMN (intraductal pa pillary mucinous neoplasm) (Primary Dx); Acute pancreatitis, unspecified complication status, unspecified pancreatitis type Start: 12-06-2021 End: 12-06-2021 Telemedicine consultation with patient Viviane Mae MD Work Phone: [facility] Start: 12-02-2021 Telephone encounter Marvin Cross RPh P [facility] Comment on above: Anticoagulation Tele phone Fu Start: 11-01-2021 Telephone encounter Adriane Cintron [facility] Comment on above: Anticoagulation Tele phone Fu (Home INR ) Start: 10-25-2021 Telephone encounter [facility] Comment on above: Anticoagulation Tele phone Fu (Home INR resul) Start: 10-21-2021 End: 10-21-2021 Subsequent hospital visit by physician Joaquin Bath (1.5t/Lg Bore 70cm) Work Phone: [facility] Comment on above: Pancreatic cyst [K86 .2] Start: 10-12-2021 Telephone encounter [facility] Comment on above: Anticoagulation Tele phone Fu (Home INR result) Start: 10-05-2021 Telephone encounter Kristy [facility]illo [facility] Amb[facility] Comment on above: Anticoagulation Tele phone Fu (Home INR result) Refill Request Referral Update Start: 09-28-2021 Telephone encounter [facility] Comment on above: Anticoagulation Tele phone Fu Start: 09-13-2021 Telephone encounter Silva Cobb [facility] Ambulatory [facility] Comment on above: Anticoagulation Tele phone Fu (Home INR result) Start: 09-02-2021 Telephone encounter Marvin Marcelo [facility] Ambulatory [facility] Comment on above: Anticoagulation Tele phone Fu (INR Home Test Result) Start: 09-01-2021 ambulatory Kat Quintana RN NURSE [employer]DESIGN[employer] Comment on above: Opened In Error Start: 07-20-2021 Telephone encounter [facility] Comment on above: Anticoagulation Tele phone Fu (Home INR ) Start: 07-06-2021 Telephone encounter [facility] Comment on above: Anticoagulation Tele phone Fu (Home INR result) Start: 06-09-2021 Refill Bg Bevrely MD Work Phone: [facility] [place] Comment on above: Refill Request Start: 02-04-2020 End: 02-04-2020 Subsequent hospital visit by physician Chetan michele Katz Work Phone: Radiology Comment on above: Closed displaced com minuted fracture of shaft of left humerus with routine healing, subsequent encounter [S42.352D] Start: 08-20-2018 Patient encounter procedure NOAMAN S ALI Facility:[facility] Start: 08-05-2018 End: 08-06-2018 Patient encounter procedure NOAMAN S ALI Facility:[facility] Start: 07-23-2018 End: 07-23-2018 Patient encounter procedure NOAMAN S ALI Facility:[facility] Procedures Date Procedure Procedure Detail Performing Clinician Start: 12-12-2024 CT angiography of co ronary arteries Dr. 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 Kristy Carrillo [facility] Plan of Treatment Date Care Activity Detail Author Start: 03-14-2029 Colonoscopy COLONOSCOPY [facility] Start: 03-14-2029 COLORECTAL CANCER SCREENING COLORECTAL CANCER SCREENING [facility] Start: 03-14-2029 Screening for malign ant neoplasm of colon [facility] Start: 04-24-2027 Urine microalbumin profile [facility] Start: 12-14-2023 End: 01-12-2024 Mri abdomen w/o & w/contrast material MRI PANC/ZAYRA WO/W IVCON Radiology Routine IPMN (intraductal papillary mucinous neoplasm) Expected: 12/14/2023, Expires: 01/12/2024 [facility] Work Phone: Comment on above: Expected: 12/14/2023 , Expires: 01/12/2024 Start: 12-09-2023 Covid-19 Vaccine () Covid-19 Vaccine () [facility] Start: 12-09-2023 Covid-19 Vaccine () Covid-19 Vaccine () [facility] Start: 12-09-2023 Influenza vaccination [facility] Start: 08-06-2023 Patient referral [facility] Work Phone: Start: 06-12-2023 Dual energy X-ray absorptiometry Dexa Bone Density Study [facility] Start: 04-09-2023 Advance Directive Discussion Advance Directive Discussion [facility] Start: 02-01-2023 Hemoglobin A1c measurement HbA1C [facility] Start: 02-01-2023 Hemoglobin A1c/Hemoglobin.total in Blood HBA1C [facility] Start: 12-08-2022 Covid-19 Vaccine ( season) Covid-19 Vaccine () [facility] Start: 12-08-2022 Influenza vaccination C [facility] Start: 12-06-2022 End: 01-05-2023 Mri abdomen w/o & w/contrast material MRI PANC/ZAYRA WO/W IVCON Radiology Routine IPMN (intraductal papillary mucinous neoplasm) Expected: 12/06/2022, Expires: 01/05/2023 [facility] Work Phone: Comment on above: Expected: 12/06/2022 , Expires: 01/05/2023 Start: 06-10-2022 ANNUAL PCP TEAM TENTER FEEDER IVETTE DISEASE VISIT ANNUAL PCP TEAM CHRONIC DISEASE VISIT [facility] Start: 06-10-2022 BP CONTROLLED (<130/80) BP CONTROLLE D (<130/80) [facility] Start: 04-29-2022 3 comp foot exam completed DIABETIC FOOT EXAM [facility] Start: 04-29-2022 Diabetic foot examination Diabetic Foot Exam [facility] Start: 04-29-2022 Hepatitis B screening URINE ALBUMIN:CREATININE RATIO [facility] Start: 04-27-2022 Mammography [facility] Start: 04-27-2022 Screening for malign ant neoplasm of breast Mammogram Screening [facility] Start: 04-09-2022 ADVANCE DIRECTIVE DISCUSSION ADVANCE DIRECTIVE DISCUSSION [facility] Start: 03-20-2022 Shingrix Vaccine (2 of 2) Shingrix Vaccine (2 of 2) [facility] Start: 01-20-2022 Glaucoma screening Dilated Retinal E xam [facility] Start: 01-20-2022 Hepatitis C antibody , confirmatory test DILATED RETINAL EXAM [facility] Start: 12-08-2021 Influenza vaccination INFLUENZA (#1) [facility] Start: 11-29-2021 BP CONTROLLED (<130/80) BP CONTROLLE D (<130/80) [facility] Start: 11-26-2021 Hepatitis B surface antibody level LDL CHOLESTEROL [facility] Start: 10-25-2021 Hemoglobin A1c/Hemoglobin.total in Blood HBA1C [facility] Start: 05-01-2021 COVID-19 VACCINE (3 - Booster for Pfizer series) COVID-19 VACCINE (3 - Booster for Pfizer series) [facility] Start: 04-09-2021 ADVANCE DIRECTIVE DISCUSSION ADVANCE DIRECTIVE DISCUSSION [facility] Start: 01-24-2021 COVID-19 VACCINE (3 - Booster for Pfizer series) COVID-19 VACCINE (3 - Booster for Pfizer series) [facility] Start: 01-24-2021 COVID-19 VACCINE (3 - Pfizer series) COVID-19 VACCINE (3 - Pfizer series) [facility] Start: 09-16-2019 PNEUMOVAX AGE 65 AND OVER WITH 5YR LOOKBACK (#1) PNEUMOVAX AGE 65 AND OVER WITH 5YR LOOKBACK (#1) [facility] Start: 2014 Hepatitis B Vaccine (1 of 3 - Risk 3-dose series) Hepatitis B Vaccine (1 of 3 - Risk 3-dose series) [facility] Start: 2014 RSV Vaccine (1 - 1-d ose 60+ series) RSV Vaccine (1 - 1-dose 60+ series) [facility] Start: 2014 RSV Vaccine (1 - Ris k 60-74 years 1-dose series) RSV Vaccine (1 - Risk 60-74 years 1-dose series) [facility] Start: 11-25-2011 Pneumococcal Vaccine : 65+ (2 - PCV) Pneumococcal Vaccine: 65+ (2 - PCV) [facility] Start: 11-25-2011 Pneumococcal Vaccine : 65+ (2 of 2 - PCV) Pneumococcal Vaccine: 65+ (2 of 2 - PCV) [facility] Start: 11-25-2011 PNEUMOCOCCAL: 65+ (2 - PCV) PNEUMOCOCCAL: 65+ (2 - PCV) [facility] Start: 2004 SHINGRIX VACCINE (1 of 2) SHINGRIX VACCINE (1 of 2) [facility] Start: 09-16-1999 COLOGUARD (FIT-DNA) COLOGUARD (FIT-D NA) [facility] Start: 09-16-[address] COLONOGRAPHY [facility] Start: 09-16-1999 FECAL OCCULT BLOOD FECAL OCCULT BLOO D [facility] Start: 09-16-1999 Screening for malign ant neoplasm of colon [facility] Start: 09-16-1999 SIGMOIDOSCOPY SIGMOIDOSCOPY [facility] Start: 1972 HEPATITIS C SCREENING HEPATITIS C SC [facility] Start: 1960 PNEUMOCOCCAL: 65+ (1 - PCV) PNEUMOCOCCAL: 65+ (1 - PCV) [facility] CBC W Auto Different ial panel - Blood [facility] Comprehensive metabo lic 1999 panel - Serum or Plasma [facility] CT angiography of coronary arteries [facility] DXA Bone [Mass/Area] Bone density [facility] MG Breast - bilatera l Screening [facility] End: 01-12-2024 MRI 3D POST PROCESSING MRI 3D POST PROCESSING Radiology Routine IPMN (intraductal papillary mucinous neoplasm) 1 Occurrences starting 12/13/2022 until 01/12/2024 [facility] Work Phone: Comment on above: 1 Occurrences starti ng 12/13/2022 until 01/12/2024 Mri abdomen w/o & w/contrast material MRI ABDOMEN WO/W IVCON Radiology Routine Pancreatic cyst 10/21/2021 10:48 AM EDT [facility] Work Phone: Patient referral [facility] Work Phone: Thyroid stimulating hormone [facility] Immunizations Immunization Date Immunization Notes Care Provider [facility] 02-05-2023 influenza, injectabl e, quadrivalent, preservative free Dr. Yanique Espinosa Work Phone: [facility] 02-05-2023 influenza virus vacc ine, unspecified formulation Blas Barba MD Work Phone: [facility] 01-23-2022 influenza, injectabl e, quadrivalent, preservative free Dr. Yanique Espinosa MD Work Phone: [facility] 01-23-2022 influenza virus vacc ine, unspecified formulation [facility] 02-25-2021 influenza, high dose seasonal, preservative-free [facility] 11-29-2020 Covid (Pfizer) Dr. Yanique Espinosa MD Work Phone: [facility] 11-08-2020 COVID-19 vaccine, ag e 12+ yr (PFIZER-BIONTECH - PURPLE TOP) [facility] Work Phone: 01-13-2020 influenza, high-dose , quadrivalent vaccine (FLUZONE HIGH DOSE QUADRIVALENT) [facility] 04-24-2019 influenza, injectabl e, quadrivalent, [facility] preservative [facility] influenza, injectabl e, quadrivalent, contains preservative [facility] 04-23-2017 tetanus and diphther ia toxoids, adsorbed, preservative free, for adult use (5 Lf of tetanus toxoid and 2 Lf of diphtheria toxoid) [facility] 01-31-2017 influenza, injectabl e, quadrivalent, contains preservative [facility] 01-31-2017 influenza, injectabl e, quadrivalent, preservative free Dr. Yanique Espinosa MD Work Phone: [facility] 04-07-2016 influenza, injectabl e, quadrivalent, contains preservative Kristy [facility] 04-07-2016 influenza, injectabl e, quadrivalent, preservative free Dr. Yanique Espinosa MD Work Phone: [facility] 04-05-2015 influenza, injectabl e, quadrivalent, contains preservative Kristy [facility] 04-05-2015 influenza, injectabl e, quadrivalent, preservative free Dr. Yanique Espinosa MD Work Phone: [facility] 03-30-2014 influenza, seasonal, injectable [facility] 03-27-2013 influenza virus vacc ine, unspecified formulation [facility] 03-25-2012 influenza virus vacc ine, unspecified formulation [facility] 11-24-2010 pneumococcal polysaccharide vaccine, 23 valent [facility] 02-19-2006 tetanus and diphther ia toxoids, adsorbed, preservative free, for adult use (2 Lf of tetanus toxoid and 2 Lf of diphtheria toxoid) [facility] Work Phone: Payers Date Payer Category Payer Self-pay [id number] 2020 Medicare UHC AARP MEDICAR E [facility] MEDICARE PPO [id number] 2020-[facility] [phone] [address] [address] [place] [address] PPO [id number] 2020 [facility] [id number] 2019 Medicare [id number] 2013 Unknown [id number] 1954 Unknown [id number] [id number] 1954 Unknown [id number] [id number] 1954 Unknown [id number] [id number] 1954 Unknown [id number] [id number] Medicare [id number] Unknown [id number] Unknown [id number] [id number] Unknown [id number] 2..[id number] Unknown [id number] [id number] Unknown [id number] [id number] Unknown [id number] [id number] Unknown [id number] [id number] Unknown [id number] [id number] Unknown [id number] [id number] Unknown [id number] [id number] Unknown [id number] [id number] Unknown [id number] [id number] Unknown [id number] [id number] Unknown [id number] [id number] Unknown [id number] Social History Date Type Detail Facility Start: 05-05-2019 End: 07-12-2023 Tobacco smoking status NHIS Ex-smoker [facility] Start: 05-05-2019 Tobacco use and exposure Smokeless tobacco non-user [facility] Start: 06-10-2021 End: 12-13-2022 Alcohol intake Current drinker of alcohol (finding) [facility] Start: 11-12-2020 End: 06-10-2021 History SDOH Alcohol Frequency 2 [facility] Start: 11-12-2020 End: 06-10-2021 History SDOH Alcohol Std Drinks 1 [facility] Start: 04-05-2015 History SDOH Alcohol Comment rarely [facility] Start: 11-12-2020 History SDOH Social Connections Phone 5 [facility] Start: 11-12-2020 History SDOH Social Connections Caodaism 3 [facility] Start: 11-12-2020 Education 15 [facility] Start: 05-05-2019 Tobacco Comment Quit @ age 19 [facility] Start: 1955 Sex Assigned At Female [facility] Start: 01-05-2020 End: 11-29-2021 Exposure to SARS-CoV-2 (event) Not sure [facility] Start: 09-03-2021 End: 09-13-2021 Exposure to SARS-CoV-2 (event) Unable to assess [facility] History of tobacco use Current smoker [facility] Start: 09-06-2018 End: 04-25-2022 History of Social function [facility] Work Phone: Start: 09-06-2018 End: 04-25-2022 Area Deprivation Index [facility] Work Phone: National Score (1-10 0), lower number is lower risk 47 [facility] Work Phone: Start: 04-30-2020 Gender identity Identifies as female gender (finding) [facility] Start: 04-30-2020 Sexual orientation Heterosexual (finding) [facility] Start: 11-03-2022 End: 07-12-2023 Tobacco smoking status NHIS Unknown if ever smoked [facility] Start: 11-17-2019 None [facility] Start: 11-17-2019 Spouse/ Significant Other [facility] Do you belong to any clubs or organizations such as restorationism groups, [employer], [employer] or athletic groups, or school groups? Yes [facility] Work Phone: Are you now , , , , never or living with a partner? [facility] Work Phone: How often to you hav e a drink containing alcohol? Monthly or less [facility] Work Phone: How many standard dr inks containing alcohol do you have on a typical day? 1 or 2 [facility] Work Phone: How often do you hav e 6 or more drinks on 1 occasion? Never [facility] Work Phone: Do you feel stress - tense, restless, nervous, or anxious, or unable to sleep at night because your mind is troubled all the time - these days [OSQ] Only a little [facility] Work Phone: (I/We) worried wheth er (my/our) food would run out before (I/we) got money to buy more. Never true [facility] Work Phone: In the past 12 month s, was there a time when you were not able to pay the mortgage or rent on time? No [facility] Start: 01-14-2020 Alcoholic beverage intake Current non-drinker of alcohol (finding) [facility] Medical Equipment Procedure Code Equipment Code Equipment Origin al Text Equipment Identifier Dates Cable Lcp 1.7mm Stainless Steel 750mm Orthopedic Crimp Cerclage Sterile - [id number] Start: 10-28-2019 Graft Dbx Bone V oid Allograft Freeze Dried Putty 5ml - [id number] Start: 10-28-2019 Humeral Stem, Sm all Shell 12 X 108 Mm [id number] Start: 09-06-2018 Small Socket Ins ert 32 Mm Neutral +4 [id number] Start: 09-06-2018 Head Rsp 32mm -4 mm Offset Glenoid Retain Screw - [id number] Start: 09-06-2018 Pin Lcp 4.5mm Stainless Steel Positioning Cerclage Threaded Sterile - [id number] Start: 10-28-2019 Baseplate Rsp P2 30mm Glenoid Sterile - [id number] Start: 09-06-2018 Plate Lcp Narrow Stainless Steel 152x13.5x4.2mm Bone 8 Hole Limit Contact - [id number] Start: 10-28-2019 Screw Rsp 5mm 26 mm Bone Lock Glenoid Baseplate Shoulder - [id number] Start: 09-06-2018 Screw Rsp 5mm 18 mm Bone Lock Glenoid Baseplate Shoulder - [id number] Start: 09-06-2018 Screw Rsp 5mm 30 mm Bone Lock Glenoid Baseplate Shoulder - [id number] Start: 09-06-2018 Screw Rsp 5mm 34 mm Bone Lock Glenoid Baseplate Shoulder - [id number] Start: 09-06-2018 Screw Lcp 4.5mm 8mm Stainless Steel 30mm Bone Self Tapping Large Hexagonal - [id number] Start: 10-28-2019 Screw Lcp 4.5mm 8mm Stainless Steel 36mm Bone Self Tapping Large Hexagonal - [id number] Start: 10-28-2019 Screw Lcp 4.5mm Stainless Steel 28mm Bone Self Tapping Pediatric Large - [id number] Start: 10-28-2019 Screw Lcp 5mm Fu ll Thread T25 Stainless Steel 14mm Bone Lock Self Tap Tip - [id number] Start: 10-28-2019 Screw Lcp 5mm 4. 4mm T25 Blunt Cone Stainless Steel 12mm Bone Self Tap - [id number] Start: 10-28-2019 [id number] Start: 06-14-2021 End: 12-11-2021 Comment on above: 1 Strip once daily. Pt has Foodista 2 Meter. Test blood sugar(s) 1 times daily. Dx: Type 2 DM - Controlled E11.9 Insulin: No Clinical Notes 09-06-2018 to 09-17-2024 Note Date & Type Note Facility 09-17-2024 Evaluation note Diagnosis Onset Date Resolution Hypoxic respiratory failure chronic September 17, 2024 10:27am Family history of early CAD acute November 17 9:50am Hypertension chronic November 17, 2024 9:50am Hypothyroidism chronic November 9:50am Type 2 diabetes mellitus chronic November 17, 2024 9:50am [facility] Work Phone: 1(567) 418-130904-30-2025 Evaluation note* Diagnosis Onset Date Resolution Status Admit Date Health care maintenance acute A [facility] 2024 2:15pm History of DVT (deep vein thrombosis) chronic August 06, 2024 2:15pm Hypertension chronic August 06, 2024 2:15pm Hypothyroidism chronic July 2:15pm Osteoporosis chronic August 06, 2024 2:15pm Type 2 diabetes mellitus chronic August 06, 2024 2:15pm Hypoxic respiratory failure chronic September 17, 2024 10:27am [facility] Work Phone: 1(936) 503-650201-29-2025 Evaluation note* Diagnosis Onset Date Resolution Status Admit Date History of DVT (deep vein thrombosis) chronic May 07 9:03am Hypertension chronic April 9:03am Hypothyroidism chronic May 072024 9:03am Hypoxic respiratory failure chronic May 07, 2024 9:03am Osteoporosis chronic April 9:03am Type 2 diabetes mellitus chronic May 07, 2024 9:03am Health care maintenance acute A [facility] 2024 2:15pm History of DVT (deep vein thrombosis) chronic August 06, 2024 2:15pm Hypertension chronic August 06, 2024 2:15pm Hypothyroidism chronic July 2:15pm Osteoporosis chronic August 06, 2024 2:15pm Type 2 diabetes mellitus chronic August 06, 2024 2:15pm [facility] Work Phone: 1(465) 947-799709-20-2024 Telephone encounter Note* Telephone Encounter - Jossy Han - 12/28/2023 9:29 AM EDT Called LM to go over Scheduled Imaging appt and to schedule follow up appt with patient. Calin Mack SQL ARCHITECT [facility]09-20-2024 Miscellaneous Notes* Telephone Encounter - Jossy Han - 12/28/2023 9:29 AM EDT Called LM to go over Scheduled Imaging appt and to schedule follow up appt with patient. Calin Mack SQL ARCHITECT documented in this encounterS[facility]24 Telephone encounter Note * Telephone Encounter - Mimi (Cable ReelerKofi Ernst - 11/23/2023 3:01 PM EDT [facility] Discharge completed at this time. Patient may be re-referred, if deemed appropriate. Kofi Le Letterer (paste up worker) Pharmacy Anticoagulation Clinic [facility]08-16-2024 Miscellaneous Notes* Telephone Encounter - Mimi (Cable ReelerKofi Ernst - 11/23/2023 3:01 PM EDT Pharmacy Anticoagulation Clinic Discharge completed at this time. Patient may be re-referred, if deemed appropriate. Kofi Le Letterer (paste up worker) [facility] * Telephone Encounter - Silva Cobb RPh - 11/23/2023 2:58 PM EDT Spoke to Kathia in Dr. Espinosa's office. Patient's INRs and warfarin are managed by that office since october. Will discharge her from coumadin clinic. documented in this encounterS[facility]24 Telephone encounter Note * Telephone Encounter - Silva Cobb RPh - 11/23/2023 2:58 PM EDT Spoke to Kathia in Dr. Espinosa's office. Patient's INRs and warfarin are managed by that office since october. Will discharge her from coumadin clinic. 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 documented in this encounterS[facility]-2024 Telephone encounter Note * Telephone Encounter - Silva Cobb RPh - 09/07/2023 1:41 PM EDT [facility] Anticoagulation Episode Summary Anticoagulation Care Providers Provider Role Specialty Phone number Bg Beverly MD Referring Family Medicine [phone] Ashley L Pepper is a 67 year old year old [...] Pharmacy Anticoagulation Clinic [facility] Pager: [phone]. [facility]-31-2024 Miscellaneous Notes* Telephone Encounter - Silva Cobb RPh - 09/07/2023 1:41 PM EDT [facility] Anticoagulation Episode Summary Anticoagulation Care Providers Provider Role Specialty Phone number Bg Beverly MD Referring Family Medicine [phone] Ashley Pabon is a 67 year old [...] Pharmacy Anticoagulation Clinic Pharmacy [facility] Pager: [phone]. documented in this encounterS[facility]-2024 Telephone encounter Note * Telephone Encounter - Silva Cobb RPh - 08/28/2023 10:37 AM EDT [facility] Anticoagulation Episode Summary Anticoagulation Care Providers Provider Role Specialty Phone number Bg Beverly MD Referring Family Medicine [phone] Ashley Pabon is a 67 year old [...] Pharmacy Anticoagulation Clinic Pharmacy [facility] Pager: [phone]. [facility]05-21-2024 Miscellaneous Notes* Telephone Encounter - Silva Cobb RPh - 08/28/2023 10:37 AM EDT [facility] Anticoagulation Episode Summary Anticoagulation Care Providers Provider Role Specialty Phone number Bg Beverly MD Referring Family Medicine [phone] Ashley Pabon is a 67 year old [...] Pharmacy Anticoagulation Clinic Pharmacy [facility] Pager: [phone]. documented in this encounterS[facility]05-[facility]-2024 Telephone encounter Note * Telephone Encounter - Silva Cobb RPh - 08/14/2023 12:08 PM EDT [facility] Anticoagulation Episode Summary Anticoagulation Care Providers Provider Role Specialty Phone number Bg Beverly MD Referring Family Medicine [phone] Ashley Pabon is a 67 year old [...] Pharmacy Anticoagulation Clinic Pharmacy Antico[facility] Pager: [phone]. [facility]05-07-2024 Miscellaneous Notes* Telephone Encounter - Silva Cobb RPh - 08/14/2023 12:08 PM EDT [facility] Anticoagulation Episode Summary Anticoagulation Care Providers Provider Role Specialty Phone number Bg Beverly MD Referring Family Medicine [phone] Ashley Pabon is a 67 year old [...] Pharmacy Anticoagulation Clinic Pharmacy An[facility] Pager: [phone]. 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 documented in this encounterScci [facility]03-04-2024 Miscellaneous Notes* Telephone Encounter - Erica Tejeda RPh - 06/11/2023 10:03 AM EST [facility] Anticoagulation Episode Summary Anticoagulation Care Providers Provider Role Specialty Phone number Bg Beverly MD Referring Family Medicine [phone] Ashley Pabon is a 67 year old [...] instructed to call [facility] at [phone] with any questionsor concerns. Erica Tejeda tae Clinical Pharmacist, Pharmacy Anticoagulation Clinic Pharmacy An[facility] Pager: [phone] documented in this encounterScci [facility]02-12-2024 Miscellaneous Notes* Telephone Encounter - Erica Tejeda RPh - 05/21/2023 11:41 AM EST [facility] Anticoagulation Episode Summary Anticoagulation Care Providers Provider Role Specialty Phone number Bg Beverly MD Referring Family Medicine [phone] Ashley Pabon is a 67 year old [...] instructed to call [facility] at [phone] with any questionsor concerns. Erica Tejeda RPh Clinical Pharmacist, Pharmacy Anticoagulation Clinic Pharmacy [facility] Pager: [phone] documented in this encounterScci Hospital [facility]12-20-2023 Miscellaneous Notes* Telephone Encounter - Tawny Garcia RPh - 03/28/2023 12:15 PM EST The following approved medication requests have been transmitted electronically. Requested Prescriptions Signed Prescriptions Disp Refills warfarin (COUMADIN) 5 mg tablet 90 tablet 3 Sig: Take 5mg (1 tab) by mouth daily or as directed by Coumadin Clinic Authorizing Provider: BG BEVERLY Ordering User: TAWNY GARCIA [facility] * Telephone Encounter - Mimi (Cable ReelerKofi Ernst - 03/28/2023 11:56 AM EST PATIENT CALL Patient called call center regarding refill Patient requested a medication refill. Patient's pharmacy is [facility]. Refill Medication: warfarin 5 mg tablet(s) Refill request sent to pharmacist Yes PT INR (no units) Date Value 03/03/2022 1.5 biotel 02/03/2022 3.7 07/06/2021 2.4 (biotel) INR Home CoaguChek (no units) Date Value 03/22/2023 3.0 03/08/2023 4.9 02/19/2023 2.4 Kofi Le ([employer]) documented in this encounterScci Hospital [facility]12-14-2023 Miscellaneous Notes* Telephone Encounter - Jains Ott, [facility] - 03/22/2023 11:03 AM EST [facility] Anticoagulation Episode Summary Anticoagulation Care Providers Provider Role Specialty Phone number Bg Beverly MD Referring Family Medicine [phone] Ashley Pabon is a 67 year old [...] heterozygous (hcc) History of pulmonary embolus (pe) longterm current use of anticoagulant Anticoagulation Episode Summary [...] Patient denies need for refills. Janis Ott [facility] Clinical Pharmacist, Pharmacy Anticoagulation Clinic Pharmacy Anticoagulation Clinic Pager: [phone]. documented in this encounterScci Hospital [facility]11-30-2023 Miscellaneous Notes* Telephone Encounter - Janis Ott RPh - 03/08/2023 11:29 AM EST [facility] Anticoagulation Episode Summary Anticoagulation Care Providers Provider Role Specialty Phone number Bg Beverly MD Referring Family Medicine [phone] Ashley Pabon is a 67 year old [...] heterozygous (hcc) History of pulmonary embolus (pe) longterm current use of anticoagulant Anticoagulation Episode Summary [...] Pharmacy Anticoagulation Clinic Pharmacy Antico[facility] Clinic Pager: [phone]. documented in this encounterScci [facility]11-13-2023 Miscellaneous Notes* Telephone Encounter - Erica Tejeda RPh - 02/19/2023 1:15 PM EST [facility] Anticoagulation Episode Summary Anticoagulation Care Providers Provider Role Specialty Phone number Bg Beverly MD Referring Family Medicine [phone] Ashley Pabon is a 67 year old [...] instructed to call [facility] at [phone] with any questionsor concerns. Erica Tejeda RPh Clinical Pharmacist, Pharmacy Anticoagulation Clinic Pharmacy Antico[facility] Pager: [phone] documented in this encounterScci Hospital [facility]11-06-2023 NoteHNO ID: [id number] Author: [facility] Iftikhar Nichols Service: ? Author Type: [...] or suspected condition Iftikhar Cerrato [facility] [place] February 12, 2023 2:04 [facility]11-06-2023 History of Present illness Narrative* [facility] - 02/12/2023 2:04 PM EST [facility] NAVIGATION OUTREACH Action/FYI Updated PCP field per care everywhere documents. Patient Identified by Name and : NO Outreach Outcome/Action PCP field updated Did you use a PCP flex slot to schedule this appointment? N/A Reason for Outreach HCC or suspected condition Iftikhar Cerrato [facility] [place] February 12, 2023 2:04 PM documented in this encounterScci Hospital [facility]11-06-2023 NotePatient Outreach (NETNAV) ASHLEY PABON ([id number]) 1955 F Date Time Provider Department 02/12/23 IFTIKHAR CERRATO NETNAV During your visit today, we recorded the following information about you: Reji [facility] Iftikhar Nichols 02/12/2023 2:05 PM Signed [facility] NAVIGATION OUTREACH Action/FYI Updated PCP field per care everywhere documents. Patient Identified by Name and : NO Outreach Outcome/Action PCP field updated Did you use a PCP flex slot to schedule this appointment? N/A Reason for Outreach HCC or suspected condition Iftikhar Cerrato [facility] [place] February 12, 2023 2:04 PM Allergies As [...] bridging treatment with lovenox (more content not included)...[facility]11-03[facility] [facility] [facility]26[facility]23 Miscellaneous Notes* Telephone Encounter - Adriane Cintron [facility] - 02/01/2023 9:39 AM EDT [facility] Anticoagulation Episode Summary Anticoagulation Care Providers Provider Role Specialty Phone number Bg Beverly MD Referring Family Medicine [phone] Ashley Pabon is a 67 year old [...] Pharmacy Anticoagulation Clinic Pharmacy Anticoagulation Clinic Pager: [phone]. documented in this encounterScci Hospital [facility]ima10-13-2023 Miscellaneous Notes* Telephone Encounter - Marvin Robertson RPh - 01/19/2023 1:36 PM EDT Patient due to test INR today. Will continue to monitor for results. 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 documented in this encounterScci Hospital [facility]ima09-13-2023 Miscellaneous Notes* Telephone Encounter - Kristy Carrillo, [facility] - 12/20/2022 2:38 PM EDT [facility] Anticoagulation Episode Summary Anticoagulation Care Providers Provider Role Specialty Phone number Bg Beverly MD Referring Family Medicine [phone] Ashley Pabon is a 67 year old [...] hemp gummies that she started in early- Aguust also. Plan: Current Warfarin Dosing As of [...] Pharmacy Anticoagulation Clinic Pharmacy Anticoagulation Clinic Pager: [phone]. documented in this encounterScci Hospital [facility]ima09-06-2023 History of Present illness Narrative* Blas Barba MD - 12/13/2022 4:54 PM EDT Images from the original note were not included. Blas Barba M.D. Surgical Oncology [address], [address] [place] [address] TELEPHONE VISIT NOTE SUBJECTIVE Ashley Pabon is [...] MD 12/13/2022 4:57 PM documented in this encounterScci Hospital [facility]ima09-05-2023 Miscellaneous Notes* Telephone Encounter - Silva Cobb RP - 12/12/2022 1:03 PM EDT [facility] Anticoagulation Episode Summary Anticoagulation Care Providers Provider Role Specialty Phone number Bg Beverly MD Referring Family Medicine [phone] Ashley Pabon is a 67 year old [...] Pharmacy Anticoagulation Clinic Pharmacy Anticoagulation Clinic Pager: [phone]. * Telephone Encounter - Nga Cartagena RN - 12/12/2022 12:53 PM EDT Patient returned the call and can be reached at [phone]. Linsey Cartagena RN Pharmacy Anticoagulation Clinic * Telephone Encounter - Silva Cobb RPh - 12/12/2022 9:14 AM EDT The patient was called to discuss recent INR test results. A voice message was left on patient's Home telephone voice mail. The patient was advised to call the Coumadin Clinic at [phone] and hold x1 (12/12). PT INR (no units) Date Value 03/03/2022 1.5 biotel 02/03/2022 3.7 07/06/2021 2.4 (biotel) INR Home CoaguChek (no units) Date Value 12/11/2022 4.8 11/27/2022 2.3 11/22/2022 6.4 Silva Cobb, PharmD,CACP documented in this encounterScci Hospital Lima08-30-2023 History of Present illness Narrative* Megan Romero RT(R) - 12/06/2022 8:40 AM EDT Radiology [...] MR; Exam(s) Completed: Body: Pancreas/Biliary SIGNATURE: RT Glenda(Kanwal) PATIENT NAME: Ashley Pabon DATE: December 06, 2022 TIME: 9:16 AM documented in this encounterScci Hospital [facility]ima08-30-2023 NoteHNO ID: [id number] Author: Megan Romero RT (R) Service: ? [...] MR; Exam(s) Completed: Body: Pancreas/Biliary SIGNATURE: RT Glenda(Kanwal) PATIENT NAME: Ashley Pabon DATE: December 06, 2022 TIME: 9:16 [facility]08-21-2023 Miscellaneous Notes* Telephone Encounter - Erica Tejeda RPh - 11/27/2022 2:10 PM EDT [facility] Anticoagulation Episode Summary Anticoagulation Care Providers Provider Role Specialty Phone number Bg Beverly MD Referring Family Medicine [phone] Ashley Pabon is a 67 year old [...] instructed to call [facility] at [phone] with any questionsor concerns. Erica Tejeda RPh Clinical Pharmacist, Pharmacy Anticoagulation Clinic Pharmacy Anticoagulation Clinic Pager: [phone] documented in this encounterScci Hospital [facility]ima08-16-2023 Miscellaneous Notes* Telephone Encounter - Mimi RamosCable ReelerKofi Ernst - 11/22/2022 11:08 AM EDT [facility] called regarding inr result from today. Result was addressed in 11/10/2022 encounter. No action needed. Kofi Le Letterer (paste up worker) Pharmacy Anticoagulation Clinic documented in this encounterScci Hospital [facility]ima08-04-2023 Miscellaneous Notes* Telephone Encounter - Marvin Robertson RPh - 11/10/2022 3:35 PM EDT Patient due to test INR today. Will continue to monitor for results. Marvin Robertson RPh documented in this encounterScci Hospital [facility]06-26-2023 Miscellaneous Notes* Telephone Encounter - Erica Tejeda RP - 10/02/2022 1:28 PM EDT [facility] Anticoagulation Episode Summary Anticoagulation Care Providers Provider Role Specialty Phone number Bg Beverly MD Referring Family Medicine [phone] Ashlye Pabon is a 67 year old year [...] Pharmacy Anticoagulation Clinic Pharmacy Anticoagulation Clinic Pager: [phone]. documented in this encounterScci Hospital [facility]ima06-07-2023 Miscellaneous Notes* Telephone Encounter - Kristy Carrillo RPh - 09/13/2022 8:43 AM EDT [facility] Anticoagulation Episode Summary Anticoagulation Care Providers Provider Role Specialty Phone number Bg Beverly MD Referring Family Medicine [phone] Ashley Pabon is a 66 year old [...] Sulfa (Sulfonamide * Rash Indication for Warfarin: longterm current use of anticoagulant History of pulmonary [...] Patient denies need for refills. Kristy Carrillo RP Clinical Pharmacist, Pharmacy Anticoagulation Clinic Pharmacy Anticoagulation Clinic Pager: [phone]. * Telephone Encounter - Silva Cobb RPh - 09/12/2022 3:57 PM EDT Ashley Pabon was called and reminded to test INR today or as soon as possible. Silva Cobb RPh documented in this encounterScci Hospital [facility]ima05-15-2023 Miscellaneous Notes* Telephone Encounter - Erica Tejeda RP - 08/21/2022 4:43 PM EDT [facility] Anticoagulation Episode Summary Anticoagulation Care Providers Provider Role Specialty Phone number Bg Beverly MD Referring Family Medicine [phone] Ashley Pabon is a 66 year old [...] Pharmacy Anticoagulation Clinic Pharmacy Anticoagulation Clinic Pager: [phone]. documented in this encounterScci Hospital [facility]ima04-25-2023 Miscellaneous Notes* Telephone Encounter - Silva Cobb RPh - 08/01/2022 11:48 AM EDT [facility] Anticoagulation Episode Summary Anticoagulation Care Providers Provider Role Specialty Phone number Bg Beverly MD Referring Family Medicine [phone] Ashley Pabon is a 66 year old [...] Pharmacy Anticoagulation Clinic Pharmacy Anticoagulation Clinic Pager: [phone]. 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 documented in this encounterScci Hospital [facility]ima03-23-2023 Miscellaneous Notes* Telephone Encounter - Janis Ott RPh - 06/29/2022 5:08 PM EDT [facility] Anticoagulation Episode Summary Anticoagulation Care Providers Provider Role Specialty Phone number Bg Beverly MD Referring Family Medicine [phone] Ashley Pabon is a 66 year old [...] Sulfa (Sulfonamide * Rash Indication for Warfarin: longterm current use of anticoagulant History of pulmonary embolus (pe) Factor 5 leiden mutation, heterozygous (hcc) Anticoagulation Episode Summary Current INR goal: 2.0-3.0 Assessment: INR result of 2.4 is therapeutic Plan: Current Warfarin Dosing As of 06/29/2022 Full warfarin instructions: 2.5 mg every Sun; 5 mg all other days Left voice message Advised patient to continue current weekly dose as noted above Next home INR check scheduled on 07/13/2022 Janis Ott [facility] Clinical Pharmacist, Pharmacy Anticoagulation Clinic Pharmacy Anticoagulation Clinic Pager: [phone]. documented in this encounterScci Hospital [facility]ima03-07-2023 Miscellaneous Notes* Telephone Encounter - Silva Cobb RP - 06/13/2022 10:34 AM EST [facility] Anticoagulation Episode Summary Anticoagulation Care Providers Provider Role Specialty Phone number Bg Beverly MD Referring Family Medicine [phone] Ashley Pabon is a 66 year old [...] Pharmacy Anticoagulation Clinic Pharmacy Anticoagulation Clinic Pager: [phone]. documented in this encounterScci Hospital [facility]ima02-15-2023 Miscellaneous Notes* Telephone Encounter - Kristy Carrillo [...] dose. She will retest by 05/29. Kristy Carrillo PharmD Pharmacy Anticoagulation Clinic * Telephone Encounter - Kofi Le (Cable Reeler) - 05/24/2022 9:19 AM EST PATIENT CALL Patient called call center regarding message. Patient stated she was taking Dayquil/ Nyquil for about four days along with mucinex. Patient stated she did hold warfarin yesterday. Patient can be reached at [phone] Kofi Le (Cable Reeler) * Telephone Encounter - Silva Cobb RPh - 05/23/2022 9:08 AM EST The patient was called to discuss recent INR test results. A voice message was left on patient's Home telephone voice mail. The patient was advised to call the Coumadin Clinic at [phone], hold warfarin today and go to ED if any bleeding or bruising. PT INR (no units) Date Value 03/03/2022 1.5 biotel 02/03/2022 3.7 07/06/2021 2.4 (biotel) INR Home CoaguChek (no units) Date Value 05/22/2022 5.1 05/05/2022 1.6 04/21/2022 2.9 Silva Cobb, Pharmacist documented in this encounterScci Hospital [facility]ima02-14-2023 Miscellaneous Notes* Telephone Encounter - Kofi Le (Cable Reeler) - 05/23/2022 8:49 AM EST PATIENT CALL Frankie called call center regarding results PT INR (no units) Date Value 03/03/2022 1.5 biotel 02/03/2022 3.7 07/06/2021 2.4 (biotel) INR Home CoaguChek (no units) Date Value 05/22/2022 5.1 05/05/2022 1.6 04/21/2022 2.9 Patient can be reached at [phone] Kofi Le (Cable Reeler) * Telephone Encounter - Ashtyn Jackson RPh - 05/19/2022 4:19 PM EST Pt was due to test INR today. No result received. Will continue to monitor for result. documented in this encounterScci Hospital [facility]ima01-27-2023 Miscellaneous Notes* Telephone Encounter - Nga Cartagena RN - 05/05/2022 1:16 PM EST Broderick Aurelio left a VM regarding the patient's INR result on 05/05. Noted result has been addressed below. Nga Cartagena RN * Telephone Encounter - Marvin Robertson [facility] - 05/05/2022 12:12 PM EST [facility] Anticoagulation Episode Summary Anticoagulation Care Providers Provider Role Specialty Phone number Bg Beverly MD Referring Family Medicine [phone] Ashley Pabon is a 66 year old [...] Sulfa (Sulfonamide * Rash Indication for Warfarin: longterm current use of anticoagulant History of pulmonary [...] Pharmacy Anticoagulation Clinic Pharmacy Anticoagulation Clinic Pager: [phone]. documented in this encounterScci Hospital [facility]ima01-26-2023 Miscellaneous Notes* Telephone Encounter - Janis Ott [facility] - 05/04/2022 4:13 PM EST Patient due to test INR today. Will continue to monitor for results. Janis Ott [facility] documented in this encounterScci Hospital [facility]ima01-13-2023 Miscellaneous Notes* Telephone Encounter - Janis Ott RP - 04/21/2022 12:51 PM EST [facility] Anticoagulation Episode Summary Anticoagulation Care Providers Provider Role Specialty Phone number Bg Beverly MD Referring Family Medicine [phone] Ashley Pabon is a 66 year old [...] Sulfa (Sulfonamide * Rash Indication for Warfarin: longterm current use of anticoagulant History of pulmonary [...] Pharmacy Anticoagulation Clinic Pharmacy Anticoagulation Clinic Pager: [phone]. * Telephone Encounter - Janis Ott RPh - 04/20/2022 3:35 PM EST Patient due to test INR today. Will continue to monitor for results. 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 Janis Ott [facility] Clinical Pharmacist, Pharmacy Anticoagulation Clinic Pharmacy Anticoagulation Clinic Pager: [phone]. 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 documented in this encounterScci Hospital [facility]ima12-15-2022 Miscellaneous Notes* Telephone Encounter - Janis Ott RPh - 03/23/2022 12:54 PM EST [facility] Anticoagulation Episode Summary Anticoagulation Care Providers Provider Role Specialty Phone number Bg Beverly MD Referring Family Medicine [phone] Ashley Pabon is a 66 year old [...] Sulfa (Sulfonamide * Rash Indication for Warfarin: longterm current use of anticoagulant History of pulmonary [...] Patient denies need for refills. Janis Ott [facility] Clinical Pharmacist, Pharmacy Anticoagulation Clinic Pharmacy Anticoagulation Clinic Pager: [phone]. 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 Janis Ott [facility] Clinical Pharmacist, Pharmacy Anticoagulation Clinic Pharmacy Anticoagulation Clinic Pager: [phone]. documented in this encounterScci Hospital [facility]ima12-01-2022 Miscellaneous Notes* Telephone Encounter - Kofi Le (Cable Reeler) - 03/09/2022 3:28 PM EST PATIENT CALL Shital called call center regarding results. Result has been addressed below. 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 Patient denies need for refills. Janis Ott RPh Clinical Pharmacist, Pharmacy Anticoagulation Clinic Pharmacy Anticoagulation Clinic Pager: [phone]. documented in this encounterScci Hospital [facility]ima11-25-2022 Miscellaneous Notes* Telephone Encounter - Susan Chao RPh - 03/03/2022 12:57 PM EST [facility] Anticoagulation Episode Summary Anticoagulation Care Providers Provider Role Specialty Phone number Bg Beverly MD Referring Family Medicine [phone] Ashley Pabon is a 66 year old [...] Sulfa (Sulfonamide * Rash Indication for Warfarin: longterm current use of anticoagulant History of pulmonary [...] Patient denies need for refills. Susan Chao [facility] Clinical Pharmacist, Pharmacy Anticoagulation Clinic Pharmacy Anticoagulation Clinic Pager: [phone]. 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 Janis Ott [facility] Clinical Pharmacist, Pharmacy Anticoagulation Clinic Pharmacy Anticoagulation Clinic Pager: [phone]. documented in this encounterScci Hospital [facility]11-11-2022 Miscellaneous Notes* Telephone Encounter - Marvin Robertson RPh - 02/17/2022 3:14 PM EST [facility] Anticoagulation Episode Summary Anticoagulation Care Providers Provider Role Specialty Phone number Bg Beverly MD Referring Family Medicine [phone] Ashley aPbon is a 66 year old year old [...] Sulfa (Sulfonamide * Rash Indication for Warfarin: longterm current use of anticoagulant History of pulmonary embolus (pe) Factor 5 leiden mutation, heterozygous (hcc) Anticoagulation Episode Summary Current INR goal: 2.0-3.0 Assessment: INR result of 2.3 is therapeutic Plan: Current Warfarin Dosing As of 02/17/2022 Full warfarin instructions: 5 mg every Sun, Wed, Fri; 2.5 mg all other days Sent Melodigram message Advised patient to continue current weekly dose as noted above Next home INR check scheduled on 02/24/2022 Marvin Robertson RPh Clinical Pharmacist, Pharmacy Anticoagulation Clinic Pharmacy Anticoagulation Clinic Pager: [phone]. 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 documented in this encounterScci Hospital [facility]10-21-2022 Miscellaneous Notes* Telephone Encounter - Marvin Robertson RPh - 01/27/2022 2:20 PM EDT [facility] Anticoagulation Episode Summary Anticoagulation Care Providers Provider Role Specialty Phone number Bg Beverly MD Referring Family Medicine [phone] Ashley Pabon is a 66 year old [...] Sulfa (Sulfonamide * Rash Indication for Warfarin: longterm current use of anticoagulant History of pulmonary [...] Pharmacy Anticoagulation Clinic Pharmacy Anticoagulation Clinic Pager: [phone]. documented in this encounterScci Hospital [facility]ima10-14-2022 Miscellaneous Notes* Telephone Encounter - Marvin Robertson RPh - 01/20/2022 4:15 PM EDT Patient due to test INR today. Will continue to monitor for results. 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 documented in this encounterScci Hospital [facility]10-05-2022 Miscellaneous Notes* Telephone Encounter - Kristy Carrillo RPh - 01/11/2022 11:32 AM EDT Patient was due to test INR today will continue to monitor for results. Kristy Carrillo PharmD Pharmacy Anticoagulation Clinic documented in this encounterScci Hospital [facility]08-30-2022 History of Present illness Narrative* Viviane Mae MD - 12/06/2021 1:11 PM EDT VIRTUAL VISIT PROGRESS NOTE This is a virtual visit using [employer] video visit. It required patient-provider interaction for [...] MIDLINE INSERTION/CONSULT 10/27/2019 PAST SURGICAL HISTORY OF 2019 Dental sx REMOVAL SKN TAGS HEALTHCARE REPRESENTATIVE FIBRQ TAGS ANY AREA UPW/15 05/02/2006 Multiple tags TOTAL ABDOMINAL HYSTERECT W/WO RMVL TUBE OVARY 2004 Hysterectomy, ELMER, & Panniculectomy VAGINAL DELIVERY HX 1985 FAMILY HISTORY Problem Relation Age of Onset None Mother auto accident Coronary Artery Disease Father [place] 51 DVT Father Hypertension Sister other (DDD) [...] which included preparing to see the patient, [id number] patient care, completing clinical documentation, obtaining and/or reviewing separately obtained history, counseling and educating the patient/family/caregiver, ordering medications, tamra ts, or procedures, independently interpreting results (not separately reported), and communicating results to the patient/family/caregiver Viviane Mae MD documented in this encounterScci Hospital [facility]ima08-26-2022 Miscellaneous Notes* Telephone Encounter - Marvin Robertson RPh - 12/02/2021 2:16 PM EDT Patient due to test INR today. Will continue to monitor for results. Marvin Robertson RPh documented in this encounterScci Hospital [facility]ima07-26-2022 Miscellaneous Notes* Telephone Encounter - Adriane Cintron RPh - 11/01/2021 10:17 AM EDT Patient was due to test INR today. Will continue to monitor for results. 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 documented in this encounterScci Hospital [facility]ima07-15-2022 History of Present illness Narrative* RT Isidro(R) [...] MR; Exam(s) Completed: Body: Pancreas/Biliary SIGNATURE: RT Isidro(Kanwal) PATIENT NAME: Ashley Pabon DATE: October 21, 2021 TIME: 10:03 AM documented in this encounterScci Hospital [facility]ima07-06-2022 Miscellaneous Notes* Telephone Encounter - Kristy Carrillo RPh - 10/12/2021 10:37 AM EDT [facility] Anticoagulation Episode Summary Anticoagulation Care Providers Provider Role Specialty Phone number Bg Beverly MD Referring [facility] [phone] Ashley Pabon is a 66 year old [...] Sulfa (Sulfonamide * Rash 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 documented in this encounterScci Hospital [facility]ima06-29-2022 Miscellaneous Notes* Telephone Encounter - Nga Cartagena [...] back to the Pharmacy Anticoagulation Clinic at [phone]. If you have any questions about the home INR program, also known as the Pharmacist Managed Telemanagement Anticoagulation (PAC) service, please contact a member of our pharmacy team at [phone] Option #2. Thank you, Linsey Cartagena RN Pharmacy Anticoagulation Clinic * Telephone Encounter - Hope Farah (Cable Reeler) - 10/05/2021 12:26 PM EDT Received call from Megan Broderick Remote INR to report home meter result for patient. [facility] has already addressed this result (see below); nothing further needed at this time. Hope Farah CPhT (Letterer) Pharmacy Anticoagulation Clinic * Telephone Encounter - Kristy Carrillo RPh - 10/05/2021 11:00 AM EDT [facility] Anticoagulation Episode Summary [...] Pharmacy Anticoagulation Clinic Pharmacy Anticoagulation Clinic Pager: [phone] . documented in this encounterScci Hospital [facility]ima06-29-2022 Miscellaneous Notes* Telephone Encounter - Nga Cartagena RN - 10/05/2021 12:31 PM EDT Updated anticoag navigator. Will send updated PAF for Dr. Beverly's signature upon his return. Linsey Cartagena RN Pharmacy Anticoagulation Clinic * Telephone Encounter - Krystal Schroeder APRN.CNP - 10/05/2021 12:21 PM EDT Yes. He is out of the office this week. Krystal Schroeder APRN.RAFAEL * Telephone Encounter - Nga Cartagena RN [...] Clinic * Telephone Encounter - Kristy Carrillo [facility] - 10/05/2021 11:[address] Beverly, Ashley Campbell Pepper [phone] was originally referred to the Pharmacy Anticoagulation Clinic by Dr. Perezo is no longer involved in the patient s care. It appears that you are the [facility] physician most involved in the patient's care. Would you agree to serve as referring physician for our ongoing anticoagulation follow up? Please place a new referral to Anticoagulation/Coumadin Clinic Pharm (order #[id number].) Diagnosis:Primary Hypercoagulable State: Factor V Leiden mutation ( heterozygous ) and Pulmonary Embolism INR Range: 2 to 3 Duration: Indefinite Please feel free to call/email/page if you have questions or concerns. Thank you, Kristy Carrillo PharmD Pharmacy Anticoagulation Clinic documented in this encounterScci Hospital [facility]ima06-29-2022 Miscellaneous Notes* Telephone Encounter - Kristy Carrillo [...] [facility] [place] [address] - [address] [phone] [address] [address] Kristy Carrillo RPh documented in this encounterScci Hospital [facility]ima06-22-2022 Miscellaneous Notes* Telephone Encounter - Kristy Carrillo RPh - 09/28/2021 10:53 AM EDT [facility] Anticoagulation Episode Summary [...] Pharmacy Anticoagulation Clinic Pharmacy Anticoagulation Clinic Pager: [phone] . documented in this encounterScci Hospital [facility]ima06-08-2022 Miscellaneous Notes* Telephone Encounter - Kristy Carrillo [facility] - 09/14/2021 10:24 AM EDT [facility] Anticoagulation Episode Summary Anticoagulation Care Providers Provider Role Specialty Phone number Anastacia Viera III, MD Referring [facility] Practice Ashley Pabon is a 65 [...] Pharmacy Anticoagulation Clinic Pharmacy Anticoagulation Clinic Pager: [phone] . * Telephone Encounter - Silva Cobb RPh - 09/13/2021 5:34 PM EDT Ashley Pabon was called and reminded to test INR today or as soon as possible. Silva Cobb RPh documented in this encounterScci Hospital [facility]ima05-27-2022 Miscellaneous Notes* Telephone Encounter - Marvin Robertson RPh - 09/02/2021 11:09 AM EDT [facility] Anticoagulation Episode Summary [...] Pharmacy Anticoagulation Clinic Pharmacy Anticoagulation Clinic Pager: [phone] . documented in this encounterScci Hospital [facility]ima04-21-2022 Miscellaneous Notes* Telephone Encounter - Susan Chao RPh - 07/28/2021 10:39 AM EDT [facility] Anticoagulation Episode Summary Anticoagulation Care Providers Provider Role Specialty Phone number Anastaica Viera III, MD Referring Family Practice Ashley [...] Advised pt to Call Coumadin Clinic at [phone] to confirm dosing and follow-up Susan Chao RPh Clinical Pharmacist, Pharmacy Anticoagulation Clinic Pharmacy Anticoagulation Clinic Pager: [phone] . * Telephone Encounter - Kristy Carrillo [...] results. Kristy Carrillo PharmD documented in this encounterScci Hospital [facility]ima03-30-2022 Miscellaneous Notes* Telephone Encounter - Kristy Carrillo RPh - 07/06/2021 9:35 AM EDT [facility] Anticoagulation Episode Summary [...] Pharmacy Anticoagulation Clinic Pharmacy Anticoagulation Clinic Pager: [phone] . documented in this encounterScci Hospital [facility]03-03-2022 Miscellaneous Notes* Telephone Encounter - Annemarie Lopes RN - 06/09/2021 10:19 AM EST Patient states the 5 pended scripts were to be sent to [facility] on 04/29/21 however patient states the pharmacy states they never received the scripts. Patient asking them to be resent. Thank you. documented in this encounterScci Hospital [facility]ima10-28-2020 History of Present illness Narrative* Anna Mcmillan [...] 04, 2020 10:45 AM documented in this encounterScci Hospital [facility]ima05-31-2019 History of Past illness Narrative* Problem Noted [...] of this encounter (statuses as of 07/06/2021) [facility] Narrative* Problem Noted [...] of this encounter (statuses as of 07/28/2021) [facility] Narrative* Problem Noted [...] of this encounter (statuses as of 09/01/2021) [facility] Narrative* Problem Noted [...] of this encounter (statuses as of 09/02/2021) [facility] Narrative* Problem Noted [...] of this encounter (statuses as of 09/14/2021) [facility] Narrative* Problem Noted [...] of this encounter (statuses as of 09/28/2021) [facility] Narrative* Problem Noted [...] of this encounter (statuses as of 10/05/2021) [facility] Narrative* Problem Noted [...] of this encounter (statuses as of 10/05/2021) [facility] Narrative* Problem Noted [...] of this encounter (statuses as of 10/05/2021) [facility] Narrative* Problem Noted [...] of this encounter (statuses as of 10/12/2021) [facility] Narrative* Problem Noted [...] of this encounter (statuses as of 10/22/2021) [facility] Narrative* Problem Noted [...] of this encounter (statuses as of 10/25/2021) [facility] Narrative* Problem Noted [...] of this encounter (statuses as of 11/02/2021) [facility] Narrative* Problem Noted [...] of this encounter (statuses as of 12/02/2021) [facility] Narrative* Problem Noted [...] of this encounter (statuses as of 12/06/2021) [facility] Narrative* Problem Noted [...] of this encounter (statuses as of 01/13/2022) [facility] Narrative* Problem Noted [...] of this encounter (statuses as of 01/20/2022) [facility] Narrative* Problem Noted [...] of this encounter (statuses as of 01/27/2022) [facility] Narr[facility]* Problem Noted [...] of this encounter (statuses as of 02/03/2022) [facility] N[facility]* Problem Noted [...] of this encounter (statuses as of 02/10/2022) [facility] N[facility]* Problem Noted [...] of this encounter (statuses as of 02/17/2022) [facility]* Problem Noted [...] of this encounter (statuses as of 02/23/2022) [facility] N[facility]* Problem Noted [...] of this encounter (statuses as of 03/03/2022) [facility] N[facility]* Problem Noted [...] of this encounter (statuses as of 03/09/2022) [facility]* Problem Noted [...] of this encounter (statuses as of 03/13/2022) [facility]* Problem Noted [...] of this encounter (statuses as of 03/16/2022) [facility]* Problem Noted [...] of this encounter (statuses as of 03/23/2022) [facility]* Problem Noted [...] of this encounter (statuses as of 03/31/2022) [facility]* Problem Noted [...] of this encounter (statuses as of 04/12/2022) [facility] N[facility]* Problem Noted [...] of this encounter (statuses as of 04/21/2022) [facility]* Problem Noted [...] of this encounter (statuses as of 05/05/2022) [facility] N[facility]* Problem Noted [...] of this encounter (statuses as of 05/05/2022) [facility] Narr[facility]* Problem Noted [...] of this encounter (statuses as of 05/23/2022) [facility] N[facility]* Problem Noted [...] of this encounter (statuses as of 05/24/2022) [facility]* Problem Noted [...] of this encounter (statuses as of 06/13/2022) [facility]* Problem Noted [...] of this encounter (statuses as of 06/30/2022) [facility]* Problem Noted [...] of this encounter (statuses as of 07/13/2022) [facility]* Problem Noted [...] of this encounter (statuses as of 08/01/2022) [facility]* Problem Noted [...] of this encounter (statuses as of 08/22/2022) [facility]* Problem Noted [...] of this encounter (statuses as of 09/13/2022) [facility]* Problem Noted [...] of this encounter (statuses as of 10/02/2022) [facility]* Problem Noted [...] of this encounter (statuses as of 11/10/2022) [facility]* Problem Noted [...] of this encounter (statuses as of 11/22/2022) [facility]* Problem Noted [...] of this encounter (statuses as of 11/28/2022) [facility]* Problem Noted [...] of this encounter (statuses as of 12/12/2022) [facility]* Problem Noted [...] of this encounter (statuses as of 12/14/2022) [facility]* Problem Noted [...] of this encounter (statuses as of 12/21/2022) [facility]* Problem Noted [...] of this encounter (statuses as of 01/06/2023) [facility]* Problem Noted [...] of this encounter (statuses as of 01/19/2023) [facility] Problem Noted [...] of this encounter (statuses as of 02/01/2023) [facility]* Problem Noted [...] of this encounter (statuses as of 02/11/2023) [facility]* Problem Noted [...] of this encounter (statuses as of 02/13/2023) [facility]* Problem Noted [...] of this encounter (statuses as of 02/19/2023) [facility]* Problem Noted [...] of this encounter (statuses as of 03/08/2023) [facility]* Problem Noted [...] of this encounter (statuses as of 03/22/2023) [facility]* Problem Noted [...] of this encounter (statuses as of 03/29/2023) [facility]* Problem Noted [...] of this encounter (statuses as of 05/21/2023) [facility]* Problem Noted [...] of this encounter (statuses as of 06/11/2023) [facility]* Problem Noted [...] of this encounter (statuses as of 07/11/2023) [facility]* Problem Noted [...] of this encounter (statuses as of 07/19/2023) [facility] [place] [facility] Diagnosis History of pulmonary embolus (PE) Personal history of pulmonary embolism Factor 5 Leiden mutation, heterozygous (HCC) Primary hypercoagulable state [facility] [place] [facility]* Diagnosis History of pulmonary embolus (PE) Personal history of pulmonary embolism Factor 5 Leiden mutation, heterozygous (HCC) Primary hypercoagulable state [facility]* Diagnosis History of pulmonary embolus (PE) Personal history of pulmonary embolism Factor 5 Leiden mutation, heterozygous (HCC) Primary hypercoagulable state [facility] Diagnosis History of pulmonary embolus (PE) Personal history of pulmonary embolism Factor 5 Leiden mutation, heterozygous (HCC) Primary hypercoagulable state [facility] Diagnosis History of pulmonary embolus (PE) Personal history of pulmonary embolism Factor 5 Leiden mutation, heterozygous (HCC) Primary hypercoagulable state [facility]* Diagnosis longterm current use of anticoagulant- Primary Long-term (current) use of anticoagulants History of pulmonary embolus (PE) Personal history of pulmonary embolism Factor 5 Leiden mutation, heterozygous (HCC) Primary hypercoagulable state [facility] [place] [facility]* Diagnosis Hypothyroidism, unspecified type Chronic insomnia Insomnia, unspecified 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 Long-term (current) use of anticoagulants History of pulmonary embolus (PE) Personal history of pulmonary embolism Factor 5 Leiden mutation, heterozygous (HCC) Primary hypercoagulable state documented in this encounter [facility] note* Diagnosis Pancreatic cyst Cyst and pseudocyst of pancreas documented in this encounter [facility] note* 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 Long-term (current) use of anticoagulants History of pulmonary embolus (PE) Personal history of pulmonary embolism Factor 5 Leiden mutation, heterozygous (HCC) Primary hypercoagulable state documented in this encounter [facility] note* Diagnosis IPMN (intraductal papillary mucinous neoplasm)- Primary Neoplasm of unspecified nature of digestive system Acute pancreatitis, unspecified complication status, unspecified pancreatitis type documented in this encounter [facility] note* 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 Long-term (current) use of anticoagulants History of pulmonary embolus (PE) Personal history of pulmonary embolism Factor 5 Leiden mutation, heterozygous (HCC) Primary hypercoagulable state documented in this encounter [facility] note* Diagnosis longterm current use of anticoagulant Long-term (current) use of anticoagulants History of pulmonary embolus (PE) Personal history of pulmonary embolism Factor 5 Leiden mutation, heterozygous (HCC) Primary hypercoagulable state documented in this encounter [facility] note* 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 Long-term (current) use of anticoagulants History of pulmonary embolus (PE) Personal history of pulmonary embolism Factor 5 Leiden mutation, heterozygous (HCC) Primary hypercoagulable state documented in this encounter [facility] note* 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 Long-term (current) use of anticoagulants History of pulmonary embolus (PE) Personal history of pulmonary embolism Factor 5 Leiden mutation, heterozygous (HCC) Primary hypercoagulable state documented in this encounter [facility] note* Diagnosis Factor 5 Leiden mutation, heterozygous (HCC)- Primary Primary hypercoagulable state History of pulmonary embolus (PE) Personal history of pulmonary embolism 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 Long-term (current) use of anticoagulants documented in this encounter [facility] note* Diagnosis Onset Date Resolution Status Abnormal cardiac enzyme level acute Acute cystitis acute REGINE (acute kidney injury) [place] Hypothyroidism [facility] Work Phone: Evaluation note* Diagnosis IPMN (intraductal papillary mucinous neoplasm)- Primary Neoplasm of unspecified nature of digestive system Body mass index (BMI) 40.0-44.9, adult (HCC) [facility] Diagnosis Factor 5 Leiden mutation, heterozygous (HCC)- Primary Primary hypercoagulable state History of pulmonary embolus (PE) Personal history of pulmonary embolism 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 Long-term (current) use of anticoagulants [facility] Diagnosis Factor 5 Leiden mutation, heterozygous (HCC)- Primary Primary hypercoagulable state History of pulmonary embolus (PE) Personal history of pulmonary embolism longterm current use of anticoagulant Long-term (current) use of anticoagulants [facility] Diagnosis IPMN (intraductal papillary mucinous neoplasm) Neoplasm of unspecified nature of digestive system [facility] Diagnosis Onset Date Resolution Status Abnormal cardiac enzyme level acute Acute cystitis acute REGINE (acute kidney injury) [place] Hypothyroidism chronic Osteoporosis chronic Nocturnal hypoxemia chronic Chronic fatigue chronic Gout chronic Hypothyroidism chronic Nocturnal hypoxemia chronic Osteoarthritis chronic Type 2 diabetes mellitus [facility] Work Phone: Evaluation note* Diagnosis Factor 5 Leiden mutation, heterozygous (HCC)- Primary Primary hypercoagulable state History of pulmonary embolus (PE) Personal history of pulmonary embolism 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 Long-term (current) use of anticoagulants [facility]* Diagnosis Onset Date Resolution Status Osteoporosis chronic Nocturnal hypoxemia chronic Chronic fatigue chronic Gout chronic Hypothyroidism chronic Nocturnal hypoxemia chronic Osteoarthritis chronic Type 2 diabetes mellitus [facility] Work Phone: Evaluation note* Diagnosis Onset Date Resolution Status Osteoporosis chronic Nocturnal hypoxemia chronic Chronic fatigue chronic Gout chronic Hypothyroidism chronic Nocturnal hypoxemia chronic Osteoarthritis chronic Type 2 diabetes mellitus [facility] Hypoxic respiratory failure chronic Obesity chronic Stage 1 mild COPD by GOLD classification chronic Gout chronic High blood pressure chronic History of DVT (deep vein thrombosis) chronic Hypothyroidism chronic Hypoxic respiratory failure chronic Osteoporosis chronic Type 2 diabetes mellitus [facility] Work Phone: Evaluation note* Diagnosis Onset Date Resolution Status Hypoxic respiratory failure chronic Obesity chronic Stage 1 mild COPD by GOLD classification chronic Gout chronic High blood pressure chronic History of DVT (deep vein thrombosis) chronic Hypothyroidism chronic Hypoxic respiratory failure chronic Osteoporosis chronic Type 2 diabetes mellitus [facility] Work Phone: Evaluation note* Diagnosis Onset Date Resolution Status Gout chronic High blood pressure chronic History of DVT (deep vein thrombosis) chronic Hypothyroidism chronic Hypoxic respiratory failure chronic Osteoporosis chronic Type 2 diabetes mellitus [facility] Abdominal pain acute Bowel incontinence acute Hypothyroidism chronic Hypoxic respiratory failure chronic Osteoarthritis chronic Type 2 diabetes mellitus [facility] Work Phone: Evaluation note* Diagnosis Closed displaced comminuted fracture of shaft of left humerus with routine healing, subsequent encounter documented in this encounter [facility] for referral (narrative)* Diagnostic Procedure Only (Routine) - Closed Specialty Diagnoses / Procedures Referred By Nichol bro Referred To Contact MR IMAGING Diagnoses Pancreatic cyst Procedures MRI ABDOMEN WO/W IVCON MRI,ABDOMEN,W&WO Viviane Sarmiento MD [address] [place] [id number] Mr Imaging Referral ID Status Reason Start Date Expiration Date V isits Requested Visits Authorized [id number] Closed Auto-Generate d Referral 10/05/2020 11/04/2021 1 1 [facility] for referral (narrative)No reason for referral information availableWMercy [facility] Work Phone: Reason for visit Narrative* Diagnostic Procedure Only (Routine) - Closed Specialty Diagnoses / Procedures Referred By Nichol bro Referred To Contact MR IMAGING Diagnoses Pancreatic cyst Procedures MRI ABDOMEN WO/W IVCON MRI,ABDOMEN,W&WO Viviane Sarmiento MD [address] [employer] [address] [place] [address] Mr Imaging Referral ID Status Reason Start Date Expiration Date V isits Requested Visits Authorized [id number] Closed Auto-Generate d Referral 10/05/2020 11/04/2021 1 1 [facility] Summary Purpose Family History No Family History [...] File Type Date Recorded Patient Director Of Marketing Communications Expl anation Advance Directive(s) 11/01/2020 9:52 AM [...] File Type Date Recorded Patient Director Of Marketing Communications Expl anation Advance Directive(s) 11/01/2020 9:52 AM [...] File Type Date Recorded Patient Director Of Marketing Communications Expl anation Advance Directive(s) 11/29/2011 6:39 PM Documents on File Type Date Recorded Patient Director Of Marketing Communications Expl anation Advance Directive(s) 11/29/2011 6:39 PM Advance Directive Response Recorded Date/ Time Living Will Yes September 03, 2020 9 :47pm Power of Stacker Yes September 03, 2020 9:47pm Advance Directive Response Recorded Date/ Time Living Will Yes September 03, 2020 8 :47pm Power of Stacker Yes September 03, 2020 8:47pm Advance Directive Response Recorded Date/ Time Living Will Yes September 03, 2020 9 :47pm Do you have a Healthcare Power of Stacker? Yes September 03, 2020 9:47pm Reason for Referral Specialty Diagnoses / Procedures Referred By Contac t Referred To Contact MR IMAGING Diagnoses IPMN (intraductal papillary mucinous neoplasm) Procedures MRI PANC/ZAYRA WO/W IVCON MRI ABDOMEN W/O & W/CONTRAST MATERIAL Viviane Mae MD [address] [place] [address] Mr Imaging Referral ID Status Reason Start Date Expiration Date Visits Requested Visits Authorized [id number] Pending Review Auto-Generat ed Referral 12/06/2022 01/05/2023 1 1 Specialty Diagnoses / Procedures Referred By Contac t Referred To Contact MR IMAGING Diagnoses IPMN (intraductal papillary mucinous neoplasm) Procedures MRI 3D POST PROCESSING 3D RENDERING W/INTERP&POSTPROC DIFF WORK STATION Blas Barba MD [address] [place] [address] Mr Imaging [id number] Referral ID Status Reason Start Date Expiration Date Visits Requested Visits Authorized [id number] Pending Review Auto-Generat ed Referral 12/13/2022 01/12/2024 1 1 Specialty Diagnoses / Procedures Referred By Contac t Referred To Contact MR IMAGING Diagnoses IPMN (intraductal papillary mucinous neoplasm) Procedures MRI PANC/ZAYRA WO/W IVCON MRI ABDOMEN W/O & W/CONTRAST MATERIAL Blas Barba MD [address] [place] [address] [place] [address] Referral ID Status Reason Start Date Expiration Date Visits Requested Visits Authorized [id number] Pending Review Auto-Generat ed Referral 12/14/2023 01/12/2024 1 1 Specialty Diagnoses / Procedures Referred By Contac t Referred To Contact MR IMAGING Diagnoses IPMN (intraductal papillary mucinous neoplasm) Procedures MRI PANC/ZAYRA WO/W IVCON MRI ABDOMEN W/O & W/CONTRAST MATERIAL Viviane Mae MD [address] [address] [place] [address] Referral ID Status Reason Start Date Expiration Date V isits Requested Visits Authorized [id number] Closed Auto-Generate d Referral 12/06/2022 01/05/2023 1 1 Chief Complaint and Reason for Visit Chief Complaint DATA SOLUTIONS ARCHITECT. EST CARE Hypersomnia, unspecified Reason for Visit Abnormal cardiac enz yme level Acute cystitis REGINE (acute kidney injury) Hypothyroidism Chief Complaint DATA SOLUTIONS ARCHITECT. EST CARE Hypersomnia, unspecified prolia idopathic sleep 3 M FU G47.34 G47.34 G47.34 G47.34 Reason for Visit Abnormal cardiac enz yme level Acute cystitis REGINE (acute kidney injury) Hypothyroidism Osteoporosis Nocturnal hypoxemia Chronic fatigue Gout Hypothyroidism Nocturnal hypoxemia Osteoarthritis Type 2 diabetes mellitus Chief Complaint DATA SOLUTIONS ARCHITECT. EST CARE Hypersomnia, unspecified prolia idopathic sleep [...] Date History of DVT (deep vein thrombosis) Ja ary 2024 9:03am Hypertension May 07, 2024 9 :03am Hypothyroidism May 07, 2024 9 :03am Hypoxic respiratory failure April 9:03am Osteoporosis May 07, 2024 9 :03am Type 2 diabetes mellitus May 07, 2 025 9:03am Health care maintenance August 06, 2024 2:15pm History of DVT (deep vein thrombosis) Ap [facility] 2024 2:15pm Hypertension August 06, 2024 2:1 [...] History of DVT (deep vein thrombosis) Ap [facility] 2024 2:15pm Hypertension August 06, 2024 2:1 [...] M FU November 17, 2024 9: 50am Chief Complaint Admit Date Breast Cancer Screening August 21, 2024 1 1:43am 6 m fu September 17, 2024 10:2 7am 3 M FU November 17, 2024 9: 50am [facility] December 02, 2024 2:13pm HYPERTENSION December 12, 2024 7:43am Reason for Visit Admit Date Hypoxic respiratory failure September 17, 2 025 10:27am Family history of early CAD November 17, 2024 9:50am Hypertension November 17, 2024 9: 50am Hypothyroidism November 17, 2024 9: 50am Type 2 diabetes mellitus November 17 9:50am Chief Complaint Admit Date 6 m fu September 17, 2024 10:2 7am 3 M FU November 17, 2024 9: 50am [facility] December 02, 2024 2:13pm HYPERTENSION December 12, 2024 7:43am CT CALCIUM SCORING December 12, 2024 7:44am [facility] December 26, 2024 9:37am Additional Source Comments INFORMATION SOURCE (unrecogn ized section and content) DATE CREATED AUTHOR 08/16/2018 [facility] DATE CREATED AUTHOR AUTHOR'S ORGANIZ ATION 08/10/2022 [facility] DATE CREATED AUTHOR AUTHOR'S ORGANIZ ATION 11/25/2023 [facility] DATE CREATED AUTHOR AUTHOR'S ORGANIZ ATION 12/30/2023 [facility] DATE CREATED AUTHOR AUTHOR'S ORGANIZ ATION 02/15/2025 [facility] Source Comments (unrecognize d section and content) In the event this informatio n is protected by the Federal Confidentiality of Alcohol and Drug Abuse Patient Records regulations: The Federal rules restrict any use of the information to criminally investigate or prosecute any alcohol or drug abuse patient.[facility] the event this information is protected by the Federal Confidentiality of Alcohol and Drug Abuse Patient Records regulations: The Federal rules restrict any use of the information to criminally investigate or prosecute any alcohol or drug abuse patient.[facility] the event this information is protected by the Federal Confidentiality of Alcohol and Drug Abuse Patient Records regulations: The Federal rules restrict any use of the information to criminally investigate or prosecute any alcohol or drug abuse patient.[facility] the event this information is protected by the Federal Confidentiality of Alcohol and Drug Abuse Patient Records regulations: The Federal rules restrict any use of the information to criminally investigate or prosecute any alcohol or drug abuse patient.[facility] the event this information is protected by the Federal Confidentiality of Alcohol and Drug Abuse Patient Records regulations: The Federal rules restrict any use of the information to criminally investigate or prosecute any alcohol or drug abuse patient.[facility] the event this information is protected by the Federal Confidentiality of Alcohol and Drug Abuse Patient Records regulations: The Federal rules restrict any use of the information to criminally investigate or prosecute any alcohol or drug abuse patient.[facility] the event this information is protected by the Federal Confidentiality of Alcohol and Drug Abuse Patient Records regulations: The Federal rules restrict any use of the information to criminally investigate or prosecute any alcohol or drug abuse patient.[facility] the event this information is protected by the Federal Confidentiality of Alcohol and Drug Abuse Patient Records regulations: The Federal rules restrict any use of the information to criminally investigate or prosecute any alcohol or drug abuse patient.[facility] the event this information is protected by the Federal Confidentiality of Alcohol and Drug Abuse Patient Records regulations: The Federal rules restrict any use of the information to criminally investigate or prosecute any alcohol or drug abuse patient.[facility] the event this information is protected by the Federal Confidentiality of Alcohol and Drug Abuse Patient Records regulations: The Federal rules restrict any use of the information to criminally investigate or prosecute any alcohol or drug abuse patient.[facility] the event this information is protected by the Federal Confidentiality of Alcohol and Drug Abuse Patient Records regulations: The Federal rules restrict any use of the information to criminally investigate or prosecute any alcohol or drug abuse patient.[facility] the event this information is protected by the Federal Confidentiality of Alcohol and Drug Abuse Patient Records regulations: The Federal rules restrict any use of the information to criminally investigate or prosecute any alcohol or drug abuse patient.[facility] the event this information is protected by the Federal Confidentiality of Alcohol and Drug Abuse Patient Records regulations: The Federal rules restrict any use of the information to criminally investigate or prosecute any alcohol or drug abuse patient.[facility] the event this information is protected by the Federal Confidentiality of Alcohol and Drug Abuse Patient Records regulations: The Federal rules restrict any use of the information to criminally investigate or prosecute any alcohol or drug abuse patient.[facility] the event this information is protected by the Federal Confidentiality of Alcohol and Drug Abuse Patient Records regulations: The Federal rules restrict any use of the information to criminally investigate or prosecute any alcohol or drug abuse patient.[facility]In the event this information is protected by the Federal Confidentiality of Alcohol and Drug Abuse Patient Records regulations: The Federal rules restrict any use of the information to criminally investigate or prosecute any alcohol or drug abuse patient.[facility] the event this information is protected by the Federal Confidentiality of Alcohol and Drug Abuse Patient Records regulations: The Federal rules restrict any use of the information to criminally investigate or prosecute any alcohol or drug abuse patient.[facility] the event this information is protected by the Federal Confidentiality of Alcohol and Drug Abuse Patient Records regulations: The Federal rules restrict any use of the information to criminally investigate or prosecute any alcohol or drug abuse patient.[facility] the event this information is protected by the Federal Confidentiality of Alcohol and Drug Abuse Patient Records regulations: The Federal rules restrict any use of the information to criminally investigate or prosecute any alcohol or drug abuse patient.[facility]In the event this information is protected by the Federal Confidentiality of Alcohol and Drug Abuse Patient Records regulations: The Federal rules restrict any use of the information to criminally investigate or prosecute any alcohol or drug abuse patient.[facility]In the event this information is protected by the Federal Confidentiality of Alcohol and Drug Abuse Patient Records regulations: The Federal rules restrict any use of the information to criminally investigate or prosecute any alcohol or drug abuse patient.[facility]In the event this information is protected by the Federal Confidentiality of Alcohol and Drug Abuse Patient Records regulations: The Federal rules restrict any use of the information to criminally investigate or prosecute any alcohol or drug abuse patient.[facility]In the event this information is protected by the Federal Confidentiality of Alcohol and Drug Abuse Patient Records regulations: The Federal rules restrict any use of the information to criminally investigate or prosecute any alcohol or drug abuse patient.[facility]In the event this information is protected by the Federal Confidentiality of Alcohol and Drug Abuse Patient Records regulations: The Federal rules restrict any use of the information to criminally investigate or prosecute any alcohol or drug abuse patient.[facility]In the event this information is protected by the Federal Confidentiality of Alcohol and Drug Abuse Patient Records regulations: The Federal rules restrict any use of the information to criminally investigate or prosecute any alcohol or drug abuse patient.[facility]imaIn the event this information is protected by the Federal Confidentiality of Alcohol and Drug Abuse Patient Records regulations: The Federal rules restrict any use of the information to criminally investigate or prosecute any alcohol or drug abuse patient.[facility]In the event this information is protected by the Federal Confidentiality of Alcohol and Drug Abuse Patient Records regulations: The Federal rules restrict any use of the information to criminally investigate or prosecute any alcohol or drug abuse patient.[facility]In the event this information is protected by the Federal Confidentiality of Alcohol and Drug Abuse Patient Records regulations: The Federal rules restrict any use of the information to criminally investigate or prosecute any alcohol or drug abuse patient.[facility]In the event this information is protected by the Federal Confidentiality of Alcohol and Drug Abuse Patient Records regulations: The Federal rules restrict any use of the information to criminally investigate or prosecute any alcohol or drug abuse patient.[facility]In the event this information is protected by the Federal Confidentiality of Alcohol and Drug Abuse Patient Records regulations: The Federal rules restrict any use of the information to criminally investigate or prosecute any alcohol or drug abuse patient.[facility]In the event this information is protected by the Federal Confidentiality of Alcohol and Drug Abuse Patient Records regulations: The Federal rules restrict any use of the information to criminally investigate or prosecute any alcohol or drug abuse patient.[facility]In the event this information is protected by the Federal Confidentiality of Alcohol and Drug Abuse Patient Records regulations: The Federal rules restrict any use of the information to criminally investigate or prosecute any alcohol or drug abuse patient.[facility]In the event this information is protected by the Federal Confidentiality of Alcohol and Drug Abuse Patient Records regulations: The Federal rules restrict any use of the information to criminally investigate or prosecute any alcohol or drug abuse patient.[facility] the event this information is protected by the Federal Confidentiality of Alcohol and Drug Abuse Patient Records regulations: The Federal rules restrict any use of the information to criminally investigate or prosecute any alcohol or drug abuse patient.[facility]In the event this information is protected by the Federal Confidentiality of Alcohol and Drug Abuse Patient Records regulations: The Federal rules restrict any use of the information to criminally investigate or prosecute any alcohol or drug abuse patient.[facility]In the event this information is protected by the Federal Confidentiality of Alcohol and Drug Abuse Patient Records regulations: The Federal rules restrict any use of the information to criminally investigate or prosecute any alcohol or drug abuse patient.[facility]In the event this information is protected by the Federal Confidentiality of Alcohol and Drug Abuse Patient Records regulations: The Federal rules restrict any use of the information to criminally investigate or prosecute any alcohol or drug abuse patient.[facility]In the event this information is protected by the Federal Confidentiality of Alcohol and Drug Abuse Patient Records regulations: The Federal rules restrict any use of the information to criminally investigate or prosecute any alcohol or drug abuse patient.[facility]In the event this information is protected by the Federal Confidentiality of Alcohol and Drug Abuse Patient Records regulations: The Federal rules restrict any use of the information to criminally investigate or prosecute any alcohol or drug abuse patient.[facility]In the event this information is protected by the Federal Confidentiality of Alcohol and Drug Abuse Patient Records regulations: The Federal rules restrict any use of the information to criminally investigate or prosecute any alcohol or drug abuse patient.[facility]In the event this information is protected by the Federal Confidentiality of Alcohol and Drug Abuse Patient Records regulations: The Federal rules restrict any use of the information to criminally investigate or prosecute any alcohol or drug abuse patient.[facility]In the event this information is protected by the Federal Confidentiality of Alcohol and Drug Abuse Patient Records regulations: The Federal rules restrict any use of the information to criminally investigate or prosecute any alcohol or drug abuse patient.[facility]In the event this information is protected by the Federal Confidentiality of Alcohol and Drug Abuse Patient Records regulations: The Federal rules restrict any use of the information to criminally investigate or prosecute any alcohol or drug abuse patient.[facility]In the event this information is protected by the Federal Confidentiality of Alcohol and Drug Abuse Patient Records regulations: The Federal rules restrict any use of the information to criminally investigate or prosecute any alcohol or drug abuse patient.[facility] the event this information is protected by the Federal Confidentiality of Alcohol and Drug Abuse Patient Records regulations: The Federal rules restrict any use of the information to criminally investigate or prosecute any alcohol or drug abuse patient.[facility]In the event this information is protected by the Federal Confidentiality of Alcohol and Drug Abuse Patient Records regulations: The Federal rules restrict any use of the information to criminally investigate or prosecute any alcohol or drug abuse patient.[facility]In the event this information is protected by the Federal Confidentiality of Alcohol and Drug Abuse Patient Records regulations: The Federal rules restrict any use of the information to criminally investigate or prosecute any alcohol or drug abuse patient.[facility]In the event this information is protected by the Federal Confidentiality of Alcohol and Drug Abuse Patient Records regulations: The Federal rules restrict any use of the information to criminally investigate or prosecute any alcohol or drug abuse patient.[facility]In the event this information is protected by the Federal Confidentiality of Alcohol and Drug Abuse Patient Records regulations: The Federal rules restrict any use of the information to criminally investigate or prosecute any alcohol or drug abuse patient.[facility]In the event this information is protected by the Federal Confidentiality of Alcohol and Drug Abuse Patient Records regulations: The Federal rules restrict any use of the information to criminally investigate or prosecute any alcohol or drug abuse patient.[facility]In the event this information is protected by the Federal Confidentiality of Alcohol and Drug Abuse Patient Records regulations: The Federal rules restrict any use of the information to criminally investigate or prosecute any alcohol or drug abuse patient.[facility]In the event this information is protected by the Federal Confidentiality of Alcohol and Drug Abuse Patient Records regulations: The Federal rules restrict any use of the information to criminally investigate or prosecute any alcohol or drug abuse patient.[facility]In the event this information is protected by the Federal Confidentiality of Alcohol and Drug Abuse Patient Records regulations: The Federal rules restrict any use of the information to criminally investigate or prosecute any alcohol or drug abuse patient.[facility]In the event this information is protected by the Federal Confidentiality of Alcohol and Drug Abuse Patient Records regulations: The Federal rules restrict any use of the information to criminally investigate or prosecute any alcohol or drug abuse patient.[facility]In the event this information is protected by the Federal Confidentiality of Alcohol and Drug Abuse Patient Records regulations: The Federal rules restrict any use of the information to criminally investigate or prosecute any alcohol or drug abuse patient.[facility]In the event this information is protected by the Federal Confidentiality of Alcohol and Drug Abuse Patient Records regulations: The Federal rules restrict any use of the information to criminally investigate or prosecute any alcohol or drug abuse patient.[facility]In the event this information is protected by the Federal Confidentiality of Alcohol and Drug Abuse Patient Records regulations: The Federal rules restrict any use of the information to criminally investigate or prosecute any alcohol or drug abuse patient.[facility]In the event this information is protected by the Federal Confidentiality of Alcohol and Drug Abuse Patient Records regulations: The Federal rules restrict any use of the information to criminally investigate or prosecute any alcohol or drug abuse patient.[facility]imaIn the event this information is protected by the Federal Confidentiality of Alcohol and Drug Abuse Patient Records regulations: The Federal rules restrict any use of the information to criminally investigate or prosecute any alcohol or drug abuse patient.[facility] the event this information is protected by the Federal Confidentiality of Alcohol and Drug Abuse Patient Records regulations: The Federal rules restrict any use of the information to criminally investigate or prosecute any alcohol or drug abuse patient.[facility]ima[facility] the event this information is protected by the Federal Confidentiality of Alcohol and Drug Abuse Patient Records regulations: The Federal rules restrict any use of the information to criminally investigate or prosecute any alcohol or drug abuse patient.[facility]ima[facility] the event this information is protected by the Federal Confidentiality of Alcohol and Drug Abuse Patient Records regulations: The Federal rules restrict any use of the information to criminally investigate or prosecute any alcohol or drug abuse patient.[facility]ima[facility] the event this information is protected by the Federal Confidentiality of Alcohol and Drug Abuse Patient Records regulations: The Federal rules restrict any use of the information to criminally investigate or prosecute any alcohol or drug abuse patient.[facility]ima[facility] the event this information is protected by the Federal Confidentiality of Alcohol and Drug Abuse Patient Records regulations: The Federal rules restrict any use of the information to criminally investigate or prosecute any alcohol or drug abuse patient.[facility]ima[facility] the event this information is protected by the Federal Confidentiality of Alcohol and Drug Abuse Patient Records regulations: The Federal rules restrict any use of the information to criminally investigate or prosecute any alcohol or drug abuse patient.[facility]ima[facility] the event this information is protected by the Federal Confidentiality of Alcohol and Drug Abuse Patient Records regulations: The Federal rules restrict any use of the information to criminally investigate or prosecute any alcohol or drug abuse patient.[facility]ima[facility] the event this information is protected by the Federal Confidentiality of Alcohol and Drug Abuse Patient Records regulations: The Federal rules restrict any use of the information to criminally investigate or prosecute any alcohol or drug abuse patient.[facility]ima[facility] the event this information is protected by the Federal Confidentiality of Alcohol and Drug Abuse Patient Records regulations: The Federal rules restrict any use of the information to criminally investigate or prosecute any alcohol or drug abuse patient.[facility] Reason for Visit (unrecogniz ed section and [...] IVCON MRI ABDOMEN W/O & W/CONTRAST MATERIAL Ali, Noaman, MD [address] [place] [address] [place] [address] Referral ID Status Reason Start Date Expiration Date V isits Requested Visits Authorized [id number] Closed Auto-Generate d Referral 12/06/2022 01/05/2023 1 [...] Nichol bro Referred To Contact Radiology / [facility] WS Diagnoses Main Lobby Closed displaced comminuted fracture of shaft of left humerus with routine heali... Procedures XR GENERAL 7 Tanner Case MD [address] [place] [address] [facility] [address] [place] [address] Referral ID Status Reason Start Date Expiration Date Visits Re quested Visits Authorized [id number] Closed 02/04/2020 04/08/2020 1 1 Care Teams (unrecognized sec tion and content) Pipe Smoking Machine Offbearer Relationship Specialty Start Date End Date Bg Beverly MD [address] [place], [place] [id number] PCP - General Family Practice 09/23/20 13, Pharmacist [id number] [place] [address] Pharmacist Pharmacy 11/13/19 Pipe Smoking Machine Offbearer Relationship Specialty Start Date End Date Bg Beverly MD [address] [place] [address] PCP - General Family Practice 09/23/20 13, Pharmacist [id number] [place] [address] Pharmacist Pharmacy 11/13/19 Pipe Smoking Machine Offbearer Relationship Specialty Start Date End Date Bg Beverly MD [address] [place] [address] PCP - General Family Practice 09/23/20 13, Pharmacist [id number] [place] [address] Pharmacist Pharmacy 11/13/19 Pipe Smoking Machine Offbearer Relationship Specialty Start Date End Date Bg Beverly MD [address] [place] [address] PCP - General Family Practice 09/23/20 13, Pharmacist [phone] [place] [address] Pharmacist Pharmacy 11/13/19 Pipe Smoking Machine Offbearer Relationship Specialty Start Date End Date Bg Beverly MD [address] [place] [address] PCP - General Family Practice 09/23/20 13, Pharmacist [id number] [place] [address] Pharmacist Pharmacy 11/13/19 Pipe Smoking Machine Offbearer Relationship Specialty Start Date End Date Bg Beverly MD [address] [place] [address] PCP - General Family Practice 09/23/20 13, Pharmacist [phone] [place] [address] Pharmacist Pharmacy 11/13/19 Pipe Smoking Machine Offbearer Relationship Specialty Start Date End Date Bg Beverly MD [address] [place] [address] PCP - General Family Practice 09/23/20 13, Pharmacist [id number] [place] [address] Pharmacist Pharmacy 11/13/19 Pipe Smoking Machine Offbearer Relationship Specialty Start Date End Date Bg Beverly MD [address] [place] [address] PCP - General Family Practice 09/23/20 13, Pharmacist [id number] [place] [address] Pharmacist Pharmacy 11/13/19 Pipe Smoking Machine Offbearer Relationship Specialty Start Date End Date Bg Beverly MD [address] [place] [address] PCP - General Family Practice 09/23/20 13, Pharmacist [id number] [place] [address] Pharmacist Pharmacy 11/13/19 Pipe Smoking Machine Offbearer Relationship Specialty Start Date End Date Bg Beverly MD [address] [place] [address] PCP - General Family Practice 09/23/20 13, Pharmacist [id number] [place] [address] Pharmacist Pharmacy 11/13/19 Pipe Smoking Machine Offbearer Relationship Specialty Start Date End Date Bg Beverly MD [address] [place] [address] PCP - General Family Medicine 09/23/20 13, Pharmacist [id number] [place] [address] Pharmacist Pharmacy 11/13/19 Pipe Smoking Machine Offbearer Relationship Specialty Start Date End Date Bg Beverly MD [address] [place] [address] PCP - General Family Medicine 09/23/20 13, Pharmacist [phone] [place] [address] Pharmacist Pharmacy 11/13/19 Pipe Smoking Machine Offbearer Relationship Specialty Start Date End Date Bg Beverly MD [address] [place] [address] PCP - General Family Medicine 09/23/20 13, Pharmacist [id number] [place] [address] Pharmacist Pharmacy 11/13/19 Pipe Smoking Machine Offbearer Relationship Specialty Start Date End Date Bg Beverly MD [address] [place] [address] PCP - General Family Medicine 09/23/20 13, Pharmacist [phone] [place] [address] Pharmacist Pharmacy 11/13/19 Pipe Smoking Machine Offbearer Relationship Specialty Start Date End Date Bg Beverly MD [address] [place] [address] PCP - General Family Medicine 09/23/20 13, Pharmacist [id number] [place] [address] Pharmacist Pharmacy 11/13/19 Pipe Smoking Machine Offbearer Relationship Specialty Start Date End Date Bg Beverly MD [address] [place] [address] PCP - General Family Medicine 09/23/20 13, Pharmacist [phone] [place] [address] Pharmacist Pharmacy 11/13/19 Team Status: Active Member Role Status Dates Dr. Anastacia Viera III, MD Family Provider Active Dr. Yanique Espinosa MD Primary Care Provider Active Team Status: Inactive Member Role Status Dates Dr. Yanique Espinosa MD Attending Provider Active Team Status: Active Member Role Status Dates Dr. Yanique Espinosa MD Primary Care P hoa, Attending Provider, Referring Provider Active Team Status: Inactive Member Role Status Dates Dr. Yanique Espinosa MD Primary Care P hoa, Attending Provider, Referring Provider Active Pipe Smoking Machine Offbearer Relationship Specialty Start Date End Date Bg Beverly MD [address] [place] [address] PCP - General Family Medicine 09/23/20 13, Pharmacist [phone] [place] [address] Pharmacist Pharmacy 11/13/19 Pipe Smoking Machine Offbearer Relationship Specialty Start Date End Date Bg Beverly MD [address] [place] [address] PCP - General Family Medicine 09/23/20 13, Pharmacist [phone] [place] [address] Pharmacist Pharmacy 11/13/19 Pipe Smoking Machine Offbearer Relationship Specialty Start Date End Date Bg Beverly MD [address] [place] [address] PCP - General Family Medicine 09/23/20 13, Pharmacist [phone] [place] [address] Pharmacist Pharmacy 11/13/19 Pipe Smoking Machine Offbearer Relationship Specialty Start Date End Date Bg Beverly MD [address] [place] [address] PCP - General Family Medicine 09/23/20 13, Pharmacist [phone] [place] [address] Pharmacist Pharmacy 11/13/19 Pipe Smoking Machine Offbearer Relationship Specialty Start Date End Date Bg Beverly MD [address] [place] [address] PCP - General Family Medicine 09/23/20 13, Pharmacist [phone] [place] [address] Pharmacist Pharmacy 11/13/19 Pipe Smoking Machine Offbearer Relationship Specialty Start Date End Date Bg Beverly MD [address] [place] [address] PCP - General Family Medicine 09/23/20 13, Pharmacist [id number] [place], [place] [id number] Pharmacist Pharmacy 11/13/19 Pipe Smoking Machine Offbearer Relationship Specialty Start Date End Date Bg Beverly MD [address] [place], [place] [address] PCP - General Family Medicine 09/23/20 13, Pharmacist [id number] [place] [address] Pharmacist Pharmacy 11/13/19 Team Status: Inactive Member [...] MD Attending Provider, Referring Pr ovider Active Pipe Smoking Machine Offbearer Relationship Specialty Start Date End Date Yanique Espinosa MD [address] [facility] [address] [place] [phone] PCP - General Internal Medicine 02/12/23 13, Pharmacist [phone] [place] [address] Pharmacist Pharmacy 11/13/19 Pipe Smoking Machine Offbearer Relationship Specialty Start Date End Date Yanique Espinosa MD [address] [facility] [address] [place] [address] PCP - General Internal Medicine 02/12/23 13, Pharmacist [id number] [place] [address] Pharmacist Pharmacy 11/13/19 Team Status: Active Member Role Status Dates Dr. Yanique Espinosa MD Primary Care Provider Active Dr. José Luis Vaca MD Attending Provider Active Pipe Smoking Machine Offbearer Relationship Specialty Start Date End Date Yanique Espinosa MD [address] [facility] [address] [place] [address] PCP - General Internal Medicine 02/12/23 13, Pharmacist [phone] [place] [address] Pharmacist Pharmacy 11/13/19 Pipe Smoking Machine Offbearer Relationship Specialty Start Date End Date Yanique Espinosa MD [address] [phone] PCP - General Internal Medicine 02/12/23 13, Pharmacist [phone] [place] [address] Pharmacist Pharmacy 11/13/19 Team Status: Inactive Member Role Status Dates Dr. Yanique Espinosa MD Primary Care Provider, Refer ring Provider Active Glenys Kulkarni DATA SOLUTIONS ARCHITECT, DATA SOLUTIONS ARCHITECT-C Attending Provider Active Pipe Smoking Machine Offbearer Relationship Specialty Start Date End Date Yanique Espinosa MD [address] [facility] [address] [place] [address] PCP - General Internal Medicine 02/12/23 13, Pharmacist [phone] [place] [address] Pharmacist Pharmacy 11/13/19 Team Status: Inactive Member Role Status Dates Dr. Yanique Espinosa MD Primary Care Provider, Atten ding Provider Active Pipe Smoking Machine Offbearer Relationship Specialty Start Date End Date Yanique Espinosa MD [address] [facility] [address] [place] [phone] PCP - General Internal Medicine 02/12/23 13, Pharmacist [id number] [place] [address] Pharmacist Pharmacy 11/13/19 Pipe Smoking Machine Offbearer Relationship Specialty Start Date End Date Yanique Espinosa MD [address] [facility] [address] [place] [phone] PCP - General Internal Medicine 02/12/23 Pipe Smoking Machine Offbearer Relationship Specialty Start Date End Date Yanique Espinosa MD [address] [facility] [address] [place] [phone] PCP - General Internal Medicine 02/12/23 Pipe Smoking Machine Offbearer Relationship Specialty Start Date End Date Anastacia Virea III, MD PCP - General Family Medicine 02/01/15 09/22/20 13, Pharmacist [id number] [place] [address] Pharmacist Pharmacy 11/13/19 11/22/23 Team Status: Active [...] 2024 End: May 20, 2024 Dr. Rajani Cazares DO Attending Provider Active Start: May 20, [...] November 17, 2024 End: November 17, 2024 Team Status: Inactive Member Role/Relationship [...] November 17, 2024 End: November 17, 2024 Team Status: Inactive Member Role/Relationship Status Dates Dr. Yanique Espinosa MD Primary Care Provider Active Start: December 02, 2024 End: December 02, 2024 Dr. Yanique Espinosa MD Attending Provider Active Start: December 02, 2024 End: December 02, 2024 Dr. Yanique Espinosa MD Referring Provider Active Start: December 02, 2024 End: December 02, 2024 Team Status: Active Member Role/Relationship Status Dates Dr. Yanique Espinosa MD Primary Care Provider Active Start: December 12, 2024 Dr. Yanique Espinosa MD Attending Provider Active Start: December 12, 2024 Dr. Yanique Espinosa MD Referring Provider Active Start: December 12, 2024 Team Status: Active Member Role/Relationship Status Dates Dr. Yanique Espinosa MD Primary care physician Activ e Team Status: Inactive Member Role/Relationship Status Dates Dr. Yanique Espinosa MD Primary care physician Activ e Start: September 17, 2024 End: September 17, 2024 Dr. Yanique Espinosa MD Referring Provider Active Start: September 17, 2024 End: September 17, 2024 Dr. Harley Urbina DO Attending physician Active Start: September 17, 2024 End: September 17, 2024 Team Status: Inactive Member Role/Relationship Status Dates Dr. Yanique Espinosa MD Primary care physician Activ e Start: November 17, 2024 End: November 17, 2024 Dr. Yanique Espinosa MD Attending physician Active Start: November 17, 2024 End: November 17, 2024 Dr. Yanique Espinosa MD Referring Provider Active Start: November 17, 2024 End: November 17, 2024 Team Status: Inactive Member Role/Relationship Status Dates Dr. Yanique Espinosa MD Primary care physician Activ e Start: December 02, 2024 End: December 02, 2024 Dr. Yanique Espinosa MD Attending physician Active Start: December 02, 2024 End: December 02, 2024 Dr. Yanique Espinosa MD Referring Provider Active Start: December 02, 2024 End: December 02, 2024 Team Status: Active Member Role/Relationship Status Dates Dr. Yanique Espinosa MD Primary care physician Activ e Start: December 12, 2024 Dr. Yanique Espinosa MD Attending physician Active Start: December 12, 2024 Dr. Yanique Espinosa MD Referring Provider Active Start: December 12, 2024 Team Status: Active Member Role/Relationship Status Dates Dr. Yanique Espinosa MD Primary care physician Activ e Start: December 12, 2024 Dr. Yanique Espinosa MD Referring Provider Active Start: December 12, 2024 Dr. Mj Velez MD Attending physician Active Start: December 12, 2024 Team Status: Inactive Member Role/Relationship Status Dates Dr. Yanique Espinosa MD Primary care physician Activ e Start: December 26, 2024 End: December 26, 2024 Dr. Yanique Espinosa MD Attending physician Active Start: December 26, 2024 End: December 26, 2024 Dr. Yanique Espinosa MD Referring Provider Active Start: December 26, 2024 End: December 26, 2024 Goals (unrecognized section and content) Goals [...] BE BASED ON THE PRIMARY CLINICAL RECORDS. [employer] [employer] [facility]. provides no warranty or guarantee of the accuracy or completeness of information in this document.
--- NOTE | 2025-02-26 07:37 | STRESSREP ---
Stress Test Report Pharmacologic myocardial perfusion stress test. 69-year-old lady with a history of abnormal calcium score. Resting EKG demonstrates sinus rhythm with a right bundle branch block with a rate of 64 bpm. Resting blood pressure is 124/80 mmHg. 0.4 mg of regadenoson was infused per usual protocol followed by rapid intravenous saline flush injection. Continuous EKG monitoring was performed. The maximum heart rate was 81 bpm which was 54% of max impacted heart rate the maximum workload was 1 metabolic equivalent. At rest there were no ST or T wave changes noted to suggest ischemia and at peak infusion nonspecific ST changes were noted which did not meet the criteria for ischemia. No clinical angina is noted. The final blood pressure was 122/70 mmHg. Myocardial perfusion protocol. 13 point mCi of technetium 99m sestamibi was injected at rest. 0.4 mg of regadenoson was infused per usual protocol. At peak infusion 39.7 mCi of technetium 99m sestamibi was injected stress images were obtained stress and rest images were reconstructed and compared in the short axis vertical long and horizontal long axis. Gated images were also obtained. Perfusion SPECT analysis: Review of the stress images demonstrate normal uptake of tracer noted in all areas of the myocardium there is mild reduction of anterior perfusion noted. The resting images similar demonstrated normal uptake of tracer noted in all areas of the myocardium. Small amount of mild anterior ischemia cannot be completely excluded. Gated SPECT analysis: The gated ejection fraction is 77%. Conclusion: Mildly abnormal pharmacologic myocardial perfusion stress test. Preserved ejection fraction. Mild anterior ischemia present
== END | disposition home or self-care (01) ==
LOC: CVS 06:04
PROVIDERS: PCP Internal Medicine; Referring Provider Internal Medicine; Visit Provider Internal Medicine
DX: R07.89 Other chest pain (principal); R93.1 Abnormal findings on diagnostic imaging of heart and coronary circulation
CPT/HCPCS: 78452; 93017; A9500; A4216; J2785

== ENCOUNTER → 2025-03-27 | Outpatient (CLI) | payer MEDICARE, SELFPAY ==
[2025-03-27 13:16] LABS: Cholesterol 168 mg/dL (<=200); Low Density Lipoprotein Calc. 103 mg/dL; Triglycerides 79 mg/dL; Very Low Density Lipoprotein 16 mg/dL (5-40); cholesterol:hdl ratio screen 3.32
== END | disposition home or self-care (01) ==
LOC: MTLAB 10:30
PROVIDERS: PCP Internal Medicine; Referring Provider Internal Medicine; Visit Provider Internal Medicine
DX: E03.9 Hypothyroidism, unspecified (principal)
CPT/HCPCS: 36415; 80061; 84443